=== PATIENT | male | born 1950 | race Two or more races ===

== ENCOUNTER 2018-10-17 02:23 | Inpatient (IN) | payer MEDICARE, OTHER ==
[2018-10-17] VITALS (7 sets, daily range): BP systolic 126–163; BP diastolic 60–74
[~2018-10-17] VITALS: Ht 162.6 cm; Wt 55.8 kg
--- NOTE | 2018-10-17 02:30 | NUR ---
ED Nurse Note: Pt JITENDRA from [facility]. AP states pt was desaturating around 70'-80's on RA. Once placed on 4L NC, pt has been saturating between 92-96%. Pt states no SOB experienced. VSS aside from bradycardia. Pt has hx of emphysema. Pt connected to monitor. Resting comfortably.
[2018-10-17] MEDS ORDERED: TRADJENTA5 MG PO (02:41)
[2018-10-17] MEDS ORDERED: RENVELA0.8 GM ORAL (02:41)
[2018-10-17] MEDS ORDERED: HUMALOG100 UNIT/3 SUBQ (02:41)
[2018-10-17] MEDS ORDERED: AMLODIPINE BESY10 MG ORAL (02:41)
[2018-10-17] MEDS ORDERED: NORCO 5-325 TA1 EACH ORAL (02:41)
[2018-10-17] MEDS ORDERED: [UNRECOGNIZED DRUG - OTHER] (02:41)
[2018-10-17] MEDS ORDERED: TRAMADOL HCL50 MG ORAL (02:41)
[2018-10-17] MEDS ORDERED: ASPIRIN EC81 MG ORAL (02:41)
[2018-10-17] MEDS ORDERED: [UNRECOGNIZED DRUG - OTHER] (02:41)
[2018-10-17] MEDS ORDERED: CYMBALTA20 MG ORAL (02:41)
[2018-10-17] MEDS ORDERED: DOCUSATE SODIU100 MG ORAL (02:41)
[2018-10-17] MEDS ORDERED: ATENOLOL50 MG ORAL (02:41)
[2018-10-17] MEDS ORDERED: NEPHROVITE1 TAB ORAL (02:41)
[2018-10-17] MEDS ORDERED: MIRCERA100 MCG/0. IJ (02:41)
[2018-10-17] MEDS ORDERED: PYRIDOXINE HCL50 MG ORAL (02:41)
[2018-10-17 03:03] LABS: HEMATOCRIT 36.3 % (42.0-52.0); HEMOGLOBIN 11.4 G/DL (14.2-18.0); MEAN CORPUSCULAR VOLUME 98 FL (80-99); PLATELET COUNT 135 K/UL (150-450); RED BLOOD COUNT 3.71 M/UL (4.70-6.10); RED CELL DISTRIBUTION WIDTH 19.6 % (11.6-14.8); WHITE BLOOD COUNT 5.8 K/UL (4.8-10.8)
[2018-10-17 03:08] LABS: ANION GAP 9 mmol/L (5-15); BLOOD UREA NITROGEN 48 mg/dL (7-18); CALCIUM 9.1 MG/DL (8.5-10.1); CARBON DIOXIDE 26 MMOL/L (21-32); CHLORIDE 103 MMOL/L (98-107); CREATININE 4.3 MG/DL (0.55-1.30); POTASSIUM 4.1 MMOL/L (3.5-5.1); SODIUM 138 MMOL/L (136-145)
[2018-10-17 03:21] LABS: ALANINE AMINOTRANSFERASE 16 U/L (12-78); ALBUMIN 2.7 G/DL (3.4-5.0); ALBUMIN/GLOBULIN RATIO 0.4 (1.0-2.7); ALKALINE PHOSPHATASE 231 U/L (46-116); ASPARTATE AMINO TRANSFERASE 19 U/L (15-37); BILIRUBIN,TOTAL 0.5 MG/DL (0.2-1.0); CKMB 1.6 NG/ML (0.0-3.6); CREATINE KINASE 25 U/L (26-308)
--- NOTE | 2018-10-17 03:27 | Emergency Room Report ---
History of Present Illness General Chief Complaint: Dyspnea/Respdistress Source: Patient, Medical Record, EMS Present Illness HPI Is a 67-year-old male with a history of renal failure on hemodialysis. He also has history of COPD. [facility]. Per nursing staff, oxygenation on room air was dropping to the 80s. Patient was asymptomatic. He has no complaint. Denies any pain. Denies any shortness of breath. He is not oxygen dependent. Allergies: Coded Allergies: PHENYTOIN (Verified Allergy, Unknown, 10/17/18) Uncoded Allergies: PENICILLIN (Allergy, Unknown, 10/17/18) Patient History Past Medical History: see triage record, old chart reviewed, HTN, renal disease , dialysis Past Surgical History: other Pertinent Family History: none Social History: Denies: smoking Immunizations: other Reviewed Nursing Documentation: PMH: Agreed; PSxH: Agreed Nursing Documentation-PMH Hx Hypertension: Yes - primary pulmonary hypertension Hx Diabetes: Yes Hx Dialysis: Yes - mon,wed, fri. esrd, anemia Hx Neurological Problems: Yes - aka amputation left leg, muscle weakness Review of Systems Eye: Denies: eye pain, blurred vision ENT: Denies: ear pain, nose congestion, throat swelling Respiratory: Denies: cough, shortness of breath Cardiovascular: Denies: chest pain, palpitations Gastrointestinal: Denies: abdominal pain, diarrhea, nausea, vomiting Musculoskeletal: Denies: back pain, joint pain Skin: Denies: rash Neurological: Denies: headache, numbness Endocrine: Denies: increased thirst, increased urine Hematologic/Lymphatic: Denies: easy bruising All Other Systems: negative except mentioned in HPI Physical Exam Vital Signs Date Time Temp Pulse Resp B/P (MAP) Pulse Ox O2 Delivery O2 Flow Rate FiO2 10/17/18 02:26 97.9 51 16 154/61 96 Room Air 10/17/18 02:30 4.0 vitals unremarkable Sp02 EP Interpretation: reviewed, normal General Appearance: well appearing, no apparent distress, alert Head: normocephalic, atraumatic Eyes: bilateral eye PERRL, bilateral eye EOMI ENT: hearing grossly normal, normal pharynx Neck: full range of motion, supple, no meningismus Respiratory: chest non-tender, other - Distant breath sounds Cardiovascular #1: regular rate, rhythm, no murmur Gastrointestinal: normal bowel sounds, non tender, no mass, no organomegaly, no bruit, non-distended Musculoskeletal: back normal, normal range of motion, other - Left BKA Neurologic: alert Psychiatric: mood/affect normal Skin: warm/dry Medical Decision Making Diagnostic Impression: Primary Impression: Fluid overload, unspecified Qualified Codes: E87.70 - Fluid overload, unspecified Additional Impression: ESRD (end stage renal disease) on dialysis ER Course Patient presents with hypoxia secondary to fluid overloaded. He is comfortable but when off of oxygen his oxygenation drops. [facility] note he's been noncompliant. Unknown whether or not he goes to dialysis regularly. We'll admit for dialysis. No evidence of pneumonia, ACS, PE to name a few. I contacted Dr. Michelle for admission for Dr. Andrade group. EKG Diagnostic Results Rate: normal Rhythm: NSR ST Segments: other - NSST changes Rhythm Strip Diag. Results Rhythm Strip Time: 03:26 EP Interpretation: yes Rate: 50 Rhythm: NSR, no PVC's, no ectopy Chest X-Ray Diagnostic Results Chest X-Ray Diagnostic Results : Chest X-Ray Ordered: Yes # of Views/Limited/Complete: 1 View Indication: Shortness of Breath EP Interpretation: Yes Interpretation: no effusion, no pneumothorax, other - CM with vasc congestion Impression: Other - chf Electronically Signed by: Malcolm Pratt MD Last Vital Signs Date Time Temp Pulse Resp B/P (MAP) Pulse Ox O2 Delivery O2 Flow Rate FiO2 10/17/18 02:30 97.9 51 16 154/61 96 Nasal Cannula 4.0 Status: improved Disposition: ELOPED Condition: Serious Referrals: Pam Andrade MD (PCP) Malcolm rPatt MD Oct 17, 2018 03:27
--- NOTE | 2018-10-17 04:50 | NUR ---
TRANSFER TO FLOOR: Patient transferred to Telemetry Unit, rm 202-1. Report given to SONG Hunter. All belongings taken to floor, belongings list signed and in chart. VSS. Deion/Ox4. Pt transferred to floor with technical system analyst and nurse at side. Attached to knife finisher.
--- NOTE | 2018-10-17 05:10 | NUR ---
NURSE NOTES: Received pt. from ED at 0450 via shari. Pt. transferred to bed without any incident. Received report from SONG Vargas. Pt. is A/O x 4. [place] pt. to unit, room, and hospital policies. physical security specialist is placed; pt. is in NSR. IV site intact, asymptomatic and patent. Bed is locked and in the lowest position. Call light within reach. Belongings list checked and signed. Vitals signs are stable. No SOB or acute distress noted at this time. Will contact Dr. Andrade for admission orders.
--- NOTE | 2018-10-17 06:45 | NUR ---
NURSE NOTES: Contacted Dr. Andrade for admission orders. call center operator doctor, Dr. Rawls was contacted. Awaiting call back.
--- NOTE | 2018-10-17 07:10 | NUR ---
NURSE NOTES: I received the patient resting in bed. Patient alert and oriented x4. Bed in the lowest position and call light within reach. IV patent and dressing dry and intact. I will continue to monitor the patient and implement care.
--- NOTE | 2018-10-17 07:15 | NUR ---
NURSE NOTES: Dr. Rawls called back to inform that Dr. Pham will input admission orders.
[2018-10-17] MEDS ORDERED: traMADol 50mg tab ORAL PRN (08:00)
--- NOTE | 2018-10-17 08:03 | History & Physical ---
History of Present Illness General Date patient seen: Oct 17, 2018 Time patient seen: 07:55 Reason for Hospitalization: Dyspnea/Respdistress Present Illness HPI 67 yo male with h/o dm, esrd, htn presents from SNF due to shortness of breath and desaturating on room air. Patient receives HD, last on Monday. Denies any chest pain, no n/v, denies any headaches, denies abd pain/nausea/vomiting. states he is compliant with medications. Requiring 4L ncl supplemental O2 to saturate above 90%, was low 80s high 70s on room air. social hx reviewed: denies smoking, alcohol use or drug use past fam hx reviewed: denies any sig past fam hx code status reviewed: full code Allergies: Coded Allergies: PHENYTOIN (Verified Allergy, Unknown, 10/17/18) Uncoded Allergies: PENICILLIN (Allergy, Unknown, 10/17/18) Medication History Scheduled Amlodipine Besylate* (Amlodipine Besylate*), 10 MG ORAL DAILY, (Reported) Aspirin Ec* (Aspirin Ec*), 81 MG ORAL DAILY, (Reported) Atenolol* (Tenormin*), 50 MG ORAL TWICE A DAY, (Reported) Docusate Sodium* (Docusate Sodium*), 200 MG ORAL DAILY, (Reported) Duloxetine (Cymbalta), 20 MG ORAL DAILY, (Reported) Pyridoxine Hcl* (Vitamin B-6*), 25 MG ORAL DAILY, (Reported) Sevelamer Carbonate* (Renvela*), 800 MG ORAL THREE TIMES A DAY, (Reported) Vitamin B Cmplx/Vit C/Folic AC (Nephro-Trent Tablet), 1 TAB ORAL DAILY, (Reported ) Scheduled PRN Hydrocodone Bit/Acetaminophen 5-325* ([place] 5-325*), 1 TAB ORAL Q4H PRN for For Pain, (Reported) Tramadol Hcl* (Ultram*), 50 MG ORAL Q6H PRN for For Pain, (Reported) Miscellaneous Medications Insulin Lispro (Humalog), 0 SUBQ, (Reported) Linagliptin (Tradjenta), 5 MG PO, (Reported) Methoxy Peg-Epoetin Beta (Mircera), 100 MCG IJ, (Reported) [lipovitan], (Reported) [voncomycin ivpb], (Reported) Patient History Healthcare decision maker Resuscitation status Full Code Advanced Directive on File Review of Systems Review of Symptoms General ROS: no weight loss or fever Psychological ROS: no depression or mood changes, no memory loss Ophthalmic ROS: no visual changes or eye irritation ENT ROS: no nasal congestion, hearing loss, dizziness Allergy and Immunology ROS: no allergic symptoms or urticaria Hematological and Lymphatic ROS: no swollen glands, unusual bleeding or bruising Endocrine ROS: no polyuria, polydipsia, weight changes, temperature intolerance Respiratory ROS: no cough, +shortness of breath, no wheezing Cardiovascular ROS: no chest pain or dyspnea on exertion Gastrointestinal ROS: denies abdominal pain, bright red blood in stool. Musculoskeletal ROS: no myalgias or arthralgias Neurological ROS: no TIA or stroke symptoms Dermatological ROS: no new or changing skin lesions, rashes or pruritis Physical Exam Physical Exam General appearance: alert, cooperative, no distress, appears stated age Head: Normocephalic, without obvious abnormality, atraumatic Eyes: conjunctivae/corneas clear. PERRL, EOM's intact. Fundi benign Throat: Lips, mucosa, and tongue normal. Teeth and gums normal Neck: supple, symmetrical, trachea midline, no adenopathy, thyroid: not enlarged, symmetric, no tenderness/mass/nodules, no carotid bruit and no JVD Lungs: clear to auscultation bilaterally Heart: regular rate and rhythm, S1, S2 normal, no murmur, click, rub or gallop Abdomen: soft, non-tender. Bowel sounds normal. No masses, no organomegaly Extremities: extremities normal, atraumatic, no cyanosis or edema Pulses: 2+ and symmetric Skin: Skin color, texture, turgor normal. No rashes or lesions Neurologic: Grossly normal Last 24 Hour Vital Signs Date Time Temp Pulse Resp B/P (MAP) Pulse Ox O2 Delivery O2 Flow Rate FiO2 10/17/18 05:07 Nasal Cannula 4.0 10/17/18 05:07 98.0 48 20 148/48 96 Nasal Cannula 4.0 10/17/18 05:00 97.7 49 18 126/70 (88) 91 10/17/18 02:30 97.9 51 16 154/61 96 Nasal Cannula 4.0 10/17/18 02:30 51 16 Room Air 10/17/18 02:26 97.9 51 16 154/61 96 Room Air Laboratory Tests Test 10/17/18 02:36 White Blood Count 5.8 K/UL (4.8-10.8) Red Blood Count 3.71 M/UL (4.70-6.10) L Hemoglobin 11.4 G/DL (14.2-18.0) L Hematocrit 36.3 % (42.0-52.0) L Mean Corpuscular Volume 98 FL (80-99) Mean Corpuscular Hemoglobin 30.7 PG (27.0-31.0) Mean Corpuscular Hemoglobin Concent 31.4 G/DL (32.0-36.0) L Red Cell Distribution Width 19.6 % (11.6-14.8) H Platelet Count 135 K/UL (150-450) L Mean Platelet Volume 9.2 FL (6.5-10.1) Neutrophils (%) (Auto) % (45.0-75.0) Lymphocytes (%) (Auto) % (20.0-45.0) Monocytes (%) (Auto) % (1.0-10.0) Eosinophils (%) (Auto) % (0.0-3.0) Basophils (%) (Auto) % (0.0-2.0) Sodium Level 138 MMOL/L (136-145) Potassium Level 4.1 MMOL/L (3.5-5.1) Chloride Level 103 MMOL/L (98-107) Carbon Dioxide Level 26 MMOL/L (21-32) Anion Gap 9 mmol/L (5-15) Blood Urea Nitrogen 48 mg/dL (7-18) H Creatinine 4.3 MG/DL (0.55-1.30) H Estimat Glomerular Filtration Rate 13.9 mL/min (>60) Glucose Level 151 MG/DL (74-106) H Calcium Level 9.1 MG/DL (8.5-10.1) Total Bilirubin 0.5 MG/DL (0.2-1.0) Aspartate Amino Transf (AST/SGOT) 19 U/L (15-37) Alanine Aminotransferase (ALT/SGPT) 16 U/L (12-78) Alkaline Phosphatase 231 U/L (46-116) H Total Creatine Kinase 25 U/L (26-308) L Creatine Kinase MB 1.6 NG/ML (0.0-3.6) Creatine Kinase MB Relative Index 6.4 Troponin I 0.031 ng/mL (0.000-0.056) Pro-B-Type Natriuretic Peptide > 65070 pg/mL (0-125) H Total Protein 9.4 G/DL (6.4-8.2) H Albumin 2.7 G/DL (3.4-5.0) L Globulin 6.7 g/dL Albumin/Globulin Ratio 0.4 (1.0-2.7) L Height (Feet): 5 Height (Inches): 4.00 Weight (Pounds): 124 Assessment/Plan Status: stable Assessment/Plan Acute Hypoxic respiratory Failure Fluid Overload ESRD on HD - desating to low 80s high 70s on room air, requiring 4L ncl supplemental o2 - fluid overloaded, patient has esrd on hd MWF, nephrology consulted, plan for HD soon - cont to monitor closely, adjust o2 needs accordingly - monitor labs - admit inpatient Essential HTN - resume home meds - monitor closely DMII - iss - accuchecks - monitor closely ppx: scd, HSQ diet: renal HD/diabetic diet DVT Prophylaxis: SCD, HSQ Code Status: Full Hospital Classification Declaration: Based on this initial evaluation, and depending on the patient's clinical course, I anticipate that this patient will require hospitalization for 2-3 days for fluid overload and close respiratory/ hemodynamic monitoring. I have reviewed all imaging, labs and medications Disposition: Once the patient is stable to leave the hospital, I anticipate the patient will likely be discharged to the following environment: home with vs SNF I spent over 66 minutes on this patient's case, and 45 minutes were dedicated to counseling and/or care coordination. Discussed with patient/family, nursing staff, SW/CM, and desktop support consultant regarding clinical status, treatment course, and disposition planning. Time of note may not reflect time of encounter. MIPS Hospital declaration INPATIENT level of care is warranted for this patient because patient is a 89 year old with esrd on hd who presents with suspicion of fluid overload. I have a high level of concern because patient is requiring supplemental o2. Patient is at high risk for resp compromise. Plan of care/treatment include supplemental o2, nephro consult, HD, close lab monitoring. Patient care is expected to be greater than 2 midnights. Disposition: Once the patient is stable to leave the hospital, I anticipate the patient will likely be discharged to the following environment: SNF Estimated discharge date: 10-20-18 MIPS (Merit-based Incentive Payment System) Applicable CPT: 60078 CHECK ALL THAT ARE MET: Measure #5 (CHF): All ages. Prescribe LOBITO/ARB upon discharge for patients with left ventricular systolic dysfunction. If not, the reason is clearly documented in the medical chart. Measure #8 (CHF): All ages. Prescribe a beta whit upon discharge for patients with left ventricular systolic dysfunction. If not, the reason is clearly documented in the medical chart. x Measure #47 Advance care plan or surrogate decision maker documented in the medical record. x Measure #130 The provider has documented, updated, or reviewed the patients current medication list and has documented it in the patients note. Measure #374 (All): Send report to referring provider. Measure #407(Sepsis due to MSSA bacteremia): Age 18+ Patient treated with a beta-lactam antibiotic (Nafcillin, Oxacillin or Cefazolin) as definitive therapy. MEDICAL COMPLEXITY High complexity medical decision making (need 2/3 categories) Problem - need 4 points x Acute/new problem with new plan for workup (4 points, 1 max) Acute/new problem without additional workup (3 points, 1 max) x Unstable chronic problem actively being managed (2 point each, 2 max) x Stable chronic problem actively being managed (1 point each, 2 max) Self-limited/transient process (constipation, muscle ache, etc) (1 point each , 2 max) Data - need 4 points x Reviewed labs/imaging studies (1 points, 2 max) x Independent review of imaging (EKG, xrays, etc) (2 points, 2 max) x Discussed case with consult/other MD/RN (2 points, 2 max) High Risk - qualify if have one of the following: x Severe exacerbation of acute problem, acute mental status change, IV narcotics, monitoring drug levels (vancomycin, INR, tacrolimus etc) Debby Pham MD Oct 17, 2018 08:03
--- NOTE | 2018-10-17 08:04 | General Progress Note ---
Advance Care Planning Advance Care Planning Advance Care Planning [facility] An independent Hospitalist group, where every patient is our [facility] Internal Medicine Hospitalist Advanced Care Planning Note Please contact us at Date of Discussion: A [id number] discussion with the patient regarding the patient's advanced care planning took place during this hospitalization on the above date. The discussion included the explanation and discussion of advance directives and associated forms/documents, as well as the patient's current code status. We also discussed at length the patient's medical conditions (both acute and chronic), general prognosis, treatment options, and goals of care. The following summarizes the discussion: Advance Care Planning/Goals of Care: - Will attempt to fill out an AD and/or POLST with the patient prior to discharge, if not already completed - Continue current evaluation and management of any acute and chronic medical issues - Will continue to support the patient/family - Will continue to discuss both short- and long-term goals of care DPOA-HC/Surrogate Decision Maker: None currently appointed Code Status: Full Code Advanced Care Planning Forms/Documents Completed: Deferred until later encounter/visit A total of 35 minutes was spent on this discussion, including counseling, answering questions, and completing, if any, pertinent advanced care planning forms/documents. Time of note may not reflect time of encounter. Debby Pham MD Oct 17, 2018 08:04
--- NOTE | 2018-10-17 08:10 | NUR ---
HAND-OFF: Report given to SONG Bustamante.
--- NOTE | 2018-10-17 08:19 | NUR ---
NURSE NOTES: [facility] dialysis contacted about patient's dialysis order for 10/17.
[2018-10-17] MEDS: Pyridoxine 50mg tab ORAL SCH (08:51)
[2018-10-17] MEDS: Nephrovite tab (Rena-Vite) ORAL SCH (08:52)
[2018-10-17] MEDS: Aspirin EC 81mg tab ORAL SCH (08:55)
[2018-10-17] MEDS: Docusate 100mg cap ORAL SCH (08:55)
[2018-10-17] MEDS: NovoLOG Insulin Flexpen SUBQ SCH ×3 (11:30→21:01)
--- NOTE | 2018-10-17 12:02 | Diagnostic Imaging Report ---
Indication: Shortness of breath Technique: One view of the chest Comparison: none Findings: Triangular opacity in the right perihilar region likely represents an area of atelectasis or scarring, although mass lesion or consolidation or not excludable. There is somewhat ill-defined interstitial and airspace disease at the right lung base, suspect mostly chronic. There is bilateral perihilar acute wall thickening. There is a 1.6 cm nodule at the left lung base, equivocally calcified. The pleural spaces are clear. The heart size is upper limits of normal. Vascular stents are seen in the right arm and in the expected region of the right innominate vein. Calcified granuloma is seen in the right infrahilar region Impression: Right perihilar atelectasis or scar versus mass or infiltrate. Recommend follow-up radiographs. Ill-defined right basilar opacities, likely chronic but could represent acute infiltrate Left basilar 1.6 cm nodule, likely but not definitively a calcified granuloma. Further CT follow-up should be considered or comparison with any outside images that may be available Other findings as noted Findings discussed by phone with Dr. Cross at the time of interpretation
--- NOTE | 2018-10-17 13:43 | NUR ---
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 97.9 HR 51 RR 16 B/P 154/61 BNP>[id number] CXR= RIGHT PERIHILAR ATELECTASIS OR MASS OR INFILTRATES IS: LASIX IV ADMITTED TO TELE @ 0400 TELE STATUS DCP RETURN TO [facility]
--- NOTE | 2018-10-17 13:50 | NUR ---
NURSE NOTES: Patient refused dialysis treatment. Dr. Priec made aware. Patient resting in bed. He does not display any signs of distress or SOB. Bed in the lowest position and call light within reach.
--- NOTE | 2018-10-17 14:00 | Consultation ---
Consult Note Consult Note asked to eval for dialysis management- Is a 67-year-old male with a history of renal failure on hemodialysis. He also has history of COPD. He was brought in by EMS from long term for decreased oxygenation. Per nursing staff, oxygenation on room air was dropping to the 80s. Patient was asymptomatic. He has no complaint. Denies any pain. Denies any shortness of breath. He is not oxygen dependent. Allergies: Coded Allergies: PHENYTOIN (Verified Allergy, Unknown, 10/17/18) Uncoded Allergies: PENICILLIN (Allergy, Unknown, 10/17/18) Hx Hypertension: Yes - primary pulmonary hypertension Hx Diabetes: Yes Hx Dialysis: Yes - mon,wed, fri. esrd, anemia Hx Neurological Problems: Yes - aka amputation left leg, muscle weakness interviewed examined Assessment/Plan ESRD on HD M W Fr has right arm fistula Volume overload bradycardia HD and UF garo adjust BP meds 2D Echo stop beta blockers Alessandro Price MD Oct 17, 2018 14:00
[2018-10-17] MEDS ORDERED: HydrALAZINE 25mg tab ORAL SCH (14:06)
[2018-10-17] MEDS: HydrALAZINE 25mg tab ORAL SCH ×2 (14:26→18:34)
--- NOTE | 2018-10-17 14:38 | Consultation ---
History of Present Illness General Date patient seen: Oct 17, 2018 Chief Complaint: Dyspnea/Respdistress Present Illness Allergies: Coded Allergies: PHENYTOIN (Verified Allergy, Unknown, 10/17/18) Uncoded Allergies: PENICILLIN (Allergy, Unknown, 10/17/18) Medication History Scheduled Amlodipine Besylate* (Amlodipine Besylate*), 10 MG ORAL DAILY, (Reported) Aspirin Ec* (Aspirin Ec*), 81 MG ORAL DAILY, (Reported) Atenolol* (Tenormin*), 50 MG ORAL TWICE A DAY, (Reported) Docusate Sodium* (Docusate Sodium*), 200 MG ORAL DAILY, (Reported) Duloxetine (Cymbalta), 20 MG ORAL DAILY, (Reported) Pyridoxine Hcl* (Vitamin B-6*), 25 MG ORAL DAILY, (Reported) Sevelamer Carbonate* (Renvela*), 800 MG ORAL THREE TIMES A DAY, (Reported) Vitamin B Cmplx/Vit C/Folic AC (Nephro-Trent Tablet), 1 TAB ORAL DAILY, (Reported ) Scheduled PRN Hydrocodone Bit/Acetaminophen 5-325* ([place] 5-325*), 1 TAB ORAL Q4H PRN for For Pain, (Reported) Tramadol Hcl* (Ultram*), 50 MG ORAL Q6H PRN for For Pain, (Reported) Miscellaneous Medications Insulin Lispro (Humalog), 0 SUBQ, (Reported) Linagliptin (Tradjenta), 5 MG PO, (Reported) Methoxy Peg-Epoetin Beta (Mircera), 100 MCG IJ, (Reported) [lipovitan], (Reported) [voncomycin ivpb], (Reported) Patient History Healthcare decision maker Resuscitation status Full Code Advanced Directive on File Physical Exam Last 24 Hour Vital Signs Date Time Temp Pulse Resp B/P (MAP) Pulse Ox O2 Delivery O2 Flow Rate FiO2 10/17/18 14:26 154/77 10/17/18 11:53 51 10/17/18 11:36 98.0 18 157/72 (100) 100 10/17/18 09:00 48 157/72 10/17/18 09:00 48 157/72 10/17/18 08:00 Nasal Cannula 4.0 10/17/18 08:00 97.5 18 149/68 (95) 99 10/17/18 07:54 48 10/17/18 05:07 Nasal Cannula 4.0 10/17/18 05:07 98.0 48 20 148/48 96 Nasal Cannula 4.0 10/17/18 05:00 97.7 49 18 126/70 (88) 91 10/17/18 02:30 97.9 51 16 154/61 96 Nasal Cannula 4.0 10/17/18 02:30 51 16 Room Air 10/17/18 02:26 97.9 51 16 154/61 96 Room Air Laboratory Tests Test 10/17/18 02:36 White Blood Count 5.8 K/UL (4.8-10.8) Red Blood Count 3.71 M/UL (4.70-6.10) L Hemoglobin 11.4 G/DL (14.2-18.0) L Hematocrit 36.3 % (42.0-52.0) L Mean Corpuscular Volume 98 FL (80-99) Mean Corpuscular Hemoglobin 30.7 PG (27.0-31.0) Mean Corpuscular Hemoglobin Concent 31.4 G/DL (32.0-36.0) L Red Cell Distribution Width 19.6 % (11.6-14.8) H Platelet Count 135 K/UL (150-450) L Mean Platelet Volume 9.2 FL (6.5-10.1) Neutrophils (%) (Auto) % (45.0-75.0) Lymphocytes (%) (Auto) % (20.0-45.0) Monocytes (%) (Auto) % (1.0-10.0) Eosinophils (%) (Auto) % (0.0-3.0) Basophils (%) (Auto) % (0.0-2.0) Sodium Level 138 MMOL/L (136-145) Potassium Level 4.1 MMOL/L (3.5-5.1) Chloride Level 103 MMOL/L (98-107) Carbon Dioxide Level 26 MMOL/L (21-32) Anion Gap 9 mmol/L (5-15) Blood Urea Nitrogen 48 mg/dL (7-18) H Creatinine 4.3 MG/DL (0.55-1.30) H Estimat Glomerular Filtration Rate 13.9 mL/min (>60) Glucose Level 151 MG/DL (74-106) H Calcium Level 9.1 MG/DL (8.5-10.1) Total Bilirubin 0.5 MG/DL (0.2-1.0) Aspartate Amino Transf (AST/SGOT) 19 U/L (15-37) Alanine Aminotransferase (ALT/SGPT) 16 U/L (12-78) Alkaline Phosphatase 231 U/L (46-116) H Total Creatine Kinase 25 U/L (26-308) L Creatine Kinase MB 1.6 NG/ML (0.0-3.6) Creatine Kinase MB Relative Index 6.4 Troponin I 0.031 ng/mL (0.000-0.056) C-Reactive Protein, Quantitative 4.8 mg/dL (0.00-0.90) H Pro-B-Type Natriuretic Peptide > 46370 pg/mL (0-125) H Total Protein 9.4 G/DL (6.4-8.2) H Albumin 2.7 G/DL (3.4-5.0) L Globulin 6.7 g/dL Albumin/Globulin Ratio 0.4 (1.0-2.7) L Height (Feet): 5 Height (Inches): 4.00 Weight (Pounds): 124 Medications Current Medications Medications (Trade) Dose Ordered Sig/Ronald Route PRN Reason Start Time Stop Time Status Last Admin Dose Admin Amlodipine Besylate (Norvasc) 10 mg DAILY ORAL 10/17/18 09:00 11/16/18 08:59 Aspirin (Ecotrin) 81 mg DAILY ORAL 10/17/18 09:00 11/16/18 08:59 Dextrose (Dextrose 50%) 25 ml Q30M PRN IV Hypoglycemia 10/17/18 08:00 11/16/18 07:59 Dextrose (Dextrose 50%) 50 ml Q30M PRN IV Hypoglycemia 10/17/18 08:00 11/16/18 07:59 Docusate Sodium (Colace) 200 mg DAILY ORAL 10/17/18 09:00 11/16/18 08:59 Duloxetine HCl (Cymbalta) 20 mg DAILY ORAL 10/17/18 09:00 11/16/18 08:59 10/17/18 08:51 Hydralazine HCl (Apresoline) 25 mg Q6HR ORAL 10/17/18 14:07 11/16/18 14:06 10/17/18 14:26 Insulin Aspart (NovoLOG) BEFORE MEALS AND HS SUBQ 10/17/18 11:30 11/16/18 11:29 Pyridoxine HCl (Vitamin B6) 25 mg DAILY ORAL 10/17/18 09:00 11/16/18 08:59 10/17/18 08:51 Sevelamer Carbonate (Renvela) 800 mg THREE TIMES A DAY ORAL 10/17/18 09:00 11/16/18 08:59 10/17/18 14:25 Tamsulosin HCl (Flomax) 0.4 mg BEDTIME ORAL 10/17/18 21:00 11/16/18 20:59 Tramadol HCl (Ultram) 50 mg Q6H PRN ORAL For Pain 10/17/18 08:00 10/24/18 07:59 Vitamin B Complex/ Vit C/Folic Acid (Nephrovite) 1 tab DAILY ORAL 10/17/18 09:00 11/16/18 08:59 10/17/18 08:52 Assessment/Plan Assessment/Plan Hematology Consultation REQ MD: Dr. Pham Date patient seen: Oct 17, 2018 Reason for Hospitalization: Dyspnea/Respdistress RFC: Hyperproteinemia, anemia, low plts HPI 67 yo male with h/o dm, esrd, htn presents from SNF due to shortness of breath and desaturating on room air. Patient receives HD, last on Monday. Denies any chest pain, no n/v, denies any headaches, denies abd pain/nausea/vomiting. states he is compliant with medications. Requiring 4L ncl supplemental O2 to saturate above 90%, was low 80s high 70s on room air. bnp was high on admission , this is his first one and heme was consulted, other lab work is pending Social hx reviewed: denies smoking, alcohol use or drug use Past fam hx reviewed: denies any sig past fam hx Code status reviewed: full code Allergies: PHENYTOIN (Verified Allergy, Unknown, 10/17/18) Uncoded Allergies: PENICILLIN (Allergy, Unknown, 10/17/18) Meds Amlodipine Besylate* (Amlodipine Besylate*), 10 MG ORAL DAILY, (Reported) Aspirin Ec* (Aspirin Ec*), 81 MG ORAL DAILY, (Reported) Atenolol* (Tenormin*), 50 MG ORAL TWICE A DAY, (Reported) Docusate Sodium* (Docusate Sodium*), 200 MG ORAL DAILY, (Reported) Duloxetine (Cymbalta), 20 MG ORAL DAILY, (Reported) Pyridoxine Hcl* (Vitamin B-6*), 25 MG ORAL DAILY, (Reported) Sevelamer Carbonate* (Renvela*), 800 MG ORAL THREE TIMES A DAY, (Reported) Vitamin B Cmplx/Vit C/Folic AC (Nephro-Trent Tablet), 1 TAB ORAL DAILY, (Reported ) Scheduled PRN Hydrocodone Bit/Acetaminophen 5-325* ([place] 5-325*), 1 TAB ORAL Q4H PRN for For Pain, (Reported) Tramadol Hcl* (Ultram*), 50 MG ORAL Q6H PRN for For Pain, (Reported) Miscellaneous Medications Insulin Lispro (Humalog), 0 SUBQ, (Reported) Linagliptin (Tradjenta), 5 MG PO, (Reported) Methoxy Peg-Epoetin Beta (Mircera), 100 MCG IJ, (Reported) [lipovitan], (Reported) [voncomycin ivpb], (Reported) Healthcare decision maker Resuscitation status Full Code Advanced Directive on File ROS: Constitutional: No fever, no chills, no night sweats, no fatigue Skin: No rashes, lumps, itchiness, dryness HEENT: No CARRERA, ear ache, visual changes, double vision, nosebleeds, sore throat, lumps, swollen glands Breasts: No lumps, pain, discharge Pulmonary: No cough, sputum, shortness of breath, coughing up blood, hemoptysis Cardiovascular: No chest pain, tightness, palpitations, syncope, claudication, orthopnea, PND GI: No nausea, vomiting, diarrhea, melena, hematochezia, change in appetite, abdominal pain : No dysuria, frequency, urgency, urinary incontinence, foamy urine Musculoskeletal: No joint swelling or muscle pain, trauma, back pain Neurologic: No dizziness, fainting, seizures, changes in smell or taste Psychiatric: No nervousness, stress, or depression, anxiety, hallucinations Endocrine: No weight change, heat or cold intolerance, tremor, insomnia Physical Exam: General Appearance: A+O x3, NAD HEENT: normocephalic, atraumatic Neck: non-tender, normal alignment Respiratory/Chest: chest wall non-tender, lungs clear Cardiovascular/Chest: normal peripheral pulses, normal rate Abdomen: normal bowel sounds, non tender Extremities: normal range of motion Last 24 Hour Vital Signs Date Time Temp Pulse Resp B/P (MAP) Pulse Ox O2 Delivery O2 Flow Rate FiO2 10/17/18 05:07 Nasal Cannula 4.0 10/17/18 05:07 98.0 48 20 148/48 96 Nasal Cannula 4.0 10/17/18 05:00 97.7 49 18 126/70 (88) 91 10/17/18 02:30 97.9 51 16 154/61 96 Nasal Cannula 4.0 10/17/18 02:30 51 16 Room Air 10/17/18 02:26 97.9 51 16 154/61 96 Room Air Laboratory Tests Test 10/17/18 02:36 White Blood Count 5.8 K/UL (4.8-10.8) Red Blood Count 3.71 M/UL (4.70-6.10) L Hemoglobin 11.4 G/DL (14.2-18.0) L Hematocrit 36.3 % (42.0-52.0) L Mean Corpuscular Volume 98 FL (80-99) Mean Corpuscular Hemoglobin 30.7 PG (27.0-31.0) Mean Corpuscular Hemoglobin Concent 31.4 G/DL (32.0-36.0) L Red Cell Distribution Width 19.6 % (11.6-14.8) H Platelet Count 135 K/UL (150-450) L Mean Platelet Volume 9.2 FL (6.5-10.1) Neutrophils (%) (Auto) % (45.0-75.0) Lymphocytes (%) (Auto) % (20.0-45.0) Monocytes (%) (Auto) % (1.0-10.0) Eosinophils (%) (Auto) % (0.0-3.0) Basophils (%) (Auto) % (0.0-2.0) Sodium Level 138 MMOL/L (136-145) Potassium Level 4.1 MMOL/L (3.5-5.1) Chloride Level 103 MMOL/L (98-107) Carbon Dioxide Level 26 MMOL/L (21-32) Anion Gap 9 mmol/L (5-15) Blood Urea Nitrogen 48 mg/dL (7-18) H Creatinine 4.3 MG/DL (0.55-1.30) H Estimat Glomerular Filtration Rate 13.9 mL/min (>60) Glucose Level 151 MG/DL (74-106) H Calcium Level 9.1 MG/DL (8.5-10.1) Total Bilirubin 0.5 MG/DL (0.2-1.0) Aspartate Amino Transf (AST/SGOT) 19 U/L (15-37) Alanine Aminotransferase (ALT/SGPT) 16 U/L (12-78) Alkaline Phosphatase 231 U/L (46-116) H Total Creatine Kinase 25 U/L (26-308) L Creatine Kinase MB 1.6 NG/ML (0.0-3.6) Creatine Kinase MB Relative Index 6.4 Troponin I 0.031 ng/mL (0.000-0.056) Pro-B-Type Natriuretic Peptide > 49802 pg/mL (0-125) H Total Protein 9.4 G/DL (6.4-8.2) H Albumin 2.7 G/DL (3.4-5.0) L Globulin 6.7 g/dL Albumin/Globulin Ratio 0.4 (1.0-2.7) L Height (Feet): 5 Height (Inches): 4.00 Weight (Pounds): 124 Assessment/Plan # Anemia of chronic disease (or of iron deficiency) due to underlying chronic medical issues, multifactorial --> Anemia w/u has been ordered --> No evidence of hemolysis is noted, peripheral smear has been reviewed. --> Hgb goal >7. Transfuse prn. --> Epogen or iron at this time is not particularly indicated # Thrombocytopenia - potential causes multifactorial, evaluate liver and viral etiologies to begin, also could be related to underlying medications patient has received. --> Hep panel and HIV ordered --> US abd to evaluate for cirrhosis and hsm ordered --> Peripheral smear ordered to evaluate for blasts /schistocytes --> abx and other meds have been reviewed --> ok for ppx if plt >50k w/ either heparin or lovenox --> Transfuse if Plt < 20k and fever, or if Plt < 10k without fever # Hyperproteinemia -- with elevated protein --> spep has been ordered # Anemia of kidney disease -- with esrd to see renal --> epo can consider as per renal # Acute Hypoxic respiratory Failure potentially due to Fluid Overload --> as per cards # ESRD on HD --> desating to low 80s high 70s on room air, requiring 4L ncl supplemental o2 --> fluid overloaded, patient has esrd on hd MWF, nephrology consulted, plan for HD soon --> cont to monitor closely, adjust o2 needs accordingly # Essential HTN --> resume home meds --> monitor closely # DMII --> iss --> accuchecks The timing of this note does not necessarily reflect the time of the patient was seen Greatly appreciate consultation! Vadim Márquez MD Oct 17, 2018 14:38
--- NOTE | 2018-10-17 14:41 | NUR ---
NURSE NOTES:WOUND CARE NOTES:Pt presents with full thickness ulcer R heel which pt stated he has had for approx 2 months (L)3.2cm x (W)2.5cm .20% slough noted to base of of wound ,otherwise romeo and moist.Bone palpable .(+) maceration along borders.Periwound fluctuant without erythema. Dark discoloration R 1st metatarsal with purplish colour at plantar aspect .Pt denied pain or tenderness when minimally palpated. L BKA stump with dry scab noted laterally at base of stump. Buttocks and sacrum without erythema or signs of skin breakdown.Sacral and coccygeal is bony and risks for skin breakdown. Pt demonstrated ability to self reposition when instructed and has been educated on preventing Skin breakdown.Instructed to reposition at least every1-2 hours and to avoid sliding against bed-linens. Tx.Plan:Cleanse R heel wound with Saline.Apply Therahoney to wound. Apply Cavilon Skin Barrier along borders and Periwound.Cover with Abd and wrap with Kerlix Daily and prn. Apply Benzoin Tincture Swab to R 1st metatarsal and wrap with Kerlix Daily and prn. Apply Moisture Barrier Paste to sacral area .Cover with Optifoam drsg .Change every 3 days and prn. Off-load R heel with pillow. Encourage and assist as needed with repositioning at least every 2hours or as tolerated.
--- NOTE | 2018-10-17 15:16 | Consultation ---
History of Present Illness General Date patient seen: Oct 17, 2018 Chief Complaint: Dyspnea/Respdistress Present Illness HPI 67M multiple medical comorbidities who is a long-term resident presented for SOB and respiratory insufficiency. Hx of chronic wounds being cared for at outside facility. Surgery called to evaluate and assist with care of wounds during hospital stay. patient seen, chart reviewed, patient examined. states he feels okay. has daily wound nurse at facility and weekly doctor visits Allergies: Coded Allergies: PHENYTOIN (Verified Allergy, Unknown, 10/17/18) Uncoded Allergies: PENICILLIN (Allergy, Unknown, 10/17/18) Medication History Scheduled Amlodipine Besylate* (Amlodipine Besylate*), 10 MG ORAL DAILY, (Reported) Aspirin Ec* (Aspirin Ec*), 81 MG ORAL DAILY, (Reported) Atenolol* (Tenormin*), 50 MG ORAL TWICE A DAY, (Reported) Docusate Sodium* (Docusate Sodium*), 200 MG ORAL DAILY, (Reported) Duloxetine (Cymbalta), 20 MG ORAL DAILY, (Reported) Pyridoxine Hcl* (Vitamin B-6*), 25 MG ORAL DAILY, (Reported) Sevelamer Carbonate* (Renvela*), 800 MG ORAL THREE TIMES A DAY, (Reported) Vitamin B Cmplx/Vit C/Folic AC (Nephro-Trent Tablet), 1 TAB ORAL DAILY, (Reported ) Scheduled PRN Hydrocodone Bit/Acetaminophen 5-325* ([place] 5-325*), 1 TAB ORAL Q4H PRN for For Pain, (Reported) Tramadol Hcl* (Ultram*), 50 MG ORAL Q6H PRN for For Pain, (Reported) Miscellaneous Medications Insulin Lispro (Humalog), 0 SUBQ, (Reported) Linagliptin (Tradjenta), 5 MG PO, (Reported) Methoxy Peg-Epoetin Beta (Mircera), 100 MCG IJ, (Reported) [lipovitan], (Reported) [voncomycin ivpb], (Reported) Patient History History Provided By: Patient, Medical Record, PMD Healthcare decision maker Resuscitation status Full Code Advanced Directive on File Past Medical/Surgical History Past Medical/Surgical History: (1) Hx of BKA (2) Decubitus ulcer of right heel, stage 4 (3) Fluid overload, unspecified (4) ESRD (end stage renal disease) on dialysis (5) CHF (congestive heart failure) Review of Systems Constitutional: Denies: no symptoms, see HPI, chills, sweats, fever, malaise, weakness, other Eye: Denies: no symptoms, see HPI, eye pain, blurred vision, tearing, double vision, nose pain, nose congestion, acuity changes, discharge, other ENT: Denies: no symptoms, see HPI, ear pain, ear discharge, nose pain, nose congestion, throat pain, throat swelling, mouth pain, hearing loss, nasal discharge, other Respiratory: Reports: cough, shortness of breath, wheezing; Denies: no symptoms , see HPI, orthopnea, stridor, MARKS, sputum, other Cardiovascular: Denies: no symptoms, see HPI, chest pain, edema, palpitations, syncope, PND, other Gastrointestinal: Denies: no symptoms, see HPI, abdominal pain, constipation, diarrhea, nausea, vomiting, melena, hematemesis, other Genitourinary: Denies: no symptoms, see HPI, discharge, dysuria, frequency, hematuria, pain, retention, incontinence, urgency, vag bleed/dc, other Musculoskeletal: Denies: no symptoms, see HPI, back pain, gout, joint pain, joint swelling, muscle pain, muscle stiffness, other Skin: Denies: no symptoms, see HPI, rash, change in color, change in hair/nails , dryness, lesions, other Psychiatric: Denies: no symptoms, see HPI, prior hx, anxiety, depressed feelings, emotional problems, SI, HI, hallucinations, other Neurological: Denies: no symptoms, see HPI, headache, numbness, paresthesia, seizure, tingling, tremors, focal weakness, syncope, dizziness, other Endocrine: Denies: no symptoms, see HPI, excessive sweating, flushing, intolerance to temperature, increased thirst, increased urine, unexplained weight loss, other Hematologic/Lymphatic: Denies: no symptoms, see HPI, anemia, blood clots, easy bleeding, easy bruising, swollen glands, diathesis, other All Other Systems: negative except mentioned in HPI Physical Exam General Appearance: no apparent distress, alert Lines, tubes and drains: peripheral HEENT: mucous membranes moist Neck: normal inspection Respiratory/Chest: no respiratory distress, no accessory muscle use, decreased breath sounds Cardiovascular/Chest: normal rate, regular rhythm Abdomen: soft, no organomegaly, no mass Extremities: other Skin Exam: warm/dry Neurologic: alert, responsive Last 24 Hour Vital Signs Date Time Temp Pulse Resp B/P (MAP) Pulse Ox O2 Delivery O2 Flow Rate FiO2 10/17/18 14:26 154/77 10/17/18 11:53 51 10/17/18 11:36 98.0 18 157/72 (100) 100 10/17/18 09:00 48 157/72 10/17/18 09:00 48 157/72 10/17/18 08:00 Nasal Cannula 4.0 10/17/18 08:00 97.5 18 149/68 (95) 99 10/17/18 07:54 48 10/17/18 05:07 Nasal Cannula 4.0 10/17/18 05:07 98.0 48 20 148/48 96 Nasal Cannula 4.0 10/17/18 05:00 97.7 49 18 126/70 (88) 91 10/17/18 02:30 97.9 51 16 154/61 96 Nasal Cannula 4.0 10/17/18 02:30 51 16 Room Air 10/17/18 02:26 97.9 51 16 154/61 96 Room Air Laboratory Tests Test 10/17/18 02:36 White Blood Count 5.8 K/UL (4.8-10.8) Red Blood Count 3.71 M/UL (4.70-6.10) L Hemoglobin 11.4 G/DL (14.2-18.0) L Hematocrit 36.3 % (42.0-52.0) L Mean Corpuscular Volume 98 FL (80-99) Mean Corpuscular Hemoglobin 30.7 PG (27.0-31.0) Mean Corpuscular Hemoglobin Concent 31.4 G/DL (32.0-36.0) L Red Cell Distribution Width 19.6 % (11.6-14.8) H Platelet Count 135 K/UL (150-450) L Mean Platelet Volume 9.2 FL (6.5-10.1) Neutrophils (%) (Auto) % (45.0-75.0) Lymphocytes (%) (Auto) % (20.0-45.0) Monocytes (%) (Auto) % (1.0-10.0) Eosinophils (%) (Auto) % (0.0-3.0) Basophils (%) (Auto) % (0.0-2.0) Sodium Level 138 MMOL/L (136-145) Potassium Level 4.1 MMOL/L (3.5-5.1) Chloride Level 103 MMOL/L (98-107) Carbon Dioxide Level 26 MMOL/L (21-32) Anion Gap 9 mmol/L (5-15) Blood Urea Nitrogen 48 mg/dL (7-18) H Creatinine 4.3 MG/DL (0.55-1.30) H Estimat Glomerular Filtration Rate 13.9 mL/min (>60) Glucose Level 151 MG/DL (74-106) H Calcium Level 9.1 MG/DL (8.5-10.1) Total Bilirubin 0.5 MG/DL (0.2-1.0) Aspartate Amino Transf (AST/SGOT) 19 U/L (15-37) Alanine Aminotransferase (ALT/SGPT) 16 U/L (12-78) Alkaline Phosphatase 231 U/L (46-116) H Total Creatine Kinase 25 U/L (26-308) L Creatine Kinase MB 1.6 NG/ML (0.0-3.6) Creatine Kinase MB Relative Index 6.4 Troponin I 0.031 ng/mL (0.000-0.056) C-Reactive Protein, Quantitative 4.8 mg/dL (0.00-0.90) H Pro-B-Type Natriuretic Peptide > 21302 pg/mL (0-125) H Total Protein 9.4 G/DL (6.4-8.2) H Total Protein (PEP) Pending Albumin 2.7 G/DL (3.4-5.0) L Albumin (PEP) Pending Globulin 6.7 g/dL Globulin (PEP) Pending Albumin/Globulin Ratio Pending [id number] Pending [id number] Pending Beta Globulins Pending Beta Gamma Globulin Pending PEP Abnormal Protein Bands Pending Protein Electrophoresis Interpret Pending Immunoglobulin G Pending Hepatitis A IgM Antibody Pending Hepatitis B Surface Antigen Pending Hepatitis B Core IgM Antibody Pending Hepatitis C Antibody Pending HIV (1&2) Antibody Rapid Negative (NEGATIVE) Height (Feet): 5 Height (Inches): 4.00 Weight (Pounds): 124 Medications Current Medications Medications (Trade) Dose Ordered Sig/Ronald Route PRN Reason Start Time Stop Time Status Last Admin Dose Admin Amlodipine Besylate (Norvasc) 10 mg DAILY ORAL 10/17/18 09:00 11/16/18 08:59 Aspirin (Ecotrin) 81 mg DAILY ORAL 10/17/18 09:00 11/16/18 08:59 Dextrose (Dextrose 50%) 25 ml Q30M PRN IV Hypoglycemia 10/17/18 08:00 11/16/18 07:59 Dextrose (Dextrose 50%) 50 ml Q30M PRN IV Hypoglycemia 10/17/18 08:00 11/16/18 07:59 Docusate Sodium (Colace) 200 mg DAILY ORAL 10/17/18 09:00 11/16/18 08:59 Duloxetine HCl (Cymbalta) 20 mg DAILY ORAL 10/17/18 09:00 11/16/18 08:59 10/17/18 08:51 Hydralazine HCl (Apresoline) 25 mg Q6HR ORAL 10/17/18 14:07 11/16/18 14:06 10/17/18 14:26 Insulin Aspart (NovoLOG) BEFORE MEALS AND HS SUBQ 10/17/18 11:30 11/16/18 11:29 Pyridoxine HCl (Vitamin B6) 25 mg DAILY ORAL 10/17/18 09:00 11/16/18 08:59 10/17/18 08:51 Sevelamer Carbonate (Renvela) 800 mg THREE TIMES A DAY ORAL 10/17/18 09:00 11/16/18 08:59 10/17/18 14:25 Tamsulosin HCl (Flomax) 0.4 mg BEDTIME ORAL 10/17/18 21:00 11/16/18 20:59 Tramadol HCl (Ultram) 50 mg Q6H PRN ORAL For Pain 10/17/18 08:00 10/24/18 07:59 Vitamin B Complex/ Vit C/Folic Acid (Nephrovite) 1 tab DAILY ORAL 10/17/18 09:00 11/16/18 08:59 10/17/18 08:52 Assessment/Plan Problem List: (1) Hx of BKA Assessment & Plan: left bka wound stable flap stable ICD Codes: Z89.519 - Acquired absence of unspecified leg below knee SNOMED: 136855397, [id number] (2) Decubitus ulcer of right heel, stage 4 Assessment & Plan: Pt presents with full thickness stage 4 ulcer R heel which pt stated he has had for approx 2 months old (L)3.2cm x (W)2.5cm .20% slough noted to base of of wound ,otherwise romeo and moist.Bone palpable .(+) maceration along borders.Periwound fluctuant without erythema. Dark discoloration R 1st metatarsal with purplish colour at plantar aspect .Pt denied pain or tenderness when minimally palpated. L BKA stump with dry scab noted laterally at base of stump. Buttocks and sacrum without erythema or signs of skin breakdown. Sacral and coccygeal is bony and risks for skin breakdown. Pt demonstrated ability to self reposition when instructed and has been educated on preventing Skin breakdown. Instructed to reposition at least every1-2 hours and to avoid sliding against bed-linens. Plan: Cleanse R heel wound with Saline.Apply Therahoney to wound. Apply Cavilon Skin Barrier along borders and Periwound.Cover with Abd and wrap with Kerlix Daily and prn. Apply Benzoin Tincture Swab to R 1st metatarsal and wrap with Kerlix Daily and prn. Apply Moisture Barrier Paste to sacral area .Cover with Optifoam drsg .Change every 3 days and prn. Off-load R heel with pillow. Encourage and assist as needed with repositioning at least every 2hours or as tolerated. ICD Codes: L89.614 - Pressure ulcer of right heel, stage 4 SNOMED: 911365278 (3) Fluid overload, unspecified ICD Codes: E87.70 - Fluid overload, unspecified SNOMED: 41617944 Qualifiers: Qualified Codes: E87.70 - Fluid overload, unspecified Damian Michaels Oct 17, 2018 15:16
--- NOTE | 2018-10-17 15:28 | NUR ---
CARDIOLOGY : PT REFUSED 2-D ECHO .
--- NOTE | 2018-10-17 17:48 | NUR ---
NURSE NOTES: Patient became very upset and agitated and stated that he wants to leave. I talked with the patient and explained to him it was not safe for him to leave. I explained to the patient that it is not safe for him to leave, but he does have the right to leave AMA. That he needs to be able to leave independently if he leaves AMA. I asked if he has any family to call and he said no. There is not a next of kin listed on the patient face sheet. The patient continues to be upset and yell that we are keeping him against his will. Dr. Pham made aware of the situation.
--- NOTE | 2018-10-17 18:22 | Cardiology Report ---
APPROVED REPORT EKG Measurement Heart [id number] Sinus bradycardia with 1st degree AV block Rightward axis Abnormal ECG
--- NOTE | 2018-10-17 18:40 | NUR ---
NURSE NOTES: Patient refused abdominal ultrasound. Dr. Márquez made aware. Patient resting in bed and does not display any signs of distress. NC set at 3L in place. Patient very upset about being in the hospital and wants to leave. I have talked with the patient multiple times as to why he is here. He keeps repeating that we are keeping him here against his will. I educated the patient about leaving AMA. Bed in the lowest position, bed alarm on and call light within reach.
--- NOTE | 2018-10-17 19:05 | NUR ---
HAND-OFF: Report given to SONG Sanchez.
--- NOTE | 2018-10-17 19:06 | NUR ---
NURSE NOTES: Received report from SONG Bustamante. Patient in bed resting with no signs of acute distress. Respiration even and non labored on 4L NC. No SOB. Vitals stable. Bed in lowest position. Call light within reach. All needs attended and met. Will continue plan of care.
[2018-10-17] MEDS: Tamsulosin 0.4mg cap ORAL SCH (21:00)
[2018-10-18] VITALS: BP 136/58
[2018-10-18] MEDS: HydrALAZINE 25mg tab ORAL SCH ×4 (00:10→18:00)
[2018-10-18 04:00] VITALS: BP 120/43
[2018-10-18] MEDS: NovoLOG Insulin Flexpen SUBQ SCH ×4 (06:06→21:22)
--- NOTE | 2018-10-18 07:20 | NUR ---
NURSE NOTES: Received report from SONG Rm. Patient in bed resting, no active s/s cardiac, respiratory distress noticed at this time. IV site asymptomatic, patent, intact. Patient on 4L oxygen via NC. SB with 1st AVB with HR 49. Denies pain at this time. Bed in lowest position, side rails up x2, call light within reach. Endorsed need of OB stool collection. Will continue to monitor.
--- NOTE | 2018-10-18 07:21 | NUR ---
HAND-OFF: Report given to SONG Prather.
--- NOTE | 2018-10-18 07:46 | General Progress Note ---
Assessment/Plan Status: stable Assessment/Plan Acute Hypoxic respiratory Failure Fluid Overload ESRD on HD - desating to low 80s high 70s on room air, requiring 4L ncl supplemental o2 - fluid overloaded, patient has esrd on hd MWF, nephrology consulted, plan for HD soon - cont to monitor closely, adjust o2 needs accordingly - monitor labs - refused HD, states he only needs it twice a week and says he will do it tomorrow since his previous fire support man told him so. - admit inpatient Essential HTN - resume home meds - monitor closely DMII - iss - accuchecks - monitor closely ppx: scd, HSQ diet: renal HD/diabetic diet DVT Prophylaxis: SCD, HSQ Code Status: Full Hospital Classification Declaration: Based on this initial evaluation, and depending on the patient's clinical course, I anticipate that this patient will require hospitalization for 2-3 days for fluid overload and close respiratory/ hemodynamic monitoring. I have reviewed all imaging, labs and medications Disposition: Once the patient is stable to leave the hospital, I anticipate the patient will likely be discharged to the following environment: home with vs SNF I spent over 55 minutes on this patient's case, and 40 minutes were dedicated to counseling and/or care coordination. Discussed with patient/family, nursing staff, SW/CM, and surgery consultant regarding clinical status, treatment course, and disposition planning. Time of note may not reflect time of encounter. Subjective Date patient seen: Oct 18, 2018 Time patient seen: 07:39 Allergies: Coded Allergies: PHENYTOIN (Verified Allergy, Unknown, 10/17/18) Uncoded Allergies: PENICILLIN (Allergy, Unknown, 10/17/18) Subjective f/u fluid overload, esrd denies any cp very agitated wants to go home does not understand why he is here is from SNF refused HD took oxygen off, patient was desaturating to 77%, patient refused to look at monitor as proof to explain to him why he is here patient knows the year, knows his name, knows that he is in a hospital but does not remember the name ROS: 14 point ROS reviewed and negative except for the above Objective Last 24 Hour Vital Signs Date Time Temp Pulse Resp B/P (MAP) Pulse Ox O2 Delivery O2 Flow Rate FiO2 10/18/18 06:00 110/49 10/18/18 04:00 47 10/18/18 04:00 98.2 49 18 120/43 (68) 98 10/18/18 00:10 136/58 10/18/18 00:00 97.9 50 18 136/58 (84) 97 10/18/18 00:00 50 10/17/18 21:00 Nasal Cannula 4.0 10/17/18 20:00 53 10/17/18 20:00 97.7 18 163/60 (94) 96 10/17/18 18:34 143/72 10/17/18 18:33 53 143/72 (95) 10/17/18 16:00 97.9 20 160/74 (102) 98 10/17/18 15:09 51 10/17/18 14:26 154/77 10/17/18 11:53 51 10/17/18 11:36 98.0 18 157/72 (100) 100 10/17/18 09:00 48 157/72 10/17/18 09:00 48 157/72 10/17/18 08:00 Nasal Cannula 4.0 10/17/18 08:00 97.5 18 149/68 (95) 99 10/17/18 07:54 48 Intake and Output 10/17/18 10/18/18 18:59 06:59 Intake Total 480 ml Balance 480 ml Intake Other 480 ml # Voids 2 Height (Feet): 5 Height (Inches): 4.00 Weight (Pounds): 124 Objective Physical Exam General appearance: alert, cooperative, no distress, appears stated age Head: Normocephalic, without obvious abnormality, atraumatic Eyes: conjunctivae/corneas clear. PERRL, EOM's intact. Fundi benign Throat: Lips, mucosa, and tongue normal. Teeth and gums normal Neck: supple, symmetrical, trachea midline, no adenopathy, thyroid: not enlarged, symmetric, no tenderness/mass/nodules, no carotid bruit and no JVD Lungs: clear to auscultation bilaterally Heart: regular rate and rhythm, S1, S2 normal, no murmur, click, rub or gallop Abdomen: soft, non-tender. Bowel sounds normal. No masses, no organomegaly Extremities: extremities normal, atraumatic, no cyanosis or edema Pulses: 2+ and symmetric Skin: Skin color, texture, turgor normal. No rashes or lesions Neurologic: Grossly normal Debby Pham MD Oct 18, 2018 07:46
[2018-10-18 08:00] VITALS: BP 131/44
--- NOTE | 2018-10-18 08:09 | NUR ---
NURSE NOTES: Dr. Pham made aware patient anxious. Per Dr. Pham ativan 2mg IV once. Order noted, entered, and carried out.
[2018-10-18] MEDS: Docusate 100mg cap ORAL SCH (08:46)
[2018-10-18] MEDS: Nephrovite tab (Rena-Vite) ORAL SCH (08:48)
[2018-10-18] MEDS: Aspirin EC 81mg tab ORAL SCH (08:48)
[2018-10-18] MEDS: Pyridoxine 50mg tab ORAL SCH (08:49)
[2018-10-18] MEDS ORDERED: LORazepam Inj 2mg/ml 1ml IV SCH (09:00)
--- NOTE | 2018-10-18 09:00 | NUR ---
NURSE NOTES: Dr. Price made aware patient refused HD today 10/18/18. Per Dr. Price, will order HD for tomorrow 10/19/18. Will continue to monitor.
--- NOTE | 2018-10-18 11:11 | NUR ---
RD ASSESSMENT & RECOMMENDATIONS SEE CARE ACTIVITY FOR COMPLETE ASSESSMENT DAILY ESTIMATED NEEDS: Needs based on ESRD on HD, stage 4 wound 56kg 30-35 kcals/kg 1046-0575 total kcals 1.25-1.8 g protein/kg 70-101 g total protein Fluid per MD, on HD NUTRITION DIAGNOSIS: Increased kcal and protein needs r/t wound healing and renal dysfunction as evidenced by pt w/ stage 4 R heel wound, w/ ESRD on HD. CURRENT DIET: RENAL/ CCHO MED PO DIET RECOMMENDATIONS: RENAL DIET (texture as tolerated) ADDITIONAL RECOMMENDATIONS: 1) Obtain a calibrated bed scale wt 2) Wound care: add PAT BID + nephrovite qdaily Add Vit C and Zn SO4 per nephrology 3) Monitor PO intake, variable appetite at this time 4) Add NEPRO 1 tetra david daily 5) Add HIGH PROTEIN snacks BID in b/w meals
--- NOTE | 2018-10-18 11:49 | Consultation ---
History of Present Illness General Chief Complaint: Dyspnea/Respdistress Present Illness HPI 67-year-old male with history of depression, anxiety, renal failure on hemodialysis and COPD. He was brought in by EMS from alf for SOB. the pt is known to me from [place]. the pt was on cymbalta for depression. the pt has hx of non-compliance and has been refusing HD. the pt was irrational and stated "it's all about money. you just want to HD to get money from insurance. i don't need HD." the pt was educated about his medical condition and HD. The pt in agreement to do HD. the pt has poor insight about his medical condition. Allergies: Coded Allergies: PHENYTOIN (Verified Allergy, Unknown, 10/17/18) Uncoded Allergies: PENICILLIN (Allergy, Unknown, 10/17/18) Medication History Scheduled Amlodipine Besylate* (Amlodipine Besylate*), 10 MG ORAL DAILY, (Reported) Aspirin Ec* (Aspirin Ec*), 81 MG ORAL DAILY, (Reported) Atenolol* (Tenormin*), 50 MG ORAL TWICE A DAY, (Reported) Docusate Sodium* (Docusate Sodium*), 200 MG ORAL DAILY, (Reported) Duloxetine (Cymbalta), 20 MG ORAL DAILY, (Reported) Pyridoxine Hcl* (Vitamin B-6*), 25 MG ORAL DAILY, (Reported) Sevelamer Carbonate* (Renvela*), 800 MG ORAL THREE TIMES A DAY, (Reported) Vitamin B Cmplx/Vit C/Folic AC (Nephro-Trent Tablet), 1 TAB ORAL DAILY, (Reported ) Scheduled PRN Hydrocodone Bit/Acetaminophen 5-325* ([place] 5-325*), 1 TAB ORAL Q4H PRN for For Pain, (Reported) Tramadol Hcl* (Ultram*), 50 MG ORAL Q6H PRN for For Pain, (Reported) Miscellaneous Medications Insulin Lispro (Humalog), 0 SUBQ, (Reported) Linagliptin (Tradjenta), 5 MG PO, (Reported) Methoxy Peg-Epoetin Beta (Mircera), 100 MCG IJ, (Reported) [lipovitan], (Reported) [voncomycin ivpb], (Reported) Patient History History Provided By: Patient, Medical Record, PMD Healthcare decision maker Resuscitation status Full Code Advanced Directive on File Past Medical/Surgical History Past Medical/Surgical History: (1) Fluid overload, unspecified (2) ESRD (end stage renal disease) on dialysis (3) CHF (congestive heart failure) (4) Decubitus ulcer of right heel, stage 4 Review of Systems Psychiatric: Reports: prior hx, anxiety, depressed feelings, emotional problems Physical Exam General Appearance: alert, moderate distress, overweight Last 24 Hour Vital Signs Date Time Temp Pulse Resp B/P (MAP) Pulse Ox O2 Delivery O2 Flow Rate FiO2 10/18/18 08:46 56 131/94 10/18/18 06:00 110/49 10/18/18 04:00 47 10/18/18 04:00 98.2 49 18 120/43 (68) 98 10/18/18 00:10 136/58 10/18/18 00:00 97.9 50 18 136/58 (84) 97 10/18/18 00:00 50 10/17/18 21:00 Nasal Cannula 4.0 10/17/18 20:00 53 10/17/18 20:00 97.7 18 163/60 (94) 96 10/17/18 18:34 143/72 10/17/18 18:33 53 143/72 (95) 10/17/18 16:00 97.9 20 160/74 (102) 98 10/17/18 15:09 51 10/17/18 14:26 154/77 10/17/18 11:53 51 Intake and Output 10/17/18 10/18/18 18:59 06:59 Intake Total 480 ml Balance 480 ml Other 480 ml # Voids 2 Height (Feet): 5 Height (Inches): 4.00 Weight (Pounds): 124 Medications Current Medications Medications (Trade) Dose Ordered Sig/Ronald Route PRN Reason Start Time Stop Time Status Last Admin Dose Admin Amlodipine Besylate (Norvasc) 10 mg DAILY ORAL 10/17/18 09:00 11/16/18 08:59 Aspirin (Ecotrin) 81 mg DAILY ORAL 10/17/18 09:00 11/16/18 08:59 10/18/18 08:48 Dextrose (Dextrose 50%) 25 ml Q30M PRN IV Hypoglycemia 10/17/18 08:00 11/16/18 07:59 Dextrose (Dextrose 50%) 50 ml Q30M PRN IV Hypoglycemia 10/17/18 08:00 11/16/18 07:59 Docusate Sodium (Colace) 200 mg DAILY ORAL 10/17/18 09:00 11/16/18 08:59 Duloxetine HCl (Cymbalta) 20 mg DAILY ORAL 10/17/18 09:00 11/16/18 08:59 10/18/18 08:48 Hydralazine HCl (Apresoline) 25 mg Q6HR ORAL 10/17/18 14:07 11/16/18 14:06 10/18/18 00:10 Insulin Aspart (NovoLOG) BEFORE MEALS AND HS SUBQ 10/17/18 11:30 11/16/18 11:29 10/17/18 21:01 Pyridoxine HCl (Vitamin B6) 25 mg DAILY ORAL 10/17/18 09:00 11/16/18 08:59 10/18/18 08:49 Sevelamer Carbonate (Renvela) 800 mg THREE TIMES A DAY ORAL 10/17/18 09:00 11/16/18 08:59 10/18/18 08:48 Tamsulosin HCl (Flomax) 0.4 mg BEDTIME ORAL 10/17/18 21:00 11/16/18 20:59 10/17/18 21:00 Tramadol HCl (Ultram) 50 mg Q6H PRN ORAL For Pain 10/17/18 08:00 10/24/18 07:59 Vitamin B Complex/ Vit C/Folic Acid (Nephrovite) 1 tab DAILY ORAL 10/17/18 09:00 11/16/18 08:59 10/18/18 08:48 Assessment/Plan Problem List: (1) MDD (2) Anxiety disorder ICD Codes: F41.9 - Anxiety disorder, unspecified SNOMED: [id number] Status: unchanged Assessment/Plan Cymbalta 30mg po qam the pt agrees to HD the pt has capacity to refuse HD The pt has capacity to leave Francisco Santiago MD Oct 18, 2018 11:49
[2018-10-18 12:00] VITALS: BP 137/70
[2018-10-18] MEDS ORDERED: LORazepam 1mg tab ORAL PRN (12:00)
--- NOTE | 2018-10-18 12:30 | NUR ---
NURSE NOTES: Dr. Pham made aware patient positive VRE rectum. No order given yet. Will continue to monitor.
--- NOTE | 2018-10-18 14:26 | General Progress Note ---
Assessment/Plan Assessment/Plan Assessment/Plan # Anemia of chronic disease (or of iron deficiency) due to underlying chronic medical issues, multifactorial --> Anemia w/u has been ordered --> No evidence of hemolysis is noted, peripheral smear has been reviewed. --> Hgb goal >7. Transfuse prn. --> Epogen or iron at this time is not particularly indicated # Thrombocytopenia - potential causes multifactorial, evaluate liver and viral etiologies to begin, also could be related to underlying medications patient has received. --> Hep panel and HIV ordered --> US abd to evaluate for cirrhosis and hsm ordered --> Peripheral smear ordered to evaluate for blasts /schistocytes --> abx and other meds have been reviewed --> ok for ppx if plt >50k w/ either heparin or lovenox --> Transfuse if Plt < 20k and fever, or if Plt < 10k without fever # Hyperproteinemia -- with elevated protein --> spep has been ordered # Anemia of kidney disease -- with esrd to see renal --> epo can consider as per renal # Acute Hypoxic respiratory Failure potentially due to Fluid Overload --> as per cards # ESRD on HD --> desating to low 80s high 70s on room air, requiring 4L ncl supplemental o2 --> fluid overloaded, patient has esrd on hd MWF, nephrology consulted, plan for HD soon --> cont to monitor closely, adjust o2 needs accordingly # Essential HTN --> resume home meds --> monitor closely # DMII --> iss --> accuchecks The timing of this note does not necessarily reflect the time of the patient was seen Greatly appreciate consultation! Subjective Constitutional: Denies: no symptoms, chills, diaphoresis, fever, malaise, weakness, other HEENT: Denies: no symptoms, eye pain, blurred vision, tearing, double vision, ear pain, ear discharge, nose pain, nose congestion, throat pain, throat swelling, mouth pain, mouth swelling, other Cardiovascular: Denies: no symptoms, chest pain, edema, irregular heart rate, lightheadedness, palpitations, syncope, other Respiratory: Denies: no symptoms, cough, orthopnea, shortness of breath, SOB with excertion, SOB at rest, sputum, stridor, wheezing, other Gastrointestinal/Abdominal: Denies: no symptoms, abdomen distended, abdominal pain, black stools, tarry stools, blood in stool, constipated, diarrhea, difficulty swallowing, nausea, poor appetite, poor fluid intake, rectal bleeding , vomiting, other Genitourinary: Denies: no symptoms, burning, discharge, frequency, flank pain, hematuria, incontinence, pain, urgency, other Neurologic/Psychiatric: Denies: no symptoms, anxiety, depressed, emotional problems, headache, numbness, paresthesia, pre-existing deficit, seizure, tingling, tremors, weakness, other Endocrine: Denies: no symptoms, excessive sweating, flushing, intolerance to cold, intolerance to heat, increased hunger, increased thirst, increased urine, unexplained weight gain, unexplained weight loss, other Hematologic/Lymphatic: Denies: no symptoms, anemia, easy bleeding, easy bruising, other Allergies: Coded Allergies: PHENYTOIN (Verified Allergy, Unknown, 10/17/18) Uncoded Allergies: PENICILLIN (Allergy, Unknown, 10/17/18) Subjective 10/18: awake and comfortable, seen by bedside, HD tomorrow, +VRE rectum, plt 135. Objective Last 24 Hour Vital Signs Date Time Temp Pulse Resp B/P (MAP) Pulse Ox O2 Delivery O2 Flow Rate FiO2 10/18/18 13:56 137/70 10/18/18 08:46 56 131/94 10/18/18 06:00 110/49 10/18/18 04:00 47 10/18/18 04:00 98.2 49 18 120/43 (68) 98 10/18/18 00:10 136/58 10/18/18 00:00 97.9 50 18 136/58 (84) 97 10/18/18 00:00 50 10/17/18 21:00 Nasal Cannula 4.0 10/17/18 20:00 53 10/17/18 20:00 97.7 18 163/60 (94) 96 10/17/18 18:34 143/72 10/17/18 18:33 53 143/72 (95) 10/17/18 16:00 97.9 20 160/74 (102) 98 10/17/18 15:09 51 10/17/18 14:26 154/77 Intake and Output 10/17/18 10/18/18 19:00 07:00 Intake Total 480 ml Balance 480 ml Other 480 ml # Voids 2 Height (Feet): 5 Height (Inches): 4.00 Weight (Pounds): 124 Objective Physical Exam: General Appearance: A+O x3, NAD HEENT: normocephalic, atraumatic Neck: non-tender, normal alignment Respiratory/Chest: chest wall non-tender, lungs clear Cardiovascular/Chest: normal peripheral pulses, normal rate Abdomen: normal bowel sounds, non tender Extremities: normal range of motion Vadim Márquez MD Oct 18, 2018 14:26
--- NOTE | 2018-10-18 14:52 | Surgery Progress Note ---
Surgery Progress Note Subjective Additional Comments no acute events. labs noted. comfortable. Objective Last 24 Hour Vital Signs Date Time Temp Pulse Resp B/P (MAP) Pulse Ox O2 Delivery O2 Flow Rate FiO2 10/18/18 13:56 137/70 10/18/18 12:00 98.0 50 16 137/70 (92) 98 10/18/18 12:00 50 10/18/18 09:00 Nasal Cannula 4.0 10/18/18 08:46 56 131/94 10/18/18 08:00 97.2 50 16 131/44 (73) 98 10/18/18 08:00 49 10/18/18 06:00 110/49 10/18/18 04:00 47 10/18/18 04:00 98.2 49 18 120/43 (68) 98 10/18/18 00:10 136/58 10/18/18 00:00 97.9 50 18 136/58 (84) 97 10/18/18 00:00 50 10/17/18 21:00 Nasal Cannula 4.0 10/17/18 20:00 53 10/17/18 20:00 97.7 18 163/60 (94) 96 10/17/18 18:34 143/72 10/17/18 18:33 53 143/72 (95) 10/17/18 16:00 97.9 20 160/74 (102) 98 10/17/18 15:09 51 I&O Intake and Output 10/17/18 10/18/18 19:00 07:00 Intake Total 480 ml Balance 480 ml Other 480 ml # Voids 2 Dressing: saturated Wound: other Drains: other Cardiovascular: RSR Respiratory: clear Abdomen: soft, present bowel sounds, non-distended Extremities: other Plan Problems: (1) Hx of BKA Assessment & Plan: left bka wound stable flap stable (2) Decubitus ulcer of right heel, stage 4 Assessment & Plan: Pt presents with full thickness stage 4 ulcer R heel which pt stated he has had for approx 2 months old (L)3.2cm x (W)2.5cm .20% slough noted to base of of wound ,otherwise romeo and moist.Bone palpable .(+) maceration along borders.Periwound fluctuant without erythema. Dark discoloration R 1st metatarsal with purplish colour at plantar aspect .Pt denied pain or tenderness when minimally palpated. L BKA stump with dry scab noted laterally at base of stump. Buttocks and sacrum without erythema or signs of skin breakdown. Sacral and coccygeal is bony and risks for skin breakdown. Pt demonstrated ability to self reposition when instructed and has been educated on preventing Skin breakdown. Instructed to reposition at least every1-2 hours and to avoid sliding against bed-linens. Plan: Cleanse R heel wound with Saline.Apply Therahoney to wound. Apply Cavilon Skin Barrier along borders and Periwound.Cover with Abd and wrap with Kerlix Daily and prn. Apply Benzoin Tincture Swab to R 1st metatarsal and wrap with Kerlix Daily and prn. Apply Moisture Barrier Paste to sacral area .Cover with Optifoam drsg .Change every 3 days and prn. Off-load R heel with pillow. Encourage and assist as needed with repositioning at least every 2hours or as tolerated. Nutritional optimization to help with wound healing. Nutrition consult for recs thank you (3) Fluid overload, unspecified Damian Michaels Oct 18, 2018 14:52
[2018-10-18 16:00] VITALS: BP 105/57
--- NOTE | 2018-10-18 16:35 | Nephrology Progress Note ---
Assessment/Plan Problem List: (1) ESRD (end stage renal disease) on dialysis (2) Fluid overload, unspecified (3) Bradycardia Assessment ESRD on HD M W Fr has right arm fistula Volume overload bradycardia Plan HD and UF refused 10/17 re order HD 10/19 adjust BP meds 2D Echo stop beta blockers per consultants Subjective ROS Limited/Unobtainable: No Constitutional: Reports: malaise Objective Objective Last 24 Hour Vital Signs Date Time Temp Pulse Resp B/P (MAP) Pulse Ox O2 Delivery O2 Flow Rate FiO2 10/18/18 13:56 137/70 10/18/18 12:00 98.0 50 16 137/70 (92) 98 10/18/18 12:00 50 10/18/18 09:00 Nasal Cannula 4.0 10/18/18 08:46 56 131/94 10/18/18 08:00 97.2 50 16 131/44 (73) 98 10/18/18 08:00 49 10/18/18 06:00 110/49 10/18/18 04:00 47 10/18/18 04:00 98.2 49 18 120/43 (68) 98 10/18/18 00:10 136/58 10/18/18 00:00 97.9 50 18 136/58 (84) 97 10/18/18 00:00 50 10/17/18 21:00 Nasal Cannula 4.0 10/17/18 20:00 53 10/17/18 20:00 97.7 18 163/60 (94) 96 10/17/18 18:34 143/72 10/17/18 18:33 53 143/72 (95) Intake and Output 10/17/18 10/18/18 19:00 07:00 Intake Total 480 ml Balance 480 ml Other 480 ml # Voids 2 Height (Feet): 5 Height (Inches): 4.00 Weight (Pounds): 124 General Appearance: no apparent distress, other - uncoaporative Cardiovascular: normal rate Respiratory/Chest: decreased breath sounds Abdomen: distended, other - ascitis Alessandro Price MD Oct 18, 2018 16:35
--- NOTE | 2018-10-18 19:44 | NUR ---
NURSE NOTES: Called and spoke with May from [facility] and confirmed for routine hemodialysis for 10/19. Consent from patient done.
--- NOTE | 2018-10-18 19:51 | NUR ---
HAND-OFF: Report given to SONG Rm.
[2018-10-18 20:00] VITALS: BP 126/50
[2018-10-18] MEDS: Tamsulosin 0.4mg cap ORAL SCH (21:00)
[2018-10-19] VITALS: BP 137/46
[2018-10-19 04:00] VITALS: BP 133/51
[2018-10-19] MEDS: HydrALAZINE 25mg tab ORAL SCH ×4 (06:00→18:00)
[2018-10-19] MEDS: NovoLOG Insulin Flexpen SUBQ SCH ×4 (06:20→20:43)
--- NOTE | 2018-10-19 07:15 | NUR ---
HAND-OFF: Report given to SONG Prather.
--- NOTE | 2018-10-19 07:36 | NUR ---
NURSE NOTES: Received report from SONG Rm. Patient in bed resting, no active s/s cardiac, respiratory distress noticed at this time. Denies pain at this time. SB w/ 1st AVB with HR 49, AOx3. Endorsed need of OB stool collection, HD today, US abd. IV site asymptomatic, patent, intact. Bed in lowest position, patient on 4L oxygen via NC, side rails up x2, call light within reach. Will continue to monitor.
--- NOTE | 2018-10-19 07:52 | General Progress Note ---
Assessment/Plan Status: stable Assessment/Plan Acute Hypoxic respiratory Failure Fluid Overload ESRD on HD - desating to low 80s high 70s on room air, requiring 4L ncl supplemental o2 - fluid overloaded, patient has esrd on hd MWF, nephrology consulted, plan for HD soon - cont to monitor closely, adjust o2 needs accordingly - monitor labs - refused HD, states he only needs it twice a week and says he will do it tomorrow since his previous contact worker lithography told him so. patient currently agreeable to HD however. - admit inpatient Essential HTN - resume home meds - monitor closely DMII - iss - accuchecks - monitor closely ppx: scd, HSQ diet: renal HD/diabetic diet DVT Prophylaxis: SCD, HSQ Code Status: Full Hospital Classification Declaration: Based on this initial evaluation, and depending on the patient's clinical course, I anticipate that this patient will require hospitalization for 2-3 days for fluid overload and close respiratory/ hemodynamic monitoring. I have reviewed all imaging, labs and medications Disposition: Once the patient is stable to leave the hospital, I anticipate the patient will likely be discharged to the following environment: home with HH vs SNF I spent over 55 minutes on this patient's case, and 40 minutes were dedicated to counseling and/or care coordination. Discussed with patient/family, nursing staff, SW/CM, and funeral pre need consultant regarding clinical status, treatment course, and disposition planning. Time of note may not reflect time of encounter. Subjective Date patient seen: Oct 19, 2018 Time patient seen: 07:51 Allergies: Coded Allergies: PHENYTOIN (Verified Allergy, Unknown, 10/17/18) Uncoded Allergies: PENICILLIN (Allergy, Unknown, 10/17/18) Subjective f/u fluid overload, esrd denies any cp still on supplemental o2 agreeing to do HD now ROS: 14 point ROS reviewed and negative except for the above Objective Last 24 Hour Vital Signs Date Time Temp Pulse Resp B/P (MAP) Pulse Ox O2 Delivery O2 Flow Rate FiO2 10/19/18 06:00 137/46 10/19/18 04:00 96.8 60 18 133/51 (78) 94 10/19/18 04:00 47 10/19/18 00:00 98.0 52 18 137/46 (76) 92 10/19/18 00:00 50 10/19/18 00:00 137/46 10/18/18 21:00 Nasal Cannula 4.0 10/18/18 20:00 97.1 59 18 126/50 (75) 92 10/18/18 20:00 52 10/18/18 18:00 105/54 10/18/18 16:00 97.1 52 16 105/57 (73) 98 10/18/18 16:00 51 10/18/18 13:56 137/70 10/18/18 12:00 98.0 50 16 137/70 (92) 98 10/18/18 12:00 50 10/18/18 09:00 Nasal Cannula 4.0 10/18/18 08:46 56 131/94 10/18/18 08:00 97.2 50 16 131/44 (73) 98 10/18/18 08:00 49 Intake and Output 10/18/18 10/19/18 18:59 06:59 Intake Total 360 ml Balance 360 ml Intake Oral 360 ml # Voids 2 # Bowel Movements 1 Height (Feet): 5 Height (Inches): 4.00 Weight (Pounds): 124 Objective Physical Exam General appearance: alert, cooperative, no distress, appears stated age Head: Normocephalic, without obvious abnormality, atraumatic Eyes: conjunctivae/corneas clear. PERRL, EOM's intact. Fundi benign Throat: Lips, mucosa, and tongue normal. Teeth and gums normal Neck: supple, symmetrical, trachea midline, no adenopathy, thyroid: not enlarged, symmetric, no tenderness/mass/nodules, no carotid bruit and no JVD Lungs: clear to auscultation bilaterally Heart: regular rate and rhythm, S1, S2 normal, no murmur, click, rub or gallop Abdomen: soft, non-tender. Bowel sounds normal. No masses, no organomegaly Extremities: extremities normal, atraumatic, no cyanosis or edema Pulses: 2+ and symmetric Skin: Skin color, texture, turgor normal. No rashes or lesions Neurologic: Grossly normal Debby Pham MD Oct 19, 2018 07:52
[2018-10-19 08:00] VITALS: BP 136/52
[2018-10-19] MEDS: Docusate 100mg cap ORAL SCH (09:00)
[2018-10-19] MEDS: DULoxetine 30mg cap ORAL SCH (09:00)
[2018-10-19] MEDS: Nephrovite tab (Rena-Vite) ORAL SCH (09:51)
[2018-10-19] MEDS: Pyridoxine 50mg tab ORAL SCH (09:51)
[2018-10-19] MEDS: Aspirin EC 81mg tab ORAL SCH (09:51)
--- NOTE | 2018-10-19 10:00 | NUR ---
NURSE NOTES: Dr. Price at nurse station. made aware that patient's hemodialysis order service is dated "10/17/18". Per Dr. Price acknowledged and stated okay to change hemodialysis service date to today, 10/19/18. Order entered, noted, and carried out. Will continue to monitor patient.
--- NOTE | 2018-10-19 10:31 | Nephrology Progress Note ---
Assessment/Plan Problem List: (1) ESRD (end stage renal disease) on dialysis (2) Fluid overload, unspecified (3) Bradycardia Assessment ESRD on HD M W Fr has right arm fistula Volume overload bradycardia Plan HD and UF refused 10/17 re order HD 10/19 adjust BP meds 2D Echo and labs not done as patient refuse stop beta blockers on hydralazin and procardia per consultants Subjective ROS Limited/Unobtainable: No Constitutional: Reports: malaise, weakness Objective Objective Last 24 Hour Vital Signs Date Time Temp Pulse Resp B/P (MAP) Pulse Ox O2 Delivery O2 Flow Rate FiO2 10/19/18 09:00 Nasal Cannula 4.0 10/19/18 09:00 48 136/52 10/19/18 08:00 97.2 48 18 136/52 (80) 98 10/19/18 06:00 137/46 10/19/18 04:00 96.8 60 18 133/51 (78) 94 10/19/18 04:00 47 10/19/18 00:00 98.0 52 18 137/46 (76) 92 10/19/18 00:00 50 10/19/18 00:00 137/46 10/18/18 21:00 Nasal Cannula 4.0 10/18/18 20:00 97.1 59 18 126/50 (75) 92 10/18/18 20:00 52 10/18/18 18:00 105/54 10/18/18 16:00 97.1 52 16 105/57 (73) 98 10/18/18 16:00 51 10/18/18 13:56 137/70 10/18/18 12:00 98.0 50 16 137/70 (92) 98 10/18/18 12:00 50 Intake and Output 10/18/18 10/19/18 18:59 06:59 Intake Total 360 ml Balance 360 ml Intake Oral 360 ml # Voids 2 # Bowel Movements 1 Height (Feet): 5 Height (Inches): 4.00 Weight (Pounds): 124 General Appearance: no apparent distress Cardiovascular: bradycardia Respiratory/Chest: decreased breath sounds Abdomen: distended, other - ascitis Alessandro Price MD Oct 19, 2018 10:31
--- NOTE | 2018-10-19 11:03 | General Progress Note ---
Assessment/Plan Problem List: (1) MDD (2) Anxiety disorder ICD Codes: F41.9 - Anxiety disorder, unspecified SNOMED: 342121636 Assessment/Plan Cymbalta 30mg po qam the pt agrees to HD the pt has capacity to refuse HD The pt has capacity to leave AMA Subjective Neurologic/Psychiatric: Reports: anxiety, depressed, emotional problems Allergies: Coded Allergies: PHENYTOIN (Verified Allergy, Unknown, 10/17/18) Uncoded Allergies: PENICILLIN (Allergy, Unknown, 10/17/18) Subjective the pt agrees to do HD. No insight distrustful of doctors Objective Last 24 Hour Vital Signs Date Time Temp Pulse Resp B/P (MAP) Pulse Ox O2 Delivery O2 Flow Rate FiO2 10/19/18 09:00 Nasal Cannula 4.0 10/19/18 09:00 48 136/52 10/19/18 08:00 97.2 48 18 136/52 (80) 98 10/19/18 08:00 47 10/19/18 06:00 137/46 10/19/18 04:00 96.8 60 18 133/51 (78) 94 10/19/18 04:00 47 10/19/18 00:00 98.0 52 18 137/46 (76) 92 10/19/18 00:00 50 10/19/18 00:00 137/46 10/18/18 21:00 Nasal Cannula 4.0 10/18/18 20:00 97.1 59 18 126/50 (75) 92 10/18/18 20:00 52 10/18/18 18:00 105/54 10/18/18 16:00 97.1 52 16 105/57 (73) 98 10/18/18 16:00 51 10/18/18 13:56 137/70 10/18/18 12:00 98.0 50 16 137/70 (92) 98 10/18/18 12:00 50 Intake and Output 10/18/18 10/19/18 18:59 06:59 Intake Total 360 ml Balance 360 ml Intake Oral 360 ml # Voids 2 # Bowel Movements 1 Height (Feet): 5 Height (Inches): 4.00 Weight (Pounds): 124 General Appearance: no apparent distress, alert Neurologic: oriented x 3, responsive, depressed affect Francisco Patel MD Oct 19, 2018 11:03
--- NOTE | 2018-10-19 11:16 | Surgery Progress Note ---
Surgery Progress Note Subjective Additional Comments no acute events. stable. labs noted. comfortable. Objective Last 24 Hour Vital Signs Date Time Temp Pulse Resp B/P (MAP) Pulse Ox O2 Delivery O2 Flow Rate FiO2 10/19/18 09:00 Nasal Cannula 4.0 10/19/18 09:00 48 136/52 10/19/18 08:00 97.2 48 18 136/52 (80) 98 10/19/18 08:00 47 10/19/18 06:00 137/46 10/19/18 04:00 96.8 60 18 133/51 (78) 94 10/19/18 04:00 47 10/19/18 00:00 98.0 52 18 137/46 (76) 92 10/19/18 00:00 50 10/19/18 00:00 137/46 10/18/18 21:00 Nasal Cannula 4.0 10/18/18 20:00 97.1 59 18 126/50 (75) 92 10/18/18 20:00 52 10/18/18 18:00 105/54 10/18/18 16:00 97.1 52 16 105/57 (73) 98 10/18/18 16:00 51 10/18/18 13:56 137/70 10/18/18 12:00 98.0 50 16 137/70 (92) 98 10/18/18 12:00 50 I&O Intake and Output 10/18/18 10/19/18 18:59 06:59 Intake Total 360 ml Balance 360 ml Intake Oral 360 ml # Voids 2 # Bowel Movements 1 Dressing: saturated Wound: clean Drains: other Cardiovascular: RSR Respiratory: clear, decreased breath sounds Abdomen: soft, non-distended Extremities: no cyanosis, other Plan Problems: (1) Hx of BKA Assessment & Plan: left bka wound stable flap stable (2) Decubitus ulcer of right heel, stage 4 Assessment & Plan: Pt presents with full thickness stage 4 ulcer R heel which pt stated he has had for approx 2 months old (L)3.2cm x (W)2.5cm .20% slough noted to base of of wound ,otherwise romeo and moist.Bone palpable .(+) maceration along borders.Periwound fluctuant without erythema. Dark discoloration R 1st metatarsal with purplish colour at plantar aspect .Pt denied pain or tenderness when minimally palpated. L BKA stump with dry scab noted laterally at base of stump. Buttocks and sacrum without erythema or signs of skin breakdown. Sacral and coccygeal is bony and risks for skin breakdown. Pt demonstrated ability to self reposition when instructed and has been educated on preventing Skin breakdown. Instructed to reposition at least every1-2 hours and to avoid sliding against bed-linens. Plan: Cleanse R heel wound with Saline.Apply Therahoney to wound. Apply Cavilon Skin Barrier along borders and Periwound.Cover with Abd and wrap with Kerlix Daily and prn. Apply Benzoin Tincture Swab to R 1st metatarsal and wrap with Kerlix Daily and prn. Apply Moisture Barrier Paste to sacral area .Cover with Optifoam drsg .Change every 3 days and prn. Off-load R heel with pillow. Encourage and assist as needed with repositioning at least every 2hours or as tolerated. Nutritional optimization to help with wound healing. Nutrition consult for recs thank you (3) Fluid overload, unspecified Damian Michaels Oct 19, 2018 11:16
--- NOTE | 2018-10-19 11:38 | Diagnostic Imaging Report ---
Indication: Abnormal liver function tests and abnormal renal function tests Technique: Bowen-scale and duplex images of the upper abdomen were obtained. Doppler interrogation of the pancreatic and hepatic vessels Comparison: none Findings: Gallbladder demonstrates wall thickening. However, no gallstones are evident. Gallbladder wall measures up to 6 mm thick. Sonographic Coffman's sign is negative. Common bile duct measures 4 mm in diameter. No intrahepatic biliary ductal dilatation. There are demonstrates equivocally slightly coarsened parenchymal echogenicity. There is definitely surface micronodularity. No focal abnormality Portal vein and hepatic veins are patent. Pancreas is unremarkable. Spleen is unremarkable. Left kidney measures 8 point cm in length. Right kidney measures 8.6 cm length. Both kidneys demonstrate increased echogenicity There is no hydronephrosis. Cysts are seen in the right kidney. Non-aneurysmal abdominal aorta . Moderate to large amount of ascites fluid is present. Also noted are bilateral pleural effusions Impression: Coarsened hepatic echogenicity and hepatic surface micronodularity, consistent with cirrhosis Ascites, likely related to the above Negative for gallstones. Gallbladder wall thickening is most likely due to to the hemodynamic derangements related to the hepatic disease. However, acute acalculous cholecystitis is also possible; consider nuclear medicine hepatobiliary scan if there is high clinical suspicion Negative for dilated bile ducts Bilateral pleural effusions Bilateral atrophic echogenic kidneys, consistent with known history dialysis dependent renal disease Incidental finding right renal cysts
[2018-10-19 12:00] VITALS: BP 115/73
[2018-10-19 13:27] LABS: BASOPHILS % (AUTO) 1.7 % (0.0-2.0); EOSINOPHILS % (AUTO) 3.3 % (0.0-3.0); HEMATOCRIT 33.1 % (42.0-52.0); HEMOGLOBIN 10.4 G/DL (14.2-18.0); LYMPHOCYTES % (AUTO) 17.4 % (20.0-45.0); MEAN CORPUSCULAR VOLUME 97 FL (80-99); MONOCYTES % (AUTO) 16.8 % (1.0-10.0); NEUTROPHILS % (AUTO) 60.8 % (45.0-75.0); PLATELET COUNT 150 K/UL (150-450); RED CELL DISTRIBUTION WIDTH 19.2 % (11.6-14.8); WHITE BLOOD COUNT 4.7 K/UL (4.8-10.8)
--- NOTE | 2018-10-19 13:49 | General Progress Note ---
Assessment/Plan Assessment/Plan Assessment/Plan # Anemia of chronic disease (or of iron deficiency) due to underlying chronic medical issues, multifactorial --> Anemia w/u has been ordered --> No evidence of hemolysis is noted, peripheral smear has been reviewed. --> Hgb goal >7. Transfuse prn. --> Epogen or iron at this time is not particularly indicated # Thrombocytopenia - potential causes multifactorial, evaluate liver and viral etiologies to begin, also could be related to underlying medications patient has received. --> Hep panel and HIV ordered --> US abd to evaluate for cirrhosis and hsm ordered --> Peripheral smear ordered to evaluate for blasts /schistocytes --> abx and other meds have been reviewed --> ok for ppx if plt >50k w/ either heparin or lovenox --> plt trend: 135--> 150 --> Transfuse if Plt < 20k and fever, or if Plt < 10k without fever # Hyperproteinemia -- with elevated protein --> spep has been ordered # Anemia of kidney disease -- with esrd to see renal --> epo can consider as per renal # Acute Hypoxic respiratory Failure potentially due to Fluid Overload --> as per cards # ESRD on HD --> desating to low 80s high 70s on room air, requiring 4L ncl supplemental o2 --> fluid overloaded, patient has esrd on hd MWF, nephrology consulted, plan for HD soon --> cont to monitor closely, adjust o2 needs accordingly # Essential HTN --> resume home meds --> monitor closely # DMII --> iss --> accuchecks The timing of this note does not necessarily reflect the time of the patient was seen Greatly appreciate consultation! Subjective Constitutional: Denies: no symptoms, chills, diaphoresis, fever, malaise, weakness, other HEENT: Denies: no symptoms, eye pain, blurred vision, tearing, double vision, ear pain, ear discharge, nose pain, nose congestion, throat pain, throat swelling, mouth pain, mouth swelling, other Cardiovascular: Denies: no symptoms, chest pain, edema, irregular heart rate, lightheadedness, palpitations, syncope, other Respiratory: Denies: no symptoms, cough, orthopnea, shortness of breath, SOB with excertion, SOB at rest, sputum, stridor, wheezing, other Gastrointestinal/Abdominal: Denies: no symptoms, abdomen distended, abdominal pain, black stools, tarry stools, blood in stool, constipated, diarrhea, difficulty swallowing, nausea, poor appetite, poor fluid intake, rectal bleeding , vomiting, other Genitourinary: Denies: no symptoms, burning, discharge, frequency, flank pain, hematuria, incontinence, pain, urgency, other Neurologic/Psychiatric: Denies: no symptoms, anxiety, depressed, emotional problems, headache, numbness, paresthesia, pre-existing deficit, seizure, tingling, tremors, weakness, other Endocrine: Denies: no symptoms, excessive sweating, flushing, intolerance to cold, intolerance to heat, increased hunger, increased thirst, increased urine, unexplained weight gain, unexplained weight loss, other Hematologic/Lymphatic: Denies: no symptoms, anemia, easy bleeding, easy bruising, other Allergies: Coded Allergies: PHENYTOIN (Verified Allergy, Unknown, 10/17/18) Uncoded Allergies: PENICILLIN (Allergy, Unknown, 10/17/18) Subjective 10/18: awake and comfortable, seen by bedside, HD tomorrow, +VRE rectum, plt 135. 10/19: Pt is seen by bedside, awake, comfortable, HD today, plt 150 Objective Last 24 Hour Vital Signs Date Time Temp Pulse Resp B/P (MAP) Pulse Ox O2 Delivery O2 Flow Rate FiO2 10/19/18 09:00 Nasal Cannula 4.0 10/19/18 09:00 48 136/52 10/19/18 08:00 97.2 48 18 136/52 (80) 98 10/19/18 08:00 47 10/19/18 06:00 137/46 10/19/18 04:00 96.8 60 18 133/51 (78) 94 10/19/18 04:00 47 10/19/18 00:00 98.0 52 18 137/46 (76) 92 10/19/18 00:00 50 10/19/18 00:00 137/46 10/18/18 21:00 Nasal Cannula 4.0 10/18/18 20:00 97.1 59 18 126/50 (75) 92 10/18/18 20:00 52 10/18/18 18:00 105/54 10/18/18 16:00 97.1 52 16 105/57 (73) 98 1/24/19 16:00 51 10/18/18 13:56 137/70 Intake and Output 10/18/18 10/19/18 19:00 07:00 Intake Total 360 ml Balance 360 ml Intake Oral 360 ml # Voids 2 # Bowel Movements 1 Laboratory Tests 10/19/18 13:15: White Blood Count 4.7L, Red Blood Count 3.40L, Hemoglobin 10.4L, Hematocrit 33.1L, Mean Corpuscular Volume 97, Mean Corpuscular Hemoglobin 30.5, Mean Corpuscular Hemoglobin Concent 31.4L, Red Cell Distribution Width 19.2H, Platelet Count 150, Mean Platelet Volume 8.9, Neutrophils (%) (Auto) 60.8, Lymphocytes (%) (Auto) 17.4L, Monocytes (%) (Auto) 16.8H, Eosinophils (%) (Auto ) 3.3H, Basophils (%) (Auto) 1.7, Sodium Level [Pending], Potassium Level [ Pending], Chloride Level [Pending], Carbon Dioxide Level [Pending], Blood Urea Nitrogen [Pending], Creatinine [Pending], Estimat Glomerular Filtration Rate [ Pending], Glucose Level [Pending], Hemoglobin A1c [Pending], Uric Acid [Pending] , Calcium Level [Pending], Phosphorus Level [Pending], Magnesium Level [Pending] , Iron Level [Pending], Unsaturated Iron Binding [Pending], Ferritin [Pending], Total Bilirubin [Pending], Gamma Glutamyl Transpeptidase [Pending], Aspartate Amino Transf (AST/SGOT) [Pending], Alanine Aminotransferase (ALT/SGPT) [Pending] , Alkaline Phosphatase [Pending], Ammonia [Pending], Pro-B-Type Natriuretic Peptide [Pending], Total Protein [Pending], Albumin [Pending], Globulin [Pending ], Triglycerides Level [Pending], Cholesterol Level [Pending], LDL Cholesterol [ Pending], HDL Cholesterol [Pending], Cholesterol/HDL Ratio [Pending], Vitamin B12 Level [Pending], Folate [Pending] Height (Feet): 5 Height (Inches): 4.00 Weight (Pounds): 124 Objective Physical Exam: General Appearance: A+O x3, NAD HEENT: normocephalic, atraumatic Neck: non-tender, normal alignment Respiratory/Chest: chest wall non-tender, lungs clear Cardiovascular/Chest: normal peripheral pulses, normal rate Abdomen: normal bowel sounds, non tender Extremities: normal range of motion Vadim Márquez MD Oct 19, 2018 13:49
[2018-10-19 14:01] LABS: AMMONIA 33 umol/L (11-32)
[2018-10-19 14:31] LABS: ALANINE AMINOTRANSFERASE 13 U/L (12-78); ALBUMIN 2.3 G/DL (3.4-5.0); ALBUMIN/GLOBULIN RATIO 0.4 (1.0-2.7); ALKALINE PHOSPHATASE 115 U/L (46-116); ANION GAP 11 mmol/L (5-15); ASPARTATE AMINO TRANSFERASE 14 U/L (15-37); BILIRUBIN,TOTAL 0.6 MG/DL (0.2-1.0); BLOOD UREA NITROGEN 70 mg/dL (7-18); CALCIUM 8.1 MG/DL (8.5-10.1); CARBON DIOXIDE 23 MMOL/L (21-32); CHLORIDE 104 MMOL/L (98-107); CHOLESTEROL 75 MG/DL (< 200); CREATININE 5.8 MG/DL (0.55-1.30); FERRITIN 745 NG/ML (8-388); GAMMA GLUTAMYL TRANSPEPTIDASE 160 U/L (5-85); HDL CHOLESTEROL 31 MG/DL (40-60); PHOSPHORUS 6.5 MG/DL (2.5-4.9); POTASSIUM 5.3 MMOL/L (3.5-5.1); SODIUM 138 MMOL/L (136-145); TRIGLYCERIDES 20 MG/DL (30-150)
[2018-10-19 15:04] LABS: FERRITIN 747 NG/ML (8-388); GAMMA GLUTAMYL TRANSPEPTIDASE 160 U/L (5-85)
[2018-10-19 15:29] LABS: % IRON SATURATION 25 % (15-50); IRON 43 ug/dL (50-175); TOTAL IRON BINDING CAPACITY 173 ug/dL (250-450)
--- NOTE | 2018-10-19 16:40 | NUR ---
NURSE NOTES: Patient refused medication and vital sign. Patient stated doctors promised him to discharge him after HD. HD done today 10/19/18 2L out 128/70, HR 54. Dr. Pham made aware patient wanted to be discharge. Per Dr. Pham patient will be discharged tomorrow to SNF. Case management consult is on the case. Will continue to monitor.
--- NOTE | 2018-10-19 19:48 | NUR ---
HAND-OFF: Report given to SONG Epperson.
--- NOTE | 2018-10-19 20:00 | NUR ---
NURSE NOTES: Pt awake/alert, laying in bed, breathing easily on room air, denies SOB and denies pain at this time. Vital signs stable abd pt refusing monitoring. Pt insisting on left forearm IV access removal, done. DEEPTI av shunt bruit and thrill present. Pt continually yells that he wants to go home, informed of d/c tomorrow. Bed left in low position, side rails up x 2 and call light left near pt's hand.
--- NOTE | 2018-10-19 20:39 | NUR ---
NURSE NOTES: Pt is refusing VS, Accu-chek and Insulin.
[2018-10-19] MEDS: Tamsulosin 0.4mg cap ORAL SCH (20:44)
[2018-10-20] MEDS: HydrALAZINE 25mg tab ORAL SCH ×2 (05:58)
[2018-10-20] MEDS: NovoLOG Insulin Flexpen SUBQ SCH ×2 (05:59→11:30)
--- NOTE | 2018-10-20 05:59 | NUR ---
NURSE NOTES: Pt continues to refuse vital signs, accu-chek and medications. Without accu-chek unable to admin. novolog.
--- NOTE | 2018-10-20 07:45 | NUR ---
NURSE NOTES: Received report from SONG Epperson. Patient in bed resting and finished eating breakfast. No respiratory/cardiac distress noticed at this time. Denies pain at this time. SB w/ 1st AVB with HR 48, AOx3. Patient refused insertion of IV saline lock, blood draws, and accuchecks. Patient adamantly [facility] Bed in lowest position, patient on 4L oxygen via NC, side rails up x2, call light within reach. Will continue to monitor and follow up with discharge planning. Addendum: 10/20/18 at 0844 by Jayce Martinez RN Amend heart monitor. Previous rhythm was SB with 1st AVB at 48. Throughout the nighte the patient refused the heart monitor and this morning still refused heart monitor.
[2018-10-20 08:00] VITALS: BP 141/92
[2018-10-20] MEDS: DULoxetine 30mg cap ORAL SCH (09:00)
[2018-10-20] MEDS: Docusate 100mg cap ORAL SCH (09:00)
--- NOTE | 2018-10-20 09:45 | Discharge Summary ---
Discharge Summary Hospital Course Date of Admission Oct 17, 2018 at 03:33 Date of Discharge 10/20/18 Admitting Diagnosis congestive heart failure HPI Emile Weber is a 67 year old male who was admitted on Oct 17, 2018 at 03: 33 for fluid overload state due to missed HD. patient requiring O2. Patient has been refusing HD on admit however after discussion patient agreed to HD. patient feeling better today. breathing improved. refused tte that was originally planned, however fluid overload state from esrd. stable for dc resume home meds dc back to snf, CV [place] Physical Exam General appearance: alert, cooperative, no distress, appears stated age Head: Normocephalic, without obvious abnormality, atraumatic Eyes: conjunctivae/corneas clear. PERRL, EOM's intact. Fundi benign Throat: Lips, mucosa, and tongue normal. Teeth and gums normal Neck: supple, symmetrical, trachea midline, no adenopathy, thyroid: not enlarged, symmetric, no tenderness/mass/nodules, no carotid bruit and no JVD Lungs: clear to auscultation bilaterally Heart: regular rate and rhythm, S1, S2 normal, no murmur, click, rub or gallop Abdomen: soft, non-tender. Bowel sounds normal. No masses, no organomegaly Extremities: extremities normal, atraumatic, no cyanosis or edema Pulses: 2+ and symmetric Skin: Skin color, texture, turgor normal. 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 patient currently agreeable to HD however. - admit inpatient Essential HTN - resume home meds - monitor closely DMII - iss - accuchecks - monitor closely ppx: scd, HSQ diet: renal HD/diabetic diet DVT Prophylaxis: SCD, HSQ Code Status: Full Hospital Classification Declaration: Based on this initial evaluation, and depending on the patient's clinical course, I anticipate that this patient will require hospitalization for 2-3 days for fluid overload and close respiratory/ hemodynamic monitoring. I have reviewed all imaging, labs and medications Disposition: Once the patient is stable to leave the hospital, I anticipate the patient will likely be discharged to the following environment: home with vs SNF I spent over 55 minutes on this patient's case, and 40 minutes were dedicated to counseling and/or care coordination. Discussed with patient/family, nursing staff, SW/CM, and instructional design consultant regarding clinical status, treatment course, and disposition planning. Time of note may not reflect time of encounter. Discharge Medications Continued Medications: Amlodipine Besylate* (Amlodipine Besylate*) 10 Mg Tablet 10 MG ORAL DAILY, TAB (This prescription has been renewed) Aspirin Ec* (Aspirin Ec*) 81 Mg Tablet.dr 81 MG ORAL DAILY, TAB (This prescription has been renewed) Atenolol* (Tenormin*) 50 Mg Tablet 50 MG ORAL TWICE A DAY, TAB (This prescription has been renewed) Docusate Sodium* (Docusate Sodium*) 100 Mg Capsule 200 MG ORAL DAILY, CAP (This prescription has been renewed) Duloxetine (Cymbalta) 20 Mg Capsule.dr 20 MG ORAL DAILY, CAP (This prescription has been renewed) Insulin Lispro (Humalog) 100 Unit/1 Ml Insuln.pen 0 SUBQ, #1 EA 0 Refills (This prescription has been renewed) Linagliptin (Tradjenta) 5 Mg Tablet 5 MG PO, TAB (This prescription has been renewed) Pyridoxine Hcl* (Vitamin B-6*) 50 Mg Tablet 25 MG ORAL DAILY, TAB 0 Refills (This prescription has been renewed) Sevelamer Carbonate* (Renvela*) 0.8 Gm Powd.pack 800 MG ORAL THREE TIMES A DAY, PACK (This prescription has been renewed) Vitamin B Cmplx/Vit C/Folic AC (Nephro-Trent Tablet) 0.8 Mg Tablet 1 TAB ORAL DAILY, #30 TAB 0 Refills (This prescription has been renewed) Discharge Condition Upon Discharge: stable Discharge Disposition Patient was discharged to SNF Discharge Diagnoses: (1) Decubitus ulcer of right heel, stage 4 (2) Fluid overload, unspecified (3) ESRD (end stage renal disease) on dialysis (4) Anxiety disorder Debby Pham MD Oct 20, 2018 09:45
--- NOTE | 2018-10-20 09:46 | NUR ---
NURSE NOTES: Spoke with Dr. Pham. patient to be discharge to SNF - [facility]. Made doctor aware of patient refusal of monitor, IV site, and certain medications. is aware.
[2018-10-20] MEDS: Nephrovite tab (Rena-Vite) ORAL SCH (09:50)
[2018-10-20] MEDS: Pyridoxine 50mg tab ORAL SCH (09:50)
[2018-10-20] MEDS: Aspirin EC 81mg tab ORAL SCH (09:50)
--- NOTE | 2018-10-20 10:39 | NUR ---
CASE MANAGEMENT: DCPNOTE UPON DISCHARGE PATIENT WILL TRANSFER BACK TO [facility] [phone] [address] PATIENT IN AGREEMENT WITH TRANSFERRING BACK TO THIS FACILITY. NO FAMILY NOTED ON FACESHEET TRANSPORTATION VIA [facility] [id number] ETA 13:00
--- NOTE | 2018-10-20 10:57 | Nephrology Progress Note ---
Assessment/Plan Problem List: (1) ESRD (end stage renal disease) on dialysis (2) Fluid overload, unspecified (3) Bradycardia (4) Anemia (5) Pleural effusion Assessment ESRD on HD M W Fr has right arm fistula Volume overload bradycardia Plan HD and UF refused 10/17 HD 10/19 DONE adjust BP meds 2D Echo and labs not done as patient refuse stop beta blockers on hydralazin and procardia per consultants Subjective ROS Limited/Unobtainable: No Constitutional: Reports: malaise Objective Objective Last 24 Hour Vital Signs Date Time Temp Pulse Resp B/P (MAP) Pulse Ox O2 Delivery O2 Flow Rate FiO2 10/20/18 09:50 54 141/92 10/20/18 08:00 97.0 54 21 141/92 (108) 93 10/20/18 00:00 115/73 10/19/18 21:00 Nasal Cannula 3.0 10/19/18 16:00 55 10/19/18 16:00 58 18 10/19/18 12:00 47 10/19/18 12:00 97.0 53 18 115/73 (87) 98 Intake and Output 10/19/18 10/20/18 18:59 06:59 Intake Total 120 ml 300 ml Balance 120 ml 300 ml Intake Oral 120 ml 300 ml # Voids 1 2 # Bowel Movements 1 1 Laboratory Tests 10/19/18 13:15: White Blood Count 4.7L, Red Blood Count 3.40L, Hemoglobin 10.4L, Hematocrit 33.1L, Mean Corpuscular Volume 97, Mean Corpuscular Hemoglobin 30.5, Mean Corpuscular Hemoglobin Concent 31.4L, Red Cell Distribution Width 19.2H, Platelet Count 150, Mean Platelet Volume 8.9, Neutrophils (%) (Auto) 60.8, Lymphocytes (%) (Auto) 17.4L, Monocytes (%) (Auto) 16.8H, Eosinophils (%) (Auto ) 3.3H, Basophils (%) (Auto) 1.7, Sodium Level 138, Potassium Level 5.3H, Chloride Level 104, Carbon Dioxide Level 23, Anion Gap 11, Blood Urea Nitrogen 70H, Creatinine 5.8H, Estimat Glomerular Filtration Rate 9.9, Glucose Level 90, Hemoglobin A1c 5.5, Uric Acid 4.5, Calcium Level 8.1L, Phosphorus Level 6.5H, Magnesium Level 2.8H, Iron Level 43L, Total Iron Binding Capacity 173L, Percent Iron Saturation 25, Unsaturated Iron Binding 130, Ferritin 745H, Total Bilirubin 0.6, Gamma Glutamyl Transpeptidase 160H, Aspartate Amino Transf (AST/ SGOT) 14L, Alanine Aminotransferase (ALT/SGPT) 13, Alkaline Phosphatase 115, Ammonia 33H, Pro-B-Type Natriuretic Peptide > 45772L, Total Protein 8.1, Albumin 2.3L, Globulin 5.8, Albumin/Globulin Ratio 0.4L, Triglycerides Level 20L , Cholesterol Level 75, LDL Cholesterol 42, HDL Cholesterol 31L, Cholesterol/ HDL Ratio 2.4L, Vitamin B12 Level 934, Folate 39.2 10/19/18 14:10: Stool Occult Blood [Pending] Height (Feet): 5 Height (Inches): 4.00 Weight (Pounds): 123 General Appearance: no apparent distress Cardiovascular: bradycardia Respiratory/Chest: decreased breath sounds Abdomen: distended Alessandro Price MD Oct 20, 2018 10:57
[2018-10-20 12:00] VITALS: BP 158/69
[2018-10-20 13:16] VITALS: BP 158/92
[2018-10-20] MEDS ORDERED: HydrALAZINE 50mg tab ORAL SCH (14:00)
--- NOTE | 2018-10-20 19:58 | General Progress Note ---
Assessment/Plan Assessment/Plan Assessment/Plan # Anemia of chronic disease (or of iron deficiency) due to underlying chronic medical issues, multifactorial --> Anemia w/u has been ordered --> No evidence of hemolysis is noted, peripheral smear has been reviewed. --> Hgb goal >7. Transfuse prn. --> Epogen or iron at this time is not particularly indicated # Thrombocytopenia - potential causes multifactorial, evaluate liver and viral etiologies to begin, also could be related to underlying medications patient has received. --> Hep panel and HIV ordered --> US abd to evaluate for cirrhosis and hsm ordered --> Peripheral smear ordered to evaluate for blasts /schistocytes --> abx and other meds have been reviewed --> ok for ppx if plt >50k w/ either heparin or lovenox --> plt trend: 135--> 150 --> Transfuse if Plt < 20k and fever, or if Plt < 10k without fever # Hyperproteinemia -- with elevated protein --> spep has been ordered # Anemia of kidney disease -- with esrd to see renal --> epo can consider as per renal # Acute Hypoxic respiratory Failure potentially due to Fluid Overload --> as per cards # ESRD on HD --> desating to low 80s high 70s on room air, requiring 4L ncl supplemental o2 --> fluid overloaded, patient has esrd on hd MWF, nephrology consulted, plan for HD soon --> cont to monitor closely, adjust o2 needs accordingly # Essential HTN --> resume home meds --> monitor closely # DMII --> iss --> accuchecks The timing of this note does not necessarily reflect the time of the patient was seen Greatly appreciate consultation! Subjective Constitutional: Denies: no symptoms, chills, diaphoresis, fever, malaise, weakness, other HEENT: Denies: no symptoms, eye pain, blurred vision, tearing, double vision, ear pain, ear discharge, nose pain, nose congestion, throat pain, throat swelling, mouth pain, mouth swelling, other Cardiovascular: Denies: no symptoms, chest pain, edema, irregular heart rate, lightheadedness, palpitations, syncope, other Respiratory: Denies: no symptoms, cough, orthopnea, shortness of breath, SOB with excertion, SOB at rest, sputum, stridor, wheezing, other Gastrointestinal/Abdominal: Denies: no symptoms, abdomen distended, abdominal pain, black stools, tarry stools, blood in stool, constipated, diarrhea, difficulty swallowing, nausea, poor appetite, poor fluid intake, rectal bleeding , vomiting, other Genitourinary: Denies: no symptoms, burning, discharge, frequency, flank pain, hematuria, incontinence, pain, urgency, other Neurologic/Psychiatric: Denies: no symptoms, anxiety, depressed, emotional problems, headache, numbness, paresthesia, pre-existing deficit, seizure, tingling, tremors, weakness, other Endocrine: Denies: no symptoms, excessive sweating, flushing, intolerance to cold, intolerance to heat, increased hunger, increased thirst, increased urine, unexplained weight gain, unexplained weight loss, other Allergies: Coded Allergies: PHENYTOIN (Verified Allergy, Unknown, 10/17/18) Uncoded Allergies: PENICILLIN (Allergy, Unknown, 10/17/18) Subjective 10/18: awake and comfortable, seen by bedside, HD tomorrow, +VRE rectum, plt 135. 10/19: Pt is seen by bedside, awake, comfortable, HD today, plt 150 10/20: awake and comfortable, no events, plt 150 Objective Last 24 Hour Vital Signs Date Time Temp Pulse Resp B/P (MAP) Pulse Ox O2 Delivery O2 Flow Rate FiO2 10/20/18 13:16 158/92 10/20/18 12:00 97.6 56 21 158/69 (98) 96 10/20/18 09:50 54 141/92 10/20/18 09:00 Nasal Cannula 3.0 10/20/18 08:00 97.0 54 21 141/92 (108) 93 10/20/18 00:00 115/73 10/19/18 21:00 Nasal Cannula 3.0 Intake and Output 10/19/18 10/20/18 19:00 07:00 Intake Total 120 ml 300 ml Balance 120 ml 300 ml Intake Oral 120 ml 300 ml # Voids 1 2 # Bowel Movements 1 1 Height (Feet): 5 Height (Inches): 4.00 Weight (Pounds): 123 Objective Physical Exam: General Appearance: A+O x3, NAD HEENT: normocephalic, atraumatic Neck: non-tender, normal alignment Respiratory/Chest: chest wall non-tender, lungs clear Cardiovascular/Chest: normal peripheral pulses, normal rate Abdomen: normal bowel sounds, non tender Extremities: normal range of motion Vadim Márquez MD Oct 20, 2018 19:58
--- NOTE | 2018-10-20 20:16 | NUR ---
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 @12:30pm: Gave report to SONG Toth at [facility]. Transport arrived at 1pm. When blood pressure was rechecked it 175 SBP. Scheduled blood pressure medication Hydralazine by mouth was given. After 45 minutes, the transporters states a Will Call and to call when blood pressure is lowered. @2:30pm Blood pressure was 145/85. Called dispatcher. Estimated arrival at 3:30pm @3:30: Transporters arrived and [facility] Patient had blue blanket and upper denture. All belongings of patient were sent to the SNF facility. Patient ID band was removed. Patient had no heart monitor on and no IV heplock. Patient left on stretcher to ambulance transport to [facility]. Patient left at 3:55pm.
--- NOTE | 2018-10-20 21:12 | General Progress Note ---
Assessment/Plan Problem List: (1) MDD (2) Anxiety disorder ICD Codes: F41.9 - Anxiety disorder, unspecified SNOMED: [id number] Assessment/Plan Cymbalta 30mg po qam the pt agrees to HD the pt has capacity to refuse HD The pt has capacity to leave AMA Subjective Neurologic/Psychiatric: Reports: anxiety, depressed Allergies: Coded Allergies: PHENYTOIN (Verified Allergy, Unknown, 10/17/18) Uncoded Allergies: PENICILLIN (Allergy, Unknown, 10/17/18) Subjective the pt agrees to do HD. Objective Last 24 Hour Vital Signs Date Time Temp Pulse Resp B/P (MAP) Pulse Ox O2 Delivery O2 Flow Rate FiO2 10/20/18 13:16 158/92 10/20/18 12:00 97.6 56 21 158/69 (98) 96 10/20/18 09:50 54 141/92 10/20/18 09:00 Nasal Cannula 3.0 10/20/18 08:00 97.0 54 21 141/92 (108) 93 10/20/18 00:00 115/73 Intake and Output 10/19/18 10/20/18 19:00 07:00 Intake Total 120 ml 300 ml Balance 120 ml 300 ml Intake Oral 120 ml 300 ml # Voids 1 2 # Bowel Movements 1 1 Height (Feet): 5 Height (Inches): 4.00 Weight (Pounds): 123 General Appearance: alert Neurologic: oriented x 3, responsive, depressed affect Francisco Patel MD Oct 20, 2018 21:12
--- NOTE | 2018-12-05 09:35 | History and Physical ---
History of Present Illness General Date patient seen: Dec 05, 2018 Reason for Hospitalization: Dyspnea/Respdistress Present Illness Allergies: Coded Allergies: PENICILLINS (Unverified Allergy, Mild, 12/05/18) PHENYTOIN (Verified Allergy, Unknown, 10/17/18) Uncoded Allergies: PENICILLIN (Allergy, Mild, 11/17/18) Medication History Scheduled Amlodipine Besylate* (Amlodipine Besylate*), 10 MG ORAL DAILY, (Reported) Aspirin Ec* (Aspirin Ec*), 81 MG ORAL DAILY, (Reported) Atenolol* (Tenormin*), 50 MG ORAL TWICE A DAY, (Reported) Docusate Sodium* (Docusate Sodium*), 200 MG ORAL DAILY, (Reported) Duloxetine (Cymbalta), 20 MG ORAL DAILY, (Reported) Levofloxacin* (Levaquin*), 250 MG ORAL DAILY Metronidazole* (Flagyl*), 500 MG ORAL EVERY 8 HOURS Pyridoxine Hcl* (Vitamin B-6*), 25 MG ORAL DAILY, (Reported) Sevelamer Carbonate* (Renvela*), 800 MG ORAL THREE TIMES A DAY, (Reported) Vitamin B Cmplx/Vit C/Folic AC (Nephro-Trent Tablet), 1 TAB ORAL DAILY, (Reported ) Scheduled PRN Hydrocodone Bit/Acetaminophen 5-325* ([facility]-325*), 1 TAB ORAL Q4H PRN for For Pain, (Reported) Tramadol Hcl* (Ultram*), 50 MG ORAL Q6H PRN for For Pain, (Reported) Miscellaneous Medications Insulin Lispro (Humalog), 0 SUBQ, (Reported) Linagliptin (Tradjenta), 5 MG PO, (Reported) Methoxy Peg-Epoetin Beta (Mircera), 100 MCG IJ, (Reported) [lipovitan], (Reported) Patient History Healthcare decision maker Resuscitation status Full Code Advanced Directive on File Physical Exam Height (Feet): 5 Height (Inches): 4.00 Weight (Pounds): 123 Frieda Miller MD Dec 05, 2018 09:35
== END 2018-10-20 15:59 | DRG 640 ==
LOC: EDBD 02:23 → EMR 02:59 → 2E 03:33 → EDBEDREQ 04:04
PROC: 5A1D70Z Performance of Urinary Filtration, Intermittent, Less than 6 Hours Per Day (ICD-10-PCS; principal; 2018-10-17)
DX: E87.70 Fluid overload, unspecified (principal); J96.01 Acute respiratory failure with hypoxia; L89.614 Pressure ulcer of right heel, stage 4; N18.6 End stage renal disease; I12.0 Hypertensive chronic kidney disease with stage 5 chronic kidney disease or end stage renal disease; Z89.512 Acquired absence of left leg below knee; Z99.2 Dependence on renal dialysis; Z88.0 Allergy status to penicillin; Z88.8 Allergy status to other drugs, medicaments and biological substances; E11.9 Type 2 diabetes mellitus without complications; Z79.4 Long term (current) use of insulin; Z91.15 Patient's noncompliance with renal dialysis; F41.9 Anxiety disorder, unspecified; I27.20 Pulmonary hypertension, unspecified; R00.1 Bradycardia, unspecified; D63.8 Anemia in other chronic diseases classified elsewhere; D69.6 Thrombocytopenia, unspecified; E88.09 Other disorders of plasma-protein metabolism, not elsewhere classified; F32.9 Major depressive disorder, single episode, unspecified
CPT/HCPCS: 36415; 71045; 76700; 80053; 80061; 82140; 82270; 82550; 82553; 82607; 82728; 82746; 82784; 82962; 82977; 83036; 83540; 83550; 83735; 83880; 84100; 84165; 84484; 84550; 85007; 85025; 85060; 86140; 86703; 86705; 86709; 86803; 87081; 87340; 93005; 96374; 99285; J1815

== ENCOUNTER 2018-11-15 21:21 | Inpatient (IN) | payer MEDICARE, OTHER ==
[~2018-11-15] VITALS: Ht 170.2 cm; Wt 56.9 kg
[~2018-11-15 21:21] MED LIST: AMLODIPINE BESY10 MG ORAL; ASPIRIN EC81 MG ORAL; ATENOLOL50 MG ORAL; CYMBALTA20 MG ORAL; DOCUSATE SODIU100 MG ORAL; HUMALOG100 UNIT/3 SUBQ; MIRCERA100 MCG/0. IJ; NEPHROVITE1 TAB ORAL; NORCO 5-325 TA1 EACH ORAL; PYRIDOXINE HCL50 MG ORAL; RENVELA0.8 GM ORAL; TRADJENTA5 MG PO; TRAMADOL HCL50 MG ORAL; [UNRECOGNIZED DRUG - OTHER]; [UNRECOGNIZED DRUG - OTHER]
[2018-11-15 22:00] VITALS: BP 140/65
[2018-11-15] MEDS ORDERED: Albuterol ud Inhalation HHN ONE (22:00)
[2018-11-15] MEDS ORDERED: Solu-MEDROL 125mg Inj IVP ONE (22:00)
[2018-11-15] MEDS ORDERED: Ipratropium 0.02% Inh Soln 2.5ml UD HHN ONE (22:00)
--- NOTE | 2018-11-15 22:00 | NUR ---
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 SPO2 60% at SNF. Currently 100% on nonrebreather. AO4. NAD. Denies SOB. Fistula on right arm noted. HD on MWF. Attached to monitor. VSS.
[2018-11-15 22:02] LABS: HEMATOCRIT 35.8 % (42.0-52.0); HEMOGLOBIN 11.3 G/DL (14.2-18.0); MEAN CORPUSCULAR VOLUME 107 FL (80-99); PLATELET COUNT 212 K/UL (150-450); RED BLOOD COUNT 3.35 M/UL (4.70-6.10); RED CELL DISTRIBUTION WIDTH 15.6 % (11.6-14.8)
[2018-11-15 22:04] LABS: WHITE BLOOD COUNT 25.1 K/UL (4.8-10.8)
[2018-11-15 22:24] LABS: ANION GAP 7 mmol/L (5-15); BLOOD UREA NITROGEN 37 mg/dL (7-18); CALCIUM 8.9 MG/DL (8.5-10.1); CARBON DIOXIDE 27 MMOL/L (21-32); CHLORIDE 98 MMOL/L (98-107); CREATININE 3.7 MG/DL (0.55-1.30); POTASSIUM 5.1 MMOL/L (3.5-5.1); SODIUM 132 MMOL/L (136-145)
[2018-11-15 22:40] LABS: ALANINE AMINOTRANSFERASE 15 U/L (12-78); ALBUMIN 2.5 G/DL (3.4-5.0); ALBUMIN/GLOBULIN RATIO 0.4 (1.0-2.7); ALKALINE PHOSPHATASE 257 U/L (46-116); ASPARTATE AMINO TRANSFERASE 24 U/L (15-37); BILIRUBIN,TOTAL 1.2 MG/DL (0.2-1.0); CKMB 0.9 NG/ML (0.0-3.6); CREATINE KINASE 30 U/L (26-308)
[2018-11-15 22:41] LABS: BILIRUBIN,DIRECT 0.9 MG/DL (0.0-0.3)
[2018-11-15 23:00] VITALS: BP 126/72
[2018-11-16] VITALS (7 sets, daily range): BP systolic 110–118; BP diastolic 41–73
--- NOTE | 2018-11-16 | NUR ---
ED Nurse Note: Offered to transfer pt from [facility] to bed. Patient refused.
--- NOTE | 2018-11-16 01:30 | NUR ---
ED Nurse Note: Patient refused to be transferred to hospital bed. Patient states "I want to go home. I can breathe fine. I don't want to be here." Pt refusing all care.
--- NOTE | 2018-11-16 01:50 | Emergency Room Report ---
History of Present Illness General Chief Complaint: Dyspnea/Respdistress Source: Patient, Medical Record, EMS Present Illness HPI 68-year-old male presents ED for evaluation. Brought in by EMS for shortness of breath. Started tonight. O2 sats low at the assisted facility. Started on nonrebreather. Upon arrival patient is feeling a little better. Denies chest pain. Denies fevers or chills. Denies cough. History of end- stage renal disease on dialysis. Denies leg swelling. No other aggravating relieving factors. Denies any other associated symptoms Allergies: Coded Allergies: PHENYTOIN (Verified Allergy, Unknown, 10/17/18) Uncoded Allergies: PENICILLIN (Allergy, Unknown, 10/17/18) Patient History Past Medical History: CHF, COPD, renal disease, dialysis Past Surgical History: other - amputation Pertinent Family History: none Social History: Denies: smoking, alcohol use, drug use Immunizations: UTD Reviewed Nursing Documentation: PMH: Agreed; PSxH: Agreed Nursing Documentation-PMH Hx Hypertension: Yes Hx COPD: Yes Hx Diabetes: Yes Hx Cancer: No Hx Gastrointestinal Problems: No Hx Dialysis: Yes - Renal failure Hx Neurological Problems: Yes - aka amputation left leg, muscle weakness Hx Cerebrovascular Accident: Yes - CHF Review of Systems All Other Systems: negative except mentioned in HPI Physical Exam Vital Signs Date Time Temp Pulse Resp B/P (MAP) Pulse Ox O2 Delivery O2 Flow Rate FiO2 11/15/18 21:16 99.1 65 22 140/65 100 Non-Rebreather Sp02 EP Interpretation: reviewed, normal General Appearance: no apparent distress, alert, GCS 15, non-toxic Head: normocephalic Eyes: bilateral eye normal inspection, bilateral eye PERRL ENT: hearing grossly normal, normal pharynx, no angioedema, normal voice Neck: full range of motion, supple/symm/no masses Respiratory: chest non-tender, lungs clear, speaking full sentences, wheezing Cardiovascular #1: regular rate, rhythm, no edema Gastrointestinal: normal bowel sounds, non tender, soft, non-distended, no guarding, no rebound Rectal: deferred Genitourinary: no CVA tenderness Musculoskeletal: back normal Neurologic: alert, oriented x3, responsive, motor strength/tone normal, sensory intact, speech normal Psychiatric: normal inspection Skin: normal inspection Lymphatic: normal inspection Medical Decision Making Diagnostic Impression: Primary Impression: CHF (congestive heart failure) Qualified Codes: I50.9 - Heart failure, unspecified Additional Impressions: COPD (chronic obstructive pulmonary disease) Qualified Codes: J44.9 - Chronic obstructive pulmonary disease, unspecified Dyspnea Qualified Codes: R06.00 - Dyspnea, unspecified ESRD (end stage renal disease) on dialysis ER Course Hospital Course 68-year-old male presents ED complaining of shortness of breath, low O2 sat at SNF Differential diagnoses include: WI/unstable angina, contusion, muscle strain, PTX, rib fracture Clinical course Patient placed on stretcher. on gambling monitor. After initial history and physical I ordered labs, EKG, chest x-ray, breathing treatments labs reviewed- marked leukocytosis, hemoglobin/hematocrit stable, BUN/ creatinine elevated, troponins negative, BNP elevated EKG - NSR, no acute ischemic changes interpreted by me Chest x-ray- cardiomegaly, ?R sided infiltrate Antibiotics given. Case discussed with Dr. Cat and he agreed to accept the patient to his service for further care and support I. I feel this is a highly complex case requiring extensive working including EKG/Rhythm strip, Xray/CT/US, Blood/urine lab work, repeat exams while in ED, and administration of strong opiates/narcotics for pain control, admission to hospital or close patient follow up. Diagnosis - CHF exacerbation, COPD, dyspnea, ESRD on dialysis admitted to telemetry in serious condition Labs Test 11/15/18 21:30 White Blood Count 25.1 K/UL (4.8-10.8) Red Blood Count 3.35 M/UL (4.70-6.10) Hemoglobin 11.3 G/DL (14.2-18.0) Hematocrit 35.8 % (42.0-52.0) Mean Corpuscular Volume 107 FL (80-99) Mean Corpuscular Hemoglobin 33.6 PG (27.0-31.0) Mean Corpuscular Hemoglobin Concent 31.5 G/DL (32.0-36.0) Red Cell Distribution Width 15.6 % (11.6-14.8) Platelet Count 212 K/UL (150-450) Mean Platelet Volume 8.6 FL (6.5-10.1) Neutrophils (%) (Auto) % (45.0-75.0) Lymphocytes (%) (Auto) % (20.0-45.0) Monocytes (%) (Auto) % (1.0-10.0) Eosinophils (%) (Auto) % (0.0-3.0) Basophils (%) (Auto) % (0.0-2.0) Differential Total Cells Counted 100 Neutrophils % (Manual) 94 % (45-75) Lymphocytes % (Manual) 1 % (20-45) Monocytes % (Manual) 4 % (1-10) Eosinophils % (Manual) 0 % (0-3) Basophils % (Manual) 0 % (0-2) Band Neutrophils 1 % (0-8) Platelet Estimate Adequate Platelet Morphology Normal Polychromasia 1+ Hypochromasia 1+ Anisocytosis 1+ Macrocytosis 2+ Sodium Level 132 MMOL/L (136-145) Potassium Level 5.1 MMOL/L (3.5-5.1) Chloride Level 98 MMOL/L (98-107) Carbon Dioxide Level 27 MMOL/L (21-32) Anion Gap 7 mmol/L (5-15) Blood Urea Nitrogen 37 mg/dL (7-18) Creatinine 3.7 MG/DL (0.55-1.30) Estimat Glomerular Filtration Rate 16.5 mL/min (>60) Glucose Level 128 MG/DL (74-106) Lactic Acid Level 1.10 mmol/L (0.4-2.0) Calcium Level 8.9 MG/DL (8.5-10.1) Total Bilirubin 1.2 MG/DL (0.2-1.0) Direct Bilirubin 0.9 MG/DL (0.0-0.3) Aspartate Amino Transf (AST/SGOT) 24 U/L (15-37) Alanine Aminotransferase (ALT/SGPT) 15 U/L (12-78) Alkaline Phosphatase 257 U/L (46-116) Total Creatine Kinase 30 U/L (26-308) Creatine Kinase MB 0.9 NG/ML (0.0-3.6) Creatine Kinase MB Relative Index 3.0 Troponin I 0.044 ng/mL (0.000-0.056) Pro-B-Type Natriuretic Peptide > 95317 pg/mL (0-125) Total Protein 9.2 G/DL (6.4-8.2) Albumin 2.5 G/DL (3.4-5.0) Globulin 6.7 g/dL Albumin/Globulin Ratio 0.4 (1.0-2.7) EKG Diagnostic Results Rate: normal Rhythm: NSR ST Segments: no acute changes ASA given to the pt in ED: No Rhythm Strip Diag. Results EP Interpretation: yes Rhythm: NSR, no PVC's, no ectopy Chest X-Ray Diagnostic Results Chest X-Ray Diagnostic Results : Chest X-Ray Ordered: Yes # of Views/Limited/Complete: 1 View Indication: Shortness of Breath EP Interpretation: Yes Interpretation: no pneumothorax, other - R sided infiltrate. cardiomegaly Impression: Other - chf/pneumonia Electronically Signed by: Electronically signed by Juan Luis Pratt MD Last Vital Signs Date Time Temp Pulse Resp B/P (MAP) Pulse Ox O2 Delivery O2 Flow Rate FiO2 11/15/18 22:38 63 20 99 Room Air 11/15/18 22:00 98.9 140/65 Status: improved Disposition: ADMITTED INPATIENT Condition: Serious Referrals: Pam Andrade MD (PCP) Juan Luis Pratt MD Nov 16, 2018 01:50
--- NOTE | 2018-11-16 02:30 | NUR ---
ED Nurse Note: Received admitting order from MD Alfonso. Noted and carried out.
--- NOTE | 2018-11-16 04:18 | NUR ---
ED Nurse Note: AM blood collected; sent down to lab.
--- NOTE | 2018-11-16 04:20 | NUR ---
ED Nurse Note: Attempted to collect urine. Patient unable to urinate; refuse to be straight cath. ERMD made aware.
--- NOTE | 2018-11-16 05:00 | NUR ---
ED Nurse Note: leora am labs; walked down to lab and delivered to CLS
[2018-11-16 05:27] LABS: HEMATOCRIT 36.2 % (42.0-52.0); HEMOGLOBIN 11.4 G/DL (14.2-18.0); MEAN CORPUSCULAR VOLUME 105 FL (80-99); PLATELET COUNT 247 K/UL (150-450); RED BLOOD COUNT 3.46 M/UL (4.70-6.10); WHITE BLOOD COUNT 21.1 K/UL (4.8-10.8)
--- NOTE | 2018-11-16 06:00 | NUR ---
ED Nurse Note: Notified RT for pt breathing treatment.
[2018-11-16 06:06] LABS: ANION GAP 11 mmol/L (5-15); BLOOD UREA NITROGEN 36 mg/dL (7-18); CALCIUM 6.8 MG/DL (8.5-10.1); CARBON DIOXIDE 21 MMOL/L (21-32); CHLORIDE 107 MMOL/L (98-107); CREATININE 2.9 MG/DL (0.55-1.30); POTASSIUM 3.8 MMOL/L (3.5-5.1); SODIUM 139 MMOL/L (136-145)
[2018-11-16] MEDS ORDERED: NovoLOG Insulin Flexpen SUBQ SCH (06:30)
--- NOTE | 2018-11-16 06:30 | NUR ---
ED Nurse Note: Patient refused insulin. Blood glucose 194; ERMD aware. Patient states "I want to go home. There is nothing for me here."
--- NOTE | 2018-11-16 07:00 | NUR ---
ED Nurse Note: received pt. on bed. Pt. does not want to stay in the hospital. Pt. finished his breakfast tray.
--- NOTE | 2018-11-16 07:34 | History and Physical ---
History of Present Illness General Date patient seen: Nov 16, 2018 Time patient seen: 07:30 Reason for Hospitalization: Dyspnea/Respdistress Present Illness HPI 68 year old male brought from SNF with complains of dyspnea. hx copd, chf, ckd on dialysis. found to have possible infiltrate and high WBC. admitted to hospital. Patient states this morning that he is doing ok and wants to be discharged back to SNF. states has no family. denies any complaints. talked about why r u here/ does not give any answer. refuses medications. patient recently discharged after CHF and was seen by psych also. does not know his meds. reviewed SNF NOV. later agrees for insulin. adv that needs dialysis and SNF does not accept back without treatment. no more history elicitable from patient. Allergies: Coded Allergies: PHENYTOIN (Verified Allergy, Unknown, 10/17/18) Uncoded Allergies: PENICILLIN (Allergy, Unknown, 10/17/18) Medication History Scheduled Amlodipine Besylate* (Amlodipine Besylate*), 10 MG ORAL DAILY, (Reported) Aspirin Ec* (Aspirin Ec*), 81 MG ORAL DAILY, (Reported) Atenolol* (Tenormin*), 50 MG ORAL TWICE A DAY, (Reported) Docusate Sodium* (Docusate Sodium*), 200 MG ORAL DAILY, (Reported) Duloxetine (Cymbalta), 20 MG ORAL DAILY, (Reported) Pyridoxine Hcl* (Vitamin B-6*), 25 MG ORAL DAILY, (Reported) Sevelamer Carbonate* (Renvela*), 800 MG ORAL THREE TIMES A DAY, (Reported) Vitamin B Cmplx/Vit C/Folic AC (Nephro-Trent Tablet), 1 TAB ORAL DAILY, (Reported ) Scheduled PRN Hydrocodone Bit/Acetaminophen 5-325* ([place] 5-325*), 1 TAB ORAL Q4H PRN for For Pain, (Reported) Tramadol Hcl* (Ultram*), 50 MG ORAL Q6H PRN for For Pain, (Reported) Miscellaneous Medications Insulin Lispro (Humalog), 0 SUBQ, (Reported) Linagliptin (Tradjenta), 5 MG PO, (Reported) Methoxy Peg-Epoetin Beta (Mircera), 100 MCG IJ, (Reported) [lipovitan], (Reported) [voncomycin ivpb], (Reported) Patient History Limited by: medical condition, other History Provided By: Patient, Medical Record Healthcare decision maker Resuscitation status Advanced Directive on File No Past Medical/Surgical History Past Medical/Surgical History: (1) ESRD (end stage renal disease) on dialysis (2) CHF (congestive heart failure) (3) COPD (chronic obstructive pulmonary disease) (4) MDD (5) Decubitus ulcer of right heel, stage 4 (6) Anxiety disorder (7) Anemia (8) Pleural effusion (9) Hx of BKA Review of Systems Constitutional: Denies: see HPI Respiratory: Denies: shortness of breath Psychiatric: Reports: emotional problems ROS Narrative patient refuses to talk more and wants to be discharged. could not tell conswquences. discussed with Psyciatry and requested consult. no more history could be obtained. 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 has Right arm AV access. Left BKA Right foot with dressing over heal Last 24 Hour Vital Signs Date Time Temp Pulse Resp B/P (MAP) Pulse Ox O2 Delivery O2 Flow Rate FiO2 11/16/18 05:59 98.6 60 20 113/73 100 Nasal Cannula 2.0 11/16/18 04:29 Nasal Cannula 2.0 11/16/18 04:22 Nasal Cannula 2.0 11/16/18 04:00 98.6 96 20 117/61 100 Nasal Cannula 2.0 11/16/18 00:00 98.6 96 20 118/68 100 Nasal Cannula 2.0 11/15/18 23:00 98.9 84 20 126/72 100 Nasal Cannula 2.0 11/15/18 22:38 63 20 99 Room Air 11/15/18 22:08 61 22 Non-Rebreather 11/15/18 22:08 61 22 99 Non-Rebreather 11/15/18 22:00 98.9 65 22 140/65 100 Non-Rebreather 11/15/18 22:00 65 22 Non-Rebreather 11/15/18 21:51 99.1 65 22 140/65 100 Non-Rebreather 11/15/18 21:50 99.1 65 22 140/65 100 Non-Rebreather 11/15/18 21:16 99.1 65 22 140/65 100 Non-Rebreather Intake and Output 11/15/18 11/16/18 18:59 06:59 Intake Total 100 ml Balance 100 ml Intake Oral 0 ml IV Total 100 ml # Bowel Movements 3 Laboratory Tests Test 11/15/18 21:30 11/16/18 05:15 11/16/18 05:40 White Blood Count 25.1 K/UL (4.8-10.8) *H 21.1 K/UL (4.8-10.8) H Red Blood Count 3.35 M/UL (4.70-6.10) L 3.46 M/UL (4.70-6.10) L Hemoglobin 11.3 G/DL (14.2-18.0) L 11.4 G/DL (14.2-18.0) L Hematocrit 35.8 % (42.0-52.0) L 36.2 % (42.0-52.0) L Mean Corpuscular Volume 107 FL (80-99) H 105 FL (80-99) H Mean Corpuscular Hemoglobin 33.6 PG (27.0-31.0) H 33.0 PG (27.0-31.0) H Mean Corpuscular Hemoglobin Concent 31.5 G/DL (32.0-36.0) L 31.5 G/DL (32.0-36.0) L Red Cell Distribution Width 15.6 % (11.6-14.8) H 16.0 % (11.6-14.8) H Platelet Count 212 K/UL (150-450) 247 K/UL (150-450) Mean Platelet Volume 8.6 FL (6.5-10.1) 9.2 FL (6.5-10.1) Neutrophils (%) (Auto) % (45.0-75.0) % (45.0-75.0) Lymphocytes (%) (Auto) % (20.0-45.0) % (20.0-45.0) Monocytes (%) (Auto) % (1.0-10.0) % (1.0-10.0) Eosinophils (%) (Auto) % (0.0-3.0) % (0.0-3.0) Basophils (%) (Auto) % (0.0-2.0) % (0.0-2.0) Differential Total Cells Counted 100 Neutrophils % (Manual) 94 % (45-75) H Pending Lymphocytes % (Manual) 1 % (20-45) L Pending Monocytes % (Manual) 4 % (1-10) Eosinophils % (Manual) 0 % (0-3) Basophils % (Manual) 0 % (0-2) Band Neutrophils 1 % (0-8) Platelet Estimate Adequate Pending Platelet Morphology Normal Pending Polychromasia 1+ Hypochromasia 1+ Anisocytosis 1+ Macrocytosis 2+ Sodium Level 132 MMOL/L (136-145) L 139 MMOL/L (136-145) Potassium Level 5.1 MMOL/L (3.5-5.1) 3.8 MMOL/L (3.5-5.1) Chloride Level 98 MMOL/L (98-107) 107 MMOL/L (98-107) Carbon Dioxide Level 27 MMOL/L (21-32) 21 MMOL/L (21-32) Anion Gap 7 mmol/L (5-15) 11 mmol/L (5-15) Blood Urea Nitrogen 37 mg/dL (7-18) H 36 mg/dL (7-18) H Creatinine 3.7 MG/DL (0.55-1.30) H 2.9 MG/DL (0.55-1.30) H Estimat Glomerular Filtration Rate 16.5 mL/min (>60) 21.9 mL/min (>60) Glucose Level 128 MG/DL (74-106) H 179 MG/DL (74-106) H Lactic Acid Level 1.10 mmol/L (0.4-2.0) Calcium Level 8.9 MG/DL (8.5-10.1) 6.8 MG/DL (8.5-10.1) #L Total Bilirubin 1.2 MG/DL (0.2-1.0) H Direct Bilirubin 0.9 MG/DL (0.0-0.3) H Aspartate Amino Transf (AST/SGOT) 24 U/L (15-37) Alanine Aminotransferase (ALT/SGPT) 15 U/L (12-78) Alkaline Phosphatase 257 U/L (46-116) H Total Creatine Kinase 30 U/L (26-308) Creatine Kinase MB 0.9 NG/ML (0.0-3.6) Creatine Kinase MB Relative Index 3.0 Troponin I 0.044 ng/mL (0.000-0.056) Pro-B-Type Natriuretic Peptide > 97636 pg/mL (0-125) H Total Protein 9.2 G/DL (6.4-8.2) H Albumin 2.5 G/DL (3.4-5.0) L Globulin 6.7 g/dL Albumin/Globulin Ratio 0.4 (1.0-2.7) L Microbiology Date/Time Source Procedure Growth Status 11/15/18 22:50 Nasal Nares Influenza Types A,B Antigen (SUHAIL) - Final Complete Height (Feet): 5 Height (Inches): 7.00 Weight (Pounds): 160 Medications Current Medications Medications (Trade) Dose Ordered Sig/Ronald Route PRN Reason Start Time Stop Time Status Last Admin Dose Admin Albuterol Sulfate (Proventil) 2.5 mg Q6HR N 11/16/18 06:00 11/21/18 05:59 Dextrose (Dextrose 50%) 25 ml Q30M PRN IV Hypoglycemia 11/16/18 02:15 12/16/18 02:14 Insulin Aspart (NovoLOG) BEFORE MEALS AND HS SUBQ 11/16/18 06:30 12/16/18 06:29 Ipratropium [place] (Atrovent) 0.5 mcg Q6HR N 11/16/18 06:00 11/21/18 05:59 Levofloxacin 150 ml @ 100 mls/hr EVERY OTHER DAY IVPB 11/17/18 23:00 11/24/18 22:59 Assessment/Plan Assessment/Plan 1. Dyspnea likely due to Pneumonia with high WBC 2. chf 3. CKD on dialysis 4. Delirium Plan: admit to hospital. Continue treatment for Pneumonia with Levaquin. add vancomycin with hx mrsa/ line fistula presence. Nephrology consult for dialysis. Psych consult for delirium/refusing for rx and has no idea of consequence if leaves AMA. Consider ID consult continue home meds available. SSI Heparin for DVT Code Full Mahad Hamilton MD Nov 16, 2018 07:34
[2018-11-16] MEDS ORDERED: Albuterol ud Inhalation ONE (08:06)
[2018-11-16] MEDS ORDERED: Ipratropium 0.02% Inh Soln 2.5ml UD ONE (08:07)
--- NOTE | 2018-11-16 08:10 | NUR ---
ED Nurse Note: Dr. Garcia came to see the pt. and notified about the accucheck of 245. Pt. refused to received insulin
--- NOTE | 2018-11-16 08:13 | NUR ---
ED Nurse Note: RT at the bedside
[2018-11-16] MEDS: Ipratropium 0.02% Inh Soln 2.5ml UD HHN SCH ×3 (08:26→17:30)
[2018-11-16] MEDS: Albuterol ud Inhalation HHN SCH ×3 (08:26→17:30)
[2018-11-16] MEDS ORDERED: Vancomycin 1.5gm/D5W 275ml IVPB ONE (09:00)
--- NOTE | 2018-11-16 09:11 | NUR ---
NURSE NOTES: Received report from SONG Basilio from ED.
--- NOTE | 2018-11-16 09:43 | NUR ---
NURSE NOTES: Patient is on the tele floor. But Patient refuses to transfer to tele hospital bed. And patient wants to leave with AMA.
--- NOTE | 2018-11-16 10:01 | NUR ---
ED Nurse Note: Pt. was notified that he will be transferred into a different room. Pt. was excited and thankful but when pt. arrived into the room. Pt. did not want to be transferred to a hospital bed. House sup came to see the pt. and gave explanation to the pt.
--- NOTE | 2018-11-16 10:02 | NUR ---
NURSE NOTES: Patient is transferred to Hospital bed from ED [facility]. Patient refuses coiler and assessment. Will continue plan of care.
--- NOTE | 2018-11-16 10:19 | Consultation ---
Consult Note Consult Note asked to eval for dialysis management 68-year-old male presents ED for evaluation. Brought in by EMS for shortness of breath. Started tonight. O2 sats low at the assisted facility. Started on nonrebreather. Upon arrival patient is feeling a little better. Denies chest pain. Denies fevers or chills. Denies cough. History of end- stage renal disease on dialysis. Denies leg swelling. No other aggravating relieving factors. Denies any other associated symptoms Allergies: Coded Allergies: PHENYTOIN (Verified Allergy, Unknown, 10/17/18) Uncoded Allergies: PENICILLIN (Allergy, Unknown, 10/17/18) Past Medical History: CHF, COPD, renal disease, dialysis Hx Hypertension: Yes Hx COPD: Yes Hx Diabetes: Yes Hx Dialysis: Yes - Renal failure Hx Neurological Problems: Yes - aka amputation left leg, muscle weakness Hx Cerebrovascular Accident: Yes - CHF examined- data reviewed discussed with synthetic staple extruder/Plan (1) ESRD (end stage renal disease) right arm fistula (2) Fluid overload, unspecified (3) Bradycardia (4) Anemia (5) Pleural effusion refuses care and meds ! HD and UF refused 11/16 HD 11/17 scheduled adjust BP meds 2D Echo stop beta blockers on hydralazin and procardia per consultants Alessandro Price MD Nov 16, 2018 10:19
--- NOTE | 2018-11-16 10:24 | Consultation ---
History of Present Illness General Chief Complaint: Dyspnea/Respdistress Present Illness HPI 68 yo male with hx of mmp, depression and possibly schizophrenia. the pt has depressed mood, anxiety and is illogical the pt is uncooperative. he is unable to understand, process, appreciate or communicate in a rational manner. the pt was incoherent and stated that he wanted to leave. the pt was agitated and yelling in ED Allergies: Coded Allergies: PHENYTOIN (Verified Allergy, Unknown, 10/17/18) Uncoded Allergies: PENICILLIN (Allergy, Unknown, 10/17/18) Medication History Scheduled Amlodipine Besylate* (Amlodipine Besylate*), 10 MG ORAL DAILY, (Reported) Aspirin Ec* (Aspirin Ec*), 81 MG ORAL DAILY, (Reported) Atenolol* (Tenormin*), 50 MG ORAL TWICE A DAY, (Reported) Docusate Sodium* (Docusate Sodium*), 200 MG ORAL DAILY, (Reported) Duloxetine (Cymbalta), 20 MG ORAL DAILY, (Reported) Pyridoxine Hcl* (Vitamin B-6*), 25 MG ORAL DAILY, (Reported) Sevelamer Carbonate* (Renvela*), 800 MG ORAL THREE TIMES A DAY, (Reported) Vitamin B Cmplx/Vit C/Folic AC (Nephro-Trent Tablet), 1 TAB ORAL DAILY, (Reported ) Scheduled PRN Hydrocodone Bit/Acetaminophen 5-325* ([place] 5-325*), 1 TAB ORAL Q4H PRN for For Pain, (Reported) Tramadol Hcl* (Ultram*), 50 MG ORAL Q6H PRN for For Pain, (Reported) Miscellaneous Medications Insulin Lispro (Humalog), 0 SUBQ, (Reported) Linagliptin (Tradjenta), 5 MG PO, (Reported) Methoxy Peg-Epoetin Beta (Mircera), 100 MCG IJ, (Reported) [lipovitan], (Reported) [voncomycin ivpb], (Reported) Patient History Limited by: medical condition History Provided By: Medical Record, PMD Healthcare decision maker Resuscitation status Advanced Directive on File No Past Medical/Surgical History Past Medical/Surgical History: (1) Bradycardia (2) Dyspnea (3) ESRD (end stage renal disease) on dialysis (4) CHF (congestive heart failure) (5) COPD (chronic obstructive pulmonary disease) (6) Anemia (7) Anxiety disorder (8) Pleural effusion (9) Decubitus ulcer of right heel, stage 4 (10) MDD Review of Systems Psychiatric: Reports: prior hx, anxiety, depressed feelings, emotional problems Physical Exam General Appearance: alert, confused, severe distress, agitated Neurologic: disoriented, depressed affect Last 24 Hour Vital Signs Date Time Temp Pulse Resp B/P (MAP) Pulse Ox O2 Delivery O2 Flow Rate FiO2 11/16/18 10:01 98.6 58 20 118/43 100 Nasal Cannula 2.0 11/16/18 08:25 58 20 100 Nasal Cannula 2.0 11/16/18 08:17 58 17 Nasal Cannula 2.0 11/16/18 08:17 58 17 94 Nasal Cannula 2.0 11/16/18 08:12 98.6 58 20 118/43 100 Nasal Cannula 2.0 11/16/18 05:59 98.6 60 20 113/73 100 Nasal Cannula 2.0 11/16/18 04:29 Nasal Cannula 2.0 11/16/18 04:22 Nasal Cannula 2.0 11/16/18 04:00 98.6 96 20 117/61 100 Nasal Cannula 2.0 11/16/18 00:00 98.6 96 20 118/68 100 Nasal Cannula 2.0 11/15/18 23:00 98.9 84 20 126/72 100 Nasal Cannula 2.0 11/15/18 22:38 63 20 99 Room Air 11/15/18 22:08 61 22 Non-Rebreather 11/15/18 22:08 61 22 99 Non-Rebreather 11/15/18 22:00 98.9 65 22 140/65 100 Non-Rebreather 11/15/18 22:00 65 22 Non-Rebreather 11/15/18 21:51 99.1 65 22 140/65 100 Non-Rebreather 11/15/18 21:50 99.1 65 22 140/65 100 Non-Rebreather 11/15/18 21:16 99.1 65 22 140/65 100 Non-Rebreather Intake and Output 11/15/18 11/16/18 19:00 07:00 Intake Total 100 ml Balance 100 ml Intake Oral 0 ml IV Total 100 ml # Bowel Movements 3 Laboratory Tests Test 11/15/18 21:30 11/16/18 05:15 11/16/18 05:40 White Blood Count 25.1 K/UL (4.8-10.8) *H 21.1 K/UL (4.8-10.8) H Red Blood Count 3.35 M/UL (4.70-6.10) L 3.46 M/UL (4.70-6.10) L Hemoglobin 11.3 G/DL (14.2-18.0) L 11.4 G/DL (14.2-18.0) L Hematocrit 35.8 % (42.0-52.0) L 36.2 % (42.0-52.0) L Mean Corpuscular Volume 107 FL (80-99) H 105 FL (80-99) H Mean Corpuscular Hemoglobin 33.6 PG (27.0-31.0) H 33.0 PG (27.0-31.0) H Mean Corpuscular Hemoglobin Concent 31.5 G/DL (32.0-36.0) L 31.5 G/DL (32.0-36.0) L Red Cell Distribution Width 15.6 % (11.6-14.8) H 16.0 % (11.6-14.8) H Platelet Count 212 K/UL (150-450) 247 K/UL (150-450) Mean Platelet Volume 8.6 FL (6.5-10.1) 9.2 FL (6.5-10.1) Neutrophils (%) (Auto) % (45.0-75.0) % (45.0-75.0) Lymphocytes (%) (Auto) % (20.0-45.0) % (20.0-45.0) Monocytes (%) (Auto) % (1.0-10.0) % (1.0-10.0) Eosinophils (%) (Auto) % (0.0-3.0) % (0.0-3.0) Basophils (%) (Auto) % (0.0-2.0) % (0.0-2.0) Differential Total Cells Counted 100 100 Neutrophils % (Manual) 94 % (45-75) H 94 % (45-75) H Lymphocytes % (Manual) 1 % (20-45) L 1 % (20-45) L Monocytes % (Manual) 4 % (1-10) 1 % (1-10) Eosinophils % (Manual) 0 % (0-3) 1 % (0-3) Basophils % (Manual) 0 % (0-2) 0 % (0-2) Band Neutrophils 1 % (0-8) 3 % (0-8) Platelet Estimate Adequate Adequate Platelet Morphology Normal Normal Polychromasia 1+ Hypochromasia 1+ 1+ Anisocytosis 1+ 1+ Macrocytosis 2+ 1+ Sodium Level 132 MMOL/L (136-145) L 139 MMOL/L (136-145) Potassium Level 5.1 MMOL/L (3.5-5.1) 3.8 MMOL/L (3.5-5.1) Chloride Level 98 MMOL/L (98-107) 107 MMOL/L (98-107) Carbon Dioxide Level 27 MMOL/L (21-32) 21 MMOL/L (21-32) Anion Gap 7 mmol/L (5-15) 11 mmol/L (5-15) Blood Urea Nitrogen 37 mg/dL (7-18) H 36 mg/dL (7-18) H Creatinine 3.7 MG/DL (0.55-1.30) H 2.9 MG/DL (0.55-1.30) H Estimat Glomerular Filtration Rate 16.5 mL/min (>60) 21.9 mL/min (>60) Glucose Level 128 MG/DL (74-106) H 179 MG/DL (74-106) H Lactic Acid Level 1.10 mmol/L (0.4-2.0) Calcium Level 8.9 MG/DL (8.5-10.1) 6.8 MG/DL (8.5-10.1) #L Total Bilirubin 1.2 MG/DL (0.2-1.0) H Direct Bilirubin 0.9 MG/DL (0.0-0.3) H Aspartate Amino Transf (AST/SGOT) 24 U/L (15-37) Alanine Aminotransferase (ALT/SGPT) 15 U/L (12-78) Alkaline Phosphatase 257 U/L (46-116) H Total Creatine Kinase 30 U/L (26-308) Creatine Kinase MB 0.9 NG/ML (0.0-3.6) Creatine Kinase MB Relative Index 3.0 Troponin I 0.044 ng/mL (0.000-0.056) Pro-B-Type Natriuretic Peptide > 12418 pg/mL (0-125) H Total Protein 9.2 G/DL (6.4-8.2) H Albumin 2.5 G/DL (3.4-5.0) L Globulin 6.7 g/dL Albumin/Globulin Ratio 0.4 (1.0-2.7) L Hemoglobin A1c 5.2 % (4.3-6.0) Microbiology Date/Time Source Procedure Growth Status 11/15/18 22:50 Nasal Nares Influenza Types A,B Antigen (SUHAIL) - Final Complete Height (Feet): 5 Height (Inches): 7.00 Weight (Pounds): 160 Medications Current Medications Medications (Trade) Dose Ordered Sig/Ronald Route PRN Reason Start Time Stop Time Status Last Admin Dose Admin Albuterol Sulfate (Proventil) 2.5 mg Q6HR N 11/16/18 06:00 11/21/18 05:59 11/16/18 08:26 Dextrose (Dextrose 50%) 25 ml Q30M PRN IV Hypoglycemia 11/16/18 08:15 12/16/18 08:14 Dextrose (Dextrose 50%) 50 ml Q30M PRN IV Hypoglycemia 11/16/18 08:15 12/16/18 08:14 Insulin Aspart (NovoLOG) BEFORE MEALS AND HS SUBQ 11/16/18 11:30 12/16/18 11:29 Ipratropium [place] (Atrovent) 0.5 mcg Q6HR HHN 11/16/18 06:00 11/21/18 05:59 11/16/18 08:26 Levofloxacin 150 ml @ 100 mls/hr EVERY OTHER DAY IVPB 11/17/18 23:00 11/24/18 22:59 Vancomycin HCl (Vanco rx to dose) 1 ea DAILY PRN MISC Per rx protocol 11/16/18 08:15 12/16/18 08:14 Vancomycin HCl/ Dextrose 275 ml @ 137.5 mls/ hr ONCE ONCE IVPB 11/16/18 09:00 11/16/18 10:59 11/16/18 09:15 Assessment/Plan Problem List: (1) Acute metabolic encephalopathy ICD Codes: G93.41 - Metabolic encephalopathy SNOMED: 72539958, 243266600 (2) MDD (3) Anxiety disorder ICD Codes: F41.9 - Anxiety disorder, unspecified SNOMED: 004655688 Status: unchanged Assessment/Plan the pt lacks capacity sedate the pt and HD if urgent spoke to pmd and rn cont Cymbalta 20mg po qam the pt may not leave [facility] the pt received a cocktail Francisco Patel MD Nov 16, 2018 10:24
[2018-11-16] MEDS ORDERED: DiphenhydrAMINE 50mg/ml Inj IM PRN (10:30)
[2018-11-16] MEDS ORDERED: LORazepam Inj 2mg/ml 1ml IM PRN (10:30)
[2018-11-16] MEDS: Haloperidol 5mg/ml Inj IM PRN (10:58)
[2018-11-16] MEDS ORDERED: traMADol 50mg tab ORAL PRN (11:00)
[2018-11-16] MEDS ORDERED: Heparin 5000 units/ml inj SUBQ SCH (11:00)
[2018-11-16] MEDS: NovoLOG Insulin Flexpen SUBQ SCH ×3 (11:30→20:37)
--- NOTE | 2018-11-16 11:45 | Diagnostic Imaging Report ---
Indication: Dyspnea Comparison: 10/17/2018 A single view chest radiograph was obtained. Findings: Interstitial opacities and prominent pulmonary vascularity noted. Scarring or atelectasis again noted in the right perihilar region. Some nodular infiltrates again noted at the lung bases. CT had been recommended on the prior occasion for further evaluation. The heart is mildly enlarged. There is a SVC stent present. Bones are osteopenic. IMPRESSION: Suspicion of CHF/interstitial edema. Nodular infiltrates noted at both lung bases. Left basilar pulmonary nodule also suspected. CT again is recommended for further evaluation.
--- NOTE | 2018-11-16 12:00 | NUR ---
NURSE NOTES: Seen by Dr. Price and said patient does not need HD today.
--- NOTE | 2018-11-16 14:01 | NUR ---
CASE MANAGEMENT:REVIEW 68YR OLD MALE BIBA FROM [facility]; SOB. SAT 60% FIO2 SI: CHF. COPD. ESRD ON HD 99.2 65 22 140/65 100% ON NON REBREATHER WBC+25.1 BUN+37 CR+3.7 IS: DUONEB HHN IV LEVAQUIN IV SOLUMEDROL CHEST XRAY BLOOD CX : TO TELEMETRY INTERQUAL CRITERIA MET
--- NOTE | 2018-11-16 17:29 | NUR ---
NURSE NOTES: Called [facility] and scheduled for dialysis with Aubrie.
[2018-11-16] MEDS: HydrALAZINE 10mg Tab ORAL SCH (18:00)
--- NOTE | 2018-11-16 19:07 | NUR ---
NURSE NOTES: Informed Dr. Hamilton that patient has refused blood draw and patient needs wound consult for right heel st3 wound. New orders carried out. And also informed Dr. Michaels for wound consult.
[2018-11-16] MEDS: Heparin 5000 units/ml inj SUBQ SCH (21:16)
--- NOTE | 2018-11-16 23:22 | NUR ---
HAND-OFF: Report given to SONG Larry. Patient is in stable condition. Endorsed plan of care.
--- NOTE | 2018-11-16 23:33 | NUR ---
NURSE NOTES: ASSUMED CARE OF PATIENT AT THIS TIME. PATIENT ASLEEP, FALL PRECAUTIONS IN PLACE: CALL LIGHT AND BED SIDE TABLE WITHIN REACH, BED IN LOW POSITION. WILL CONTINUE WITH PLAN OF CARE.
[2018-11-17] VITALS: BP 114/61
--- NOTE | 2018-11-17 00:35 | NUR ---
NURSE NOTES: PATIENT TURNED AND REPOSITIONED, LINEN CHANGED, RLE ELEVATED ON PILLOW WITH HEEL FLOATING AND HEEL PROTECTOR APPLIED. ALL NEEDS ATTENDED.
[2018-11-17] MEDS: Albuterol ud Inhalation HHN SCH ×4 (01:11→18:00)
[2018-11-17] MEDS: Ipratropium 0.02% Inh Soln 2.5ml UD HHN SCH ×4 (01:11→18:00)
[2018-11-17 04:00] VITALS: BP 121/67
[2018-11-17] MEDS: NovoLOG Insulin Flexpen SUBQ SCH ×4 (06:06→20:15)
[2018-11-17 07:18] LABS: HEMATOCRIT 39.6 % (42.0-52.0); HEMOGLOBIN 12.6 G/DL (14.2-18.0); MEAN CORPUSCULAR VOLUME 105 FL (80-99); PLATELET COUNT 254 K/UL (150-450); RED BLOOD COUNT 3.79 M/UL (4.70-6.10); RED CELL DISTRIBUTION WIDTH 15.9 % (11.6-14.8)
--- NOTE | 2018-11-17 07:20 | NUR ---
NURSE NOTES: I received the patient awake and resting in bed. Patient alert and oriented x2. Patient does not display any signs of distress or SOB. Bed in the lowest position and call light within reach.
--- NOTE | 2018-11-17 07:26 | NUR ---
HAND-OFF: Report given to Rafal ALEJANDRA RN. PATIENT ASLEEP, NO SIGNS OF DISTRESS NOTED.
[2018-11-17 07:29] LABS: WHITE BLOOD COUNT 22.9 K/UL (4.8-10.8)
[2018-11-17 07:42] LABS: % IRON SATURATION 69 % (15-50); IRON 59 ug/dL (50-175); TOTAL IRON BINDING CAPACITY 86 ug/dL (250-450)
[2018-11-17 07:44] LABS: PHOSPHORUS 5.2 MG/DL (2.5-4.9)
[2018-11-17 08:00] VITALS: BP 128/62
[2018-11-17 08:39] LABS: ALANINE AMINOTRANSFERASE 11 U/L (12-78); ALBUMIN 2.1 G/DL (3.4-5.0); ALBUMIN/GLOBULIN RATIO 0.4 (1.0-2.7); ALKALINE PHOSPHATASE 145 U/L (46-116); ANION GAP 9 mmol/L (5-15); ASPARTATE AMINO TRANSFERASE 11 U/L (15-37); BLOOD UREA NITROGEN 64 mg/dL (7-18); CALCIUM 9.3 MG/DL (8.5-10.1); CARBON DIOXIDE 24 MMOL/L (21-32); CHLORIDE 98 MMOL/L (98-107); CREATININE 4.8 MG/DL (0.55-1.30); FERRITIN 1801 NG/ML (8-388); POTASSIUM 5.7 MMOL/L (3.5-5.1); SODIUM 131 MMOL/L (136-145)
[2018-11-17] MEDS: Nephrovite tab (Rena-Vite) ORAL SCH (09:00)
[2018-11-17] MEDS: Aspirin EC 81mg tab ORAL SCH (09:00)
[2018-11-17] MEDS: Pyridoxine 50mg tab ORAL SCH (09:00)
[2018-11-17] MEDS: Heparin 5000 units/ml inj SUBQ SCH ×2 (09:00→20:15)
[2018-11-17] MEDS: Docusate 100mg cap ORAL SCH (09:00)
[2018-11-17] MEDS ORDERED: Vancomycin 1gm in D5W 275ml IVPB ONE (10:00)
--- NOTE | 2018-11-17 10:24 | NUR ---
NURSE NOTES: Patient refused morning medications. I educated the patient about his medications and the purpose, but he continued to refused. The patient said he wanted to go home and refused medications. Patient is resting in bed, bed in the lowest position and call light within reach.
--- NOTE | 2018-11-17 11:14 | NUR ---
CARDIOLOGY : PT REFUSED THE 2-D ECHOCARDIOGRAM HE SAID HE DOESNT WANT TO DO THIS TEST . RN IS AWARE.
--- NOTE | 2018-11-17 11:16 | NUR ---
NURSE NOTES: Patient refused the 2D echo when the veterinary laboratory technician attempted to perform the test.
[2018-11-17 12:00] VITALS: BP 120/61
[2018-11-17] MEDS: HydrALAZINE 10mg Tab ORAL SCH ×4 (12:00→17:14)
--- NOTE | 2018-11-17 13:54 | Consultation ---
History of Present Illness General Date patient seen: Nov 17, 2018 Chief Complaint: Dyspnea/Respdistress Present Illness HPI 68 year old male known to me from prior admission presented with SOB and respiratory insufficiency. On admission noted to still have multiple wounds requiring care. surgery called to evaluate and assist with care/management. Patient doing okay and overall unchanged. wounds have been being cared for at nursing facility. Allergies: Coded Allergies: PHENYTOIN (Verified Allergy, Unknown, 10/17/18) Uncoded Allergies: PENICILLIN (Allergy, Unknown, 10/17/18) Medication History Scheduled Amlodipine Besylate* (Amlodipine Besylate*), 10 MG ORAL DAILY, (Reported) Aspirin Ec* (Aspirin Ec*), 81 MG ORAL DAILY, (Reported) Atenolol* (Tenormin*), 50 MG ORAL TWICE A DAY, (Reported) Docusate Sodium* (Docusate Sodium*), 200 MG ORAL DAILY, (Reported) Duloxetine (Cymbalta), 20 MG ORAL DAILY, (Reported) Pyridoxine Hcl* (Vitamin B-6*), 25 MG ORAL DAILY, (Reported) Sevelamer Carbonate* (Renvela*), 800 MG ORAL THREE TIMES A DAY, (Reported) Vitamin B Cmplx/Vit C/Folic AC (Nephro-Trent Tablet), 1 TAB ORAL DAILY, (Reported ) Scheduled PRN Hydrocodone Bit/Acetaminophen 5-325* (Christine 5-325*), 1 TAB ORAL Q4H PRN for For Pain, (Reported) Tramadol Hcl* (Ultram*), 50 MG ORAL Q6H PRN for For Pain, (Reported) Miscellaneous Medications Insulin Lispro (Humalog), 0 SUBQ, (Reported) Linagliptin (Tradjenta), 5 MG PO, (Reported) Methoxy Peg-Epoetin Beta (Mircera), 100 MCG IJ, (Reported) [lipovitan], (Reported) [voncomycin ivpb], (Reported) Patient History Limited by: medical condition History Provided By: Patient, Medical Record, PMD Healthcare decision maker Resuscitation status Advanced Directive on File No Past Medical/Surgical History Past Medical/Surgical History: (1) Dyspnea (2) ESRD (end stage renal disease) on dialysis (3) CHF (congestive heart failure) (4) COPD (chronic obstructive pulmonary disease) (5) Anemia (6) Anxiety disorder (7) Pleural effusion (8) Decubitus ulcer of right heel, stage 4 (9) MDD (10) Bradycardia (11) Acute metabolic encephalopathy Review of Systems All Other Systems: negative except mentioned in HPI Physical Exam General Appearance: no apparent distress Lines, tubes and drains: other HEENT: mucous membranes moist Neck: normal inspection Respiratory/Chest: no respiratory distress, no accessory muscle use Cardiovascular/Chest: regular rhythm Abdomen: soft, no organomegaly, no mass Extremities: other Skin Exam: other Neurologic: alert Last 24 Hour Vital Signs Date Time Temp Pulse Resp B/P (MAP) Pulse Ox O2 Delivery O2 Flow Rate FiO2 11/17/18 13:50 71 20 98 Nasal Cannula 2.0 28 11/17/18 13:46 71 20 94 Nasal Cannula 2.0 28 11/17/18 12:00 97.3 61 0 120/61 (80) 96 11/17/18 09:00 69 128/62 11/17/18 09:00 Nasal Cannula 2.0 11/17/18 08:19 69 20 96 Nasal Cannula 2.0 28 11/17/18 08:19 69 20 100 Nasal Cannula 2.0 28 11/17/18 08:17 69 18 Nasal Cannula 2.0 11/17/18 08:00 97.1 56 20 128/62 (84) 100 11/17/18 04:00 52 11/17/18 04:00 97.0 53 20 121/67 (85) 95 11/17/18 01:24 56 20 100 Nasal Cannula 2.0 28 11/17/18 01:15 52 20 94 Nasal Cannula 2.0 28 11/17/18 00:00 97.2 53 20 114/61 (78) 96 11/17/18 00:00 114/61 11/17/18 00:00 51 11/16/18 21:00 Nasal Cannula 2.0 11/16/18 20:43 56 18 Nasal Cannula 2.0 11/16/18 20:00 53 11/16/18 20:00 97.3 54 16 118/62 (80) 100 11/16/18 18:00 113/63 11/16/18 17:30 Nasal Cannula 2.0 28 11/16/18 17:30 Nasal Cannula 2.0 28 11/16/18 17:13 53 11/16/18 16:00 96.9 54 20 113/63 (80) 100 Intake and Output 11/16/18 11/17/18 19:00 07:00 Output Total 0 ml Balance 0 ml Output Urine Total 0 ml Laboratory Tests Test 11/17/18 06:25 White Blood Count 22.9 K/UL (4.8-10.8) *H Red Blood Count 3.79 M/UL (4.70-6.10) L Hemoglobin 12.6 G/DL (14.2-18.0) L Hematocrit 39.6 % (42.0-52.0) L Mean Corpuscular Volume 105 FL (80-99) H Mean Corpuscular Hemoglobin 33.2 PG (27.0-31.0) H Mean Corpuscular Hemoglobin Concent 31.8 G/DL (32.0-36.0) L Red Cell Distribution Width 15.9 % (11.6-14.8) H Platelet Count 254 K/UL (150-450) Mean Platelet Volume 9.8 FL (6.5-10.1) Neutrophils (%) (Auto) % (45.0-75.0) Lymphocytes (%) (Auto) % (20.0-45.0) Monocytes (%) (Auto) % (1.0-10.0) Eosinophils (%) (Auto) % (0.0-3.0) Basophils (%) (Auto) % (0.0-2.0) Differential Total Cells Counted 100 Neutrophils % (Manual) 98 % (45-75) H Lymphocytes % (Manual) 1 % (20-45) L Monocytes % (Manual) 1 % (1-10) Eosinophils % (Manual) 0 % (0-3) Basophils % (Manual) 0 % (0-2) Band Neutrophils 0 % (0-8) Platelet Estimate Adequate Platelet Morphology Normal Anisocytosis 1+ Macrocytosis 2+ Sodium Level 131 MMOL/L (136-145) L Potassium Level 5.7 MMOL/L (3.5-5.1) H Chloride Level 98 MMOL/L (98-107) Carbon Dioxide Level 24 MMOL/L (21-32) Anion Gap 9 mmol/L (5-15) Blood Urea Nitrogen 64 mg/dL (7-18) H Creatinine 4.8 MG/DL (0.55-1.30) #H Estimat Glomerular Filtration Rate 12.2 mL/min (>60) Glucose Level 196 MG/DL (74-106) H Uric Acid 4.2 MG/DL (2.6-7.2) Calcium Level 9.3 MG/DL (8.5-10.1) # Phosphorus Level 5.2 MG/DL (2.5-4.9) H Magnesium Level 2.6 MG/DL (1.8-2.4) H Iron Level 59 ug/dL (50-175) Total Iron Binding Capacity 86 ug/dL (250-450) L Percent Iron Saturation 69 % (15-50) H Unsaturated Iron Binding 27 ug/dL (112-346) L Ferritin 1801 NG/ML (8-388) H Total Bilirubin 1.0 MG/DL (0.2-1.0) Aspartate Amino Transf (AST/SGOT) 11 U/L (15-37) L Alanine Aminotransferase (ALT/SGPT) 11 U/L (12-78) L Alkaline Phosphatase 145 U/L (46-116) H Pro-B-Type Natriuretic Peptide > 62400 pg/mL (0-125) H Total Protein 7.8 G/DL (6.4-8.2) Albumin 2.1 G/DL (3.4-5.0) L Globulin 5.7 g/dL Albumin/Globulin Ratio 0.4 (1.0-2.7) L Vitamin B12 Level 1135 PG/ML (193-986) H Folate 14.2 NG/ML (8.6-58.9) Random Vancomycin Level 19.6 ug/mL Height (Feet): 5 Height (Inches): 7.00 Weight (Pounds): 160 Medications Current Medications Medications (Trade) Dose Ordered Sig/Ronald Route PRN Reason Start Time Stop Time Status Last Admin Dose Admin Acetaminophen/ Hydrocodone Bitart (Christine 5/325) 1 tab Q4H PRN ORAL Severe Pain (Pain Scale 7-10) 11/16/18 11:00 11/23/18 10:59 Albuterol Sulfate (Proventil) 2.5 mg Q6HR HHN 11/16/18 06:00 11/21/18 05:59 11/17/18 13:49 Amlodipine Besylate (Norvasc) 10 mg DAILY ORAL 11/17/18 09:00 12/17/18 08:59 Aspirin (Ecotrin) 81 mg DAILY ORAL 11/17/18 09:00 12/17/18 08:59 Dextrose (Dextrose 50%) 25 ml Q30M PRN IV Hypoglycemia 11/16/18 08:15 12/16/18 08:14 Dextrose (Dextrose 50%) 50 ml Q30M PRN IV Hypoglycemia 11/16/18 08:15 12/16/18 08:14 Diphenhydramine HCl (Benadryl) 50 mg Q6H PRN IM itching 11/16/18 10:30 12/16/18 10:29 11/16/18 10:58 Docusate Sodium (Colace) 200 mg DAILY ORAL 11/17/18 09:00 12/17/18 08:59 Duloxetine HCl (Cymbalta) 20 mg DAILY ORAL 11/17/18 09:00 12/17/18 08:59 Haloperidol Lactate (Haldol) 5 mg Q6H PRN IM Agitation 11/16/18 10:30 12/16/18 10:29 11/16/18 10:58 Heparin Sodium (Porcine) (Heparin 5000 units/ml) 5,000 units EVERY 12 HOURS SUBQ 11/16/18 21:00 12/16/18 20:59 11/16/18 21:16 Hydralazine HCl (Apresoline) 10 mg Q6HR ORAL 11/16/18 18:00 12/16/18 17:59 Insulin Aspart (NovoLOG) BEFORE MEALS AND HS SUBQ 11/16/18 11:30 12/16/18 11:29 11/17/18 06:06 Ipratropium [place] (Atrovent) 0.5 mcg Q6HR HHN 11/16/18 06:00 11/21/18 05:59 11/17/18 13:48 Levofloxacin 100 ml @ 100 mls/hr Q48H IVPB 11/17/18 23:00 11/24/18 22:59 Lorazepam (Ativan 2mg/ml 1ml) 2 mg Q4H PRN IM For Anxiety 11/16/18 10:30 11/23/18 10:29 11/16/18 10:58 Pyridoxine HCl (Vitamin B6) 25 mg DAILY ORAL 11/17/18 09:00 12/17/18 08:59 Sevelamer Carbonate (Renvela) 800 mg THREE TIMES A DAY ORAL 11/16/18 13:00 12/16/18 12:59 Tramadol HCl (Ultram) 50 mg Q6H PRN ORAL Moderate Pain (Pain Scale 4-6) 11/16/18 11:00 11/23/18 10:59 Vancomycin HCl (Vanco rx to dose) 1 ea DAILY PRN MISC Per rx protocol 11/16/18 08:15 12/16/18 08:14 Vitamin B Complex/ Vit C/Folic Acid (Nephrovite) 1 tab DAILY ORAL 11/17/18 09:00 12/17/18 08:59 Assessment/Plan Problem List: (1) Decubitus ulcer of right heel, stage 4 Assessment & Plan: Pt presents with full thickness stage 4 ulcer R heel which he has had for months (L)3cm x (W)2.5cm and 1cm deep. moderate slough noted to base of of wound ,otherwise romeo and moist.Bone palpable .(+) maceration along borders.Periwound fluctuant without erythema. 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 Plan: Cleanse R heel wound with Saline.Apply Therahoney to wound. Apply Cavilon Skin Barrier along borders and Periwound.Cover with Abd and wrap with Kerlix Daily and prn. Apply Benzoin Tincture Swab to R 1st metatarsal and wrap with Kerlix Daily and prn. Apply Moisture Barrier Paste to sacral area .Cover with Optifoam drsg .Change every 3 days and prn. Off-load R heel with pillow. Encourage and assist as needed with repositioning at least every 2hours or as tolerated. ICD Codes: L89.614 - Pressure ulcer of right heel, stage 4 SNOMED: 849250042 (2) Hx of BKA ICD Codes: Z89.519 - Acquired absence of unspecified leg below knee SNOMED: 383452423, 207885484 (3) Dyspnea ICD Codes: R06.00 - Dyspnea, unspecified SNOMED: 710521860 Qualifiers: Qualified Codes: R06.00 - Dyspnea, unspecified Damian Michaels Nov 17, 2018 13:54
--- NOTE | 2018-11-17 14:15 | General Progress Note ---
Assessment/Plan Assessment/Plan #Acute hypoxic respiratory failure #Fluid overload #Non-compliance with HD and medications #lacks decision making capacity per psychiatry -plan for HD today per Nephrology recs -if he refuses will need to be sedated given lack of capacity -continue psychotrropics per Dr. Patel -continue to monitor BMP, renal function #Leukocytosis #Possible sepsis -continue vancomyin and Levaquin -await cultures Subjective Date patient seen: Nov 17, 2018 Time patient seen: 13:00 ROS Limited/Unobtainable: Yes Allergies: Coded Allergies: PHENYTOIN (Verified Allergy, Unknown, 10/17/18) Uncoded Allergies: PENICILLIN (Allergy, Unknown, 10/17/18) Subjective Medicine follow up for acute hypoxic respiratory failure, fluid overload, noncompliance with HD. Patient is easily agitated, wants to leave, will not answer my questions nor allow me to exam him Objective Last 24 Hour Vital Signs Date Time Temp Pulse Resp B/P (MAP) Pulse Ox O2 Delivery O2 Flow Rate FiO2 11/17/18 13:50 71 20 98 Nasal Cannula 2.0 28 11/17/18 13:46 71 20 94 Nasal Cannula 2.0 28 11/17/18 12:00 97.3 61 0 120/61 (80) 96 11/17/18 09:00 69 128/62 11/17/18 09:00 Nasal Cannula 2.0 11/17/18 08:19 69 20 96 Nasal Cannula 2.0 28 11/17/18 08:19 69 20 100 Nasal Cannula 2.0 28 11/17/18 08:17 69 18 Nasal Cannula 2.0 11/17/18 08:00 97.1 56 20 128/62 (84) 100 11/17/18 04:00 52 11/17/18 04:00 97.0 53 20 121/67 (85) 95 11/17/18 01:24 56 20 100 Nasal Cannula 2.0 28 11/17/18 01:15 52 20 94 Nasal Cannula 2.0 28 11/17/18 00:00 97.2 53 20 114/61 (78) 96 11/17/18 00:00 114/61 11/17/18 00:00 51 11/16/18 21:00 Nasal Cannula 2.0 11/16/18 20:43 56 18 Nasal Cannula 2.0 11/16/18 20:00 53 2/22/19 20:00 97.3 54 16 118/62 (80) 100 11/16/18 18:00 113/63 11/16/18 17:30 Nasal Cannula 2.0 28 11/16/18 17:30 Nasal Cannula 2.0 28 11/16/18 17:13 53 11/16/18 16:00 96.9 54 20 113/63 (80) 100 Intake and Output 11/16/18 11/17/18 19:00 07:00 Output Total 0 ml Balance 0 ml Output Urine Total 0 ml Laboratory Tests 11/17/18 06:25: White Blood Count 22.9*H, Red Blood Count 3.79L, Hemoglobin 12.6L, Hematocrit 39.6L, Mean Corpuscular Volume 105H, Mean Corpuscular Hemoglobin 33.2H, Mean Corpuscular Hemoglobin Concent 31.8L, Red Cell Distribution Width 15.9H, Platelet Count 254, Mean Platelet Volume 9.8, Neutrophils (%) (Auto) , Lymphocytes (%) (Auto) , Monocytes (%) (Auto) , Eosinophils (%) (Auto) , Basophils (%) (Auto) , Differential Total Cells Counted 100, Neutrophils % ( Manual) 98H, Lymphocytes % (Manual) 1L, Monocytes % (Manual) 1, Eosinophils % ( Manual) 0, Basophils % (Manual) 0, Band Neutrophils 0, Platelet Estimate Adequate, Platelet Morphology Normal, Anisocytosis 1+, Macrocytosis 2+, Sodium Level 131L, Potassium Level 5.7H, Chloride Level 98, Carbon Dioxide Level 24, Anion Gap 9, Blood Urea Nitrogen 64H, Creatinine 4.8#H, Estimat Glomerular Filtration Rate 12.2, Glucose Level 196H, Uric Acid 4.2, Calcium Level 9.3#, Phosphorus Level 5.2H, Magnesium Level 2.6H, Iron Level 59, Total Iron Binding Capacity 86L, Percent Iron Saturation 69H, Unsaturated Iron Binding 27L, Ferritin 1801H, Total Bilirubin 1.0, Aspartate Amino Transf (AST/SGOT) 11L, Alanine Aminotransferase (ALT/SGPT) 11L, Alkaline Phosphatase 145H, Pro-B-Type Natriuretic Peptide > 21945I, Total Protein 7.8, Albumin 2.1L, Globulin 5.7, Albumin/Globulin Ratio 0.4L, Vitamin B12 Level 1135H, Folate 14.2, Random Vancomycin Level 19.6 Height (Feet): 5 Height (Inches): 7.00 Weight (Pounds): 160 Shivam Plascencia MD Nov 17, 2018 14:15
--- NOTE | 2018-11-17 15:03 | Nephrology Progress Note ---
Assessment/Plan Problem List: (1) ESRD (end stage renal disease) on dialysis (2) Bradycardia (3) Anemia (4) Leukocytosis Assessment (1) ESRD (end stage renal disease) right arm fistula (2) Fluid overload, unspecified (3) Bradycardia (4) Anemia (5) Pleural effusion Plan just done with HD at times refuses care and meds ! adjust BP meds 2D Echo pending stop beta blockers on hydralazin and procardia per consultants Subjective ROS Limited/Unobtainable: No Constitutional: Reports: malaise, weakness Objective Objective Last 24 Hour Vital Signs Date Time Temp Pulse Resp B/P (MAP) Pulse Ox O2 Delivery O2 Flow Rate FiO2 11/17/18 13:50 71 20 98 Nasal Cannula 2.0 28 11/17/18 13:46 71 20 94 Nasal Cannula 2.0 28 11/17/18 12:00 97.3 61 0 120/61 (80) 96 11/17/18 11:47 60 11/17/18 09:00 69 128/62 11/17/18 09:00 Nasal Cannula 2.0 11/17/18 08:19 69 20 96 Nasal Cannula 2.0 28 11/17/18 08:19 69 20 100 Nasal Cannula 2.0 28 11/17/18 08:17 69 18 Nasal Cannula 2.0 11/17/18 08:00 97.1 56 20 128/62 (84) 100 11/17/18 07:42 53 11/17/18 04:00 52 11/17/18 04:00 97.0 53 20 121/67 (85) 95 11/17/18 01:24 56 20 100 Nasal Cannula 2.0 28 11/17/18 01:15 52 20 94 Nasal Cannula 2.0 28 11/17/18 00:00 97.2 53 20 114/61 (78) 96 11/17/18 00:00 114/61 11/17/18 00:00 51 11/16/18 21:00 Nasal Cannula 2.0 11/16/18 20:43 56 18 Nasal Cannula 2.0 11/16/18 20:00 53 11/16/18 20:00 97.3 54 16 118/62 (80) 100 11/16/18 18:00 113/63 11/16/18 17:30 Nasal Cannula 2.0 28 11/16/18 17:30 Nasal Cannula 2.0 28 11/16/18 17:13 53 11/16/18 16:00 96.9 54 20 113/63 (80) 100 Intake and Output 11/16/18 11/17/18 19:00 07:00 Output Total 0 ml Balance 0 ml Output Urine Total 0 ml Laboratory Tests 11/17/18 06:25: White Blood Count 22.9*H, Red Blood Count 3.79L, Hemoglobin 12.6L, Hematocrit 39.6L, Mean Corpuscular Volume 105H, Mean Corpuscular Hemoglobin 33.2H, Mean Corpuscular Hemoglobin Concent 31.8L, Red Cell Distribution Width 15.9H, Platelet Count 254, Mean Platelet Volume 9.8, Neutrophils (%) (Auto) , Lymphocytes (%) (Auto) , Monocytes (%) (Auto) , Eosinophils (%) (Auto) , Basophils (%) (Auto) , Differential Total Cells Counted 100, Neutrophils % ( Manual) 98H, Lymphocytes % (Manual) 1L, Monocytes % (Manual) 1, Eosinophils % ( Manual) 0, Basophils % (Manual) 0, Band Neutrophils 0, Platelet Estimate Adequate, Platelet Morphology Normal, Anisocytosis 1+, Macrocytosis 2+, Sodium Level 131L, Potassium Level 5.7H, Chloride Level 98, Carbon Dioxide Level 24, Anion Gap 9, Blood Urea Nitrogen 64H, Creatinine 4.8#H, Estimat Glomerular Filtration Rate 12.2, Glucose Level 196H, Uric Acid 4.2, Calcium Level 9.3#, Phosphorus Level 5.2H, Magnesium Level 2.6H, Iron Level 59, Total Iron Binding Capacity 86L, Percent Iron Saturation 69H, Unsaturated Iron Binding 27L, Ferritin 1801H, Total Bilirubin 1.0, Aspartate Amino Transf (AST/SGOT) 11L, Alanine Aminotransferase (ALT/SGPT) 11L, Alkaline Phosphatase 145H, Pro-B-Type Natriuretic Peptide > 74030E, Total Protein 7.8, Albumin 2.1L, Globulin 5.7, Albumin/Globulin Ratio 0.4L, Vitamin B12 Level 1135H, Folate 14.2, Random Vancomycin Level 19.6 Height (Feet): 5 Height (Inches): 7.00 Weight (Pounds): 160 General Appearance: no apparent distress Cardiovascular: normal rate Respiratory/Chest: decreased breath sounds Abdomen: soft Fouladian,Alessandro MD Nov 17, 2018 15:03
--- NOTE | 2018-11-17 16:10 | NUR ---
NURSE NOTES: Patient continues to refuse treatment and medications. I listened to the patient about his concerns and wanting to leave. I talked with the patient about why he is here, but he continues to refuse treatment and state that he is okay to go home. Patient is resting in bed, bed in the lowest position and call light within reach.
[2018-11-17 17:08] VITALS: BP 131/75
--- NOTE | 2018-11-17 19:22 | NUR ---
NURSE NOTES: Received patient from SONG Bustamante. Patient is awake, on bed, upset verbalizing "I want to go home. I can sign all the papers so I can leave." Explained to patient reasons why he is in the hospital but patient refused to listen. Unable to assess at this time d/t refusal of care. Will try again later. Call light within reach. Bed brakes engaged.
--- NOTE | 2018-11-17 19:27 | NUR ---
HAND-OFF: Report given to Orlando Polk RN.
--- NOTE | 2018-11-17 19:52 | NUR ---
NURSE NOTES: Patient refuses to have his vital signs taken. Explained risk and benefits. Refused x3. Will try again later.
[2018-11-17 20:00] VITALS: BP 127/82
--- NOTE | 2018-11-17 20:33 | NUR ---
NURSE NOTES: Patient repositioned. Cooperated to be turned as well as medications given. Denies pain at this time.
[2018-11-18] VITALS: BP 133/65
--- NOTE | 2018-11-18 00:35 | NUR ---
NURSE NOTES: RT notified RN that patient is refusing breathing treatment. Spoke to patient, verbalizing "I dont need it." Explained risk and benefits. Refused x3.
--- NOTE | 2018-11-18 02:17 | NUR ---
NURSE NOTES: BMx1. Cleaned and kept dry. Assessed patient's skin at this time d/t refusal previously. Patient is cooperative and is calm.
[2018-11-18 04:00] VITALS: BP 131/61
[2018-11-18] MEDS: HydrALAZINE 10mg Tab ORAL SCH ×5 (06:00→23:41)
[2018-11-18] MEDS: NovoLOG Insulin Flexpen SUBQ SCH ×4 (06:09→20:19)
--- NOTE | 2018-11-18 06:09 | NUR ---
NURSE NOTES: Patient refused medication at this time as well as insulin shot. BS 154. Patient verbalizing "I am okay. I do not want to take it." Explained risk and benefits. Patient still refused x3.
--- NOTE | 2018-11-18 07:38 | NUR ---
HAND-OFF: Report given to SONG Eduardo. Endorsed plan of care.
--- NOTE | 2018-11-18 07:45 | NUR ---
NURSE NOTES: Received patient from SONG Lugo. Patient is awake, on bed, upset verbalizing "I want to go home." Explained to patient reasons why he is in the hospital but patient refused to listen. Dr. Strong. entered the room and spoke to the patient on possible discharge. Call light within reach. Bed brakes engaged. Will follow up with plan of care.
[2018-11-18] MEDS: Albuterol ud Inhalation HHN SCH ×4 (07:52→20:17)
[2018-11-18] MEDS: Ipratropium 0.02% Inh Soln 2.5ml UD HHN SCH ×4 (07:52→20:17)
--- NOTE | 2018-11-18 07:56 | NUR ---
NURSE NOTES: RT notified RN that patient is refusing breathing treatment. Spoke to patient, verbalizing "I dont need it." Explained risk and benefits. Patient refused.
[2018-11-18 08:00] VITALS: BP 159/69
[2018-11-18] MEDS: Docusate 100mg cap ORAL SCH (08:19)
[2018-11-18] MEDS: Aspirin EC 81mg tab ORAL SCH (08:20)
[2018-11-18] MEDS: Nephrovite tab (Rena-Vite) ORAL SCH (08:20)
[2018-11-18] MEDS: Pyridoxine 50mg tab ORAL SCH (08:20)
[2018-11-18] MEDS: Heparin 5000 units/ml inj SUBQ SCH ×2 (08:20→20:21)
--- NOTE | 2018-11-18 08:21 | NUR ---
NURSE NOTES: Patient refused most medications. Patient also refused morning labs. He states, " I don't need this." Addendum: 11/18/18 at 1038 by Jayce Martinez RN NURSE NOTES: [id number]: Spoke to Dr. Plascencia. States to try again to get labs and give medication. Labs were drawn. Patient manage to take only the Norvasc medication.
[2018-11-18 09:45] LABS: HEMOGLOBIN 11.6 G/DL (14.2-18.0); MEAN CORPUSCULAR VOLUME 105 FL (80-99); PLATELET COUNT 242 K/UL (150-450); RED BLOOD COUNT 3.53 M/UL (4.70-6.10); RED CELL DISTRIBUTION WIDTH 15.5 % (11.6-14.8); WHITE BLOOD COUNT 20.4 K/UL (4.8-10.8)
[2018-11-18 09:55] LABS: ANION GAP 6 mmol/L (5-15); BLOOD UREA NITROGEN 71 mg/dL (7-18); CALCIUM 9.6 MG/DL (8.5-10.1); CARBON DIOXIDE 27 MMOL/L (21-32); CHLORIDE 97 MMOL/L (98-107); CREATININE 4.7 MG/DL (0.55-1.30); POTASSIUM 5.4 MMOL/L (3.5-5.1); SODIUM 130 MMOL/L (136-145)
--- NOTE | 2018-11-18 10:20 | NUR ---
NURSE NOTES: Notified Dr. Plascencia about labs which include WBC 20.4, Na 130, potassium 5.4, BUN 71, and creatinine of 4.7. No new orders at this time.
--- NOTE | 2018-11-18 11:15 | General Progress Note ---
Assessment/Plan Assessment/Plan #Acute hypoxic respiratory failure #Fluid overload -s/p HD yesterday with 2 liters removed -continue with HD as per Nephrology recs -continue current psychotropics -psychiatry followup tomorrow -continue to monitor BMP, renal function #Leukocytosis #Possible sepsis -continue vancomycin and Levaquin for now -consult ID -await cultures #Non-compliance with HD and medications #Depression #Mood disorder #lacks decision making capacity per psychiatry -continue current psychotropics -psychiatry followup tomorr Subjective Date patient seen: Nov 18, 2018 Time patient seen: 09:48 ROS Limited/Unobtainable: Yes Constitutional: Denies: fever Cardiovascular: Denies: chest pain Respiratory: Denies: cough Gastrointestinal/Abdominal: Denies: abdomen distended, abdominal pain Allergies: Coded Allergies: PHENYTOIN (Verified Allergy, Unknown, 10/17/18) Uncoded Allergies: PENICILLIN (Allergy, Mild, 11/17/18) Subjective Medicine follow up for acute hypoxic respiratory failure, fluid overload, noncompliance with HD. Somewhat more compliant Underwent HD yesterday, allowed blood draws today Refusing medications this morning. Objective Last 24 Hour Vital Signs Date Time Temp Pulse Resp B/P (MAP) Pulse Ox O2 Delivery O2 Flow Rate FiO2 11/18/18 10:31 88 159/69 11/18/18 09:00 Nasal Cannula 2.0 11/18/18 08:00 98.0 88 18 159/69 (99) 95 11/18/18 07:50 Nasal Cannula 2.0 28 11/18/18 07:50 74 20 Nasal Cannula 2.0 11/18/18 07:50 74 20 95 Nasal Cannula 2.0 28 11/18/18 07:31 61 11/18/18 06:00 134/72 11/18/18 04:00 98.0 63 19 131/61 (84) 95 11/18/18 03:36 Nasal Cannula 2.0 11/18/18 03:32 63 11/18/18 00:05 Nasal Cannula 11/18/18 00:05 Nasal Cannula 11/18/18 00:00 99.2 67 19 133/65 (87) 98 11/17/18 23:41 65 11/17/18 21:00 Nasal Cannula 2.0 11/17/18 20:00 67 16 127/82 (97) 94 11/17/18 19:44 67 11/17/18 19:10 Nasal Cannula 11/17/18 19:10 Nasal Cannula 11/17/18 19:10 Nasal Cannula 2.0 11/17/18 17:14 131/75 11/17/18 17:08 69 131/75 (93) 92 11/17/18 15:56 70 11/17/18 13:50 71 20 98 Nasal Cannula 2.0 28 11/17/18 13:46 71 20 94 Nasal Cannula 2.0 28 11/17/18 12:00 131/75 11/17/18 12:00 97.3 61 0 120/61 (80) 96 11/17/18 11:47 60 Intake and Output 11/17/18 11/18/18 18:59 06:59 Intake Total 480 ml 2120 ml Balance 480 ml 2120 ml Intake Oral 480 ml 120 ml Hemodialysis 2000 ml # Bowel Movements 5 Laboratory Tests 11/18/18 09:15: White Blood Count 20.4H, Red Blood Count 3.53L, Hemoglobin 11.6L, Hematocrit 37.0L, Mean Corpuscular Volume 105H, Mean Corpuscular Hemoglobin 32.9H, Mean Corpuscular Hemoglobin Concent 31.4L, Red Cell Distribution Width 15.5H, Platelet Count 242, Mean Platelet Volume 8.7, Neutrophils (%) (Auto) , Lymphocytes (%) (Auto) , Monocytes (%) (Auto) , Eosinophils (%) (Auto) , Basophils (%) (Auto) , Neutrophils % (Manual) [Pending], Lymphocytes % (Manual) [Pending], Platelet Estimate [Pending], Platelet Morphology [Pending], Sodium Level 130L, Potassium Level 5.4H, Chloride Level 97L, Carbon Dioxide Level 27, Anion Gap 6, Blood Urea Nitrogen 71H, Creatinine 4.7H, Estimat Glomerular Filtration Rate 12.5, Glucose Level 145H, Calcium Level 9.6 Height (Feet): 5 Height (Inches): 7.00 Weight (Pounds): 159 General Appearance: no apparent distress, alert Neck: normal alignment, supple Cardiovascular: normal rate, regular rhythm Respiratory/Chest: lungs clear, normal breath sounds, no respiratory distress Abdomen: non tender, soft Shivam Plascencia MD Nov 18, 2018 11:15
[2018-11-18] MEDS: Haloperidol 5mg/ml Inj IM PRN (11:46)
--- NOTE | 2018-11-18 11:54 | NUR ---
NURSE NOTES: Patient threw juices at patient per SONG Prather. Gave Haldol IM injection (see emr). Addendum: 11/18/18 at 1236 by Jayce Martinez RN *SONG Prather saw Mr. Weber, patient, throw juices at patient in .
[2018-11-18 12:00] VITALS: BP 144/58
--- NOTE | 2018-11-18 12:00 | Infectious Diseases Prog Note ---
Assessment/Plan Assessment/Plan Full consult dictated: A) 1) possible sepsis, leukocytosis 2) ? pna, chf 3) esrd, hd 4) pmh noted 5) allergies - pcn, phenytoin P) 1) on levofloxacin and vancomycin, add amikacin 2) check sc, labs, cultures, chest x-ray 3) consider CT imaging if leukocytosis persists 4) thank you Subjective Allergies: Coded Allergies: PHENYTOIN (Verified Allergy, Unknown, 10/17/18) Uncoded Allergies: PENICILLIN (Allergy, Mild, 11/17/18) Objective Vital Signs Last 24 Hour Vital Signs Date Time Temp Pulse Resp B/P (MAP) Pulse Ox O2 Delivery O2 Flow Rate FiO2 11/18/18 10:31 88 159/69 11/18/18 09:00 Nasal Cannula 2.0 11/18/18 08:00 98.0 88 18 159/69 (99) 95 11/18/18 07:50 Nasal Cannula 2.0 28 11/18/18 07:50 74 20 Nasal Cannula 2.0 11/18/18 07:50 74 20 95 Nasal Cannula 2.0 28 11/18/18 07:31 61 11/18/18 06:00 134/72 11/18/18 04:00 98.0 63 19 131/61 (84) 95 11/18/18 03:36 Nasal Cannula 2.0 11/18/18 03:32 63 11/18/18 00:05 Nasal Cannula 11/18/18 00:05 Nasal Cannula 11/18/18 00:00 99.2 67 19 133/65 (87) 98 11/17/18 23:41 65 11/17/18 21:00 Nasal Cannula 2.0 11/17/18 20:00 67 16 127/82 (97) 94 11/17/18 19:44 67 11/17/18 19:10 Nasal Cannula 11/17/18 19:10 Nasal Cannula 11/17/18 19:10 Nasal Cannula 2.0 11/17/18 17:14 131/75 11/17/18 17:08 69 131/75 (93) 92 11/17/18 15:56 70 11/17/18 13:50 71 20 98 Nasal Cannula 2.0 28 11/17/18 13:46 71 20 94 Nasal Cannula 2.0 28 11/17/18 12:00 131/75 11/17/18 12:00 97.3 61 0 120/61 (80) 96 Height (Feet): 5 Height (Inches): 7.00 Weight (Pounds): 159 Microbiology Date/Time Source Procedure Growth Status 11/15/18 21:45 Blood Blood Culture - Preliminary NO GROWTH AFTER 48 HOURS Resulted 11/15/18 21:30 Blood Blood Culture - Preliminary NO GROWTH AFTER 48 HOURS Resulted 11/16/18 04:00 Nasal Nares MRSA Culture - Final NO METHICILLIN RESISTANT STAPH AUREUS... Complete 11/15/18 22:50 Nasal Nares MRSA Culture - Final NO METHICILLIN RESISTANT STAPH AUREUS... Complete 11/15/18 22:50 Nasal Nares Influenza Types A,B Antigen (SUHAIL) - Final Complete 11/15/18 22:50 Rectum - Final NO CARBAPENEM-RESISTANT ENTEROBACTERI... Complete 11/15/18 22:50 Rectum VRE Culture - Final Enterococcus Faecalis - Vre Complete Laboratory Tests Test 11/18/18 09:15 White Blood Count 20.4 K/UL (4.8-10.8) H Red Blood Count 3.53 M/UL (4.70-6.10) L Hemoglobin 11.6 G/DL (14.2-18.0) L Hematocrit 37.0 % (42.0-52.0) L Mean Corpuscular Volume 105 FL (80-99) H Mean Corpuscular Hemoglobin 32.9 PG (27.0-31.0) H Mean Corpuscular Hemoglobin Concent 31.4 G/DL (32.0-36.0) L Red Cell Distribution Width 15.5 % (11.6-14.8) H Platelet Count 242 K/UL (150-450) Mean Platelet Volume 8.7 FL (6.5-10.1) Neutrophils (%) (Auto) % (45.0-75.0) Lymphocytes (%) (Auto) % (20.0-45.0) Monocytes (%) (Auto) % (1.0-10.0) Eosinophils (%) (Auto) % (0.0-3.0) Basophils (%) (Auto) % (0.0-2.0) Differential Total Cells Counted 100 Neutrophils % (Manual) 93 % (45-75) H Lymphocytes % (Manual) 1 % (20-45) L Monocytes % (Manual) 6 % (1-10) Eosinophils % (Manual) 0 % (0-3) Basophils % (Manual) 0 % (0-2) Band Neutrophils 0 % (0-8) Platelet Estimate Adequate Platelet Morphology Normal Hypochromasia 1+ Anisocytosis 1+ Macrocytosis 1+ Sodium Level 130 MMOL/L (136-145) L Potassium Level 5.4 MMOL/L (3.5-5.1) H Chloride Level 97 MMOL/L (98-107) L Carbon Dioxide Level 27 MMOL/L (21-32) Anion Gap 6 mmol/L (5-15) Blood Urea Nitrogen 71 mg/dL (7-18) H Creatinine 4.7 MG/DL (0.55-1.30) H Estimat Glomerular Filtration Rate 12.5 mL/min (>60) Glucose Level 145 MG/DL (74-106) H Calcium Level 9.6 MG/DL (8.5-10.1) Current Medications Medications (Trade) Dose Ordered Sig/Ronald Route PRN Reason Start Time Stop Time Status Last Admin Dose Admin Acetaminophen/ Hydrocodone Bitart ([place] 5/325) 1 tab Q4H PRN ORAL Severe Pain (Pain Scale 7-10) 11/16/18 11:00 11/23/18 10:59 Albuterol Sulfate (Proventil) 2.5 mg Q6HR HHN 11/16/18 06:00 11/21/18 05:59 11/17/18 13:49 Amlodipine Besylate (Norvasc) 10 mg DAILY ORAL 11/17/18 09:00 12/17/18 08:59 11/18/18 10:31 Aspirin (Ecotrin) 81 mg DAILY ORAL 11/17/18 09:00 12/17/18 08:59 Dextrose (Dextrose 50%) 25 ml Q30M PRN IV Hypoglycemia 11/16/18 08:15 12/16/18 08:14 Dextrose (Dextrose 50%) 50 ml Q30M PRN IV Hypoglycemia 11/16/18 08:15 12/16/18 08:14 Diphenhydramine HCl (Benadryl) 50 mg Q6H PRN IM itching 11/16/18 10:30 12/16/18 10:29 11/16/18 10:58 Docusate Sodium (Colace) 200 mg DAILY ORAL 11/17/18 09:00 12/17/18 08:59 Duloxetine HCl (Cymbalta) 20 mg DAILY ORAL 11/17/18 09:00 12/17/18 08:59 Haloperidol Lactate (Haldol) 5 mg Q6H PRN IM Agitation 11/16/18 10:30 12/16/18 10:29 11/18/18 11:46 Heparin Sodium (Porcine) (Heparin 5000 units/ml) 5,000 units EVERY 12 HOURS SUBQ 11/16/18 21:00 12/16/18 20:59 11/17/18 20:15 Hydralazine HCl (Apresoline) 10 mg Q6HR ORAL 11/16/18 18:00 12/16/18 17:59 11/17/18 17:14 Insulin Aspart (NovoLOG) BEFORE MEALS AND HS SUBQ 11/16/18 11:30 12/16/18 11:29 11/17/18 20:15 Ipratropium [place] (Atrovent) 0.5 mcg Q6HR HHN 11/16/18 06:00 11/21/18 05:59 11/17/18 13:48 Levofloxacin 100 ml @ 100 mls/hr Q48H IVPB 11/17/18 23:00 11/24/18 22:59 11/18/18 00:04 Lorazepam (Ativan 2mg/ml 1ml) 2 mg Q4H PRN IM For Anxiety 11/16/18 10:30 11/23/18 10:29 11/16/18 10:58 Pyridoxine HCl (Vitamin B6) 25 mg DAILY ORAL 11/17/18 09:00 12/17/18 08:59 Sevelamer Carbonate (Renvela) 1,600 mg THREE TIMES A DAY ORAL 11/17/18 18:00 12/16/18 12:59 11/17/18 18:00 Tramadol HCl (Ultram) 50 mg Q6H PRN ORAL Moderate Pain (Pain Scale 4-6) 11/16/18 11:00 11/23/18 10:59 Vancomycin HCl (Vanco rx to dose) 1 ea DAILY PRN MISC Per rx protocol 11/16/18 08:15 12/16/18 08:14 Vitamin B Complex/ Vit C/Folic Acid (Nephrovite) 1 tab DAILY ORAL 11/17/18 09:00 12/17/18 08:59 Anshu Munguia MD Nov 18, 2018 12:00
[2018-11-18] MEDS ORDERED: Amikacin Rx to dose MISC PRN (12:15)
--- NOTE | 2018-11-18 12:46 | NUR ---
CASE MANAGEMENT: REVIEW SI: CHF . ESRD, HD T 98.0 HR 61 RR 18 BP 159/69 SAT 95% NC/2L WBC 20.4 H/H 11.6/37.0 NA 130 K 5.4 BUN 71 CR 4.7 IS: AMIKACIN IV POST HD AMIKACIN IV X1 LEVOFLOXACIN IV Q48HR HYDRALAZINE PO Q6HR HEPARIN SQ Q12HR HD PRN TELEMETRY UNIT STATUS DCP: PATIENT IS FROM [facility]
--- NOTE | 2018-11-18 13:47 | Surgery Progress Note ---
Surgery Progress Note Subjective Additional Comments persistent leukocytosis Objective Last 24 Hour Vital Signs Date Time Temp Pulse Resp B/P (MAP) Pulse Ox O2 Delivery O2 Flow Rate FiO2 11/18/18 12:00 98.1 82 20 144/58 (86) 95 11/18/18 11:57 20 Nasal Cannula 2.0 28 11/18/18 11:57 Nasal Cannula 2.0 28 11/18/18 10:31 88 159/69 11/18/18 09:00 Nasal Cannula 2.0 11/18/18 08:00 98.0 88 18 159/69 (99) 95 11/18/18 07:50 Nasal Cannula 2.0 28 11/18/18 07:50 74 20 Nasal Cannula 2.0 11/18/18 07:50 74 20 95 Nasal Cannula 2.0 28 11/18/18 07:31 61 11/18/18 06:00 134/72 11/18/18 04:00 98.0 63 19 131/61 (84) 95 11/18/18 03:36 Nasal Cannula 2.0 11/18/18 03:32 63 11/18/18 00:05 Nasal Cannula 11/18/18 00:05 Nasal Cannula 11/18/18 00:00 99.2 67 19 133/65 (87) 98 11/17/18 23:41 65 11/17/18 21:00 Nasal Cannula 2.0 11/17/18 20:00 67 16 127/82 (97) 94 11/17/18 19:44 67 11/17/18 19:10 Nasal Cannula 11/17/18 19:10 Nasal Cannula 11/17/18 19:10 Nasal Cannula 2.0 11/17/18 17:14 131/75 11/17/18 17:08 69 131/75 (93) 92 11/17/18 15:56 70 11/17/18 13:50 71 20 98 Nasal Cannula 2.0 28 11/17/18 13:46 71 20 94 Nasal Cannula 2.0 28 I&O Intake and Output 11/17/18 11/18/18 18:59 06:59 Intake Total 480 ml 2120 ml Balance 480 ml 2120 ml Intake Oral 480 ml 120 ml Hemodialysis 2000 ml # Bowel Movements 5 Dressing: saturated Wound: other Drains: other Cardiovascular: RSR Respiratory: clear, decreased breath sounds Abdomen: soft, present bowel sounds, other Extremities: other Laboratory Tests Test 11/18/18 09:15 White Blood Count 20.4 K/UL (4.8-10.8) H Red Blood Count 3.53 M/UL (4.70-6.10) L Hemoglobin 11.6 G/DL (14.2-18.0) L Hematocrit 37.0 % (42.0-52.0) L Mean Corpuscular Volume 105 FL (80-99) H Mean Corpuscular Hemoglobin 32.9 PG (27.0-31.0) H Mean Corpuscular Hemoglobin Concent 31.4 G/DL (32.0-36.0) L Red Cell Distribution Width 15.5 % (11.6-14.8) H Platelet Count 242 K/UL (150-450) Mean Platelet Volume 8.7 FL (6.5-10.1) Neutrophils (%) (Auto) % (45.0-75.0) Lymphocytes (%) (Auto) % (20.0-45.0) Monocytes (%) (Auto) % (1.0-10.0) Eosinophils (%) (Auto) % (0.0-3.0) Basophils (%) (Auto) % (0.0-2.0) Differential Total Cells Counted 100 Neutrophils % (Manual) 93 % (45-75) H Lymphocytes % (Manual) 1 % (20-45) L Monocytes % (Manual) 6 % (1-10) Eosinophils % (Manual) 0 % (0-3) Basophils % (Manual) 0 % (0-2) Band Neutrophils 0 % (0-8) Platelet Estimate Adequate Platelet Morphology Normal Hypochromasia 1+ Anisocytosis 1+ Macrocytosis 1+ Sodium Level 130 MMOL/L (136-145) L Potassium Level 5.4 MMOL/L (3.5-5.1) H Chloride Level 97 MMOL/L (98-107) L Carbon Dioxide Level 27 MMOL/L (21-32) Anion Gap 6 mmol/L (5-15) Blood Urea Nitrogen 71 mg/dL (7-18) H Creatinine 4.7 MG/DL (0.55-1.30) H Estimat Glomerular Filtration Rate 12.5 mL/min (>60) Glucose Level 145 MG/DL (74-106) H Calcium Level 9.6 MG/DL (8.5-10.1) Plan Problems: (1) Decubitus ulcer of right heel, stage 4 Assessment & Plan: Pt presents with full thickness stage 4 ulcer R heel which he has had for months (L)3cm x (W)2.5cm and 1cm deep. moderate slough noted to base of of wound ,otherwise romeo and moist.Bone palpable .(+) maceration along borders.Periwound fluctuant without erythema. 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 Plan: Cleanse R heel wound with Saline.Apply Therahoney to wound. Apply Cavilon Skin Barrier along borders and Periwound.Cover with Abd and wrap with Kerlix Daily and prn. Apply Benzoin Tincture Swab to R 1st metatarsal and wrap with Kerlix Daily and prn. Apply Moisture Barrier Paste to sacral area .Cover with Optifoam drsg .Change every 3 days and prn. Off-load R heel with pillow. Encourage and assist as needed with repositioning at least every 2hours or as tolerated. (2) Hx of BKA (3) Dyspnea (4) Sepsis Assessment & Plan: persistent leukocytosis sepsis labs noted -CT C/A/P ordered Damian Michaels Nov 18, 2018 13:47
[2018-11-18] MEDS ORDERED: NS IV ONE (14:00)
[2018-11-18] MEDS ORDERED: AMIKACIN IV ONE (14:00)
[2018-11-18] MEDS ORDERED: Albuterol ud Inhalation ONE ×2 (15:21→19:50)
[2018-11-18] MEDS ORDERED: Ipratropium 0.02% Inh Soln 2.5ml UD ONE ×2 (15:21→19:50)
[2018-11-18 16:00] VITALS: BP 117/65
[2018-11-18] MEDS ORDERED: Sodium Polystyrene Sulfonate 15gm Powder ORAL ONE (16:00)
[2018-11-18] MEDS: Norco 5mg/325mg tab ORAL PRN (17:37)
--- NOTE | 2018-11-18 18:00 | NUR ---
NURSE NOTES: Right heel dressing was changed.
--- NOTE | 2018-11-18 18:11 | Nephrology Progress Note ---
Assessment/Plan Problem List: (1) ESRD (end stage renal disease) on dialysis (2) Bradycardia (3) Anemia (4) Leukocytosis Assessment (1) ESRD (end stage renal disease) right arm fistula (2) Fluid overload, unspecified (3) Bradycardia (4) Anemia (5) Pleural effusion Plan just done with HD at times refuses care and meds ! adjust BP meds 2D Echo pending stop beta blockers on hydralazin and procardia per consultants Subjective ROS Limited/Unobtainable: No Constitutional: Reports: malaise Objective Objective Last 24 Hour Vital Signs Date Time Temp Pulse Resp B/P (MAP) Pulse Ox O2 Delivery O2 Flow Rate FiO2 11/18/18 15:36 79 22 98 Nasal Cannula 2.0 11/18/18 15:25 75 24 97 Nasal Cannula 2.0 28 11/18/18 12:00 98.1 82 20 144/58 (86) 95 11/18/18 11:57 20 Nasal Cannula 2.0 28 11/18/18 11:57 Nasal Cannula 2.0 28 11/18/18 10:31 88 159/69 11/18/18 09:00 Nasal Cannula 2.0 11/18/18 08:00 98.0 88 18 159/69 (99) 95 11/18/18 07:50 Nasal Cannula 2.0 28 11/18/18 07:50 74 20 Nasal Cannula 2.0 11/18/18 07:50 74 20 95 Nasal Cannula 2.0 28 11/18/18 07:31 61 11/18/18 06:00 134/72 11/18/18 04:00 98.0 63 19 131/61 (84) 95 11/18/18 03:36 Nasal Cannula 2.0 11/18/18 03:32 63 11/18/18 00:05 Nasal Cannula 11/18/18 00:05 Nasal Cannula 11/18/18 00:00 99.2 67 19 133/65 (87) 98 11/17/18 23:41 65 11/17/18 21:00 Nasal Cannula 2.0 11/17/18 20:00 67 16 127/82 (97) 94 11/17/18 19:44 67 11/17/18 19:10 Nasal Cannula 11/17/18 19:10 Nasal Cannula 11/17/18 19:10 Nasal Cannula 2.0 Intake and Output 11/17/18 11/18/18 19:00 07:00 Intake Total 480 ml 2120 ml Balance 480 ml 2120 ml Intake Oral 480 ml 120 ml Hemodialysis 2000 ml # Bowel Movements 5 Laboratory Tests 11/18/18 09:15: White Blood Count 20.4H, Red Blood Count 3.53L, Hemoglobin 11.6L, Hematocrit 37.0L, Mean Corpuscular Volume 105H, Mean Corpuscular Hemoglobin 32.9H, Mean Corpuscular Hemoglobin Concent 31.4L, Red Cell Distribution Width 15.5H, Platelet Count 242, Mean Platelet Volume 8.7, Neutrophils (%) (Auto) , Lymphocytes (%) (Auto) , Monocytes (%) (Auto) , Eosinophils (%) (Auto) , Basophils (%) (Auto) , Differential Total Cells Counted 100, Neutrophils % ( Manual) 93H, Lymphocytes % (Manual) 1L, Monocytes % (Manual) 6, Eosinophils % ( Manual) 0, Basophils % (Manual) 0, Band Neutrophils 0, Platelet Estimate Adequate, Platelet Morphology Normal, Hypochromasia 1+, Anisocytosis 1+, Macrocytosis 1+, Sodium Level 130L, Potassium Level 5.4H, Chloride Level 97L, Carbon Dioxide Level 27, Anion Gap 6, Blood Urea Nitrogen 71H, Creatinine 4.7H, Estimat Glomerular Filtration Rate 12.5, Glucose Level 145H, Calcium Level 9.6 Height (Feet): 5 Height (Inches): 7.00 Weight (Pounds): 159 General Appearance: no apparent distress, other - more interactive Cardiovascular: normal rate Respiratory/Chest: decreased breath sounds Abdomen: soft Objective no change Alessandro Price MD Nov 18, 2018 18:11
--- NOTE | 2018-11-18 19:35 | NUR ---
HAND-OFF: Report given to SONG Leach.
--- NOTE | 2018-11-18 19:50 | NUR ---
NURSE NOTES: patient received. patient awake alert and oriented x3. Patient in no acute distress at this time. patient complains of no pain at this time. patient IV intact patent and asymptomatic. patient bed in lowest position and locked. call light within reach. will continue to monitor.
[2018-11-18 20:00] VITALS: BP 115/72
[2018-11-19] MEDS: Ipratropium 0.02% Inh Soln 2.5ml UD HHN SCH ×4 (03:27→19:53)
[2018-11-19] MEDS: Albuterol ud Inhalation HHN SCH ×4 (03:27→19:54)
[2018-11-19 04:00] VITALS: BP 130/68
[2018-11-19] MEDS ORDERED: AMIKACIN IV SCH ×2 (06:00→20:00)
[2018-11-19] MEDS ORDERED: NS IV SCH ×2 (06:00→20:00)
[2018-11-19] MEDS: HydrALAZINE 10mg Tab ORAL SCH ×3 (06:13→17:33)
[2018-11-19] MEDS: NovoLOG Insulin Flexpen SUBQ SCH ×4 (06:27→20:20)
[2018-11-19 06:51] LABS: HEMATOCRIT 34.8 % (42.0-52.0); HEMOGLOBIN 11.1 G/DL (14.2-18.0); MEAN CORPUSCULAR VOLUME 104 FL (80-99); PLATELET COUNT 198 K/UL (150-450); RED BLOOD COUNT 3.35 M/UL (4.70-6.10); RED CELL DISTRIBUTION WIDTH 14.7 % (11.6-14.8); WHITE BLOOD COUNT 20.6 K/UL (4.8-10.8)
--- NOTE | 2018-11-19 07:22 | NUR ---
HAND-OFF: Report given to jamil osborn.
[2018-11-19 07:25] LABS: PHOSPHORUS 4.9 MG/DL (2.5-4.9)
[2018-11-19 07:30] LABS: ALANINE AMINOTRANSFERASE 15 U/L (12-78); ALBUMIN 2.4 G/DL (3.4-5.0); ALBUMIN/GLOBULIN RATIO 0.4 (1.0-2.7); ALKALINE PHOSPHATASE 189 U/L (46-116); ANION GAP 10 mmol/L (5-15); ASPARTATE AMINO TRANSFERASE 25 U/L (15-37); BILIRUBIN,TOTAL 1.2 MG/DL (0.2-1.0); BLOOD UREA NITROGEN 86 mg/dL (7-18); CALCIUM 9.5 MG/DL (8.5-10.1); CARBON DIOXIDE 27 MMOL/L (21-32); CHLORIDE 95 MMOL/L (98-107); CREATININE 5.3 MG/DL (0.55-1.30); POTASSIUM 5.3 MMOL/L (3.5-5.1); SODIUM 131 MMOL/L (136-145)
[2018-11-19 07:31] LABS: BILIRUBIN,DIRECT 0.7 MG/DL (0.0-0.3)
[2018-11-19 08:00] VITALS: BP 144/61
--- NOTE | 2018-11-19 08:15 | NUR ---
NURSE NOTES: received pt in the bed, awake, alert, vital signs stable, no co pain, no SOB, skin warm and dry to touch, HD today, AV shunt on RT upper arm,bed in low position, call light within reach.
[2018-11-19] MEDS ORDERED: Vancomycin 1gm/D5W 275ml IVPB SCH ×4 (09:00→16:00)
[2018-11-19] MEDS: Nephrovite tab (Rena-Vite) ORAL SCH (09:37)
[2018-11-19] MEDS: Aspirin EC 81mg tab ORAL SCH (09:37)
[2018-11-19] MEDS: Docusate 100mg cap ORAL SCH (09:38)
[2018-11-19] MEDS: Pyridoxine 50mg tab ORAL SCH (09:39)
[2018-11-19] MEDS: Heparin 5000 units/ml inj SUBQ SCH ×2 (09:40→20:12)
--- NOTE | 2018-11-19 10:25 | NUR ---
RADIOLOGY DEPT CHEST X-RAY DONE.-P.DYE
--- NOTE | 2018-11-19 10:34 | General Progress Note ---
Assessment/Plan Problem List: (1) Acute metabolic encephalopathy ICD Codes: G93.41 - Metabolic encephalopathy SNOMED: 32159711, 569676758 (2) MDD (3) Anxiety disorder ICD Codes: F41.9 - Anxiety disorder, unspecified SNOMED: 342078383 Status: stable Assessment/Plan Cymbalta 30mg po qam the pt may not leave ama the pt received a cocktail Subjective Date patient seen: Nov 19, 2018 Neurologic/Psychiatric: Reports: anxiety, depressed, emotional problems Allergies: Coded Allergies: PHENYTOIN (Verified Allergy, Unknown, 10/17/18) Uncoded Allergies: PENICILLIN (Allergy, Mild, 11/17/18) Subjective The pt cont to be noncompliant with care. The pt is less agitated. The pt cont to be irritable Objective Last 24 Hour Vital Signs Date Time Temp Pulse Resp B/P (MAP) Pulse Ox O2 Delivery O2 Flow Rate FiO2 11/19/18 08:29 60 20 98 Nasal Cannula 3.0 32 11/19/18 08:09 60 20 93 Nasal Cannula 3.0 32 11/19/18 08:09 Nasal Cannula 3.0 32 11/19/18 08:08 93 Nasal Cannula 3.0 32 11/19/18 08:00 97.3 62 20 144/61 (88) 97 11/19/18 06:13 130/68 11/19/18 04:00 62 11/19/18 04:00 99.0 66 20 130/68 (88) 95 11/19/18 03:27 Nasal Cannula 11/19/18 03:27 Nasal Cannula 3.0 32 11/19/18 00:00 62 11/19/18 00:00 11/18/18 23:41 115/72 11/18/18 21:00 Nasal Cannula 2.0 Nasal Cannula 2.0 11/18/18 20:29 79 22 98 Nasal Cannula 3.0 32 11/18/18 20:17 Nasal Cannula 3.0 32 11/18/18 20:17 92 Nasal Cannula 3.0 32 11/18/18 20:17 60 22 Nasal Cannula 3.0 32 11/18/18 20:17 60 22 92 Nasal Cannula 3.0 32 11/18/18 20:00 97.2 60 20 115/72 (86) 94 11/18/18 20:00 60 11/18/18 18:07 98.1 2/24/19 16:09 59 11/18/18 16:00 97.7 58 18 117/65 (82) 96 11/18/18 15:36 79 22 98 Nasal Cannula 2.0 11/18/18 15:25 75 24 97 Nasal Cannula 2.0 28 11/18/18 12:00 98.1 82 20 144/58 (86) 95 11/18/18 11:57 20 Nasal Cannula 2.0 28 11/18/18 11:57 Nasal Cannula 2.0 28 11/18/18 11:42 62 Intake and Output 11/18/18 11/19/18 19:00 07:00 Intake Total 360 ml 100 ml Balance 360 ml 100 ml Intake Oral 360 ml 100 ml # Voids 1 # Bowel Movements 5 2 Laboratory Tests 11/19/18 05:05: White Blood Count 20.6H, Red Blood Count 3.35L, Hemoglobin 11.1L, Hematocrit 34.8L, Mean Corpuscular Volume 104H, Mean Corpuscular Hemoglobin 33.2H, Mean Corpuscular Hemoglobin Concent 32.0, Red Cell Distribution Width 14.7, Platelet Count 198, Mean Platelet Volume 7.9, Neutrophils (%) (Auto) , Lymphocytes (%) ( Auto) , Monocytes (%) (Auto) , Eosinophils (%) (Auto) , Basophils (%) (Auto) , Differential Total Cells Counted 100, Neutrophils % (Manual) 86H, Lymphocytes % (Manual) 8L, Monocytes % (Manual) 5, Eosinophils % (Manual) 1, Basophils % ( Manual) 0, Band Neutrophils 0, Platelet Estimate Adequate, Platelet Morphology Normal, Hypochromasia 1+, Anisocytosis 1+, Macrocytosis 1+, Sodium Level 131L, Potassium Level 5.3H, Chloride Level 95L, Carbon Dioxide Level 27, Anion Gap 10 , Blood Urea Nitrogen 86H, Creatinine 5.3H, Estimat Glomerular Filtration Rate 10.9, Glucose Level 83, Calcium Level 9.5, Phosphorus Level 4.9, Magnesium Level 2.6H, Total Bilirubin 1.2H, Direct Bilirubin 0.7H, Aspartate Amino Transf (AST/SGOT) 25, Alanine Aminotransferase (ALT/SGPT) 15, Alkaline Phosphatase 189H , C-Reactive Protein, Quantitative 13.6H, Pro-B-Type Natriuretic Peptide > 66897U, Total Protein 8.4H, Albumin 2.4L, Globulin 6.0, Albumin/Globulin Ratio 0.4L, Random Vancomycin Level 16.8 Height (Feet): 5 Height (Inches): 7.00 Weight (Pounds): 158 General Appearance: WD/WN, no apparent distress, alert Francisco Patel MD Nov 19, 2018 10:34
[2018-11-19] MEDS: Norco 5mg/325mg tab ORAL PRN (10:48)
--- NOTE | 2018-11-19 11:00 | NUR ---
NURSE NOTES: CT abdomen and pelvic done.
--- NOTE | 2018-11-19 11:08 | Diagnostic Imaging Report ---
Indication: 68-year-old shortness of breath history of COPD leukocytosis renal failure Technique: Continuous helical transaxial imaging of the chest, abdomen and pelvis was obtained from the thoracic inlet to the pubic symphysis. No IV contrast was administered. Coronal 2-D reformats were also obtained. Study obtained in a Siemens sensation [address] Total Dose length Product (DLP): 947.[address] Dose Index Volume (CTDIvol): 13.88 mGy Comparison: None Findings: CT CHEST: There is a stent in the SVC. Aorta is moderately calcified. There are extensive calcifications throughout the lungs bilaterally. Findings may be due to old granulomatous disease although the calcification certainly are not specific. There is a small right pleural effusion present. There is dense posterior basilar consolidation on the right which may be due to atelectasis or pneumonia. There is a perihilar infiltrates present. The heart is enlarged. There is prominence of the pulmonary veins likely indicative of pulmonary venous hypertension and mild CHF. Correlate clinically. CT abdomen pelvis: Moderate ascites demonstrated. Kidneys are atrophic. Gallbladder is contracted. Anasarca noted. Umbilical hernia containing ascites noted. Bladder is distended. Extensive vascular calcifications of the aorta as well as a small arteries demonstrated throughout. IMPRESSION: Right basilar consolidation and perihilar infiltrates. Pneumonia certainly a consideration. Correlate clinically. Extensive calcifications throughout the lungs. Consider old granulomatous disease. Moderate to severe ascites. Atrophied kidneys consistent with end-stage renal disease. Extensive vascular disease. SVC stent. Anasarca Umbilical hernia Limited evaluation due to the nonadministration of intravenous contrast The CT scanner at [facility] is accredited by the [employer] and the scans are performed using dose optimization techniques as appropriate to a performed exam including Automatic Exposure control.
--- NOTE | 2018-11-19 11:12 | NUR ---
CASE MANAGEMENT:REVIEW 11/19/18 SI: POSSIBLE SEPSIS CHF. ESRD ON HD WBC+20.6 IS: IV VANCOMYCIN X1 IV AMIKACIN POST HD : TELEMETRY STATUS DCP: FROM [facility]
[2018-11-19 12:00] VITALS: BP 114/79
--- NOTE | 2018-11-19 12:24 | Nephrology Progress Note ---
Assessment/Plan Problem List: (1) ESRD (end stage renal disease) on dialysis (2) Bradycardia (3) Anemia (4) Leukocytosis Assessment (1) ESRD (end stage renal disease) right arm fistula (2) Fluid overload, unspecified (3) Bradycardia (4) Anemia (5) Pleural effusion Plan due HD today- Kayexelate for high K as needed at times refuses care and meds ! adjust BP meds 2D Echo pending stop beta blockers on hydralazin and procardia per consultants Subjective ROS Limited/Unobtainable: No Constitutional: Reports: malaise Objective Objective Last 24 Hour Vital Signs Date Time Temp Pulse Resp B/P (MAP) Pulse Ox O2 Delivery O2 Flow Rate FiO2 11/19/18 12:00 98.2 63 20 114/79 (91) 96 11/19/18 11:34 97.3 11/19/18 09:00 Nasal Cannula 2.0 Nasal Cannula 2.0 11/19/18 09:00 60 144/61 11/19/18 08:29 60 20 98 Nasal Cannula 3.0 32 11/19/18 08:09 60 20 93 Nasal Cannula 3.0 32 11/19/18 08:09 Nasal Cannula 3.0 32 11/19/18 08:08 93 Nasal Cannula 3.0 32 11/19/18 08:00 97.3 62 20 144/61 (88) 97 11/19/18 06:13 130/68 11/19/18 04:00 62 11/19/18 04:00 99.0 66 20 130/68 (88) 95 11/19/18 03:27 Nasal Cannula 11/19/18 03:27 Nasal Cannula 3.0 32 11/19/18 00:00 62 11/19/18 00:00 11/18/18 23:41 115/72 11/18/18 21:00 Nasal Cannula 2.0 Nasal Cannula 2.0 11/18/18 20:29 79 22 98 Nasal Cannula 3.0 32 11/18/18 20:17 Nasal Cannula 3.0 32 11/18/18 20:17 92 Nasal Cannula 3.0 32 11/18/18 20:17 60 22 Nasal Cannula 3.0 32 11/18/18 20:17 60 22 92 Nasal Cannula 3.0 32 11/18/18 20:00 97.2 60 20 115/72 (86) 94 11/18/18 20:00 60 11/18/18 16:09 59 11/18/18 16:00 97.7 58 18 117/65 (82) 96 11/18/18 15:36 79 22 98 Nasal Cannula 2.0 11/18/18 15:25 75 24 97 Nasal Cannula 2.0 28 Intake and Output 11/18/18 11/19/18 19:00 07:00 Intake Total 360 ml 100 ml Balance 360 ml 100 ml Intake Oral 360 ml 100 ml # Voids 1 # Bowel Movements 5 2 Laboratory Tests 11/19/18 05:05: White Blood Count 20.6H, Red Blood Count 3.35L, Hemoglobin 11.1L, Hematocrit 34.8L, Mean Corpuscular Volume 104H, Mean Corpuscular Hemoglobin 33.2H, Mean Corpuscular Hemoglobin Concent 32.0, Red Cell Distribution Width 14.7, Platelet Count 198, Mean Platelet Volume 7.9, Neutrophils (%) (Auto) , Lymphocytes (%) ( Auto) , Monocytes (%) (Auto) , Eosinophils (%) (Auto) , Basophils (%) (Auto) , Differential Total Cells Counted 100, Neutrophils % (Manual) 86H, Lymphocytes % (Manual) 8L, Monocytes % (Manual) 5, Eosinophils % (Manual) 1, Basophils % ( Manual) 0, Band Neutrophils 0, Platelet Estimate Adequate, Platelet Morphology Normal, Hypochromasia 1+, Anisocytosis 1+, Macrocytosis 1+, Sodium Level 131L, Potassium Level 5.3H, Chloride Level 95L, Carbon Dioxide Level 27, Anion Gap 10 , Blood Urea Nitrogen 86H, Creatinine 5.3H, Estimat Glomerular Filtration Rate 10.9, Glucose Level 83, Calcium Level 9.5, Phosphorus Level 4.9, Magnesium Level 2.6H, Total Bilirubin 1.2H, Direct Bilirubin 0.7H, Aspartate Amino Transf (AST/SGOT) 25, Alanine Aminotransferase (ALT/SGPT) 15, Alkaline Phosphatase 189H , C-Reactive Protein, Quantitative 13.6H, Pro-B-Type Natriuretic Peptide > 59063H, Total Protein 8.4H, Albumin 2.4L, Globulin 6.0, Albumin/Globulin Ratio 0.4L, Random Vancomycin Level 16.8 Height (Feet): 5 Height (Inches): 7.00 Weight (Pounds): 158 General Appearance: no apparent distress Objective no change Alessandro Price MD Nov 19, 2018 12:24
--- NOTE | 2018-11-19 12:45 | NUR ---
NURSE NOTES: pt on HD now, continue monitoring.
[2018-11-19] MEDS ORDERED: Sodium Polystyrene Sulfonate 15gm Powder ORAL SCH (12:59)
--- NOTE | 2018-11-19 13:02 | Diagnostic Imaging Report ---
Indication: Dyspnea Comparison: 11/15/2018 A single view chest radiograph was obtained. Findings: Patchy, prominent vascularity and interstitial markings noted throughout the lungs. Heart is enlarged. There is an SVC stent present. Bones are osteopenic. IMPRESSION: Suspected interstitial edema slightly worse
--- NOTE | 2018-11-19 14:33 | Surgery Progress Note ---
Surgery Progress Note Subjective Additional Comments no acute events. leukocytosis. CT reviewed. Objective Last 24 Hour Vital Signs Date Time Temp Pulse Resp B/P (MAP) Pulse Ox O2 Delivery O2 Flow Rate FiO2 11/19/18 14:13 Nasal Cannula 2.0 28 11/19/18 14:12 Nasal Cannula 11/19/18 12:00 114/79 11/19/18 12:00 67 11/19/18 12:00 98.2 63 20 114/79 (91) 96 11/19/18 11:34 97.3 11/19/18 09:00 Nasal Cannula 2.0 Nasal Cannula 2.0 11/19/18 09:00 60 144/61 11/19/18 08:29 60 20 98 Nasal Cannula 3.0 32 11/19/18 08:09 60 20 93 Nasal Cannula 3.0 32 11/19/18 08:09 Nasal Cannula 3.0 32 11/19/18 08:08 93 Nasal Cannula 3.0 32 11/19/18 08:00 97.3 62 20 144/61 (88) 97 11/19/18 08:00 71 11/19/18 06:13 130/68 11/19/18 04:00 62 11/19/18 04:00 99.0 66 20 130/68 (88) 95 11/19/18 03:27 Nasal Cannula 11/19/18 03:27 Nasal Cannula 3.0 32 11/19/18 00:00 62 11/19/18 00:00 11/18/18 23:41 115/72 11/18/18 21:00 Nasal Cannula 2.0 Nasal Cannula 2.0 11/18/18 20:29 79 22 98 Nasal Cannula 3.0 32 11/18/18 20:17 Nasal Cannula 3.0 32 11/18/18 20:17 92 Nasal Cannula 3.0 32 11/18/18 20:17 60 22 Nasal Cannula 3.0 32 11/18/18 20:17 60 22 92 Nasal Cannula 3.0 32 11/18/18 20:00 97.2 60 20 115/72 (86) 94 11/18/18 20:00 60 11/18/18 16:09 59 11/18/18 16:00 97.7 58 18 117/65 (82) 96 11/18/18 15:36 79 22 98 Nasal Cannula 2.0 11/18/18 15:25 75 24 97 Nasal Cannula 2.0 28 I&O Intake and Output 11/18/18 11/19/18 18:59 06:59 Intake Total 360 ml 100 ml Balance 360 ml 100 ml Intake Oral 360 ml 100 ml # Voids 1 # Bowel Movements 5 2 Dressing: other Wound: other Drains: other Cardiovascular: RSR Respiratory: decreased breath sounds Abdomen: soft, present bowel sounds Extremities: no cyanosis Laboratory Tests Test 11/19/18 05:05 White Blood Count 20.6 K/UL (4.8-10.8) H Red Blood Count 3.35 M/UL (4.70-6.10) L Hemoglobin 11.1 G/DL (14.2-18.0) L Hematocrit 34.8 % (42.0-52.0) L Mean Corpuscular Volume 104 FL (80-99) H Mean Corpuscular Hemoglobin 33.2 PG (27.0-31.0) H Mean Corpuscular Hemoglobin Concent 32.0 G/DL (32.0-36.0) Red Cell Distribution Width 14.7 % (11.6-14.8) Platelet Count 198 K/UL (150-450) Mean Platelet Volume 7.9 FL (6.5-10.1) Neutrophils (%) (Auto) % (45.0-75.0) Lymphocytes (%) (Auto) % (20.0-45.0) Monocytes (%) (Auto) % (1.0-10.0) Eosinophils (%) (Auto) % (0.0-3.0) Basophils (%) (Auto) % (0.0-2.0) Differential Total Cells Counted 100 Neutrophils % (Manual) 86 % (45-75) H Lymphocytes % (Manual) 8 % (20-45) L Monocytes % (Manual) 5 % (1-10) Eosinophils % (Manual) 1 % (0-3) Basophils % (Manual) 0 % (0-2) Band Neutrophils 0 % (0-8) Platelet Estimate Adequate Platelet Morphology Normal Hypochromasia 1+ Anisocytosis 1+ Macrocytosis 1+ Sodium Level 131 MMOL/L (136-145) L Potassium Level 5.3 MMOL/L (3.5-5.1) H Chloride Level 95 MMOL/L (98-107) L Carbon Dioxide Level 27 MMOL/L (21-32) Anion Gap 10 mmol/L (5-15) Blood Urea Nitrogen 86 mg/dL (7-18) H Creatinine 5.3 MG/DL (0.55-1.30) H Estimat Glomerular Filtration Rate 10.9 mL/min (>60) Glucose Level 83 MG/DL (74-106) Calcium Level 9.5 MG/DL (8.5-10.1) Phosphorus Level 4.9 MG/DL (2.5-4.9) Magnesium Level 2.6 MG/DL (1.8-2.4) H Total Bilirubin 1.2 MG/DL (0.2-1.0) H Direct Bilirubin 0.7 MG/DL (0.0-0.3) H Aspartate Amino Transf (AST/SGOT) 25 U/L (15-37) Alanine Aminotransferase (ALT/SGPT) 15 U/L (12-78) Alkaline Phosphatase 189 U/L (46-116) H C-Reactive Protein, Quantitative 13.6 mg/dL (0.00-0.90) H Pro-B-Type Natriuretic Peptide > 45922 pg/mL (0-125) H Total Protein 8.4 G/DL (6.4-8.2) H Albumin 2.4 G/DL (3.4-5.0) L Globulin 6.0 g/dL Albumin/Globulin Ratio 0.4 (1.0-2.7) L Random Vancomycin Level 16.8 ug/mL Plan Problems: (1) Decubitus ulcer of right heel, stage 4 Assessment & Plan: Pt presents with full thickness stage 4 ulcer R heel which he has had for months (L)3cm x (W)2.5cm and 1cm deep. moderate slough noted to base of of wound ,otherwise romeo and moist.Bone palpable .(+) maceration along borders.Periwound fluctuant without erythema. 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 Plan: Cleanse R heel wound with Saline.Apply Therahoney to wound. Apply Cavilon Skin Barrier along borders and Periwound.Cover with Abd and wrap with Kerlix Daily and prn. Apply Benzoin Tincture Swab to R 1st metatarsal and wrap with Kerlix Daily and prn. Apply Moisture Barrier Paste to sacral area .Cover with Optifoam drsg .Change every 3 days and prn. Off-load R heel with pillow. Encourage and assist as needed with repositioning at least every 2hours or as tolerated. (2) Hx of BKA (3) Dyspnea (4) Sepsis Assessment & Plan: persistent leukocytosis sepsis labs noted Right basilar consolidation and perihilar infiltrates. Pneumonia certainly a consideration. Correlate clinically. Extensive calcifications throughout the lungs. Consider old granulomatous disease. Moderate to severe ascites. Atrophied kidneys consistent with end-stage renal disease. Extensive vascular disease. SVC stent. Anasarca Umbilical hernia Cont Abx; likely pna Damian Michaels Nov 19, 2018 14:33
--- NOTE | 2018-11-19 14:57 | General Progress Note ---
Assessment/Plan Assessment/Plan #Acute hypoxic respiratory failure #Fluid overload -stable resp status -plan for another HD today -continue current psychotropics -psychiatry followup tomorrow -continue to monitor BMP, renal function #Leukocytosis #Sepsis #HCAP, gram negative pneumonia -continue broad spectrum antibiotics -ID eval appreciated #Non-compliance with HD and medications #Depression #Mood disorder #lacks decision making capacity per psychiatry -continue current psychotropics -psychiatry followup I spent 45 minutes on this patient's case, and 25 minutes was dedicated to counseling and/or care coordination. Subjective Date patient seen: Nov 19, 2018 Time patient seen: 13:00 ROS Limited/Unobtainable: Yes Cardiovascular: Denies: chest pain Respiratory: Denies: cough Gastrointestinal/Abdominal: Denies: abdomen distended, abdominal pain Allergies: Coded Allergies: PHENYTOIN (Verified Allergy, Unknown, 10/17/18) Uncoded Allergies: PENICILLIN (Allergy, Mild, 11/17/18) Subjective Medicine follow up for acute hypoxic respiratory failure, fluid overload, noncompliance with HD, HCAP Somewhat more compliant CT chest showing right basilar consolidation and perihilar infiltrates Objective Last 24 Hour Vital Signs Date Time Temp Pulse Resp B/P (MAP) Pulse Ox O2 Delivery O2 Flow Rate FiO2 11/19/18 14:13 Nasal Cannula 2.0 28 11/19/18 14:12 Nasal Cannula 11/19/18 12:00 114/79 11/19/18 12:00 67 11/19/18 12:00 98.2 63 20 114/79 (91) 96 11/19/18 11:34 97.3 11/19/18 09:00 Nasal Cannula 2.0 Nasal Cannula 2.0 11/19/18 09:00 60 144/61 11/19/18 08:29 60 20 98 Nasal Cannula 3.0 32 11/19/18 08:09 60 20 93 Nasal Cannula 3.0 32 11/19/18 08:09 Nasal Cannula 3.0 32 11/19/18 08:08 93 Nasal Cannula 3.0 32 11/19/18 08:00 97.3 62 20 144/61 (88) 97 11/19/18 08:00 71 11/19/18 06:13 130/68 11/19/18 04:00 62 11/19/18 04:00 99.0 66 20 130/68 (88) 95 11/19/18 03:27 Nasal Cannula 11/19/18 03:27 Nasal Cannula 3.0 32 11/19/18 00:00 62 11/19/18 00:00 11/18/18 23:41 115/72 11/18/18 21:00 Nasal Cannula 2.0 Nasal Cannula 2.0 11/18/18 20:29 79 22 98 Nasal Cannula 3.0 32 11/18/18 20:17 Nasal Cannula 3.0 32 11/18/18 20:17 92 Nasal Cannula 3.0 32 11/18/18 20:17 60 22 Nasal Cannula 3.0 32 11/18/18 20:17 60 22 92 Nasal Cannula 3.0 32 11/18/18 20:00 97.2 60 20 115/72 (86) 94 11/18/18 20:00 60 11/18/18 16:09 59 11/18/18 16:00 97.7 58 18 117/65 (82) 96 11/18/18 15:36 79 22 98 Nasal Cannula 2.0 11/18/18 15:25 75 24 97 Nasal Cannula 2.0 28 Intake and Output 11/18/18 11/19/18 18:59 06:59 Intake Total 360 ml 100 ml Balance 360 ml 100 ml Intake Oral 360 ml 100 ml # Voids 1 # Bowel Movements 5 2 Laboratory Tests 11/19/18 05:05: White Blood Count 20.6H, Red Blood Count 3.35L, Hemoglobin 11.1L, Hematocrit 34.8L, Mean Corpuscular Volume 104H, Mean Corpuscular Hemoglobin 33.2H, Mean Corpuscular Hemoglobin Concent 32.0, Red Cell Distribution Width 14.7, Platelet Count 198, Mean Platelet Volume 7.9, Neutrophils (%) (Auto) , Lymphocytes (%) ( Auto) , Monocytes (%) (Auto) , Eosinophils (%) (Auto) , Basophils (%) (Auto) , Differential Total Cells Counted 100, Neutrophils % (Manual) 86H, Lymphocytes % (Manual) 8L, Monocytes % (Manual) 5, Eosinophils % (Manual) 1, Basophils % ( Manual) 0, Band Neutrophils 0, Platelet Estimate Adequate, Platelet Morphology Normal, Hypochromasia 1+, Anisocytosis 1+, Macrocytosis 1+, Sodium Level 131L, Potassium Level 5.3H, Chloride Level 95L, Carbon Dioxide Level 27, Anion Gap 10 , Blood Urea Nitrogen 86H, Creatinine 5.3H, Estimat Glomerular Filtration Rate 10.9, Glucose Level 83, Calcium Level 9.5, Phosphorus Level 4.9, Magnesium Level 2.6H, Total Bilirubin 1.2H, Direct Bilirubin 0.7H, Aspartate Amino Transf (AST/SGOT) 25, Alanine Aminotransferase (ALT/SGPT) 15, Alkaline Phosphatase 189H , C-Reactive Protein, Quantitative 13.6H, Pro-B-Type Natriuretic Peptide > 01583X, Total Protein 8.4H, Albumin 2.4L, Globulin 6.0, Albumin/Globulin Ratio 0.4L, Random Vancomycin Level 16.8 Height (Feet): 5 Height (Inches): 7.00 Weight (Pounds): 158 General Appearance: alert Neck: normal alignment Cardiovascular: normal rate, regular rhythm Respiratory/Chest: lungs clear, normal breath sounds Shivam Plascencia MD Nov 19, 2018 14:57
--- NOTE | 2018-11-19 15:31 | NUR ---
NURSE NOTES: initial wound assessment done today 11/19/18, accidently on Saturdays assessment.
[2018-11-19 16:00] VITALS: BP 138/79
--- NOTE | 2018-11-19 18:21 | Infectious Diseases Prog Note ---
Assessment/Plan Assessment/Plan Full consult dictated: A) 1) possible sepsis, leukocytosis 2) CT - c/w right pna, report noted 3) right heel wound noted, ? infected, ? osteomyelitis 4) esrd, hd, pmh noted 5) allergies - pcn, phenytoin P) 1) levofloxacin and vancomycin, add amikacin 2) check sc, labs, cultures, chest x-ray 3) x-ray right foot/heel to rule osteomyelitis, check sed rate 4) continue per primary and consultants 5) will f/u Subjective Constitutional: Denies: fever HEENT: Denies: congestion Respiratory: Denies: shortness of breath Cardiovascular: Denies: chest pain Gastrointestinal/Abdominal: Denies: nausea, vomiting, diarrhea Allergies: Coded Allergies: PHENYTOIN (Verified Allergy, Unknown, 10/17/18) Uncoded Allergies: PENICILLIN (Allergy, Mild, 11/17/18) Objective Vital Signs Last 24 Hour Vital Signs Date Time Temp Pulse Resp B/P (MAP) Pulse Ox O2 Delivery O2 Flow Rate FiO2 11/19/18 17:33 138/79 11/19/18 16:00 67 11/19/18 16:00 97.7 67 20 138/79 (98) 96 11/19/18 14:13 Nasal Cannula 2.0 28 11/19/18 14:12 Nasal Cannula 11/19/18 12:00 114/79 11/19/18 12:00 67 11/19/18 12:00 98.2 63 20 114/79 (91) 96 11/19/18 11:34 97.3 11/19/18 09:00 Nasal Cannula 2.0 Nasal Cannula 2.0 11/19/18 09:00 60 144/61 11/19/18 08:29 60 20 98 Nasal Cannula 3.0 32 11/19/18 08:09 60 20 93 Nasal Cannula 3.0 32 11/19/18 08:09 Nasal Cannula 3.0 32 11/19/18 08:08 93 Nasal Cannula 3.0 32 11/19/18 08:00 97.3 62 20 144/61 (88) 97 11/19/18 08:00 71 11/19/18 06:13 130/68 11/19/18 04:00 62 11/19/18 04:00 99.0 66 20 130/68 (88) 95 11/19/18 03:27 Nasal Cannula 11/19/18 03:27 Nasal Cannula 3.0 32 11/19/18 00:00 62 11/19/18 00:00 11/18/18 23:41 115/72 11/18/18 21:00 Nasal Cannula 2.0 Nasal Cannula 2.0 11/18/18 20:29 79 22 98 Nasal Cannula 3.0 32 11/18/18 20:17 Nasal Cannula 3.0 32 11/18/18 20:17 92 Nasal Cannula 3.0 32 11/18/18 20:17 60 22 Nasal Cannula 3.0 32 11/18/18 20:17 60 22 92 Nasal Cannula 3.0 32 11/18/18 20:00 97.2 60 20 115/72 (86) 94 11/18/18 20:00 60 Height (Feet): 5 Height (Inches): 7.00 Weight (Pounds): 158 General Appearance: no acute distress HEENT: normocephalic, atraumatic, anicteric Respiratory/Chest: crackles/rales, rhonchi - bilaterally Cardiovascular: normal rate, regular rhythm Abdomen: normal bowel sounds, soft, non tender, no organomegaly Laboratory Tests Test 11/19/18 05:05 White Blood Count 20.6 K/UL (4.8-10.8) H Red Blood Count 3.35 M/UL (4.70-6.10) L Hemoglobin 11.1 G/DL (14.2-18.0) L Hematocrit 34.8 % (42.0-52.0) L Mean Corpuscular Volume 104 FL (80-99) H Mean Corpuscular Hemoglobin 33.2 PG (27.0-31.0) H Mean Corpuscular Hemoglobin Concent 32.0 G/DL (32.0-36.0) Red Cell Distribution Width 14.7 % (11.6-14.8) Platelet Count 198 K/UL (150-450) Mean Platelet Volume 7.9 FL (6.5-10.1) Neutrophils (%) (Auto) % (45.0-75.0) Lymphocytes (%) (Auto) % (20.0-45.0) Monocytes (%) (Auto) % (1.0-10.0) Eosinophils (%) (Auto) % (0.0-3.0) Basophils (%) (Auto) % (0.0-2.0) Differential Total Cells Counted 100 Neutrophils % (Manual) 86 % (45-75) H Lymphocytes % (Manual) 8 % (20-45) L Monocytes % (Manual) 5 % (1-10) Eosinophils % (Manual) 1 % (0-3) Basophils % (Manual) 0 % (0-2) Band Neutrophils 0 % (0-8) Platelet Estimate Adequate Platelet Morphology Normal Hypochromasia 1+ Anisocytosis 1+ Macrocytosis 1+ Sodium Level 131 MMOL/L (136-145) L Potassium Level 5.3 MMOL/L (3.5-5.1) H Chloride Level 95 MMOL/L (98-107) L Carbon Dioxide Level 27 MMOL/L (21-32) Anion Gap 10 mmol/L (5-15) Blood Urea Nitrogen 86 mg/dL (7-18) H Creatinine 5.3 MG/DL (0.55-1.30) H Estimat Glomerular Filtration Rate 10.9 mL/min (>60) Glucose Level 83 MG/DL (74-106) Calcium Level 9.5 MG/DL (8.5-10.1) Phosphorus Level 4.9 MG/DL (2.5-4.9) Magnesium Level 2.6 MG/DL (1.8-2.4) H Total Bilirubin 1.2 MG/DL (0.2-1.0) H Direct Bilirubin 0.7 MG/DL (0.0-0.3) H Aspartate Amino Transf (AST/SGOT) 25 U/L (15-37) Alanine Aminotransferase (ALT/SGPT) 15 U/L (12-78) Alkaline Phosphatase 189 U/L (46-116) H C-Reactive Protein, Quantitative 13.6 mg/dL (0.00-0.90) H Pro-B-Type Natriuretic Peptide > 20069 pg/mL (0-125) H Total Protein 8.4 G/DL (6.4-8.2) H Albumin 2.4 G/DL (3.4-5.0) L Globulin 6.0 g/dL Albumin/Globulin Ratio 0.4 (1.0-2.7) L Random Vancomycin Level 16.8 ug/mL Current Medications Medications (Trade) Dose Ordered Sig/Ronald Route PRN Reason Start Time Stop Time Status Last Admin Dose Admin Acetaminophen/ Hydrocodone Bitart ([place] 5/325) 1 tab Q4H PRN ORAL Severe Pain (Pain Scale 7-10) 11/16/18 11:00 11/23/18 10:59 11/19/18 10:48 Albuterol Sulfate (Proventil) 2.5 mg Q6HR HHN 11/16/18 06:00 11/21/18 05:59 11/19/18 08:10 Amikacin Protocol (Amikacin pharmacy to dose) 1 ea DAILY PRN MISC Per rx protocol 11/18/18 12:15 12/18/18 12:14 Amikacin Sulfate 200 mg/Sodium Chloride 55.8 ml @ 110 mls/hr POSTHD@2000 IV 11/19/18 20:00 11/26/18 19:59 Amlodipine Besylate (Norvasc) 10 mg DAILY ORAL 11/17/18 09:00 12/17/18 08:59 11/18/18 10:31 Aspirin (Ecotrin) 81 mg DAILY ORAL 11/17/18 09:00 12/17/18 08:59 11/19/18 09:37 Dextrose (Dextrose 50%) 25 ml Q30M PRN IV Hypoglycemia 11/16/18 08:15 12/16/18 08:14 Dextrose (Dextrose 50%) 50 ml Q30M PRN IV Hypoglycemia 11/16/18 08:15 12/16/18 08:14 Diphenhydramine HCl (Benadryl) 50 mg Q6H PRN IM itching 11/16/18 10:30 12/16/18 10:29 11/16/18 10:58 Docusate Sodium (Colace) 200 mg DAILY ORAL 11/17/18 09:00 12/17/18 08:59 11/19/18 09:38 Duloxetine HCl (Cymbalta) 40 mg DAILY ORAL 11/20/18 09:00 12/20/18 08:59 Haloperidol Lactate (Haldol) 5 mg Q6H PRN IM Agitation 11/16/18 10:30 12/16/18 10:29 11/18/18 11:46 Heparin Sodium (Porcine) (Heparin 5000 units/ml) 5,000 units EVERY 12 HOURS SUBQ 11/16/18 21:00 12/16/18 20:59 11/19/18 09:40 Hydralazine HCl (Apresoline) 10 mg Q6HR ORAL 11/16/18 18:00 12/16/18 17:59 11/19/18 17:33 Insulin Aspart (NovoLOG) BEFORE MEALS AND HS SUBQ 11/16/18 11:30 12/16/18 11:29 11/18/18 20:19 Ipratropium [place] (Atrovent) 0.5 mcg Q6HR HHN 11/16/18 06:00 11/21/18 05:59 11/19/18 08:10 Levofloxacin 100 ml @ 100 mls/hr Q48H IVPB 11/17/18 23:00 11/24/18 22:59 11/18/18 00:04 Lorazepam (Ativan 2mg/ml 1ml) 2 mg Q4H PRN IM For Anxiety 11/16/18 10:30 11/23/18 10:29 11/16/18 10:58 Pyridoxine HCl (Vitamin B6) 25 mg DAILY ORAL 11/17/18 09:00 12/17/18 08:59 11/19/18 09:39 Sevelamer Carbonate (Renvela) 1,600 mg THREE TIMES A DAY ORAL 11/17/18 18:00 12/16/18 12:59 11/19/18 17:33 Tramadol HCl (Ultram) 50 mg Q6H PRN ORAL Moderate Pain (Pain Scale 4-6) 11/16/18 11:00 11/23/18 10:59 Vancomycin HCl (Vanco rx to dose) 1 ea DAILY PRN MISC Per rx protocol 11/16/18 08:15 12/16/18 08:14 Vancomycin HCl 1 gm/Dextrose 275 ml @ 183.708 mls/hr ONCE IVPB 11/19/18 16:00 11/19/18 20:00 11/19/18 16:01 Vitamin B Complex/ Vit C/Folic Acid (Nephrovite) 1 tab DAILY ORAL 11/17/18 09:00 12/17/18 08:59 11/19/18 09:37 Anshu Munguia MD Nov 19, 2018 18:21
--- NOTE | 2018-11-19 18:37 | NUR ---
NURSE NOTES: HD done, pt tolerate well, 2000cc out.
--- NOTE | 2018-11-19 19:21 | NUR ---
HAND-OFF: Report given to ALONDRA ZULETA.
--- NOTE | 2018-11-19 19:22 | NUR ---
NURSE NOTES: Got report from Anaid ZULETA. Pt in stable condition. Denies any pain. no s/s of distress or discomfort noted. Pt resting in bed comfortably. Bed in low and locked position, call light within reach, bedside table within reach. Continue to monitor.
[2018-11-19 20:00] VITALS: BP 135/71
--- NOTE | 2018-11-19 21:00 | Consultation ---
DATE OF CONSULTATION: 11/19/2018 INFECTIOUS DISEASE CONSULTATION CONSULTING PHYSICIAN: Anshu Munguia M.D. ATTENDING PHYSICIAN: Pam Andrade M.D. REFERRING PHYSICIAN: Shivam Limon M.D. REASON FOR CONSULTATION: Possible sepsis, elevated white count, pneumonia, possible right heel infected wound. CHIEF COMPLAINT: The patient's chief complaint coming in the hospital was shortness of breath, CHF. HISTORY OF PRESENT ILLNESS: This is a 68-year-old male who comes in to [facility] with shortness of breath and was noted to have on chest x-ray CHF initially, interstitial edema, also had what looks like nodular infiltrates. The patient was also noted to have elevated white count and possible sepsis. The patient was placed on amikacin, Levaquin, and vancomycin. Cultures are pending at this time. Blood cultures are negative to date. The patient is also colonized with VRE. CT scan of the abdomen, pelvis, and the chest showed the following. It showed right basilar consolidation and perihilar infiltrates consistent with pneumonia. Infectious Diseases consultation was requested for antibiotic management. The patient will be continued on vancomycin, Levaquin, and amikacin for now pending workup. The patient also has a right heel/foot wound that is being debrided and seen by Surgery. REVIEW OF SYSTEMS: CONSTITUTIONAL: The patient has generalized fatigue, but no new focal weakness. HEAD AND NECK: No head pain, neck pain, or neck stiffness. No dysphagia. CARDIAC: No chest pain or palpitations. GASTROINTESTINAL: No nausea, vomiting, abdominal pain, or diarrhea. GENITOURINARY: He is hemodialysis patient. He has no Molina. No CVA tenderness. PULMONARY: Mild cough and congestion. He did come in with shortness of breath, cough, and congestion. No significant secretions currently. No hemoptysis or secretions. SKIN: No rash or itching. EXTREMITIES: No extremity pain. NEUROLOGIC: No seizures. Generalized fatigue and weakness. There are no focal changes. PAST MEDICAL HISTORY: Includes the following. The patient has past medical history of end-stage renal disease, on hemodialysis. The patient has past medical history of CHF, also COPD, MDD, history of decubitus ulcer of the right heel, history of anxiety disorder, history of anemia, history of pleural effusions, history of BKA on the left. History of chronic disease, delirium, he does have history of hypertension and diabetes. Peripheral vascular disease. ALLERGIES: Include penicillin and phenytoin. FAMILY HISTORY: Noncontributory. Negative for exposure to tuberculosis or cancer. SOCIAL HISTORY: He is negative for smoking, alcohol, or drug abuse. MEDICATIONS: Upon reviewing the MAR, he is on the following medications. He is on amikacin, vancomycin. He is on duloxetine. He is on Levaquin. He is on sevelamer, aspirin, docusate, pyridoxine, vitamin B, amlodipine, heparin, hydralazine, insulin, hydrocodone, tramadol, haloperidol, lorazepam, diphenhydramine, albuterol, breathing treatments . Outside medications were reviewed and reconciliated. PHYSICAL EXAMINATION: VITAL SIGNS: Temperature 97.7, pulse rate 67, respiratory rate 20, blood pressure 138/79, saturation 96%. GENERAL: Alert, responsive, in no acute distress, seems to be agitated. HEAD AND NECK: Oral exam, no thrush. Eye exam, no icterus. Neck is supple. No JVD. Normocephalic. HEART: Regular. No obvious gallop or murmur. No friction rub. ABDOMEN: Soft. Positive bowel sounds. Nontender. No organomegaly. LUNGS: Few bilateral rhonchi and possible rales on the right. SKIN: No rash or dermatitis. MUSCULOSKELETAL: He has left leg amputation. Right knee without effusion. Right leg without cellulitis. PERIPHERAL VASCULAR: He has right foot ulcer noted. No gangrene, but he does have right foot wound and ulcer. There is some slough noted. NEUROLOGIC: Intact. Alert and oriented x3. He is alert and responsive. LINES: Line sites without phlebitis. GENITOURINARY: No CVA tenderness. No Molina. LABORATORY AND DIAGNOSTIC DATA: Laboratory data as follows. White count 20.6, hemoglobin 11.1. Creatinine 5.3. White count has been as high as 25.1. Lactic acid was normal. VRE screen is positive, MRSA screen is negative. Influenza screen is negative. Blood cultures are negative. Wound culture of the right heel has been ordered. Sputum culture has been ordered and pending. Imaging studies, the patient's CT scan of the chest, abdomen, and pelvis showed contracted gallbladder, showed a right basilar consolidation, perihilar infiltrates, ascites [id number], no abscess. ASSESSMENT AND PLAN: 1. The patient has possible sepsis. The patient has significant leukocytosis of over 20,000. It is unclear if the patient has underlying sepsis. He has no fevers. He does look like he does have community-acquired pneumonia, but certainly is at risk for healthcare-acquired pneumonia with history of dialysis. I believe he comes from a group home facility also. Most likely, if the patient is septic, it is likely a pulmonary source including pneumonia. He does have a right heel/foot ulcer, however, I do not think this is the reason why his white count is elevated. We will rule out osteo and infected wound. We will get a wound culture of the right heel and get x-ray of the right foot to rule out osteo of the right heel and foot. At this time, we will continue amikacin, vancomycin, and Levaquin to cover pneumonia and sepsis including community-acquired pneumonia with Levaquin and sepsis with vancomycin and amikacin. This will also cover MRSA, gram-negative pneumonia if the patient has that. Continue antibiotics of vancomycin, amikacin, and Flagyl. Check final blood cultures and wound culture of right heel. Follow up chest x-ray and laboratories. CT scan did not show any obvious abscess. 2. Right heel wound. Continue treatment per Surgery. We will get x-ray to rule out osteo. Check sedimentation rate. 3. The patient has ascites. Defer further management per primary. There is no abdominal pain associated to suggest spontaneous bacterial peritonitis. Consider GI evaluation for possible paracentesis. 4. End-stage renal disease, on hemodialysis. Treatment per Renal Medicine. 5. CHF. 6. COPD. 7. MDD. 8. Wound care protocol and surgery. 9. Anxiety. 10. Anemia. 11. Pleural effusion. 12. History of left BKA, per Vascular Disease. 13. Diabetes and hypertension. Per primary. 14. History of bradycardia. 15. Allergy to penicillin and phenytoin. 16. Family history noncontributory. 17. Social history negative. 18. MAR was noted. 19. Case discussed with RN. 20. Continue treatment per primary consultants. Anshu Munguia M.D. DR: Alisson JOB#: [id number] CC:
[2018-11-20] VITALS: BP 132/80
[2018-11-20] MEDS: Albuterol ud Inhalation HHN SCH ×4 (01:57→19:52)
[2018-11-20] MEDS: Ipratropium 0.02% Inh Soln 2.5ml UD HHN SCH ×4 (01:57→19:00)
[2018-11-20 04:19] VITALS: BP 139/78
[2018-11-20] MEDS: HydrALAZINE 10mg Tab ORAL SCH ×4 (06:10→18:00)
[2018-11-20] MEDS: NovoLOG Insulin Flexpen SUBQ SCH ×4 (06:18→21:00)
--- NOTE | 2018-11-20 07:20 | NUR ---
HAND-OFF: Report given to Palomo ZULETA. Endorsed plan of care.
[2018-11-20 08:07] VITALS: BP 116/62
--- NOTE | 2018-11-20 08:29 | NUR ---
NURSE NOTES: Pt in bed in low position, bed alarm on, HOB in semifowlers, breakfast at bedside, pt calm and cooperative but needy, Pt Ox2, 2 rails up, pt denies pain, pt on 2L NC continuous, IV site LT F 22 asymptomatic and locked, HD yesterday with 2L out, no s/s of distress or sob noted.
--- NOTE | 2018-11-20 09:14 | NUR ---
DISCHARGE PLANNING [facility]ILL[facility]AL PATIENT IS NOT MEDICALLY READY FOR DISCHARGE
[2018-11-20] MEDS: Aspirin EC 81mg tab ORAL SCH (09:16)
[2018-11-20] MEDS: Nephrovite tab (Rena-Vite) ORAL SCH (09:16)
[2018-11-20] MEDS: Docusate 100mg cap ORAL SCH (09:17)
[2018-11-20] MEDS: Pyridoxine 50mg tab ORAL SCH (09:17)
[2018-11-20] MEDS: Heparin 5000 units/ml inj SUBQ SCH ×2 (09:18→21:04)
--- NOTE | 2018-11-20 10:00 | NUR ---
RADIOLOGY DEPT RIGHT FOOT X-RAY DONE.-P.DYE
[2018-11-20 11:15] LABS: HEMATOCRIT 32.4 % (42.0-52.0); HEMOGLOBIN 10.1 G/DL (14.2-18.0); MEAN CORPUSCULAR VOLUME 105 FL (80-99); PLATELET COUNT 187 K/UL (150-450); RED BLOOD COUNT 3.09 M/UL (4.70-6.10); RED CELL DISTRIBUTION WIDTH 15.2 % (11.6-14.8)
[2018-11-20 11:19] LABS: WHITE BLOOD COUNT 31.3 K/UL (4.8-10.8)
[2018-11-20 11:42] LABS: ALANINE AMINOTRANSFERASE 11 U/L (12-78); ALBUMIN 2.1 G/DL (3.4-5.0); ALBUMIN/GLOBULIN RATIO 0.4 (1.0-2.7); ALKALINE PHOSPHATASE 152 U/L (46-116); ANION GAP 8 mmol/L (5-15); ASPARTATE AMINO TRANSFERASE 13 U/L (15-37); BILIRUBIN,TOTAL 1.2 MG/DL (0.2-1.0); BLOOD UREA NITROGEN 68 mg/dL (7-18); CALCIUM 8.8 MG/DL (8.5-10.1); CARBON DIOXIDE 29 MMOL/L (21-32); CHLORIDE 95 MMOL/L (98-107); CREATININE 4.8 MG/DL (0.55-1.30); SODIUM 132 MMOL/L (136-145)
[2018-11-20 11:44] LABS: BILIRUBIN,DIRECT 0.8 MG/DL (0.0-0.3)
--- NOTE | 2018-11-20 11:47 | NUR ---
RD ASSESSMENT & RECOMMENDATIONS SEE CARE ACTIVITY FOR COMPLETE ASSESSMENT DAILY ESTIMATED NEEDS: Needs based on ESRD on HD, stage 4 wound 55.5kg 30-35 kcals/kg 2088-7480 total kcals 1.5-2.0 g protein/kg 83-111 g total protein Fluid per MD, on HD NUTRITION DIAGNOSIS: * Increased kcal and protein needs r/t wound healing and renal dysfunction as evidenced by pt w/ stage 4 R heel wound, w/ ESRD on HD. CURRENT DIET:RENAL PO DIET RECOMMENDATIONS: RENAL DIET (texture as tolerated) ADDITIONAL RECOMMENDATIONS: 1) Wound healing: Nephrovite x 1, Sy 1pkt BID : ZnSO4 220mg QD x 10 days 2) Monitor PO intake, variable appetite at this time 3) Add Nepro 1 tetra david BID in b/w meals 4) Monitor lytes- K elev 5) Monitor BGs, need for carb controlled diet
--- NOTE | 2018-11-20 11:57 | General Progress Note ---
Assessment/Plan Problem List: (1) Acute metabolic encephalopathy ICD Codes: G93.41 - Metabolic encephalopathy SNOMED: 99838410, 390673960 (2) MDD (3) Anxiety disorder ICD Codes: F41.9 - Anxiety disorder, unspecified SNOMED: 210632027 Status: unchanged Assessment/Plan Cymbalta 30mg po qam the pt may not leave ama the pt agreed to blood draw today Subjective Neurologic/Psychiatric: Reports: anxiety, depressed, emotional problems Allergies: Coded Allergies: PHENYTOIN (Verified Allergy, Unknown, 10/17/18) Uncoded Allergies: PENICILLIN (Allergy, Mild, 11/17/18) Subjective The pt cont to be noncompliant with care. The pt refused blood draw agreed to hd yesterday Objective Last 24 Hour Vital Signs Date Time Temp Pulse Resp B/P (MAP) Pulse Ox O2 Delivery O2 Flow Rate FiO2 11/20/18 11:35 98.6 11/20/18 09:17 74 116/62 11/20/18 08:15 Nasal Cannula 2.0 Nasal Cannula 2.0 11/20/18 08:14 74 18 97 Nasal Cannula 2.0 28 11/20/18 08:07 98.6 62 19 116/62 (80) 96 11/20/18 08:05 70 18 92 Nasal Cannula 3.0 32 11/20/18 08:05 Nasal Cannula 3.0 32 11/20/18 08:05 92 Nasal Cannula 3.0 32 11/20/18 07:24 66 11/20/18 06:10 139/78 11/20/18 04:19 70 11/20/18 04:19 97.1 72 18 139/78 (98) 97 11/20/18 02:08 79 18 97 Nasal Cannula 2.0 28 11/20/18 01:58 75 18 93 Nasal Cannula 3.0 32 11/20/18 00:27 66 11/20/18 00:00 97.0 64 18 132/80 (97) 97 11/20/18 00:00 135/71 11/19/18 21:00 Nasal Cannula 2.0 Nasal Cannula 2.0 11/19/18 20:07 66 18 96 Nasal Cannula 2.0 28 11/19/18 20:00 65 11/19/18 20:00 97.7 66 18 135/71 (92) 95 11/19/18 19:54 67 18 92 Nasal Cannula 3.0 32 11/19/18 19:54 92 Nasal Cannula 3.0 32 11/19/18 19:54 Nasal Cannula 3.0 32 11/19/18 17:33 138/79 11/19/18 16:00 67 11/19/18 16:00 97.7 67 20 138/79 (98) 96 11/19/18 14:13 Nasal Cannula 2.0 28 11/19/18 14:12 Nasal Cannula 11/19/18 12:00 114/79 11/19/18 12:00 67 11/19/18 12:00 98.2 63 20 114/79 (91) 96 Intake and Output 11/19/18 11/20/18 19:00 07:00 Intake Total 395.000 ml Output Total 2000 ml Balance -1605.000 ml Intake Oral 120 ml IV Total 275.000 ml Hemodialysis UF 2000 ml # Voids 2 # Bowel Movements 4 3 Laboratory Tests 11/20/18 10:40: White Blood Count 31.3#*H, Red Blood Count 3.09L, Hemoglobin 10.1L, Hematocrit 32.4L, Mean Corpuscular Volume 105H, Mean Corpuscular Hemoglobin 32.6H, Mean Corpuscular Hemoglobin Concent 31.1L, Red Cell Distribution Width 15.2H, Platelet Count 187, Mean Platelet Volume 8.4, Neutrophils (%) (Auto) , Lymphocytes (%) (Auto) , Monocytes (%) (Auto) , Eosinophils (%) (Auto) , Basophils (%) (Auto) , Differential Total Cells Counted 100, Neutrophils % ( Manual) 89H, Lymphocytes % (Manual) 3L, Monocytes % (Manual) 4, Eosinophils % ( Manual) 0, Basophils % (Manual) 0, Band Neutrophils 4, Platelet Estimate Adequate, Platelet Morphology Normal, Anisocytosis 1+, Macrocytosis 2+, Erythrocyte Sedimentation Rate [Pending], Sodium Level 132L, Potassium Level 4.0 , Chloride Level 95L, Carbon Dioxide Level 29, Anion Gap 8, Blood Urea Nitrogen 68H, Creatinine 4.8H, Estimat Glomerular Filtration Rate 12.2, Glucose Level 139H, Calcium Level 8.8, Total Bilirubin 1.2H, Direct Bilirubin 0.8H, Aspartate Amino Transf (AST/SGOT) 13L, Alanine Aminotransferase (ALT/SGPT) 11L, Alkaline Phosphatase 152H, Total Protein 7.5, Albumin 2.1L, Globulin 5.4, Albumin/ Globulin Ratio 0.4L Height (Feet): 5 Height (Inches): 7.00 Weight (Pounds): 122 General Appearance: alert, moderate distress Neurologic: oriented x 3, responsive, depressed affect Francisco Patel MD Nov 20, 2018 11:57
[2018-11-20 12:00] VITALS: BP 112/60
--- NOTE | 2018-11-20 12:20 | Diagnostic Imaging Report ---
Indication: Foot pain Technique: 3 views right foot Comparison: none Findings: No acute fractures. No dislocations. The joint spaces are preserved. No definite osseous erosions or other findings to suggest acute osteomyelitis demonstrated. There are extensive vascular calcifications. Questionable soft tissue defect over the heel could be related to stated clinical history of ulcer. Impression: No acute bony trauma No definite plain radiographic findings to suggest acute osteitis. Note, however, limited sensitivity of plain radiographs for such. Consider MRI or bone scan if there is high clinical suspicion
--- NOTE | 2018-11-20 12:29 | General Progress Note ---
Assessment/Plan Assessment/Plan #Acute hypoxic respiratory failure #Fluid overload -stable resp status -continue HD as per Nephrology -continue to monitor BMP, renal function #Leukocytosis #Sepsis #HCAP, gram negative pneumonia -persistent leukocytosis -consult Hematology -continue broad spectrum antibiotics -ID eval appreciated #Non-compliance with HD and medications #Depression #Mood disorder #lacks decision making capacity per psychiatry -continue current psychotropics -psychiatry followup I spent 45 minutes on this patient's case, and 25 minutes was dedicated to counseling and/or care coordination. Subjective Date patient seen: Nov 20, 2018 Time patient seen: 12:28 ROS Limited/Unobtainable: No Cardiovascular: Reports: chest pain, edema Respiratory: Reports: cough, orthopnea Gastrointestinal/Abdominal: Reports: abdomen distended Allergies: Coded Allergies: PHENYTOIN (Verified Allergy, Unknown, 10/17/18) Uncoded Allergies: PENICILLIN (Allergy, Mild, 11/17/18) Subjective Medicine follow up for acute hypoxic respiratory failure, fluid overload, noncompliance with HD, HCAP Underwent HD yesterday, 2 liters removed Objective Last 24 Hour Vital Signs Date Time Temp Pulse Resp B/P (MAP) Pulse Ox O2 Delivery O2 Flow Rate FiO2 11/20/18 12:00 98.4 69 20 112/60 (77) 94 11/20/18 11:35 98.6 11/20/18 09:17 74 116/62 11/20/18 08:15 Nasal Cannula 2.0 Nasal Cannula 2.0 11/20/18 08:14 74 18 97 Nasal Cannula 2.0 28 11/20/18 08:07 98.6 62 19 116/62 (80) 96 11/20/18 08:05 70 18 92 Nasal Cannula 3.0 32 11/20/18 08:05 Nasal Cannula 3.0 32 11/20/18 08:05 92 Nasal Cannula 3.0 32 11/20/18 07:24 66 11/20/18 06:10 139/78 11/20/18 04:19 70 11/20/18 04:19 97.1 72 18 139/78 (98) 97 11/20/18 02:08 79 18 97 Nasal Cannula 2.0 28 11/20/18 01:58 75 18 93 Nasal Cannula 3.0 32 11/20/18 00:27 66 11/20/18 00:00 97.0 64 18 132/80 (97) 97 11/20/18 00:00 135/71 11/19/18 21:00 Nasal Cannula 2.0 Nasal Cannula 2.0 11/19/18 20:07 66 18 96 Nasal Cannula 2.0 28 11/19/18 20:00 65 11/19/18 20:00 97.7 66 18 135/71 (92) 95 11/19/18 19:54 67 18 92 Nasal Cannula 3.0 32 11/19/18 19:54 92 Nasal Cannula 3.0 32 11/19/18 19:54 Nasal Cannula 3.0 32 11/19/18 17:33 138/79 11/19/18 16:00 67 11/19/18 16:00 97.7 67 20 138/79 (98) 96 11/19/18 14:13 Nasal Cannula 2.0 28 11/19/18 14:12 Nasal Cannula Intake and Output 11/19/18 11/20/18 19:00 07:00 Intake Total 395.000 ml Output Total 2000 ml Balance -1605.000 ml Intake Oral 120 ml IV Total 275.000 ml Hemodialysis UF 2000 ml # Voids 2 # Bowel Movements 4 3 Laboratory Tests 11/20/18 10:40: White Blood Count 31.3#*H, Red Blood Count 3.09L, Hemoglobin 10.1L, Hematocrit 32.4L, Mean Corpuscular Volume 105H, Mean Corpuscular Hemoglobin 32.6H, Mean Corpuscular Hemoglobin Concent 31.1L, Red Cell Distribution Width 15.2H, Platelet Count 187, Mean Platelet Volume 8.4, Neutrophils (%) (Auto) , Lymphocytes (%) (Auto) , Monocytes (%) (Auto) , Eosinophils (%) (Auto) , Basophils (%) (Auto) , Differential Total Cells Counted 100, Neutrophils % ( Manual) 89H, Lymphocytes % (Manual) 3L, Monocytes % (Manual) 4, Eosinophils % ( Manual) 0, Basophils % (Manual) 0, Band Neutrophils 4, Platelet Estimate Adequate, Platelet Morphology Normal, Anisocytosis 1+, Macrocytosis 2+, Erythrocyte Sedimentation Rate 65H, Sodium Level 132L, Potassium Level 4.0, Chloride Level 95L, Carbon Dioxide Level 29, Anion Gap 8, Blood Urea Nitrogen 68H, Creatinine 4.8H, Estimat Glomerular Filtration Rate 12.2, Glucose Level 139H, Calcium Level 8.8, Total Bilirubin 1.2H, Direct Bilirubin 0.8H, Aspartate Amino Transf (AST/SGOT) 13L, Alanine Aminotransferase (ALT/SGPT) 11L, Alkaline Phosphatase 152H, Total Protein 7.5, Albumin 2.1L, Globulin 5.4, Albumin/ Globulin Ratio 0.4L Height (Feet): 5 Height (Inches): 7.00 Weight (Pounds): 122 General Appearance: alert Cardiovascular: normal rate, regular rhythm Respiratory/Chest: lungs clear, normal breath sounds Shivam Plascencia MD Nov 20, 2018 12:29
--- NOTE | 2018-11-20 13:30 | Surgery Progress Note ---
Surgery Progress Note Subjective Additional Comments worsening leukocytosis. etiology unknown. CT reviewed. Plain films reviewed. full exam still without etiology that would be identified. Objective Last 24 Hour Vital Signs Date Time Temp Pulse Resp B/P (MAP) Pulse Ox O2 Delivery O2 Flow Rate FiO2 11/20/18 12:00 98.4 69 20 112/60 (77) 94 11/20/18 12:00 112/60 11/20/18 11:35 98.6 11/20/18 09:17 74 116/62 11/20/18 08:15 Nasal Cannula 2.0 Nasal Cannula 2.0 11/20/18 08:14 74 18 97 Nasal Cannula 2.0 28 11/20/18 08:07 98.6 62 19 116/62 (80) 96 11/20/18 08:05 70 18 92 Nasal Cannula 3.0 32 11/20/18 08:05 Nasal Cannula 3.0 32 11/20/18 08:05 92 Nasal Cannula 3.0 32 11/20/18 07:24 66 11/20/18 06:10 139/78 11/20/18 04:19 70 11/20/18 04:19 97.1 72 18 139/78 (98) 97 11/20/18 02:08 79 18 97 Nasal Cannula 2.0 28 11/20/18 01:58 75 18 93 Nasal Cannula 3.0 32 11/20/18 00:27 66 11/20/18 00:00 97.0 64 18 132/80 (97) 97 11/20/18 00:00 135/71 11/19/18 21:00 Nasal Cannula 2.0 Nasal Cannula 2.0 11/19/18 20:07 66 18 96 Nasal Cannula 2.0 28 11/19/18 20:00 65 11/19/18 20:00 97.7 66 18 135/71 (92) 95 11/19/18 19:54 67 18 92 Nasal Cannula 3.0 32 11/19/18 19:54 92 Nasal Cannula 3.0 32 11/19/18 19:54 Nasal Cannula 3.0 32 11/19/18 17:33 138/79 11/19/18 16:00 67 11/19/18 16:00 97.7 67 20 138/79 (98) 96 11/19/18 14:13 Nasal Cannula 2.0 28 11/19/18 14:12 Nasal Cannula I&O Intake and Output 11/19/18 11/20/18 19:00 07:00 Intake Total 395.000 ml Output Total 2000 ml Balance -1605.000 ml Intake Oral 120 ml IV Total 275.000 ml Hemodialysis UF 2000 ml # Voids 2 # Bowel Movements 4 3 Dressing: saturated Wound: clean Drains: none Cardiovascular: RSR Respiratory: clear Abdomen: soft, distended, non-tender Extremities: pulses, other Laboratory Tests Test 11/20/18 10:40 White Blood Count 31.3 K/UL (4.8-10.8) #*H Red Blood Count 3.09 M/UL (4.70-6.10) L Hemoglobin 10.1 G/DL (14.2-18.0) L Hematocrit 32.4 % (42.0-52.0) L Mean Corpuscular Volume 105 FL (80-99) H Mean Corpuscular Hemoglobin 32.6 PG (27.0-31.0) H Mean Corpuscular Hemoglobin Concent 31.1 G/DL (32.0-36.0) L Red Cell Distribution Width 15.2 % (11.6-14.8) H Platelet Count 187 K/UL (150-450) Mean Platelet Volume 8.4 FL (6.5-10.1) Neutrophils (%) (Auto) % (45.0-75.0) Lymphocytes (%) (Auto) % (20.0-45.0) Monocytes (%) (Auto) % (1.0-10.0) Eosinophils (%) (Auto) % (0.0-3.0) Basophils (%) (Auto) % (0.0-2.0) Differential Total Cells Counted 100 Neutrophils % (Manual) 89 % (45-75) H Lymphocytes % (Manual) 3 % (20-45) L Monocytes % (Manual) 4 % (1-10) Eosinophils % (Manual) 0 % (0-3) Basophils % (Manual) 0 % (0-2) Band Neutrophils 4 % (0-8) Platelet Estimate Adequate Platelet Morphology Normal Anisocytosis 1+ Macrocytosis 2+ Erythrocyte Sedimentation Rate 65 MM/HR (0-20) H Sodium Level 132 MMOL/L (136-145) L Potassium Level 4.0 MMOL/L (3.5-5.1) Chloride Level 95 MMOL/L (98-107) L Carbon Dioxide Level 29 MMOL/L (21-32) Anion Gap 8 mmol/L (5-15) Blood Urea Nitrogen 68 mg/dL (7-18) H Creatinine 4.8 MG/DL (0.55-1.30) H Estimat Glomerular Filtration Rate 12.2 mL/min (>60) Glucose Level 139 MG/DL (74-106) H Calcium Level 8.8 MG/DL (8.5-10.1) Total Bilirubin 1.2 MG/DL (0.2-1.0) H Direct Bilirubin 0.8 MG/DL (0.0-0.3) H Aspartate Amino Transf (AST/SGOT) 13 U/L (15-37) L Alanine Aminotransferase (ALT/SGPT) 11 U/L (12-78) L Alkaline Phosphatase 152 U/L (46-116) H Total Protein 7.5 G/DL (6.4-8.2) Albumin 2.1 G/DL (3.4-5.0) L Globulin 5.4 g/dL Albumin/Globulin Ratio 0.4 (1.0-2.7) L Plan Problems: (1) Decubitus ulcer of right heel, stage 4 Assessment & Plan: Pt presents with full thickness stage 4 ulcer R heel which he has had for months (L)3cm x (W)2.5cm and 1cm deep. moderate slough noted to base of of wound ,otherwise romeo and moist.Bone palpable .(+) maceration along borders.Periwound fluctuant without erythema. 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 Plan: Cleanse R heel wound with Saline.Apply Therahoney to wound. Apply Cavilon Skin Barrier along borders and Periwound.Cover with Abd and wrap with Kerlix Daily and prn. Apply Benzoin Tincture Swab to R 1st metatarsal and wrap with Kerlix Daily and prn. Apply Moisture Barrier Paste to sacral area .Cover with Optifoam drsg .Change every 3 days and prn. Off-load R heel with pillow. Encourage and assist as needed with repositioning at least every 2hours or as tolerated. (2) Hx of BKA (3) Dyspnea (4) Sepsis Assessment & Plan: persistent leukocytosis sepsis labs noted Right basilar consolidation and perihilar infiltrates. Pneumonia certainly a consideration. Correlate clinically. Extensive calcifications throughout the lungs. Consider old granulomatous disease. Moderate to severe ascites. Atrophied kidneys consistent with end-stage renal disease. Extensive vascular disease. SVC stent. Anasarca Umbilical hernia Cont Abx; likely pna Heme Consult Damian Michaels Nov 20, 2018 13:30
--- NOTE | 2018-11-20 15:04 | Nephrology Progress Note ---
Assessment/Plan Problem List: (1) ESRD (end stage renal disease) on dialysis (2) Bradycardia (3) Anemia (4) Leukocytosis Assessment (1) ESRD (end stage renal disease) right arm fistula (2) Fluid overload, unspecified (3) Bradycardia (4) Anemia (5) Pleural effusion Plan due HD in am [facility] for high K as needed at times refuses care and meds ! adjust BP meds 2D Echo pending stop beta blockers on hydralazin and procardia per consultants Subjective ROS Limited/Unobtainable: No Constitutional: Reports: malaise Objective Objective Last 24 Hour Vital Signs Date Time Temp Pulse Resp B/P (MAP) Pulse Ox O2 Delivery O2 Flow Rate FiO2 11/20/18 13:32 71 18 97 Nasal Cannula 2.0 28 11/20/18 13:19 74 18 93 Nasal Cannula 3.0 32 11/20/18 12:00 98.4 69 20 112/60 (77) 94 11/20/18 12:00 112/60 11/20/18 11:57 80 11/20/18 11:35 98.6 11/20/18 09:17 74 116/62 11/20/18 08:15 Nasal Cannula 2.0 Nasal Cannula 2.0 11/20/18 08:14 74 18 97 Nasal Cannula 2.0 28 11/20/18 08:07 98.6 62 19 116/62 (80) 96 11/20/18 08:05 70 18 92 Nasal Cannula 3.0 32 11/20/18 08:05 Nasal Cannula 3.0 32 11/20/18 08:05 92 Nasal Cannula 3.0 32 11/20/18 07:24 66 11/20/18 06:10 139/78 11/20/18 04:19 70 11/20/18 04:19 97.1 72 18 139/78 (98) 97 11/20/18 02:08 79 18 97 Nasal Cannula 2.0 28 11/20/18 01:58 75 18 93 Nasal Cannula 3.0 32 11/20/18 00:27 66 11/20/18 00:00 97.0 64 18 132/80 (97) 97 11/20/18 00:00 135/71 11/19/18 21:00 Nasal Cannula 2.0 Nasal Cannula 2.0 2/25/19 20:07 66 18 96 Nasal Cannula 2.0 28 11/19/18 20:00 65 11/19/18 20:00 97.7 66 18 135/71 (92) 95 11/19/18 19:54 67 18 92 Nasal Cannula 3.0 32 11/19/18 19:54 92 Nasal Cannula 3.0 32 11/19/18 19:54 Nasal Cannula 3.0 32 11/19/18 17:33 138/79 11/19/18 16:00 67 11/19/18 16:00 97.7 67 20 138/79 (98) 96 Intake and Output 11/19/18 11/20/18 19:00 07:00 Intake Total 395.000 ml Output Total 2000 ml Balance -1605.000 ml Intake Oral 120 ml IV Total 275.000 ml Hemodialysis UF 2000 ml # Voids 2 # Bowel Movements 4 3 Laboratory Tests 11/20/18 10:40: White Blood Count 31.3#*H, Red Blood Count 3.09L, Hemoglobin 10.1L, Hematocrit 32.4L, Mean Corpuscular Volume 105H, Mean Corpuscular Hemoglobin 32.6H, Mean Corpuscular Hemoglobin Concent 31.1L, Red Cell Distribution Width 15.2H, Platelet Count 187, Mean Platelet Volume 8.4, Neutrophils (%) (Auto) , Lymphocytes (%) (Auto) , Monocytes (%) (Auto) , Eosinophils (%) (Auto) , Basophils (%) (Auto) , Differential Total Cells Counted 100, Neutrophils % ( Manual) 89H, Lymphocytes % (Manual) 3L, Monocytes % (Manual) 4, Eosinophils % ( Manual) 0, Basophils % (Manual) 0, Band Neutrophils 4, Platelet Estimate Adequate, Platelet Morphology Normal, Anisocytosis 1+, Macrocytosis 2+, Erythrocyte Sedimentation Rate 65H, Sodium Level 132L, Potassium Level 4.0, Chloride Level 95L, Carbon Dioxide Level 29, Anion Gap 8, Blood Urea Nitrogen 68H, Creatinine 4.8H, Estimat Glomerular Filtration Rate 12.2, Glucose Level 139H, Calcium Level 8.8, Total Bilirubin 1.2H, Direct Bilirubin 0.8H, Aspartate Amino Transf (AST/SGOT) 13L, Alanine Aminotransferase (ALT/SGPT) 11L, Alkaline Phosphatase 152H, Total Protein 7.5, Albumin 2.1L, Globulin 5.4, Albumin/ Globulin Ratio 0.4L Height (Feet): 5 Height (Inches): 7.00 Weight (Pounds): 122 General Appearance: no apparent distress Cardiovascular: normal rate Respiratory/Chest: decreased breath sounds Objective no change Alessandro Price MD Nov 20, 2018 15:04
[2018-11-20 15:55] VITALS: BP 129/73
--- NOTE | 2018-11-20 18:44 | NUR ---
NURSE NOTES: Pt transfered to [address] [place] [address], report given to Savanna Rn, no belongings Pt calm and cooperative.
[2018-11-20] MEDS ORDERED: Haloperidol 5mg/ml Inj IM PRN (18:49)
[2018-11-20] MEDS ORDERED: DiphenhydrAMINE 50mg/ml Inj IM PRN (18:49)
[2018-11-20] MEDS ORDERED: LORazepam Inj 2mg/ml 1ml IM PRN (18:50)
[2018-11-20] MEDS ORDERED: traMADol 50mg tab ORAL PRN (18:51)
--- NOTE | 2018-11-20 19:25 | NUR ---
HAND-OFF: Report given to SONG Marin.
[2018-11-20 20:00] VITALS: BP 131/77
[2018-11-20] MEDS: AMIKACIN IV SCH (20:00)
[2018-11-20] MEDS: NS IV SCH (20:00)
--- NOTE | 2018-11-20 20:05 | NUR ---
NURSE NOTES: Patient in bed asleep easily arousable to name, no s/s acute distress noted. Turned and repositioned, kept clean and dry. Bed in lowest position for safety. Call light within reach.
--- NOTE | 2018-11-20 21:50 | NUR ---
NURSE NOTES: Received call from Vaidm from [facility], confirmed dialysis for tomorrow.
[2018-11-21] VITALS: BP 120/61
[2018-11-21] MEDS: Ipratropium 0.02% Inh Soln 2.5ml UD HHN SCH ×4 (00:02→19:28)
[2018-11-21] MEDS: Albuterol ud Inhalation HHN SCH ×4 (00:02→19:28)
[2018-11-21] MEDS: HydrALAZINE 10mg Tab ORAL SCH ×4 (00:05→18:08)
[2018-11-21 04:00] VITALS: BP 110/56
[2018-11-21] MEDS: NovoLOG Insulin Flexpen SUBQ SCH ×4 (06:29→21:00)
--- NOTE | 2018-11-21 07:30 | NUR ---
HAND-OFF: Written report given to Kash ZULETA.
[2018-11-21 08:00] VITALS: BP 103/51
--- NOTE | 2018-11-21 08:39 | General Progress Note ---
Assessment/Plan Assessment/Plan #Acute hypoxic respiratory failure #Fluid overload -stable resp status -continue HD as per Nephrology -continue to monitor BMP, renal function #Leukocytosis #Sepsis #HCAP, gram negative pneumonia -persistent leukocytosis despite IV antibiotics -Hematology eval pending -continue broad spectrum antibiotics -continue to monitor WBC -ID and Surgery following #Non-compliance with HD and medications #Depression #Mood disorder #lacks decision making capacity per psychiatry -continue current psychotropics -psychiatry followup I spent 45 minutes on this patient's case, and 25 minutes was dedicated to counseling and/or care coordination. Subjective Date patient seen: Nov 21, 2018 Time patient seen: 08:35 ROS Limited/Unobtainable: No Cardiovascular: Denies: chest pain Respiratory: Denies: cough Gastrointestinal/Abdominal: Denies: abdomen distended Allergies: Coded Allergies: PHENYTOIN (Verified Allergy, Unknown, 10/17/18) Uncoded Allergies: PENICILLIN (Allergy, Mild, 11/17/18) Subjective Medicine follow up for acute hypoxic respiratory failure, fluid overload, noncompliance with HD, HCAP Patient undergoing HD today, no new complaints, wants to go home Objective Last 24 Hour Vital Signs Date Time Temp Pulse Resp B/P (MAP) Pulse Ox O2 Delivery O2 Flow Rate FiO2 11/21/18 07:18 77 20 100 Venturi Mask 10.0 45 11/21/18 07:06 80 20 99 Venturi Mask 10.0 45 11/21/18 07:05 Venturi Mask 10.0 45 11/21/18 07:05 99 Venturi Mask 10.0 45 11/21/18 06:00 108/55 11/21/18 04:00 97.8 68 18 110/56 (74) 94 11/21/18 00:12 69 20 94 Venturi Mask 12.0 50 11/21/18 00:05 120/61 11/21/18 00:02 76 18 90 Nasal Cannula 3.0 32 11/21/18 00:00 98.0 86 18 120/61 (80) 95 11/20/18 21:00 Nasal Cannula 2.0 Nasal Cannula 2.0 11/20/18 20:07 75 20 97 Nasal Cannula 3.0 32 11/20/18 20:00 98.1 74 20 131/77 (95) 95 11/20/18 19:57 72 18 94 Nasal Cannula 3.0 32 11/20/18 19:55 93 Nasal Cannula 3.0 32 11/20/18 19:55 Nasal Cannula 3.0 32 11/20/18 18:00 129/73 11/20/18 15:55 97.3 84 20 129/73 (91) 92 11/20/18 13:32 71 18 97 Nasal Cannula 2.0 28 11/20/18 13:19 74 18 93 Nasal Cannula 3.0 32 11/20/18 12:00 98.4 69 20 112/60 (77) 94 11/20/18 12:00 112/60 11/20/18 11:57 80 11/20/18 11:35 98.6 11/20/18 09:17 74 116/62 Intake and Output 11/20/18 11/21/18 19:00 07:00 Intake Total 490 ml 320 ml Balance 490 ml 320 ml Intake Oral 490 ml 120 ml IV Total 200 ml # Bowel Movements 4 Laboratory Tests 11/20/18 10:40: White Blood Count 31.3#*H, Red Blood Count 3.09L, Hemoglobin 10.1L, Hematocrit 32.4L, Mean Corpuscular Volume 105H, Mean Corpuscular Hemoglobin 32.6H, Mean Corpuscular Hemoglobin Concent 31.1L, Red Cell Distribution Width 15.2H, Platelet Count 187, Mean Platelet Volume 8.4, Neutrophils (%) (Auto) , Lymphocytes (%) (Auto) , Monocytes (%) (Auto) , Eosinophils (%) (Auto) , Basophils (%) (Auto) , Differential Total Cells Counted 100, Neutrophils % ( Manual) 89H, Lymphocytes % (Manual) 3L, Monocytes % (Manual) 4, Eosinophils % ( Manual) 0, Basophils % (Manual) 0, Band Neutrophils 4, Platelet Estimate Adequate, Platelet Morphology Normal, Anisocytosis 1+, Macrocytosis 2+, Erythrocyte Sedimentation Rate 65H, Sodium Level 132L, Potassium Level 4.0, Chloride Level 95L, Carbon Dioxide Level 29, Anion Gap 8, Blood Urea Nitrogen 68H, Creatinine 4.8H, Estimat Glomerular Filtration Rate 12.2, Glucose Level 139H, Calcium Level 8.8, Total Bilirubin 1.2H, Direct Bilirubin 0.8H, Aspartate Amino Transf (AST/SGOT) 13L, Alanine Aminotransferase (ALT/SGPT) 11L, Alkaline Phosphatase 152H, C-Reactive Protein, Quantitative 27.3H, Total Protein 7.5, Albumin 2.1L, Globulin 5.4, Albumin/Globulin Ratio 0.4L Height (Feet): 5 Height (Inches): 7.00 Weight (Pounds): 123 General Appearance: no apparent distress, alert Neck: normal alignment, supple Cardiovascular: normal rate, regular rhythm Respiratory/Chest: lungs clear, normal breath sounds Shivam Plascencia MD Nov 21, 2018 08:39
[2018-11-21] MEDS: Heparin 5000 units/ml inj SUBQ SCH ×2 (09:00→20:39)
[2018-11-21] MEDS: Docusate 100mg cap ORAL SCH (09:00)
[2018-11-21] MEDS: Aspirin EC 81mg tab ORAL SCH (09:00)
[2018-11-21] MEDS ORDERED: Amikacin Rx to dose MISC PRN (09:00)
[2018-11-21] MEDS: Pyridoxine 50mg tab ORAL SCH (09:00)
[2018-11-21] MEDS: Nephrovite tab (Rena-Vite) ORAL SCH (09:00)
[2018-11-21 12:00] VITALS: BP 141/97
--- NOTE | 2018-11-21 12:18 | General Progress Note ---
Assessment/Plan Problem List: (1) Acute metabolic encephalopathy ICD Codes: G93.41 - Metabolic encephalopathy SNOMED: 04625175, [id number] (2) MDD (3) Anxiety disorder ICD Codes: F41.9 - Anxiety disorder, unspecified SNOMED: 757101418 Status: not improved Assessment/Plan Cymbalta 40mg po qam the pt may not leave ama the pt agreed to blood draw today Subjective Neurologic/Psychiatric: Reports: anxiety, depressed, emotional problems Allergies: Coded Allergies: PHENYTOIN (Verified Allergy, Unknown, 10/17/18) Uncoded Allergies: PENICILLIN (Allergy, Mild, 11/17/18) Subjective The pt cont to be noncompliant with care at times however more cooperative Objective Last 24 Hour Vital Signs Date Time Temp Pulse Resp B/P (MAP) Pulse Ox O2 Delivery O2 Flow Rate FiO2 11/21/18 09:00 65 103/51 11/21/18 09:00 Nasal Cannula 2.0 Nasal Cannula 2.0 11/21/18 08:00 98.3 65 18 103/51 (68) 97 11/21/18 07:18 77 20 100 Venturi Mask 10.0 45 11/21/18 07:06 80 20 99 Venturi Mask 10.0 45 11/21/18 07:05 Venturi Mask 10.0 45 11/21/18 07:05 99 Venturi Mask 10.0 45 11/21/18 06:00 108/55 11/21/18 04:00 97.8 68 18 110/56 (74) 94 11/21/18 00:12 69 20 94 Venturi Mask 12.0 50 11/21/18 00:05 120/61 11/21/18 00:02 76 18 90 Nasal Cannula 3.0 32 11/21/18 00:00 98.0 86 18 120/61 (80) 95 11/20/18 21:00 Nasal Cannula 2.0 Nasal Cannula 2.0 11/20/18 20:07 75 20 97 Nasal Cannula 3.0 32 11/20/18 20:00 98.1 74 20 131/77 (95) 95 11/20/18 19:57 72 18 94 Nasal Cannula 3.0 32 11/20/18 19:55 93 Nasal Cannula 3.0 32 11/20/18 19:55 Nasal Cannula 3.0 32 2/26/19 18:00 129/73 11/20/18 15:55 97.3 84 20 129/73 (91) 92 11/20/18 13:32 71 18 97 Nasal Cannula 2.0 28 11/20/18 13:19 74 18 93 Nasal Cannula 3.0 32 Intake and Output 11/20/18 11/21/18 19:00 07:00 Intake Total 490 ml 320 ml Balance 490 ml 320 ml Intake Oral 490 ml 120 ml IV Total 200 ml # Bowel Movements 4 Height (Feet): 5 Height (Inches): 7.00 Weight (Pounds): 123 General Appearance: WD/WN, no apparent distress, alert Neurologic: oriented x 3, responsive, depressed affect Francisco Patel MD Nov 21, 2018 12:18
--- NOTE | 2018-11-21 12:23 | Diagnostic Imaging Report ---
Indication: Dyspnea Comparison: 11/19/2018 A single view chest radiograph was obtained. Findings: Patchy interstitial opacities demonstrated throughout both lung gooden. A density in the right perihilar region may be scarring. Infiltrates superimposed difficult to exclude. IMPRESSION: No significant change compared to the prior study
--- NOTE | 2018-11-21 13:12 | NUR ---
RADIOLOGY DEPT CHEST X-RAY POST DIALYSIS HAS BEEN PERFORMED.-P.DYE
--- NOTE | 2018-11-21 14:14 | Surgery Progress Note ---
Surgery Progress Note Subjective Additional Comments pending labs for today. Objective Last 24 Hour Vital Signs Date Time Temp Pulse Resp B/P (MAP) Pulse Ox O2 Delivery O2 Flow Rate FiO2 11/21/18 13:55 78 20 100 Venturi Mask 10.0 45 11/21/18 13:42 78 18 99 Venturi Mask 10.0 45 11/21/18 12:41 141/97 11/21/18 12:00 97.7 67 20 141/97 (112) 98 11/21/18 09:00 65 103/51 11/21/18 09:00 Nasal Cannula 2.0 Nasal Cannula 2.0 11/21/18 08:00 98.3 65 18 103/51 (68) 97 11/21/18 07:18 77 20 100 Venturi Mask 10.0 45 11/21/18 07:06 80 20 99 Venturi Mask 10.0 45 11/21/18 07:05 Venturi Mask 10.0 45 11/21/18 07:05 99 Venturi Mask 10.0 45 11/21/18 06:00 108/55 11/21/18 04:00 97.8 68 18 110/56 (74) 94 11/21/18 00:12 69 20 94 Venturi Mask 12.0 50 11/21/18 00:05 120/61 11/21/18 00:02 76 18 90 Nasal Cannula 3.0 32 11/21/18 00:00 98.0 86 18 120/61 (80) 95 11/20/18 21:00 Nasal Cannula 2.0 Nasal Cannula 2.0 11/20/18 20:07 75 20 97 Nasal Cannula 3.0 32 11/20/18 20:00 98.1 74 20 131/77 (95) 95 11/20/18 19:57 72 18 94 Nasal Cannula 3.0 32 11/20/18 19:55 93 Nasal Cannula 3.0 32 11/20/18 19:55 Nasal Cannula 3.0 32 11/20/18 18:00 129/73 11/20/18 15:55 97.3 84 20 129/73 (91) 92 I&O Intake and Output 11/20/18 11/21/18 19:00 07:00 Intake Total 490 ml 320 ml Balance 490 ml 320 ml Intake Oral 490 ml 120 ml IV Total 200 ml # Bowel Movements 4 Dressing: other Wound: other Drains: other Cardiovascular: RSR Respiratory: clear Abdomen: soft, present bowel sounds, non-distended Extremities: other Plan Problems: (1) Decubitus ulcer of right heel, stage 4 Assessment & Plan: Pt presents with full thickness stage 4 ulcer R heel which he has had for months (L)3cm x (W)2.5cm and 1cm deep. moderate slough noted to base of of wound ,otherwise romeo and moist.Bone palpable .(+) maceration along borders.Periwound fluctuant without erythema. 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 Plan: Cleanse R heel wound with Saline.Apply Therahoney to wound. Apply Cavilon Skin Barrier along borders and Periwound.Cover with Abd and wrap with Kerlix Daily and prn. Apply Benzoin Tincture Swab to R 1st metatarsal and wrap with Kerlix Daily and prn. Apply Moisture Barrier Paste to sacral area .Cover with Optifoam drsg .Change every 3 days and prn. Off-load R heel with pillow. Encourage and assist as needed with repositioning at least every 2hours or as tolerated. (2) Hx of BKA (3) Dyspnea (4) Sepsis Assessment & Plan: persistent leukocytosis sepsis labs noted Right basilar consolidation and perihilar infiltrates. Pneumonia certainly a consideration. Correlate clinically. Extensive calcifications throughout the lungs. Consider old granulomatous disease. Moderate to severe ascites. Atrophied kidneys consistent with end-stage renal disease. Extensive vascular disease. SVC stent. Anasarca Umbilical hernia Cont Abx; likely pna Heme Consult Damian Michaels Nov 21, 2018 14:14
[2018-11-21 16:00] VITALS: BP 126/57
--- NOTE | 2018-11-21 16:34 | Infectious Diseases Prog Note ---
Assessment/Plan Assessment/Plan ASSESSMENT AND PLAN: 1. possible sepsis, pneumonia, leukocytosis, CT scan noted and c/w pna - vancomycin, flagyl, levofloxacin and amikacin - monitor labs and chest x-ray - cannot obtain sputum culture - hem/onc evaluation for leukocytosis - d/w Dr. Tidwell - may need wbc scan if no improvement 2. Right heel wound - x-ray without osteo, d/w surgery and wound stable, unlikely sepsis source 3. The patient has ascites. Defer further management per primary. There is no abdominal pain associated to suggest spontaneous bacterial peritonitis. Consider GI evaluation for possible paracentesis. 4. End-stage renal disease, on hemodialysis. Treatment per Renal Medicine. 5. CHF. 6. COPD. 7. MDD. 8. Wound care protocol and surgery. 9. Anxiety. 10. Anemia. 11. Pleural effusion. 12. History of left BKA, per Vascular Disease. 13. Diabetes and hypertension. Per primary. 14. History of bradycardia. 15. Allergy to penicillin and phenytoin. 16. Family history noncontributory. 17. Social history negative. 18. MAR was noted. 19. Case discussed with RN. 20. Continue treatment per primary consultants. 21. vre colonization Subjective Constitutional: Reports: fatigue, other - no new focal weakn, no fevers or chills, + VM; Denies: fever HEENT: Reports: congestion Respiratory: Reports: shortness of breath Cardiovascular: Denies: chest pain Gastrointestinal/Abdominal: Denies: nausea, vomiting Genitourinary: Reports: other - no negro Neurologic: Reports: other - alert Psychiatric: Reports: other - na Skin: Denies: rash Hematologic: Denies: bleeding Allergies: Coded Allergies: PHENYTOIN (Verified Allergy, Unknown, 10/17/18) Uncoded Allergies: PENICILLIN (Allergy, Mild, 11/17/18) Objective Vital Signs Last 24 Hour Vital Signs Date Time Temp Pulse Resp B/P (MAP) Pulse Ox O2 Delivery O2 Flow Rate FiO2 11/21/18 13:55 78 20 100 Venturi Mask 10.0 45 11/21/18 13:42 78 18 99 Venturi Mask 10.0 45 11/21/18 12:41 141/97 11/21/18 12:00 97.7 67 20 141/97 (112) 98 11/21/18 09:00 65 103/51 11/21/18 09:00 Nasal Cannula 2.0 Nasal Cannula 2.0 11/21/18 08:00 98.3 65 18 103/51 (68) 97 11/21/18 07:18 77 20 100 Venturi Mask 10.0 45 11/21/18 07:06 80 20 99 Venturi Mask 10.0 45 11/21/18 07:05 Venturi Mask 10.0 45 11/21/18 07:05 99 Venturi Mask 10.0 45 11/21/18 06:00 108/55 11/21/18 04:00 97.8 68 18 110/56 (74) 94 11/21/18 00:12 69 20 94 Venturi Mask 12.0 50 11/21/18 00:05 120/61 11/21/18 00:02 76 18 90 Nasal Cannula 3.0 32 11/21/18 00:00 98.0 86 18 120/61 (80) 95 11/20/18 21:00 Nasal Cannula 2.0 Nasal Cannula 2.0 11/20/18 20:07 75 20 97 Nasal Cannula 3.0 32 11/20/18 20:00 98.1 74 20 131/77 (95) 95 11/20/18 19:57 72 18 94 Nasal Cannula 3.0 32 11/20/18 19:55 93 Nasal Cannula 3.0 32 11/20/18 19:55 Nasal Cannula 3.0 32 11/20/18 18:00 129/73 Height (Feet): 5 Height (Inches): 7.00 Weight (Pounds): 123 General Appearance: other - alert, + breathing mask and some sob HEENT: normocephalic, atraumatic, anicteric, EOMI, pharynx normal, supple, no JVD Respiratory/Chest: crackles/rales, rhonchi - bilaterally Cardiovascular: normal rate, regular rhythm, no gallop/murmur, no JVD Abdomen: normal bowel sounds, soft, non tender, no organomegaly, non distended Genitourinary: other - no negro, no cva pain Extremities: other - + left leg amputation, right foot and heel covered Skin: no rash 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 Pneumonia certainly a consideration. Correlate clinically. Extensive calcifications throughout the lungs. Consider old granulomatous disease. Moderate to severe ascites. Atrophied kidneys consistent with end-stage renal disease. Extensive vascular disease. SVC stent. Anasarca Umbilical hernia Limited evaluation due to the nonadministration of intravenous contrast Chest x-ray - 11/21/18 - Comparison: 11/19/2018 A single view chest radiograph was obtained. Findings: Patchy interstitial opacities demonstrated throughout both lung gooden. A density in the right perihilar region may be scarring. Infiltrates superimposed difficult to exclude. IMPRESSION: No significant change compared to the prior study Chest x-ray - 11/21/18 - Microbiology Date/Time Source Procedure Growth Status 11/15/18 21:45 Blood Blood Culture - Final NO GROWTH AFTER 5 DAYS Complete 11/16/18 04:00 Nasal Nares MRSA Culture - Final NO METHICILLIN RESISTANT STAPH AUREUS... Complete 11/15/18 22:50 Rectum - Final NO CARBAPENEM-RESISTANT ENTEROBACTERI... Complete no sc obtained vre screen - + Labs Test 11/19/18 05:05 11/20/18 10:40 White Blood Count 20.6 K/UL (4.8-10.8) 31.3 K/UL (4.8-10.8) Red Blood Count 3.35 M/UL (4.70-6.10) 3.09 M/UL (4.70-6.10) Hemoglobin 11.1 G/DL (14.2-18.0) 10.1 G/DL (14.2-18.0) Hematocrit 34.8 % (42.0-52.0) 32.4 % (42.0-52.0) Mean Corpuscular Volume 104 FL (80-99) 105 FL (80-99) Mean Corpuscular Hemoglobin 33.2 PG (27.0-31.0) 32.6 PG (27.0-31.0) Mean Corpuscular Hemoglobin Concent 32.0 G/DL (32.0-36.0) 31.1 G/DL (32.0-36.0) Red Cell Distribution Width 14.7 % (11.6-14.8) 15.2 % (11.6-14.8) Platelet Count 198 K/UL (150-450) 187 K/UL (150-450) Mean Platelet Volume 7.9 FL (6.5-10.1) 8.4 FL (6.5-10.1) Neutrophils (%) (Auto) % (45.0-75.0) % (45.0-75.0) Lymphocytes (%) (Auto) % (20.0-45.0) % (20.0-45.0) Monocytes (%) (Auto) % (1.0-10.0) % (1.0-10.0) Eosinophils (%) (Auto) % (0.0-3.0) % (0.0-3.0) Basophils (%) (Auto) % (0.0-2.0) % (0.0-2.0) Differential Total Cells Counted 100 100 Neutrophils % (Manual) 86 % (45-75) 89 % (45-75) Lymphocytes % (Manual) 8 % (20-45) 3 % (20-45) Monocytes % (Manual) 5 % (1-10) 4 % (1-10) Eosinophils % (Manual) 1 % (0-3) 0 % (0-3) Basophils % (Manual) 0 % (0-2) 0 % (0-2) Band Neutrophils 0 % (0-8) 4 % (0-8) Platelet Estimate Adequate Adequate Platelet Morphology Normal Normal Hypochromasia 1+ Anisocytosis 1+ 1+ Macrocytosis 1+ 2+ Sodium Level 131 MMOL/L (136-145) 132 MMOL/L (136-145) Potassium Level 5.3 MMOL/L (3.5-5.1) 4.0 MMOL/L (3.5-5.1) Chloride Level 95 MMOL/L (98-107) 95 MMOL/L (98-107) Carbon Dioxide Level 27 MMOL/L (21-32) 29 MMOL/L (21-32) Anion Gap 10 mmol/L (5-15) 8 mmol/L (5-15) Blood Urea Nitrogen 86 mg/dL (7-18) 68 mg/dL (7-18) Creatinine 5.3 MG/DL (0.55-1.30) 4.8 MG/DL (0.55-1.30) Estimat Glomerular Filtration Rate 10.9 mL/min (>60) 12.2 mL/min (>60) Glucose Level 83 MG/DL (74-106) 139 MG/DL (74-106) Calcium Level 9.5 MG/DL (8.5-10.1) 8.8 MG/DL (8.5-10.1) Phosphorus Level 4.9 MG/DL (2.5-4.9) Magnesium Level 2.6 MG/DL (1.8-2.4) Total Bilirubin 1.2 MG/DL (0.2-1.0) 1.2 MG/DL (0.2-1.0) Direct Bilirubin 0.7 MG/DL (0.0-0.3) 0.8 MG/DL (0.0-0.3) Aspartate Amino Transf (AST/SGOT) 25 U/L (15-37) 13 U/L (15-37) Alanine Aminotransferase (ALT/SGPT) 15 U/L (12-78) 11 U/L (12-78) Alkaline Phosphatase 189 U/L (46-116) 152 U/L (46-116) C-Reactive Protein, Quantitative 13.6 mg/dL (0.00-0.90) 27.3 mg/dL (0.00-0.90) Pro-B-Type Natriuretic Peptide > 62379 pg/mL (0-125) Total Protein 8.4 G/DL (6.4-8.2) 7.5 G/DL (6.4-8.2) Albumin 2.4 G/DL (3.4-5.0) 2.1 G/DL (3.4-5.0) Globulin 6.0 g/dL 5.4 g/dL Albumin/Globulin Ratio 0.4 (1.0-2.7) 0.4 (1.0-2.7) Random Vancomycin Level 16.8 ug/mL Erythrocyte Sedimentation Rate 65 MM/HR (0-20) Current Medications Medications (Trade) Dose Ordered Sig/Ronald Route PRN Reason Start Time Stop Time Status Last Admin Dose Admin Acetaminophen/ Hydrocodone Bitart ([place] 5/325) 1 tab Q4H PRN ORAL Severe Pain (Pain Scale 7-10) 11/20/18 18:50 11/23/18 18:49 Albuterol Sulfate (Proventil) 2.5 mg Q6HRT N 11/20/18 19:00 11/25/18 18:59 11/21/18 13:48 Amikacin Protocol (Amikacin pharmacy to dose) 1 ea DAILY PRN MISC Per rx protocol 11/21/18 09:00 12/18/18 12:14 Amikacin Sulfate 200 mg/Sodium Chloride 55.8 ml @ 110 mls/hr POSTHD@2000 IV 11/20/18 20:00 11/26/18 19:59 Amlodipine Besylate (Norvasc) 10 mg DAILY ORAL 11/21/18 09:00 12/17/18 08:59 Aspirin (Ecotrin) 81 mg DAILY ORAL 11/21/18 09:00 12/17/18 08:59 Dextrose (Dextrose 50%) 25 ml Q30M PRN IV Hypoglycemia 11/20/18 18:45 12/16/18 08:14 Dextrose (Dextrose 50%) 50 ml Q30M PRN IV Hypoglycemia 11/20/18 18:45 12/16/18 08:14 Diphenhydramine HCl (Benadryl) 50 mg Q6H PRN IM itching 11/20/18 18:49 12/16/18 18:48 Docusate Sodium (Colace) 200 mg DAILY ORAL 11/21/18 09:00 12/17/18 08:59 Duloxetine HCl (Cymbalta) 40 mg DAILY ORAL 11/21/18 09:00 12/20/18 08:59 Haloperidol Lactate (Haldol) 5 mg Q6H PRN IM Agitation 11/20/18 18:49 12/16/18 18:48 Heparin Sodium (Porcine) (Heparin 5000 units/ml) 5,000 units EVERY 12 HOURS SUBQ 11/20/18 21:00 12/16/18 20:59 11/20/18 21:04 Hydralazine HCl (Apresoline) 10 mg Q6HR ORAL 11/21/18 00:00 12/16/18 17:59 11/21/18 12:41 Insulin Aspart (NovoLOG) BEFORE MEALS AND HS SUBQ 11/20/18 21:00 12/16/18 11:29 Ipratropium [place] (Atrovent) 0.5 mcg Q6HRT HHN 11/20/18 19:00 11/25/18 18:59 11/21/18 13:48 Levofloxacin 100 ml @ 100 mls/hr Q48H IVPB 11/21/18 23:00 11/24/18 22:59 Lorazepam (Ativan 2mg/ml 1ml) 2 mg Q4H PRN IM For Anxiety 11/20/18 18:50 11/23/18 18:49 Metronidazole 100 ml @ 100 mls/hr Q8HR IVPB 11/20/18 22:00 11/27/18 13:59 11/21/18 14:15 Pyridoxine HCl (Vitamin B6) 25 mg DAILY ORAL 11/21/18 09:00 12/17/18 08:59 Sevelamer Carbonate (Renvela) 1,600 mg THREE TIMES A DAY ORAL 11/21/18 09:00 12/16/18 12:59 11/21/18 12:41 Tramadol HCl (Ultram) 50 mg Q6H PRN ORAL Moderate Pain (Pain Scale 4-6) 11/20/18 18:51 11/23/18 18:50 Vancomycin HCl (Vanco rx to dose) 1 ea DAILY PRN MISC Per rx protocol 11/21/18 09:00 12/16/18 08:14 Vitamin B Complex/ Vit C/Folic Acid (Nephrovite) 1 tab DAILY ORAL 11/21/18 09:00 12/17/18 08:59 Anshu Munguia MD Nov 21, 2018 16:34
--- NOTE | 2018-11-21 16:49 | Consultation ---
History of Present Illness General Date patient seen: Nov 21, 2018 Chief Complaint: Dyspnea/Respdistress Present Illness Allergies: Coded Allergies: PHENYTOIN (Verified Allergy, Unknown, 10/17/18) Uncoded Allergies: PENICILLIN (Allergy, Mild, 11/17/18) Medication History Scheduled Amlodipine Besylate* (Amlodipine Besylate*), 10 MG ORAL DAILY, (Reported) Aspirin Ec* (Aspirin Ec*), 81 MG ORAL DAILY, (Reported) Atenolol* (Tenormin*), 50 MG ORAL TWICE A DAY, (Reported) Docusate Sodium* (Docusate Sodium*), 200 MG ORAL DAILY, (Reported) Duloxetine (Cymbalta), 20 MG ORAL DAILY, (Reported) Pyridoxine Hcl* (Vitamin B-6*), 25 MG ORAL DAILY, (Reported) Sevelamer Carbonate* (Renvela*), 800 MG ORAL THREE TIMES A DAY, (Reported) Vitamin B Cmplx/Vit C/Folic AC (Nephro-Trent Tablet), 1 TAB ORAL DAILY, (Reported ) Scheduled PRN Hydrocodone Bit/Acetaminophen 5-325* ([place] 5-325*), 1 TAB ORAL Q4H PRN for For Pain, (Reported) Tramadol Hcl* (Ultram*), 50 MG ORAL Q6H PRN for For Pain, (Reported) Miscellaneous Medications Insulin Lispro (Humalog), 0 SUBQ, (Reported) Linagliptin (Tradjenta), 5 MG PO, (Reported) Methoxy Peg-Epoetin Beta (Mircera), 100 MCG IJ, (Reported) [lipovitan], (Reported) [voncomycin ivpb], (Reported) Patient History Healthcare decision maker Resuscitation status Advanced Directive on File No Physical Exam Last 24 Hour Vital Signs Date Time Temp Pulse Resp B/P (MAP) Pulse Ox O2 Delivery O2 Flow Rate FiO2 11/21/18 13:55 78 20 100 Venturi Mask 10.0 45 11/21/18 13:42 78 18 99 Venturi Mask 10.0 45 11/21/18 12:41 141/97 11/21/18 12:00 97.7 67 20 141/97 (112) 98 11/21/18 09:00 65 103/51 11/21/18 09:00 Nasal Cannula 2.0 Nasal Cannula 2.0 11/21/18 08:00 98.3 65 18 103/51 (68) 97 11/21/18 07:18 77 20 100 Venturi Mask 10.0 45 11/21/18 07:06 80 20 99 Venturi Mask 10.0 45 11/21/18 07:05 Venturi Mask 10.0 45 11/21/18 07:05 99 Venturi Mask 10.0 45 11/21/18 06:00 108/55 11/21/18 04:00 97.8 68 18 110/56 (74) 94 11/21/18 00:12 69 20 94 Venturi Mask 12.0 50 11/21/18 00:05 120/61 11/21/18 00:02 76 18 90 Nasal Cannula 3.0 32 11/21/18 00:00 98.0 86 18 120/61 (80) 95 11/20/18 21:00 Nasal Cannula 2.0 Nasal Cannula 2.0 11/20/18 20:07 75 20 97 Nasal Cannula 3.0 32 11/20/18 20:00 98.1 74 20 131/77 (95) 95 11/20/18 19:57 72 18 94 Nasal Cannula 3.0 32 11/20/18 19:55 93 Nasal Cannula 3.0 32 11/20/18 19:55 Nasal Cannula 3.0 32 11/20/18 18:00 129/73 Intake and Output 11/20/18 11/21/18 19:00 07:00 Intake Total 490 ml 320 ml Balance 490 ml 320 ml Intake Oral 490 ml 120 ml IV Total 200 ml # Bowel Movements 4 Microbiology Date/Time Source Procedure Growth Status 11/20/18 20:30 Foot Right Gram Stain - Final Resulted 11/20/18 20:30 Foot Right Wound Culture Pending Resulted Height (Feet): 5 Height (Inches): 7.00 Weight (Pounds): 123 Medications Current Medications Medications (Trade) Dose Ordered Sig/Ronald Route PRN Reason Start Time Stop Time Status Last Admin Dose Admin Acetaminophen/ Hydrocodone Bitart ([place] 5/325) 1 tab Q4H PRN ORAL Severe Pain (Pain Scale 7-10) 11/20/18 18:50 11/23/18 18:49 Albuterol Sulfate (Proventil) 2.5 mg Q6HRT HHN 11/20/18 19:00 11/25/18 18:59 11/21/18 13:48 Amikacin Protocol (Amikacin pharmacy to dose) 1 ea DAILY PRN MISC Per rx protocol 11/21/18 09:00 12/18/18 12:14 Amikacin Sulfate 200 mg/Sodium Chloride 55.8 ml @ 110 mls/hr POSTHD@2000 IV 11/20/18 20:00 11/26/18 19:59 Amlodipine Besylate (Norvasc) 10 mg DAILY ORAL 11/21/18 09:00 12/17/18 08:59 Aspirin (Ecotrin) 81 mg DAILY ORAL 11/21/18 09:00 12/17/18 08:59 Dextrose (Dextrose 50%) 25 ml Q30M PRN IV Hypoglycemia 11/20/18 18:45 12/16/18 08:14 Dextrose (Dextrose 50%) 50 ml Q30M PRN IV Hypoglycemia 11/20/18 18:45 12/16/18 08:14 Diphenhydramine HCl (Benadryl) 50 mg Q6H PRN IM itching 11/20/18 18:49 12/16/18 18:48 Docusate Sodium (Colace) 200 mg DAILY ORAL 11/21/18 09:00 12/17/18 08:59 Duloxetine HCl (Cymbalta) 40 mg DAILY ORAL 11/21/18 09:00 12/20/18 08:59 Haloperidol Lactate (Haldol) 5 mg Q6H PRN IM Agitation 11/20/18 18:49 12/16/18 18:48 Heparin Sodium (Porcine) (Heparin 5000 units/ml) 5,000 units EVERY 12 HOURS SUBQ 11/20/18 21:00 12/16/18 20:59 11/20/18 21:04 Hydralazine HCl (Apresoline) 10 mg Q6HR ORAL 11/21/18 00:00 12/16/18 17:59 11/21/18 12:41 Insulin Aspart (NovoLOG) BEFORE MEALS AND HS SUBQ 11/20/18 21:00 12/16/18 11:29 Ipratropium [place] (Atrovent) 0.5 mcg Q6HRT HHN 11/20/18 19:00 11/25/18 18:59 11/21/18 13:48 Levofloxacin 100 ml @ 100 mls/hr Q48H IVPB 11/21/18 23:00 11/24/18 22:59 Lorazepam (Ativan 2mg/ml 1ml) 2 mg Q4H PRN IM For Anxiety 11/20/18 18:50 11/23/18 18:49 Metronidazole 100 ml @ 100 mls/hr Q8HR IVPB 11/20/18 22:00 11/27/18 13:59 11/21/18 14:15 Pyridoxine HCl (Vitamin B6) 25 mg DAILY ORAL 11/21/18 09:00 12/17/18 08:59 Sevelamer Carbonate (Renvela) 1,600 mg THREE TIMES A DAY ORAL 11/21/18 09:00 12/16/18 12:59 11/21/18 12:41 Tramadol HCl (Ultram) 50 mg Q6H PRN ORAL Moderate Pain (Pain Scale 4-6) 11/20/18 18:51 11/23/18 18:50 Vancomycin HCl (Vanco rx to dose) 1 ea DAILY PRN MISC Per rx protocol 11/21/18 09:00 12/16/18 08:14 Vitamin B Complex/ Vit C/Folic Acid (Nephrovite) 1 tab DAILY ORAL 11/21/18 09:00 12/17/18 08:59 Assessment/Plan Assessment/Plan Hematology Consultation REQ MD: Oniel Piersonmadelyn Date patient seen: Nov 21, 2018 Reason for Hospitalization: Dyspnea/Respdistress RFC: Hyperproteinemia, anemia, low plts, leukocytosis HPI 67 yo male with h/o dm, esrd, htn presents from SNF due to shortness of breath and desaturating on room air. Patient receives HD, last on Monday. Denies any chest pain, no n/v, denies any headaches, denies abd pain/nausea/vomiting. states he is compliant with medications. Requiring 4L ncl supplemental O2 to saturate above 90%, was low 80s high 70s on room air. bnp was high on admission , this is his first one and heme was consulted, other lab work is pending, has been seen by several other services/consultants and their notes reviewed. Social hx reviewed: denies smoking, alcohol use or drug use Past fam hx reviewed: denies any sig past fam hx Code status reviewed: full code Allergies: PHENYTOIN (Verified Allergy, Unknown, 10/17/18) Uncoded Allergies: PENICILLIN (Allergy, Unknown, 10/17/18) Meds Amlodipine Besylate* (Amlodipine Besylate*), 10 MG ORAL DAILY, (Reported) Aspirin Ec* (Aspirin Ec*), 81 MG ORAL DAILY, (Reported) Atenolol* (Tenormin*), 50 MG ORAL TWICE A DAY, (Reported) Docusate Sodium* (Docusate Sodium*), 200 MG ORAL DAILY, (Reported) Duloxetine (Cymbalta), 20 MG ORAL DAILY, (Reported) Pyridoxine Hcl* (Vitamin B-6*), 25 MG ORAL DAILY, (Reported) Sevelamer Carbonate* (Renvela*), 800 MG ORAL THREE TIMES A DAY, (Reported) Vitamin B Cmplx/Vit C/Folic AC (Nephro-Trent Tablet), 1 TAB ORAL DAILY, (Reported ) Scheduled PRN Hydrocodone Bit/Acetaminophen 5-325* ([place] 5-325*), 1 TAB ORAL Q4H PRN for For Pain, (Reported) Tramadol Hcl* (Ultram*), 50 MG ORAL Q6H PRN for For Pain, (Reported) Miscellaneous Medications Insulin Lispro (Humalog), 0 SUBQ, (Reported) Linagliptin (Tradjenta), 5 MG PO, (Reported) Methoxy Peg-Epoetin Beta (Mircera), 100 MCG IJ, (Reported) [lipovitan], (Reported) [voncomycin ivpb], (Reported) Healthcare decision maker Resuscitation status Full Code Advanced Directive on File ROS: Constitutional: No fever, no chills, no night sweats, no fatigue Skin: No rashes, lumps, itchiness, dryness HEENT: No CARRERA, ear ache, visual changes, double vision, nosebleeds, sore throat, lumps, swollen glands Breasts: No lumps, pain, discharge Pulmonary: No cough, sputum, shortness of breath, coughing up blood, hemoptysis Cardiovascular: No chest pain, tightness, palpitations, syncope, claudication, orthopnea, PND GI: No nausea, vomiting, diarrhea, melena, hematochezia, change in appetite, abdominal pain : No dysuria, frequency, urgency, urinary incontinence, foamy urine Musculoskeletal: No joint swelling or muscle pain, trauma, back pain Neurologic: No dizziness, fainting, seizures, changes in smell or taste Psychiatric: No nervousness, stress, or depression, anxiety, hallucinations Endocrine: No weight change, heat or cold intolerance, tremor Physical Exam: General Appearance: A+O x3, NAD HEENT: normocephalic, atraumatic Neck: non-tender, normal alignment Respiratory/Chest: chest wall non-tender, lungs clear Cardiovascular/Chest: normal peripheral pulses, normal rate Abdomen: normal bowel sounds, non tender Extremities: normal range of motion ++ left bka Last 24 Hour Vital Signs Date Time Temp Pulse Resp B/P (MAP) Pulse Ox O2 Delivery O2 Flow Rate FiO2 11/21/18 13:55 78 20 100 Venturi Mask 10.0 45 11/21/18 13:42 78 18 99 Venturi Mask 10.0 45 11/21/18 12:41 141/97 11/21/18 12:00 97.7 67 20 141/97 (112) 98 11/21/18 09:00 65 103/51 11/21/18 09:00 Nasal Cannula 2.0 Nasal Cannula 2.0 11/21/18 08:00 98.3 65 18 103/51 (68) 97 11/21/18 07:18 77 20 100 Venturi Mask 10.0 45 11/21/18 07:06 80 20 99 Venturi Mask 10.0 45 11/21/18 07:05 Venturi Mask 10.0 45 11/21/18 07:05 99 Venturi Mask 10.0 45 11/21/18 06:00 108/55 11/21/18 04:00 97.8 68 18 110/56 (74) 94 11/21/18 00:12 69 20 94 Venturi Mask 12.0 50 11/21/18 00:05 120/61 11/21/18 00:02 76 18 90 Nasal Cannula 3.0 32 11/21/18 00:00 98.0 86 18 120/61 (80) 95 11/20/18 21:00 Nasal Cannula 2.0 Nasal Cannula 2.0 11/20/18 20:07 75 20 97 Nasal Cannula 3.0 32 11/20/18 20:00 98.1 74 20 131/77 (95) 95 11/20/18 19:57 72 18 94 Nasal Cannula 3.0 32 11/20/18 19:55 93 Nasal Cannula 3.0 32 11/20/18 19:55 Nasal Cannula 3.0 32 11/20/18 18:00 129/73 Labs reviewed Assessment/Plan # Leukocytosis reviewed prior trend is relatively new onset --> flow cytometry has been ordered, takes 3-4 business days for results to come back --> IgG in the past has been elevated pointing to likely inflammatory cause --> esr and crp elevated --> skeletal survey ordered to r/o multiple myeloma --> IgA and IgM ordered along with serum and urin immunofix # Anemia of chronic disease due to underlying chronic medical issues, multifactorial --> Anemia w/u has been ordered --> No evidence of hemolysis is noted, peripheral smear has been reviewed. --> Hgb goal >7. Transfuse prn. --> epogen if gets HD, ferritin is 1801 at this time --> renal recs appreciated # Thrombocytopenia - potential causes multifactorial, evaluate liver and viral etiologies to begin, also could be related to underlying medications patient has received. hep and hiv neg, us does show some liver disease --> Peripheral smear ordered to evaluate for blasts /schistocytes --> abx and other meds have been reviewed --> ok for ppx if plt >50k w/ either heparin or lovenox --> Transfuse if Plt < 20k and fever, or if Plt < 10k without fever # Hyperproteinemia -- with elevated protein --> skeletal survey ordered to r/o multiple myeloma --> IgA and IgM ordered along with serum and urin immunofix # Anemia of kidney disease -- with esrd to see renal --> epo can consider as per renal # Acute Hypoxic respiratory Failure potentially due to Fluid Overload --> as per cards # ESRD on HD --> desating to low 80s high 70s on room air, requiring 4L ncl supplemental o2 --> fluid overloaded, patient has esrd on hd MWF, nephrology consulted, plan for HD soon --> hx noncompliance # Essential HTN --> resume home meds --> monitor closely # DMII --> iss --> accuchecks The timing of this note does not necessarily reflect the time of the patient was seen Greatly appreciate consultation! Vadim Márquez MD Nov 21, 2018 16:49
[2018-11-21] MEDS: AMIKACIN IV SCH (17:14)
[2018-11-21] MEDS: NS IV SCH (17:14)
--- NOTE | 2018-11-21 17:24 | Nephrology Progress Note ---
Assessment/Plan Problem List: (1) ESRD (end stage renal disease) on dialysis (2) Bradycardia (3) Anemia (4) Leukocytosis Assessment: persists Assessment (1) ESRD (end stage renal disease) right arm fistula (2) Fluid overload, unspecified (3) Bradycardia (4) Anemia (5) Pleural effusion (6) Persistant Leukocytosis Plan dialysed earlier today Kayexelate for high K as needed at times refuses care and meds ! adjust BP meds 2D Echo pending stop beta blockers on hydralazin and procardia per consultants Subjective ROS Limited/Unobtainable: No Constitutional: Reports: malaise Objective Objective Last 24 Hour Vital Signs Date Time Temp Pulse Resp B/P (MAP) Pulse Ox O2 Delivery O2 Flow Rate FiO2 11/21/18 16:00 98.1 68 23 126/57 (80) 94 11/21/18 13:55 78 20 100 Venturi Mask 10.0 45 11/21/18 13:42 78 18 99 Venturi Mask 10.0 45 11/21/18 12:41 141/97 11/21/18 12:00 97.7 67 20 141/97 (112) 98 11/21/18 09:00 65 103/51 11/21/18 09:00 Nasal Cannula 2.0 Nasal Cannula 2.0 11/21/18 08:00 98.3 65 18 103/51 (68) 97 11/21/18 07:18 77 20 100 Venturi Mask 10.0 45 11/21/18 07:06 80 20 99 Venturi Mask 10.0 45 11/21/18 07:05 Venturi Mask 10.0 45 11/21/18 07:05 99 Venturi Mask 10.0 45 11/21/18 06:00 108/55 11/21/18 04:00 97.8 68 18 110/56 (74) 94 11/21/18 00:12 69 20 94 Venturi Mask 12.0 50 11/21/18 00:05 120/61 11/21/18 00:02 76 18 90 Nasal Cannula 3.0 32 11/21/18 00:00 98.0 86 18 120/61 (80) 95 11/20/18 21:00 Nasal Cannula 2.0 Nasal Cannula 2.0 11/20/18 20:07 75 20 97 Nasal Cannula 3.0 32 11/20/18 20:00 98.1 74 20 131/77 (95) 95 11/20/18 19:57 72 18 94 Nasal Cannula 3.0 32 11/20/18 19:55 93 Nasal Cannula 3.0 32 11/20/18 19:55 Nasal Cannula 3.0 32 11/20/18 18:00 129/73 Intake and Output 11/20/18 11/21/18 19:00 07:00 Intake Total 490 ml 320 ml Balance 490 ml 320 ml Intake Oral 490 ml 120 ml IV Total 200 ml # Bowel Movements 4 Laboratory Tests 11/21/18 17:00: Random Vancomycin Level [Pending] Height (Feet): 5 Height (Inches): 7.00 Weight (Pounds): 123 General Appearance: no apparent distress Objective no change Alessandro Price MD Nov 21, 2018 17:24
[2018-11-21] MEDS ORDERED: NS 275ml ONE (18:16)
[2018-11-21] MEDS ORDERED: Tubing IV Secondary IV ONE ×2 (18:16→20:49)
--- NOTE | 2018-11-21 18:56 | NUR ---
CASE MANAGEMENT:REVIEW 11/21/18 SI: SEPSIS T 98.1 HR 68 RR 23 B/P 126/57 SATS 94% ON 10L/VENTURI MASK NO LABS TODAY IS: NORVASC PO QD ASA PO QD CYMBALTA PO QD INSULIN ASPART SUBQ AC/HS VANCO IV X1 AMIKACIN IV POST HD LEVOFLOXACIN IV Q48H HYDRALAZINE PO Q6H : MED/SURG STATUS DCP: FROM [facility] OSEI
--- NOTE | 2018-11-21 19:31 | NUR ---
HAND-OFF: Report given to SONG Claros.
--- NOTE | 2018-11-21 19:55 | NUR ---
NURSE NOTES: Patient in bed awake and alert, no distress noted. Turned and repositioned, kept clean and dry. Call light within reach.
[2018-11-21 20:00] VITALS: BP 112/65
[2018-11-21] MEDS ORDERED: Vancomycin 750mg/NS 275ml IVPB ONE ×2 (21:00)
[2018-11-21] MEDS: Norco 5mg/325mg tab ORAL PRN (22:30)
[2018-11-22] VITALS: BP 108/61
[2018-11-22] MEDS: Albuterol ud Inhalation HHN SCH ×4 (01:16→19:30)
[2018-11-22] MEDS: Ipratropium 0.02% Inh Soln 2.5ml UD HHN SCH ×4 (01:16→19:30)
[2018-11-22 04:00] VITALS: BP 109/59
[2018-11-22] MEDS: HydrALAZINE 10mg Tab ORAL SCH ×4 (06:00→18:24)
[2018-11-22] MEDS: NovoLOG Insulin Flexpen SUBQ SCH ×4 (06:14→21:00)
--- NOTE | 2018-11-22 07:22 | NUR ---
HAND-OFF: Report given to Kash ZULETA.
--- NOTE | 2018-11-22 07:35 | NUR ---
NURSE NOTES: Received patient on bed, asleep. IV site intact and patent. Dressing dry and secure. Bed in low and locked position, call light in reach. No signs of respiratory distress or pain. Room board updated, will continue to monitor.
[2018-11-22 08:00] VITALS: BP 97/62
[2018-11-22 08:30] LABS: HEMOGLOBIN 10.3 G/DL (14.2-18.0); MEAN CORPUSCULAR VOLUME 105 FL (80-99); PLATELET COUNT 183 K/UL (150-450); RED BLOOD COUNT 3.15 M/UL (4.70-6.10); RED CELL DISTRIBUTION WIDTH 15.6 % (11.6-14.8)
[2018-11-22] MEDS: Pyridoxine 50mg tab ORAL SCH (08:43)
[2018-11-22] MEDS: Docusate 100mg cap ORAL SCH (08:43)
[2018-11-22] MEDS: Nephrovite tab (Rena-Vite) ORAL SCH (08:44)
[2018-11-22] MEDS: Aspirin EC 81mg tab ORAL SCH (08:44)
[2018-11-22] MEDS: Heparin 5000 units/ml inj SUBQ SCH ×2 (08:45→21:00)
--- NOTE | 2018-11-22 08:45 | NUR ---
NURSE NOTES: Patient refused AM labs and vitals. I was able to obtain lab and vitals. patient refusing venturi mask. Risks versus benefits explained, and patient placed mask on . Patient states he wants to and not be in the hospital. Will notify MD Patel.
[2018-11-22 08:55] LABS: PHOSPHORUS 4.6 MG/DL (2.5-4.9)
[2018-11-22 09:03] LABS: ALANINE AMINOTRANSFERASE 9 U/L (12-78); ALBUMIN 2.1 G/DL (3.4-5.0); ALBUMIN/GLOBULIN RATIO 0.4 (1.0-2.7); ALKALINE PHOSPHATASE 230 U/L (46-116); ANION GAP 10 mmol/L (5-15); ASPARTATE AMINO TRANSFERASE 12 U/L (15-37); BILIRUBIN,TOTAL 1.4 MG/DL (0.2-1.0); BLOOD UREA NITROGEN 68 mg/dL (7-18); CALCIUM 9.2 MG/DL (8.5-10.1); CARBON DIOXIDE 26 MMOL/L (21-32); CHLORIDE 97 MMOL/L (98-107); CREATININE 4.5 MG/DL (0.55-1.30); SODIUM 133 MMOL/L (136-145)
[2018-11-22 09:10] LABS: WHITE BLOOD COUNT 32.4 K/UL (4.8-10.8)
[2018-11-22 09:22] LABS: BILIRUBIN,DIRECT 0.9 MG/DL (0.0-0.3)
--- NOTE | 2018-11-22 10:54 | General Progress Note ---
Assessment/Plan Problem List: (1) Acute metabolic encephalopathy ICD Codes: G93.41 - Metabolic encephalopathy SNOMED: 46770262, [id number] (2) MDD (3) Anxiety disorder ICD Codes: F41.9 - Anxiety disorder, unspecified SNOMED: 037024220 Status: doing well, stable, progressing Assessment/Plan Cymbalta 40mg po qam the pt may not leave ama the pt agreed to blood draw today Seroquel 25mg po qhs Subjective Neurologic/Psychiatric: Reports: anxiety Allergies: Coded Allergies: PHENYTOIN (Verified Allergy, Unknown, 10/17/18) Uncoded Allergies: PENICILLIN (Allergy, Mild, 11/17/18) Subjective the pt was uncooperative today the pt refused all the labs and vitals today he stated "let me " he agreed to labs, vitals and meds later the pt wants to leave and "go home" Objective Last 24 Hour Vital Signs Date Time Temp Pulse Resp B/P (MAP) Pulse Ox O2 Delivery O2 Flow Rate FiO2 11/22/18 08:10 81 18 98 Nasal Cannula 2.0 28 11/22/18 07:58 Venturi Mask 10.0 45 11/22/18 07:58 95 Venturi Mask 10.0 45 11/22/18 07:58 82 18 95 Venturi Mask 10.0 45 11/22/18 06:00 106/60 11/22/18 04:00 97.5 69 20 109/59 (76) 98 11/22/18 01:28 75 18 99 Venturi Mask 10.0 45 11/22/18 01:17 72 18 95 Venturi Mask 10.0 45 11/22/18 00:00 98.2 70 20 108/61 (77) 95 11/22/18 00:00 108/61 11/21/18 21:00 Venturi Mask 14.0 11/21/18 20:00 98.2 72 21 112/65 (81) 94 11/21/18 19:39 76 18 98 Venturi Mask 10.0 45 11/21/18 19:28 Venturi Mask 10.0 45 11/21/18 19:28 94 Venturi Mask 10.0 45 11/21/18 19:28 74 18 94 Venturi Mask 10.0 45 11/21/18 18:08 126/57 11/21/18 16:00 98.1 68 23 126/57 (80) 94 11/21/18 13:55 78 20 100 Venturi Mask 10.0 45 11/21/18 13:42 78 18 99 Venturi Mask 10.0 45 11/21/18 12:41 141/97 11/21/18 12:00 97.7 67 20 141/97 (112) 98 Intake and Output 11/21/18 11/22/18 19:00 07:00 Intake Total 155.8 ml 675.000 ml Output Total 2000 ml Balance -1844.2 ml 675.000 ml Intake Oral 100 ml IV Total 155.8 ml 575.000 ml Hemodialysis UF 2000 ml Laboratory Tests 11/21/18 17:00: Random Vancomycin Level 19.2 11/22/18 08:15: White Blood Count 32.4*H, Red Blood Count 3.15L, Hemoglobin 10.3L, Hematocrit 33.0L, Mean Corpuscular Volume 105H, Mean Corpuscular Hemoglobin 32.7H, Mean Corpuscular Hemoglobin Concent 31.2L, Red Cell Distribution Width 15.6H, Platelet Count 183, Mean Platelet Volume 8.4, Neutrophils (%) (Auto) , Lymphocytes (%) (Auto) , Monocytes (%) (Auto) , Eosinophils (%) (Auto) , Basophils (%) (Auto) , Neutrophils % (Manual) [Pending], Lymphocytes % (Manual) [Pending], Platelet Estimate [Pending], Platelet Morphology [Pending], Sodium Level 133L, Potassium Level 4.0, Chloride Level 97L, Carbon Dioxide Level 26, Anion Gap 10, Blood Urea Nitrogen 68H, Creatinine 4.5H, Estimat Glomerular Filtration Rate 13.2, Glucose Level 126H, Calcium Level 9.2, Phosphorus Level 4.6, Magnesium Level 2.4, Total Bilirubin 1.4H, Direct Bilirubin 0.9H, Aspartate Amino Transf (AST/SGOT) 12L, Alanine Aminotransferase (ALT/SGPT) 9L, Alkaline Phosphatase 230H, Total Protein 7.8, Albumin 2.1L, Globulin 5.7, Albumin/Globulin Ratio 0.4L, Carcinoembryonic Antigen [Pending], CA 15-3 Antigen [Pending], CA 19-9 Antigen [Pending], Immunoglobulin G [Pending], Immunoglobulin A [Pending], Immunoglobulin M [Pending], Immunofixation Screen [ Pending] Height (Feet): 5 Height (Inches): 7.00 Weight (Pounds): 122 General Appearance: WD/WN, no apparent distress, alert Neurologic: oriented x 3, responsive, depressed affect Francisco Patel MD Nov 22, 2018 10:54
--- NOTE | 2018-11-22 10:54 | NUR ---
NURSE NOTES: Left meswsage for MD Vinson for WBC count 32.4. Charge nurse aware. Awaiting call back.
--- NOTE | 2018-11-22 10:57 | NUR ---
NURSE NOTES: MD Vinson returned call. No new orders, aware.
--- NOTE | 2018-11-22 11:15 | NUR ---
NURSE NOTES: Advised MD cornelius and charge nurse of patient statements.
[2018-11-22 13:24] VITALS: BP 108/63
--- NOTE | 2018-11-22 14:55 | Nephrology Progress Note ---
Assessment/Plan Problem List: (1) ESRD (end stage renal disease) on dialysis (2) Bradycardia (3) Anemia (4) Leukocytosis Assessment: persists Assessment (1) ESRD (end stage renal disease) right arm fistula (2) Fluid overload, unspecified (3) Bradycardia (4) Anemia (5) Pleural effusion (6) Persistant Leukocytosis Plan dialysed 11/21 next 11/24 Kayexelate for high K as needed at times refuses care and meds ! adjust BP meds 2D Echo pending stop beta blockers on hydralazin and procardia per consultants Subjective ROS Limited/Unobtainable: No Constitutional: Reports: malaise Objective Objective Last 24 Hour Vital Signs Date Time Temp Pulse Resp B/P (MAP) Pulse Ox O2 Delivery O2 Flow Rate FiO2 11/22/18 14:10 87 18 99 Nasal Cannula 2.0 28 11/22/18 13:55 84 18 96 Venturi Mask 10.0 45 11/22/18 13:32 108/63 11/22/18 13:24 98.2 67 18 108/63 (78) 96 11/22/18 09:00 Venturi Mask 14.0 Venturi Mask 12.0 11/22/18 08:10 81 18 98 Nasal Cannula 2.0 28 11/22/18 08:00 97.7 71 18 97/62 (74) 92 11/22/18 07:58 Venturi Mask 10.0 45 11/22/18 07:58 95 Venturi Mask 10.0 45 11/22/18 07:58 82 18 95 Venturi Mask 10.0 45 11/22/18 06:00 106/60 11/22/18 04:00 97.5 69 20 109/59 (76) 98 11/22/18 01:28 75 18 99 Venturi Mask 10.0 45 11/22/18 01:17 72 18 95 Venturi Mask 10.0 45 11/22/18 00:00 98.2 70 20 108/61 (77) 95 11/22/18 00:00 108/61 11/21/18 21:00 Venturi Mask 14.0 11/21/18 20:00 98.2 72 21 112/65 (81) 94 11/21/18 19:39 76 18 98 Venturi Mask 10.0 45 11/21/18 19:28 Venturi Mask 10.0 45 11/21/18 19:28 94 Venturi Mask 10.0 45 11/21/18 19:28 74 18 94 Venturi Mask 10.0 45 11/21/18 18:08 126/57 11/21/18 16:00 98.1 68 23 126/57 (80) 94 Intake and Output 11/21/18 11/22/18 19:00 07:00 Intake Total 155.8 ml 675.000 ml Output Total 2000 ml Balance -1844.2 ml 675.000 ml Intake Oral 100 ml IV Total 155.8 ml 575.000 ml Hemodialysis UF 2000 ml Laboratory Tests 11/21/18 17:00: Random Vancomycin Level 19.2 11/22/18 08:15: White Blood Count 32.4*H, Red Blood Count 3.15L, Hemoglobin 10.3L, Hematocrit 33.0L, Mean Corpuscular Volume 105H, Mean Corpuscular Hemoglobin 32.7H, Mean Corpuscular Hemoglobin Concent 31.2L, Red Cell Distribution Width 15.6H, Platelet Count 183, Mean Platelet Volume 8.4, Neutrophils (%) (Auto) , Lymphocytes (%) (Auto) , Monocytes (%) (Auto) , Eosinophils (%) (Auto) , Basophils (%) (Auto) , Differential Total Cells Counted 100, Neutrophils % ( Manual) 93H, Lymphocytes % (Manual) 1L, Monocytes % (Manual) 6, Eosinophils % ( Manual) 0, Basophils % (Manual) 0, Band Neutrophils 0, Platelet Estimate Adequate, Platelet Morphology Normal, Hypochromasia 1+, Anisocytosis 1+, Macrocytosis 1+, Sodium Level 133L, Potassium Level 4.0, Chloride Level 97L, Carbon Dioxide Level 26, Anion Gap 10, Blood Urea Nitrogen 68H, Creatinine 4.5H , Estimat Glomerular Filtration Rate 13.2, Glucose Level 126H, Calcium Level 9.2 , Phosphorus Level 4.6, Magnesium Level 2.4, Total Bilirubin 1.4H, Direct Bilirubin 0.9H, Aspartate Amino Transf (AST/SGOT) 12L, Alanine Aminotransferase (ALT/SGPT) 9L, Alkaline Phosphatase 230H, Total Protein 7.8, Albumin 2.1L, Globulin 5.7, Albumin/Globulin Ratio 0.4L, Carcinoembryonic Antigen [Pending], CA 15-3 Antigen [Pending], CA 19-9 Antigen [Pending], Immunoglobulin G [Pending] , Immunoglobulin A [Pending], Immunoglobulin M [Pending], Immunofixation Screen [Pending] Height (Feet): 5 Height (Inches): 7.00 Weight (Pounds): 122 General Appearance: no apparent distress, lethargic Cardiovascular: normal rate Respiratory/Chest: decreased breath sounds Abdomen: soft Objective no change Alessandro Price MD Nov 22, 2018 14:55
--- NOTE | 2018-11-22 15:14 | General Progress Note ---
Assessment/Plan Assessment/Plan #Acute hypoxic respiratory failure #Fluid overload -stable resp status -continue HD as per Nephrology -continue to monitor BMP, renal function #Leukocytosis #Sepsis #HCAP, gram negative pneumonia -persistent leukocytosis despite IV antibiotics -Hematology eval appreciated -continue broad spectrum antibiotics -continue to monitor WBC -ID and Surgery following #Non-compliance with HD and medications #Depression #Mood disorder #lacks decision making capacity per psychiatry -continue current psychotropics -psychiatry following I spent 45 minutes on this patient's case, and 25 minutes was dedicated to counseling and/or care coordination. Subjective Date patient seen: Nov 22, 2018 Time patient seen: 09:00 ROS Limited/Unobtainable: No Cardiovascular: Reports: chest pain Respiratory: Reports: cough Gastrointestinal/Abdominal: Reports: abdomen distended, abdominal pain Allergies: Coded Allergies: PHENYTOIN (Verified Allergy, Unknown, 10/17/18) Uncoded Allergies: PENICILLIN (Allergy, Mild, 11/17/18) Subjective Medicine follow up for acute hypoxic respiratory failure, fluid overload, noncompliance with HD, HCAP Worsening leukocytosis despite antibiotics Objective Last 24 Hour Vital Signs Date Time Temp Pulse Resp B/P (MAP) Pulse Ox O2 Delivery O2 Flow Rate FiO2 11/22/18 14:10 87 18 99 Nasal Cannula 2.0 28 11/22/18 13:55 84 18 96 Venturi Mask 10.0 45 11/22/18 13:32 108/63 11/22/18 13:24 98.2 67 18 108/63 (78) 96 11/22/18 09:00 Venturi Mask 14.0 Venturi Mask 12.0 11/22/18 08:10 81 18 98 Nasal Cannula 2.0 28 11/22/18 08:00 97.7 71 18 97/62 (74) 92 11/22/18 07:58 Venturi Mask 10.0 45 11/22/18 07:58 95 Venturi Mask 10.0 45 11/22/18 07:58 82 18 95 Venturi Mask 10.0 45 11/22/18 06:00 106/60 11/22/18 04:00 97.5 69 20 109/59 (76) 98 11/22/18 01:28 75 18 99 Venturi Mask 10.0 45 11/22/18 01:17 72 18 95 Venturi Mask 10.0 45 11/22/18 00:00 98.2 70 20 108/61 (77) 95 11/22/18 00:00 108/61 11/21/18 21:00 Venturi Mask 14.0 11/21/18 20:00 98.2 72 21 112/65 (81) 94 11/21/18 19:39 76 18 98 Venturi Mask 10.0 45 11/21/18 19:28 Venturi Mask 10.0 45 11/21/18 19:28 94 Venturi Mask 10.0 45 11/21/18 19:28 74 18 94 Venturi Mask 10.0 45 11/21/18 18:08 126/57 11/21/18 16:00 98.1 68 23 126/57 (80) 94 Intake and Output 11/21/18 11/22/18 19:00 07:00 Intake Total 155.8 ml 675.000 ml Output Total 2000 ml Balance -1844.2 ml 675.000 ml Intake Oral 100 ml IV Total 155.8 ml 575.000 ml Hemodialysis UF 2000 ml Laboratory Tests 11/21/18 17:00: Random Vancomycin Level 19.2 11/22/18 08:15: White Blood Count 32.4*H, Red Blood Count 3.15L, Hemoglobin 10.3L, Hematocrit 33.0L, Mean Corpuscular Volume 105H, Mean Corpuscular Hemoglobin 32.7H, Mean Corpuscular Hemoglobin Concent 31.2L, Red Cell Distribution Width 15.6H, Platelet Count 183, Mean Platelet Volume 8.4, Neutrophils (%) (Auto) , Lymphocytes (%) (Auto) , Monocytes (%) (Auto) , Eosinophils (%) (Auto) , Basophils (%) (Auto) , Differential Total Cells Counted 100, Neutrophils % ( Manual) 93H, Lymphocytes % (Manual) 1L, Monocytes % (Manual) 6, Eosinophils % ( Manual) 0, Basophils % (Manual) 0, Band Neutrophils 0, Platelet Estimate Adequate, Platelet Morphology Normal, Hypochromasia 1+, Anisocytosis 1+, Macrocytosis 1+, Sodium Level 133L, Potassium Level 4.0, Chloride Level 97L, Carbon Dioxide Level 26, Anion Gap 10, Blood Urea Nitrogen 68H, Creatinine 4.5H , Estimat Glomerular Filtration Rate 13.2, Glucose Level 126H, Calcium Level 9.2 , Phosphorus Level 4.6, Magnesium Level 2.4, Total Bilirubin 1.4H, Direct Bilirubin 0.9H, Aspartate Amino Transf (AST/SGOT) 12L, Alanine Aminotransferase (ALT/SGPT) 9L, Alkaline Phosphatase 230H, Total Protein 7.8, Albumin 2.1L, Globulin 5.7, Albumin/Globulin Ratio 0.4L, Carcinoembryonic Antigen [Pending], CA 15-3 Antigen [Pending], CA 19-9 Antigen [Pending], Immunoglobulin G [Pending] , Immunoglobulin A [Pending], Immunoglobulin M [Pending], Immunofixation Screen [Pending] Height (Feet): 5 Height (Inches): 7.00 Weight (Pounds): 122 General Appearance: no apparent distress, alert Neck: non-tender, normal alignment Cardiovascular: normal rate, regular rhythm Respiratory/Chest: lungs clear, normal breath sounds Abdomen: non tender, soft Shivam Plascencia MD Nov 22, 2018 15:14
--- NOTE | 2018-11-22 15:19 | NUR ---
NURSE NOTES: Contacted [facility] and advised of MD Acharya order for HD on 11/24/18.
--- NOTE | 2018-11-22 16:33 | Surgery Progress Note ---
Surgery Progress Note Subjective Symptoms: voiding well, passing flatus, BM Objective Last 24 Hour Vital Signs Date Time Temp Pulse Resp B/P (MAP) Pulse Ox O2 Delivery O2 Flow Rate FiO2 11/22/18 14:10 87 18 99 Nasal Cannula 2.0 28 11/22/18 13:55 84 18 96 Venturi Mask 10.0 45 11/22/18 13:32 108/63 11/22/18 13:24 98.2 67 18 108/63 (78) 96 11/22/18 09:00 Venturi Mask 14.0 Venturi Mask 12.0 11/22/18 08:10 81 18 98 Nasal Cannula 2.0 28 11/22/18 08:00 97.7 71 18 97/62 (74) 92 11/22/18 07:58 Venturi Mask 10.0 45 11/22/18 07:58 95 Venturi Mask 10.0 45 11/22/18 07:58 82 18 95 Venturi Mask 10.0 45 11/22/18 06:00 106/60 11/22/18 04:00 97.5 69 20 109/59 (76) 98 11/22/18 01:28 75 18 99 Venturi Mask 10.0 45 11/22/18 01:17 72 18 95 Venturi Mask 10.0 45 11/22/18 00:00 98.2 70 20 108/61 (77) 95 11/22/18 00:00 108/61 11/21/18 21:00 Venturi Mask 14.0 11/21/18 20:00 98.2 72 21 112/65 (81) 94 11/21/18 19:39 76 18 98 Venturi Mask 10.0 45 11/21/18 19:28 Venturi Mask 10.0 45 11/21/18 19:28 94 Venturi Mask 10.0 45 11/21/18 19:28 74 18 94 Venturi Mask 10.0 45 11/21/18 18:08 126/57 I&O Intake and Output 11/21/18 11/22/18 19:00 07:00 Intake Total 155.8 ml 675.000 ml Output Total 2000 ml Balance -1844.2 ml 675.000 ml Intake Oral 100 ml IV Total 155.8 ml 575.000 ml Hemodialysis UF 2000 ml Dressing: other Wound: other Drains: other Cardiovascular: RSR Respiratory: clear Abdomen: soft, present bowel sounds Extremities: other Laboratory Tests Test 11/21/18 17:00 11/22/18 08:15 Random Vancomycin Level 19.2 ug/mL White Blood Count 32.4 K/UL (4.8-10.8) *H Red Blood Count 3.15 M/UL (4.70-6.10) L Hemoglobin 10.3 G/DL (14.2-18.0) L Hematocrit 33.0 % (42.0-52.0) L Mean Corpuscular Volume 105 FL (80-99) H Mean Corpuscular Hemoglobin 32.7 PG (27.0-31.0) H Mean Corpuscular Hemoglobin Concent 31.2 G/DL (32.0-36.0) L Red Cell Distribution Width 15.6 % (11.6-14.8) H Platelet Count 183 K/UL (150-450) Mean Platelet Volume 8.4 FL (6.5-10.1) Neutrophils (%) (Auto) % (45.0-75.0) Lymphocytes (%) (Auto) % (20.0-45.0) Monocytes (%) (Auto) % (1.0-10.0) Eosinophils (%) (Auto) % (0.0-3.0) Basophils (%) (Auto) % (0.0-2.0) Differential Total Cells Counted 100 Neutrophils % (Manual) 93 % (45-75) H Lymphocytes % (Manual) 1 % (20-45) L Monocytes % (Manual) 6 % (1-10) Eosinophils % (Manual) 0 % (0-3) Basophils % (Manual) 0 % (0-2) Band Neutrophils 0 % (0-8) Platelet Estimate Adequate Platelet Morphology Normal Hypochromasia 1+ Anisocytosis 1+ Macrocytosis 1+ Sodium Level 133 MMOL/L (136-145) L Potassium Level 4.0 MMOL/L (3.5-5.1) Chloride Level 97 MMOL/L (98-107) L Carbon Dioxide Level 26 MMOL/L (21-32) Anion Gap 10 mmol/L (5-15) Blood Urea Nitrogen 68 mg/dL (7-18) H Creatinine 4.5 MG/DL (0.55-1.30) H Estimat Glomerular Filtration Rate 13.2 mL/min (>60) Glucose Level 126 MG/DL (74-106) H Calcium Level 9.2 MG/DL (8.5-10.1) Phosphorus Level 4.6 MG/DL (2.5-4.9) Magnesium Level 2.4 MG/DL (1.8-2.4) Total Bilirubin 1.4 MG/DL (0.2-1.0) H Direct Bilirubin 0.9 MG/DL (0.0-0.3) H Aspartate Amino Transf (AST/SGOT) 12 U/L (15-37) L Alanine Aminotransferase (ALT/SGPT) 9 U/L (12-78) L Alkaline Phosphatase 230 U/L (46-116) H Total Protein 7.8 G/DL (6.4-8.2) Albumin 2.1 G/DL (3.4-5.0) L Globulin 5.7 g/dL Albumin/Globulin Ratio 0.4 (1.0-2.7) L Carcinoembryonic Antigen Pending CA 15-3 Antigen Pending CA 19-9 Antigen Pending Immunoglobulin G Pending Immunoglobulin A Pending Immunoglobulin M Pending Immunofixation Screen Pending Plan Problems: (1) Decubitus ulcer of right heel, stage 4 Assessment & Plan: Pt presents with full thickness stage 4 ulcer R heel which he has had for months (L)3cm x (W)2.5cm and 1cm deep. moderate slough noted to base of of wound ,otherwise romeo and moist.Bone palpable .(+) maceration along borders.Periwound fluctuant without erythema. 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 Plan: Cleanse R heel wound with Saline.Apply Therahoney to wound. Apply Cavilon Skin Barrier along borders and Periwound.Cover with Abd and wrap with Kerlix Daily and prn. Apply Benzoin Tincture Swab to R 1st metatarsal and wrap with Kerlix Daily and prn. Apply Moisture Barrier Paste to sacral area .Cover with Optifoam drsg .Change every 3 days and prn. Off-load R heel with pillow. Encourage and assist as needed with repositioning at least every 2hours or as tolerated. (2) Hx of BKA (3) Dyspnea (4) Sepsis Assessment & Plan: persistent leukocytosis sepsis labs noted Right basilar consolidation and perihilar infiltrates. Pneumonia certainly a consideration. Correlate clinically. Extensive calcifications throughout the lungs. Consider old granulomatous disease. Moderate to severe ascites. Atrophied kidneys consistent with end-stage renal disease. Extensive vascular disease. SVC stent. Anasarca Umbilical hernia Cont Abx; likely pna Heme Consult Damian Michaels Nov 22, 2018 16:33
[2018-11-22 16:52] VITALS: BP 114/60
--- NOTE | 2018-11-22 17:01 | Diagnostic Imaging Report ---
Indication: History of multiple myeloma, evaluation for skeletal extent Technique: Limited radiographs of the axial and appendicular skeleton Comparison: none Findings: Chest radiograph demonstrates dense in the right innominate and right axillary veins. Interstitial disease is similar to prior chest radiograph of the previous day. No definite rib or thoracic spine lesion is demonstrated. No osteolytic abnormality is seen within the pelvis, bilateral femurs, right tibia or fibula. Patient is status post left [id number] amputation. The cervical spine demonstrates mild degenerative spondylosis, no osteolytic lesions. Bilateral forearms demonstrate extensive vascular calcification, no evidence of osteolytic lesion. No thoracic or lumbar osteolytic lesions. There are mild degenerative changes of the lumbar spine. No calvarial lesions are demonstrated. No humeral osteolytic lesions are demonstrated.. Impression: No definite plain radiographic evidence of osteolytic lesions to suggest multiple myeloma demonstrated Incidental findings as noted
--- NOTE | 2018-11-22 19:27 | NUR ---
HAND-OFF: Report given to SONG Arroyo.
[2018-11-22 20:00] VITALS: BP 98/54
--- NOTE | 2018-11-22 20:23 | NUR ---
NURSE NOTES: Patient in bed, awake, alert and verbally responsive. Patient is on venturi mask. No complaint of pain or discomfort noted. Lower leg dressing noted. IV site noted, intact. Bed in low and locked position. Provided safe environment. Call light is at bedside. Will continue plan of care.
--- NOTE | 2018-11-22 21:17 | General Progress Note ---
Assessment/Plan Assessment/Plan Assessment/Plan # Leukocytosis reviewed prior trend is relatively new onset --> flow cytometry has been ordered, takes 3-4 business days for results to come back --> IgG in the past has been elevated pointing to likely inflammatory cause --> esr and crp elevated --> skeletal survey ordered to r/o multiple myeloma --> IgA and IgM ordered along with serum and urin immunofix # Anemia of chronic disease due to underlying chronic medical issues, multifactorial --> Anemia w/u has been ordered --> No evidence of hemolysis is noted, peripheral smear has been reviewed. --> Hgb goal >7. Transfuse prn. --> epogen if gets HD, ferritin is 1801 at this time --> renal recs appreciated # Thrombocytopenia - potential causes multifactorial, evaluate liver and viral etiologies to begin, also could be related to underlying medications patient has received. hep and hiv neg, us does show some liver disease --> Peripheral smear ordered to evaluate for blasts /schistocytes --> abx and other meds have been reviewed --> ok for ppx if plt >50k w/ either heparin or lovenox --> Transfuse if Plt < 20k and fever, or if Plt < 10k without fever # Hyperproteinemia -- with elevated protein --> skeletal survey ordered to r/o multiple myeloma --> IgA and IgM ordered along with serum and urin immunofix # Anemia of kidney disease -- with esrd to see renal --> epo can consider as per renal # Acute Hypoxic respiratory Failure potentially due to Fluid Overload --> as per cards # ESRD on HD --> desating to low 80s high 70s on room air, requiring 4L ncl supplemental o2 --> fluid overloaded, patient has esrd on hd MWF, nephrology consulted, plan for HD soon --> hx noncompliance # Essential HTN --> resume home meds --> monitor closely # DMII --> iss --> accuchecks The timing of this note does not necessarily reflect the time of the patient was seen Greatly appreciate consultation! Subjective Constitutional: Denies: no symptoms, chills, diaphoresis, fever, malaise, weakness, other HEENT: Denies: no symptoms, eye pain, blurred vision, tearing, double vision, ear pain, ear discharge, nose pain, nose congestion, throat pain, throat swelling, mouth pain, mouth swelling, other Cardiovascular: Denies: no symptoms, chest pain, edema, irregular heart rate, lightheadedness, palpitations, syncope, other Respiratory: Denies: no symptoms, cough, orthopnea, shortness of breath, SOB with excertion, SOB at rest, sputum, stridor, wheezing, other Gastrointestinal/Abdominal: Denies: no symptoms, abdomen distended, abdominal pain, black stools, tarry stools, blood in stool, constipated, diarrhea, difficulty swallowing, nausea, poor appetite, poor fluid intake, rectal bleeding , vomiting, other Genitourinary: Denies: no symptoms, burning, discharge, frequency, flank pain, hematuria, incontinence, pain, urgency, other Neurologic/Psychiatric: Denies: no symptoms, anxiety, depressed, emotional problems, headache, numbness, paresthesia, pre-existing deficit, seizure, tingling, tremors, weakness, other Endocrine: Denies: no symptoms, excessive sweating, flushing, intolerance to cold, intolerance to heat, increased hunger, increased thirst, increased urine, unexplained weight gain, unexplained weight loss, other Allergies: Coded Allergies: PHENYTOIN (Verified Allergy, Unknown, 10/17/18) Uncoded Allergies: PENICILLIN (Allergy, Mild, 11/17/18) Subjective 11/22: seen by bedside, noncompliance with HD, HCAP, worsening leukocytosis despite antibiotics, wbc 32.4, Objective Last 24 Hour Vital Signs Date Time Temp Pulse Resp B/P (MAP) Pulse Ox O2 Delivery O2 Flow Rate FiO2 11/22/18 19:39 79 18 98 Venturi Mask 10.0 45 11/22/18 19:33 96 Venturi Mask 10.0 45 11/22/18 19:33 Venturi Mask 10.0 45 11/22/18 19:30 71 18 96 Venturi Mask 10.0 45 11/22/18 18:24 114/60 11/22/18 16:52 98.4 71 18 114/60 (78) 92 11/22/18 14:10 87 18 99 Nasal Cannula 2.0 28 11/22/18 13:55 84 18 96 Venturi Mask 10.0 45 11/22/18 13:32 108/63 11/22/18 13:24 98.2 67 18 108/63 (78) 96 11/22/18 09:00 Venturi Mask 14.0 Venturi Mask 12.0 11/22/18 08:10 81 18 98 Nasal Cannula 2.0 28 11/22/18 08:00 97.7 71 18 97/62 (74) 92 11/22/18 07:58 Venturi Mask 10.0 45 11/22/18 07:58 95 Venturi Mask 10.0 45 11/22/18 07:58 82 18 95 Venturi Mask 10.0 45 11/22/18 06:00 106/60 11/22/18 04:00 97.5 69 20 109/59 (76) 98 11/22/18 01:28 75 18 99 Venturi Mask 10.0 45 11/22/18 01:17 72 18 95 Venturi Mask 10.0 45 11/22/18 00:00 98.2 70 20 108/61 (77) 95 11/22/18 00:00 108/61 Intake and Output 11/21/18 11/22/18 19:00 07:00 Intake Total 155.8 ml 675.000 ml Output Total 2000 ml Balance -1844.2 ml 675.000 ml Intake Oral 100 ml IV Total 155.8 ml 575.000 ml Hemodialysis UF 2000 ml Laboratory Tests 11/22/18 08:15: White Blood Count 32.4*H, Red Blood Count 3.15L, Hemoglobin 10.3L, Hematocrit 33.0L, Mean Corpuscular Volume 105H, Mean Corpuscular Hemoglobin 32.7H, Mean Corpuscular Hemoglobin Concent 31.2L, Red Cell Distribution Width 15.6H, Platelet Count 183, Mean Platelet Volume 8.4, Neutrophils (%) (Auto) , Lymphocytes (%) (Auto) , Monocytes (%) (Auto) , Eosinophils (%) (Auto) , Basophils (%) (Auto) , Differential Total Cells Counted 100, Neutrophils % ( Manual) 93H, Lymphocytes % (Manual) 1L, Monocytes % (Manual) 6, Eosinophils % ( Manual) 0, Basophils % (Manual) 0, Band Neutrophils 0, Platelet Estimate Adequate, Platelet Morphology Normal, Hypochromasia 1+, Anisocytosis 1+, Macrocytosis 1+, Sodium Level 133L, Potassium Level 4.0, Chloride Level 97L, Carbon Dioxide Level 26, Anion Gap 10, Blood Urea Nitrogen 68H, Creatinine 4.5H , Estimat Glomerular Filtration Rate 13.2, Glucose Level 126H, Calcium Level 9.2 , Phosphorus Level 4.6, Magnesium Level 2.4, Total Bilirubin 1.4H, Direct Bilirubin 0.9H, Aspartate Amino Transf (AST/SGOT) 12L, Alanine Aminotransferase (ALT/SGPT) 9L, Alkaline Phosphatase 230H, Total Protein 7.8, Albumin 2.1L, Globulin 5.7, Albumin/Globulin Ratio 0.4L, Carcinoembryonic Antigen [Pending], CA 15-3 Antigen [Pending], CA 19-9 Antigen [Pending], Immunoglobulin G [Pending] , Immunoglobulin A [Pending], Immunoglobulin M [Pending], Immunofixation Screen [Pending] Height (Feet): 5 Height (Inches): 7.00 Weight (Pounds): 122 Objective Physical Exam: General Appearance: A+O x3, NAD HEENT: normocephalic, atraumatic Neck: non-tender, normal alignment Respiratory/Chest: chest wall non-tender, lungs clear Cardiovascular/Chest: normal peripheral pulses, normal rate Abdomen: normal bowel sounds, non tender Extremities: normal range of motion ++ left lelanda Vadim Márquez MD Nov 22, 2018 21:17
[2018-11-22] MEDS: NS IV SCH (21:23)
[2018-11-22] MEDS: AMIKACIN IV SCH (21:23)
[2018-11-23] VITALS: BP 124/56
[2018-11-23] MEDS: HydrALAZINE 10mg Tab ORAL SCH ×2 (00:58→05:56)
[2018-11-23] MEDS: Norco 5mg/325mg tab ORAL PRN (01:04)
[2018-11-23] MEDS: Albuterol ud Inhalation HHN SCH ×3 (01:51→12:14)
[2018-11-23] MEDS: Ipratropium 0.02% Inh Soln 2.5ml UD HHN SCH ×3 (01:51→12:14)
[2018-11-23 04:00] VITALS: BP 102/49
--- NOTE | 2018-11-23 04:00 | NUR ---
NURSE NOTES: Patient refused, dressing changed. Patient agitated, will ask again. Dressing is intact.
[2018-11-23] MEDS: NovoLOG Insulin Flexpen SUBQ SCH (05:56)
--- NOTE | 2018-11-23 05:57 | NUR ---
NURSE NOTES: Patient refused lab draws, will ask again in a later time. REfused dressing changed, informed of the risks and benefits, still refused.
--- NOTE | 2018-11-23 07:19 | NUR ---
HAND-OFF: Report given to SONG Cabral.
[2018-11-23 08:00] VITALS: BP 100/41
--- NOTE | 2018-11-23 08:50 | NUR ---
NURSE NOTES: Patient is responsive to voice. Patient has no reports of discomfort. Side rails are up X2. Bed is locked and in lowest position. Patient is on venturi mask. Will continue to monitor.
[2018-11-23 09:00] VITALS: BP 100/41
[2018-11-23] MEDS: Heparin 5000 units/ml inj SUBQ SCH (09:00)
[2018-11-23] MEDS ORDERED: Aztreonam Inj 1 GM in D5W 55 ML IVPB SCH (09:00)
[2018-11-23] MEDS: Docusate 100mg cap ORAL SCH (09:28)
[2018-11-23] MEDS: Aspirin EC 81mg tab ORAL SCH (09:29)
[2018-11-23] MEDS: Pyridoxine 50mg tab ORAL SCH (09:29)
[2018-11-23] MEDS: Nephrovite tab (Rena-Vite) ORAL SCH (09:29)
[2018-11-23] MEDS ORDERED: LEVAQUIN500 MG ORAL (09:38)
[2018-11-23] MEDS ORDERED: METRONIDAZOLE500 MG ORAL (09:38)
--- NOTE | 2018-11-23 09:49 | Discharge Summary ---
Discharge Summary Hospital Course Date of Admission Nov 15, 2018 at 23:07 Date of Discharge 11/23 Admitting Diagnosis SOB, CHF HPI Emile Weber is a 68 year old male who was admitted on Nov 15, 2018 at 23: 07 for Shortness Of Breath/Congestive Heart Failure Hospital Course Patient presented from the alf with multifactorial acute hypoxic respiratory failure from fluid overload in the setting of ESRD and severe sepsis from right basal HCAP. He was admitted to the medical service, seen by Nephrology and was dialyzed to remove fluid. Also treated with broad spectrum antibiotics as per ID recommendations with gradual improvement in sepsis. Seen by general surgery/wound care who felt that chronic pressure ulcers were not infected. Despite being treated with broad spectrum antibiotics he had persistent leukocytosis attributed to leukemoid reaction. He was seen by hematology for this, studies pending at the time of discharge and patient will follow up with Dr. Vadim Márquez as an outpatient. He will need to have repeat CBC in one week. Patient will be discharged on Levaquin and Flagyl for another 5 days. #Acute hypoxic respiratory failure #Fluid overload -stable resp status -continue HD as outpatient #Leukocytosis #Sepsis #HCAP, gram negative pneumonia -persistent leukocytosis despite IV antibiotics likely leukemoid reaction -change to 4 more days of oral antibiotic -outpatient hemoatlogy following #Non-compliance with HD and medications #Depression #Mood disorder #lacks decision making capacity per psychiatry -resolved I spent 35 minutes on this patient's case in preparing discharge, coordinating with nursing, case management and instructional design consultant MDs Discharge Discharge Disposition Patient was discharged to SNF Discharge Diagnoses: (1) ESRD (end stage renal disease) on dialysis (2) Acute metabolic encephalopathy Shivam Plascencia MD Nov 23, 2018 09:49
--- NOTE | 2018-11-23 10:39 | NUR ---
*-*DISCHARGE PLANNING *-* PATIENT HAS RAFIA REFERRED BACK TO: [facility] P :[phone] F :[phone]
--- NOTE | 2018-11-23 11:01 | General Progress Note ---
Assessment/Plan Problem List: (1) Acute metabolic encephalopathy ICD Codes: G93.41 - Metabolic encephalopathy SNOMED: 23512029, 452796154 (2) MDD (3) Anxiety disorder ICD Codes: F41.9 - Anxiety disorder, unspecified SNOMED: 316262909 Status: not improved, unchanged Assessment/Plan Cymbalta 40mg po qam the pt may not leave ama Seroquel 25mg po qhs Subjective Neurologic/Psychiatric: Reports: anxiety, depressed, emotional problems Allergies: Coded Allergies: PHENYTOIN (Verified Allergy, Unknown, 10/17/18) Uncoded Allergies: PENICILLIN (Allergy, Mild, 11/17/18) Subjective the pt was more cooperative refuses meds at times the pt cont to be depressed Objective Last 24 Hour Vital Signs Date Time Temp Pulse Resp B/P (MAP) Pulse Ox O2 Delivery O2 Flow Rate FiO2 11/23/18 09:00 75 100/41 11/23/18 08:00 97.8 75 20 100/41 (60) 95 11/23/18 07:38 78 17 99 Room Air 21 11/23/18 07:28 79 15 93 Room Air 93 11/23/18 07:28 93 Room Air 21 11/23/18 07:28 Room Air 21 11/23/18 05:56 102/49 11/23/18 04:00 98.6 72 18 102/49 (66) 100 11/23/18 02:01 77 18 99 Venturi Mask 10.0 45 11/23/18 01:51 74 18 94 Venturi Mask 10.0 45 11/23/18 00:58 124/56 11/23/18 00:00 98.9 75 19 124/56 (78) 96 11/22/18 21:00 Venturi Mask 12.0 Venturi Mask 12.0 11/22/18 20:00 98.2 75 18 98/54 (69) 91 11/22/18 19:39 79 18 98 Venturi Mask 10.0 45 11/22/18 19:33 96 Venturi Mask 10.0 45 11/22/18 19:33 Venturi Mask 10.0 45 11/22/18 19:30 71 18 96 Venturi Mask 10.0 45 11/22/18 18:24 114/60 11/22/18 16:52 98.4 71 18 114/60 (78) 92 11/22/18 14:10 87 18 99 Nasal Cannula 2.0 28 11/22/18 13:55 84 18 96 Venturi Mask 10.0 45 11/22/18 13:32 108/63 11/22/18 13:24 98.2 67 18 108/63 (78) 96 Intake and Output 11/22/18 11/23/18 19:00 07:00 Intake Total 1000 ml 155.8 ml Balance 1000 ml 155.8 ml IV Total 155.8 ml Other 1000 ml # Voids 1 Height (Feet): 5 Height (Inches): 7.00 Weight (Pounds): 125 General Appearance: WD/WN, alert, moderate distress Francisco Patel MD Nov 23, 2018 11:01
--- NOTE | 2018-11-23 11:26 | Surgery Progress Note ---
Surgery Progress Note Subjective Additional Comments no acute events. leukocytosis. otherwise improved. Objective Last 24 Hour Vital Signs Date Time Temp Pulse Resp B/P (MAP) Pulse Ox O2 Delivery O2 Flow Rate FiO2 11/23/18 09:00 75 100/41 11/23/18 08:45 Venturi Mask 12.0 Venturi Mask 12.0 11/23/18 08:00 97.8 75 20 100/41 (60) 95 11/23/18 07:38 78 17 99 Room Air 21 11/23/18 07:28 79 15 93 Room Air 93 11/23/18 07:28 93 Room Air 21 11/23/18 07:28 Room Air 21 11/23/18 05:56 102/49 11/23/18 04:00 98.6 72 18 102/49 (66) 100 11/23/18 02:01 77 18 99 Venturi Mask 10.0 45 11/23/18 01:51 74 18 94 Venturi Mask 10.0 45 11/23/18 00:58 124/56 11/23/18 00:00 98.9 75 19 124/56 (78) 96 11/22/18 21:00 Venturi Mask 12.0 Venturi Mask 12.0 11/22/18 20:00 98.2 75 18 98/54 (69) 91 11/22/18 19:39 79 18 98 Venturi Mask 10.0 45 11/22/18 19:33 96 Venturi Mask 10.0 45 11/22/18 19:33 Venturi Mask 10.0 45 11/22/18 19:30 71 18 96 Venturi Mask 10.0 45 11/22/18 18:24 114/60 11/22/18 16:52 98.4 71 18 114/60 (78) 92 11/22/18 14:10 87 18 99 Nasal Cannula 2.0 28 11/22/18 13:55 84 18 96 Venturi Mask 10.0 45 11/22/18 13:32 108/63 11/22/18 13:24 98.2 67 18 108/63 (78) 96 I&O Intake and Output 11/22/18 11/23/18 19:00 07:00 Intake Total 1000 ml 155.8 ml Balance 1000 ml 155.8 ml IV Total 155.8 ml Other 1000 ml # Voids 1 Dressing: saturated Wound: clean Drains: other Cardiovascular: RSR Respiratory: clear Abdomen: soft, non-tender, non-distended Extremities: other Plan Problems: (1) Decubitus ulcer of right heel, stage 4 Assessment & Plan: Pt presents with full thickness stage 4 ulcer R heel which he has had for months (L)3cm x (W)2.5cm and 1cm deep. moderate slough noted to base of of wound ,otherwise romeo and moist.Bone palpable .(+) maceration along borders.Periwound fluctuant without erythema. 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 Plan: Cleanse R heel wound with Saline.Apply Therahoney to wound. Apply Cavilon Skin Barrier along borders and Periwound.Cover with Abd and wrap with Kerlix Daily and prn. Apply Benzoin Tincture Swab to R 1st metatarsal and wrap with Kerlix Daily and prn. Apply Moisture Barrier Paste to sacral area .Cover with Optifoam drsg .Change every 3 days and prn. Off-load R heel with pillow. Encourage and assist as needed with repositioning at least every 2hours or as tolerated. (2) Hx of BKA (3) Dyspnea (4) Sepsis Assessment & Plan: persistent leukocytosis sepsis labs noted Right basilar consolidation and perihilar infiltrates. Pneumonia certainly a consideration. Correlate clinically. Extensive calcifications throughout the lungs. Consider old granulomatous disease. Moderate to severe ascites. Atrophied kidneys consistent with end-stage renal disease. Extensive vascular disease. SVC stent. Anasarca Umbilical hernia Cont Abx; likely pna Heme Consult appreciated wound stable and if anything improving okay to d/c from surgical standpoint Damian Michaels Nov 23, 2018 11:26
--- NOTE | 2018-11-23 11:32 | NUR ---
*-* DISCHARGE PLANNED *-* PATIENT IS DISCHARGED BACK TO:\ [facility] SKILLED T:[phone] FOR NURSER TO NURSE REPORT LIFELINE AMBU;ANCE HAS BEEN ARRANGED FOR HOURLY SIGN LANGUAGE INTERPRETER AT 1330 S/W MONE [id number] *-* NO FAMILY ON F/S TO NOTIFY *-*
--- NOTE | 2018-11-23 12:29 | Nephrology Progress Note ---
Assessment/Plan Problem List: (1) ESRD (end stage renal disease) on dialysis (2) Bradycardia (3) Anemia (4) Leukocytosis Assessment: persists Assessment (1) ESRD (end stage renal disease) right arm fistula (2) Fluid overload, unspecified (3) Bradycardia (4) Anemia (5) Pleural effusion (6) Persistant Leukocytosis Plan dialysed 11/21 next 11/24 Kayexelate for high K as needed at times refuses care and meds ! adjust BP meds stop beta blockers on hydralazin and procardia per consultants agree with DC planning and observe at ECF Subjective ROS Limited/Unobtainable: No Constitutional: Reports: malaise, weakness Objective Objective Last 24 Hour Vital Signs Date Time Temp Pulse Resp B/P (MAP) Pulse Ox O2 Delivery O2 Flow Rate FiO2 11/23/18 12:24 69 17 97 Nasal Cannula 2.0 28 11/23/18 12:14 69 16 90 Nasal Cannula 2.0 28 11/23/18 09:00 75 100/41 11/23/18 08:45 Venturi Mask 12.0 Venturi Mask 12.0 11/23/18 08:00 97.8 75 20 100/41 (60) 95 11/23/18 07:38 78 17 99 Room Air 21 11/23/18 07:28 79 15 93 Room Air 93 11/23/18 07:28 93 Room Air 21 11/23/18 07:28 Room Air 21 11/23/18 05:56 102/49 11/23/18 04:00 98.6 72 18 102/49 (66) 100 11/23/18 02:01 77 18 99 Venturi Mask 10.0 45 11/23/18 01:51 74 18 94 Venturi Mask 10.0 45 11/23/18 00:58 124/56 11/23/18 00:00 98.9 75 19 124/56 (78) 96 11/22/18 21:00 Venturi Mask 12.0 Venturi Mask 12.0 11/22/18 20:00 98.2 75 18 98/54 (69) 91 11/22/18 19:39 79 18 98 Venturi Mask 10.0 45 11/22/18 19:33 96 Venturi Mask 10.0 45 11/22/18 19:33 Venturi Mask 10.0 45 11/22/18 19:30 71 18 96 Venturi Mask 10.0 45 11/22/18 18:24 114/60 11/22/18 16:52 98.4 71 18 114/60 (78) 92 11/22/18 14:10 87 18 99 Nasal Cannula 2.0 28 11/22/18 13:55 84 18 96 Venturi Mask 10.0 45 11/22/18 13:32 108/63 11/22/18 13:24 98.2 67 18 108/63 (78) 96 Intake and Output 11/22/18 11/23/18 19:00 07:00 Intake Total 1000 ml 155.8 ml Balance 1000 ml 155.8 ml IV Total 155.8 ml Other 1000 ml # Voids 1 Height (Feet): 5 Height (Inches): 7.00 Weight (Pounds): 125 General Appearance: no apparent distress Objective no change Alessandro Price MD Nov 23, 2018 12:29
--- NOTE | 2018-11-23 14:06 | Diagnostic Imaging Report ---
Indication: Shortness of breath Technique: One view of the chest Comparison: 11/21/2018 Findings: Interim development of small left pleural effusion. Bilateral interstitial and airspace disease is unchanged. The heart is borderline enlarged. Impression: Finding of small left pleural effusion. Otherwise unchanged over 2 days including extensive bilateral pulmonary infiltrates versus edema
--- NOTE | 2018-11-23 14:40 | NUR ---
RD ASSESSMENT & RECOMMENDATIONS SEE CARE ACTIVITY FOR COMPLETE ASSESSMENT DAILY ESTIMATED NEEDS: Needs based on ESRD on HD, stage 4 wound 55.5kg 30-35 kcals/kg 7556-7895 total kcals 1.5-2.0 g protein/kg 83-111 g total protein Fluid per MD, on HD NUTRITION DIAGNOSIS: * Increased kcal and protein needs r/t wound healing and renal dysfunction as evidenced by pt w/ stage 4 R heel wound, w/ ESRD on HD. PO DIET RECOMMENDATIONS: RENAL DIET (texture as tolerated) ADDITIONAL RECOMMENDATIONS: 1) Wound healing: Nephrovite x 1, Sy 1pkt BID ZnSO4 220mg QD x 10 days 2) Monitor PO intake, variable appetite at this time 3) Add Nepro 1 tetra david BID in b/w meals 4) Monitor lytes- K elev, now wnl 5) Monitor BGs, need for carb controlled diet
--- NOTE | 2018-11-23 15:22 | NUR ---
NURSE NOTES: Patient discharged to [facility]. Patient discharged on nasal cannula. Patient's O2 saturation fluctuates between 77%-95%. Report given to Sonia at facility and made aware. Discharge packet with discharge instructions given to ambulance personnel. IV removed. Patient stable upon discharge.
--- NOTE | 2018-11-24 00:18 | General Progress Note ---
Assessment/Plan Assessment/Plan Assessment/Plan # Leukocytosis reviewed prior trend is relatively new onset --> flow cytometry has been ordered, takes 3-4 business days for results to come back --> IgG in the past has been elevated pointing to likely inflammatory cause --> esr and crp elevated --> skeletal survey ordered to r/o multiple myeloma --> IgA and IgM ordered along with serum and urin immunofix # Anemia of chronic disease due to underlying chronic medical issues, multifactorial --> Anemia w/u has been ordered --> No evidence of hemolysis is noted, peripheral smear has been reviewed. --> Hgb goal >7. Transfuse prn. --> epogen if gets HD, ferritin is 1801 at this time --> renal recs appreciated # Thrombocytopenia - potential causes multifactorial, evaluate liver and viral etiologies to begin, also could be related to underlying medications patient has received. hep and hiv neg, us does show some liver disease --> Peripheral smear ordered to evaluate for blasts /schistocytes --> abx and other meds have been reviewed --> ok for ppx if plt >50k w/ either heparin or lovenox --> Transfuse if Plt < 20k and fever, or if Plt < 10k without fever # Hyperproteinemia -- with elevated protein --> skeletal survey ordered to r/o multiple myeloma --> IgA and IgM ordered along with serum and urin immunofix # Anemia of kidney disease -- with esrd to see renal --> epo can consider as per renal # Acute Hypoxic respiratory Failure potentially due to Fluid Overload --> as per cards # ESRD on HD --> desating to low 80s high 70s on room air, requiring 4L ncl supplemental o2 --> fluid overloaded, patient has esrd on hd MWF, nephrology consulted, plan for HD soon --> hx noncompliance # Essential HTN --> resume home meds --> monitor closely # DMII --> iss --> accuchecks The timing of this note does not necessarily reflect the time of the patient was seen Greatly appreciate consultation! Subjective Date patient seen: Nov 23, 2018 ROS Limited/Unobtainable: Yes Allergies: Coded Allergies: PHENYTOIN (Verified Allergy, Unknown, 10/17/18) Uncoded Allergies: PENICILLIN (Allergy, Mild, 11/17/18) Subjective 11/22: seen by bedside, noncompliance with HD, HCAP, worsening leukocytosis despite antibiotics, wbc 32.4, 11/23: seen by bedside, awake comfortable, leukocytosis Objective Last 24 Hour Vital Signs Date Time Temp Pulse Resp B/P (MAP) Pulse Ox O2 Delivery O2 Flow Rate FiO2 11/23/18 12:24 69 17 97 Nasal Cannula 2.0 28 11/23/18 12:14 69 16 90 Nasal Cannula 2.0 28 11/23/18 09:00 75 100/41 11/23/18 08:45 Venturi Mask 12.0 Venturi Mask 12.0 11/23/18 08:00 97.8 75 20 100/41 (60) 95 11/23/18 07:38 78 17 99 Room Air 21 11/23/18 07:28 79 15 93 Room Air 93 11/23/18 07:28 93 Room Air 21 11/23/18 07:28 Room Air 21 11/23/18 05:56 102/49 11/23/18 04:00 98.6 72 18 102/49 (66) 100 11/23/18 02:01 77 18 99 Venturi Mask 10.0 45 11/23/18 01:51 74 18 94 Venturi Mask 10.0 45 11/23/18 00:58 124/56 Height (Feet): 5 Height (Inches): 7.00 Weight (Pounds): 125 Objective Physical Exam: General Appearance: A+O x3, NAD HEENT: normocephalic, atraumatic Neck: non-tender, normal alignment Respiratory/Chest: chest wall non-tender, lungs clear Cardiovascular/Chest: normal peripheral pulses, normal rate Abdomen: normal bowel sounds, non tender Extremities: normal range of motion ++ left Vadim Rojas MD Nov 24, 2018 00:18
--- NOTE | 2018-11-24 20:24 | Cardiology Report ---
APPROVED REPORT EKG Measurement Heart [id number] Normal sinus rhythm Rightward axis Abnormal ECG
== END 2018-11-23 14:15 | DRG 871 ==
LOC: EDBD 21:21 → EMR 21:34 → 2E 23:07 → EDBEDREQ 11-16 08:04 → 2E 11-20 10:30 → 4E 11-20 18:41
PROC: 5A1D70Z Performance of Urinary Filtration, Intermittent, Less than 6 Hours Per Day (ICD-10-PCS; principal; 2018-11-17)
DX: A41.9 Sepsis, unspecified organism (principal); L89.614 Pressure ulcer of right heel, stage 4; N18.6 End stage renal disease; G93.41 Metabolic encephalopathy; J96.01 Acute respiratory failure with hypoxia; J15.6 Pneumonia due to other Gram-negative bacteria; I13.2 Hypertensive heart and chronic kidney disease with heart failure and with stage 5 chronic kidney disease, or end stage renal disease; R18.8 Other ascites; I50.9 Heart failure, unspecified; Z99.2 Dependence on renal dialysis; Y95 Nosocomial condition; Z91.15 Patient's noncompliance with renal dialysis; Z91.14 Patient's other noncompliance with medication regimen; Z89.512 Acquired absence of left leg below knee; F32.9 Major depressive disorder, single episode, unspecified; F39 Unspecified mood [affective] disorder; Z88.0 Allergy status to penicillin; Z88.8 Allergy status to other drugs, medicaments and biological substances; R00.1 Bradycardia, unspecified; D64.9 Anemia, unspecified; D63.1 Anemia in chronic kidney disease; F41.9 Anxiety disorder, unspecified; K42.9 Umbilical hernia without obstruction or gangrene
CPT/HCPCS: 36415; 71045; 71250; 74176; 77075; 80048; 80053; 80202; 82248; 82378; 82550; 82553; 82607; 82728; 82746; 82784; 82962; 83036; 83540; 83550; 83605; 83735; 83880; 84100; 84484; 84550; 85007; 85025; 85651; 86140; 86300; 86334; 86710; 87040; 87070; 87081; 87181; 87205; 93005; 94640; 94664; 94760; 96365; 96375; 99285; J1815

== ENCOUNTER 2018-12-04 19:02 | Inpatient (IN) | payer MEDICARE, OTHER ==
[~2018-12-04] VITALS: Ht 162.6 cm; Wt 57.6 kg
[~2018-12-04 19:02] MED LIST changes: +LEVAQUIN500 MG ORAL; +METRONIDAZOLE500 MG ORAL
[2018-12-04 19:05] VITALS: BP 126/70
--- NOTE | 2018-12-04 19:15 | NUR ---
ED Nurse Note: Patient min from [facility] c/o resp distress, at time of arrival patient was on a nonrebreather, patient was taken off nonrebreather then the patient desatted to 65%, patient blood sugar was also 53. D50 was given. patient presents with wounds on the right foot, below the knee amputation on the left knee, wound on the coccyx area, pictures were then taken, patient is able to respond to staff by pointing fingers and shaking head, patients eyes are PERRL. started IV line on patients left AC 20 gauge.
--- NOTE | 2018-12-04 19:15 | NUR ---
ED Nurse Note: Blood sugar of 53, patient desatted to 65% on room air. Dr. Jalloh notified and aware
[2018-12-04] MEDS: Ipratropium 0.02% Inh Soln 2.5ml UD HHN SCH ×3 (19:30→20:00)
[2018-12-04] MEDS: Albuterol ud Inhalation HHN SCH ×3 (19:30→20:00)
[2018-12-04 20:13] LABS: HEMATOCRIT 31.2 % (42.0-52.0); HEMOGLOBIN 9.4 G/DL (14.2-18.0); MEAN CORPUSCULAR VOLUME 106 FL (80-99); PLATELET COUNT 291 K/UL (150-450); RED BLOOD COUNT 2.94 M/UL (4.70-6.10); RED CELL DISTRIBUTION WIDTH 18.9 % (11.6-14.8)
[2018-12-04 20:14] LABS: WHITE BLOOD COUNT 28.1 K/UL (4.8-10.8)
[2018-12-04 20:26] LABS: APPEARANCE,URINE TURBID; BILIRUBIN, URINE NEGATIVE (NEGATIVE); GLUCOSE, URINE (UA) NEGATIVE (NEGATIVE); KETONES,URINE NEGATIVE (NEGATIVE); LEUKOCYTE ESTERASE ,URINE 3+ (NEGATIVE); NITRITE,URINE NEGATIVE (NEGATIVE); PH,URINE 7 (4.5-8.0); PROTEIN,URINE 3+ (NEGATIVE); UROBILINOGEN,URINE NORMAL MG/DL (0.0-1.0)
[2018-12-04 20:27] LABS: COLOR,URINE YELLOW
[2018-12-04 20:34] LABS: ANION GAP 8 mmol/L (5-15); BLOOD UREA NITROGEN 57 mg/dL (7-18); CALCIUM 9.3 MG/DL (8.5-10.1); CARBON DIOXIDE 28 MMOL/L (21-32); CHLORIDE 99 MMOL/L (98-107); CREATININE 3.8 MG/DL (0.55-1.30); POTASSIUM 5.2 MMOL/L (3.5-5.1); SODIUM 135 MMOL/L (136-145)
[2018-12-04 20:45] LABS: ALANINE AMINOTRANSFERASE 10 U/L (12-78); ALBUMIN 2.1 G/DL (3.4-5.0); ALBUMIN/GLOBULIN RATIO 0.3 (1.0-2.7); ALKALINE PHOSPHATASE 180 U/L (46-116); ASPARTATE AMINO TRANSFERASE 19 U/L (15-37); BILIRUBIN,TOTAL 4.3 MG/DL (0.2-1.0)
[2018-12-04 20:46] LABS: BILIRUBIN,DIRECT 3.5 MG/DL (0.0-0.3)
[2018-12-04] MEDS ORDERED: Vancomycin 1 GM in NS 275 ML IV ONE (21:15)
[2018-12-04] MEDS ORDERED: Aztreonam Inj 2 GM in NS 110 ML IV SCH (22:00)
--- NOTE | 2018-12-04 22:32 | Emergency Room Report ---
History of Present Illness General Chief Complaint: Generalized Weakness Source: EMS Present Illness HPI Patient presents emergency department today with acute onset of shortness of breath. Patient also noted to have decreased responsiveness appear to be more altered than usual. Patient is a unable provide much history. All the history was obtained from medical records. Symptoms is noted to be highly severe. Patient's currently on dialysis was dialyzed yesterday.No other modifying factors. No other associated signs and symptoms. No other complaints were noted. Allergies: Coded Allergies: PHENYTOIN (Verified Allergy, Unknown, 10/17/18) Uncoded Allergies: PENICILLIN (Allergy, Mild, 11/17/18) Patient History Past Medical History: DM, HTN, CHF, COPD, renal disease, dialysis PSxH Narrative AV fistula Social History Narrative stays at a shelter Reviewed Nursing Documentation: PMH: Agreed; PSxH: Agreed Nursing Documentation-PMH Past Medical History: No History, Except For Hx Hypertension: Yes Hx COPD: Yes Hx Diabetes: Yes Hx Cancer: No Hx Gastrointestinal Problems: No Hx Dialysis: Yes - Renal failure Hx Neurological Problems: Yes - aka amputation left leg, muscle weakness Hx Cerebrovascular Accident: Yes - CHF Review of Systems All Other Systems: limited - Poor mental status Physical Exam Vital Signs Date Time Temp Pulse Resp B/P (MAP) Pulse Ox O2 Delivery O2 Flow Rate FiO2 12/04/18 19:01 99.1 65 19 118/44 99 Nasal Cannula 2.0 12/04/18 19:55 100 Sp02 EP Interpretation: reviewed, normal General Appearance: alert, moderate distress, thin, Chronically Ill Head: atraumatic Eyes: bilateral eye normal inspection ENT: moist mucus membranes Neck: normal inspection, supple Respiratory: respiratory distress, decreased breath sounds, accessory muscle use, wheezing, expiration, inspiration Cardiovascular #1: regular rate, rhythm, no edema Gastrointestinal: normal inspection, normal bowel sounds, non tender, soft, no guarding, no hernia Musculoskeletal: normal inspection, back normal, normal range of motion Neurologic: normal inspection, alert, responsive, speech normal Psychiatric: normal inspection, judgement/insight normal, mood/affect normal Skin: normal inspection, normal color, no rash Medical Decision Making Diagnostic Impression: Primary Impression: Sepsis Additional Impression: Respiratory distress ER Course Patient presents emergency department today complaining of shortness of breath. Differential diagnoses include acute pneumonia, CHF, acute coronary syndrome, pneumothorax, asthma, COPD flare, just to name a few.Given the severity of the patient's presentation I felt this is a highly complex patient. This patient required extensive workup. Because severe he patient's presentation severity shortness breath patient was placed on BiPAP. Patient symptoms improved on BiPAP. Patient was given albuterol Atrovent. Laboratory workup was obtained. Patient was noted to be hypoglycemic prior to arrival therefore she was given D50 which improved symptoms. Patient's chest x-ray shows evidence infiltrate consistent with pneumonia. Patient was started on broad-spectrum IV antibiotics after blood cultures were obtained. Patient's lactic acid level was actually normal. Patient did not require fluid boluses because patient also is renal failure. Case was discussed in detail with admitting physician. Patient will be admitted to [facility] for further treatment. Labs Test 12/04/18 19:21 12/04/18 19:36 12/04/18 20:00 12/04/18 20:45 Arterial Blood pH 7.281 (7.350-7.450) Arterial Blood Partial Pressure CO2 51.7 mmHg (35.0-45.0) Arterial Blood Partial Pressure O2 324.4 mmHg (75.0-100.0) Arterial Blood HCO3 23.8 mmol/L (22.0-26.0) Arterial Blood Oxygen Saturation 99.6 % (95-100) Arterial Blood Base Excess -3.1 (-2-2) Jose Test Positive White Blood Count 28.1 K/UL (4.8-10.8) Red Blood Count 2.94 M/UL (4.70-6.10) Hemoglobin 9.4 G/DL (14.2-18.0) Hematocrit 31.2 % (42.0-52.0) Mean Corpuscular Volume 106 FL (80-99) Mean Corpuscular Hemoglobin 32.0 PG (27.0-31.0) Mean Corpuscular Hemoglobin Concent 30.1 G/DL (32.0-36.0) Red Cell Distribution Width 18.9 % (11.6-14.8) Platelet Count 291 K/UL (150-450) Mean Platelet Volume 8.9 FL (6.5-10.1) Neutrophils (%) (Auto) % (45.0-75.0) Lymphocytes (%) (Auto) % (20.0-45.0) Monocytes (%) (Auto) % (1.0-10.0) Eosinophils (%) (Auto) % (0.0-3.0) Basophils (%) (Auto) % (0.0-2.0) Differential Total Cells Counted 100 Neutrophils % (Manual) 90 % (45-75) Lymphocytes % (Manual) 4 % (20-45) Monocytes % (Manual) 5 % (1-10) Eosinophils % (Manual) 1 % (0-3) Basophils % (Manual) 0 % (0-2) Band Neutrophils 0 % (0-8) Platelet Estimate Adequate Platelet Morphology Normal Polychromasia 1+ Hypochromasia 2+ Anisocytosis 2+ Macrocytosis 3+ Sodium Level 135 MMOL/L (136-145) Potassium Level 5.2 MMOL/L (3.5-5.1) Chloride Level 99 MMOL/L (98-107) Carbon Dioxide Level 28 MMOL/L (21-32) Anion Gap 8 mmol/L (5-15) Blood Urea Nitrogen 57 mg/dL (7-18) Creatinine 3.8 MG/DL (0.55-1.30) Estimat Glomerular Filtration Rate 16.0 mL/min (>60) Glucose Level 51 MG/DL (74-106) Calcium Level 9.3 MG/DL (8.5-10.1) Total Bilirubin 4.3 MG/DL (0.2-1.0) Direct Bilirubin 3.5 MG/DL (0.0-0.3) Aspartate Amino Transf (AST/SGOT) 19 U/L (15-37) Alanine Aminotransferase (ALT/SGPT) 10 U/L (12-78) Alkaline Phosphatase 180 U/L (46-116) Troponin I 0.162 ng/mL (0.000-0.056) Pro-B-Type Natriuretic Peptide > 15263 pg/mL (0-125) Total Protein 8.2 G/DL (6.4-8.2) Albumin 2.1 G/DL (3.4-5.0) Globulin 6.1 g/dL Albumin/Globulin Ratio 0.3 (1.0-2.7) Lipase 78 U/L (73-393) Urine Color Yellow Urine Appearance Turbid Urine pH 7 (4.5-8.0) Urine Specific [place] 1.010 (1.005-1.035) Urine Protein 3+ (NEGATIVE) Urine Glucose (UA) Negative (NEGATIVE) Urine Ketones Negative (NEGATIVE) Urine Blood 5+ (NEGATIVE) Urine Nitrite Negative (NEGATIVE) Urine Bilirubin Negative (NEGATIVE) Urine Urobilinogen Normal MG/DL (0.0-1.0) Urine Leukocyte Esterase 3+ (NEGATIVE) Urine RBC Tntc /HPF (0 - 0) Urine WBC Tntc /HPF (0 - 0) Urine Squamous Epithelial Cells None /LPF (NONE/OCC) Urine Bacteria Many /HPF (NONE) Lactic Acid Level 1.30 mmol/L (0.4-2.0) EKG Diagnostic Results Rate: normal Rhythm: NSR ST Segments: no acute changes Rhythm Strip Diag. Results EP Interpretation: yes Rate: 69 Rhythm: NSR, no PVC's, no ectopy Chest X-Ray Diagnostic Results Chest X-Ray Diagnostic Results : Chest X-Ray Ordered: Yes # of Views/Limited/Complete: 1 View Indication: Shortness of Breath EP Interpretation: Yes Interpretation: other - Cardiomegaly, bilateral infiltrate and atelectasis. No free air. Impression: Other - Pneumonia Electronically Signed by: Electronically signed by Sunday Jalloh MD Last Vital Signs Date Time Temp Pulse Resp B/P (MAP) Pulse Ox O2 Delivery O2 Flow Rate FiO2 12/04/18 21:13 68 20 100 Bi-pap 100 12/04/18 19:05 99.1 126/70 12/04/18 19:01 2.0 Status: improved Disposition: ADMITTED INPATIENT Condition: Serious Referrals: Pam Andrade MD (PCP) Sunday Jalloh MD Dec 04, 2018 22:32
[2018-12-04 22:39] VITALS: BP 142/52
--- NOTE | 2018-12-04 22:48 | General Progress Note ---
Assessment/Plan Assessment/Plan [facility] An independent Hospitalist group, where every patient is our [facility] Internal Medicine and Hospitalist Overnight Note Please contact us at Please text me on Voalte from 8a-6p regarding any patient questions Please text "[email or web address]" on Voalte from 6p-8a Case discussed with ED Physician. Chart, labs, imaging, vitals and other flowsheets reviewed. Spoke to RN from SNF and reviewed prior notes from last [facility] admission. Patient sent from nursing facility 2/2 sob. last HD was yesterday and per ED patient does not appear volume overloaded. WBC of 28 is improved from last day of dc (>30) when care team suspected leukomoid reaction and agreed to observe patient off abx. Admitting Dx: severe sepsis likely 2/2 UTI with history of ESBL UTI. Plan overnight will be BIPAP, ertapenem, continue trending troponins and EKGs, doshi culture. Recommend consulting Cardiology, Nephrology, ID and other necessary specialty services in AM. There is no current acute indication for HD. Full admission orders completed. Full and complete H+P to follow Time of note may not reflect time of encounter. Signed: Lidia Hernandez DO [facility] Pager: [phone] 12/04/2018 10:42 PM Subjective Date patient seen: Dec 04, 2018 Allergies: Coded Allergies: PHENYTOIN (Verified Allergy, Unknown, 10/17/18) Uncoded Allergies: PENICILLIN (Allergy, Mild, 11/17/18) Objective Last 24 Hour Vital Signs Date Time Temp Pulse Resp B/P (MAP) Pulse Ox O2 Delivery O2 Flow Rate FiO2 12/04/18 22:39 99.1 77 20 142/52 100 Bi-pap 2.0 100 12/04/18 21:13 68 20 100 Bi-pap 100 12/04/18 21:04 68 20 97 Facial 100 12/04/18 20:55 68 22 100 Bi-pap 100 12/04/18 20:55 67 22 100 Bi-pap 100 12/04/18 20:32 66 24 100 Bi-pap 100 12/04/18 20:29 66 24 100 Bi-pap 100 12/04/18 20:05 68 23 100 Bi-pap 100 12/04/18 19:55 68 23 100 Facial 100 12/04/18 19:05 65 19 Bi-pap 12/04/18 19:05 99.1 77 19 126/70 99 Bi-pap 12/04/18 19:01 99.1 65 19 118/44 99 Nasal Cannula 2.0 Laboratory Tests 12/04/18 19:21: Arterial Blood pH 7.281L, Arterial Blood Partial Pressure CO2 51.7H, Arterial Blood Partial Pressure O2 324.4H, Arterial Blood HCO3 23.8, Arterial Blood Oxygen Saturation 99.6, Arterial Blood Base Excess -3.1L, Jose Test Positive 12/04/18 19:36: White Blood Count 28.1*H, Red Blood Count 2.94L, Hemoglobin 9.4L, Hematocrit 31.2L, Mean Corpuscular Volume 106H, Mean Corpuscular Hemoglobin 32.0H, Mean Corpuscular Hemoglobin Concent 30.1L, Red Cell Distribution Width 18.9H, Platelet Count 291, Mean Platelet Volume 8.9, Neutrophils (%) (Auto) , Lymphocytes (%) (Auto) , Monocytes (%) (Auto) , Eosinophils (%) (Auto) , Basophils (%) (Auto) , Differential Total Cells Counted 100, Neutrophils % ( Manual) 90H, Lymphocytes % (Manual) 4L, Monocytes % (Manual) 5, Eosinophils % ( Manual) 1, Basophils % (Manual) 0, Band Neutrophils 0, Platelet Estimate Adequate, Platelet Morphology Normal, Polychromasia 1+, Hypochromasia 2+, Anisocytosis 2+, Macrocytosis 3+, Sodium Level 135L, Potassium Level 5.2H, Chloride Level 99, Carbon Dioxide Level 28, Anion Gap 8, Blood Urea Nitrogen 57H , Creatinine 3.8H, Estimat Glomerular Filtration Rate 16.0, Glucose Level 51L, Calcium Level 9.3, Total Bilirubin 4.3H, Direct Bilirubin 3.5H, Aspartate Amino Transf (AST/SGOT) 19, Alanine Aminotransferase (ALT/SGPT) 10L, Alkaline Phosphatase 180H, Troponin I 0.162H, Pro-B-Type Natriuretic Peptide > 41360B, Total Protein 8.2, Albumin 2.1L, Globulin 6.1, Albumin/Globulin Ratio 0.3L, Lipase 78 12/04/18 20:00: Urine Color Yellow, Urine Appearance Turbid, Urine pH 7, Urine Specific [place] 1.010, Urine Protein 3+H, Urine Glucose (UA) Negative, Urine Ketones Negative, Urine Blood 5+H, Urine Nitrite Negative, Urine Bilirubin Negative, Urine Urobilinogen Normal, Urine Leukocyte Esterase 3+H, Urine RBC TntcH, Urine WBC TntcH, Urine Squamous Epithelial Cells None, Urine Bacteria ManyH 12/04/18 20:45: Lactic Acid Level 1.30 Height (Feet): 5 Height (Inches): 4.00 Weight (Pounds): 125 Lidia Hernandez DO Dec 04, 2018 22:48
[2018-12-04] MEDS ORDERED: Vancomycin 1 GM in D5W 275 ML IVPB ONE (23:00)
--- NOTE | 2018-12-04 23:45 | NUR ---
TRANSFER TO FLOOR: Patient transferred to SDU as ordered Report given to SONG Whitaker
[2018-12-05] VITALS (7 sets, daily range): BP systolic 98–127; BP diastolic 52–83
[2018-12-05] MEDS ORDERED: Ertapenem 0.5 GM in NS 55 ML IVPB SCH ×2
--- NOTE | 2018-12-05 00:10 | NUR ---
NURSE NOTES: Patient arrived via gurney from ED, report received from SONG Vidal. Patient is awake, alert and oriented x2. Patient attempts top refuse BiPAP but decided to put it back on. Belongings are accounted for at bedside, patient has been cleaned and changed. Wound pictures taken and uploaded. Wounds are cleaned and dressings changed. Will initiate plan of care.
--- NOTE | 2018-12-05 07:18 | NUR ---
HAND-OFF: Report given to SONG Wild and SONG Rajput.
--- NOTE | 2018-12-05 07:33 | NUR ---
RESPIRATORY NOTE: Patient received on BiPAP with current ordered settings. BiPAP is connected to a red outlet and the alarms are functional and audible. Took BiPAP mask off to reveal facial skin. There is no redness of facial skin breakdown noted. Added moisturizer to lips to prevent dryness and re-tapped face with extra layers of foam tape for skin protection. Placed back on BiPAP Patient tolerating well and maintaining oxygen saturation. Will continue to monitor.
--- NOTE | 2018-12-05 07:35 | NUR ---
NURSE NOTES: Received pt from SONG Mcdermott. Pt in stable condition AAOx2 on BiPap 12/5 FiO2 of 45%. Pt is NPO. Condom cath noted. DEEPTI AV Fistula noetd. Skin alterations noted. Pt is L AKA. L AC 20g IV noted and patent. Bed is in lowest position. Side rails up x 3. Call light within reach. Will monitor pt.
--- NOTE | 2018-12-05 08:41 | NUR ---
RADIOLOGY DEPT, CHEST X-RAY DONE..-P.DYE
--- NOTE | 2018-12-05 09:35 | NUR ---
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
--- NOTE | 2018-12-05 09:37 | History and Physical ---
History of Present Illness General Date patient seen: Dec 05, 2018 Reason for Hospitalization: Generalized Weakness Present Illness HPI 68 year old male with PMH of DM, ESRD on HD (MWF - Last 12/03/18), s/p BKA, L chronic pressure ulcer and PVD was transferred from SNF for acute onset of shortness of breath and altered mental status. Pt not answering questions, history obtained from EMR. In the ED, pt desaturated to 80%, improved with BIPAP. UA positive for UTI, Invanz for history of ESBL. Pt recently discharged from [facility], was treated for severe sepsis 2/2 HCAP, discharged with levaquin and flagyl. Pt also noted to have persistent leukocytosis, evaluated by hematology, attributed to leukomoid reaction. Allergies: Coded Allergies: PENICILLINS (Unverified Allergy, Mild, 12/05/18) PHENYTOIN (Verified Allergy, Unknown, 10/17/18) Uncoded Allergies: PENICILLIN (Allergy, Mild, 11/17/18) Medication History Scheduled Amlodipine Besylate* (Amlodipine Besylate*), 10 MG ORAL DAILY, (Reported) Aspirin Ec* (Aspirin Ec*), 81 MG ORAL DAILY, (Reported) Atenolol* (Tenormin*), 50 MG ORAL TWICE A DAY, (Reported) Docusate Sodium* (Docusate Sodium*), 200 MG ORAL DAILY, (Reported) Duloxetine (Cymbalta), 20 MG ORAL DAILY, (Reported) Levofloxacin* (Levaquin*), 250 MG ORAL DAILY Metronidazole* (Flagyl*), 500 MG ORAL EVERY 8 HOURS Pyridoxine Hcl* (Vitamin B-6*), 25 MG ORAL DAILY, (Reported) Sevelamer Carbonate* (Renvela*), 800 MG ORAL THREE TIMES A DAY, (Reported) Vitamin B Cmplx/Vit C/Folic AC (Nephro-Trent Tablet), 1 TAB ORAL DAILY, (Reported ) Scheduled PRN Hydrocodone Bit/Acetaminophen 5-325* ([place] 5-325*), 1 TAB ORAL Q4H PRN for For Pain, (Reported) Tramadol Hcl* (Ultram*), 50 MG ORAL Q6H PRN for For Pain, (Reported) Miscellaneous Medications Insulin Lispro (Humalog), 0 SUBQ, (Reported) Linagliptin (Tradjenta), 5 MG PO, (Reported) Methoxy Peg-Epoetin Beta (Mircera), 100 MCG IJ, (Reported) [lipovitan], (Reported) Patient History Limited by: medical condition History Provided By: Medical Record Healthcare decision maker N Resuscitation status Full Code Advanced Directive on File Review of Systems ROS Narrative Unable to obtain 2/2 mental status Physical Exam Physical Exam Narrative General: calm, not answering questions, appears stated age Head: normocephalic, without obvious abnormality, atraumatic Eyes: conjunctivae/corneas clear. PERRL, EOM's intact Throat: lips, mucosa, and tongue normal. MMM Neck: supple, symmetrical, trachea midline, and no JVD Lungs: decreased effort, no wheezing, crackles or rhonchi from anterior chest Heart: regular rate and rhythm, S1, S2 normal, no murmur, click, rub or gallop Abdomen: soft, non-tender, non-distended, bowel sounds normal; no masses or organomegaly Extremities: L BKA, R stage 4 heel ulcer, R dorsum with dark discoloration, foul odor, +pus Pulses: +1 pulse Skin: skin color, texture, turgor normal; no rashes or lesions Neurologic: unable to assess Last 24 Hour Vital Signs Date Time Temp Pulse Resp B/P (MAP) Pulse Ox O2 Delivery O2 Flow Rate FiO2 12/05/18 08:31 71 20 98 Full Face 45 12/05/18 07:29 69 24 99 Facial 45 12/05/18 05:41 67 23 99 Facial 45 12/05/18 04:00 45 12/05/18 04:00 97.8 70 20 123/68 (86) 100 12/05/18 04:00 Bi-pap 12/05/18 03:22 69 12/05/18 03:21 66 21 98 Facial 45 12/05/18 01:08 64 22 97 Facial 45 12/05/18 00:28 72 12/05/18 00:10 97.5 63 20 127/78 (94) 97 12/05/18 00:10 45 12/05/18 00:10 Bi-pap Bi-pap 12/04/18 23:37 74 26 100 Facial 45 12/04/18 22:39 99.1 77 20 142/52 100 Bi-pap 2.0 100 3/12/19 21:13 68 20 100 Bi-pap 100 12/04/18 21:04 68 20 97 Facial 100 12/04/18 20:55 68 22 100 Bi-pap 100 12/04/18 20:55 67 22 100 Bi-pap 100 12/04/18 20:32 66 24 100 Bi-pap 100 12/04/18 20:29 66 24 100 Bi-pap 100 12/04/18 20:05 68 23 100 Bi-pap 100 12/04/18 19:55 68 23 100 Facial 100 12/04/18 19:05 65 19 Bi-pap 12/04/18 19:05 99.1 77 19 126/70 99 Bi-pap 12/04/18 19:01 99.1 65 19 118/44 99 Nasal Cannula 2.0 Intake and Output 12/04/18 12/05/18 19:00 07:00 Intake Total 55 ml Balance 55 ml Intake Oral 0 ml IV Total 55 ml Laboratory Tests Test 12/04/18 19:21 12/04/18 19:36 12/04/18 20:00 12/04/18 20:45 Arterial Blood pH 7.281 (7.350-7.450) Arterial Blood Partial Pressure CO2 51.7 mmHg (35.0-45.0) H Arterial Blood Partial Pressure O2 324.4 mmHg (75.0-100.0) H Arterial Blood HCO3 23.8 mmol/L (22.0-26.0) Arterial Blood Oxygen Saturation 99.6 % (95-100) Arterial Blood Base Excess -3.1 (-2-2) L Jose Test Positive White Blood Count 28.1 K/UL (4.8-10.8) *H Red Blood Count 2.94 M/UL (4.70-6.10) L Hemoglobin 9.4 G/DL (14.2-18.0) L Hematocrit 31.2 % (42.0-52.0) L Mean Corpuscular Volume 106 FL (80-99) H Mean Corpuscular Hemoglobin 32.0 PG (27.0-31.0) H Mean Corpuscular Hemoglobin Concent 30.1 G/DL (32.0-36.0) L Red Cell Distribution Width 18.9 % (11.6-14.8) H Platelet Count 291 K/UL (150-450) Mean Platelet Volume 8.9 FL (6.5-10.1) Neutrophils (%) (Auto) % (45.0-75.0) Lymphocytes (%) (Auto) % (20.0-45.0) Monocytes (%) (Auto) % (1.0-10.0) Eosinophils (%) (Auto) % (0.0-3.0) Basophils (%) (Auto) % (0.0-2.0) Differential Total Cells Counted 100 Neutrophils % (Manual) 90 % (45-75) H Lymphocytes % (Manual) 4 % (20-45) L Monocytes % (Manual) 5 % (1-10) Eosinophils % (Manual) 1 % (0-3) Basophils % (Manual) 0 % (0-2) Band Neutrophils 0 % (0-8) Platelet Estimate Adequate Platelet Morphology Normal Polychromasia 1+ Hypochromasia 2+ Anisocytosis 2+ Macrocytosis 3+ Sodium Level 135 MMOL/L (136-145) L Potassium Level 5.2 MMOL/L (3.5-5.1) H Chloride Level 99 MMOL/L (98-107) Carbon Dioxide Level 28 MMOL/L (21-32) Anion Gap 8 mmol/L (5-15) Blood Urea Nitrogen 57 mg/dL (7-18) H Creatinine 3.8 MG/DL (0.55-1.30) H Estimat Glomerular Filtration Rate 16.0 mL/min (>60) Glucose Level 51 MG/DL (74-106) L Calcium Level 9.3 MG/DL (8.5-10.1) Total Bilirubin 4.3 MG/DL (0.2-1.0) H Direct Bilirubin 3.5 MG/DL (0.0-0.3) H Aspartate Amino Transf (AST/SGOT) 19 U/L (15-37) Alanine Aminotransferase (ALT/SGPT) 10 U/L (12-78) L Alkaline Phosphatase 180 U/L (46-116) H Troponin I 0.162 ng/mL (0.000-0.056) Pro-B-Type Natriuretic Peptide > 61152 pg/mL (0-125) H Total Protein 8.2 G/DL (6.4-8.2) Albumin 2.1 G/DL (3.4-5.0) L Globulin 6.1 g/dL Albumin/Globulin Ratio 0.3 (1.0-2.7) L Lipase 78 U/L (73-393) Urine Color Yellow Urine Appearance Turbid Urine pH 7 (4.5-8.0) Urine Specific [place] 1.010 (1.005-1.035) Urine Protein 3+ (NEGATIVE) H Urine Glucose (UA) Negative (NEGATIVE) Urine Ketones Negative (NEGATIVE) Urine Blood 5+ (NEGATIVE) H Urine Nitrite Negative (NEGATIVE) Urine Bilirubin Negative (NEGATIVE) Urine Urobilinogen Normal MG/DL (0.0-1.0) Urine Leukocyte Esterase 3+ (NEGATIVE) H Urine RBC Tntc /HPF (0 - 0) H Urine WBC Tntc /HPF (0 - 0) H Urine Squamous Epithelial Cells None /LPF (NONE/OCC) Urine Bacteria Many /HPF (NONE) H Lactic Acid Level 1.30 mmol/L (0.4-2.0) Test 12/04/18 22:31 12/05/18 01:28 D-Dimer 18.88 mg/L FEU (0.00-0.49) H Troponin I 0.122 ng/mL (0.000-0.056) C-Reactive Protein, Quantitative 18.4 mg/dL (0.00-0.90) H Microbiology Date/Time Source Procedure Growth Status 12/04/18 20:00 Nasal Nares Influenza Types A,B Antigen (SUHAIL) - Final Complete 12/04/18 20:00 Urine,Clean Catch Urine Culture - Preliminary Resulted 12/04/18 20:55 Rectum Received Height (Feet): 5 Height (Inches): 4.00 Weight (Pounds): 125 Medications Current Medications Medications (Trade) Dose Ordered Sig/Ronald Route PRN Reason Start Time Stop Time Status Last Admin Dose Admin Dextrose (Dextrose 50%) 25 ml Q30M PRN IV Hypoglycemia 12/04/18 22:45 01/03/19 22:44 Dextrose (Dextrose 50%) 50 ml Q30M PRN IV Hypoglycemia 12/04/18 22:45 01/03/19 22:44 Ertapenem 0.5 gm/ Sodium Chloride 55 ml @ 110 mls/hr Q24H IVPB 12/05/18 00:00 12/10/18 00:00 12/05/18 02:00 Heparin Sodium (Porcine) (Heparin 5000 units/ml) 5,000 units EVERY 12 HOURS SUBQ 3/13/19 09:00 01/04/19 08:59 Assessment/Plan Assessment/Plan Assessment 68 year old male with PMH of DM, ESRD on HD (MWF - Last 12/03/18), s/p BKA, L chronic pressure ulcer and PVD was transferred from SNF for acute onset of shortness of breath and altered mental status, admitted for sepsis likely 2/2 R foot infection vs UTI Plan #Sepsis 2/2 R foot infection vs UTI vs PNA #Acute encephalopathy 2/2 infectious process #Acute hypercapnic respiratory failure -Cont vancomycin and meropenen -Cont BiPAP, NPO while on BIPAP -ABP PRN -ID consulted -Surgery consulted -Pending LE doppler #DM now hypoglycemic -hypoglycemia likley 2/2 sepsis -hold antiDM medications -FSG Q6hrs -Currently NPO, D10@ 50 started -Monitor respiratory status #ESRD on HD (MWF) via R arm fistula #HyperKalemia -Last HD 12/03/18 -no signs of fluid overload -nephrology consulted -CTM electrolytes -Plan for HD on 12/06 Code status with discussion: Full I spent 75 min on this patients care, and 40 min was dedicated to counseling and /or care coordination Frieda Miller MD Dec 05, 2018 09:36
[2018-12-05] MEDS ORDERED: HYDROcodone/Acetamin 5/325 tab ORAL PRN ×2 (09:58→10:00)
[2018-12-05] MEDS ORDERED: traMADol 50mg tab ORAL PRN (09:59)
[2018-12-05] MEDS: Heparin 5000 units/ml inj SUBQ SCH ×2 (10:05→21:05)
--- NOTE | 2018-12-05 11:11 | Consultation ---
Consult Note Consult Note asked to evaluate for dialysis management Patient known to me from his previous admissions HPI Patient presents emergency department today with acute onset of shortness of breath. Patient also noted to have decreased responsiveness appear to be more altered than usual. Patient is a unable provide much history. All the history was obtained from medical records. Symptoms is noted to be highly severe. Patient's currently on dialysis was dialyzed yesterday.No other modifying factors. No other associated signs and symptoms. No other complaints were noted. Allergies: Coded Allergies: PHENYTOIN (Verified Allergy, Unknown, 10/17/18) Uncoded Allergies: PENICILLIN (Allergy, Mild, 11/17/18) Past Medical History: DM, HTN, CHF, COPD, renal disease, dialysis PSxH Narrative AV fistula Social History Narrative stays at a skilled nursing Reviewed Nursing Documentation: PMH: Agreed; PSxH: Agreed Past Medical History: No History, Except For Hx Hypertension: Yes Hx COPD: Yes Hx Diabetes: Yes Hx Gastrointestinal Problems: No Hx Dialysis: Yes - Renal failure Hx Neurological Problems: Yes - aka amputation left leg, muscle weakness Hx Cerebrovascular Accident: Yes - CHF examined discussed with Dr Miller record reviewed Assessment/Plan admitted with sepsis and shortness of breath (1) ESRD (end stage renal disease) right arm fistula (2) Possible Fluid overload, unspecified (3) h/o Bradycardia (4) Anemia (5) h/o Pleural effusion (6) Elevated troponin (7) Allergy Dialntin & PCN (8) Elevated Bili was on bipap , now is on O2 cannula HD and UF plan 12/06 adjust BP meds 2D Echo : Will check last admission results stop beta blockers for low HR hydralazin and procardia as needed reviewe CXR per consultants Alessandro Price MD Dec 05, 2018 11:11
--- NOTE | 2018-12-05 12:03 | NUR ---
RD ASSESSMENT & RECOMMENDATIONS SEE CARE ACTIVITY FOR COMPLETE ASSESSMENT DAILY ESTIMATED NEEDS: Needs based on ESRD on HD, stage 4 wound 56kg 30-35 kcals/kg 4970-2754 total kcals 1.5-2.0 g protein/kg 84-112 g total protein Fluid per MD, on HD mL/kg total fluid mLs NUTRITION DIAGNOSIS: * Increased kcal and protein needs r/t wound healing and renal dysfunction as evidenced by pt w/ sacral and rt heel wounds per photo, pending eval, w/ ESRD on HD. CURRENT DIET:NPO PO DIET RECOMMENDATIONS: Once medically appropriate -> RENAL DIET/ texture per REPERTOIRE MANAGER ADDITIONAL RECOMMENDATIONS: 1) Wound healing:Add Sy 1pkt BID 2) W/ oral diet, add Nepro BID in b/w meals -> Monitor PO intake closely 3) Calibrated bedscale wt for accurate CBW 4) Monitor lytes closely- K elev 5) Monitor BGs, need for carb controlled diet, hypoglycemic agents- h/o DM
[2018-12-05 12:25] LABS: APPEARANCE,URINE TURBID; BILIRUBIN, URINE NEGATIVE (NEGATIVE); GLUCOSE, URINE (UA) NEGATIVE (NEGATIVE); KETONES,URINE NEGATIVE (NEGATIVE); LEUKOCYTE ESTERASE ,URINE 3+ (NEGATIVE); NITRITE,URINE NEGATIVE (NEGATIVE); PH,URINE 7 (4.5-8.0); PROTEIN,URINE 3+ (NEGATIVE); UROBILINOGEN,URINE NORMAL MG/DL (0.0-1.0)
[2018-12-05] MEDS: Nitroglycerin Patch 0.4mg TDERMAL SCH (12:27)
[2018-12-05] MEDS: Renvela 800mg Pkt ORAL SCH ×2 (12:27→17:05)
[2018-12-05 12:32] LABS: COLOR,URINE PALE YELLOW
--- NOTE | 2018-12-05 12:47 | NUR ---
NURSE NOTES: Spoke to Dr Miller about pt's BG and informed her it was first 57 and after D50 was administered it increased to 126. Dr Miller ordered 500mL D10NS at 50cc/hr. Will carry out order and continue to monitor pt.
--- NOTE | 2018-12-05 13:17 | NUR ---
NURSE NOTES: Called [facility] and spoke to Del to schedule hemodialysis for tomorrow 12/06.
--- NOTE | 2018-12-05 14:02 | NUR ---
NURSE NOTES:WOUND CARE NOTES:Pt presented on admission with necrotic wounds distal R lower ext and R foot -dorsal,lateral and medial aspects. R 3rd metatarsal is black. Chronic ulcer R heel that is also necrotic. Wounds are malodorous. Small amt brown exudate noted from dorsal wound. Partial thickness Sacral pressure injury. Base of wound is moist -viable with dark brown borders. Periwound without induration or erythema (L)4cm x (W)5cm. Tx.Plan: Apply Moisture Barrier Paste (Triad /Calazime )to sacrum. Cover with Optifoam drsg .Change every 3 days and prn. APM/JANELL mattress. Reposition at least Q 2hours or as tolerated. Off-Load R heel with pillow.
--- NOTE | 2018-12-05 14:19 | NUR ---
NURSE NOTES: Called and informed Dr Miller regarding ABG result. Dr. Miller ordered to put him back to BIPAP. Order carried out.
[2018-12-05] MEDS ORDERED: DEXTROSE IV ONE (15:00)
[2018-12-05] MEDS ORDERED: SOD CHL IV ONE (15:00)
--- NOTE | 2018-12-05 15:07 | NUR ---
ST NOTE: RECEIVED BEDSIDE SWALLOW EVAL ORDER CHART REVIEWED. ATTEMPTED ST EVAL, HOWEVER, PT IS LETHARGIC BUT AROUSABLE. WILL HOLD OFF THE EVAL AT THIS TIME. KEEP PT NPO. WILL FOLLOW UP. RNLAURA, ALISA.
--- NOTE | 2018-12-05 15:14 | Infectious Diseases Prog Note ---
Assessment/Plan Assessment/Plan Full consult dictated: A) 1) sepsis, right leg/foot infected wound/? gangrene/pad, uti, leukocytosis 2) pmh noted 3) allergies - pcn, phenytoin P) 1) meropenem and vancomycin 2) check cultures, labs and chest x-ray 3) surgery evaluation, arterial studies 4) thank you Subjective Allergies: Coded Allergies: PENICILLINS (Unverified Allergy, Mild, 12/05/18) PHENYTOIN (Verified Allergy, Unknown, 10/17/18) Uncoded Allergies: PENICILLIN (Allergy, Mild, 11/17/18) Objective Vital Signs Last 24 Hour Vital Signs Date Time Temp Pulse Resp B/P (MAP) Pulse Ox O2 Delivery O2 Flow Rate FiO2 12/05/18 13:29 100 12/05/18 12:27 102/63 12/05/18 12:00 4.0 12/05/18 12:00 69 12/05/18 12:00 98.2 68 24 102/63 (76) 100 12/05/18 12:00 Nasal Cannula 4.0 12/05/18 08:31 71 20 98 Full Face 45 12/05/18 08:00 4.0 12/05/18 08:00 Nasal Cannula 4.0 12/05/18 08:00 97.7 69 28 105/52 (69) 100 12/05/18 08:00 70 12/05/18 07:29 69 24 99 Facial 45 12/05/18 05:41 67 23 99 Facial 45 12/05/18 04:00 45 12/05/18 04:00 97.8 70 20 123/68 (86) 100 12/05/18 04:00 Bi-pap 12/05/18 03:22 69 12/05/18 03:21 66 21 98 Facial 45 12/05/18 01:08 64 22 97 Facial 45 12/05/18 00:28 72 12/05/18 00:10 97.5 63 20 127/78 (94) 97 12/05/18 00:10 45 12/05/18 00:10 Bi-pap Bi-pap 12/04/18 23:37 74 26 100 Facial 45 12/04/18 22:39 99.1 77 20 142/52 100 Bi-pap 2.0 100 12/04/18 21:13 68 20 100 Bi-pap 100 12/04/18 21:04 68 20 97 Facial 100 12/04/18 20:55 68 22 100 Bi-pap 100 12/04/18 20:55 67 22 100 Bi-pap 100 12/04/18 20:32 66 24 100 Bi-pap 100 12/04/18 20:29 66 24 100 Bi-pap 100 12/04/18 20:05 68 23 100 Bi-pap 100 12/04/18 19:55 68 23 100 Facial 100 12/04/18 19:05 65 19 Bi-pap 12/04/18 19:05 99.1 77 19 126/70 99 Bi-pap 12/04/18 19:01 99.1 65 19 118/44 99 Nasal Cannula 2.0 Height (Feet): 5 Height (Inches): 4.00 Weight (Pounds): 125 Microbiology Date/Time Source Procedure Growth Status 12/04/18 20:00 Nasal Nares Influenza Types A,B Antigen (SUHAIL) - Final Complete 12/04/18 20:00 Urine,Clean Catch Urine Culture - Preliminary Resulted 12/04/18 20:55 Rectum Received Laboratory Tests Test 12/04/18 19:21 12/04/18 19:36 12/04/18 20:00 12/04/18 20:45 Arterial Blood pH 7.281 (7.350-7.450) Arterial Blood Partial Pressure CO2 51.7 mmHg (35.0-45.0) H Arterial Blood Partial Pressure O2 324.4 mmHg (75.0-100.0) H Arterial Blood HCO3 23.8 mmol/L (22.0-26.0) Arterial Blood Oxygen Saturation 99.6 % (95-100) Arterial Blood Base Excess -3.1 (-2-2) L Jose Test Positive White Blood Count 28.1 K/UL (4.8-10.8) *H Red Blood Count 2.94 M/UL (4.70-6.10) L Hemoglobin 9.4 G/DL (14.2-18.0) L Hematocrit 31.2 % (42.0-52.0) L Mean Corpuscular Volume 106 FL (80-99) H Mean Corpuscular Hemoglobin 32.0 PG (27.0-31.0) H Mean Corpuscular Hemoglobin Concent 30.1 G/DL (32.0-36.0) L Red Cell Distribution Width 18.9 % (11.6-14.8) H Platelet Count 291 K/UL (150-450) Mean Platelet Volume 8.9 FL (6.5-10.1) Neutrophils (%) (Auto) % (45.0-75.0) Lymphocytes (%) (Auto) % (20.0-45.0) Monocytes (%) (Auto) % (1.0-10.0) Eosinophils (%) (Auto) % (0.0-3.0) Basophils (%) (Auto) % (0.0-2.0) Differential Total Cells Counted 100 Neutrophils % (Manual) 90 % (45-75) H Lymphocytes % (Manual) 4 % (20-45) L Monocytes % (Manual) 5 % (1-10) Eosinophils % (Manual) 1 % (0-3) Basophils % (Manual) 0 % (0-2) Band Neutrophils 0 % (0-8) Platelet Estimate Adequate Platelet Morphology Normal Polychromasia 1+ Hypochromasia 2+ Anisocytosis 2+ Macrocytosis 3+ Sodium Level 135 MMOL/L (136-145) L Potassium Level 5.2 MMOL/L (3.5-5.1) H Chloride Level 99 MMOL/L (98-107) Carbon Dioxide Level 28 MMOL/L (21-32) Anion Gap 8 mmol/L (5-15) Blood Urea Nitrogen 57 mg/dL (7-18) H Creatinine 3.8 MG/DL (0.55-1.30) H Estimat Glomerular Filtration Rate 16.0 mL/min (>60) Glucose Level 51 MG/DL (74-106) L Calcium Level 9.3 MG/DL (8.5-10.1) Total Bilirubin 4.3 MG/DL (0.2-1.0) H Direct Bilirubin 3.5 MG/DL (0.0-0.3) H Aspartate Amino Transf (AST/SGOT) 19 U/L (15-37) Alanine Aminotransferase (ALT/SGPT) 10 U/L (12-78) L Alkaline Phosphatase 180 U/L (46-116) H Troponin I 0.162 ng/mL (0.000-0.056) Pro-B-Type Natriuretic Peptide > 39484 pg/mL (0-125) H Total Protein 8.2 G/DL (6.4-8.2) Albumin 2.1 G/DL (3.4-5.0) L Globulin 6.1 g/dL Albumin/Globulin Ratio 0.3 (1.0-2.7) L Lipase 78 U/L (73-393) Urine Color Yellow Urine Appearance Turbid Urine pH 7 (4.5-8.0) Urine Specific [place] 1.010 (1.005-1.035) Urine Protein 3+ (NEGATIVE) H Urine Glucose (UA) Negative (NEGATIVE) Urine Ketones Negative (NEGATIVE) Urine Blood 5+ (NEGATIVE) H Urine Nitrite Negative (NEGATIVE) Urine Bilirubin Negative (NEGATIVE) Urine Urobilinogen Normal MG/DL (0.0-1.0) Urine Leukocyte Esterase 3+ (NEGATIVE) H Urine RBC Tntc /HPF (0 - 0) H Urine WBC Tntc /HPF (0 - 0) H Urine Squamous Epithelial Cells None /LPF (NONE/OCC) Urine Bacteria Many /HPF (NONE) H Lactic Acid Level 1.30 mmol/L (0.4-2.0) Test 12/04/18 22:31 12/05/18 01:28 12/05/18 11:30 12/05/18 13:25 D-Dimer 18.88 mg/L FEU (0.00-0.49) H Troponin I 0.122 ng/mL (0.000-0.056) C-Reactive Protein, Quantitative 18.4 mg/dL (0.00-0.90) H Urine Color Pale yellow Urine Appearance Turbid Urine pH 7 (4.5-8.0) Urine Specific [place] 1.010 (1.005-1.035) Urine Protein 3+ (NEGATIVE) H Urine Glucose (UA) Negative (NEGATIVE) Urine Ketones Negative (NEGATIVE) Urine Blood 5+ (NEGATIVE) H Urine Nitrite Negative (NEGATIVE) Urine Bilirubin Negative (NEGATIVE) Urine Urobilinogen Normal MG/DL (0.0-1.0) Urine Leukocyte Esterase 3+ (NEGATIVE) H Urine RBC 15-20 /HPF (0 - 0) H Urine WBC Tntc /HPF (0 - 0) H Urine Squamous Epithelial Cells Occasional /LPF Urine Bacteria Many /HPF (NONE) H Arterial Blood pH 7.321 (7.350-7.450) Arterial Blood Partial Pressure CO2 50.1 mmHg (35.0-45.0) H Arterial Blood Partial Pressure O2 84.5 mmHg (75.0-100.0) Arterial Blood HCO3 25.3 mmol/L (22.0-26.0) Arterial Blood Oxygen Saturation 95.0 % (95-100) Arterial Blood Base Excess -1.0 (-2-2) Jose Test Positive Current Medications Medications (Trade) Dose Ordered Sig/Ronald Route PRN Reason Start Time Stop Time Status Last Admin Dose Admin Acetaminophen/ Hydrocodone Bitart ([place] 5/325) 1 tab Q4H PRN ORAL For Severe Pain 12/05/18 10:00 12/12/18 09:57 Aspirin (Ecotrin) 81 mg DAILY ORAL 12/06/18 09:00 01/05/19 08:59 Dextrose (Dextrose 50%) 25 ml Q30M PRN IV Hypoglycemia 12/04/18 22:45 01/03/19 22:44 Dextrose (Dextrose 50%) 50 ml Q30M PRN IV Hypoglycemia 12/04/18 22:45 01/03/19 22:44 12/05/18 12:31 Dextrose/Sodium Chloride 500 ml @ 50 mls/hr Q10H ONCE IV 12/05/18 15:00 12/06/18 00:59 Docusate Sodium (Colace) 200 mg DAILY ORAL 12/06/18 09:00 01/05/19 08:59 Duloxetine HCl (Cymbalta) 20 mg DAILY ORAL 12/06/18 09:00 01/05/19 08:59 Heparin Sodium (Porcine) (Heparin 5000 units/ml) 5,000 units EVERY 12 HOURS SUBQ 12/05/18 09:00 01/04/19 08:59 12/05/18 10:05 Meropenem 500 mg/ Sodium Chloride 55 ml @ 110 mls/hr Q24H IVPB 12/05/18 21:00 12/10/18 20:59 Nitroglycerin (Ntg) 1 patch Q24H TDERMAL 12/05/18 13:00 01/04/19 12:59 Pantoprazole (Protonix) 40 mg EVERY 12 HOURS ORAL 12/05/18 21:00 01/04/19 20:59 Pyridoxine HCl (Vitamin B6) 25 mg DAILY ORAL 12/06/18 09:00 01/05/19 08:59 Sevelamer Carbonate (Renvela) 800 mg THREE TIMES A DAY ORAL 12/05/18 13:00 01/04/19 12:59 Tramadol HCl (Ultram) 50 mg Q6H PRN ORAL For Mod Pain 12/05/18 09:59 12/12/18 09:58 Vancomycin HCl (Vanco rx to dose) 1 ea BID PRN MISC Per rx protocol 12/05/18 10:45 01/04/19 10:44 Vitamin B Complex/ Vit C/Folic Acid (Nephrovite) 1 tab DAILY ORAL 12/06/18 09:00 01/05/19 08:59 Anshu Munguia MD Dec 05, 2018 15:14
[2018-12-05] MEDS ORDERED: Tubing IV Secondary IV ONE (17:41)
[2018-12-05] MEDS ORDERED: NS 275ml ONE (17:41)
--- NOTE | 2018-12-05 19:19 | NUR ---
HAND-OFF: Report given to SONG Farrar. Stable condition.
--- NOTE | 2018-12-05 19:20 | NUR ---
NURSE NOTES: Report received from SONG Wild. Observed pt lying on the bed, awake and on Bipap 12, 45%. Pt is alert and oriented x3. F/C intact and draining well, cloudy, gallegos colored urine noted. IV on L AC 20 G, running D10 NS at 50 cc/hr. Bed in the lowest position. Side rails up x3. Will continue to monitor.
[2018-12-05] MEDS: Meropenem 500 MG in NS 55 ML IVPB SCH (21:04)
--- NOTE | 2018-12-05 22:20 | Consultation ---
History of Present Illness General Date patient seen: Dec 05, 2018 Chief Complaint: Generalized Weakness Reason for Consultation: lower extremity wound Present Illness HPI 68 year old male well known to me from prior admissions who presents with sepsis. leukocytosis, abnormal labs, worsening lower extremity PVD. surgery called to evaluate and assist with care and management. patient seen, chart reviewed, patient examined. Allergies: Coded Allergies: PENICILLINS (Unverified Allergy, Mild, 12/05/18) PHENYTOIN (Verified Allergy, Unknown, 10/17/18) Uncoded Allergies: PENICILLIN (Allergy, Mild, 11/17/18) Medication History Scheduled Amlodipine Besylate* (Amlodipine Besylate*), 10 MG ORAL DAILY, (Reported) Aspirin Ec* (Aspirin Ec*), 81 MG ORAL DAILY, (Reported) Atenolol* (Tenormin*), 50 MG ORAL TWICE A DAY, (Reported) Docusate Sodium* (Docusate Sodium*), 200 MG ORAL DAILY, (Reported) Duloxetine (Cymbalta), 20 MG ORAL DAILY, (Reported) Levofloxacin* (Levaquin*), 250 MG ORAL DAILY Metronidazole* (Flagyl*), 500 MG ORAL EVERY 8 HOURS Pyridoxine Hcl* (Vitamin B-6*), 25 MG ORAL DAILY, (Reported) Sevelamer Carbonate* (Renvela*), 800 MG ORAL THREE TIMES A DAY, (Reported) Vitamin B Cmplx/Vit C/Folic AC (Nephro-Trent Tablet), 1 TAB ORAL DAILY, (Reported ) Scheduled PRN Hydrocodone Bit/Acetaminophen 5-325* ([place] 5-325*), 1 TAB ORAL Q4H PRN for For Pain, (Reported) Tramadol Hcl* (Ultram*), 50 MG ORAL Q6H PRN for For Pain, (Reported) Miscellaneous Medications Insulin Lispro (Humalog), 0 SUBQ, (Reported) Linagliptin (Tradjenta), 5 MG PO, (Reported) Methoxy Peg-Epoetin Beta (Mircera), 100 MCG IJ, (Reported) [lipovitan], (Reported) Patient History Limited by: medical condition History Provided By: Medical Record, PMD Healthcare decision maker N Resuscitation status Full Code Advanced Directive on File Past Medical/Surgical History Past Medical/Surgical History: (1) CHF (congestive heart failure) (2) Anemia (3) Anxiety disorder (4) Pleural effusion (5) Decubitus ulcer of right heel, stage 4 (6) MDD (7) Bradycardia (8) Acute metabolic encephalopathy (9) Leukocytosis (10) Respiratory distress (11) Sepsis (12) Severe sepsis Review of Systems ROS Narrative cannot obtain given medical condition Physical Exam General Appearance: no apparent distress HEENT: mucous membranes moist Neck: normal inspection Respiratory/Chest: no respiratory distress, no accessory muscle use Cardiovascular/Chest: normal rate Abdomen: soft, no organomegaly, no mass Extremities: other - prior BKA Skin Exam: other Last 24 Hour Vital Signs Date Time Temp Pulse Resp B/P (MAP) Pulse Ox O2 Delivery O2 Flow Rate FiO2 12/05/18 20:39 76 29 97 Full Face 41 12/05/18 20:00 98.7 66 21 119/72 (88) 99 12/05/18 20:00 Bi-pap 12/05/18 20:00 45 12/05/18 20:00 66 12/05/18 17:19 72 33 98 Full Face 45 12/05/18 16:00 45 12/05/18 16:00 Bi-pap 12/05/18 16:00 67 12/05/18 16:00 97.9 69 25 98/83 (88) 100 12/05/18 15:05 77 21 98 Full Face 45 12/05/18 13:29 100 12/05/18 12:27 102/63 12/05/18 12:00 4.0 12/05/18 12:00 69 12/05/18 12:00 98.2 68 24 102/63 (76) 100 12/05/18 12:00 Nasal Cannula 4.0 12/05/18 08:31 71 20 98 Full Face 45 12/05/18 08:00 4.0 12/05/18 08:00 Nasal Cannula 4.0 12/05/18 08:00 97.7 69 28 105/52 (69) 100 12/05/18 08:00 70 12/05/18 07:29 69 24 99 Facial 45 12/05/18 05:41 67 23 99 Facial 45 12/05/18 04:00 45 12/05/18 04:00 97.8 70 20 123/68 (86) 100 12/05/18 04:00 Bi-pap 12/05/18 03:22 69 3/13/19 03:21 66 21 98 Facial 45 12/05/18 01:08 64 22 97 Facial 45 12/05/18 00:28 72 12/05/18 00:10 97.5 63 20 127/78 (94) 97 12/05/18 00:10 45 12/05/18 00:10 Bi-pap Bi-pap 12/04/18 23:45 99.1 77 26 132/56 100 2.0 45 12/04/18 23:37 74 26 100 Facial 45 12/04/18 22:39 99.1 77 20 142/52 100 Bi-pap 2.0 100 Intake and Output 12/04/18 12/05/18 19:00 07:00 Intake Total 55 ml Balance 55 ml Intake Oral 0 ml IV Total 55 ml Laboratory Tests Test 12/04/18 22:31 12/05/18 01:28 12/05/18 11:30 12/05/18 13:25 D-Dimer 18.88 mg/L FEU (0.00-0.49) H Troponin I 0.122 ng/mL (0.000-0.056) C-Reactive Protein, Quantitative 18.4 mg/dL (0.00-0.90) H Urine Color Pale yellow Urine Appearance Turbid Urine pH 7 (4.5-8.0) Urine Specific [place] 1.010 (1.005-1.035) Urine Protein 3+ (NEGATIVE) H Urine Glucose (UA) Negative (NEGATIVE) Urine Ketones Negative (NEGATIVE) Urine Blood 5+ (NEGATIVE) H Urine Nitrite Negative (NEGATIVE) Urine Bilirubin Negative (NEGATIVE) Urine Urobilinogen Normal MG/DL (0.0-1.0) Urine Leukocyte Esterase 3+ (NEGATIVE) H Urine RBC 15-20 /HPF (0 - 0) H Urine WBC Tntc /HPF (0 - 0) H Urine Squamous Epithelial Cells Occasional /LPF Urine Bacteria Many /HPF (NONE) H Arterial Blood pH 7.321 (7.350-7.450) Arterial Blood Partial Pressure CO2 50.1 mmHg (35.0-45.0) H Arterial Blood Partial Pressure O2 84.5 mmHg (75.0-100.0) Arterial Blood HCO3 25.3 mmol/L (22.0-26.0) Arterial Blood Oxygen Saturation 95.0 % (95-100) Arterial Blood Base Excess -1.0 (-2-2) Jose Test Positive Height (Feet): 5 Height (Inches): 4.00 Weight (Pounds): 125 Medications Current Medications Medications (Trade) Dose Ordered Sig/Ronald Route PRN Reason Start Time Stop Time Status Last Admin Dose Admin Acetaminophen/ Hydrocodone Bitart ([place] 5/325) 1 tab Q4H PRN ORAL For Severe Pain 12/05/18 10:00 12/12/18 09:57 Aspirin (Ecotrin) 81 mg DAILY ORAL 12/06/18 09:00 01/05/19 08:59 Dextrose (Dextrose 50%) 25 ml Q30M PRN IV Hypoglycemia 12/04/18 22:45 01/03/19 22:44 Dextrose (Dextrose 50%) 50 ml Q30M PRN IV Hypoglycemia 12/04/18 22:45 01/03/19 22:44 12/05/18 12:31 Dextrose/Sodium Chloride 500 ml @ 50 mls/hr Q10H ONCE IV 12/05/18 15:00 12/06/18 00:59 12/05/18 16:07 Docusate Sodium (Colace) 200 mg DAILY ORAL 12/06/18 09:00 01/05/19 08:59 Duloxetine HCl (Cymbalta) 20 mg DAILY ORAL 12/06/18 09:00 01/05/19 08:59 Heparin Sodium (Porcine) (Heparin 5000 units/ml) 5,000 units EVERY 12 HOURS SUBQ 12/05/18 09:00 01/04/19 08:59 12/05/18 21:05 Meropenem 500 mg/ Sodium Chloride 55 ml @ 110 mls/hr Q24H IVPB 12/05/18 21:00 12/10/18 20:59 12/05/18 21:04 Nitroglycerin (Ntg) 1 patch Q24H TDERMAL 12/05/18 13:00 01/04/19 12:59 Pantoprazole (Protonix) 40 mg EVERY 12 HOURS ORAL 12/05/18 21:00 01/04/19 20:59 12/05/18 21:04 Pyridoxine HCl (Vitamin B6) 25 mg DAILY ORAL 12/06/18 09:00 01/05/19 08:59 Sevelamer Carbonate (Renvela) 800 mg THREE TIMES A DAY ORAL 12/05/18 13:00 01/04/19 12:59 Tramadol HCl (Ultram) 50 mg Q6H PRN ORAL For Mod Pain 12/05/18 09:59 12/12/18 09:58 Vancomycin HCl (Vanco rx to dose) 1 ea BID PRN MISC Per rx protocol 12/05/18 10:45 01/04/19 10:44 Vitamin B Complex/ Vit C/Folic Acid (Nephrovite) 1 tab DAILY ORAL 12/06/18 09:00 01/05/19 08:59 Assessment/Plan Problem List: (1) Sepsis Assessment & Plan: Patient presented on admission with necrotic wounds distal Right lower extremity and R foot -dorsal,lateral and medial aspects. R 3rd metatarsal is black. Chronic ulcer R heel that is also necrotic. Wounds/foot malodorous. Small amount brown exudate noted from dorsal wound. Soft medial necrotic 3cm area noted with denuded bleeding tissue just anterior to it. soft tissue overall with soft edema. possible abscess underlying. skin blistering and sloth noted. Partial thickness Sacral pressure injury. Base of wound is moist -viable with dark brown borders. Periwound without induration or erythema (L)4cm x (W)5cm. Tx.Plan: MRI right foot and ankle ordered to evaluate for osteo and abscess Arterial and venous duplex pending Vascular and Podiatry eval for limb salvage Wash foot daily, apply xeroform and abd, wrap with kerlix Apply Moisture Barrier Paste (Triad /Calazime )to sacrum. Cover with Optifoam drsg .Change every 3 days and prn. APM/JANELL mattress. Reposition at least Q 2hours or as tolerated. Off-Load R heel with pillow. ICD Codes: A41.9 - Sepsis, unspecified organism SNOMED: 31342058 (2) Hx of BKA ICD Codes: Z89.519 - Acquired absence of unspecified leg below knee SNOMED: 332296099, [id number] Damian Michaels Dec 05, 2018 22:20
[2018-12-06] VITALS: BP 126/64
[2018-12-06 04:00] VITALS: BP 100/55
[2018-12-06 06:13] LABS: INR 1.4 (0.9-1.1)
[2018-12-06 06:15] LABS: HEMATOCRIT 26.7 % (42.0-52.0); HEMOGLOBIN 8.3 G/DL (14.2-18.0); MEAN CORPUSCULAR VOLUME 105 FL (80-99); PLATELET COUNT 242 K/UL (150-450); RED BLOOD COUNT 2.55 M/UL (4.70-6.10); RED CELL DISTRIBUTION WIDTH 19.9 % (11.6-14.8); WHITE BLOOD COUNT 21.4 K/UL (4.8-10.8)
[2018-12-06 06:24] LABS: AMMONIA 38 umol/L (11-32)
[2018-12-06 06:33] LABS: CREATINE KINASE 19 U/L (26-308); GAMMA GLUTAMYL TRANSPEPTIDASE 148 U/L (5-85); PHOSPHORUS 5.6 MG/DL (2.5-4.9)
[2018-12-06 06:39] LABS: ALANINE AMINOTRANSFERASE 9 U/L (12-78); ALBUMIN 1.9 G/DL (3.4-5.0); ALBUMIN/GLOBULIN RATIO 0.3 (1.0-2.7); ALKALINE PHOSPHATASE 153 U/L (46-116); ANION GAP 11 mmol/L (5-15); ASPARTATE AMINO TRANSFERASE 16 U/L (15-37); BILIRUBIN,TOTAL 3.4 MG/DL (0.2-1.0); BLOOD UREA NITROGEN 68 mg/dL (7-18); CALCIUM 9.1 MG/DL (8.5-10.1); CARBON DIOXIDE 24 MMOL/L (21-32); CHLORIDE 101 MMOL/L (98-107); CHOLESTEROL 85 MG/DL (< 200); CREATININE 4.6 MG/DL (0.55-1.30); FERRITIN 1678 NG/ML (8-388); HDL CHOLESTEROL 6 MG/DL (40-60); POTASSIUM 5.6 MMOL/L (3.5-5.1); SODIUM 136 MMOL/L (136-145); TRIGLYCERIDES 109 MG/DL (30-150)
[2018-12-06 06:45] LABS: BILIRUBIN,DIRECT 2.7 MG/DL (0.0-0.3)
--- NOTE | 2018-12-06 07:00 | NUR ---
NURSE NOTES: BS 66 noted and D50 25ml given. BS rechecked and 96 noted.
--- NOTE | 2018-12-06 07:18 | NUR ---
RESPIRATORY NOTE: Received pt on ordered BiPAP settings. Removed BiPAP mask to offset pressure, assess skin integrity, and readjust mask. No skin breakdown or redness noted. BiPAP mask placed back on. BiPAP alarms are on and audible. BiPAP is plugged into red outlet. Will monitor pt progress.
--- NOTE | 2018-12-06 07:40 | NUR ---
HAND-OFF: Report given to SONG Rudd. No acute distress noted at this time.
--- NOTE | 2018-12-06 07:41 | NUR ---
NURSE NOTES: Received patient from Bernabe RN. Patient was awake and resting comfortably. Pt was oriented X3, hooked to quality assurance monitor, Bipap 12/5 45%, no signs of distress, NPO, Molina catheter for retention, skin alteration noted with overlay mattress, left AKA, IV on left AC 22G TKO, right UA av shunt for dialysis. Scheduled for dialysis for today. Call light within reach bed at lowest position, side rails up. Will continue to monitor.
--- NOTE | 2018-12-06 07:50 | NUR ---
NURSE NOTES: DR DELATORRE MADE AWARE OF TROPONIN LEVEL. WILL CONTINUE TO MONITOR.
[2018-12-06 08:00] VITALS: BP 109/57
--- NOTE | 2018-12-06 09:00 | NUR ---
NURSE NOTES: Seen and examined by Dr Lerma with new orders made. Off from BIpap, reparatory rate 25, O2 SAT 98%. No signs of distress. Will continue to monitor.
--- NOTE | 2018-12-06 09:30 | Consultation ---
History of Present Illness General Date patient seen: Dec 06, 2018 Chief Complaint: Generalized Weakness Reason for Consultation: lower extremity wound Present Illness HPI 68 year old male with hx of DM, HTN, CHF, COPD, L BKA end stage renal disease, on dialysis, alf resident presented to emergency department acute onset of shortness of breath. Patient also noted to be responsive. Patient is a unable provide much history. All the history was obtained from medical records. Symptoms is noted to be highly severe. Pt was found to be in respiratory failure and was put on BIPAP. His CXR showed right middle lobe infiltrate. Allergies: Coded Allergies: PENICILLINS (Unverified Allergy, Mild, 12/05/18) PHENYTOIN (Verified Allergy, Unknown, 10/17/18) Uncoded Allergies: PENICILLIN (Allergy, Mild, 11/17/18) Medication History Scheduled Amlodipine Besylate* (Amlodipine Besylate*), 10 MG ORAL DAILY, (Reported) Aspirin Ec* (Aspirin Ec*), 81 MG ORAL DAILY, (Reported) Atenolol* (Tenormin*), 50 MG ORAL TWICE A DAY, (Reported) Docusate Sodium* (Docusate Sodium*), 200 MG ORAL DAILY, (Reported) Duloxetine (Cymbalta), 20 MG ORAL DAILY, (Reported) Levofloxacin* (Levaquin*), 250 MG ORAL DAILY Metronidazole* (Flagyl*), 500 MG ORAL EVERY 8 HOURS Pyridoxine Hcl* (Vitamin B-6*), 25 MG ORAL DAILY, (Reported) Sevelamer Carbonate* (Renvela*), 800 MG ORAL THREE TIMES A DAY, (Reported) Vitamin B Cmplx/Vit C/Folic AC (Nephro-Trent Tablet), 1 TAB ORAL DAILY, (Reported ) Scheduled PRN Hydrocodone Bit/Acetaminophen 5-325* ([place] 5-325*), 1 TAB ORAL Q4H PRN for For Pain, (Reported) Tramadol Hcl* (Ultram*), 50 MG ORAL Q6H PRN for For Pain, (Reported) Miscellaneous Medications Insulin Lispro (Humalog), 0 SUBQ, (Reported) Linagliptin (Tradjenta), 5 MG PO, (Reported) Methoxy Peg-Epoetin Beta (Mircera), 100 MCG IJ, (Reported) [lipovitan], (Reported) Patient History Healthcare decision maker N Resuscitation status Full Code Advanced Directive on File Past Medical/Surgical History Past Medical/Surgical History: (1) ESRF (end stage renal failure) (2) Diabetes mellitus (3) S/P BKA (below knee amputation) (4) Anxiety disorder (5) Decubitus ulcer of right heel, stage 4 Review of Systems Respiratory: Reports: shortness of breath All Other Systems: negative except mentioned in HPI Physical Exam General Appearance: cachetic Lines, tubes and drains: peripheral HEENT: normocephalic, atraumatic Neck: non-tender, supple Respiratory/Chest: chest wall non-tender, rhonchi - left, rhonchi - right Breasts: no masses Cardiovascular/Chest: normal peripheral pulses, normal rate Abdomen: normal bowel sounds Genitourinary/Rectal: normal genital exam Extremities: normal range of motion Last 24 Hour Vital Signs Date Time Temp Pulse Resp B/P (MAP) Pulse Ox O2 Delivery O2 Flow Rate FiO2 12/06/18 08:06 Bi-pap 12/06/18 07:18 69 20 98 Full Face 40 12/06/18 04:35 65 22 97 Full Face 40 12/06/18 04:00 97.8 64 21 100/55 (70) 95 12/06/18 04:00 45 12/06/18 04:00 65 12/06/18 04:00 Bi-pap 12/06/18 01:15 78 25 97 Full Face 40 12/06/18 00:00 Bi-pap 12/06/18 00:00 65 12/06/18 00:00 97.8 65 22 126/64 (84) 100 12/05/18 23:22 72 28 98 Full Face 40 12/05/18 20:39 76 29 97 Full Face 41 12/05/18 20:00 98.7 66 21 119/72 (88) 99 12/05/18 20:00 Bi-pap 12/05/18 20:00 45 12/05/18 20:00 66 12/05/18 17:19 72 33 98 Full Face 45 12/05/18 16:00 45 12/05/18 16:00 Bi-pap 12/05/18 16:00 67 12/05/18 16:00 97.9 69 25 98/83 (88) 100 12/05/18 15:05 77 21 98 Full Face 45 12/05/18 13:29 100 12/05/18 12:27 102/63 12/05/18 12:00 4.0 12/05/18 12:00 69 12/05/18 12:00 98.2 68 24 102/63 (76) 100 12/05/18 12:00 Nasal Cannula 4.0 Intake and Output 12/05/18 12/06/18 19:00 07:00 Intake Total 100 ml 695 ml Output Total 200 ml 100 ml Balance -100 ml 595 ml Intake Oral 240 ml IV Total 100 ml 455 ml Output Urine Total 200 ml 100 ml Laboratory Tests Test 12/05/18 11:30 12/05/18 13:25 12/05/18 22:30 12/06/18 04:30 Urine Color Pale yellow Urine Appearance Turbid Urine pH 7 (4.5-8.0) Urine Specific [place] 1.010 (1.005-1.035) Urine Protein 3+ (NEGATIVE) H Urine Glucose (UA) Negative (NEGATIVE) Urine Ketones Negative (NEGATIVE) Urine Blood 5+ (NEGATIVE) H Urine Nitrite Negative (NEGATIVE) Urine Bilirubin Negative (NEGATIVE) Urine Urobilinogen Normal MG/DL (0.0-1.0) Urine Leukocyte Esterase 3+ (NEGATIVE) H Urine RBC 15-20 /HPF (0 - 0) H Urine WBC Tntc /HPF (0 - 0) H Urine Squamous Epithelial Cells Occasional /LPF Urine Bacteria Many /HPF (NONE) H Arterial Blood pH 7.321 (7.350-7.450) Arterial Blood Partial Pressure CO2 50.1 mmHg (35.0-45.0) H Arterial Blood Partial Pressure O2 84.5 mmHg (75.0-100.0) Arterial Blood HCO3 25.3 mmol/L (22.0-26.0) Arterial Blood Oxygen Saturation 95.0 % (95-100) Arterial Blood Base Excess -1.0 (-2-2) Jose Test Positive Troponin I 0.123 ng/mL (0.000-0.056) 0.094 ng/mL (0.000-0.056) White Blood Count 21.4 K/UL (4.8-10.8) H Red Blood Count 2.55 M/UL (4.70-6.10) L Hemoglobin 8.3 G/DL (14.2-18.0) L Hematocrit 26.7 % (42.0-52.0) L Mean Corpuscular Volume 105 FL (80-99) H Mean Corpuscular Hemoglobin 32.6 PG (27.0-31.0) H Mean Corpuscular Hemoglobin Concent 31.2 G/DL (32.0-36.0) L Red Cell Distribution Width 19.9 % (11.6-14.8) H Platelet Count 242 K/UL (150-450) Mean Platelet Volume 9.3 FL (6.5-10.1) Neutrophils (%) (Auto) % (45.0-75.0) Lymphocytes (%) (Auto) % (20.0-45.0) Monocytes (%) (Auto) % (1.0-10.0) Eosinophils (%) (Auto) % (0.0-3.0) Basophils (%) (Auto) % (0.0-2.0) Neutrophils % (Manual) Pending Lymphocytes % (Manual) Pending Platelet Estimate Pending Platelet Morphology Pending Prothrombin Time 14.2 SEC (9.30-11.50) H Prothromb Time International Ratio 1.4 (0.9-1.1) H Sodium Level 136 MMOL/L (136-145) Potassium Level 5.6 MMOL/L (3.5-5.1) H Chloride Level 101 MMOL/L (98-107) Carbon Dioxide Level 24 MMOL/L (21-32) Anion Gap 11 mmol/L (5-15) Blood Urea Nitrogen 68 mg/dL (7-18) H Creatinine 4.6 MG/DL (0.55-1.30) H Estimat Glomerular Filtration Rate 12.8 mL/min (>60) Glucose Level 62 MG/DL (74-106) L Uric Acid 6.3 MG/DL (2.6-7.2) Calcium Level 9.1 MG/DL (8.5-10.1) Phosphorus Level 5.6 MG/DL (2.5-4.9) H Magnesium Level 2.4 MG/DL (1.8-2.4) Ferritin 1678 NG/ML (8-388) H Total Bilirubin 3.4 MG/DL (0.2-1.0) H Direct Bilirubin 2.7 MG/DL (0.0-0.3) H Gamma Glutamyl Transpeptidase 148 U/L (5-85) H Aspartate Amino Transf (AST/SGOT) 16 U/L (15-37) Alanine Aminotransferase (ALT/SGPT) 9 U/L (12-78) L Alkaline Phosphatase 153 U/L (46-116) H Ammonia 38 umol/L (11-32) H Total Creatine Kinase 19 U/L (26-308) L Pro-B-Type Natriuretic Peptide > 79989 pg/mL (0-125) H Total Protein 7.5 G/DL (6.4-8.2) Total Protein (PEP) Pending Albumin 1.9 G/DL (3.4-5.0) L Albumin (PEP) Pending Globulin 5.6 g/dL Globulin (PEP) Pending Albumin/Globulin Ratio 0.3 (1.0-2.7) L Nvdlo-1-Aatprxpop Pending Ysxpg-6-Nzzmhzgeg Pending Beta Globulins Pending Beta Gamma Globulin Pending PEP Abnormal Protein Bands Pending Protein Electrophoresis Interpret Pending Triglycerides Level 109 MG/DL (30-150) Cholesterol Level 85 MG/DL (< 200) LDL Cholesterol 67 mg/dL (<100) HDL Cholesterol 6 MG/DL (40-60) L Cholesterol/HDL Ratio 14.2 (3.3-4.4) H Vitamin B12 Level 1853 PG/ML (193-986) H Folate 19.4 NG/ML (8.6-58.9) Thyroid Stimulating Hormone (TSH) 3.012 uiU/mL (0.358-3.740) Random Vancomycin Level 16.8 ug/mL Immunoglobulin G Pending Immunoglobulin A Pending Immunoglobulin M Pending Immunofixation Screen Pending Microbiology Date/Time Source Procedure Growth Status 12/05/18 15:00 Sputum Gram Stain - Final Resulted 12/05/18 15:00 Sputum Sputum Culture - Preliminary Resulted 12/05/18 11:30 Urine,Clean Catch Urine Culture - Preliminary Gram Negative Neymar Resulted Height (Feet): 5 Height (Inches): 4.00 Weight (Pounds): 133 Medications Current Medications Medications (Trade) Dose Ordered Sig/Ronald Route PRN Reason Start Time Stop Time Status Last Admin Dose Admin Acetaminophen/ Hydrocodone Bitart ([place] 5/325) 1 tab Q4H PRN ORAL For Severe Pain 12/05/18 10:00 12/12/18 09:57 Aspirin (Ecotrin) 81 mg DAILY ORAL 12/06/18 09:00 01/05/19 08:59 Dextrose (Dextrose 50%) 25 ml Q30M PRN IV Hypoglycemia 12/04/18 22:45 01/03/19 22:44 Dextrose (Dextrose 50%) 50 ml Q30M PRN IV Hypoglycemia 12/04/18 22:45 01/03/19 22:44 12/06/18 06:22 Docusate Sodium (Colace) 200 mg DAILY ORAL 12/06/18 09:00 01/05/19 08:59 Duloxetine HCl (Cymbalta) 20 mg DAILY ORAL 12/06/18 09:00 01/05/19 08:59 Heparin Sodium (Porcine) (Heparin 5000 units/ml) 5,000 units EVERY 12 HOURS SUBQ 12/05/18 09:00 01/04/19 08:59 12/05/18 21:05 Meropenem 500 mg/ Sodium Chloride 55 ml @ 110 mls/hr Q24H IVPB 12/05/18 21:00 12/10/18 20:59 12/05/18 21:04 Nitroglycerin (Ntg) 1 patch Q24H TDERMAL 12/05/18 13:00 01/04/19 12:59 Pantoprazole (Protonix) 40 mg EVERY 12 HOURS ORAL 12/05/18 21:00 01/04/19 20:59 12/05/18 21:04 Pyridoxine HCl (Vitamin B6) 25 mg DAILY ORAL 12/06/18 09:00 01/05/19 08:59 Sevelamer Carbonate (Renvela) 800 mg THREE TIMES A DAY ORAL 12/05/18 13:00 01/04/19 12:59 Tramadol HCl (Ultram) 50 mg Q6H PRN ORAL For Mod Pain 12/05/18 09:59 12/12/18 09:58 Vitamin B Complex/ Vit C/Folic Acid (Nephrovite) 1 tab DAILY ORAL 12/06/18 09:00 01/05/19 08:59 Assessment/Plan Problem List: (1) Acute respiratory failure ICD Codes: J96.00 - Acute respiratory failure, unspecified whether with hypoxia or hypercapnia SNOMED: 53163481 (2) Severe sepsis ICD Codes: A41.9 - Sepsis, unspecified organism; R65.20 - Severe sepsis without septic shock SNOMED: 72052463 (3) ESRF (end stage renal failure) ICD Codes: N18.6 - End stage renal disease SNOMED: 87669362 (4) Diabetes mellitus ICD Codes: E11.9 - Type 2 diabetes mellitus without complications SNOMED: 77218419 (5) Decubitus ulcer of right heel, stage 4 ICD Codes: L89.614 - Pressure ulcer of right heel, stage 4 SNOMED: 408177081 (6) Acute metabolic encephalopathy ICD Codes: G93.41 - Metabolic encephalopathy SNOMED: 77411758, 205401526 (7) S/P BKA (below knee amputation) ICD Codes: Z89.519 - Acquired absence of unspecified leg below knee SNOMED: 97331220, 601769319 Assessment/Plan titrate bipap titrate fio2 to sat of 92% respiratory treatment check sputum for c/s check blood cultures wound care sliding scale diabetic diet. Tamia Lerma MD Dec 06, 2018 09:30
--- NOTE | 2018-12-06 09:30 | NUR ---
NURSE NOTES: Patient was seen by PT. Able to dangle legs at the side of bed.
--- NOTE | 2018-12-06 09:31 | Diagnostic Imaging Report ---
Indication: Cough Technique: One view of the chest Comparison: 11/23/2018 Findings: Atelectatic bands and patchy parenchymal opacities are again demonstrated bilaterally, appearing somewhat more numerous in the lower lobes. Interstitial congestive changes are again demonstrated. No definite effusions. The heart size is normal. Venous stents are again demonstrated. Impression: Generalized interstitial congestion again demonstrated. Similar to prior study 11/23/2018. Patchy bilateral opacities are slightly more extensive than on previous study, may indicate increasing infiltrates or more focal areas of edema. Correlate with clinical findings
--- NOTE | 2018-12-06 09:32 | Diagnostic Imaging Report ---
Indication: Dyspnea Technique: One view of the chest Comparison: 12/04/2018 Findings: Slightly better inspiration currently. Patchy parenchymal opacities appear slightly more numerous at the right lung base. Other bilateral parenchymal opacities appear similar to the previous exam. There is mild generalized interstitial congestion which appears similar. Right innominate and brachial venous stents are again demonstrated. The heart size is normal. There is slight blunting of right costophrenic sulcus, not definitely apparent previously Impression: Increased patchy parenchymal opacities on the right, since prior exam of one day earlier, may reflect increasing pneumonia or pulmonary edema. New finding of small right pleural effusion Other bilateral parenchymal opacities and generalized interstitial congestion are stable
[2018-12-06] MEDS: Heparin 5000 units/ml inj SUBQ SCH ×2 (09:51→20:37)
[2018-12-06] MEDS: Renvela 800mg Pkt ORAL SCH ×3 (09:59→18:23)
[2018-12-06] MEDS: Nephrovite tab (Rena-Vite) ORAL SCH (09:59)
[2018-12-06] MEDS: Aspirin EC 81mg tab ORAL SCH (10:00)
[2018-12-06] MEDS: Pyridoxine 50mg tab ORAL SCH (10:01)
[2018-12-06] MEDS: Docusate 100mg cap ORAL SCH (10:21)
--- NOTE | 2018-12-06 11:30 | NUR ---
NURSE NOTES: Patient started hemodialysis at 1100. Patient is tolerating dialysis. Will continue to monitor.
[2018-12-06 12:00] VITALS: BP 123/64
--- NOTE | 2018-12-06 12:29 | Infectious Diseases Prog Note ---
Assessment/Plan Assessment/Plan A) 1) sepsis, right leg/foot infected wound/? gangrene/pad, gram neg uti, leukocytosis 2) pmh noted 3) allergies - pcn, phenytoin P) 1) meropenem and vancomycin 2) check cultures, labs and chest x-ray 3) await arterial studies 4) d/w surgery, may need vascular surgery evaluation and amputation Subjective Constitutional: Reports: fatigue, other - getting hd; Denies: fever Respiratory: Denies: shortness of breath Cardiovascular: Denies: chest pain Gastrointestinal/Abdominal: Denies: nausea, vomiting, diarrhea Genitourinary: Reports: other - + negro Allergies: Coded Allergies: PENICILLINS (Unverified Allergy, Mild, 12/05/18) PHENYTOIN (Verified Allergy, Unknown, 10/17/18) Uncoded Allergies: PENICILLIN (Allergy, Mild, 11/17/18) Objective Vital Signs Last 24 Hour Vital Signs Date Time Temp Pulse Resp B/P (MAP) Pulse Ox O2 Delivery O2 Flow Rate FiO2 12/06/18 12:00 4.0 12/06/18 12:00 Bi-pap 12/06/18 09:30 66 20 97 4.0 36 12/06/18 08:06 Bi-pap 12/06/18 08:00 62 12/06/18 08:00 97.7 62 22 109/57 (74) 99 12/06/18 08:00 45 12/06/18 07:18 69 20 98 Full Face 40 12/06/18 04:35 65 22 97 Full Face 40 12/06/18 04:00 97.8 64 21 100/55 (70) 95 12/06/18 04:00 45 12/06/18 04:00 65 12/06/18 04:00 Bi-pap 12/06/18 01:15 78 25 97 Full Face 40 12/06/18 00:00 Bi-pap 12/06/18 00:00 65 12/06/18 00:00 97.8 65 22 126/64 (84) 100 12/05/18 23:22 72 28 98 Full Face 40 12/05/18 20:39 76 29 97 Full Face 41 12/05/18 20:00 98.7 66 21 119/72 (88) 99 12/05/18 20:00 Bi-pap 12/05/18 20:00 45 12/05/18 20:00 66 12/05/18 17:19 72 33 98 Full Face 45 12/05/18 16:00 45 12/05/18 16:00 Bi-pap 12/05/18 16:00 67 12/05/18 16:00 97.9 69 25 98/83 (88) 100 12/05/18 15:05 77 21 98 Full Face 45 12/05/18 13:29 100 12/05/18 12:27 102/63 Height (Feet): 5 Height (Inches): 4.00 Weight (Pounds): 133 General Appearance: no acute distress HEENT: normocephalic, atraumatic, anicteric Respiratory/Chest: crackles/rales, rhonchi - bilaterally Cardiovascular: normal rate, regular rhythm Abdomen: normal bowel sounds, soft, non tender, no organomegaly Microbiology Date/Time Source Procedure Growth Status 12/05/18 01:43 Blood Blood Culture - Preliminary NO GROWTH AFTER 24 HOURS Resulted 12/05/18 01:28 Blood Blood Culture - Preliminary NO GROWTH AFTER 24 HOURS Resulted 12/04/18 19:30 Blood Blood Culture - Preliminary NO GROWTH AFTER 24 HOURS Resulted 12/04/18 19:15 Blood Blood Culture - Preliminary NO GROWTH AFTER 24 HOURS Resulted 12/05/18 15:00 Sputum Gram Stain - Final Resulted 12/05/18 15:00 Sputum Sputum Culture - Preliminary Resulted 12/04/18 20:00 Nasal Nares Influenza Types A,B Antigen (SUHAIL) - Final Complete 12/05/18 11:30 Urine,Clean Catch Urine Culture - Preliminary Gram Negative Neymar Resulted 12/04/18 20:00 Urine,Clean Catch Urine Culture - Preliminary Gram Negative Neymar Resulted 12/04/18 20:55 Rectum Received Laboratory Tests Test 12/05/18 13:25 12/05/18 22:30 12/06/18 04:30 Arterial Blood pH 7.321 (7.350-7.450) Arterial Blood Partial Pressure CO2 50.1 mmHg (35.0-45.0) H Arterial Blood Partial Pressure O2 84.5 mmHg (75.0-100.0) Arterial Blood HCO3 25.3 mmol/L (22.0-26.0) Arterial Blood Oxygen Saturation 95.0 % (95-100) Arterial Blood Base Excess -1.0 (-2-2) Jose Test Positive Troponin I 0.123 ng/mL (0.000-0.056) 0.094 ng/mL (0.000-0.056) White Blood Count 21.4 K/UL (4.8-10.8) H Red Blood Count 2.55 M/UL (4.70-6.10) L Hemoglobin 8.3 G/DL (14.2-18.0) L Hematocrit 26.7 % (42.0-52.0) L Mean Corpuscular Volume 105 FL (80-99) H Mean Corpuscular Hemoglobin 32.6 PG (27.0-31.0) H Mean Corpuscular Hemoglobin Concent 31.2 G/DL (32.0-36.0) L Red Cell Distribution Width 19.9 % (11.6-14.8) H Platelet Count 242 K/UL (150-450) Mean Platelet Volume 9.3 FL (6.5-10.1) Neutrophils (%) (Auto) % (45.0-75.0) Lymphocytes (%) (Auto) % (20.0-45.0) Monocytes (%) (Auto) % (1.0-10.0) Eosinophils (%) (Auto) % (0.0-3.0) Basophils (%) (Auto) % (0.0-2.0) Differential Total Cells Counted 100 Neutrophils % (Manual) 87 % (45-75) H Lymphocytes % (Manual) 4 % (20-45) L Monocytes % (Manual) 7 % (1-10) Eosinophils % (Manual) 0 % (0-3) Basophils % (Manual) 0 % (0-2) Band Neutrophils 2 % (0-8) Platelet Estimate Decreased L Platelet Morphology Normal Macrocytosis 2+ Target Cells 2+ Prothrombin Time 14.2 SEC (9.30-11.50) H Prothromb Time International Ratio 1.4 (0.9-1.1) H Sodium Level 136 MMOL/L (136-145) Potassium Level 5.6 MMOL/L (3.5-5.1) H Chloride Level 101 MMOL/L (98-107) Carbon Dioxide Level 24 MMOL/L (21-32) Anion Gap 11 mmol/L (5-15) Blood Urea Nitrogen 68 mg/dL (7-18) H Creatinine 4.6 MG/DL (0.55-1.30) H Estimat Glomerular Filtration Rate 12.8 mL/min (>60) Glucose Level 62 MG/DL (74-106) L Uric Acid 6.3 MG/DL (2.6-7.2) Calcium Level 9.1 MG/DL (8.5-10.1) Phosphorus Level 5.6 MG/DL (2.5-4.9) H Magnesium Level 2.4 MG/DL (1.8-2.4) Ferritin 1678 NG/ML (8-388) H Total Bilirubin 3.4 MG/DL (0.2-1.0) H Direct Bilirubin 2.7 MG/DL (0.0-0.3) H Gamma Glutamyl Transpeptidase 148 U/L (5-85) H Aspartate Amino Transf (AST/SGOT) 16 U/L (15-37) Alanine Aminotransferase (ALT/SGPT) 9 U/L (12-78) L Alkaline Phosphatase 153 U/L (46-116) H Ammonia 38 umol/L (11-32) H Total Creatine Kinase 19 U/L (26-308) L Pro-B-Type Natriuretic Peptide > 85692 pg/mL (0-125) H Total Protein 7.5 G/DL (6.4-8.2) Total Protein (PEP) Pending Albumin 1.9 G/DL (3.4-5.0) L Albumin (PEP) Pending Globulin 5.6 g/dL Globulin (PEP) Pending Albumin/Globulin Ratio 0.3 (1.0-2.7) L Rqxyz-8-Srsfafdwl Pending Zepce-6-Tkotqhklg Pending Beta Globulins Pending Beta Gamma Globulin Pending PEP Abnormal Protein Bands Pending Protein Electrophoresis Interpret Pending Triglycerides Level 109 MG/DL (30-150) Cholesterol Level 85 MG/DL (< 200) LDL Cholesterol 67 mg/dL (<100) HDL Cholesterol 6 MG/DL (40-60) L Cholesterol/HDL Ratio 14.2 (3.3-4.4) H Vitamin B12 Level 1853 PG/ML (193-986) H Folate 19.4 NG/ML (8.6-58.9) Thyroid Stimulating Hormone (TSH) 3.012 uiU/mL (0.358-3.740) Random Vancomycin Level 16.8 ug/mL Immunoglobulin G Pending Immunoglobulin A Pending Immunoglobulin M Pending Immunofixation Screen Pending Current Medications Medications (Trade) Dose Ordered Sig/Ronald Route PRN Reason Start Time Stop Time Status Last Admin Dose Admin Acetaminophen/ Hydrocodone Bitart ([place] 5/325) 1 tab Q4H PRN ORAL For Severe Pain 12/05/18 10:00 12/12/18 09:57 Aspirin (Ecotrin) 81 mg DAILY ORAL 12/06/18 09:00 01/05/19 08:59 12/06/18 10:00 Dextrose (Dextrose 50%) 25 ml Q30M PRN IV Hypoglycemia 12/04/18 22:45 01/03/19 22:44 Dextrose (Dextrose 50%) 50 ml Q30M PRN IV Hypoglycemia 12/04/18 22:45 01/03/19 22:44 12/06/18 06:22 Docusate Sodium (Colace) 200 mg DAILY ORAL 12/06/18 09:00 01/05/19 08:59 12/06/18 10:21 Duloxetine HCl (Cymbalta) 20 mg DAILY ORAL 12/06/18 09:00 01/05/19 08:59 12/06/18 10:00 Heparin Sodium (Porcine) (Heparin 5000 units/ml) 5,000 units EVERY 12 HOURS SUBQ 12/05/18 09:00 01/04/19 08:59 12/06/18 09:51 Meropenem 500 mg/ Sodium Chloride 55 ml @ 110 mls/hr Q24H IVPB 12/05/18 21:00 12/10/18 20:59 12/05/18 21:04 Nitroglycerin (Ntg) 1 patch Q24H TDERMAL 12/05/18 13:00 01/04/19 12:59 Pantoprazole (Protonix) 40 mg EVERY 12 HOURS ORAL 12/05/18 21:00 01/04/19 20:59 12/06/18 10:00 Pyridoxine HCl (Vitamin B6) 25 mg DAILY ORAL 12/06/18 09:00 01/05/19 08:59 12/06/18 10:01 Sevelamer Carbonate (Renvela) 800 mg THREE TIMES A DAY ORAL 12/05/18 13:00 01/04/19 12:59 12/06/18 09:59 Tramadol HCl (Ultram) 50 mg Q6H PRN ORAL For Mod Pain 12/05/18 09:59 12/12/18 09:58 Vitamin B Complex/ Vit C/Folic Acid (Nephrovite) 1 tab DAILY ORAL 12/06/18 09:00 01/05/19 08:59 12/06/18 09:59 Anshu Munguia MD Dec 06, 2018 12:29
--- NOTE | 2018-12-06 13:13 | Consultation ---
DATE OF CONSULTATION: 12/05/2018 INFECTIOUS DISEASES CONSULTATION CONSULTING PHYSICIAN: Anshu Munguia M.D. ATTENDING PHYSICIAN: Pam Andrade M.D. REFERRING PHYSICIAN: Dr. Frieda Clay. REASON FOR CONSULTATION: Infected right leg and foot, sepsis, UTI, leukocytosis, SIRS criteria. CHIEF COMPLAINT: The patient's chief complaint coming into the hospital is sepsis, elevated white count, UTI, history of ESBL infection. HISTORY OF PRESENT ILLNESS: This is a very pleasant 68-year-old male who is not a very good historian. He is currently in step-down unit at [facility]. The patient presented to [facility] with sepsis, elevated white count, UTI. Also was noted that he has right leg and foot looks like ischemic changes, possibly early gangrene. The patient has severe sepsis with significantly elevated white count. He currently does not have diarrhea. He does have urinary tract infection with positive UA. Imaging studies otherwise are pending. The case communicated with Dr. Frieda Clay. The patient placed on meropenem and vancomycin, pending workup. Arterial studies and cultures been ordered. MAR was noted. Orders were noted. Notes were reviewed. Notes and records reviewed. REVIEW OF SYSTEMS: The patient has a Molina. He has generalized fatigue. No focal weakness. He is responsive, but not a very good historian. HEAD AND NECK: No head pain or neck pain. No neck stiffness. CARDIAC: No chest pain. GASTROINTESTINAL: No nausea, vomiting, abdominal pain, diarrhea. GENITOURINARY: Has a Molina. PULMONARY: SKIN: No rash. No pruritus or itching. EXTREMITIES: He has right leg pain and foot pain. NEUROLOGIC: No seizures. He has wounds that I reviewed and examined. He has generalized fatigue and weakness, but no new focal weakness. No fevers. No pressors. PAST MEDICAL HISTORY: The patient's past medical history includes the following, the patient has a past medical history of UTI ESBL infection. The patient has history of right leg and foot wounds. The patient had history of hypertension and COPD. The patient has a history of diabetes, hypertension, CHF, COPD, history of renal disease, history of dialysis in the past. He has a shunt. He has history of anemia, history of infected right foot wound, history of UTI, history of ESBL, history of weakness, history of left leg amputation, left AKA. ALLERGIES: Penicillin, phenytoin. SOCIAL HISTORY: Negative for smoking, alcohol, or drug abuse. FAMILY HISTORY: Noncontributory. Negative for exposure to tuberculosis or cancer. MEDICATIONS: Upon reviewing the MAR, the patient is on the following medications. The patient is on aspirin. The patient is on Cymbalta, duloxetine, Colace, pyridoxine, meropenem, Protonix, Renvela, nitroglycerin, vancomycin, tramadol, hydrocodone. Antibiotics, vancomycin and meropenem. He was on Levaquin, aztreonam which was discontinued. He has tolerated meropenem. Outside medications noted and reconcilated. PHYSICAL EXAMINATION: VITAL SIGNS: Temperature 98.2, pulse rate of 68, respiratory rate 24, saturation 100%, blood pressure 102/63, FiO2 4 liters. GENERAL: Alert and responsive, but seems to be agitated, unclear if he has pain. No acute distress. No significant shortness of breath noted. HEAD AND NECK: Oral examination, no thrush. Eye exam, no icterus. Neck is supple. No JVD. Normocephalic. Neck is supple. No icterus or thrush. HEART: Regular. No gallop or murmur. ABDOMEN: Soft. Positive bowel sounds. Nontender. No organomegaly. LUNGS: Few bilateral rhonchi. No definite rales on exam. Decreased breath sounds. SKIN: No rash. Wounds were reviewed. MUSCULOSKELETAL: He has left [id number] amputation. His right leg without cellulitis. No evidence of septic arthritis on the right knee. On the right leg and right foot, there looks like ischemic changes, infected wound and possible early gangrene. He has left AKA. GENITOURINARY: He has a Molina. Urine is pussy and cloudy. LINE SITES: Without phlebitis. NEUROLOGIC: Generalized weakness. Responsive. He has a shunt. He is alert and responsive, somewhat agitated. No new focal changes noted. I reviewed the patient's left foot pictures on previous admission, he did not have these types of ischemic changes to at least on my notes obvious on the picture, foot looks worse on the right. Right leg and foot have ischemic changes, possible gangrene, and infected wounds. LABORATORY AND DIAGNOSTIC DATA: Laboratory data as follows, creatinine is 3.8. LFTs noted. White count 28.1, hemoglobin 9.4, platelet count 291. UA had too many to count white blood cells, 3+ leukocyte esterase, many bacteria. Cultures are pending. Arterial studies are pending. Imaging studies are pending at this time, including chest x-ray. ASSESSMENT AND PLAN: 1. The patient has sepsis, elevated white count, SIRS criteria. The patient's white count over 20,000, it was as high as 28. His heart rate has been as high as 100 which it is currently. He looks weak and looks septic. Most likely, he has a urinary tract infection and sepsis; however, in addition, his right leg and foot look there is more ischemic changes, wounds seem to be worse clinically and could have some early gangrene. There is a significant odor to the right leg and foot also. At this time, because of history of ESBL, we will place the patient on meropenem and vancomycin for gram-negative and MRSA coverage. Continue meropenem and vancomycin antibiotics. Check cultures and labs. Check arterial studies. Check urine culture and blood cultures. Check chest x-ray. It is difficult to culture the right leg wound since it is mostly ischemic and gangrenous changes, secondary to colonization with the culture. Continue meropenem and vancomycin, pending workup for sepsis, right leg and infected wound, possible gangrene, peripheral vascular disease, sepsis, and urinary tract infection. Watch leukocytosis. The patient to be seen by surgery for the right leg and foot infection. The patient may need debridement versus amputation. We will check arterial studies. Check labs, cultures, and chest x-ray. 2. The patient has end-stage renal disease on hemodialysis. He has a shunt. No hemodialysis line. 3. History of UTI. 4. Anemia. 5. Elevated creatinine. 6. Renal failure. 7. The patient has history of diabetes. 8. Hypertension. 9. COPD. 10. CHF. 11. Hypertension and diabetes treatment per primary. 12. Allergies to penicillin and phenytoin, tolerates meropenem. 13. Social history is negative for smoking, alcohol, or drug abuse. 14. Family history is noncontributory. 15. MAR was noted. 16. Case discussed with RN. 17. Continue treatment per primary consultants. 18. Case communicated with Dr. Frieda Clay. 19. Orders were noted and entered. 20. Continue treatment per primary consultants. Anshu Munguia M.D. DR: Marvin JOB#: [id number] CC:
--- NOTE | 2018-12-06 13:17 | NUR ---
NURSE NOTES: Patient dialysis complete. Patient stable with no complaints. Dialysis nurse reported 2L taken out.
--- NOTE | 2018-12-06 13:34 | Surgery Progress Note ---
Surgery Progress Note Subjective Additional Comments leukocytosis slightly improved still 20+K labs noted exam unchanged pending results of imaging Objective Last 24 Hour Vital Signs Date Time Temp Pulse Resp B/P (MAP) Pulse Ox O2 Delivery O2 Flow Rate FiO2 12/06/18 12:00 98.1 68 22 123/64 (83) 98 12/06/18 12:00 4.0 12/06/18 12:00 Bi-pap 12/06/18 09:30 66 20 97 4.0 36 12/06/18 08:06 Bi-pap 12/06/18 08:00 62 12/06/18 08:00 97.7 62 22 109/57 (74) 99 12/06/18 08:00 45 12/06/18 07:18 69 20 98 Full Face 40 12/06/18 04:35 65 22 97 Full Face 40 12/06/18 04:00 97.8 64 21 100/55 (70) 95 12/06/18 04:00 45 12/06/18 04:00 65 12/06/18 04:00 Bi-pap 12/06/18 01:15 78 25 97 Full Face 40 12/06/18 00:00 Bi-pap 12/06/18 00:00 65 12/06/18 00:00 97.8 65 22 126/64 (84) 100 12/05/18 23:22 72 28 98 Full Face 40 12/05/18 20:39 76 29 97 Full Face 41 12/05/18 20:00 98.7 66 21 119/72 (88) 99 12/05/18 20:00 Bi-pap 12/05/18 20:00 45 12/05/18 20:00 66 12/05/18 17:19 72 33 98 Full Face 45 12/05/18 16:00 45 12/05/18 16:00 Bi-pap 12/05/18 16:00 67 12/05/18 16:00 97.9 69 25 98/83 (88) 100 12/05/18 15:05 77 21 98 Full Face 45 I&O Intake and Output 12/05/18 12/06/18 19:00 07:00 Intake Total 100 ml 695 ml Output Total 200 ml 100 ml Balance -100 ml 595 ml Intake Oral 240 ml IV Total 100 ml 455 ml Output Urine Total 200 ml 100 ml Dressing: saturated Wound: other Cardiovascular: RSR Respiratory: clear Abdomen: soft, non-tender, non-distended Extremities: edema, tenderness, cyanosis Laboratory Tests Test 12/05/18 22:30 12/06/18 04:30 Troponin I 0.123 ng/mL (0.000-0.056) 0.094 ng/mL (0.000-0.056) White Blood Count 21.4 K/UL (4.8-10.8) H Red Blood Count 2.55 M/UL (4.70-6.10) L Hemoglobin 8.3 G/DL (14.2-18.0) L Hematocrit 26.7 % (42.0-52.0) L Mean Corpuscular Volume 105 FL (80-99) H Mean Corpuscular Hemoglobin 32.6 PG (27.0-31.0) H Mean Corpuscular Hemoglobin Concent 31.2 G/DL (32.0-36.0) L Red Cell Distribution Width 19.9 % (11.6-14.8) H Platelet Count 242 K/UL (150-450) Mean Platelet Volume 9.3 FL (6.5-10.1) Neutrophils (%) (Auto) % (45.0-75.0) Lymphocytes (%) (Auto) % (20.0-45.0) Monocytes (%) (Auto) % (1.0-10.0) Eosinophils (%) (Auto) % (0.0-3.0) Basophils (%) (Auto) % (0.0-2.0) Differential Total Cells Counted 100 Neutrophils % (Manual) 87 % (45-75) H Lymphocytes % (Manual) 4 % (20-45) L Monocytes % (Manual) 7 % (1-10) Eosinophils % (Manual) 0 % (0-3) Basophils % (Manual) 0 % (0-2) Band Neutrophils 2 % (0-8) Platelet Estimate Decreased L Platelet Morphology Normal Macrocytosis 2+ Target Cells 2+ Prothrombin Time 14.2 SEC (9.30-11.50) H Prothromb Time International Ratio 1.4 (0.9-1.1) H Sodium Level 136 MMOL/L (136-145) Potassium Level 5.6 MMOL/L (3.5-5.1) H Chloride Level 101 MMOL/L (98-107) Carbon Dioxide Level 24 MMOL/L (21-32) Anion Gap 11 mmol/L (5-15) Blood Urea Nitrogen 68 mg/dL (7-18) H Creatinine 4.6 MG/DL (0.55-1.30) H Estimat Glomerular Filtration Rate 12.8 mL/min (>60) Glucose Level 62 MG/DL (74-106) L Uric Acid 6.3 MG/DL (2.6-7.2) Calcium Level 9.1 MG/DL (8.5-10.1) Phosphorus Level 5.6 MG/DL (2.5-4.9) H Magnesium Level 2.4 MG/DL (1.8-2.4) Ferritin 1678 NG/ML (8-388) H Total Bilirubin 3.4 MG/DL (0.2-1.0) H Direct Bilirubin 2.7 MG/DL (0.0-0.3) H Gamma Glutamyl Transpeptidase 148 U/L (5-85) H Aspartate Amino Transf (AST/SGOT) 16 U/L (15-37) Alanine Aminotransferase (ALT/SGPT) 9 U/L (12-78) L Alkaline Phosphatase 153 U/L (46-116) H Ammonia 38 umol/L (11-32) H Total Creatine Kinase 19 U/L (26-308) L Pro-B-Type Natriuretic Peptide > 30522 pg/mL (0-125) H Total Protein 7.5 G/DL (6.4-8.2) Total Protein (PEP) Pending Albumin 1.9 G/DL (3.4-5.0) L Albumin (PEP) Pending Globulin 5.6 g/dL Globulin (PEP) Pending Albumin/Globulin Ratio 0.3 (1.0-2.7) L Yqfuu-9-Awifacemo Pending Jbtcr-8-Euvqoukla Pending Beta Globulins Pending Beta Gamma Globulin Pending PEP Abnormal Protein Bands Pending Protein Electrophoresis Interpret Pending Triglycerides Level 109 MG/DL (30-150) Cholesterol Level 85 MG/DL (< 200) LDL Cholesterol 67 mg/dL (<100) HDL Cholesterol 6 MG/DL (40-60) L Cholesterol/HDL Ratio 14.2 (3.3-4.4) H Vitamin B12 Level 1853 PG/ML (193-986) H Folate 19.4 NG/ML (8.6-58.9) Thyroid Stimulating Hormone (TSH) 3.012 uiU/mL (0.358-3.740) Random Vancomycin Level 16.8 ug/mL Immunoglobulin G Pending Immunoglobulin A Pending Immunoglobulin M Pending Immunofixation Screen Pending Plan Problems: (1) Sepsis Assessment & Plan: Patient presented on admission with necrotic wounds distal Right lower extremity and R foot -dorsal,lateral and medial aspects. R 3rd metatarsal is black. Chronic ulcer R heel that is also necrotic. Wounds/foot malodorous. Small amount brown exudate noted from dorsal wound. Soft medial necrotic 3cm area noted with denuded bleeding tissue just anterior to it. soft tissue overall with soft edema. possible abscess underlying. skin blistering and sloth noted. Partial thickness Sacral pressure injury. Base of wound is moist -viable with dark brown borders. Periwound without induration or erythema (L)4cm x (W)5cm. Tx.Plan: MRI right foot and ankle ordered to evaluate for osteo and abscess Arterial and venous duplex pending Vascular and Podiatry eval for limb salvage Wash foot daily, apply xeroform and abd, wrap with kerlix Apply Moisture Barrier Paste (Triad /Calazime )to sacrum. Cover with Optifoam drsg .Change every 3 days and prn. APM/JANELL mattress. Reposition at least Q 2hours or as tolerated. Off-Load R heel with pillow. (2) Hx of Damian Deutsch Dec 06, 2018 13:33
--- NOTE | 2018-12-06 14:03 | NUR ---
ST / SWALLOW NOTE: SEE SWALLOW EVAL IN ST CARE ACTIVITY SECTION. REFERRED BY DR HEWITT AND DR BRAVO ON THE CASE DYSPHAGIA RISK FACTORS FOR THIS 68 Y.O.M.: ACUTE WEAKNESS, SEPSIS DUE TO PNA (AND HAD HCAP 10/27 18) VS. UTI VS FOOT INFECTION, RESP DISTRESS NEEDED BIPAP DURING ADMIT AND NOW PER CHART H/O HCAP, CVA APHASIA, COPD, DM2, HTN, MDD/ANXIETY, HTN, ANEMIA, ESRD WITH HD (WEAK YESTERDAY SINCE HE DID NOT HAVE HD, CHF, MUS WEAKNESS, EMPHYSEMA, RESP FAILURE, FLUID OVERLOAD. POLST STATES OK TF BUT TOOK MEDS CRUSHED WITH PUREED OK BUT SLOWER AND REFUSED MORE SINCE TIRED PER RN AT SNF AND [facility] WAS ON REG TEXTURE AND THIN LIQUIDS BUT GETTING NEPRO ALERT WITH ADEQUATE DENTITION SOME MISSING TEETH, 4 LITERS 02 NC. NO VOICE/COUGH BUT NODS HEAD AND FOLLOWS SOME ORAL COMMANDS. NPO EXCEPT MEDS PER RN INITIAL IMPRESSIONS: S/S OF AT LEAST A MILD ORAL AND MODERATE OR WORSE PHARYNGEAL DYSPHAGIA WITH INCREASED TRANSIT TIMES. LIPS FUNCTIONAL TONGUE LOOKS DRY AND SPEED/STRENGTH REDUCED (MILD) NO VOICE AND NO COUGH (BUT HAS APHASIA ? DID NOT UNDERSTAND EVEN WITH VISUAL AND AUDITORY CUES ? PHONATORY APRAXIA NOW OR BEFORE) GIVEN TSP NECTAR THICK LIQUID, REQUIRED 3 LATE SWALLOWS WITH POOR HYOLARYNGEAL EXCURSION. HAS RISK FOR SILENT ASPIRATION GIVEN CVA AND HAS PNA NOW AND ON 10/27/18 RECOMMENDATIONS: NPO, CONTINUE WITH ORAL CARE NGT 12 SMALL DIAMETER PREFERRED MOD BARIUM SWALLOW TO FURTHER ASSESS SWALLOW, DETERMINE SILENT ASP RISK AND ATTEMPT TRIAL TX DYSPHAGIA MANAGEMENT AND TX D/W DR BRAVO WHO AGREED TO VIDEO AND NPO/NGT REC AND D/W SONG MALONE ORAL CARE AND ASP PREC POSTED
--- NOTE | 2018-12-06 14:28 | Nephrology Progress Note ---
Assessment/Plan Problem List: (1) ESRF (end stage renal failure) (2) Leukocytosis (3) CHF (congestive heart failure) (4) Acute respiratory failure (5) Hyperbilirubinemia Assessment admitted with sepsis and shortness of breath (1) ESRD (end stage renal disease) right arm fistula (2) Possible Fluid overload, unspecified (3) h/o Bradycardia (4) Anemia (5) h/o Pleural effusion (6) Elevated troponin (7) Allergy Dialntin & PCN (8) Elevated Bili Plan was on bipap , now is on O2 cannula HD and UF in process now adjust BP meds 2D Echo :checked last admission results, none found- will order stop beta blockers for low HR hydralazin and procardia as needed reviewe CXR : Pneumonia per consultants Surgery note: Patient presented on admission with necrotic wounds distal Right lower extremity and R foot -dorsal,lateral and medial aspects. R 3rd metatarsal is black. Chronic ulcer R heel that is also necrotic. Wounds/foot malodorous. Small amount brown exudate noted from dorsal wound. Soft medial necrotic 3cm area noted with denuded bleeding tissue just anterior to it. soft tissue overall with soft edema. possible abscess underlying. skin blistering and sloth noted. Partial thickness Sacral pressure injury. Base of wound is moist -viable with dark brown borders. Periwound without induration or erythema (L)4cm x (W)5cm. Currently afebrile and hemodynamically stable. Patient continues to have a leukocytosis. Still pending imaging. Given the appearance of the leg and wound there is significant concern for potential need of amputation. Subjective ROS Limited/Unobtainable: No Constitutional: Reports: malaise, weakness Objective Objective Last 24 Hour Vital Signs Date Time Temp Pulse Resp B/P (MAP) Pulse Ox O2 Delivery O2 Flow Rate FiO2 12/06/18 12:00 98.1 68 22 123/64 (83) 98 12/06/18 12:00 4.0 12/06/18 12:00 Bi-pap 12/06/18 09:30 66 20 97 4.0 36 12/06/18 08:06 Bi-pap 12/06/18 08:00 62 12/06/18 08:00 97.7 62 22 109/57 (74) 99 12/06/18 08:00 45 12/06/18 07:18 69 20 98 Full Face 40 12/06/18 04:35 65 22 97 Full Face 40 12/06/18 04:00 97.8 64 21 100/55 (70) 95 12/06/18 04:00 45 12/06/18 04:00 65 12/06/18 04:00 Bi-pap 12/06/18 01:15 78 25 97 Full Face 40 12/06/18 00:00 Bi-pap 12/06/18 00:00 65 12/06/18 00:00 97.8 65 22 126/64 (84) 100 12/05/18 23:22 72 28 98 Full Face 40 12/05/18 20:39 76 29 97 Full Face 41 12/05/18 20:00 98.7 66 21 119/72 (88) 99 12/05/18 20:00 Bi-pap 12/05/18 20:00 45 12/05/18 20:00 66 12/05/18 17:19 72 33 98 Full Face 45 12/05/18 16:00 45 12/05/18 16:00 Bi-pap 12/05/18 16:00 67 12/05/18 16:00 97.9 69 25 98/83 (88) 100 12/05/18 15:05 77 21 98 Full Face 45 Intake and Output 12/05/18 12/06/18 19:00 07:00 Intake Total 100 ml 695 ml Output Total 200 ml 100 ml Balance -100 ml 595 ml Intake Oral 240 ml IV Total 100 ml 455 ml Output Urine Total 200 ml 100 ml Laboratory Tests 12/05/18 22:30: Troponin I 0.123H 12/06/18 04:30: Troponin I 0.094H, White Blood Count 21.4H, Red Blood Count 2.55L, Hemoglobin 8.3L, Hematocrit 26.7L, Mean Corpuscular Volume 105H, Mean Corpuscular Hemoglobin 32.6H, Mean Corpuscular Hemoglobin Concent 31.2L, Red Cell Distribution Width 19.9H, Platelet Count 242, Mean Platelet Volume 9.3, Neutrophils (%) (Auto) , Lymphocytes (%) (Auto) , Monocytes (%) (Auto) , Eosinophils (%) (Auto) , Basophils (%) (Auto) , Differential Total Cells Counted 100, Neutrophils % (Manual) 87H, Lymphocytes % (Manual) 4L, Monocytes % (Manual) 7, Eosinophils % (Manual) 0, Basophils % (Manual) 0, Band Neutrophils 2 , Platelet Estimate DecreasedL, Platelet Morphology Normal, Macrocytosis 2+, Target Cells 2+, Prothrombin Time 14.2H, Prothromb Time International Ratio 1.4H , Sodium Level 136, Potassium Level 5.6H, Chloride Level 101, Carbon Dioxide Level 24, Anion Gap 11, Blood Urea Nitrogen 68H, Creatinine 4.6H, Estimat Glomerular Filtration Rate 12.8, Glucose Level 62L, Uric Acid 6.3, Calcium Level 9.1, Phosphorus Level 5.6H, Magnesium Level 2.4, Ferritin 1678H, Total Bilirubin 3.4H, Direct Bilirubin 2.7H, Gamma Glutamyl Transpeptidase 148H, Aspartate Amino Transf (AST/SGOT) 16, Alanine Aminotransferase (ALT/SGPT) 9L, Alkaline Phosphatase 153H, Ammonia 38H, Total Creatine Kinase 19L, Pro-B-Type Natriuretic Peptide > 76183I, Total Protein 7.5, Total Protein (PEP) [Pending], Albumin 1.9L, Albumin (PEP) [Pending], Globulin 5.6, Globulin (PEP) [Pending], Albumin/Globulin Ratio 0.3L, Vwmqw-8-Nyxafycwx [Pending], Kzqzs-6-Kxsfqyjsh [ Pending], Beta Globulins [Pending], Beta Gamma Globulin [Pending], PEP Abnormal Protein Bands [Pending], Protein Electrophoresis Interpret [Pending], Triglycerides Level 109, Cholesterol Level 85, LDL Cholesterol 67, HDL Cholesterol 6L, Cholesterol/HDL Ratio 14.2H, Vitamin B12 Level 1853H, Folate 19.4, Thyroid Stimulating Hormone (TSH) 3.012, Random Vancomycin Level 16.8, Immunoglobulin G [Pending], Immunoglobulin A [Pending], Immunoglobulin M [ Pending], Immunofixation Screen [Pending] Height (Feet): 5 Height (Inches): 4.00 Weight (Pounds): 133 General Appearance: lethargic Cardiovascular: normal rate Respiratory/Chest: decreased breath sounds Abdomen: distended Alessandro Price MD Dec 06, 2018 14:28
[2018-12-06] MEDS: Nitroglycerin Patch 0.4mg TDERMAL SCH (14:46)
--- NOTE | 2018-12-06 15:02 | NUR ---
RD ASSESSMENT & RECOMMENDATIONS SEE CARE ACTIVITY FOR COMPLETE ASSESSMENT DAILY ESTIMATED NEEDS: Needs based on ESRD on HD, wounds, pulmonary/ 56kg 30-35 kcals/kg 6201-0869 total kcals 1.5-2.0 g protein/kg 84-112 g total protein Fluid per MD, on HD NUTRITION DIAGNOSIS: * Increased kcal and protein needs r/t wound healing and renal dysfunction as evidenced by pt w/ partial thickness wound @ sacrum and necrotic wounds @ Right lower extremity and R foot, ESRD dx, on HD. * Swallowing difficulty R/T dysphagia, respiratory status as evidenced by COLLET GLUER recommends NPO at this time, w/ an order for NGT insertion, pt on BIPAP. CURRENT DIET:NPO PO DIET RECOMMENDATIONS: When safe for PO -> RENAL DIET/ texture per COLLET GLUER ENTERAL NUTRITION RECOMMENDATIONS: Nepro @ 40ml/hr x 24 hrs + Prosource 1pkt QD to provide 960ml, 1728kcal, 77g + 11g prot, 698ml free water * W/ GI access and when medically appropriate, initiate Nepro @ 10ml/hr x 6hrs. * Advance 10ml q 4-6 hrs as tolerated to goal rate. * Add Prosource 1pkt daily to meet protein needs * HOB over 30 degrees/ water flush per MD ADDITIONAL RECOMMENDATIONS: 1) Wound healing:w/ GI access, add Sy 1pkt BID 2) Calibrated bedscale wt for accurate CBW- obtain dry wt post HD 3) Monitor lytes closely 4) Monitor BGs, need for hypoglycemic agents- h/o DM Addendum: 12/06/18 at [address] [Addendum] per SONG, pt is now off BIPAP
--- NOTE | 2018-12-06 15:54 | NUR ---
Social Service Note SW met with patient to address completion of a living will. SW explained that SW was unable to assist with completion of a living will but could provide resources and contact the [facility] once patient returns to his alf. Patient stated he understood and has been working with alf staff. SW address POLST which he completed in SNF indicating full code and full treatment. Patient states that these are his wishes and would want to attempt aggressive care until his family could be contacted. Patient states he has family in [place] and asked SW to contact his sister. Patient unable to provide her phone number. Patient asked SW for possible placement in the [place] to be closer to friends. Patient couldn't provide a location in the [place] or friends contact information. SW obtained sister's contact information from [facility] SW. Sister Lucretia [phone] or [phone], [place] phone numbers. SW attempted to contact using [employer] phone, unable to leave a message. Patient would like family to know about his declining condition. Patient receives dialysis at [facility] [phone] (p) [phone] (f) 7am. Will follow up in contacting family.
[2018-12-06 16:00] VITALS: BP_SYST 124; BP_SYST 144; BP_DIAS 77; BP_DIAS 97
[2018-12-06] MEDS ORDERED: Isovue-370 150ml vial INJ PRN ×2 (17:00)
--- NOTE | 2018-12-06 17:23 | NUR ---
INTERVENTION MANAGERGENETIC PHYSICIAN SI:RESPIRATORY DISTRESS VS: BP 109/57, P 62, T 97.7, RR 22, SpO2 97 on 4.0 Bi-pap FiO2 45 WBC 21.4 RBC 2.55, K 5.6, BUN 68, CR 4.6, Total Bilirubin 3.4 CXR Impression: Increased patchy parenchymal opacities on the right, since prior exam of one day earlier, may reflect increasing pneumonia or pulmonary edema. IS:CYMBALTA 20mg MEROPENEM 500mg PROTONIX 40mg NTG 1 PATCH D50 IV SDSU STATUS
--- NOTE | 2018-12-06 19:22 | NUR ---
HAND-OFF: Report given to Rafal Gomez RN.
--- NOTE | 2018-12-06 19:23 | NUR ---
NURSE NOTES: BEDSIDE REPORT RECEIVED FROM SONG MALONE. PT IS X3-4 IN REPORT BUT PT IS UNCOOPERATIVE AND NOT RESPONDING TO QUESTIONS AT THIS TIME. HOME APPLIANCE TECHNICIAN SHOWING NSR. O2 2L SATING AT 90%. NEPRO @ 40 ORDERED, NEED TO CONFIRM NGT PLACEMENT BEFORE. LAST BM IS 12/06, OB STOOL PENDING. GATICA INTACT, ESRD PT, LOW URINE OUTPUT. P200 MATRESS NOTED, R FOOT NECROTIC, SACRAL S2. LAC 20G, DEEPTI SHUNT NOTED; ASYMPTOMATIC. LABS OK PER RN. BED IS LOCKED IN LOWEST POSITION, SR X3, CALL JOHN W/ IN REACH, BED ALARM ON. WILL CONTINUE TO MONITOR AND FOLLOW PLAN OF CARE.
[2018-12-06 20:00] VITALS: BP 114/60
[2018-12-06] MEDS: Meropenem 500 MG in NS 55 ML IVPB SCH (20:32)
[2018-12-06] MEDS: Betadine 4oz Bottle TOPIC SCH (20:37)
[2018-12-06] MEDS ORDERED: Vancomycin 750mg/NS 275ml IVPB ONE ×2 (21:00)
--- NOTE | 2018-12-06 23:09 | General Progress Note ---
Assessment/Plan Assessment/Plan Assessment 68 year old male with PMH of DM, ESRD on HD (MWF - Last 12/03/18), s/p BKA, L chronic pressure ulcer and PVD was transferred from SNF for acute onset of shortness of breath and altered mental status, admitted for sepsis likely 2/2 R foot infection vs UTI vs PNA Plan #Sepsis 2/2 R foot infection vs UTI vs PNA #Acute encephalopathy 2/2 infectious process #Acute hypercapnic respiratory failure 2/2 PNA -Cont vancomycin and meropenen -Cont BiPAP, NPO while on BIPAP - will transition to NC today -ABP PRN -ID consult appreciated -Surgery consult appreciated -pending MRI right foot and ankle ordered to evaluate for osteo and abscess -Pending Arterial and venous duplex -Vascular and podiatry consulted -daily care per surgery -Pulmonary consult appreciated -Pending LE doppler #Leukocytosis likly 2/2 infection vs leukomoid infection -improving -Hematology consulted #DM now hypoglycemic -hypoglycemia likley 2/2 sepsis -hold antiDM medications -FSG Q6hrs -Currently NPO, D10@ 50 started -Monitor respiratory status #ESRD on HD (MWF) via R arm fistula #HyperKalemia -Last HD 12/03/18 -no signs of fluid overload -nephrology consulted -CTM electrolytes -Plan for HD today Code status with discussion: Full I spent 45 min on this patients care, and 36 min was dedicated to counseling and /or care coordination Subjective Date patient seen: Dec 06, 2018 ROS Limited/Unobtainable: No - 2/2 mental status Allergies: Coded Allergies: PENICILLINS (Unverified Allergy, Mild, 12/05/18) PHENYTOIN (Verified Allergy, Unknown, 10/17/18) Uncoded Allergies: PENICILLIN (Allergy, Mild, 11/17/18) Objective Last 24 Hour Vital Signs Date Time Temp Pulse Resp B/P (MAP) Pulse Ox O2 Delivery O2 Flow Rate FiO2 12/06/18 19:13 97 Nasal Cannula 3.0 32 12/06/18 19:13 Nasal Cannula 3.0 32 12/06/18 16:00 4.0 12/06/18 16:00 Bi-pap 12/06/18 16:00 97.2 66 22 124/77 (93) 98 12/06/18 15:10 66 12/06/18 14:46 108/66 12/06/18 12:00 98.1 68 22 123/64 (83) 98 12/06/18 12:00 4.0 12/06/18 12:00 Bi-pap 12/06/18 12:00 63 12/06/18 09:30 66 20 97 4.0 36 12/06/18 08:06 Bi-pap 12/06/18 08:00 62 12/06/18 08:00 97.7 62 22 109/57 (74) 99 12/06/18 08:00 45 12/06/18 07:18 69 20 98 Full Face 40 12/06/18 04:35 65 22 97 Full Face 40 12/06/18 04:00 97.8 64 21 100/55 (70) 95 12/06/18 04:00 45 12/06/18 04:00 65 12/06/18 04:00 Bi-pap 12/06/18 01:15 78 25 97 Full Face 40 12/06/18 00:00 Bi-pap 12/06/18 00:00 65 12/06/18 00:00 97.8 65 22 126/64 (84) 100 12/05/18 23:22 72 28 98 Full Face 40 Intake and Output 12/05/18 12/06/18 19:00 07:00 Intake Total 100 ml 695 ml Output Total 200 ml 100 ml Balance -100 ml 595 ml Intake Oral 240 ml IV Total 100 ml 455 ml Output Urine Total 200 ml 100 ml Laboratory Tests 12/06/18 04:30: White Blood Count 21.4H, Red Blood Count 2.55L, Hemoglobin 8.3L, Hematocrit 26.7L, Mean Corpuscular Volume 105H, Mean Corpuscular Hemoglobin 32.6H, Mean Corpuscular Hemoglobin Concent 31.2L, Red Cell Distribution Width 19.9H, Platelet Count 242, Mean Platelet Volume 9.3, Neutrophils (%) (Auto) , Lymphocytes (%) (Auto) , Monocytes (%) (Auto) , Eosinophils (%) (Auto) , Basophils (%) (Auto) , Differential Total Cells Counted 100, Neutrophils % ( Manual) 87H, Lymphocytes % (Manual) 4L, Monocytes % (Manual) 7, Eosinophils % ( Manual) 0, Basophils % (Manual) 0, Band Neutrophils 2, Platelet Estimate DecreasedL, Platelet Morphology Normal, Macrocytosis 2+, Target Cells 2+, Prothrombin Time 14.2H, Prothromb Time International Ratio 1.4H, Sodium Level 136, Potassium Level 5.6H, Chloride Level 101, Carbon Dioxide Level 24, Anion Gap 11, Blood Urea Nitrogen 68H, Creatinine 4.6H, Estimat Glomerular Filtration Rate 12.8, Glucose Level 62L, Uric Acid 6.3, Calcium Level 9.1, Phosphorus Level 5.6H, Magnesium Level 2.4, Ferritin 1678H, Total Bilirubin 3.4H, Direct Bilirubin 2.7H, Gamma Glutamyl Transpeptidase 148H, Aspartate Amino Transf (AST/ SGOT) 16, Alanine Aminotransferase (ALT/SGPT) 9L, Alkaline Phosphatase 153H, Ammonia 38H, Total Creatine Kinase 19L, Troponin I 0.094H, C-Reactive Protein, Quantitative 20.3H, Pro-B-Type Natriuretic Peptide > 77885W, Total Protein 7.5, Total Protein (PEP) [Pending], Albumin 1.9L, Albumin (PEP) [Pending], Globulin 5.6, Globulin (PEP) [Pending], Albumin/Globulin Ratio 0.3L, Ggvbg-5-Hxikvsxtr [ Pending], Tjfon-2-Dbnhsfpnv [Pending], Beta Globulins [Pending], Beta Gamma Globulin [Pending], PEP Abnormal Protein Bands [Pending], Protein Electrophoresis Interpret [Pending], Triglycerides Level 109, Cholesterol Level 85, LDL Cholesterol 67, HDL Cholesterol 6L, Cholesterol/HDL Ratio 14.2H, Vitamin B12 Level 1853H, Folate 19.4, Thyroid Stimulating Hormone (TSH) 3.012, Random Vancomycin Level 16.8, Immunoglobulin G [Pending], Immunoglobulin A [ Pending], Immunoglobulin M [Pending], Immunofixation Screen [Pending] 12/06/18 18:30: Stool Occult Blood [Pending] Height (Feet): 5 Height (Inches): 4.00 Weight (Pounds): 133 Objective General: calm, appears stated age, on bipap Head: normocephalic, without obvious abnormality, atraumatic Eyes: conjunctivae/corneas clear. PERRL, EOM's intact Throat: lips, mucosa, and tongue normal. MMM Neck: supple, symmetrical, trachea midline, and no JVD Lungs: decreased effort, no wheezing, crackles or rhonchi from anterior chest Heart: regular rate and rhythm, S1, S2 normal, no murmur, click, rub or gallop Abdomen: soft, non-tender, non-distended, bowel sounds normal; no masses or organomegaly Extremities: L BKA, R stage 4 heel ulcer, R dorsum with dark discoloration, foul odor, +pus Pulses: +1 pulse Skin: skin color, texture, turgor normal; no rashes or lesions Neurologic: unable to assess Frieda Miller MD Dec 06, 2018 23:09
--- NOTE | 2018-12-06 23:41 | Consultation ---
History of Present Illness General Chief Complaint: Generalized Weakness Reason for Consultation: lower extremity wound Present Illness Allergies: Coded Allergies: PENICILLINS (Unverified Allergy, Mild, 12/05/18) PHENYTOIN (Verified Allergy, Unknown, 10/17/18) Uncoded Allergies: PENICILLIN (Allergy, Mild, 11/17/18) Medication History Scheduled Amlodipine Besylate* (Amlodipine Besylate*), 10 MG ORAL DAILY, (Reported) Aspirin Ec* (Aspirin Ec*), 81 MG ORAL DAILY, (Reported) Atenolol* (Tenormin*), 50 MG ORAL TWICE A DAY, (Reported) Docusate Sodium* (Docusate Sodium*), 200 MG ORAL DAILY, (Reported) Duloxetine (Cymbalta), 20 MG ORAL DAILY, (Reported) Levofloxacin* (Levaquin*), 250 MG ORAL DAILY Metronidazole* (Flagyl*), 500 MG ORAL EVERY 8 HOURS Pyridoxine Hcl* (Vitamin B-6*), 25 MG ORAL DAILY, (Reported) Sevelamer Carbonate* (Renvela*), 800 MG ORAL THREE TIMES A DAY, (Reported) Vitamin B Cmplx/Vit C/Folic AC (Nephro-Trent Tablet), 1 TAB ORAL DAILY, (Reported ) Scheduled PRN Hydrocodone Bit/Acetaminophen 5-325* (Patterson 5-325*), 1 TAB ORAL Q4H PRN for For Pain, (Reported) Tramadol Hcl* (Ultram*), 50 MG ORAL Q6H PRN for For Pain, (Reported) Miscellaneous Medications Insulin Lispro (Humalog), 0 SUBQ, (Reported) Linagliptin (Tradjenta), 5 MG PO, (Reported) Methoxy Peg-Epoetin Beta (Mircera), 100 MCG IJ, (Reported) [lipovitan], (Reported) Patient History Healthcare decision maker N Resuscitation status Full Code Advanced Directive on File Physical Exam Last 24 Hour Vital Signs Date Time Temp Pulse Resp B/P (MAP) Pulse Ox O2 Delivery O2 Flow Rate FiO2 12/06/18 19:13 97 Nasal Cannula 3.0 32 12/06/18 19:13 Nasal Cannula 3.0 32 12/06/18 16:00 4.0 12/06/18 16:00 Bi-pap 12/06/18 16:00 97.2 66 22 124/77 (93) 98 3/14/19 15:10 66 12/06/18 14:46 108/66 12/06/18 12:00 98.1 68 22 123/64 (83) 98 12/06/18 12:00 4.0 12/06/18 12:00 Bi-pap 12/06/18 12:00 63 12/06/18 09:30 66 20 97 4.0 36 12/06/18 08:06 Bi-pap 12/06/18 08:00 62 12/06/18 08:00 97.7 62 22 109/57 (74) 99 12/06/18 08:00 45 12/06/18 07:18 69 20 98 Full Face 40 12/06/18 04:35 65 22 97 Full Face 40 12/06/18 04:00 97.8 64 21 100/55 (70) 95 12/06/18 04:00 45 12/06/18 04:00 65 12/06/18 04:00 Bi-pap 12/06/18 01:15 78 25 97 Full Face 40 12/06/18 00:00 Bi-pap 12/06/18 00:00 65 12/06/18 00:00 97.8 65 22 126/64 (84) 100 Intake and Output 12/05/18 12/06/18 19:00 07:00 Intake Total 100 ml 695 ml Output Total 200 ml 100 ml Balance -100 ml 595 ml Intake Oral 240 ml IV Total 100 ml 455 ml Output Urine Total 200 ml 100 ml Laboratory Tests Test 12/06/18 04:30 12/06/18 18:30 White Blood Count 21.4 K/UL (4.8-10.8) H Red Blood Count 2.55 M/UL (4.70-6.10) L Hemoglobin 8.3 G/DL (14.2-18.0) L Hematocrit 26.7 % (42.0-52.0) L Mean Corpuscular Volume 105 FL (80-99) H Mean Corpuscular Hemoglobin 32.6 PG (27.0-31.0) H Mean Corpuscular Hemoglobin Concent 31.2 G/DL (32.0-36.0) L Red Cell Distribution Width 19.9 % (11.6-14.8) H Platelet Count 242 K/UL (150-450) Mean Platelet Volume 9.3 FL (6.5-10.1) Neutrophils (%) (Auto) % (45.0-75.0) Lymphocytes (%) (Auto) % (20.0-45.0) Monocytes (%) (Auto) % (1.0-10.0) Eosinophils (%) (Auto) % (0.0-3.0) Basophils (%) (Auto) % (0.0-2.0) Differential Total Cells Counted 100 Neutrophils % (Manual) 87 % (45-75) H Lymphocytes % (Manual) 4 % (20-45) L Monocytes % (Manual) 7 % (1-10) Eosinophils % (Manual) 0 % (0-3) Basophils % (Manual) 0 % (0-2) Band Neutrophils 2 % (0-8) Platelet Estimate Decreased L Platelet Morphology Normal Macrocytosis 2+ Target Cells 2+ Prothrombin Time 14.2 SEC (9.30-11.50) H Prothromb Time International Ratio 1.4 (0.9-1.1) H Sodium Level 136 MMOL/L (136-145) Potassium Level 5.6 MMOL/L (3.5-5.1) H Chloride Level 101 MMOL/L (98-107) Carbon Dioxide Level 24 MMOL/L (21-32) Anion Gap 11 mmol/L (5-15) Blood Urea Nitrogen 68 mg/dL (7-18) H Creatinine 4.6 MG/DL (0.55-1.30) H Estimat Glomerular Filtration Rate 12.8 mL/min (>60) Glucose Level 62 MG/DL (74-106) L Uric Acid 6.3 MG/DL (2.6-7.2) Calcium Level 9.1 MG/DL (8.5-10.1) Phosphorus Level 5.6 MG/DL (2.5-4.9) H Magnesium Level 2.4 MG/DL (1.8-2.4) Ferritin 1678 NG/ML (8-388) H Total Bilirubin 3.4 MG/DL (0.2-1.0) H Direct Bilirubin 2.7 MG/DL (0.0-0.3) H Gamma Glutamyl Transpeptidase 148 U/L (5-85) H Aspartate Amino Transf (AST/SGOT) 16 U/L (15-37) Alanine Aminotransferase (ALT/SGPT) 9 U/L (12-78) L Alkaline Phosphatase 153 U/L (46-116) H Ammonia 38 umol/L (11-32) H Total Creatine Kinase 19 U/L (26-308) L Troponin I 0.094 ng/mL (0.000-0.056) C-Reactive Protein, Quantitative 20.3 mg/dL (0.00-0.90) H Pro-B-Type Natriuretic Peptide > 55516 pg/mL (0-125) H Total Protein 7.5 G/DL (6.4-8.2) Total Protein (PEP) Pending Albumin 1.9 G/DL (3.4-5.0) L Albumin (PEP) Pending Globulin 5.6 g/dL Globulin (PEP) Pending Albumin/Globulin Ratio 0.3 (1.0-2.7) L Svamq-9-Ddjiuthqf Pending Gvoby-9-Idxlnntmg Pending Beta Globulins Pending Beta Gamma Globulin Pending PEP Abnormal Protein Bands Pending Protein Electrophoresis Interpret Pending Triglycerides Level 109 MG/DL (30-150) Cholesterol Level 85 MG/DL (< 200) LDL Cholesterol 67 mg/dL (<100) HDL Cholesterol 6 MG/DL (40-60) L Cholesterol/HDL Ratio 14.2 (3.3-4.4) H Vitamin B12 Level 1853 PG/ML (193-986) H Folate 19.4 NG/ML (8.6-58.9) Thyroid Stimulating Hormone (TSH) 3.012 uiU/mL (0.358-3.740) Random Vancomycin Level 16.8 ug/mL Immunoglobulin G Pending Immunoglobulin A Pending Immunoglobulin M Pending Immunofixation Screen Pending Stool Occult Blood Pending Height (Feet): 5 Height (Inches): 4.00 Weight (Pounds): 133 Medications Current Medications Medications (Trade) Dose Ordered Sig/Ronald Route PRN Reason Start Time Stop Time Status Last Admin Dose Admin Acetaminophen/ Hydrocodone Bitart (Patterson 5/325) 1 tab Q4H PRN ORAL For Severe Pain 12/05/18 10:00 12/12/18 09:57 Aspirin (Ecotrin) 81 mg DAILY ORAL 12/06/18 09:00 01/05/19 08:59 12/06/18 10:00 Dextrose (Dextrose 50%) 25 ml Q30M PRN IV Hypoglycemia 12/04/18 22:45 01/03/19 22:44 Dextrose (Dextrose 50%) 50 ml Q30M PRN IV Hypoglycemia 12/04/18 22:45 01/03/19 22:44 12/06/18 18:23 Docusate Sodium (Colace) 200 mg DAILY ORAL 12/06/18 09:00 01/05/19 08:59 12/06/18 10:21 Duloxetine HCl (Cymbalta) 20 mg DAILY ORAL 12/06/18 09:00 01/05/19 08:59 12/06/18 10:00 Heparin Sodium (Porcine) (Heparin 5000 units/ml) 5,000 units EVERY 12 HOURS SUBQ 12/05/18 09:00 01/04/19 08:59 12/06/18 20:37 Iopamidol (Isovue-370 150ml) 150 ml NOW PRN INJ Radiology Procedure 12/06/18 17:00 12/08/18 16:48 Iopamidol (Isovue-370 150ml) 150 ml NOW PRN INJ Radiology Procedure 12/06/18 17:00 12/08/18 16:48 Meropenem 500 mg/ Sodium Chloride 55 ml @ 110 mls/hr Q24H IVPB 12/05/18 21:00 12/10/18 20:59 12/06/18 20:32 Nitroglycerin (Ntg) 1 patch Q24H TDERMAL 12/05/18 13:00 01/04/19 12:59 12/06/18 14:46 Pantoprazole (Protonix) 40 mg EVERY 12 HOURS ORAL 12/05/18 21:00 01/04/19 20:59 12/06/18 20:32 Povidone Iodine (Betadine María) 1 applic QHS TOPIC 12/06/18 21:00 01/05/19 20:59 Pyridoxine HCl (Vitamin B6) 25 mg DAILY ORAL 12/06/18 09:00 01/05/19 08:59 12/06/18 10:01 Sevelamer Carbonate (Renvela) 800 mg THREE TIMES A DAY ORAL 12/05/18 13:00 01/04/19 12:59 12/06/18 18:23 Tramadol HCl (Ultram) 50 mg Q6H PRN ORAL For Mod Pain 12/05/18 09:59 12/12/18 09:58 Vitamin B Complex/ Vit C/Folic Acid (Nephrovite) 1 tab DAILY ORAL 12/06/18 09:00 01/05/19 08:59 12/06/18 09:59 Assessment/Plan Assessment/Plan Hematology/Oncology Consultation Requesting MD: Pam Andrade M.D. Date of Service: 12/06/18 Reason for consultation: Leukocytosis and anemia HISTORY OF PRESENT ILLNESS: 68-year-old male who presented to [facility] with sepsis, elevated white count, UTI. He has right leg and foot looks like ischemic changes, possibly early gangrene. The patient has severe sepsis with significantly elevated white count. The patient was placed on meropenem and vancomycin, pending workup. Hematology/Oncology was consulted for Leukocytosis and Anemia. WBC 21, HGB 8.3. Anemia panel reviewed. PAST MEDICAL HISTORY: UTI ESBL infection, right leg and foot wound, COPD, diabetes, hypertension, CHF, COPD, history of renal disease, dialysis in the past. He has a shunt. history of infected right foot wound, history of UTI, history of left leg amputation, left AKA. ALLERGIES: Penicillin, phenytoin. SOCIAL HISTORY: Negative for smoking, alcohol, or drug abuse. FAMILY HISTORY: Noncontributory. Negative for exposure to tuberculosis or cancer. MEDICATIONS: Reviewed PHYSICAL EXAMINATION: VITAL SIGNS: Reviewed saturation 100%, blood pressure 102/63, FiO2 4 liters. GENERAL: Alert and responsive No significant shortness of breath noted. HEAD AND NECK: Oral examination, no thrush. Neck is supple. No JVD. HEART: Regular. No gallop or murmur. ABDOMEN: Soft. Positive bowel sounds. Nontender. No organomegaly. LUNGS: Few bilateral rhonchi. No definite rales on exam. Decreased breath sounds. SKIN: No rash. Wounds were reviewed. MUSCULOSKELETAL: He has left [id number]-[id number]-mjoz amputation. His right leg without cellulitis. He has left AKA. GENITOURINARY: He has a [place] LABORATORY AND DIAGNOSTIC DATA: WBC 21, hgb 8.3, plt 242 Laboratory Tests Test 12/06/18 18:30 Stool Occult Blood Pending ASSESSMENT/RECS: # Leukocytosis/Elevated white blood cell count, unspecified likely related to underlying stress reaction, smoking, or underlying infection (especially if bandemia is noted) --> have reviewed peripheral smear and bandemia/neutrophilia noted --> esr and crp elevated on prior labs --> continue on meropenem and vancomycin started by ID team --> monitor for resolution 28k-->21k --> flow cytometry pending # Anemia of chronic disease due to underlying chronic medical issues, multifactorial --> Anemia workup has been reviewed, Ferritin 1678 --> No evidence of hemolysis is noted, peripheral smear has been reviewed. --> Hgb goal >7. Transfuse prn. --> Epogen or iron at this time is not particularly indicated --> Medications have been reviewed # Coagulopathy with elevated inr --> consider repeat in one week --> if persists consider mixing study # Sepsis, elevated white count --> on meropenem and vancomycin, pending workup for sepsis --> appreciate ID recs # End-stage renal disease on hemodialysis --> appreciate nephro recs # R foot infection vs UTI vs PNA --> appreciate ID recs # Acute hypercapnic respiratory failure , Cont BiPAP, --> appreciate pulm recs The timing of this note does not necessarily reflect the time of the patient was seen. Greatly appreciate consultation! Vadim Márquez MD Dec 06, 2018 23:41
[2018-12-07] VITALS: BP 105/55
[2018-12-07 04:00] VITALS: BP 110/60
--- NOTE | 2018-12-07 06:30 | NUR ---
NURSE NOTES: PT BLOOD GLUCOSE 59. WILL GIVE D50. WILL RECHECK IN 15.
--- NOTE | 2018-12-07 06:45 | NUR ---
NURSE NOTES: GLUCOSE IS 122 NOW. PAGED . AWAITING CALL BACK.
--- NOTE | 2018-12-07 06:51 | NUR ---
NURSE NOTES: PT REFUSED AM LABS, WILL ALERT ONCOMING RN TO ATTEMPT LATER.
--- NOTE | 2018-12-07 07:04 | NUR ---
HAND-OFF: Report given to SONG MALONE.
--- NOTE | 2018-12-07 07:05 | NUR ---
NURSE NOTES: RECEIVED PATIENT FROM Rafal FLORES RN. PATIENT IS LYING IN BED, AWAKE, ALERT AND RESPONSIVE. HOOKED TO [facility] [place]. ON 2L NC. NO SIGNS OF DISTRESS OF THE MOMENT. NGT PN R NARE. GTF RUNNING NEPRO AT 20CC/HR. GATICA CATH CONNECTED TO BAG. SKIN ALTERATION NOTED. ON OVERLAY MATTRESS. NOTED L AKA. IV ON L AC G20, SL. R UA AV SHUNT FOR HD. CALL LIGHT WITHIN REACH. SIDE RAILS UP. BED AT LOWEST POSITION. WILL CONTINUE TO MONITOR.
[2018-12-07 08:00] VITALS: BP 118/67
[2018-12-07] MEDS: Pyridoxine 50mg tab ORAL SCH (08:35)
[2018-12-07] MEDS: Aspirin EC 81mg tab ORAL SCH (08:36)
[2018-12-07] MEDS: Docusate 100mg cap ORAL SCH (08:36)
[2018-12-07] MEDS: Nephrovite tab (Rena-Vite) ORAL SCH (08:36)
[2018-12-07] MEDS: Renvela 800mg Pkt ORAL SCH ×3 (08:36→17:24)
[2018-12-07] MEDS: Heparin 5000 units/ml inj SUBQ SCH ×2 (08:38→20:18)
--- NOTE | 2018-12-07 09:09 | NUR ---
RADIOLOGY DEPT., CHEST X-RAY DONE..-P.DYE
--- NOTE | 2018-12-07 09:35 | Diagnostic Imaging Report ---
Indication: Shortness of breath Technique: One view of the chest Comparison: 12/05/2018 Findings: Interim placement of a nasogastric tube, tip projecting at the level gastric fundus, proximal port probably beyond the gastroesophageal junction. Bilateral interstitial and airspace opacities appear similar to the previous study. Right arm and innominate venous stents are again demonstrated. Impression: Interim nasogastric tube placement. Otherwise little change management facilitator 2 days
--- NOTE | 2018-12-07 10:01 | Pulmonology Progress Note ---
Assessment/Plan Problems: (1) Acute respiratory failure (2) Severe sepsis (3) ESRF (end stage renal failure) (4) Diabetes mellitus (5) Decubitus ulcer of right heel, stage 4 (6) Acute metabolic encephalopathy (7) S/P BKA (below knee amputation) Assessment/Plan afebrile wbc decreasing sputum has Staph aureus imaging from decubiti ulcers are pending off bipap, tolerating nasal cannula dvt prophylaxis. Subjective ROS Limited/Unobtainable: No Constitutional: Reports: no symptoms Allergies: Coded Allergies: PENICILLINS (Unverified Allergy, Mild, 12/05/18) PHENYTOIN (Verified Allergy, Unknown, 10/17/18) Uncoded Allergies: PENICILLIN (Allergy, Mild, 11/17/18) Objective Last 24 Hour Vital Signs Date Time Temp Pulse Resp B/P (MAP) Pulse Ox O2 Delivery O2 Flow Rate FiO2 12/07/18 08:00 Nasal Cannula 2.0 12/07/18 08:00 97.9 68 25 118/67 (84) 92 12/07/18 08:00 2.0 12/07/18 07:55 Nasal Cannula 3.0 32 12/07/18 07:55 95 Nasal Cannula 3.0 32 12/07/18 04:00 97.9 72 24 110/60 (77) 92 12/07/18 04:00 2.0 12/07/18 04:00 Nasal Cannula 2.0 12/07/18 04:00 70 12/07/18 00:00 97.7 60 18 105/55 (72) 95 12/07/18 00:00 65 12/07/18 00:00 Nasal Cannula 2.0 12/06/18 20:00 97.7 63 20 114/60 (78) 95 12/06/18 20:00 64 12/06/18 20:00 Nasal Cannula 2.0 12/06/18 20:00 4.0 12/06/18 19:13 97 Nasal Cannula 3.0 32 12/06/18 19:13 Nasal Cannula 3.0 32 12/06/18 16:00 4.0 12/06/18 16:00 Bi-pap 12/06/18 16:00 97.2 66 22 124/77 (93) 98 12/06/18 15:10 66 12/06/18 14:46 108/66 12/06/18 13:00 Nasal Cannula 2.0 12/06/18 12:00 98.1 68 22 123/64 (83) 98 12/06/18 12:00 4.0 12/06/18 12:00 Bi-pap 12/06/18 12:00 63 Intake and Output 12/06/18 12/07/18 19:00 07:00 Intake Total 210 ml Output Total 2010 ml Balance -2010 ml 210 ml Free Water 60 ml Tube Feeding 150 ml Output Urine Total 10 ml Hemodialysis UF 2000 ml # Bowel Movements 1 General Appearance: cachetic HEENT: normocephalic, atraumatic Respiratory/Chest: chest wall non-tender, lungs clear Cardiovascular: normal peripheral pulses, normal rate Abdomen: normal bowel sounds, soft, non tender Genitourinary: normal external genitalia Neurologic/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: 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 normal Microbiology Date/Time Source Procedure Growth Status 12/05/18 01:43 Blood Blood Culture - Preliminary NO GROWTH AFTER 24 HOURS Resulted 12/05/18 01:28 Blood Blood Culture - Preliminary NO GROWTH AFTER 24 HOURS Resulted 12/04/18 19:30 Blood Blood Culture - Preliminary NO GROWTH AFTER 48 HOURS Resulted 12/04/18 19:15 Blood Blood Culture - Preliminary NO GROWTH AFTER 48 HOURS Resulted 12/05/18 15:00 Sputum Gram Stain - Final Resulted 12/05/18 15:00 Sputum Culture - Preliminary Staphylococcus Aureus Cynthia Albicans Resulted 12/04/18 20:55 Nasal Nares MRSA Culture - Final Staphylococcus Aureus - Mrsa Complete 12/04/18 20:00 Nasal Nares Influenza Types A,B Antigen (SUHAIL) - Final Complete 12/05/18 11:30 Urine,Clean Catch Urine Culture - Final Escherichia Coli - Esbl Complete 12/04/18 20:00 Urine,Clean Catch Urine Culture - Final Escherichia Coli - Esbl Complete 12/04/18 20:55 Rectum VRE Culture - Final Enterococcus Faecium - Vre Complete 12/04/18 20:55 Rectum Received Laboratory Tests 12/06/18 18:30: Stool Occult Blood [Pending] Current Medications Medications (Trade) Dose Ordered Sig/Ronald Route PRN Reason Start Time Stop Time Status Last Admin Dose Admin Acetaminophen/ Hydrocodone Bitart (Maybee 5/325) 1 tab Q4H PRN ORAL For Severe Pain 12/05/18 10:00 12/12/18 09:57 Aspirin (Ecotrin) 81 mg DAILY ORAL 12/06/18 09:00 01/05/19 08:59 12/07/18 08:36 Dextrose (Dextrose 50%) 25 ml Q30M PRN IV Hypoglycemia 12/04/18 22:45 01/03/19 22:44 Dextrose (Dextrose 50%) 50 ml Q30M PRN IV Hypoglycemia 12/04/18 22:45 01/03/19 22:44 12/07/18 06:21 Docusate Sodium (Colace) 200 mg DAILY ORAL 12/06/18 09:00 01/05/19 08:59 12/07/18 08:36 Duloxetine HCl (Cymbalta) 20 mg DAILY ORAL 12/06/18 09:00 01/05/19 08:59 12/07/18 08:36 Heparin Sodium (Porcine) (Heparin 5000 units/ml) 5,000 units EVERY 12 HOURS SUBQ 12/05/18 09:00 01/04/19 08:59 12/07/18 08:38 Iopamidol (Isovue-370 150ml) 150 ml NOW PRN INJ Radiology Procedure 12/06/18 17:00 12/08/18 16:48 Iopamidol (Isovue-370 150ml) 150 ml NOW PRN INJ Radiology Procedure 12/06/18 17:00 12/08/18 16:48 Meropenem 500 mg/ Sodium Chloride 55 ml @ 110 mls/hr Q24H IVPB 12/05/18 21:00 12/10/18 20:59 12/06/18 20:32 Nitroglycerin (Ntg) 1 patch Q24H TDERMAL 12/05/18 13:00 01/04/19 12:59 12/06/18 14:46 Pantoprazole (Protonix) 40 mg EVERY 12 HOURS ORAL 12/05/18 21:00 01/04/19 20:59 12/07/18 08:35 Povidone Iodine (Betadine María) 1 applic QHS TOPIC 12/06/18 21:00 01/05/19 20:59 Pyridoxine HCl (Vitamin B6) 25 mg DAILY ORAL 12/06/18 09:00 01/05/19 08:59 12/07/18 08:35 Sevelamer Carbonate (Renvela) 800 mg THREE TIMES A DAY ORAL 12/05/18 13:00 01/04/19 12:59 12/07/18 08:36 Tramadol HCl (Ultram) 50 mg Q6H PRN ORAL For Mod Pain 12/05/18 09:59 12/12/18 09:58 Vitamin B Complex/ Vit C/Folic Acid (Nephrovite) 1 tab DAILY ORAL 12/06/18 09:00 01/05/19 08:59 12/07/18 08:36 Tamia Lerma MD Dec 07, 2018 10:01
[2018-12-07 10:55] LABS: HEMATOCRIT 24.9 % (42.0-52.0); HEMOGLOBIN 7.6 G/DL (14.2-18.0); MEAN CORPUSCULAR VOLUME 106 FL (80-99); PLATELET COUNT 230 K/UL (150-450); RED BLOOD COUNT 2.36 M/UL (4.70-6.10); RED CELL DISTRIBUTION WIDTH 19.4 % (11.6-14.8)
[2018-12-07 11:05] LABS: INR 1.3 (0.9-1.1)
--- NOTE | 2018-12-07 11:13 | Surgery Progress Note ---
Surgery Progress Note Subjective Additional Comments Patient seen and examined at bedside. Afebrile, hemodynamically stable, leukocytosis, and anemia. Pending results of MRI and CT scan. Objective Last 24 Hour Vital Signs Date Time Temp Pulse Resp B/P (MAP) Pulse Ox O2 Delivery O2 Flow Rate FiO2 12/07/18 08:00 Nasal Cannula 2.0 12/07/18 08:00 97.9 68 25 118/67 (84) 92 12/07/18 08:00 2.0 12/07/18 07:55 Nasal Cannula 3.0 32 12/07/18 07:55 95 Nasal Cannula 3.0 32 12/07/18 04:00 97.9 72 24 110/60 (77) 92 12/07/18 04:00 2.0 12/07/18 04:00 Nasal Cannula 2.0 12/07/18 04:00 70 12/07/18 00:00 97.7 60 18 105/55 (72) 95 12/07/18 00:00 65 12/07/18 00:00 Nasal Cannula 2.0 12/06/18 20:00 97.7 63 20 114/60 (78) 95 12/06/18 20:00 64 12/06/18 20:00 Nasal Cannula 2.0 12/06/18 20:00 4.0 12/06/18 19:13 97 Nasal Cannula 3.0 32 12/06/18 19:13 Nasal Cannula 3.0 32 12/06/18 16:00 4.0 12/06/18 16:00 Bi-pap 12/06/18 16:00 97.2 66 22 124/77 (93) 98 12/06/18 15:10 66 12/06/18 14:46 108/66 12/06/18 13:00 Nasal Cannula 2.0 12/06/18 12:00 98.1 68 22 123/64 (83) 98 12/06/18 12:00 4.0 12/06/18 12:00 Bi-pap 12/06/18 12:00 63 I&O Intake and Output 12/06/18 12/07/18 19:00 07:00 Intake Total 210 ml Output Total 2010 ml Balance -2010 ml 210 ml Free Water 60 ml Tube Feeding 150 ml Output Urine Total 10 ml Hemodialysis UF 2000 ml # Bowel Movements 1 Dressing: saturated Wound: other Cardiovascular: RSR Respiratory: clear Abdomen: soft, present bowel sounds, non-distended Extremities: edema, cyanosis, other Laboratory Tests Test 12/06/18 18:30 12/07/18 10:35 Stool Occult Blood Positive (NEGATIVE) White Blood Count 24.0 K/UL (4.8-10.8) *H Red Blood Count 2.36 M/UL (4.70-6.10) L Hemoglobin 7.6 G/DL (14.2-18.0) L Hematocrit 24.9 % (42.0-52.0) L Mean Corpuscular Volume 106 FL (80-99) H Mean Corpuscular Hemoglobin 32.2 PG (27.0-31.0) H Mean Corpuscular Hemoglobin Concent 30.5 G/DL (32.0-36.0) L Red Cell Distribution Width 19.4 % (11.6-14.8) H Platelet Count 230 K/UL (150-450) Mean Platelet Volume 9.6 FL (6.5-10.1) Neutrophils (%) (Auto) % (45.0-75.0) Lymphocytes (%) (Auto) % (20.0-45.0) Monocytes (%) (Auto) % (1.0-10.0) Eosinophils (%) (Auto) % (0.0-3.0) Basophils (%) (Auto) % (0.0-2.0) Neutrophils % (Manual) Pending Lymphocytes % (Manual) Pending Platelet Estimate Pending Platelet Morphology Pending Erythrocyte Sedimentation Rate Pending Reticulocyte Count Pending Prothrombin Time 13.6 SEC (9.30-11.50) H Prothromb Time International Ratio 1.3 (0.9-1.1) H Activated Partial Thromboplast Time 35 SEC (23-33) H Sodium Level Pending Potassium Level Pending Chloride Level Pending Carbon Dioxide Level Pending Blood Urea Nitrogen Pending Creatinine Pending Estimat Glomerular Filtration Rate Pending Glucose Level Pending Uric Acid Pending Calcium Level Pending Phosphorus Level Pending Magnesium Level Pending Iron Level Pending Unsaturated Iron Binding Pending Total Bilirubin Pending Aspartate Amino Transf (AST/SGOT) Pending Alanine Aminotransferase (ALT/SGPT) Pending Alkaline Phosphatase Pending Lactate Dehydrogenase Pending Troponin I Pending Pro-B-Type Natriuretic Peptide Pending Total Protein Pending Albumin Pending Globulin Pending Carcinoembryonic Antigen Pending Plan Problems: (1) Sepsis Assessment & Plan: Patient presented on admission with necrotic wounds distal Right lower extremity and R foot -dorsal,lateral and medial aspects. R 3rd metatarsal is black. Chronic ulcer R heel that is also necrotic. Wounds/foot malodorous. Small amount brown exudate noted from dorsal wound. Soft medial necrotic 3cm area noted with denuded bleeding tissue just anterior to it. soft tissue overall with soft edema. possible abscess underlying. skin blistering and sloth noted. Partial thickness Sacral pressure injury. Base of wound is moist -viable with dark brown borders. Periwound without induration or erythema (L)4cm x (W)5cm. Currently afebrile and hemodynamically stable. Patient continues to have a leukocytosis. Still pending imaging. Given the appearance of the leg and wound there is significant concern for potential need of amputation. Tx.Plan: MRI right foot and ankle ordered to evaluate for osteo and abscess CTA chest abdomen pelvis with runoff pending Arterial and venous duplex pending Appreciate vascular and Podiatry eval for limb salvage Wash foot daily, apply xeroform and abd, wrap with kerlix Apply Moisture Barrier Paste (Triad /Calazime )to sacrum. Cover with Optifoam drsg .Change every 3 days and prn. APM/JANELL mattress. Reposition at least Q 2hours or as tolerated. Off-Load R heel with pillow. (2) Hx of Damian Deutsch Dec 07, 2018 11:13
[2018-12-07 11:25] LABS: % IRON SATURATION 26 % (15-50); IRON 19 ug/dL (50-175); TOTAL IRON BINDING CAPACITY 72 ug/dL (250-450)
--- NOTE | 2018-12-07 11:27 | Diagnostic Imaging Report ---
Indication: Necrotic regions of the distal right lower extremity and right foot dorsal lateral medial aspects, chronic necrotic right heel ulcer Technique: Sagittal, coronal, and axial T1 FSE and FSE STIR images of the right forefoot Comparison: Reference made to foot radiograph dated 11/20/2018 Findings: First digit demonstrate equivocal slight increased STIR signal in the terminal tuft of the distal phalanx, without definite T1 signal abnormality. There is very questionable slightly increased STIR signal in the first metatarsal shaft, likewise without associated T1 signal abnormality. Second digit demonstrates definitely increased STIR signal within the distal phalanx, without evidence of T1 signal abnormality. The fourth digit demonstrates slight increased STIR signal within the distal phalanx, without evidence of T1 signal abnormality. There is questionably increased STIR signal within the middle and lateral cuneiforms, with equivocally decreased T1 signal abnormality. This appears more convincingly to represent a real abnormality on MRI of the ankle performed at the same time. No other marrow signal abnormality demonstrated. There is extensive edema of the subcutaneous fat of the talus, and of the subcutaneous fat and deep soft tissues of the forefoot. There is what may be a discrete fluid collection centrally on the plantar side, deep but adjacent to the extensor tendons, [id number] mm transverse by 7 mm craniocaudad by 28 mm AP . This is below the and lateral cuneiforms and third metatarsal base Impression: STIR signal abnormalities of the second and fourth distal phalanges, questionably of the first distal phalanx and first metatarsal shaft, without corresponding T2 signal abnormality. This is a nonspecific finding, could represent reactive change due to surrounding cellulitis versus very early acute osteomyelitis. Suspect osteomyelitis of the middle and lateral cuneiforms, more convincingly demonstrated on separate ankle MRI-please refer to that report Diffuse edema of the subcutaneous fat and deep soft tissues. This may be due to cellulitis, versus edema of hemodynamic origin. Suspect 15 x 7 x 28 mm focal fluid collection in the deep plantar foot below the lateral cuneiform and third metatarsal base and immediately adjacent to the central flexor tendons. This could represent a small abscess
[2018-12-07 11:28] LABS: ALANINE AMINOTRANSFERASE 10 U/L (12-78); ALBUMIN 1.8 G/DL (3.4-5.0); ALBUMIN/GLOBULIN RATIO 0.3 (1.0-2.7); ALKALINE PHOSPHATASE 173 U/L (46-116); ANION GAP 7 mmol/L (5-15); ASPARTATE AMINO TRANSFERASE 26 U/L (15-37); BILIRUBIN,TOTAL 3.3 MG/DL (0.2-1.0); BLOOD UREA NITROGEN 49 mg/dL (7-18); CALCIUM 8.9 MG/DL (8.5-10.1); CARBON DIOXIDE 27 MMOL/L (21-32); CHLORIDE 101 MMOL/L (98-107); CREATININE 3.7 MG/DL (0.55-1.30); POTASSIUM 4.6 MMOL/L (3.5-5.1); SODIUM 135 MMOL/L (136-145)
--- NOTE | 2018-12-07 11:35 | Diagnostic Imaging Report ---
Indication: Necrotic heel wound with infection Technique: Axial, sagittal, and coronal T1 FSE and FSE STIR images of the ankle and hindfoot Comparison: Foot radiograph dated 11/20/2018 Findings: There is marrow edema within the posterior calcaneus, which demonstrates increased STIR and decreased T1 signal. The T1 signal abnormality is actually more striking. There is patchy increased STIR and decreased T1 signal throughout much of the talus, particularly posteriorly. There is increased STIR signal without evident T1 signal abnormality within the distal fibula. Subtle increased STIR and decreased T1 signal are seen within the middle and lateral cuneiforms. Normal marrow signal is seen within the navicular, cuboid, and the medial cuneiform. There is extensive edema of the subcutaneous and deep fat. There is what may be a discrete fluid collection posterior to the ankle and surrounding the Achilles tendon. This measures 3.5 cm transverse by 2 cm AP by 6.7 cm craniocaudad. Distally, this wraps around the posterior medial calcaneus. What may be discrete fluid also is seen wrapping around the medial ankle, predominantly around the medial malleolus but also extending inferior to it. This measures 4.7 cm AP by approximately 1 cm thick and extends cephalad beyond the image plane. Similar collection is seen in the lateral ankle, predominantly anterior to the medial malleolus and lateral to the calcaneus. This measures approximately 9 cm AP by 1.1 cm transverse by 9.1 cm craniocaudad. These collections may represent areas of very edematous phlegmon, versus abscesses, the posterior collection being the most suspicious for abscess. Also demonstrated is the deep midfoot collection described on separate forefoot MRI report There is marked thinning of the subcutaneous fat with suggestion of ulceration in the region of the calcaneal tuberosity. The distal Achilles tendon may be exposed. Impression: Marrow edema, suspicious for osteomyelitis, involving the posterior calcaneus, talus, middle and lateral cuneiforms Multiple fluid collections versus very edematous phlegmon, as described. These could represent abscesses Evidence of heel ulceration and marked thinning of the skin, consistent with stated clinical history of ulceration and necrotic wound
[2018-12-07 11:38] LABS: BILIRUBIN,DIRECT 2.8 MG/DL (0.0-0.3)
[2018-12-07 11:40] LABS: PHOSPHORUS 4.9 MG/DL (2.5-4.9)
--- NOTE | 2018-12-07 11:41 | Diagnostic Imaging Report ---
Indication: Post nasogastric tube placement Technique: Supine view of the abdomen Comparison: none Findings: There is a nasogastric tube in place, tip projecting at the level gastric body, proximal port beyond the gastroesophageal junction. Visualized bowel gas demonstrates prominent small bowel. Impression: Satisfactory nasogastric intubation This agrees with the preliminary interpretation provided overnight by [facility] teleradiology service.
--- NOTE | 2018-12-07 11:47 | NUR ---
Social Work This SW made attempts to contact sister, Lucretia in [place] (through [employer]); no answer at this time. Sw to follow with locating sister, as able.
[2018-12-07 11:48] LABS: LACTATE DEHYDROGENASE 201 U/L (81-234)
--- NOTE | 2018-12-07 11:57 | NUR ---
ST / SWALLOW THERAPY NOTE: SWALLOW STATUS: BASELINE FUNCTIONAL ORAL INTAKE SCALE LEVEL 1 STILL TUBE DEP AND NO ORAL INTAKE UNTIL MOD BARIUM SWALLOW STUDY (GOAL IS LEVEL 2) BASELINE FOR DYSPHAGIA OUTCOME SEVERITY SCALE LEVEL 1 SEVERE DYSPHAGIA NPO UNABLE TO TOLERATE PO SAFELY OR BETTER (PENDING MOD BARIUM SWALLOW STUDY RESULTS) PATIENT ALERT AND ABLE TO PHONATE WITH BREATHY HOARSE VOICE. ? ENT CONSULT LATER IF NO IMPROVEMENT. LIKELY ALSO HAS POOR BREATH SUPPORT/CONTROL. NO NEED FOR ORAL SUCTION AND HAS SMALL NGT. GOALS NOT MET FOR INTAKE YET. GOALS MET FOR RN KIRA EDUCATED IN ORAL CARE AND ASP PREC WITH NGT. WILL HOLD ON MOD BARIUM SWALLOW STUDY AT THIS TIME DUE TO SCHEDULE CONFLICTS BUT RN STATES HE IS STABLE TO GO DOWN FOR STUDY NOW. SPEECH STATUS: PER RN AND MD PATIENT ABLE TO SAY SINGLE WORDS AND SHORT PHRASES IN SOFT VOICE. PATIENT DOES NOT INITIATE TO EXPRESS BASIC NEEDS. PLAN: CONTINUE WITH NONORAL FEEDINGS AND ORAL CARE FOR NOW CONTINUE WITH DYSPHAGIA MANAGEMENT AND TX AT THIS TIME (SEE SWALLOW EVAL REPORT FOR SPECIFICS) ASSESS SPEECH/VOICE FORMALLY ON MONDAY.
[2018-12-07 12:00] VITALS: BP 122/72
--- NOTE | 2018-12-07 12:12 | Consultation ---
History of Present Illness General Date patient seen: Dec 06, 2018 Time patient seen: 17:55 Chief Complaint: Generalized Weakness Reason for Consultation: R Ankle infection Present Illness Allergies: Coded Allergies: PENICILLINS (Unverified Allergy, Mild, 12/05/18) PHENYTOIN (Verified Allergy, Unknown, 10/17/18) Uncoded Allergies: PENICILLIN (Allergy, Mild, 11/17/18) Medication History Scheduled Amlodipine Besylate* (Amlodipine Besylate*), 10 MG ORAL DAILY, (Reported) Aspirin Ec* (Aspirin Ec*), 81 MG ORAL DAILY, (Reported) Atenolol* (Tenormin*), 50 MG ORAL TWICE A DAY, (Reported) Docusate Sodium* (Docusate Sodium*), 200 MG ORAL DAILY, (Reported) Duloxetine (Cymbalta), 20 MG ORAL DAILY, (Reported) Levofloxacin* (Levaquin*), 250 MG ORAL DAILY Metronidazole* (Flagyl*), 500 MG ORAL EVERY 8 HOURS Pyridoxine Hcl* (Vitamin B-6*), 25 MG ORAL DAILY, (Reported) Sevelamer Carbonate* (Renvela*), 800 MG ORAL THREE TIMES A DAY, (Reported) Vitamin B Cmplx/Vit C/Folic AC (Nephro-Trent Tablet), 1 TAB ORAL DAILY, (Reported ) Scheduled PRN Hydrocodone Bit/Acetaminophen 5-325* ([place] 5-325*), 1 TAB ORAL Q4H PRN for For Pain, (Reported) Tramadol Hcl* (Ultram*), 50 MG ORAL Q6H PRN for For Pain, (Reported) Miscellaneous Medications Insulin Lispro (Humalog), 0 SUBQ, (Reported) Linagliptin (Tradjenta), 5 MG PO, (Reported) Methoxy Peg-Epoetin Beta (Mircera), 100 MCG IJ, (Reported) [lipovitan], (Reported) Patient History Healthcare decision maker N Resuscitation status Full Code Advanced Directive on File Physical Exam Last 24 Hour Vital Signs Date Time Temp Pulse Resp B/P (MAP) Pulse Ox O2 Delivery O2 Flow Rate FiO2 12/07/18 08:00 Nasal Cannula 2.0 12/07/18 08:00 97.9 68 25 118/67 (84) 92 12/07/18 08:00 2.0 12/07/18 07:55 Nasal Cannula 3.0 32 12/07/18 07:55 95 Nasal Cannula 3.0 32 12/07/18 04:00 97.9 72 24 110/60 (77) 92 12/07/18 04:00 2.0 12/07/18 04:00 Nasal Cannula 2.0 12/07/18 04:00 70 12/07/18 00:00 97.7 60 18 105/55 (72) 95 12/07/18 00:00 65 12/07/18 00:00 Nasal Cannula 2.0 12/06/18 20:00 97.7 63 20 114/60 (78) 95 12/06/18 20:00 64 12/06/18 20:00 Nasal Cannula 2.0 12/06/18 20:00 4.0 12/06/18 19:13 97 Nasal Cannula 3.0 32 12/06/18 19:13 Nasal Cannula 3.0 32 12/06/18 16:00 4.0 12/06/18 16:00 Bi-pap 12/06/18 16:00 97.2 66 22 124/77 (93) 98 12/06/18 15:10 66 12/06/18 14:46 108/66 12/06/18 13:00 Nasal Cannula 2.0 Intake and Output 12/06/18 12/07/18 19:00 07:00 Intake Total 210 ml Output Total 2010 ml Balance -2010 ml 210 ml Free Water 60 ml Tube Feeding 150 ml Output Urine Total 10 ml Hemodialysis UF 2000 ml # Bowel Movements 1 Laboratory Tests Test 12/06/18 18:30 12/07/18 10:35 Stool Occult Blood Positive (NEGATIVE) White Blood Count 24.0 K/UL (4.8-10.8) *H Red Blood Count 2.36 M/UL (4.70-6.10) L Hemoglobin 7.6 G/DL (14.2-18.0) L Hematocrit 24.9 % (42.0-52.0) L Mean Corpuscular Volume 106 FL (80-99) H Mean Corpuscular Hemoglobin 32.2 PG (27.0-31.0) H Mean Corpuscular Hemoglobin Concent 30.5 G/DL (32.0-36.0) L Red Cell Distribution Width 19.4 % (11.6-14.8) H Platelet Count 230 K/UL (150-450) Mean Platelet Volume 9.6 FL (6.5-10.1) Neutrophils (%) (Auto) % (45.0-75.0) Lymphocytes (%) (Auto) % (20.0-45.0) Monocytes (%) (Auto) % (1.0-10.0) Eosinophils (%) (Auto) % (0.0-3.0) Basophils (%) (Auto) % (0.0-2.0) Differential Total Cells Counted 100 Neutrophils % (Manual) 81 % (45-75) H Lymphocytes % (Manual) 3 % (20-45) L Monocytes % (Manual) 5 % (1-10) Eosinophils % (Manual) 0 % (0-3) Basophils % (Manual) 0 % (0-2) Band Neutrophils 11 % (0-8) H Platelet Estimate Adequate Platelet Morphology Normal Hypochromasia 3+ Anisocytosis 2+ Macrocytosis 2+ Target Cells 3+ Erythrocyte Sedimentation Rate 98 MM/HR (0-20) H Reticulocyte Count Pending Prothrombin Time 13.6 SEC (9.30-11.50) H Prothromb Time International Ratio 1.3 (0.9-1.1) H Activated Partial Thromboplast Time 35 SEC (23-33) H Sodium Level 135 MMOL/L (136-145) L Potassium Level 4.6 MMOL/L (3.5-5.1) Chloride Level 101 MMOL/L (98-107) Carbon Dioxide Level 27 MMOL/L (21-32) Anion Gap 7 mmol/L (5-15) Blood Urea Nitrogen 49 mg/dL (7-18) H Creatinine 3.7 MG/DL (0.55-1.30) H Estimat Glomerular Filtration Rate 16.5 mL/min (>60) Glucose Level 67 MG/DL (74-106) L Uric Acid 5.1 MG/DL (2.6-7.2) Calcium Level 8.9 MG/DL (8.5-10.1) Phosphorus Level 4.9 MG/DL (2.5-4.9) Magnesium Level 2.1 MG/DL (1.8-2.4) Iron Level 19 ug/dL (50-175) L Total Iron Binding Capacity 72 ug/dL (250-450) L Percent Iron Saturation 26 % (15-50) Unsaturated Iron Binding 53 ug/dL (112-346) L Total Bilirubin 3.3 MG/DL (0.2-1.0) H Direct Bilirubin 2.8 MG/DL (0.0-0.3) H Aspartate Amino Transf (AST/SGOT) 26 U/L (15-37) Alanine Aminotransferase (ALT/SGPT) 10 U/L (12-78) L Alkaline Phosphatase 173 U/L (46-116) H Lactate Dehydrogenase 201 U/L (81-234) Troponin I 0.062 ng/mL (0.000-0.056) Pro-B-Type Natriuretic Peptide > 68685 pg/mL (0-125) H Total Protein 7.2 G/DL (6.4-8.2) Albumin 1.8 G/DL (3.4-5.0) L Globulin 5.4 g/dL Albumin/Globulin Ratio 0.3 (1.0-2.7) L Carcinoembryonic Antigen Pending Height (Feet): 5 Height (Inches): 4.00 Weight (Pounds): 135 Medications Current Medications Medications (Trade) Dose Ordered Sig/Ronald Route PRN Reason Start Time Stop Time Status Last Admin Dose Admin Acetaminophen/ Hydrocodone Bitart ([place] 5/325) 1 tab Q4H PRN ORAL For Severe Pain 12/05/18 10:00 12/12/18 09:57 Aspirin (Ecotrin) 81 mg DAILY ORAL 12/06/18 09:00 01/05/19 08:59 12/07/18 08:36 Dextrose (Dextrose 50%) 25 ml Q30M PRN IV Hypoglycemia 12/04/18 22:45 01/03/19 22:44 Dextrose (Dextrose 50%) 50 ml Q30M PRN IV Hypoglycemia 12/04/18 22:45 01/03/19 22:44 12/07/18 06:21 Docusate Sodium (Colace) 200 mg DAILY ORAL 12/06/18 09:00 01/05/19 08:59 12/07/18 08:36 Duloxetine HCl (Cymbalta) 20 mg DAILY ORAL 12/06/18 09:00 01/05/19 08:59 12/07/18 08:36 Heparin Sodium (Porcine) (Heparin 5000 units/ml) 5,000 units EVERY 12 HOURS SUBQ 12/05/18 09:00 01/04/19 08:59 12/07/18 08:38 Iopamidol (Isovue-370 150ml) 150 ml NOW PRN INJ Radiology Procedure 12/06/18 17:00 12/08/18 16:48 Iopamidol (Isovue-370 150ml) 150 ml NOW PRN INJ Radiology Procedure 12/06/18 17:00 12/08/18 16:48 Meropenem 500 mg/ Sodium Chloride 55 ml @ 110 mls/hr Q24H IVPB 12/05/18 21:00 12/10/18 20:59 12/06/18 20:32 Nitroglycerin (Ntg) 1 patch Q24H TDERMAL 12/05/18 13:00 01/04/19 12:59 12/06/18 14:46 Pantoprazole (Protonix) 40 mg EVERY 12 HOURS ORAL 12/05/18 21:00 01/04/19 20:59 12/07/18 08:35 Povidone Iodine (Betadine María) 1 applic QHS TOPIC 12/06/18 21:00 01/05/19 20:59 Pyridoxine HCl (Vitamin B6) 25 mg DAILY ORAL 12/06/18 09:00 01/05/19 08:59 12/07/18 08:35 Sevelamer Carbonate (Renvela) 800 mg THREE TIMES A DAY ORAL 12/05/18 13:00 01/04/19 12:59 12/07/18 08:36 Tramadol HCl (Ultram) 50 mg Q6H PRN ORAL For Mod Pain 12/05/18 09:59 12/12/18 09:58 Vitamin B Complex/ Vit C/Folic Acid (Nephrovite) 1 tab DAILY ORAL 12/06/18 09:00 01/05/19 08:59 12/07/18 08:36 Objective Narrative Focused RLE: - Right Ankle: extensive necrotic tissue is noted anterior lateral ankle extending to RF, anterior medial ankle also noted to have necrotic tissue. (+) malodor, increased edema, erythema and temp differential. - Right foot: posterior heel ulceration, approx 3.0 cm x 3.0 cm , wound base noted to sub Q, (-) active purulent drainage. Assessment/Plan Assessment/Plan A: Right ankle infected necrotic tissue, wet gangrene HTN COPD CHF ESRD L AKA P: - Pt seen and evaluated. - Discuss findings with patient. - labs and chart reviewed. - WBC 28 upon DOA, trending down 21 - Cont IV ABx per ID. - MRI RLE official report reveals, " marrow edema, suspicious for osteomyelitis , involving the posterior calcaneus, talus, middle and lateral cueniforms, " - MRI official report also notes multiple fluid collections most likely secondary to deep abscesses. - Pt pending CTA per [facility], will await [facility] recs. - Cardiology, GI, Pulmonary on board, - Pt has extensive necrotic tissue infection noted to R ankle, based on MRI official report, and clinical findings which demonstrate patient does not have extensive viable soft tissue for flap coverage if require amputation of TMA, [place]. BKA is warranted. - Podiatry will cont to monitor. Tony Hooker DPM Dec 07, 2018 12:12
[2018-12-07] MEDS: Nitroglycerin Patch 0.4mg TDERMAL SCH (13:03)
--- NOTE | 2018-12-07 14:07 | Nephrology Progress Note ---
Assessment/Plan Problem List: (1) ESRF (end stage renal failure) (2) Leukocytosis Assessment: sepsis (3) CHF (congestive heart failure) (4) Acute respiratory failure (5) Hyperbilirubinemia Assessment admitted with sepsis and shortness of breath (1) ESRD (end stage renal disease) right arm fistula (2) Possible Fluid overload, unspecified (3) h/o Bradycardia (4) Anemia (5) h/o Pleural effusion (6) Elevated troponin (7) Allergy Dialntin & PCN (8) Elevated Bili Plan was on bipap , now is on O2 cannula HD and UF done 12/06 next 12/08 adjust BP meds 2D Echo 55% EjFx stop beta blockers for low HR hydralazin and procardia as needed reviewe CXR : Pneumonia per consultants Subjective ROS Limited/Unobtainable: No Constitutional: Reports: malaise, weakness Objective Objective Last 24 Hour Vital Signs Date Time Temp Pulse Resp B/P (MAP) Pulse Ox O2 Delivery O2 Flow Rate FiO2 12/07/18 13:03 122/72 12/07/18 12:00 98.6 71 18 122/72 (89) 96 12/07/18 12:00 4.0 12/07/18 12:00 Nasal Cannula 2.0 12/07/18 12:00 69 12/07/18 08:00 68 12/07/18 08:00 Nasal Cannula 2.0 12/07/18 08:00 97.9 68 25 118/67 (84) 92 12/07/18 08:00 2.0 12/07/18 07:55 Nasal Cannula 3.0 32 12/07/18 07:55 95 Nasal Cannula 3.0 32 12/07/18 04:00 97.9 72 24 110/60 (77) 92 12/07/18 04:00 2.0 12/07/18 04:00 Nasal Cannula 2.0 12/07/18 04:00 70 12/07/18 00:00 97.7 60 18 105/55 (72) 95 12/07/18 00:00 65 12/07/18 00:00 Nasal Cannula 2.0 12/06/18 20:00 97.7 63 20 114/60 (78) 95 12/06/18 20:00 64 12/06/18 20:00 Nasal Cannula 2.0 12/06/18 20:00 4.0 12/06/18 19:13 97 Nasal Cannula 3.0 32 12/06/18 19:13 Nasal Cannula 3.0 32 12/06/18 16:00 4.0 12/06/18 16:00 Bi-pap 12/06/18 16:00 97.2 66 22 124/77 (93) 98 12/06/18 15:10 66 12/06/18 14:46 108/66 Intake and Output 12/06/18 12/07/18 19:00 07:00 Intake Total 230 ml Output Total 2010 ml Balance -2009 ml 230 ml Free Water 60 ml Tube Feeding 170 ml Output Urine Total 10 ml Hemodialysis UF 2000 ml # Bowel Movements 1 Laboratory Tests 12/06/18 18:30: Stool Occult Blood Positive 12/07/18 10:35: White Blood Count 24.0*H, Red Blood Count 2.36L, Hemoglobin 7.6L, Hematocrit 24.9L, Mean Corpuscular Volume 106H, Mean Corpuscular Hemoglobin 32.2H, Mean Corpuscular Hemoglobin Concent 30.5L, Red Cell Distribution Width 19.4H, Platelet Count 230, Mean Platelet Volume 9.6, Neutrophils (%) (Auto) , Lymphocytes (%) (Auto) , Monocytes (%) (Auto) , Eosinophils (%) (Auto) , Basophils (%) (Auto) , Differential Total Cells Counted 100, Neutrophils % ( Manual) 81H, Lymphocytes % (Manual) 3L, Monocytes % (Manual) 5, Eosinophils % ( Manual) 0, Basophils % (Manual) 0, Band Neutrophils 11H, Platelet Estimate Adequate, Platelet Morphology Normal, Hypochromasia 3+, Anisocytosis 2+, Macrocytosis 2+, Target Cells 3+, Erythrocyte Sedimentation Rate 98H, Reticulocyte Count 3.9H, Prothrombin Time 13.6H, Prothromb Time International Ratio 1.3H, Activated Partial Thromboplast Time 35H, Sodium Level 135L, Potassium Level 4.6, Chloride Level 101, Carbon Dioxide Level 27, Anion Gap 7, Blood Urea Nitrogen 49H, Creatinine 3.7H, Estimat Glomerular Filtration Rate 16.5, Glucose Level 67L, Uric Acid 5.1, Calcium Level 8.9, Phosphorus Level 4.9 , Magnesium Level 2.1, Iron Level 19L, Total Iron Binding Capacity 72L, Percent Iron Saturation 26, Unsaturated Iron Binding 53L, Total Bilirubin 3.3H, Direct Bilirubin 2.8H, Aspartate Amino Transf (AST/SGOT) 26, Alanine Aminotransferase ( ALT/SGPT) 10L, Alkaline Phosphatase 173H, Lactate Dehydrogenase 201, Troponin I 0.062H, Pro-B-Type Natriuretic Peptide > 13019M, Total Protein 7.2, Albumin 1.8L , Globulin 5.4, Albumin/Globulin Ratio 0.3L, Carcinoembryonic Antigen [Pending] Height (Feet): 5 Height (Inches): 4.00 Weight (Pounds): 135 General Appearance: no apparent distress Cardiovascular: normal rate Respiratory/Chest: decreased breath sounds Abdomen: distended Alessandro Price MD Dec 07, 2018 14:07
--- NOTE | 2018-12-07 14:47 | NUR ---
NURSE NOTES: SPOKE WITH DR COHEN, ORDERED TO REMOVE GATICA. PATIENT NOTED ON 02 SAT AT 88%. PLACED PATIENT ON VENTURI 40%. WILL CONTINUE TO MONITOR. .
--- NOTE | 2018-12-07 15:16 | NUR ---
NURSE NOTES: SPOKE WITH [facility] SCHEDULED DIALYSIS. CONFIRMED WITH ASIF FROM [facility], CLARIFIED THE DATE WITH DR COHEN AND CHANGED FOR 12/08. NO SIGN SOF DISTRESS. WILL CONTINUE TO MONITOR.
[2018-12-07 16:00] VITALS: BP 103/46
--- NOTE | 2018-12-07 17:02 | Infectious Diseases Prog Note ---
Assessment/Plan Assessment/Plan ASSESSMENT AND PLAN: 1. right ankle/foot/leg infected wound/gangrene/necrosis/?ischemia/osteomyelitis , sepsis, esbl e.coli uti, staph aureus pna, leukocytosis - vancomycin and meropenem - monitor labs and chest x-ray - f/u on CT angio - surgery, podiatry and vascular surgery f/u - may need amputation - d/w surgery 2. The patient has end-stage renal disease on hemodialysis. He has a shunt. No hemodialysis line. 3. History of UTI. 4. Anemia. 5. Elevated creatinine. 6. Renal failure. 7. The patient has history of diabetes. 8. Hypertension. 9. COPD. 10. CHF. 11. Hypertension and diabetes treatment per primary. 12. Allergies to penicillin and phenytoin, tolerates meropenem. 13. Social history is negative for smoking, alcohol, or drug abuse. 14. Family history is noncontributory. 15. MAR was noted. 16. Case discussed with RN. 17. Continue treatment per primary consultants. 18. Case communicated with Dr. Frieda Clay. 19. Orders were noted and entered. 20. Continue treatment per primary consultants. 21. mrsa and vre colonization Subjective Constitutional: Reports: fatigue; Denies: fever HEENT: Reports: congestion - mild Respiratory: Reports: shortness of breath - mild Cardiovascular: Denies: chest pain Gastrointestinal/Abdominal: Denies: nausea, vomiting, diarrhea Genitourinary: Reports: other - no negro Neurologic: Denies: headache Psychiatric: Reports: other - na Skin: Denies: rash Hematologic: Denies: bleeding Musculoskeletal: Denies: pain Allergies: Coded Allergies: PENICILLINS (Unverified Allergy, Mild, 12/05/18) PHENYTOIN (Verified Allergy, Unknown, 10/17/18) Uncoded Allergies: PENICILLIN (Allergy, Mild, 11/17/18) Objective Vital Signs Last 24 Hour Vital Signs Date Time Temp Pulse Resp B/P (MAP) Pulse Ox O2 Delivery O2 Flow Rate FiO2 12/07/18 16:00 Nasal Cannula 2.0 12/07/18 16:00 98.0 67 19 103/46 (65) 96 12/07/18 16:00 68 12/07/18 16:00 8.0 40 12/07/18 13:03 122/72 12/07/18 12:00 98.6 71 18 122/72 (89) 96 12/07/18 12:00 4.0 12/07/18 12:00 Nasal Cannula 2.0 12/07/18 12:00 69 12/07/18 08:00 68 12/07/18 08:00 Nasal Cannula 2.0 12/07/18 08:00 97.9 68 25 118/67 (84) 92 12/07/18 08:00 2.0 12/07/18 07:55 Nasal Cannula 3.0 32 12/07/18 07:55 95 Nasal Cannula 3.0 32 12/07/18 04:00 97.9 72 24 110/60 (77) 92 12/07/18 04:00 2.0 12/07/18 04:00 Nasal Cannula 2.0 12/07/18 04:00 70 12/07/18 00:00 97.7 60 18 105/55 (72) 95 12/07/18 00:00 65 12/07/18 00:00 Nasal Cannula 2.0 12/06/18 20:00 97.7 63 20 114/60 (78) 95 12/06/18 20:00 64 12/06/18 20:00 Nasal Cannula 2.0 12/06/18 20:00 4.0 12/06/18 19:13 97 Nasal Cannula 3.0 32 12/06/18 19:13 Nasal Cannula 3.0 32 Height (Feet): 5 Height (Inches): 4.00 Weight (Pounds): 135 General Appearance: other - weak, opens eyes, + breathing mask HEENT: normocephalic, atraumatic, anicteric Respiratory/Chest: crackles/rales, rhonchi - bilaterally Cardiovascular: normal rate, regular rhythm, no gallop/murmur, no JVD Abdomen: normal bowel sounds, soft, non tender, no organomegaly, non distended Genitourinary: other - no negro Extremities: other - right leg/foot covered Skin: no rash Neurologic/Psychiatric: legal advisor II-XII grossly normal, alert, responsive Lymphatic: no neck adenopathy Musculoskeletal: no effusion Objective Chest x-ray - 12/07/18 - Comparison: 12/05/2018 Findings: Interim placement of a nasogastric tube, tip projecting at the level gastric fundus, proximal port probably beyond the gastroesophageal junction. Bilateral interstitial and airspace opacities appear similar to the previous study. Right arm and innominate venous stents are again demonstrated. MRI - right ankle - Impression: Marrow edema, suspicious for osteomyelitis, involving the posterior calcaneus, talus, middle and lateral cuneiforms Multiple fluid collections versus very edematous phlegmon, as described. These could represent abscesses Evidence of heel ulceration and marked thinning of the skin, consistent with stated clinical history of ulceration and necrotic wound Microbiology Date/Time Source Procedure Growth Status 12/05/18 01:43 Blood Blood Culture - Preliminary NO GROWTH AFTER 24 HOURS Resulted 12/05/18 01:28 Blood Blood Culture - Preliminary NO GROWTH AFTER 24 HOURS Resulted 12/04/18 19:30 Blood Blood Culture - Preliminary NO GROWTH AFTER 48 HOURS Resulted 12/04/18 19:15 Blood Blood Culture - Preliminary NO GROWTH AFTER 48 HOURS Resulted 12/05/18 15:00 Sputum Gram Stain - Final Resulted 12/05/18 15:00 Sputum Culture - Preliminary Staphylococcus Aureus Cynthia Albicans Resulted 12/04/18 20:55 Nasal Nares MRSA Culture - Final Staphylococcus Aureus - Mrsa Complete 12/04/18 20:00 Nasal Nares Influenza Types A,B Antigen (SUHAIL) - Final Complete 12/05/18 11:30 Urine,Clean Catch Urine Culture - Final Escherichia Coli - Esbl Complete 12/04/18 20:00 Urine,Clean Catch Urine Culture - Final Escherichia Coli - Esbl Complete 12/04/18 20:55 Rectum VRE Culture - Final Enterococcus Faecium - Vre Complete 12/04/18 20:55 Rectum Received Laboratory Tests Test 12/06/18 18:30 12/07/18 10:35 Stool Occult Blood Positive (NEGATIVE) White Blood Count 24.0 K/UL (4.8-10.8) *H Red Blood Count 2.36 M/UL (4.70-6.10) L Hemoglobin 7.6 G/DL (14.2-18.0) L Hematocrit 24.9 % (42.0-52.0) L Mean Corpuscular Volume 106 FL (80-99) H Mean Corpuscular Hemoglobin 32.2 PG (27.0-31.0) H Mean Corpuscular Hemoglobin Concent 30.5 G/DL (32.0-36.0) L Red Cell Distribution Width 19.4 % (11.6-14.8) H Platelet Count 230 K/UL (150-450) Mean Platelet Volume 9.6 FL (6.5-10.1) Neutrophils (%) (Auto) % (45.0-75.0) Lymphocytes (%) (Auto) % (20.0-45.0) Monocytes (%) (Auto) % (1.0-10.0) Eosinophils (%) (Auto) % (0.0-3.0) Basophils (%) (Auto) % (0.0-2.0) Differential Total Cells Counted 100 Neutrophils % (Manual) 81 % (45-75) H Lymphocytes % (Manual) 3 % (20-45) L Monocytes % (Manual) 5 % (1-10) Eosinophils % (Manual) 0 % (0-3) Basophils % (Manual) 0 % (0-2) Band Neutrophils 11 % (0-8) H Platelet Estimate Adequate Platelet Morphology Normal Hypochromasia 3+ Anisocytosis 2+ Macrocytosis 2+ Target Cells 3+ Erythrocyte Sedimentation Rate 98 MM/HR (0-20) H Reticulocyte Count 3.9 % (0.0-2.0) H Prothrombin Time 13.6 SEC (9.30-11.50) H Prothromb Time International Ratio 1.3 (0.9-1.1) H Activated Partial Thromboplast Time 35 SEC (23-33) H Sodium Level 135 MMOL/L (136-145) L Potassium Level 4.6 MMOL/L (3.5-5.1) Chloride Level 101 MMOL/L (98-107) Carbon Dioxide Level 27 MMOL/L (21-32) Anion Gap 7 mmol/L (5-15) Blood Urea Nitrogen 49 mg/dL (7-18) H Creatinine 3.7 MG/DL (0.55-1.30) H Estimat Glomerular Filtration Rate 16.5 mL/min (>60) Glucose Level 67 MG/DL (74-106) L Uric Acid 5.1 MG/DL (2.6-7.2) Calcium Level 8.9 MG/DL (8.5-10.1) Phosphorus Level 4.9 MG/DL (2.5-4.9) Magnesium Level 2.1 MG/DL (1.8-2.4) Iron Level 19 ug/dL (50-175) L Total Iron Binding Capacity 72 ug/dL (250-450) L Percent Iron Saturation 26 % (15-50) Unsaturated Iron Binding 53 ug/dL (112-346) L Total Bilirubin 3.3 MG/DL (0.2-1.0) H Direct Bilirubin 2.8 MG/DL (0.0-0.3) H Aspartate Amino Transf (AST/SGOT) 26 U/L (15-37) Alanine Aminotransferase (ALT/SGPT) 10 U/L (12-78) L Alkaline Phosphatase 173 U/L (46-116) H Lactate Dehydrogenase 201 U/L (81-234) Troponin I 0.062 ng/mL (0.000-0.056) Pro-B-Type Natriuretic Peptide > 29745 pg/mL (0-125) H Total Protein 7.2 G/DL (6.4-8.2) Albumin 1.8 G/DL (3.4-5.0) L Globulin 5.4 g/dL Albumin/Globulin Ratio 0.3 (1.0-2.7) L Carcinoembryonic Antigen Pending Current Medications Medications (Trade) Dose Ordered Sig/Ronald Route PRN Reason Start Time Stop Time Status Last Admin Dose Admin Acetaminophen/ Hydrocodone Bitart (Henriette 5/325) 1 tab Q4H PRN ORAL For Severe Pain 12/05/18 10:00 12/12/18 09:57 Aspirin (Ecotrin) 81 mg DAILY ORAL 12/06/18 09:00 01/05/19 08:59 12/07/18 08:36 Dextrose (Dextrose 50%) 25 ml Q30M PRN IV Hypoglycemia 12/04/18 22:45 01/03/19 22:44 Dextrose (Dextrose 50%) 50 ml Q30M PRN IV Hypoglycemia 12/04/18 22:45 01/03/19 22:44 12/07/18 06:21 Docusate Sodium (Colace) 200 mg DAILY ORAL 12/06/18 09:00 01/05/19 08:59 12/07/18 08:36 Duloxetine HCl (Cymbalta) 20 mg DAILY ORAL 12/06/18 09:00 01/05/19 08:59 12/07/18 08:36 Heparin Sodium (Porcine) (Heparin 5000 units/ml) 5,000 units EVERY 12 HOURS SUBQ 12/05/18 09:00 01/04/19 08:59 12/07/18 08:38 Iopamidol (Isovue-370 150ml) 150 ml NOW PRN INJ Radiology Procedure 12/06/18 17:00 12/08/18 16:48 Iopamidol (Isovue-370 150ml) 150 ml NOW PRN INJ Radiology Procedure 12/06/18 17:00 12/08/18 16:48 Meropenem 500 mg/ Sodium Chloride 55 ml @ 110 mls/hr Q24H IVPB 12/05/18 21:00 12/10/18 20:59 12/06/18 20:32 Nitroglycerin (Ntg) 1 patch Q24H TDERMAL 12/05/18 13:00 01/04/19 12:59 12/07/18 13:03 Pantoprazole (Protonix) 40 mg EVERY 12 HOURS ORAL 12/05/18 21:00 01/04/19 20:59 12/07/18 08:35 Povidone Iodine (Betadine María) 1 applic QHS TOPIC 12/06/18 21:00 01/05/19 20:59 Pyridoxine HCl (Vitamin B6) 25 mg DAILY ORAL 12/06/18 09:00 01/05/19 08:59 12/07/18 08:35 Sevelamer Carbonate (Renvela) 800 mg THREE TIMES A DAY ORAL 12/05/18 13:00 01/04/19 12:59 12/07/18 13:04 Tramadol HCl (Ultram) 50 mg Q6H PRN ORAL For Mod Pain 12/05/18 09:59 12/12/18 09:58 Vitamin B Complex/ Vit C/Folic Acid (Nephrovite) 1 tab DAILY ORAL 12/06/18 09:00 01/05/19 08:59 12/07/18 08:36 Anshu Munguia MD Dec 07, 2018 17:02
--- NOTE | 2018-12-07 19:12 | NUR ---
HAND-OFF: Report given to Rafal Gomez RN.
--- NOTE | 2018-12-07 19:13 | NUR ---
NURSE NOTES: BEDSIDE REPORT RECEIVED FROM [facility]. PT IS X3, ORIENTED TO NAME, PLACE, TIME. CONSTRUCTION MATERIALS TESTER SHOWING NSR. VENTURI 40% 8L SATING AT 90%. NEPRO @ 20; NO RESIDUAL, GOAL 40. LAST BM IS 12/07. ESRD PT, LOW URINE OUTPUT. P200 MATRESS NOTED, R FOOT NECROTIC, SACRAL S2, R AKA. LAC 20G, DEEPTI SHUNT NOTED; ASYMPTOMATIC. LABS OK PER RN, NO ORDER FOR HGB OR NA. BED IS LOCKED IN LOWEST POSITION, SR X3, CALL JOHN W/ IN REACH, BED ALARM ON. WILL CONTINUE TO MONITOR AND FOLLOW PLAN OF CARE.
[2018-12-07 20:00] VITALS: BP 102/57
[2018-12-07] MEDS: Meropenem 500 MG in NS 55 ML IVPB SCH (20:15)
[2018-12-07] MEDS: Betadine 4oz Bottle TOPIC SCH (20:18)
--- NOTE | 2018-12-07 21:07 | General Progress Note ---
Assessment/Plan Status: progressing Assessment/Plan Assessment 68 year old male with PMH of DM, ESRD on HD (MWF - Last 12/03/18), s/p BKA, L chronic pressure ulcer and PVD was transferred from SNF for acute onset of shortness of breath and altered mental status, admitted for sepsis likely 2/2 R foot infection vs UTI vs PNA Plan #Sepsis 2/2 R foot infection vs UTI vs PNA #Acute encephalopathy 2/2 infectious process - improved #Acute hypercapnic respiratory failure 2/2 PNA -Cont vancomycin and meropenen -Transitioned from BiPAP to NC with good saturations -ABP PRN -Pulmonary consult appreciated -ID consult appreciated -Surgery consult appreciated -MRI right foot and ankle: +osteomyelitis and fluid collection likely abscess -Vascular and podiatry consulted -Pending CTA and vascular recs, may need BKA -daily care per surgery #Leukocytosis likly 2/2 infection vs leukomoid infection -28 >21 > 24 -Flow cytometry pending -Hematology consult appreciated #Dysphagia -NG tube placed -NPO #DM now hypoglycemic -hypoglycemia likley 2/2 sepsis -hold antiDM medications -FSG Q6hrs -Currently NPO, D10@ 50 started -Monitor respiratory status #ESRD on HD (MWF) via R arm fistula #HyperKalemia #HypoNA -no signs of fluid overload -nephrology consult appreciated -CTM electrolytes -HD per renal -Last HD 12/06 Code status with discussion: Full I spent 45 min on this patients care, and 36 min was dedicated to counseling and /or care coordination Time of note may not represent time of encounter Subjective Date patient seen: Dec 07, 2018 ROS Limited/Unobtainable: Yes Constitutional: Reports: no symptoms HEENT: Reports: no symptoms Cardiovascular: Reports: no symptoms Respiratory: Reports: no symptoms Gastrointestinal/Abdominal: Reports: no symptoms Genitourinary: Reports: no symptoms Neurologic/Psychiatric: Reports: no symptoms Endocrine: Reports: no symptoms Hematologic/Lymphatic: Reports: no symptoms Allergies: Coded Allergies: PENICILLINS (Unverified Allergy, Mild, 12/05/18) PHENYTOIN (Verified Allergy, Unknown, 10/17/18) Uncoded Allergies: PENICILLIN (Allergy, Mild, 11/17/18) Subjective No acute overnight events, pt more awake and alert this morning, complains of RLE pain, otherwise no other complaints. MRI foot/ankle +OM, + fluid collections likely abscess Objective Last 24 Hour Vital Signs Date Time Temp Pulse Resp B/P (MAP) Pulse Ox O2 Delivery O2 Flow Rate FiO2 12/07/18 20:25 66 20 Venturi Mask 14.0 55 12/07/18 20:25 Venturi Mask 14.0 55 12/07/18 20:25 95 Venturi Mask 14.0 55 12/07/18 16:00 Nasal Cannula 2.0 12/07/18 16:00 98.0 67 19 103/46 (65) 96 12/07/18 16:00 68 12/07/18 16:00 8.0 40 12/07/18 13:03 122/72 12/07/18 12:00 98.6 71 18 122/72 (89) 96 12/07/18 12:00 4.0 12/07/18 12:00 Nasal Cannula 2.0 12/07/18 12:00 69 12/07/18 08:00 68 12/07/18 08:00 Nasal Cannula 2.0 12/07/18 08:00 97.9 68 25 118/67 (84) 92 12/07/18 08:00 2.0 12/07/18 07:55 Nasal Cannula 3.0 32 12/07/18 07:55 95 Nasal Cannula 3.0 32 12/07/18 04:00 97.9 72 24 110/60 (77) 92 12/07/18 04:00 2.0 12/07/18 04:00 Nasal Cannula 2.0 12/07/18 04:00 70 12/07/18 00:00 97.7 60 18 105/55 (72) 95 12/07/18 00:00 65 12/07/18 00:00 Nasal Cannula 2.0 Intake and Output 12/06/18 12/07/18 18:59 06:59 Intake Total 210 ml Output Total 2010 ml Balance -2010 ml 210 ml Free Water 60 ml Tube Feeding 150 ml Output Urine Total 10 ml Hemodialysis UF 2000 ml # Bowel Movements 1 Laboratory Tests 12/07/18 10:35: White Blood Count 24.0*H, Red Blood Count 2.36L, Hemoglobin 7.6L, Hematocrit 24.9L, Mean Corpuscular Volume 106H, Mean Corpuscular Hemoglobin 32.2H, Mean Corpuscular Hemoglobin Concent 30.5L, Red Cell Distribution Width 19.4H, Platelet Count 230, Mean Platelet Volume 9.6, Neutrophils (%) (Auto) , Lymphocytes (%) (Auto) , Monocytes (%) (Auto) , Eosinophils (%) (Auto) , Basophils (%) (Auto) , Differential Total Cells Counted 100, Neutrophils % ( Manual) 81H, Lymphocytes % (Manual) 3L, Monocytes % (Manual) 5, Eosinophils % ( Manual) 0, Basophils % (Manual) 0, Band Neutrophils 11H, Platelet Estimate Adequate, Platelet Morphology Normal, Hypochromasia 3+, Anisocytosis 2+, Macrocytosis 2+, Target Cells 3+, Erythrocyte Sedimentation Rate 98H, Reticulocyte Count 3.9H, Prothrombin Time 13.6H, Prothromb Time International Ratio 1.3H, Activated Partial Thromboplast Time 35H, Sodium Level 135L, Potassium Level 4.6, Chloride Level 101, Carbon Dioxide Level 27, Anion Gap 7, Blood Urea Nitrogen 49H, Creatinine 3.7H, Estimat Glomerular Filtration Rate 16.5, Glucose Level 67L, Uric Acid 5.1, Calcium Level 8.9, Phosphorus Level 4.9 , Magnesium Level 2.1, Iron Level 19L, Total Iron Binding Capacity 72L, Percent Iron Saturation 26, Unsaturated Iron Binding 53L, Total Bilirubin 3.3H, Direct Bilirubin 2.8H, Aspartate Amino Transf (AST/SGOT) 26, Alanine Aminotransferase ( ALT/SGPT) 10L, Alkaline Phosphatase 173H, Lactate Dehydrogenase 201, Troponin I 0.062H, Pro-B-Type Natriuretic Peptide > 69341C, Total Protein 7.2, Albumin 1.8L , Globulin 5.4, Albumin/Globulin Ratio 0.3L, Carcinoembryonic Antigen [Pending] Height (Feet): 5 Height (Inches): 4.00 Weight (Pounds): 135 Objective General: calm, appears stated age, on NC sat @98% Head: normocephalic, without obvious abnormality, atraumatic Eyes: conjunctivae/corneas clear. PERRL, EOM's intact Throat: lips, mucosa, and tongue normal. MMM Neck: supple, symmetrical, trachea midline, and no JVD Lungs: decreased effort, no wheezing, crackles or rhonchi from anterior chest Heart: regular rate and rhythm, S1, S2 normal, no murmur, click, rub or gallop Abdomen: soft, non-tender, non-distended, bowel sounds normal; no masses or organomegaly Extremities: L BKA, R stage 4 heel ulcer, R dorsum with dark discoloration, necrotic tissue, foul odor, +drainage Pulses: +1 pulse Skin: skin color, texture, turgor normal; no rashes or lesions Neurologic: grossly normal Frieda Miller MD Dec 07, 2018 21:07
[2018-12-08] VITALS: BP 100/50
--- NOTE | 2018-12-08 00:15 | General Progress Note ---
Assessment/Plan Assessment/Plan ASSESSMENT/RECS: # Leukocytosis/Elevated white blood cell count, unspecified likely related to underlying stress reaction, smoking, or underlying infection (especially if bandemia is noted) --> have reviewed peripheral smear and bandemia/neutrophilia noted --> esr and crp elevated on prior labs --> continue on meropenem and vancomycin started by ID team --> monitor for resolution 28k-->21k-->24 --> flow cytometry pending # Anemia of chronic disease due to underlying chronic medical issues, multifactorial --> Anemia workup has been reviewed, Ferritin 1678 --> No evidence of hemolysis is noted, peripheral smear has been reviewed. --> Hgb goal >7. Transfuse prn. --> Epogen or iron at this time is not particularly indicated --> Medications have been reviewed # Coagulopathy with elevated inr --> consider repeat in one week --> if persists consider mixing study # Sepsis, elevated white count --> on meropenem and vancomycin, pending workup for sepsis --> appreciate ID recs # End-stage renal disease on hemodialysis --> appreciate nephro recs # R foot infection vs UTI vs PNA --> appreciate ID recs # Acute hypercapnic respiratory failure , Cont BiPAP, --> appreciate pulm recs The timing of this note does not necessarily reflect the time of the patient was seen. Greatly appreciate consultation! Subjective Date patient seen: Dec 07, 2018 Constitutional: Denies: no symptoms, chills, diaphoresis, fever, malaise, weakness, other Respiratory: Denies: no symptoms, cough, orthopnea, shortness of breath, SOB with excertion, SOB at rest, sputum, stridor, wheezing, other Gastrointestinal/Abdominal: Denies: no symptoms, abdomen distended, abdominal pain, black stools, tarry stools, blood in stool, constipated, diarrhea, difficulty swallowing, nausea, poor appetite, poor fluid intake, rectal bleeding , vomiting, other Genitourinary: Denies: no symptoms, burning, discharge, frequency, flank pain, hematuria, incontinence, pain, urgency, other Endocrine: Denies: no symptoms, excessive sweating, flushing, intolerance to cold, intolerance to heat, increased hunger, increased thirst, increased urine, unexplained weight gain, unexplained weight loss, other Hematologic/Lymphatic: Denies: no symptoms, anemia, easy bleeding, easy bruising, other Allergies: Coded Allergies: PENICILLINS (Unverified Allergy, Mild, 12/05/18) PHENYTOIN (Verified Allergy, Unknown, 10/17/18) Uncoded Allergies: PENICILLIN (Allergy, Mild, 11/17/18) Subjective 12/07: seen by bedside, leukocytosis trending up at 24, on abx, hgb 7.6, no events Objective Last 24 Hour Vital Signs Date Time Temp Pulse Resp B/P (MAP) Pulse Ox O2 Delivery O2 Flow Rate FiO2 12/08/18 00:00 Venturi Mask 8.0 12/08/18 00:00 71 12/07/18 20:25 66 20 Venturi Mask 14.0 55 12/07/18 20:25 Venturi Mask 14.0 55 12/07/18 20:25 95 Venturi Mask 14.0 55 12/07/18 20:00 8.0 45 12/07/18 20:00 98.0 67 20 102/57 (72) 92 12/07/18 20:00 Venturi Mask 8.0 12/07/18 20:00 67 12/07/18 16:00 Nasal Cannula 2.0 12/07/18 16:00 98.0 67 19 103/46 (65) 96 12/07/18 16:00 68 12/07/18 16:00 8.0 40 12/07/18 13:03 122/72 12/07/18 12:00 98.6 71 18 122/72 (89) 96 12/07/18 12:00 4.0 12/07/18 12:00 Nasal Cannula 2.0 12/07/18 12:00 69 12/07/18 08:00 68 12/07/18 08:00 Nasal Cannula 2.0 12/07/18 08:00 97.9 68 25 118/67 (84) 92 12/07/18 08:00 2.0 12/07/18 07:55 Nasal Cannula 3.0 32 12/07/18 07:55 95 Nasal Cannula 3.0 32 12/07/18 04:00 97.9 72 24 110/60 (77) 92 12/07/18 04:00 2.0 12/07/18 04:00 Nasal Cannula 2.0 12/07/18 04:00 70 Intake and Output 12/07/18 12/08/18 18:59 06:59 Intake Total 80 ml 130 ml Output Total 0 ml Balance 80 ml 130 ml Free Water 60 ml Tube Feeding 80 ml 70 ml Output Urine Total 0 ml # Bowel Movements 2 Laboratory Tests 12/07/18 10:35: White Blood Count 24.0*H, Red Blood Count 2.36L, Hemoglobin 7.6L, Hematocrit 24.9L, Mean Corpuscular Volume 106H, Mean Corpuscular Hemoglobin 32.2H, Mean Corpuscular Hemoglobin Concent 30.5L, Red Cell Distribution Width 19.4H, Platelet Count 230, Mean Platelet Volume 9.6, Neutrophils (%) (Auto) , Lymphocytes (%) (Auto) , Monocytes (%) (Auto) , Eosinophils (%) (Auto) , Basophils (%) (Auto) , Differential Total Cells Counted 100, Neutrophils % ( Manual) 81H, Lymphocytes % (Manual) 3L, Monocytes % (Manual) 5, Eosinophils % ( Manual) 0, Basophils % (Manual) 0, Band Neutrophils 11H, Platelet Estimate Adequate, Platelet Morphology Normal, Hypochromasia 3+, Anisocytosis 2+, Macrocytosis 2+, Target Cells 3+, Erythrocyte Sedimentation Rate 98H, Reticulocyte Count 3.9H, Prothrombin Time 13.6H, Prothromb Time International Ratio 1.3H, Activated Partial Thromboplast Time 35H, Sodium Level 135L, Potassium Level 4.6, Chloride Level 101, Carbon Dioxide Level 27, Anion Gap 7, Blood Urea Nitrogen 49H, Creatinine 3.7H, Estimat Glomerular Filtration Rate 16.5, Glucose Level 67L, Uric Acid 5.1, Calcium Level 8.9, Phosphorus Level 4.9 , Magnesium Level 2.1, Iron Level 19L, Total Iron Binding Capacity 72L, Percent Iron Saturation 26, Unsaturated Iron Binding 53L, Total Bilirubin 3.3H, Direct Bilirubin 2.8H, Aspartate Amino Transf (AST/SGOT) 26, Alanine Aminotransferase ( ALT/SGPT) 10L, Alkaline Phosphatase 173H, Lactate Dehydrogenase 201, Troponin I 0.062H, Pro-B-Type Natriuretic Peptide > 81271T, Total Protein 7.2, Albumin 1.8L , Globulin 5.4, Albumin/Globulin Ratio 0.3L, Carcinoembryonic Antigen [Pending] Height (Feet): 5 Height (Inches): 4.00 Weight (Pounds): 135 Objective PHYSICAL EXAMINATION: VITAL SIGNS: Reviewed saturation 100%, blood pressure 102/63, FiO2 4 liters. GENERAL: Alert and responsive No significant shortness of breath noted. HEAD AND NECK: Oral examination, no thrush. Neck is supple. No JVD. HEART: Regular. No gallop or murmur. ABDOMEN: Soft. Positive bowel sounds. Nontender. No organomegaly. LUNGS: Few bilateral rhonchi. No definite rales on exam. Decreased breath sounds. SKIN: No rash. Wounds were reviewed. Vadim Márquez MD Dec 08, 2018 00:15
[2018-12-08 04:00] VITALS: BP 102/50
--- NOTE | 2018-12-08 07:30 | NUR ---
HAND-OFF: Report given to [facility].
--- NOTE | 2018-12-08 07:37 | NUR ---
NURSE NOTES: Received pt from [facility] in stable condition. No cardiopulmondary distress noted. Pt is asleep on Venturi mask with 8L O2 FiO2 40%. Pt has R nare NGT running Nepro at 30cc/Hr. BM noted at this time. Pt has a L ac 20g patent. Skin alterations noted. No urine noted at this time. Bed is in lowest position. Side rails up x 2. Call light within reach. Will continue to monitor pt.
[2018-12-08 07:40] LABS: HEMATOCRIT 25.4 % (42.0-52.0); HEMOGLOBIN 7.7 G/DL (14.2-18.0); MEAN CORPUSCULAR VOLUME 106 FL (80-99); PLATELET COUNT 237 K/UL (150-450); RED CELL DISTRIBUTION WIDTH 19.8 % (11.6-14.8)
[2018-12-08 07:46] LABS: WHITE BLOOD COUNT 23.3 K/UL (4.8-10.8)
[2018-12-08 08:00] VITALS: BP 98/40
[2018-12-08 08:11] LABS: ALANINE AMINOTRANSFERASE 9 U/L (12-78); ALBUMIN 1.9 G/DL (3.4-5.0); ALBUMIN/GLOBULIN RATIO 0.3 (1.0-2.7); ALKALINE PHOSPHATASE 167 U/L (46-116); ANION GAP 6 mmol/L (5-15); ASPARTATE AMINO TRANSFERASE 21 U/L (15-37); BILIRUBIN,TOTAL 3.1 MG/DL (0.2-1.0); BLOOD UREA NITROGEN 60 mg/dL (7-18); CALCIUM 9.1 MG/DL (8.5-10.1); CARBON DIOXIDE 27 MMOL/L (21-32); CHLORIDE 101 MMOL/L (98-107); CREATININE 4.1 MG/DL (0.55-1.30); PHOSPHORUS 5.6 MG/DL (2.5-4.9); POTASSIUM 4.8 MMOL/L (3.5-5.1); SODIUM 134 MMOL/L (136-145)
[2018-12-08 08:12] LABS: BILIRUBIN,DIRECT 2.5 MG/DL (0.0-0.3)
[2018-12-08] MEDS ORDERED: Docusate 100mg/10ml Liq NG SCH (09:00)
[2018-12-08] MEDS: Renvela 800mg Pkt NG SCH ×3 (09:03→18:35)
[2018-12-08] MEDS: Heparin 5000 units/ml inj SUBQ SCH ×2 (09:04→20:03)
[2018-12-08] MEDS: Aspirin Baby 81mg NG SCH (09:05)
[2018-12-08] MEDS: Pyridoxine 50mg tab NG SCH (09:05)
[2018-12-08] MEDS: Nephrovite tab (Rena-Vite) NG SCH (09:05)
--- NOTE | 2018-12-08 11:34 | Surgery Progress Note ---
Surgery Progress Note Subjective Additional Comments leukocytosis. afebrile, HD stable. exam unchanged. MRI noted and reviewed with radiologist. Objective Last 24 Hour Vital Signs Date Time Temp Pulse Resp B/P (MAP) Pulse Ox O2 Delivery O2 Flow Rate FiO2 12/08/18 08:00 8.0 40 12/08/18 08:00 Venturi Mask 8.0 12/08/18 08:00 97.7 67 20 98/40 (59) 96 12/08/18 08:00 66 12/08/18 07:06 99 Venturi Mask 14.0 55 12/08/18 07:06 67 20 Venturi Mask 14.0 55 12/08/18 07:06 Venturi Mask 14.0 55 12/08/18 04:00 68 12/08/18 04:00 97.7 68 20 102/50 (67) 95 12/08/18 04:00 Venturi Mask 8.0 12/08/18 04:00 8.0 45 12/08/18 00:00 97.9 70 20 100/50 (67) 99 12/08/18 00:00 Venturi Mask 8.0 12/08/18 00:00 71 12/07/18 20:25 66 20 Venturi Mask 14.0 55 12/07/18 20:25 Venturi Mask 14.0 55 12/07/18 20:25 95 Venturi Mask 14.0 55 12/07/18 20:00 8.0 45 12/07/18 20:00 98.0 67 20 102/57 (72) 92 12/07/18 20:00 Venturi Mask 8.0 12/07/18 20:00 67 12/07/18 16:00 Nasal Cannula 2.0 12/07/18 16:00 98.0 67 19 103/46 (65) 96 12/07/18 16:00 68 12/07/18 16:00 8.0 40 12/07/18 13:03 122/72 12/07/18 12:00 98.6 71 18 122/72 (89) 96 12/07/18 12:00 4.0 12/07/18 12:00 Nasal Cannula 2.0 12/07/18 12:00 69 I&O Intake and Output 12/07/18 12/08/18 19:00 07:00 Intake Total 80 ml 405 ml Output Total 0 ml Balance 80 ml 405 ml Free Water 90 ml IV Total 55 ml Tube Feeding 80 ml 260 ml Output Urine Total 0 ml # Bowel Movements 2 1 Dressing: saturated Wound: other Drains: other Cardiovascular: RSR Respiratory: clear Abdomen: soft, non-tender, present bowel sounds, non-distended Extremities: cyanosis, other Laboratory Tests Test 12/08/18 06:54 White Blood Count 23.3 K/UL (4.8-10.8) *H Red Blood Count 2.40 M/UL (4.70-6.10) L Hemoglobin 7.7 G/DL (14.2-18.0) L Hematocrit 25.4 % (42.0-52.0) L Mean Corpuscular Volume 106 FL (80-99) H Mean Corpuscular Hemoglobin 32.0 PG (27.0-31.0) H Mean Corpuscular Hemoglobin Concent 30.2 G/DL (32.0-36.0) L Red Cell Distribution Width 19.8 % (11.6-14.8) H Platelet Count 237 K/UL (150-450) Mean Platelet Volume 10.8 FL (6.5-10.1) H Neutrophils (%) (Auto) % (45.0-75.0) Lymphocytes (%) (Auto) % (20.0-45.0) Monocytes (%) (Auto) % (1.0-10.0) Eosinophils (%) (Auto) % (0.0-3.0) Basophils (%) (Auto) % (0.0-2.0) Differential Total Cells Counted 100 Neutrophils % (Manual) 91 % (45-75) H Lymphocytes % (Manual) 2 % (20-45) L Monocytes % (Manual) 6 % (1-10) Eosinophils % (Manual) 1 % (0-3) Basophils % (Manual) 0 % (0-2) Band Neutrophils 0 % (0-8) Platelet Estimate Adequate Platelet Morphology Normal Hypochromasia 3+ Anisocytosis 2+ Macrocytosis 1+ Sodium Level 134 MMOL/L (136-145) L Potassium Level 4.8 MMOL/L (3.5-5.1) Chloride Level 101 MMOL/L (98-107) Carbon Dioxide Level 27 MMOL/L (21-32) Anion Gap 6 mmol/L (5-15) Blood Urea Nitrogen 60 mg/dL (7-18) H Creatinine 4.1 MG/DL (0.55-1.30) H Estimat Glomerular Filtration Rate 14.7 mL/min (>60) Glucose Level 66 MG/DL (74-106) L Calcium Level 9.1 MG/DL (8.5-10.1) Phosphorus Level 5.6 MG/DL (2.5-4.9) H Magnesium Level 2.1 MG/DL (1.8-2.4) Total Bilirubin 3.1 MG/DL (0.2-1.0) H Direct Bilirubin 2.5 MG/DL (0.0-0.3) H Aspartate Amino Transf (AST/SGOT) 21 U/L (15-37) Alanine Aminotransferase (ALT/SGPT) 9 U/L (12-78) L Alkaline Phosphatase 167 U/L (46-116) H Total Protein 7.7 G/DL (6.4-8.2) Albumin 1.9 G/DL (3.4-5.0) L Globulin 5.8 g/dL Albumin/Globulin Ratio 0.3 (1.0-2.7) L Plan Problems: (1) Sepsis Assessment & Plan: Patient presented on admission with necrotic wounds distal Right lower extremity and R foot -dorsal,lateral and medial aspects. R 3rd metatarsal is black. Chronic ulcer R heel that is also necrotic. Wounds/foot malodorous. Small amount brown exudate noted from dorsal wound. Soft medial necrotic 3cm area noted with denuded bleeding tissue just anterior to it. soft tissue overall with soft edema. possible abscess underlying. skin blistering and sloth noted. Partial thickness Sacral pressure injury. Base of wound is moist -viable with dark brown borders. Periwound without induration or erythema (L)4cm x (W)5cm. Currently afebrile and hemodynamically stable. Patient continues to have a leukocytosis. Still pending imaging. Given the appearance of the leg and wound there is significant concern for potential need of amputation. MRI right foot and ankle reviewed Tx.Plan: CTA chest abdomen pelvis with runoff pending Appreciate vascular and Podiatry eval for limb salvage Wash foot daily, apply xeroform and abd, wrap with kerlix Apply Moisture Barrier Paste (Triad /Calazime )to sacrum. Cover with Optifoam drsg .Change every 3 days and prn. APM/JANELL mattress. Reposition at least Q 2hours or as tolerated. Off-Load R heel with pillow. 12/08 - Had long discussion at bedside about condition, MRI findings, clinical exam and physical exam. Patient will likely need right BKA or depending on CTA possibly even AKA. He has had left BKA prior. I asked patient who is awake and alert about how he feels about this and he stated he is considering what to do. Recently he has asked for help with writing a living will for his children in [place]. He states he is not sure if he is interested in having another amputation even if his life is at risk. He states currently he is not ready or interested in amputation. I spoke more with him and really expressed the concerns given exam and clinical date. He seems to understand and stated he will consider it over the next few days. will await results and cont with follow with patient to see what he would like. thank you (2) Hx of Damian Deutsch Dec 08, 2018 11:34
[2018-12-08 12:00] VITALS: BP 101/63
[2018-12-08] MEDS: Nitroglycerin Patch 0.4mg TDERMAL SCH (12:52)
--- NOTE | 2018-12-08 13:05 | General Progress Note ---
Assessment/Plan Assessment/Plan 68 year old male with PMH of DM, ESRD on HD (MWF - Last 12/03/18), s/p BKA, L chronic pressure ulcer and PVD was transferred from SNF for acute onset of shortness of breath and altered mental status, admitted for sepsis likely 2/2 R foot infection vs UTI vs PNA Plan #Severe Sepsis 2/2 R foot infection vs UTI vs PNA #Acute encephalopathy 2/2 infectious process - improved #Acute hypoxemic and hypercapnic respiratory failure 2/2 PNA -Cont vancomycin and meropenen -Transitioned from BiPAP to NC with good saturations -ABP PRN -Pulmonary consult noted, will d/w Pulm re oxygen requirements -ID consult noted, cont broad spectrum IV abx -Surgery consult appreciated, rec amputation, patient declines -MRI right foot and ankle: +osteomyelitis and fluid collection likely abscess -Vascular and podiatry consulted -daily care per surgery #Leukocytosis likly 2/2 infection vs leukomoid infection -28 >21 > 24> -Flow cytometry pending -Hematology consult appreciated #Dysphagia -NG tube placed -NPO, restart tube feeds at 10cc/hr given high residuals, blood sugars in the 60s #DM now hypoglycemic -hypoglycemia likley 2/2 sepsis -hold antiDM medications -FSG Q6hrs -Currently NPO, D10@ 50 started -Monitor respiratory status #ESRD on HD (MWF) via R arm fistula #HyperKalemia #HypoNA -no signs of fluid overload -nephrology consult appreciated -CTM electrolytes -HD per renal -Last HD 12/06 Code status with discussion: Patient seemed supportive of a comfort based approach this morning when I spoke with him, and was also coroborated by other ancillary staff (RT, nursing). However, the patient has changed his mind on this before and would still like to speak with his sister who lives in [place], it is unclear if she will be able to enter the [place] to visit him. We will continue to have the dialogue with him, however the pt should not be escalated to higher level of care given he declines amputation. I spent 45 min on this patients care, and 36 min was dedicated to counseling and /or care coordination Time of note may not represent time of encounter Subjective Date patient seen: Dec 08, 2018 Time patient seen: 12:58 ROS Limited/Unobtainable: Yes Allergies: Coded Allergies: PENICILLINS (Unverified Allergy, Mild, 12/05/18) PHENYTOIN (Verified Allergy, Unknown, 10/17/18) Uncoded Allergies: PENICILLIN (Allergy, Mild, 11/17/18) Subjective Patient on Venturi mask with adequate sats, made NPO due to high residuals from tube feeds, declines amputation. Pt unable to voice any other complaints. Objective Last 24 Hour Vital Signs Date Time Temp Pulse Resp B/P (MAP) Pulse Ox O2 Delivery O2 Flow Rate FiO2 12/08/18 12:00 8.0 40 12/08/18 12:00 Venturi Mask 8.0 12/08/18 08:00 8.0 40 12/08/18 08:00 Venturi Mask 8.0 12/08/18 08:00 97.7 67 20 98/40 (59) 96 12/08/18 08:00 66 12/08/18 07:06 99 Venturi Mask 14.0 55 12/08/18 07:06 67 20 Venturi Mask 14.0 55 12/08/18 07:06 Venturi Mask 14.0 55 12/08/18 04:00 68 12/08/18 04:00 97.7 68 20 102/50 (67) 95 12/08/18 04:00 Venturi Mask 8.0 12/08/18 04:00 8.0 45 12/08/18 00:00 97.9 70 20 100/50 (67) 99 12/08/18 00:00 Venturi Mask 8.0 12/08/18 00:00 71 12/07/18 20:25 66 20 Venturi Mask 14.0 55 12/07/18 20:25 Venturi Mask 14.0 55 12/07/18 20:25 95 Venturi Mask 14.0 55 12/07/18 20:00 8.0 45 12/07/18 20:00 98.0 67 20 102/57 (72) 92 12/07/18 20:00 Venturi Mask 8.0 12/07/18 20:00 67 12/07/18 16:00 Nasal Cannula 2.0 12/07/18 16:00 98.0 67 19 103/46 (65) 96 12/07/18 16:00 68 12/07/18 16:00 8.0 40 12/07/18 13:03 122/72 Intake and Output 3/15/19 3/16/19 19:00 07:00 Intake Total 80 ml 405 ml Output Total 0 ml Balance 80 ml 405 ml Free Water 90 ml IV Total 55 ml Tube Feeding 80 ml 260 ml Output Urine Total 0 ml # Bowel Movements 2 1 Laboratory Tests 12/08/18 06:54: White Blood Count 23.3*H, Red Blood Count 2.40L, Hemoglobin 7.7L, Hematocrit 25.4L, Mean Corpuscular Volume 106H, Mean Corpuscular Hemoglobin 32.0H, Mean Corpuscular Hemoglobin Concent 30.2L, Red Cell Distribution Width 19.8H, Platelet Count 237, Mean Platelet Volume 10.8H, Neutrophils (%) (Auto) , Lymphocytes (%) (Auto) , Monocytes (%) (Auto) , Eosinophils (%) (Auto) , Basophils (%) (Auto) , Differential Total Cells Counted 100, Neutrophils % ( Manual) 91H, Lymphocytes % (Manual) 2L, Monocytes % (Manual) 6, Eosinophils % ( Manual) 1, Basophils % (Manual) 0, Band Neutrophils 0, Platelet Estimate Adequate, Platelet Morphology Normal, Hypochromasia 3+, Anisocytosis 2+, Macrocytosis 1+, Sodium Level 134L, Potassium Level 4.8, Chloride Level 101, Carbon Dioxide Level 27, Anion Gap 6, Blood Urea Nitrogen 60H, Creatinine 4.1H, Estimat Glomerular Filtration Rate 14.7, Glucose Level 66L, Calcium Level 9.1, Phosphorus Level 5.6H, Magnesium Level 2.1, Total Bilirubin 3.1H, Direct Bilirubin 2.5H, Aspartate Amino Transf (AST/SGOT) 21, Alanine Aminotransferase ( ALT/SGPT) 9L, Alkaline Phosphatase 167H, Total Protein 7.7, Albumin 1.9L, Globulin 5.8, Albumin/Globulin Ratio 0.3L Height (Feet): 5 Height (Inches): 4.00 Weight (Pounds): 134 Objective General: alert, cooperative, no distress, appears older than stated age Head: normocephalic, without obvious abnormality, atraumatic Eyes: conjunctivae/corneas clear. PERRL, EOM's intact Throat: lips, mucosa, and tongue normal. MMM Neck: supple, symmetrical, trachea midline, and no JVD Lungs: clear to auscultation bilaterally Heart: regular rate and rhythm, S1, S2 normal, no murmur, click, rub or gallop Abdomen: soft, non-tender, non-distended, bowel sounds normal; no masses or organomegaly Extremities: L BKA, R foot in dressing Skin: skin color, texture, turgor normal; no rashes or lesions Neurologic: lethargic, slow to respond Pam Andrade MD Dec 08, 2018 13:05
--- NOTE | 2018-12-08 13:59 | NUR ---
NURSE NOTES: Spoke with Dr Andrade about high residuals. Instructed to resume feeding at 10 cc/hr.
--- NOTE | 2018-12-08 14:56 | Nephrology Progress Note ---
Assessment/Plan Problem List: (1) ESRF (end stage renal failure) (2) Leukocytosis Assessment: sepsis (3) CHF (congestive heart failure) (4) Acute respiratory failure (5) Hyperbilirubinemia Assessment admitted with sepsis and shortness of breath (1) ESRD (end stage renal disease) right arm fistula (2) Possible Fluid overload, unspecified (3) h/o Bradycardia (4) Anemia (5) h/o Pleural effusion (6) Elevated troponin (7) Allergy Dialntin & PCN (8) Elevated Bili Plan was on bipap , now is on O2 cannula HD next 12/10 adjust BP meds 2D Echo 55% EjFx stop beta blockers for low HR hydralazin and procardia as needed reviewe CXR : Pneumonia per consultants Subjective ROS Limited/Unobtainable: No Constitutional: Reports: malaise, weakness Objective Objective Last 24 Hour Vital Signs Date Time Temp Pulse Resp B/P (MAP) Pulse Ox O2 Delivery O2 Flow Rate FiO2 12/08/18 12:52 101/63 12/08/18 12:00 8.0 40 12/08/18 12:00 97.3 64 24 101/63 (76) 98 12/08/18 12:00 Venturi Mask 8.0 12/08/18 12:00 64 12/08/18 08:00 8.0 40 12/08/18 08:00 Venturi Mask 8.0 12/08/18 08:00 97.7 67 20 98/40 (59) 96 12/08/18 08:00 66 12/08/18 07:06 99 Venturi Mask 14.0 55 12/08/18 07:06 67 20 Venturi Mask 14.0 55 12/08/18 07:06 Venturi Mask 14.0 55 12/08/18 04:00 68 12/08/18 04:00 97.7 68 20 102/50 (67) 95 12/08/18 04:00 Venturi Mask 8.0 12/08/18 04:00 8.0 45 12/08/18 00:00 97.9 70 20 100/50 (67) 99 12/08/18 00:00 Venturi Mask 8.0 12/08/18 00:00 71 12/07/18 20:25 66 20 Venturi Mask 14.0 55 12/07/18 20:25 Venturi Mask 14.0 55 12/07/18 20:25 95 Venturi Mask 14.0 55 12/07/18 20:00 8.0 45 12/07/18 20:00 98.0 67 20 102/57 (72) 92 12/07/18 20:00 Venturi Mask 8.0 12/07/18 20:00 67 12/07/18 16:00 Nasal Cannula 2.0 12/07/18 16:00 98.0 103/46 (65) 96 12/07/18 16:00 68 12/07/18 16:00 8.0 40 Intake and Output 12/07/18 12/08/18 19:00 07:00 Intake Total 80 ml 405 ml Output Total 0 ml Balance 80 ml 405 ml Free Water 90 ml IV Total 55 ml Tube Feeding 80 ml 260 ml Output Urine Total 0 ml # Bowel Movements 2 1 Laboratory Tests 12/08/18 06:54: White Blood Count 23.3*H, Red Blood Count 2.40L, Hemoglobin 7.7L, Hematocrit 25.4L, Mean Corpuscular Volume 106H, Mean Corpuscular Hemoglobin 32.0H, Mean Corpuscular Hemoglobin Concent 30.2L, Red Cell Distribution Width 19.8H, Platelet Count 237, Mean Platelet Volume 10.8H, Neutrophils (%) (Auto) , Lymphocytes (%) (Auto) , Monocytes (%) (Auto) , Eosinophils (%) (Auto) , Basophils (%) (Auto) , Differential Total Cells Counted 100, Neutrophils % ( Manual) 91H, Lymphocytes % (Manual) 2L, Monocytes % (Manual) 6, Eosinophils % ( Manual) 1, Basophils % (Manual) 0, Band Neutrophils 0, Platelet Estimate Adequate, Platelet Morphology Normal, Hypochromasia 3+, Anisocytosis 2+, Macrocytosis 1+, Sodium Level 134L, Potassium Level 4.8, Chloride Level 101, Carbon Dioxide Level 27, Anion Gap 6, Blood Urea Nitrogen 60H, Creatinine 4.1H, Estimat Glomerular Filtration Rate 14.7, Glucose Level 66L, Calcium Level 9.1, Phosphorus Level 5.6H, Magnesium Level 2.1, Total Bilirubin 3.1H, Direct Bilirubin 2.5H, Aspartate Amino Transf (AST/SGOT) 21, Alanine Aminotransferase ( ALT/SGPT) 9L, Alkaline Phosphatase 167H, Total Protein 7.7, Albumin 1.9L, Globulin 5.8, Albumin/Globulin Ratio 0.3L Height (Feet): 5 Height (Inches): 4.00 Weight (Pounds): 134 General Appearance: no apparent distress Cardiovascular: normal rate Respiratory/Chest: decreased breath sounds Abdomen: soft Alessandro Price MD Dec 08, 2018 14:56
--- NOTE | 2018-12-08 15:46 | Pulmonology Progress Note ---
Assessment/Plan Problems: (1) Acute respiratory failure (2) Severe sepsis (3) ESRF (end stage renal failure) (4) Diabetes mellitus (5) Decubitus ulcer of right heel, stage 4 (6) Acute metabolic encephalopathy (7) S/P BKA (below knee amputation) Assessment/Plan afebrile wbc still high sputum has Staph aureus imaging from decubiti ulcers are pending off bipap, tolerating nasal cannula dvt prophylaxis. aspiration precaution f/u cultures Subjective ROS Limited/Unobtainable: No Interval Events: off bipap, on NG tube Constitutional: Reports: no symptoms Respiratory: Reports: no symptoms Allergies: Coded Allergies: PENICILLINS (Unverified Allergy, Mild, 12/05/18) PHENYTOIN (Verified Allergy, Unknown, 10/17/18) Uncoded Allergies: PENICILLIN (Allergy, Mild, 11/17/18) Objective Last 24 Hour Vital Signs Date Time Temp Pulse Resp B/P (MAP) Pulse Ox O2 Delivery O2 Flow Rate FiO2 12/08/18 12:52 101/63 12/08/18 12:00 8.0 40 12/08/18 12:00 97.3 64 24 101/63 (76) 98 12/08/18 12:00 Venturi Mask 8.0 12/08/18 12:00 64 12/08/18 08:00 8.0 40 12/08/18 08:00 Venturi Mask 8.0 12/08/18 08:00 97.7 67 20 98/40 (59) 96 12/08/18 08:00 66 12/08/18 07:06 99 Venturi Mask 14.0 55 12/08/18 07:06 67 20 Venturi Mask 14.0 55 12/08/18 07:06 Venturi Mask 14.0 55 12/08/18 04:00 68 12/08/18 04:00 97.7 68 20 102/50 (67) 95 12/08/18 04:00 Venturi Mask 8.0 12/08/18 04:00 8.0 45 12/08/18 00:00 97.9 70 20 100/50 (67) 99 12/08/18 00:00 Venturi Mask 8.0 12/08/18 00:00 71 12/07/18 20:25 66 20 Venturi Mask 14.0 55 12/07/18 20:25 Venturi Mask 14.0 55 12/07/18 20:25 95 Venturi Mask 14.0 55 12/07/18 20:00 8.0 45 12/07/18 20:00 98.0 102/57 (72) 92 12/07/18 20:00 Venturi Mask 8.0 12/07/18 20:00 67 12/07/18 16:00 Nasal Cannula 2.0 12/07/18 16:00 98.0 103/46 (65) 96 12/07/18 16:00 68 12/07/18 16:00 8.0 40 Intake and Output 12/07/18 12/08/18 19:00 07:00 Intake Total 80 ml 405 ml Output Total 0 ml Balance 80 ml 405 ml Free Water 90 ml IV Total 55 ml Tube Feeding 80 ml 260 ml Output Urine Total 0 ml # Bowel Movements 2 1 General Appearance: cachetic HEENT: normocephalic, atraumatic Respiratory/Chest: chest wall non-tender, accessory muscle use Cardiovascular: normal peripheral pulses, normal rate Abdomen: normal bowel sounds, soft, non tender Genitourinary: normal external genitalia Extremities: no cyanosis Skin: no lesions 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 Lymphatic: no neck adenopathy Laboratory Tests 12/08/18 06:54: White Blood Count 23.3*H, Red Blood Count 2.40L, Hemoglobin 7.7L, Hematocrit 25.4L, Mean Corpuscular Volume 106H, Mean Corpuscular Hemoglobin 32.0H, Mean Corpuscular Hemoglobin Concent 30.2L, Red Cell Distribution Width 19.8H, Platelet Count 237, Mean Platelet Volume 10.8H, Neutrophils (%) (Auto) , Lymphocytes (%) (Auto) , Monocytes (%) (Auto) , Eosinophils (%) (Auto) , Basophils (%) (Auto) , Differential Total Cells Counted 100, Neutrophils % ( Manual) 91H, Lymphocytes % (Manual) 2L, Monocytes % (Manual) 6, Eosinophils % ( Manual) 1, Basophils % (Manual) 0, Band Neutrophils 0, Platelet Estimate Adequate, Platelet Morphology Normal, Hypochromasia 3+, Anisocytosis 2+, Macrocytosis 1+, Sodium Level 134L, Potassium Level 4.8, Chloride Level 101, Carbon Dioxide Level 27, Anion Gap 6, Blood Urea Nitrogen 60H, Creatinine 4.1H, Estimat Glomerular Filtration Rate 14.7, Glucose Level 66L, Calcium Level 9.1, Phosphorus Level 5.6H, Magnesium Level 2.1, Total Bilirubin 3.1H, Direct Bilirubin 2.5H, Aspartate Amino Transf (AST/SGOT) 21, Alanine Aminotransferase ( ALT/SGPT) 9L, Alkaline Phosphatase 167H, Total Protein 7.7, Albumin 1.9L, Globulin 5.8, Albumin/Globulin Ratio 0.3L Current Medications Medications (Trade) Dose Ordered Sig/Ronald Route PRN Reason Start Time Stop Time Status Last Admin Dose Admin Acetaminophen/ Hydrocodone Bitart ([place] 5/325) 1 tab Q4H PRN ORAL For Severe Pain 12/05/18 10:00 12/12/18 09:57 Aspirin (ASA) 81 mg DAILY NG 12/08/18 09:00 01/07/19 08:59 12/08/18 09:05 Dextrose (Dextrose 50%) 25 ml Q30M PRN IV Hypoglycemia 12/04/18 22:45 01/03/19 22:44 Dextrose (Dextrose 50%) 50 ml Q30M PRN IV Hypoglycemia 12/04/18 22:45 01/03/19 22:44 12/07/18 17:24 Docusate Sodium (Colace) 200 mg DAILY NG 12/08/18 09:00 01/07/19 08:59 12/08/18 09:03 Heparin Sodium (Porcine) (Heparin 5000 units/ml) 5,000 units EVERY 12 HOURS SUBQ 12/05/18 09:00 01/04/19 08:59 12/08/18 09:04 Iopamidol (Isovue-370 150ml) 150 ml NOW PRN INJ Radiology Procedure 12/06/18 17:00 12/08/18 16:48 Iopamidol (Isovue-370 150ml) 150 ml NOW PRN INJ Radiology Procedure 12/06/18 17:00 12/08/18 16:48 Lansoprazole (Prevacid) 30 mg DAILY NG 12/09/18 09:00 01/08/19 08:59 Meropenem 500 mg/ Sodium Chloride 55 ml @ 110 mls/hr Q24H IVPB 12/05/18 21:00 12/10/18 20:59 12/07/18 20:15 Nitroglycerin (Ntg) 1 patch Q24H TDERMAL 12/05/18 13:00 01/04/19 12:59 12/07/18 13:03 Povidone Iodine (Betadine María) 1 applic QHS TOPIC 12/06/18 21:00 01/05/19 20:59 12/07/18 20:18 Pyridoxine HCl (Vitamin B6) 25 mg DAILY NG 12/08/18 09:00 01/07/19 08:59 12/08/18 09:05 Sevelamer Carbonate (Renvela) 800 mg THREE TIMES A DAY NG 12/08/18 09:00 01/07/19 08:59 12/08/18 12:51 Tramadol HCl (Ultram) 50 mg Q6H PRN ORAL For Mod Pain 12/05/18 09:59 12/12/18 09:58 Vitamin B Complex/ Vit C/Folic Acid (Nephrovite) 1 tab DAILY NG 12/08/18 09:00 01/07/19 08:59 12/08/18 09:05 Tamia Lerma MD Dec 08, 2018 15:46
[2018-12-08 16:00] VITALS: BP 114/58
--- NOTE | 2018-12-08 19:19 | NUR ---
HAND-OFF: Report given to SONG Shelby. Pt in stable condition.
--- NOTE | 2018-12-08 19:20 | NUR ---
NURSE NOTES: BEDSIDE REPORT RECEIVED FROM SONG ROCHE. PT IS X3, ORIENTED TO NAME, PLACE, TIME. WELFARE INVESTIGATOR SHOWING NSR. VENTURI 40% 8L SATING AT 90%. NEPRO OFF FOR HIGH RESIDUAL, WILL ACCESS LATER, MD AWARE. ESRD PT, LOW URINE OUTPUT. P200 MATRESS NOTED, R FOOT NECROTIC, SACRAL S2, R AKA. LAC 20G, DEEPTI SHUNT NOTED; ASYMPTOMATIC. LABS OK MD AWARE. BED IS LOCKED IN LOWEST POSITION, SR X3, CALL JOHN W/ IN REACH, BED ALARM ON. WILL CONTINUE TO MONITOR AND FOLLOW PLAN OF CARE.
[2018-12-08 20:00] VITALS: BP 136/71
[2018-12-08] MEDS: Betadine 4oz Bottle TOPIC SCH (20:02)
[2018-12-08] MEDS: Meropenem 500 MG in NS 55 ML IVPB SCH (21:32)
[2018-12-09] VITALS: BP 111/65
[2018-12-09 04:00] VITALS: BP 94/57
--- NOTE | 2018-12-09 06:58 | NUR ---
HAND-OFF: Report given to [facility].
--- NOTE | 2018-12-09 07:10 | NUR ---
NURSE NOTES: Received pt from SONG Shelby in stable condition. No cardiopulmondary distress noted. Pt is asleep on Venturi mask with 9L O2 FiO2 40%. Pt has R nare NGT running Nepro at 10cc/Hr. No residuals noted at this time, feeding increased to 15cc/hr. BM noted at this time. Pt has a L ac 20g patent. Skin alterations noted. No urine noted at this time. Bed is in lowest position. Side rails up x 2. Call light within reach. Will continue to monitor pt.
[2018-12-09 07:45] VITALS: BP 104/68
[2018-12-09] MEDS: Renvela 800mg Pkt NG SCH ×3 (08:37→17:36)
[2018-12-09] MEDS: Pyridoxine 50mg tab NG SCH (08:38)
[2018-12-09] MEDS: Nephrovite tab (Rena-Vite) NG SCH (08:38)
[2018-12-09] MEDS: Heparin 5000 units/ml inj SUBQ SCH ×2 (08:39→22:07)
[2018-12-09] MEDS: Aspirin Baby 81mg NG SCH (08:43)
--- NOTE | 2018-12-09 09:57 | Diagnostic Imaging Report ---
EXAM: XR Chest, 1 View CLINICAL HISTORY: INFECT TECHNIQUE: Frontal view of the chest. COMPARISON: Chest x-ray dated 12/07/18 FINDINGS: Lungs: No significant interval change of bilateral interstitial and airspace opacities. Pleural space: Unremarkable. The costophrenic angles are sharp. No visible pneumothorax. Heart: Unremarkable. No cardiomegaly. Mediastinum: Unremarkable. Bones/joints: Degenerative changes throughout the visualized spine and shoulder joints. Vasculature: Unchanged positioning of the right arm and innominate vein stents. Atherosclerotic calcifications within the aortic arch. Tubes, lines and devices: Stable positioning of the NG tube. Telemetry leads overlie the thorax. IMPRESSION: No significant interval change of bilateral interstitial and airspace opacities.
[2018-12-09 11:41] VITALS: BP 104/55
--- NOTE | 2018-12-09 11:47 | General Progress Note ---
Assessment/Plan Assessment/Plan 68 year old male with PMH of DM, ESRD on HD (MWF - Last 12/03/18), s/p BKA, L chronic pressure ulcer and PVD was transferred from SNF for acute onset of shortness of breath and altered mental status, admitted for sepsis likely 2/2 R foot infection vs UTI vs PNA Plan #Severe Sepsis 2/2 R foot infection vs UTI vs PNA #Acute encephalopathy 2/2 infectious process - improved #Acute hypoxemic and hypercapnic respiratory failure 2/2 PNA -Cont vancomycin and meropenen -Transitioned from BiPAP to Venturi mask with adequate saturations -ABG PRN -Pulmonary consult noted, will d/w Pulm re oxygen requirements -ID consult noted, cont broad spectrum IV abx -Surgery consult appreciated, rec amputation, patient declines -MRI right foot and ankle: +osteomyelitis and fluid collection likely abscess -Vascular and podiatry consulted -daily care per surgery #Leukocytosis likly 2/2 infection vs leukomoid infection -28 >21 > 24>23 -Flow cytometry pending -Hematology consult appreciated #Dysphagia -NG tube placed -tube feeds restarted at 10cc/hr given high residuals, blood sugars in the 70s -GI consult for high residuals #DM now hypoglycemic -hypoglycemia likley 2/2 sepsis -hold antiDM medications -FSG Q6hrs -Currently on min tube feeds -Monitor respiratory status #ESRD on HD (MWF) via R arm fistula #HyperKalemia #HypoNA -no signs of fluid overload -nephrology consult appreciated -CTM electrolytes -HD per renal -Last HD 12/06 Code status with discussion: Patient seemed supportive of a comfort based approach this morning when I spoke with him, and was also coroborated by other ancillary staff (RT, nursing). However, the patient has changed his mind on this before and would still like to speak with his sister who lives in [place], it is unclear if she will be able to enter the [place] to visit him. We will continue to have the dialogue with him, however the pt should not be escalated to higher level of care given he declines amputation. I spent 45 min on this patients care, and 37 min was dedicated to counseling and /or care coordination Time of note may not represent time of encounter Subjective Date patient seen: Dec 09, 2018 Time patient seen: 11:44 ROS Limited/Unobtainable: Yes Allergies: Coded Allergies: PENICILLINS (Unverified Allergy, Mild, 12/05/18) PHENYTOIN (Verified Allergy, Unknown, 10/17/18) Uncoded Allergies: PENICILLIN (Allergy, Mild, 11/17/18) Subjective Patient on Venturi mask with adequate sats, had high residuals again last night from tube feeds, declines amputation. Pt unable to voice any other complaints. Objective Last 24 Hour Vital Signs Date Time Temp Pulse Resp B/P (MAP) Pulse Ox O2 Delivery O2 Flow Rate FiO2 12/09/18 11:41 98.1 70 28 104/55 (71) 96 12/09/18 08:00 67 12/09/18 08:00 Venturi Mask 8.0 12/09/18 08:00 8.0 40 12/09/18 07:45 97.3 66 24 104/68 (80) 92 12/09/18 06:58 66 17 Venturi Mask 14.0 55 12/09/18 06:58 99 Venturi Mask 14.0 55 12/09/18 06:58 Venturi Mask 14.0 55 12/09/18 04:00 Venturi Mask 8.0 12/09/18 04:00 8.0 40 12/09/18 04:00 97.4 71 24 94/57 (69) 96 12/09/18 04:00 70 12/09/18 00:00 Venturi Mask 8.0 12/09/18 00:00 8.0 40 12/09/18 00:00 97.8 72 20 111/65 (80) 96 12/09/18 00:00 73 12/08/18 20:00 97.8 83 20 136/71 (92) 100 12/08/18 20:00 81 12/08/18 20:00 8.0 40 12/08/18 20:00 Venturi Mask 8.0 12/08/18 19:36 98 Venturi Mask 14.0 55 12/08/18 19:36 Venturi Mask 14.0 55 12/08/18 19:35 78 18 Venturi Mask 14.0 55 12/08/18 16:00 8.0 40 12/08/18 16:00 Venturi Mask 8.0 12/08/18 16:00 98.4 67 20 114/58 (76) 100 3/16/19 16:00 64 12/08/18 12:52 101/63 12/08/18 12:00 8.0 40 12/08/18 12:00 97.3 64 24 101/63 (76) 98 12/08/18 12:00 Venturi Mask 8.0 12/08/18 12:00 64 Intake and Output 12/08/18 12/09/18 19:00 07:00 Intake Total 180 ml 160 ml Output Total 2000 ml Balance -1820 ml 160 ml Free Water 130 ml 70 ml IV Total 55 ml Tube Feeding 50 ml 35 ml Hemodialysis UF 2000 ml # Bowel Movements 4 2 Height (Feet): 5 Height (Inches): 4.00 Weight (Pounds): 136 Objective General: alert, cooperative, no distress, appears older than stated age Head: normocephalic, without obvious abnormality, atraumatic Eyes: conjunctivae/corneas clear. PERRL, EOM's intact Throat: lips, mucosa, and tongue normal. MMM Neck: supple, symmetrical, trachea midline, and no JVD Lungs: clear to auscultation bilaterally Heart: regular rate and rhythm, S1, S2 normal, no murmur, click, rub or gallop Abdomen: soft, non-tender, non-distended, bowel sounds normal; no masses or organomegaly Extremities: L BKA, R foot in dressing Skin: skin color, texture, turgor normal; no rashes or lesions Neurologic: lethargic, slow to respond Pam Andrade MD Dec 09, 2018 11:47
[2018-12-09] MEDS: Nitroglycerin Patch 0.4mg TDERMAL SCH (12:06)
[2018-12-09] MEDS ORDERED: Metoclopramide 10mg/2ml Inj IVP PRN (12:15)
--- NOTE | 2018-12-09 13:55 | Pulmonology Progress Note ---
Assessment/Plan Problems: (1) Acute respiratory failure (2) Severe sepsis (3) ESRF (end stage renal failure) (4) Diabetes mellitus (5) Decubitus ulcer of right heel, stage 4 (6) Acute metabolic encephalopathy (7) S/P BKA (below knee amputation) Assessment/Plan afebrile wbc still high sputum has Staph aureus, MRSA on Meropenen and Vancomycin Urine has ESBL imaging from decubiti ulcers are pending off bipap, tolerating nasal cannula dvt prophylaxis. aspiration precaution f/u cultures Subjective ROS Limited/Unobtainable: No Interval Events: somnolent Constitutional: Reports: no symptoms Allergies: Coded Allergies: PENICILLINS (Unverified Allergy, Mild, 12/05/18) PHENYTOIN (Verified Allergy, Unknown, 10/17/18) Uncoded Allergies: PENICILLIN (Allergy, Mild, 11/17/18) Objective Last 24 Hour Vital Signs Date Time Temp Pulse Resp B/P (MAP) Pulse Ox O2 Delivery O2 Flow Rate FiO2 12/09/18 12:06 104/55 12/09/18 12:00 71 12/09/18 12:00 8.0 40 12/09/18 12:00 Venturi Mask 8.0 12/09/18 11:41 98.1 70 28 104/55 (71) 96 12/09/18 08:00 67 12/09/18 08:00 Venturi Mask 8.0 12/09/18 08:00 8.0 40 12/09/18 07:45 97.3 66 24 104/68 (80) 92 12/09/18 06:58 66 17 Venturi Mask 14.0 55 12/09/18 06:58 99 Venturi Mask 14.0 55 12/09/18 06:58 Venturi Mask 14.0 55 12/09/18 04:00 Venturi Mask 8.0 12/09/18 04:00 8.0 40 12/09/18 04:00 97.4 71 24 94/57 (69) 96 12/09/18 04:00 70 12/09/18 00:00 Venturi Mask 8.0 12/09/18 00:00 8.0 40 12/09/18 00:00 97.8 72 20 111/65 (80) 96 12/09/18 00:00 73 12/08/18 20:00 97.8 83 20 136/71 (92) 100 12/08/18 20:00 81 12/08/18 20:00 8.0 40 12/08/18 20:00 Venturi Mask 8.0 12/08/18 19:36 98 Venturi Mask 14.0 55 12/08/18 19:36 Venturi Mask 14.0 55 12/08/18 19:35 78 18 Venturi Mask 14.0 55 12/08/18 16:00 8.0 40 12/08/18 16:00 Venturi Mask 8.0 12/08/18 16:00 98.4 67 20 114/58 (76) 100 12/08/18 16:00 64 Intake and Output 12/08/18 12/09/18 19:00 07:00 Intake Total 180 ml 160 ml Output Total 2000 ml Balance -1820 ml 160 ml Free Water 130 ml 70 ml IV Total 55 ml Tube Feeding 50 ml 35 ml Hemodialysis UF 2000 ml # Bowel Movements 4 2 General Appearance: WD/WN HEENT: normocephalic, atraumatic Respiratory/Chest: chest wall non-tender, crackles/rales Cardiovascular: normal peripheral pulses, normal rate Abdomen: normal bowel sounds, soft, non tender Genitourinary: normal external genitalia Extremities: no cyanosis, no clubbing 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 Current Medications Medications (Trade) Dose Ordered Sig/Ronald Route PRN Reason Start Time Stop Time Status Last Admin Dose Admin Acetaminophen/ Hydrocodone Bitart ([place] 5/325) 1 tab Q4H PRN ORAL For Severe Pain 12/05/18 10:00 12/12/18 09:57 Aspirin (ASA) 81 mg DAILY NG 12/08/18 09:00 01/07/19 08:59 12/09/18 08:43 Dextrose (Dextrose 50%) 25 ml Q30M PRN IV Hypoglycemia 12/04/18 22:45 01/03/19 22:44 Dextrose (Dextrose 50%) 50 ml Q30M PRN IV Hypoglycemia 12/04/18 22:45 01/03/19 22:44 12/09/18 05:17 Heparin Sodium (Porcine) (Heparin 5000 units/ml) 5,000 units EVERY 12 HOURS SUBQ 12/05/18 09:00 01/04/19 08:59 12/09/18 08:39 Lansoprazole (Prevacid) 30 mg DAILY NG 12/09/18 09:00 01/08/19 08:59 12/09/18 08:37 Meropenem 500 mg/ Sodium Chloride 55 ml @ 110 mls/hr Q24H IVPB 12/05/18 21:00 12/10/18 20:59 12/08/18 21:32 Metoclopramide HCl (Reglan) 10 mg Q6H PRN IVP Nausea & Vomiting 12/09/18 12:15 01/08/19 12:14 Nitroglycerin (Ntg) 1 patch Q24H TDERMAL 12/05/18 13:00 01/04/19 12:59 12/07/18 13:03 Povidone Iodine (Betadine María) 1 applic QHS TOPIC 12/06/18 21:00 01/05/19 20:59 12/08/18 20:02 Pyridoxine HCl (Vitamin B6) 25 mg DAILY NG 12/08/18 09:00 01/07/19 08:59 12/09/18 08:38 Sevelamer Carbonate (Renvela) 800 mg THREE TIMES A DAY NG 12/08/18 09:00 01/07/19 08:59 12/09/18 12:26 Tramadol HCl (Ultram) 50 mg Q6H PRN ORAL For Mod Pain 12/05/18 09:59 12/12/18 09:58 Vancomycin HCl (Vanco rx to dose) 1 ea DAILY PRN MISC Per rx protocol 12/09/18 12:30 01/08/19 12:29 Vancomycin HCl 1 gm/Dextrose 275 ml @ 183.708 mls/hr ONCE ONCE IVPB 12/09/18 14:00 12/09/18 15:29 Vitamin B Complex/ Vit C/Folic Acid (Nephrovite) 1 tab DAILY NG 12/08/18 09:00 01/07/19 08:59 12/09/18 08:38 Tamia Lerma MD Dec 09, 2018 13:55
[2018-12-09] MEDS ORDERED: Vancomycin 1gm/D5W 275ml IVPB ONE ×2 (14:00)
--- NOTE | 2018-12-09 14:38 | Infectious Diseases Prog Note ---
Assessment/Plan Assessment/Plan ASSESSMENT AND PLAN: 1. right ankle/foot/leg infected wound/gangrene/necrosis/?ischemia/osteomyelitis , sepsis, esbl e.coli uti, MRSA pna, leukocytosis - vancomycin and meropenem - monitor labs and chest x-ray - surgery, podiatry and vascular surgery f/u - await decision on amputation, refusing for now - notes reviewed - d/w RN - d/w pharmacy about abx 2. The patient has end-stage renal disease on hemodialysis. He has a shunt. No hemodialysis line. 3. History of UTI. 4. Anemia. 5. Elevated creatinine. 6. Renal failure. 7. The patient has history of diabetes. 8. Hypertension. 9. COPD. 10. CHF. 11. Hypertension and diabetes treatment per primary. 12. Allergies to penicillin and phenytoin, tolerates meropenem. 13. Social history is negative for smoking, alcohol, or drug abuse. 14. Family history is noncontributory. 15. MAR was noted. 16. Case discussed with RN. 17. Continue treatment per primary consultants. 18. Case communicated with Dr. Frieda Clay. 19. Orders were noted and entered. 20. Continue treatment per primary consultants. 21. mrsa and vre colonization Subjective Constitutional: Reports: fatigue, other - + sob and breathin mask; Denies: fever HEENT: Reports: congestion Respiratory: Reports: shortness of breath Cardiovascular: Denies: chest pain, other - no pressors Gastrointestinal/Abdominal: Denies: nausea, vomiting, diarrhea Genitourinary: Reports: other - no negro, + hd Neurologic: Reports: weakness, other - responsive Psychiatric: Reports: other - na Skin: Reports: other - wounds covered ; Denies: rash Endocrine: Reports: other - na Hematologic: Denies: bleeding Musculoskeletal: Reports: pain - controlled Allergies: Coded Allergies: PENICILLINS (Unverified Allergy, Mild, 12/05/18) PHENYTOIN (Verified Allergy, Unknown, 10/17/18) Uncoded Allergies: PENICILLIN (Allergy, Mild, 11/17/18) Objective Vital Signs Last 24 Hour Vital Signs Date Time Temp Pulse Resp B/P (MAP) Pulse Ox O2 Delivery O2 Flow Rate FiO2 12/09/18 12:06 104/55 12/09/18 12:00 71 12/09/18 12:00 8.0 40 12/09/18 12:00 Venturi Mask 8.0 12/09/18 11:41 98.1 70 28 104/55 (71) 96 12/09/18 08:00 67 12/09/18 08:00 Venturi Mask 8.0 12/09/18 08:00 8.0 40 12/09/18 07:45 97.3 66 24 104/68 (80) 92 12/09/18 06:58 66 17 Venturi Mask 14.0 55 12/09/18 06:58 99 Venturi Mask 14.0 55 12/09/18 06:58 Venturi Mask 14.0 55 12/09/18 04:00 Venturi Mask 8.0 12/09/18 04:00 8.0 40 12/09/18 04:00 97.4 71 24 94/57 (69) 96 12/09/18 04:00 70 12/09/18 00:00 Venturi Mask 8.0 12/09/18 00:00 8.0 40 12/09/18 00:00 97.8 72 20 111/65 (80) 96 12/09/18 00:00 73 12/08/18 20:00 97.8 83 20 136/71 (92) 100 12/08/18 20:00 81 12/08/18 20:00 8.0 40 12/08/18 20:00 Venturi Mask 8.0 12/08/18 19:36 98 Venturi Mask 14.0 55 12/08/18 19:36 Venturi Mask 14.0 55 12/08/18 19:35 78 18 Venturi Mask 14.0 55 12/08/18 16:00 8.0 40 12/08/18 16:00 Venturi Mask 8.0 12/08/18 16:00 98.4 67 20 114/58 (76) 100 12/08/18 16:00 64 Height (Feet): 5 Height (Inches): 4.00 Weight (Pounds): 136 General Appearance: other - responsive, + bm HEENT: normocephalic, atraumatic, anicteric Respiratory/Chest: accessory muscle use, crackles/rales, rhonchi - bilaterally Cardiovascular: normal rate, regular rhythm, no gallop/murmur, no JVD Abdomen: normal bowel sounds, soft, non tender, no organomegaly, non distended Genitourinary: other - no negro Extremities: other - wounds - covered Skin: no rash 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 Bilateral interstitial and airspace opacities appear similar to the previous study. Right arm and innominate venous stents are again demonstrated. MRI - right ankle - Impression: Marrow edema, suspicious for osteomyelitis, involving the posterior calcaneus, talus, middle and lateral cuneiforms Multiple fluid collections versus very edematous phlegmon, as described. These could represent abscesses Evidence of heel ulceration and marked thinning of the skin, consistent with stated clinical history of ulceration and necrotic wound Chest x-ray - 12/09/18 - COMPARISON: Chest x-ray dated 12/07/18 FINDINGS: Lungs: No significant interval change of bilateral interstitial and airspace opacities. Pleural space: Unremarkable. The costophrenic angles are sharp. No visible pneumothorax. Heart: Unremarkable. No cardiomegaly. Mediastinum: Unremarkable. Bones/joints: Degenerative changes throughout the visualized spine and shoulder joints. Vasculature: Unchanged positioning of the right arm and innominate vein stents. Atherosclerotic calcifications within the aortic arch. Tubes, lines and devices: Stable positioning of the NG tube. Telemetry leads overlie the thorax. IMPRESSION: No significant interval change of bilateral interstitial and airspace opacities. Microbiology Date/Time Source Procedure Growth Status 12/05/18 01:43 Blood Blood Culture - Preliminary NO GROWTH AFTER 72 HOURS Resulted 12/05/18 15:00 Sputum Gram Stain - Final Complete 12/05/18 15:00 Sputum Culture - Final Staphylococcus Aureus - Mrsa Cynthia Albicans Complete 12/05/18 11:30 Urine,Clean Catch Urine Culture - Final Escherichia Coli - Esbl Complete 12/04/18 20:55 Rectum VRE Culture - Final Enterococcus Faecium - Vre Complete Labs Test 12/06/18 18:30 12/07/18 10:35 12/08/18 06:54 Stool Occult Blood Positive (NEGATIVE) White Blood Count 24.0 K/UL (4.8-10.8) 23.3 K/UL (4.8-10.8) Red Blood Count 2.36 M/UL (4.70-6.10) 2.40 M/UL (4.70-6.10) Hemoglobin 7.6 G/DL (14.2-18.0) 7.7 G/DL (14.2-18.0) Hematocrit 24.9 % (42.0-52.0) 25.4 % (42.0-52.0) Mean Corpuscular Volume 106 FL (80-99) 106 FL (80-99) Mean Corpuscular Hemoglobin 32.2 PG (27.0-31.0) 32.0 PG (27.0-31.0) Mean Corpuscular Hemoglobin Concent 30.5 G/DL (32.0-36.0) 30.2 G/DL (32.0-36.0) Red Cell Distribution Width 19.4 % (11.6-14.8) 19.8 % (11.6-14.8) Platelet Count 230 K/UL (150-450) 237 K/UL (150-450) Mean Platelet Volume 9.6 FL (6.5-10.1) 10.8 FL (6.5-10.1) Neutrophils (%) (Auto) % (45.0-75.0) % (45.0-75.0) Lymphocytes (%) (Auto) % (20.0-45.0) % (20.0-45.0) Monocytes (%) (Auto) % (1.0-10.0) % (1.0-10.0) Eosinophils (%) (Auto) % (0.0-3.0) % (0.0-3.0) Basophils (%) (Auto) % (0.0-2.0) % (0.0-2.0) Differential Total Cells Counted 100 100 Neutrophils % (Manual) 81 % (45-75) 91 % (45-75) Lymphocytes % (Manual) 3 % (20-45) 2 % (20-45) Monocytes % (Manual) 5 % (1-10) 6 % (1-10) Eosinophils % (Manual) 0 % (0-3) 1 % (0-3) Basophils % (Manual) 0 % (0-2) 0 % (0-2) Band Neutrophils 11 % (0-8) 0 % (0-8) Platelet Estimate Adequate Adequate Platelet Morphology Normal Normal Hypochromasia 3+ 3+ Anisocytosis 2+ 2+ Macrocytosis 2+ 1+ Target Cells 3+ Erythrocyte Sedimentation Rate 98 MM/HR (0-20) Reticulocyte Count 3.9 % (0.0-2.0) Prothrombin Time 13.6 SEC (9.30-11.50) Prothromb Time International Ratio 1.3 (0.9-1.1) Activated Partial Thromboplast Time 35 SEC (23-33) Sodium Level 135 MMOL/L (136-145) 134 MMOL/L (136-145) Potassium Level 4.6 MMOL/L (3.5-5.1) 4.8 MMOL/L (3.5-5.1) Chloride Level 101 MMOL/L (98-107) 101 MMOL/L (98-107) Carbon Dioxide Level 27 MMOL/L (21-32) 27 MMOL/L (21-32) Anion Gap 7 mmol/L (5-15) 6 mmol/L (5-15) Blood Urea Nitrogen 49 mg/dL (7-18) 60 mg/dL (7-18) Creatinine 3.7 MG/DL (0.55-1.30) 4.1 MG/DL (0.55-1.30) Estimat Glomerular Filtration Rate 16.5 mL/min (>60) 14.7 mL/min (>60) Glucose Level 67 MG/DL (74-106) 66 MG/DL (74-106) Uric Acid 5.1 MG/DL (2.6-7.2) Calcium Level 8.9 MG/DL (8.5-10.1) 9.1 MG/DL (8.5-10.1) Phosphorus Level 4.9 MG/DL (2.5-4.9) 5.6 MG/DL (2.5-4.9) Magnesium Level 2.1 MG/DL (1.8-2.4) 2.1 MG/DL (1.8-2.4) Iron Level 19 ug/dL (50-175) Total Iron Binding Capacity 72 ug/dL (250-450) Percent Iron Saturation 26 % (15-50) Unsaturated Iron Binding 53 ug/dL (112-346) Total Bilirubin 3.3 MG/DL (0.2-1.0) 3.1 MG/DL (0.2-1.0) Direct Bilirubin 2.8 MG/DL (0.0-0.3) 2.5 MG/DL (0.0-0.3) Aspartate Amino Transf (AST/SGOT) 26 U/L (15-37) 21 U/L (15-37) Alanine Aminotransferase (ALT/SGPT) 10 U/L (12-78) 9 U/L (12-78) Alkaline Phosphatase 173 U/L (46-116) 167 U/L (46-116) Lactate Dehydrogenase 201 U/L (81-234) Troponin I 0.062 ng/mL (0.000-0.056) Pro-B-Type Natriuretic Peptide > 65161 pg/mL (0-125) Total Protein 7.2 G/DL (6.4-8.2) 7.7 G/DL (6.4-8.2) Albumin 1.8 G/DL (3.4-5.0) 1.9 G/DL (3.4-5.0) Globulin 5.4 g/dL 5.8 g/dL Albumin/Globulin Ratio 0.3 (1.0-2.7) 0.3 (1.0-2.7) Carcinoembryonic Antigen 1.4 ng/mL (0.0-4.7) Current Medications Medications (Trade) Dose Ordered Sig/Ronald Route PRN Reason Start Time Stop Time Status Last Admin Dose Admin Acetaminophen/ Hydrocodone Bitart ([place] 5/325) 1 tab Q4H PRN ORAL For Severe Pain 12/05/18 10:00 12/12/18 09:57 Aspirin (ASA) 81 mg DAILY NG 12/08/18 09:00 01/07/19 08:59 12/09/18 08:43 Dextrose (Dextrose 50%) 25 ml Q30M PRN IV Hypoglycemia 12/04/18 22:45 01/03/19 22:44 Dextrose (Dextrose 50%) 50 ml Q30M PRN IV Hypoglycemia 12/04/18 22:45 01/03/19 22:44 12/09/18 05:17 Heparin Sodium (Porcine) (Heparin 5000 units/ml) 5,000 units EVERY 12 HOURS SUBQ 12/05/18 09:00 01/04/19 08:59 12/09/18 08:39 Lansoprazole (Prevacid) 30 mg DAILY NG 12/09/18 09:00 01/08/19 08:59 12/09/18 08:37 Meropenem 500 mg/ Sodium Chloride 55 ml @ 110 mls/hr Q24H IVPB 12/05/18 21:00 12/10/18 20:59 12/08/18 21:32 Metoclopramide HCl (Reglan) 10 mg Q6H PRN IVP Nausea & Vomiting 12/09/18 12:15 01/08/19 12:14 Nitroglycerin (Ntg) 1 patch Q24H TDERMAL 12/05/18 13:00 01/04/19 12:59 12/07/18 13:03 Povidone Iodine (Betadine María) 1 applic QHS TOPIC 12/06/18 21:00 01/05/19 20:59 12/08/18 20:02 Pyridoxine HCl (Vitamin B6) 25 mg DAILY NG 12/08/18 09:00 01/07/19 08:59 12/09/18 08:38 Sevelamer Carbonate (Renvela) 800 mg THREE TIMES A DAY NG 12/08/18 09:00 01/07/19 08:59 12/09/18 12:26 Tramadol HCl (Ultram) 50 mg Q6H PRN ORAL For Mod Pain 12/05/18 09:59 12/12/18 09:58 Vancomycin HCl (Vanco rx to dose) 1 ea DAILY PRN MISC Per rx protocol 12/09/18 12:30 01/08/19 12:29 Vancomycin HCl 1 gm/Dextrose 275 ml @ 183.708 mls/hr ONCE ONCE IVPB 12/09/18 14:00 12/09/18 15:29 Vitamin B Complex/ Vit C/Folic Acid (Nephrovite) 1 tab DAILY NG 12/08/18 09:00 01/07/19 08:59 12/09/18 08:38 Anshu Munguia MD Dec 09, 2018 14:38
[2018-12-09 16:00] VITALS: BP 115/72
--- NOTE | 2018-12-09 18:14 | Nephrology Progress Note ---
Assessment/Plan Problem List: (1) ESRF (end stage renal failure) (2) Leukocytosis Assessment: sepsis (3) CHF (congestive heart failure) (4) Acute respiratory failure (5) Hyperbilirubinemia Assessment admitted with sepsis and shortness of breath (1) ESRD (end stage renal disease) right arm fistula (2) Possible Fluid overload, unspecified (3) h/o Bradycardia (4) Anemia (5) h/o Pleural effusion (6) Elevated troponin (7) Allergy Dialntin & PCN (8) Elevated Bili Plan was on bipap , now is on O2 cannula HD next 12/10 adjust BP meds 2D Echo 55% EjFx stop beta blockers for low HR hydralazin and procardia as needed reviewe CXR : Pneumonia per consultants Subjective ROS Limited/Unobtainable: No Constitutional: Reports: malaise, weakness Objective Objective Last 24 Hour Vital Signs Date Time Temp Pulse Resp B/P (MAP) Pulse Ox O2 Delivery O2 Flow Rate FiO2 12/09/18 16:00 Venturi Mask 8.0 12/09/18 16:00 8.0 40 12/09/18 16:00 97.9 75 24 115/72 (86) 94 12/09/18 12:06 104/55 12/09/18 12:00 71 12/09/18 12:00 8.0 40 12/09/18 12:00 Venturi Mask 8.0 12/09/18 11:41 98.1 70 28 104/55 (71) 96 12/09/18 08:00 67 12/09/18 08:00 Venturi Mask 8.0 12/09/18 08:00 8.0 40 12/09/18 07:45 97.3 66 24 104/68 (80) 92 12/09/18 06:58 66 17 Venturi Mask 14.0 55 12/09/18 06:58 99 Venturi Mask 14.0 55 12/09/18 06:58 Venturi Mask 14.0 55 12/09/18 04:00 Venturi Mask 8.0 12/09/18 04:00 8.0 40 12/09/18 04:00 97.4 71 24 94/57 (69) 96 12/09/18 04:00 70 12/09/18 00:00 Venturi Mask 8.0 12/09/18 00:00 8.0 40 12/09/18 00:00 97.8 72 20 111/65 (80) 96 12/09/18 00:00 73 12/08/18 20:00 97.8 83 20 136/71 (92) 100 12/08/18 20:00 81 12/08/18 20:00 8.0 40 12/08/18 20:00 Venturi Mask 8.0 12/08/18 19:36 98 Venturi Mask 14.0 55 12/08/18 19:36 Venturi Mask 14.0 55 12/08/18 19:35 78 18 Venturi Mask 14.0 55 Intake and Output 12/08/18 12/09/18 19:00 07:00 Intake Total 180 ml 160 ml Output Total 2000 ml Balance -1820 ml 160 ml Free Water 130 ml 70 ml IV Total 55 ml Tube Feeding 50 ml 35 ml Hemodialysis UF 2000 ml # Bowel Movements 4 2 Height (Feet): 5 Height (Inches): 4.00 Weight (Pounds): 136 General Appearance: no apparent distress, lethargic Cardiovascular: normal rate Respiratory/Chest: decreased breath sounds Abdomen: soft Alessandro Price MD Dec 09, 2018 18:14
--- NOTE | 2018-12-09 19:27 | NUR ---
HAND-OFF: Report given to SONG Zamora. Pt in stable condition.
--- NOTE | 2018-12-09 19:30 | NUR ---
NURSE NOTES: Received patient and the change of shift from out going nurse Harlan RN. Obtunded and is on NGT feeding, Nephro 20 ml/hr and no residual. Saline lock 20 gauge at left antecubital and no s/ s of infection or redness noted. HOB in 45 degree. Patient is on venturi mask 40% and oxygen saturation 92% and HR 73.
[2018-12-09 20:00] VITALS: BP 109/71
[2018-12-09] MEDS ORDERED: NS 275ml ONE (20:01)
[2018-12-09] MEDS ORDERED: NS 500ML ONE (20:01)
--- NOTE | 2018-12-09 21:30 | Consultation ---
DATE OF CONSULTATION: 12/09/2018 CONSULTING PHYSICIAN: Antione Salomon M.D. CHIEF COMPLAINT: Elevated residuals, anemia, and diarrhea. HISTORY OF PRESENT ILLNESS: Most of history per chart. This is a 68-year-old male with numerous medical problems, which I would list them in a second, was admitted to the hospital with shortness of breath, respiratory distress, cannot give any history. The patient is dialysis patient. The patient was found to be anemic, have high elevated residuals and diarrhea, so GI consult requested for evaluation. PAST MEDICAL HISTORY: 1. Diabetes. 2. End-stage renal disease, on hemodialysis. 3. Dysphagia, requiring G-tube placement. 4. Peripheral vascular disease. ALLERGIES: Penicillin. MEDICATIONS: Please see medication reconciliation list. SOCIAL HISTORY: Currently lives in a skilled facility. No recent history of tobacco, alcohol, or drug abuse. FAMILY HISTORY: Noncontributory. REVIEW OF SYSTEMS: Limited. PHYSICAL EXAMINATION: VITAL SIGNS: Temperature is 98, pulse 70, respirations 28, blood pressure is 104/55. HEENT: Normocephalic and atraumatic. Mild pale conjunctivae. NECK: Supple. No obvious evidence of lymphadenopathy. CARDIOVASCULAR: Regular rhythm. Plus S1 and S2. LUNGS: Decreased breath sounds bilaterally on supine exam. ABDOMEN: Soft. Mildly distended. G-tube in place. Bowel sounds are hypoactive. No rebound. No guarding. No peritoneal sign. EXTREMITIES: No cyanosis. No clubbing. LABORATORY DATA: Sodium 134, potassium 4.8, BUN is 60, creatinine 4.1. White count is 23,000, hemoglobin 7.7, platelet count is 237. ASSESSMENT AND PLAN: 1. Elevated residuals. 2. Dysphagia with G-tube. 3. Anemia microcytic. 4. Diarrhea. PLAN: Anemia workup. Send stool for C. diff. Start the patient on Reglan 10 mg IV q.6h. for elevated residual. Increase tube feeding as tolerated for a total of 40 mL an hour. We will monitor on daily basis and make further recommendation. Also we ordered a KUB, which we will follow. I want to thank, Dr. Andrade, for this kind referral. Antione Olimpia Salomon DR: SHARON JOB#: [id number] CC: Pam Andrade M.D.; Fax#: [phone]
[2018-12-09] MEDS: Betadine 4oz Bottle TOPIC SCH (22:05)
[2018-12-09] MEDS: Meropenem 500 MG in NS 55 ML IVPB SCH (22:08)
--- NOTE | 2018-12-09 23:05 | General Progress Note ---
Progress Note Progress Note Asked Dr Michaels to eval patient Extensive right foot gangrene Mild knee contracture Hx of left leg BKA (hx of extensive left leg procedures--bypass/ angiogram BKA then revision by surgeons at [facility]) Calcific multilevel occlusive PAD Intact femorals absent pop and right pedal dopplers Lethargic-encephalopathy ESRD on hd via right arm av shunt DM Non ambulatory Rec Right leg above knee amputation---right leg is not salvageable PEG feeding & optimize nutrition HD via right arm av shunt Rob Urban MD Dec 09, 2018 23:05
--- NOTE | 2018-12-09 23:15 | General Progress Note ---
Assessment/Plan Assessment/Plan ASSESSMENT/RECS: # Leukocytosis/Elevated white blood cell count, unspecified likely related to underlying stress reaction, smoking, or underlying infection (especially if bandemia is noted) --> have reviewed peripheral smear and bandemia/neutrophilia noted --> esr and crp elevated on prior labs --> continue on meropenem and vancomycin started by ID team --> monitor for resolution 28k-->21k-->24 --> flow cytometry pending # Anemia of chronic disease due to underlying chronic medical issues, multifactorial --> Anemia workup has been reviewed, Ferritin 1678 --> No evidence of hemolysis is noted, peripheral smear has been reviewed. --> Hgb goal >7. Transfuse prn. --> Epogen or iron at this time is not particularly indicated --> Medications have been reviewed # Coagulopathy with elevated inr --> consider repeat in one week --> if persists consider mixing study # Sepsis, elevated white count --> on meropenem and vancomycin, pending workup for sepsis --> appreciate ID recs # End-stage renal disease on hemodialysis --> appreciate nephro recs # R foot infection vs UTI vs PNA --> appreciate ID recs # Acute hypercapnic respiratory failure , Cont BiPAP, --> appreciate pulm recs The timing of this note does not necessarily reflect the time of the patient was seen. Greatly appreciate consultation! Subjective Allergies: Coded Allergies: PENICILLINS (Unverified Allergy, Mild, 12/05/18) PHENYTOIN (Verified Allergy, Unknown, 10/17/18) Uncoded Allergies: PENICILLIN (Allergy, Mild, 11/17/18) Subjective 12/07: seen by bedside, leukocytosis trending up at 24, on abx, hgb 7.6, no events 3.17: Pt is resting in bed, wbc remains elevated, Objective Last 24 Hour Vital Signs Date Time Temp Pulse Resp B/P (MAP) Pulse Ox O2 Delivery O2 Flow Rate FiO2 12/09/18 20:00 98.6 73 32 109/71 (84) 92 12/09/18 20:00 8.0 40 12/09/18 20:00 Venturi Mask 8.0 12/09/18 20:00 73 12/09/18 16:00 Venturi Mask 8.0 12/09/18 16:00 76 12/09/18 16:00 8.0 40 12/09/18 16:00 97.9 75 24 115/72 (86) 94 12/09/18 12:06 104/55 12/09/18 12:00 71 12/09/18 12:00 8.0 40 12/09/18 12:00 Venturi Mask 8.0 12/09/18 11:41 98.1 70 28 104/55 (71) 96 12/09/18 08:00 67 12/09/18 08:00 Venturi Mask 8.0 12/09/18 08:00 8.0 40 12/09/18 07:45 97.3 66 24 104/68 (80) 92 12/09/18 06:58 66 17 Venturi Mask 14.0 55 12/09/18 06:58 99 Venturi Mask 14.0 55 12/09/18 06:58 Venturi Mask 14.0 55 12/09/18 04:00 Venturi Mask 8.0 12/09/18 04:00 8.0 40 12/09/18 04:00 97.4 71 24 94/57 (69) 96 12/09/18 04:00 70 12/09/18 00:00 Venturi Mask 8.0 12/09/18 00:00 8.0 40 12/09/18 00:00 97.8 72 20 111/65 (80) 96 12/09/18 00:00 73 Intake and Output 12/08/18 12/09/18 19:00 07:00 Intake Total 180 ml 160 ml Output Total 2000 ml Balance -1820 ml 160 ml Free Water 130 ml 70 ml IV Total 55 ml Tube Feeding 50 ml 35 ml Hemodialysis UF 2000 ml # Bowel Movements 4 2 Laboratory Tests 12/09/18 20:45: C-Reactive Protein, Quantitative 27.9H Height (Feet): 5 Height (Inches): 4.00 Weight (Pounds): 136 Objective PHYSICAL EXAMINATION: VITAL SIGNS: Reviewed saturation 100%, blood pressure 102/63, FiO2 4 liters., venturi mask GENERAL: Alert and responsive No significant shortness of breath noted. HEAD AND NECK: Oral examination, no thrush. Neck is supple. No JVD. HEART: Regular. No gallop or murmur. ABDOMEN: Soft. Positive bowel sounds. Nontender. No organomegaly. LUNGS: Few bilateral rhonchi. No definite rales on exam. Decreased breath sounds. SKIN: No rash. Wounds were reviewed. Vadim Márquez MD Dec 09, 2018 23:15
[2018-12-10] VITALS: BP 101/68
[2018-12-10 04:00] VITALS: BP 102/62
[2018-12-10 05:40] LABS: HEMATOCRIT 23.5 % (42.0-52.0); HEMOGLOBIN 7.3 G/DL (14.2-18.0); MEAN CORPUSCULAR VOLUME 105 FL (80-99); PLATELET COUNT 193 K/UL (150-450); RED BLOOD COUNT 2.24 M/UL (4.70-6.10); RED CELL DISTRIBUTION WIDTH 19.7 % (11.6-14.8); WHITE BLOOD COUNT 21.7 K/UL (4.8-10.8)
[2018-12-10 06:26] LABS: % IRON SATURATION 48 % (15-50); IRON 31 ug/dL (50-175); TOTAL IRON BINDING CAPACITY 65 ug/dL (250-450)
[2018-12-10 06:29] LABS: ALANINE AMINOTRANSFERASE 9 U/L (12-78); ALBUMIN 1.8 G/DL (3.4-5.0); ALBUMIN/GLOBULIN RATIO 0.3 (1.0-2.7); ALKALINE PHOSPHATASE 206 U/L (46-116); ANION GAP 10 mmol/L (5-15); ASPARTATE AMINO TRANSFERASE 30 U/L (15-37); BILIRUBIN,TOTAL 2.2 MG/DL (0.2-1.0); BLOOD UREA NITROGEN 60 mg/dL (7-18); CALCIUM 8.9 MG/DL (8.5-10.1); CARBON DIOXIDE 27 MMOL/L (21-32); CHLORIDE 98 MMOL/L (98-107); CREATININE 3.8 MG/DL (0.55-1.30); FERRITIN 1564 NG/ML (8-388); SODIUM 135 MMOL/L (136-145)
[2018-12-10 06:31] LABS: BILIRUBIN,DIRECT 1.7 MG/DL (0.0-0.3)
[2018-12-10 06:37] LABS: PHOSPHORUS 4.6 MG/DL (2.5-4.9)
--- NOTE | 2018-12-10 07:16 | NUR ---
NURSE NOTES: RECEIVED PATIENT FROM Isabella THOMASON RN. PATIENT IS LYING IN BED, ASLEEP, BUT RESPONSIVE. HOOKED TO CRM TECHNICAL LEAD. ON VENTURI AT 40%. NO SIGNS OF DISTRESS OF THE MOMENT. NGT PN R DARLENE. GTF RUNNING NEPRO AT 30CC/HR. SKIN ALTERATION NOTED. ON OVERLAY MATTRESS. NOTED L AMPUTEE. IV ON L AC G20, SL. R UA AV SHUNT FOR HD. SCHEDULED FOR DIALYSIS TODAY. CALL LIGHT WITHIN REACH. SIDE RAILS UP. BED AT LOWEST POSITION. WILL CONTINUE TO MONITOR.
--- NOTE | 2018-12-10 07:54 | NUR ---
HAND-OFF: Report given to Alaina Crabtree RN.
[2018-12-10 08:00] VITALS: BP 112/71
[2018-12-10] MEDS: Pyridoxine 50mg tab NG SCH (08:27)
[2018-12-10] MEDS: Heparin 5000 units/ml inj SUBQ SCH (08:27)
[2018-12-10] MEDS: Renvela 800mg Pkt NG SCH ×3 (08:27→18:06)
[2018-12-10] MEDS: Nephrovite tab (Rena-Vite) NG SCH (08:27)
[2018-12-10] MEDS: Aspirin Baby 81mg NG SCH (08:27)
--- NOTE | 2018-12-10 09:27 | NUR ---
RADIOLOGY DEPT., ABDOMEN X-RAY DONE.-P.DYE
--- NOTE | 2018-12-10 09:35 | Pulmonology Progress Note ---
Assessment/Plan Problems: (1) Acute respiratory failure (2) Severe sepsis (3) ESRF (end stage renal failure) (4) Diabetes mellitus (5) Decubitus ulcer of right heel, stage 4 (6) Acute metabolic encephalopathy (7) S/P BKA (below knee amputation) Assessment/Plan afebrile wbc slightly lower PRBC ordered sputum has Staph aureus, MRSA on Meropenen and Vancomycin Urine has ESBL imaging from decubiti ulcers are pending off bipap, tolerating nasal cannula dvt prophylaxis. aspiration precaution f/u cultures Subjective ROS Limited/Unobtainable: No Constitutional: Reports: no symptoms HEENT: Repors: no symptoms Respiratory: Reports: no symptoms Allergies: Coded Allergies: PENICILLINS (Unverified Allergy, Mild, 12/05/18) PHENYTOIN (Verified Allergy, Unknown, 10/17/18) Uncoded Allergies: PENICILLIN (Allergy, Mild, 11/17/18) Objective Last 24 Hour Vital Signs Date Time Temp Pulse Resp B/P (MAP) Pulse Ox O2 Delivery O2 Flow Rate FiO2 12/10/18 08:00 8.0 40 12/10/18 08:00 97.0 69 20 112/71 (85) 98 12/10/18 08:00 Venturi Mask 8.0 12/10/18 06:33 95 Venturi Mask 8.0 40 12/10/18 06:33 70 18 Venturi Mask 8.0 40 12/10/18 06:33 Venturi Mask 8.0 40 12/10/18 04:00 71 12/10/18 04:00 98.0 68 32 102/62 (75) 94 12/10/18 04:00 Venturi Mask 8.0 12/10/18 04:00 8.0 40 12/10/18 03:13 70 18 Venturi Mask 8.0 40 12/10/18 03:13 94 Venturi Mask 8.0 40 12/10/18 03:13 Venturi Mask 8.0 40 12/10/18 00:00 72 12/10/18 00:00 98.6 72 32 101/68 (79) 94 12/10/18 00:00 Venturi Mask 8.0 12/09/18 20:00 98.6 73 32 109/71 (84) 92 12/09/18 20:00 8.0 40 12/09/18 20:00 Venturi Mask 8.0 12/09/18 20:00 73 12/09/18 16:00 Venturi Mask 8.0 12/09/18 16:00 76 12/09/18 16:00 8.0 40 12/09/18 16:00 97.9 75 24 115/72 (86) 94 12/09/18 12:06 104/55 12/09/18 12:00 71 12/09/18 12:00 8.0 40 12/09/18 12:00 Venturi Mask 8.0 12/09/18 11:41 98.1 70 28 104/55 (71) 96 Intake and Output 12/09/18 12/10/18 19:00 07:00 Intake Total 590.000 ml 685 ml Balance 590.000 ml 685 ml Free Water 90 ml 350 ml IV Total 275.000 ml 55 ml Tube Feeding 225 ml 280 ml # Bowel Movements 1 General Appearance: cachetic HEENT: normocephalic, atraumatic, anicteric Respiratory/Chest: crackles/rales Cardiovascular: normal peripheral pulses, normal rate Abdomen: normal bowel sounds, soft, non tender Genitourinary: normal external genitalia Extremities: no cyanosis Neurologic/Psychiatric: nurse examiner II-XII grossly normal Microbiology Date/Time Source Procedure Growth Status 12/09/18 12:30 Stool Clostridium difficile Toxin Assay - Final Complete Laboratory Tests 12/09/18 20:45: C-Reactive Protein, Quantitative 27.9H 12/10/18 03:40: White Blood Count 21.7H, Red Blood Count 2.24L, Hemoglobin 7.3L, Hematocrit 23.5L, Mean Corpuscular Volume 105H, Mean Corpuscular Hemoglobin 32.4H, Mean Corpuscular Hemoglobin Concent 30.9L, Red Cell Distribution Width 19.7H, Platelet Count 193, Mean Platelet Volume 9.3, Neutrophils (%) (Auto) , Lymphocytes (%) (Auto) , Monocytes (%) (Auto) , Eosinophils (%) (Auto) , Basophils (%) (Auto) , Differential Total Cells Counted 100, Neutrophils % ( Manual) 92H, Lymphocytes % (Manual) 2L, Monocytes % (Manual) 6, Eosinophils % ( Manual) 0, Basophils % (Manual) 0, Band Neutrophils 0, Platelet Estimate Adequate, Platelet Morphology Normal, Hypochromasia 2+, Anisocytosis 3+, Macrocytosis 1+, Target Cells Rare, Sodium Level 135L, Potassium Level 4.0, Chloride Level 98, Carbon Dioxide Level 27, Anion Gap 10, Blood Urea Nitrogen 60H, Creatinine 3.8H, Estimat Glomerular Filtration Rate 16.0, Glucose Level 72L , Uric Acid 5.4, Calcium Level 8.9, Phosphorus Level 4.6, Magnesium Level 2.2, Iron Level 31L, Total Iron Binding Capacity 65L, Percent Iron Saturation 48, Unsaturated Iron Binding 34L, Ferritin 1564H, Total Bilirubin 2.2H, Direct Bilirubin 1.7H, Aspartate Amino Transf (AST/SGOT) 30, Alanine Aminotransferase ( ALT/SGPT) 9L, Alkaline Phosphatase 206H, Pro-B-Type Natriuretic Peptide > 83612F , Total Protein 7.2, Albumin 1.8L, Globulin 5.4, Albumin/Globulin Ratio 0.3L Current Medications Medications (Trade) Dose Ordered Sig/Ronald Route PRN Reason Start Time Stop Time Status Last Admin Dose Admin Acetaminophen/ Hydrocodone Bitart ([place] 5/325) 1 tab Q4H PRN ORAL For Severe Pain 12/05/18 10:00 12/12/18 09:57 Aspirin (ASA) 81 mg DAILY NG 12/08/18 09:00 01/07/19 08:59 12/10/18 08:27 Dextrose (Dextrose 50%) 25 ml Q30M PRN IV Hypoglycemia 12/04/18 22:45 01/03/19 22:44 Dextrose (Dextrose 50%) 50 ml Q30M PRN IV Hypoglycemia 12/04/18 22:45 01/03/19 22:44 12/09/18 05:17 Heparin Sodium (Porcine) (Heparin 5000 units/ml) 5,000 units EVERY 12 HOURS SUBQ 12/05/18 09:00 01/04/19 08:59 12/09/18 22:07 Lansoprazole (Prevacid) 30 mg DAILY NG 12/09/18 09:00 01/08/19 08:59 12/10/18 08:26 Meropenem 500 mg/ Sodium Chloride 55 ml @ 110 mls/hr Q24H IVPB 12/09/18 21:00 12/14/18 20:59 12/09/18 22:08 Metoclopramide HCl (Reglan) 10 mg Q6H PRN IVP Nausea & Vomiting 12/09/18 12:15 01/08/19 12:14 Nitroglycerin (Ntg) 1 patch Q24H TDERMAL 12/05/18 13:00 01/04/19 12:59 12/07/18 13:03 Povidone Iodine (Betadine María) 1 applic QHS TOPIC 12/06/18 21:00 01/05/19 20:59 12/09/18 22:05 Pyridoxine HCl (Vitamin B6) 25 mg DAILY NG 12/08/18 09:00 01/07/19 08:59 12/10/18 08:27 Sevelamer Carbonate (Renvela) 800 mg THREE TIMES A DAY NG 12/08/18 09:00 01/07/19 08:59 12/10/18 08:27 Tramadol HCl (Ultram) 50 mg Q6H PRN ORAL For Mod Pain 12/05/18 09:59 12/12/18 09:58 Vancomycin HCl (Vanco rx to dose) 1 ea DAILY PRN MISC Per rx protocol 12/09/18 12:30 01/08/19 12:29 Vitamin B Complex/ Vit C/Folic Acid (Nephrovite) 1 tab DAILY NG 12/08/18 09:00 01/07/19 08:59 12/10/18 08:27 Tamia Lerma MD Dec 10, 2018 09:35
--- NOTE | 2018-12-10 10:15 | Diagnostic Imaging Report ---
ndication: Chest pain, sepsis, leukocytosis Technique: IV administration nonionic contrast. Spiral acquisitions obtained from the lung bases to the lung apices. Multiplanar and 3-D reconstructions were generated. Total dose length product 1480.99 mGycm. CTDIvol(s) 7.86,4.9 mGy. Dose reduction achieved using automated exposure control Comparison: none Findings: The pulmonary arteries are well opacified. No intraluminal filling defects or other findings to suggest acute pulmonary embolus demonstrated. The main pulmonary artery is ectatic, measuring 39 mm. No isolated right ventricular dilatation demonstrated. There is generalized four-chamber cardiomegaly. No evidence of thoracic aortic aneurysm or dissection. Normal branching anatomy of the great neck vessels except for common origin of the right brachiocephalic and left common carotid artery. There is a right innominate venous stent. It is unclear whether not this is patent, although there is equivocally some contrast in the lumen and absence of significant chest collaterals suggests patency. The lungs demonstrate bilateral moderate-sized pleural effusions. There is also interstitial septal thickening and groundglass opacity. A cluster of nodular opacities is seen in the lateral right upper lobe, images 18 through 30. Nodular opacities are also seen elsewhere throughout both lungs, measuring up to 6 cm in diameter. Some but not all of these are calcified. There is an area of consolidation and atelectasis of the posterior right lower lobe. Areas of consolidation and or confluent scarring are seen in the lower lobes bilaterally as well as in the inferior right upper lobe. The inferior right upper lobe changes demonstrate considerable calcification so this presumably represents an area of confluent scarring. There is generalized edema of the subcutaneous and mediastinal fat. The included thyroid is grossly unremarkable. There is a nasogastric tube in place. Impression: Negative for evidence of acute pulmonary embolus or other acute thoracic vascular pathology No significant thoracic vascular insufficiency Anasarca, with bilateral moderate pleural effusions, diffuse edema of the mediastinal and subcutaneous fat Interstitial septal thickening and diffuse groundglass opacity, likely pulmonary edema given the above Extensive pulmonary parenchymal disease, as described. This is likely combination of acute infiltrates and atelectasis, as well as confluent scarring Numerous nodular opacities. Suspect postinflammatory, given that many of these are calcified. However, neoplastic etiology of any of the noncalcified nodules cannot be ruled out Ectatic main pulmonary artery, suggestive of although not diagnostic for pulmonary arterial hypertension Cardiomegaly Nasogastric tube Right innominate venous stent, probably patent The CT scanner at [facility] is accredited by the [employer] and the scans are performed using protocols designed to limit radiation exposure to as low as reasonably achievable to attain images of sufficient resolution adequate for diagnostic evaluation.
--- NOTE | 2018-12-10 10:51 | NUR ---
Social Work This Sw received a consult due to patient does not have a POA for decision making. Nursing reported patients baseline is alert/oriented x3, while currently appears lethargic, not easily wakened from a sleep, due to currently receiving dialysis. This SW spoke with Medical Records at [facility], where patient resides, who explained patient was his own decision maker prior. This SW also left a message with listed friend, Margarita Harrison ([phone]); awaiting return call. Sw to speak with patient, when more alert, regarding healthcare wishes and decision maker.
--- NOTE | 2018-12-10 11:01 | NUR ---
RD ASSESSMENT & RECOMMENDATIONS SEE CARE ACTIVITY FOR COMPLETE ASSESSMENT DAILY ESTIMATED NEEDS: Needs based on ESRD on HD, wounds, pulmonary/ 56kg 30-35 kcals/kg 1881-5984 total kcals 1.5-2.0 g protein/kg 84-112 g total protein Fluid per MD, on HD NUTRITION DIAGNOSIS: * Increased kcal and protein needs r/t wound healing and renal dysfunction as evidenced by pt w/ partial thickness wound @ sacrum and necrotic wounds @ Right lower extremity and R foot, ESRD dx, on HD. * Swallowing difficulty R/T dysphagia, respiratory status as evidenced by [employer] recommends NPO at this time, w/ NGT feeds at this time. PO DIET RECOMMENDATIONS: When safe for PO -> RENAL DIET/ texture per [employer] ENTERAL NUTRITION RECOMMENDATIONS: Nepro @ 40ml/hr x 24 hrs + Prosource 1pkt QD to provide 960ml, 1728kcal, 77g + 11g prot, 698ml free water * Maintain NEPRO @40ml/hr as tolerated. * Add Prosource 1pkt daily to meet protein needs * HOB over 30 degrees/ water flush per MD -> W/ elev residuals, rec to lower TF to trophic feeds of 5-10ml/hr. ADDITIONAL RECOMMENDATIONS: 1) Wound healing:w/ GI access, add Sy 1pkt BID 2) Calibrated bedscale wt for accurate CBW- obtain dry wt post HD 3) Monitor lytes closely 4) Monitor BGs, need for hypoglycemic agents- h/o DM . .
--- NOTE | 2018-12-10 11:10 | GI Progress Note ---
Assessment/Plan Problems: (1) Anemia ICD Codes: D64.9 - Anemia, unspecified SNOMED: 805879473 (2) Anxiety disorder ICD Codes: F41.9 - Anxiety disorder, unspecified SNOMED: 443239372 (3) Sepsis ICD Codes: A41.9 - Sepsis, unspecified organism SNOMED: 15652817 (4) Acute respiratory failure ICD Codes: J96.00 - Acute respiratory failure, unspecified whether with hypoxia or hypercapnia SNOMED: 97534990 (5) Diabetes mellitus ICD Codes: E11.9 - Type 2 diabetes mellitus without complications SNOMED: 89413887 Status: unchanged Status Narrative Discussed with Dr. Salomon Assessment/Plan Elevated residuals Dysphasia G-tube Macrocytic anemia Diarrhea C. difficile, negative Occult blood stool positive Elevated LFTs KUB negative G-tube feedings per registered dietitian, increase as tolerated Reglan 10 mg ATC Monitor H&H, PRN transfusions PPI Consider Imodium if patient has persistent diarrhea Follow-up cardiology recommendations for elevated troponin levels We will consider endoscopy and colonoscopy Trend LFTs, obtain abdominal ultrasound The patient was seen and examined at bedside and all new and available data was reviewed in the patients chart. I agree with the above findings, impression and plan. (Patient seen earlier today. Signature stamp does not reflect patient encounter time.). - Antione Salomon MD Subjective Subjective Limited Objective Last 24 Hour Vital Signs Date Time Temp Pulse Resp B/P (MAP) Pulse Ox O2 Delivery O2 Flow Rate FiO2 12/10/18 08:00 8.0 40 12/10/18 08:00 105 12/10/18 08:00 97.0 69 20 112/71 (85) 98 12/10/18 08:00 Venturi Mask 8.0 12/10/18 06:33 95 Venturi Mask 8.0 40 12/10/18 06:33 70 18 Venturi Mask 8.0 40 12/10/18 06:33 Venturi Mask 8.0 40 12/10/18 04:00 71 12/10/18 04:00 98.0 68 32 102/62 (75) 94 12/10/18 04:00 Venturi Mask 8.0 12/10/18 04:00 8.0 40 12/10/18 03:13 70 18 Venturi Mask 8.0 40 12/10/18 03:13 94 Venturi Mask 8.0 40 12/10/18 03:13 Venturi Mask 8.0 40 12/10/18 00:00 72 12/10/18 00:00 98.6 72 32 101/68 (79) 94 12/10/18 00:00 Venturi Mask 8.0 12/09/18 20:00 98.6 73 32 109/71 (84) 92 12/09/18 20:00 8.0 40 12/09/18 20:00 Venturi Mask 8.0 12/09/18 20:00 73 12/09/18 16:00 Venturi Mask 8.0 12/09/18 16:00 76 12/09/18 16:00 8.0 40 12/09/18 16:00 97.9 75 24 115/72 (86) 94 12/09/18 12:06 104/55 12/09/18 12:00 71 12/09/18 12:00 8.0 40 12/09/18 12:00 Venturi Mask 8.0 12/09/18 11:41 98.1 70 28 104/55 (71) 96 Intake and Output 12/09/18 12/10/18 19:00 07:00 Intake Total 590.000 ml 685 ml Balance 590.000 ml 685 ml Free Water 90 ml 350 ml IV Total 275.000 ml 55 ml Tube Feeding 225 ml 280 ml # Bowel Movements 1 Laboratory Tests Test 12/09/18 20:45 12/10/18 03:40 C-Reactive Protein, Quantitative 27.9 mg/dL (0.00-0.90) H White Blood Count 21.7 K/UL (4.8-10.8) H Red Blood Count 2.24 M/UL (4.70-6.10) L Hemoglobin 7.3 G/DL (14.2-18.0) L Hematocrit 23.5 % (42.0-52.0) L Mean Corpuscular Volume 105 FL (80-99) H Mean Corpuscular Hemoglobin 32.4 PG (27.0-31.0) H Mean Corpuscular Hemoglobin Concent 30.9 G/DL (32.0-36.0) L Red Cell Distribution Width 19.7 % (11.6-14.8) H Platelet Count 193 K/UL (150-450) Mean Platelet Volume 9.3 FL (6.5-10.1) Neutrophils (%) (Auto) % (45.0-75.0) Lymphocytes (%) (Auto) % (20.0-45.0) Monocytes (%) (Auto) % (1.0-10.0) Eosinophils (%) (Auto) % (0.0-3.0) Basophils (%) (Auto) % (0.0-2.0) Differential Total Cells Counted 100 Neutrophils % (Manual) 92 % (45-75) H Lymphocytes % (Manual) 2 % (20-45) L Monocytes % (Manual) 6 % (1-10) Eosinophils % (Manual) 0 % (0-3) Basophils % (Manual) 0 % (0-2) Band Neutrophils 0 % (0-8) Platelet Estimate Adequate Platelet Morphology Normal Hypochromasia 2+ Anisocytosis 3+ Macrocytosis 1+ Target Cells Rare Sodium Level 135 MMOL/L (136-145) L Potassium Level 4.0 MMOL/L (3.5-5.1) Chloride Level 98 MMOL/L (98-107) Carbon Dioxide Level 27 MMOL/L (21-32) Anion Gap 10 mmol/L (5-15) Blood Urea Nitrogen 60 mg/dL (7-18) H Creatinine 3.8 MG/DL (0.55-1.30) H Estimat Glomerular Filtration Rate 16.0 mL/min (>60) Glucose Level 72 MG/DL (74-106) L Uric Acid 5.4 MG/DL (2.6-7.2) Calcium Level 8.9 MG/DL (8.5-10.1) Phosphorus Level 4.6 MG/DL (2.5-4.9) Magnesium Level 2.2 MG/DL (1.8-2.4) Iron Level 31 ug/dL (50-175) L Total Iron Binding Capacity 65 ug/dL (250-450) L Percent Iron Saturation 48 % (15-50) Unsaturated Iron Binding 34 ug/dL (112-346) L Ferritin 1564 NG/ML (8-388) H Total Bilirubin 2.2 MG/DL (0.2-1.0) H Direct Bilirubin 1.7 MG/DL (0.0-0.3) H Aspartate Amino Transf (AST/SGOT) 30 U/L (15-37) Alanine Aminotransferase (ALT/SGPT) 9 U/L (12-78) L Alkaline Phosphatase 206 U/L (46-116) H Pro-B-Type Natriuretic Peptide > 35855 pg/mL (0-125) H Total Protein 7.2 G/DL (6.4-8.2) Albumin 1.8 G/DL (3.4-5.0) L Globulin 5.4 g/dL Albumin/Globulin Ratio 0.3 (1.0-2.7) L Microbiology Date/Time Source Procedure Growth Status 12/09/18 12:30 Stool Clostridium difficile Toxin Assay - Final Complete Height (Feet): 5 Height (Inches): 4.00 Weight (Pounds): 144 General Appearance: no apparent distress Cardiovascular: normal rate Respiratory/Chest: normal breath sounds, no respiratory distress, other - Venturi mask Abdominal Exam: normal bowel sounds, non tender, soft, other - NGT Extremities: non-tender Azael Pratt NP Dec 10, 2018 11:09
--- NOTE | 2018-12-10 11:30 | Diagnostic Imaging Report ---
Indication: Abdominal pain Technique: Supine view of the abdomen Comparison: 12/06/2018 Findings: Gastric tube again demonstrated, tip projected level gastric fundus body junction. The bowel gas pattern is unremarkable, amount of bowel gas overall decreased from the prior study. Pulmonary parenchymal opacities are again noted. Exam is somewhat overexposed. Impression: No acute process. Findings as noted
--- NOTE | 2018-12-10 11:34 | NUR ---
LOGISTICS CLERKHOSPICE LIAISON SI:RESPIRATORY DISTRESS VS: BP 101/68, P 105, T 97.0, RR 22, SpO2 92 on 8.0 V.Mask FiO2 40 WBC 21.7 RBC 2.24, Na 135, BUN 60, CR 4.6, Total Bilirubin 2.2 ABDOMINAL XRAY Findings: Pulmonary parenchymal opacities are again noted. IS:LANSOPRAZOLE 30mg ASPIRIN 81mg RENVELA 800mg SDU STATUS
[2018-12-10 12:00] VITALS: BP 99/66
--- NOTE | 2018-12-10 12:10 | NUR ---
Social Work This Sw received a call from friend of sister, Lucretia, Kevan Busch ([phone]) who is assisting patients sister with communication (sister is in [place] and speaks only [place]). Kevan explained Lucretia is the only decision maker for patient, while working on getting a temporary VISA to visit patient here as soon as possible. This SW requested sisters contact information; SW to assist with letter for the embassy. Friend, Kevan will get in contact with Lucretia and contact this SEVERO (or Emiyl) as soon as he has spoken with Lucretia (friend, Kevan unable to provide sisters phone number at this time). SW to follow.
--- NOTE | 2018-12-10 12:27 | Infectious Diseases Prog Note ---
Assessment/Plan Assessment/Plan ASSESSMENT AND PLAN: 1. right ankle/foot/leg infected wound/gangrene/necrosis/?ischemia/osteomyelitis , sepsis, esbl e.coli uti, MRSA pna, leukocytosis - vancomycin and meropenem - monitor labs and chest x-ray - surgery, podiatry and vascular surgery f/u - await decision on amputation, refusing for now - notes reviewed - d/w RN 2. The patient has end-stage renal disease on hemodialysis. He has a shunt. No hemodialysis line. 3. History of UTI. 4. Anemia. 5. Elevated creatinine. 6. Renal failure. 7. The patient has history of diabetes. 8. Hypertension. 9. COPD. 10. CHF. 11. Hypertension and diabetes treatment per primary. 12. Allergies to penicillin and phenytoin, tolerates meropenem. 13. Social history is negative for smoking, alcohol, or drug abuse. 14. Family history is noncontributory. 15. MAR was noted. 16. Case discussed with RN. 17. Continue treatment per primary consultants. 18. Case communicated with Dr. Frieda Clay. 19. Orders were noted and entered. 20. Continue treatment per primary consultants. 21. mrsa and vre colonization Subjective Constitutional: Denies: fever HEENT: Reports: congestion Respiratory: Reports: shortness of breath Cardiovascular: Denies: chest pain Gastrointestinal/Abdominal: Denies: nausea, diarrhea Allergies: Coded Allergies: PENICILLINS (Unverified Allergy, Mild, 12/05/18) PHENYTOIN (Verified Allergy, Unknown, 10/17/18) Uncoded Allergies: PENICILLIN (Allergy, Mild, 11/17/18) Objective Vital Signs Last 24 Hour Vital Signs Date Time Temp Pulse Resp B/P (MAP) Pulse Ox O2 Delivery O2 Flow Rate FiO2 12/10/18 12:00 8.0 40 12/10/18 12:00 97.7 72 22 99/66 (77) 96 12/10/18 12:00 Venturi Mask 8.0 12/10/18 08:00 8.0 40 12/10/18 08:00 105 12/10/18 08:00 97.0 69 20 112/71 (85) 98 12/10/18 08:00 Venturi Mask 8.0 12/10/18 06:33 95 Venturi Mask 8.0 40 3/18/19 06:33 70 18 Venturi Mask 8.0 40 12/10/18 06:33 Venturi Mask 8.0 40 12/10/18 04:00 71 12/10/18 04:00 98.0 68 32 102/62 (75) 94 12/10/18 04:00 Venturi Mask 8.0 12/10/18 04:00 8.0 40 12/10/18 03:13 70 18 Venturi Mask 8.0 40 12/10/18 03:13 94 Venturi Mask 8.0 40 12/10/18 03:13 Venturi Mask 8.0 40 12/10/18 00:00 72 12/10/18 00:00 98.6 72 32 101/68 (79) 94 12/10/18 00:00 Venturi Mask 8.0 12/09/18 20:00 98.6 73 32 109/71 (84) 92 12/09/18 20:00 8.0 40 12/09/18 20:00 Venturi Mask 8.0 12/09/18 20:00 73 12/09/18 16:00 Venturi Mask 8.0 12/09/18 16:00 76 12/09/18 16:00 8.0 40 12/09/18 16:00 97.9 75 24 115/72 (86) 94 Height (Feet): 5 Height (Inches): 4.00 Weight (Pounds): 144 General Appearance: no acute distress HEENT: normocephalic, atraumatic, anicteric Respiratory/Chest: crackles/rales, rhonchi - bilaterally Cardiovascular: normal rate, regular rhythm, no gallop/murmur Abdomen: normal bowel sounds, soft, non tender, no organomegaly, non distended Objective Chest x-ray - 12/07/18 - Comparison: 12/05/2018 Findings: Interim placement of a nasogastric tube, tip projecting at the level gastric fundus, proximal port probably beyond the gastroesophageal junction. Bilateral interstitial and airspace opacities appear similar to the previous study. Right arm and innominate venous stents are again demonstrated. MRI - right ankle - Impression: Marrow edema, suspicious for osteomyelitis, involving the posterior calcaneus, talus, middle and lateral cuneiforms Multiple fluid collections versus very edematous phlegmon, as described. These could represent abscesses Evidence of heel ulceration and marked thinning of the skin, consistent with stated clinical history of ulceration and necrotic wound Chest x-ray - 12/09/18 - COMPARISON: Chest x-ray dated 12/07/18 FINDINGS: Lungs: No significant interval change of bilateral interstitial and airspace opacities. Pleural space: Unremarkable. The costophrenic angles are sharp. No visible pneumothorax. Heart: Unremarkable. No cardiomegaly. Mediastinum: Unremarkable. Bones/joints: Degenerative changes throughout the visualized spine and shoulder joints. Vasculature: Unchanged positioning of the right arm and innominate vein stents. Atherosclerotic calcifications within the aortic arch. Tubes, lines and devices: Stable positioning of the NG tube. Telemetry leads overlie the thorax. IMPRESSION: No significant interval change of bilateral interstitial and airspace opacities. Microbiology Date/Time Source Procedure Growth Status 12/09/18 12:30 Stool Clostridium difficile Toxin Assay - Final Complete Laboratory Tests Test 12/09/18 20:45 12/10/18 03:40 C-Reactive Protein, Quantitative 27.9 mg/dL (0.00-0.90) H White Blood Count 21.7 K/UL (4.8-10.8) H Red Blood Count 2.24 M/UL (4.70-6.10) L Hemoglobin 7.3 G/DL (14.2-18.0) L Hematocrit 23.5 % (42.0-52.0) L Mean Corpuscular Volume 105 FL (80-99) H Mean Corpuscular Hemoglobin 32.4 PG (27.0-31.0) H Mean Corpuscular Hemoglobin Concent 30.9 G/DL (32.0-36.0) L Red Cell Distribution Width 19.7 % (11.6-14.8) H Platelet Count 193 K/UL (150-450) Mean Platelet Volume 9.3 FL (6.5-10.1) Neutrophils (%) (Auto) % (45.0-75.0) Lymphocytes (%) (Auto) % (20.0-45.0) Monocytes (%) (Auto) % (1.0-10.0) Eosinophils (%) (Auto) % (0.0-3.0) Basophils (%) (Auto) % (0.0-2.0) Differential Total Cells Counted 100 Neutrophils % (Manual) 92 % (45-75) H Lymphocytes % (Manual) 2 % (20-45) L Monocytes % (Manual) 6 % (1-10) Eosinophils % (Manual) 0 % (0-3) Basophils % (Manual) 0 % (0-2) Band Neutrophils 0 % (0-8) Platelet Estimate Adequate Platelet Morphology Normal Hypochromasia 2+ Anisocytosis 3+ Macrocytosis 1+ Target Cells Rare Sodium Level 135 MMOL/L (136-145) L Potassium Level 4.0 MMOL/L (3.5-5.1) Chloride Level 98 MMOL/L (98-107) Carbon Dioxide Level 27 MMOL/L (21-32) Anion Gap 10 mmol/L (5-15) Blood Urea Nitrogen 60 mg/dL (7-18) H Creatinine 3.8 MG/DL (0.55-1.30) H Estimat Glomerular Filtration Rate 16.0 mL/min (>60) Glucose Level 72 MG/DL (74-106) L Uric Acid 5.4 MG/DL (2.6-7.2) Calcium Level 8.9 MG/DL (8.5-10.1) Phosphorus Level 4.6 MG/DL (2.5-4.9) Magnesium Level 2.2 MG/DL (1.8-2.4) Iron Level 31 ug/dL (50-175) L Total Iron Binding Capacity 65 ug/dL (250-450) L Percent Iron Saturation 48 % (15-50) Unsaturated Iron Binding 34 ug/dL (112-346) L Ferritin 1564 NG/ML (8-388) H Total Bilirubin 2.2 MG/DL (0.2-1.0) H Direct Bilirubin 1.7 MG/DL (0.0-0.3) H Aspartate Amino Transf (AST/SGOT) 30 U/L (15-37) Alanine Aminotransferase (ALT/SGPT) 9 U/L (12-78) L Alkaline Phosphatase 206 U/L (46-116) H Pro-B-Type Natriuretic Peptide > 51368 pg/mL (0-125) H Total Protein 7.2 G/DL (6.4-8.2) Albumin 1.8 G/DL (3.4-5.0) L Globulin 5.4 g/dL Albumin/Globulin Ratio 0.3 (1.0-2.7) L Current Medications Medications (Trade) Dose Ordered Sig/Ronald Route PRN Reason Start Time Stop Time Status Last Admin Dose Admin Acetaminophen/ Hydrocodone Bitart ([place] 5/325) 1 tab Q4H PRN ORAL For Severe Pain 12/05/18 10:00 12/12/18 09:57 Dextrose (Dextrose 50%) 25 ml Q30M PRN IV Hypoglycemia 12/04/18 22:45 01/03/19 22:44 Dextrose (Dextrose 50%) 50 ml Q30M PRN IV Hypoglycemia 12/04/18 22:45 01/03/19 22:44 12/10/18 11:45 Lansoprazole (Prevacid) 30 mg DAILY NG 12/09/18 09:00 01/08/19 08:59 12/10/18 08:26 Meropenem 500 mg/ Sodium Chloride 55 ml @ 110 mls/hr Q24H IVPB 12/09/18 21:00 12/14/18 20:59 12/09/18 22:08 Metoclopramide HCl (Reglan) 10 mg Q6H PRN IVP Nausea & Vomiting 12/09/18 12:15 01/08/19 12:14 Nitroglycerin (Ntg) 1 patch Q24H TDERMAL 12/05/18 13:00 01/04/19 12:59 12/07/18 13:03 Povidone Iodine (Betadine María) 1 applic QHS TOPIC 12/06/18 21:00 01/05/19 20:59 12/09/18 22:05 Pyridoxine HCl (Vitamin B6) 25 mg DAILY NG 12/08/18 09:00 01/07/19 08:59 12/10/18 08:27 Sevelamer Carbonate (Renvela) 800 mg THREE TIMES A DAY NG 12/08/18 09:00 01/07/19 08:59 12/10/18 08:27 Tramadol HCl (Ultram) 50 mg Q6H PRN ORAL For Mod Pain 12/05/18 09:59 12/12/18 09:58 Vancomycin HCl (Vanco rx to dose) 1 ea DAILY PRN MISC Per rx protocol 12/09/18 12:30 01/08/19 12:29 Vitamin B Complex/ Vit C/Folic Acid (Nephrovite) 1 tab DAILY NG 12/08/18 09:00 01/07/19 08:59 12/10/18 08:27 Anshu Munguia MD Dec 10, 2018 12:27
[2018-12-10] MEDS: Nitroglycerin Patch 0.4mg TDERMAL SCH (12:55)
--- NOTE | 2018-12-10 13:45 | Nephrology Progress Note ---
Assessment/Plan Problem List: (1) ESRF (end stage renal failure) (2) Leukocytosis Assessment: sepsis (3) CHF (congestive heart failure) (4) Acute respiratory failure (5) Hyperbilirubinemia Assessment admitted with sepsis and shortness of breath (1) ESRD (end stage renal disease) right arm fistula (2) Possible Fluid overload, unspecified (3) h/o Bradycardia (4) Anemia (5) h/o Pleural effusion (6) Elevated troponin (7) Allergy Dialntin & PCN (8) Elevated Bili Plan was on bipap , now is on O2 cannula HD next 12/10 done adjust BP meds 2D Echo 55% EjFx stop beta blockers for low HR hydralazin and procardia as needed reviewe CXR : Pneumonia per consultants Subjective ROS Limited/Unobtainable: No Constitutional: Reports: malaise, weakness Objective Objective Last 24 Hour Vital Signs Date Time Temp Pulse Resp B/P (MAP) Pulse Ox O2 Delivery O2 Flow Rate FiO2 12/10/18 12:55 99/66 12/10/18 12:00 8.0 40 12/10/18 12:00 97.7 72 22 99/66 (77) 96 12/10/18 12:00 Venturi Mask 8.0 12/10/18 08:00 8.0 40 12/10/18 08:00 105 12/10/18 08:00 97.0 69 20 112/71 (85) 98 12/10/18 08:00 Venturi Mask 8.0 12/10/18 06:33 95 Venturi Mask 8.0 40 12/10/18 06:33 70 18 Venturi Mask 8.0 40 12/10/18 06:33 Venturi Mask 8.0 40 12/10/18 04:00 71 12/10/18 04:00 98.0 68 32 102/62 (75) 94 12/10/18 04:00 Venturi Mask 8.0 12/10/18 04:00 8.0 40 12/10/18 03:13 70 18 Venturi Mask 8.0 40 12/10/18 03:13 94 Venturi Mask 8.0 40 12/10/18 03:13 Venturi Mask 8.0 40 12/10/18 00:00 72 12/10/18 00:00 98.6 72 32 101/68 (79) 94 12/10/18 00:00 Venturi Mask 8.0 12/09/18 20:00 98.6 73 32 109/71 (84) 92 12/09/18 20:00 8.0 40 12/09/18 20:00 Venturi Mask 8.0 12/09/18 20:00 73 12/09/18 16:00 Venturi Mask 8.0 12/09/18 16:00 76 12/09/18 16:00 8.0 40 12/09/18 16:00 97.9 75 24 115/72 (86) 94 Intake and Output 12/09/18 12/10/18 19:00 07:00 Intake Total 590.000 ml 685 ml Balance 590.000 ml 685 ml Free Water 90 ml 350 ml IV Total 275.000 ml 55 ml Tube Feeding 225 ml 280 ml # Bowel Movements 1 Laboratory Tests 12/09/18 20:45: C-Reactive Protein, Quantitative 27.9H 12/10/18 03:40: White Blood Count 21.7H, Red Blood Count 2.24L, Hemoglobin 7.3L, Hematocrit 23.5L, Mean Corpuscular Volume 105H, Mean Corpuscular Hemoglobin 32.4H, Mean Corpuscular Hemoglobin Concent 30.9L, Red Cell Distribution Width 19.7H, Platelet Count 193, Mean Platelet Volume 9.3, Neutrophils (%) (Auto) , Lymphocytes (%) (Auto) , Monocytes (%) (Auto) , Eosinophils (%) (Auto) , Basophils (%) (Auto) , Differential Total Cells Counted 100, Neutrophils % ( Manual) 92H, Lymphocytes % (Manual) 2L, Monocytes % (Manual) 6, Eosinophils % ( Manual) 0, Basophils % (Manual) 0, Band Neutrophils 0, Platelet Estimate Adequate, Platelet Morphology Normal, Hypochromasia 2+, Anisocytosis 3+, Macrocytosis 1+, Target Cells Rare, Sodium Level 135L, Potassium Level 4.0, Chloride Level 98, Carbon Dioxide Level 27, Anion Gap 10, Blood Urea Nitrogen 60H, Creatinine 3.8H, Estimat Glomerular Filtration Rate 16.0, Glucose Level 72L , Uric Acid 5.4, Calcium Level 8.9, Phosphorus Level 4.6, Magnesium Level 2.2, Iron Level 31L, Total Iron Binding Capacity 65L, Percent Iron Saturation 48, Unsaturated Iron Binding 34L, Ferritin 1564H, Total Bilirubin 2.2H, Direct Bilirubin 1.7H, Aspartate Amino Transf (AST/SGOT) 30, Alanine Aminotransferase ( ALT/SGPT) 9L, Alkaline Phosphatase 206H, Pro-B-Type Natriuretic Peptide > 75429K , Total Protein 7.2, Albumin 1.8L, Globulin 5.4, Albumin/Globulin Ratio 0.3L Height (Feet): 5 Height (Inches): 4.00 Weight (Pounds): 144 General Appearance: no apparent distress, lethargic Objective no change Alessandro Price MD Dec 10, 2018 13:45
--- NOTE | 2018-12-10 13:45 | NUR ---
PT NOTE: Pt unable to perform PT treatment due to pt going through dialysis. Spoke with nurse who recommended to reschedule PT treatment session due to pt being weak and low SPO2 levels with activity. Will return at a later date to attempt PT treatment. Nurse call light left within pt reach. Notified nurse.
--- NOTE | 2018-12-10 14:14 | Diagnostic Imaging Report ---
INDICATION: Right ankle foot and leg infected wound, gangrene, necrosis, ischemia, osteomyelitis, sepsis TECHNIQUE: IV administration nonionic contrast. Arterial phase spiral acquisitions obtained through the abdomen, pelvis, and bilateral lower extremities, as well as of the chest (reported separately). Multiplanar and 3-D reconstructions were generated. Total dose length product 1480 mGycm. CTDIvol(s) 7, 4 mGy. Radiation dose was minimized using automated exposure control COMPARISON: Reference made to noncontrast chest abdomen pelvis CT dated 11/19/2018 FINDINGS Vessels are heavily calcified, limiting assessment of luminal patency. Abdominal aorta: There is 80+ percent origin stenosis of the celiac axis. This demonstrates poststenotic dilatation. There is a replaced common hepatic artery, coming off of the superior mesenteric artery. The superior mesenteric artery is patent, no significant stenosis. Proximal branches are also patent. Bilateral renal arteries are patent. There is diffuse narrowing of the left renal artery beyond its origin, degree of stenosis uncertain due to heavy calcified atherosclerotic plaquing. The inferior mesenteric artery is patent, may have a significant stenosis at its origin, however. No evidence of significant aortic stenosis. There is mural plaquing. Right lower extremity: Patent and nonstenotic common iliac, external iliac arteries. Heavy atherosclerotic plaquing precludes exclusion of significant stenosis of the internal iliac origin. There is hard and soft plaque in the common femoral artery, which does not result in any significant stenosis. The profunda femoris artery is patent. No definite significant stenosis, although heavy calcification precludes exclusion of such. The superficial femoral artery is heavily calcified but patent without definite significant stenosis. There is high-grade stenosis of the popliteal artery at the level of the knee joint. This is focal. The trifurcation vessels are too heavily calcified to assess for degree of stenosis with any accuracy. There is questionably high-grade stenosis or occlusion of the anterior tibial origin the tibioperoneal trunk origin, and possibly the peroneal and posterior tibial origins. The posterior tibial and peroneal arteries do appear to be patent more distally. Left lower extremity: Patent and nonstenotic common iliac and external iliac arteries. There is likely significant stenosis of the proximal internal iliac artery, degree of which is impossible to assess with any confidence due to the extensive calcification. Patent nonstenotic common femoral artery. Images of the arteries below the inguinal ligament are limited, as due to technical difficulties thin slice images of the left lower extremity could not be loaded into the patient's file. There is evidence of one or more borderline significant stenoses of the superficial femoral artery, one at the origin and one in the mid to distal portion, but no definite high-grade stenosis is demonstrated. The popliteal artery occludes just below the ankle and just below the margin of the amputation stump. Patient is status post [id number] amputation. Nonvascular: Soft tissue gas is seen in the right foot lateral to the lateral malleolus. There is diffuse edema of the right foot. Osseous erosion of the calcaneus posteriorly is noted, consistent with findings reported on recent MRI. There are also erosive changes of the medial distal tibia. There is generalized diffuse edema of the subcutaneous and abdominal fat. There is a large amount of abdominal ascites. The appendix is not definitely visualized, but no findings to suggest acute appendicitis are evident. The rectum is mildly distended with stool. No evidence of diverticulosis or diverticulitis. No small bowel distention. No free intraperitoneal gas The liver is unremarkable. The gallbladder is nondistended. There are questionably low-attenuation foci within the gallbladder lumen which may represent calculi. No focal liver lesions are demonstrated. There is no biliary ductal dilatation. The pancreas, spleen, adrenals are unremarkable. The kidneys are atrophic. No pelvic mass or adenopathy. IMPRESSION: Evidence of high-grade stenosis of the popliteal artery just below the knee joint. This is focal. No evidence of significant suprageniculate stenosis on the right Uncertain status of the right tibial vessels, due to heavy circumferential calcification obscuring the lumens Borderline significant stenoses of the left superficial femoral artery. No significant supra geniculate stenosis Prior left below the knee amputation Soft tissue gas in the right foot lateral to lateral malleolus, consistent with infection by gas-forming organism Erosive changes of the calcaneus and distal tibia, consistent with osteomyelitis, also reported on prior MRI Anasarca, severe Large amount of ascites. Possible mild rectal fecal impaction Equivocal cholelithiasis Atrophic kidneys, consistent with known history of chronic renal disease Findings discussed by phone previously with Dr. Michaels The CT scanner at [facility] is accredited by the [place] [employer] and the scans are performed using protocols designed to limit radiation exposure to as low as reasonably achievable to attain images of sufficient resolution adequate for diagnostic evaluation.
[2018-12-10 16:00] VITALS: BP 154/98
--- NOTE | 2018-12-10 16:37 | Diagnostic Imaging Report ---
Indication: Abnormal liver function tests, abnormal renal function tests, leukocytosis Technique: Bowen-scale and duplex images of the upper abdomen were obtained. Doppler interrogation of the hepatic and pancreatic vessels Comparison: 10/19/2018 Findings: Gallbladder demonstrates marked wall thickening. No definite calculi. Sonographic Coffman's sign could not be assessed. Gallbladder wall does demonstrate areas of comet tail artifact. Common bile duct measures 6 mm in diameter. No intrahepatic biliary ductal dilatation. Liver demonstrates normal echogenicity, no focal abnormality. It does demonstrate surface micronodularity. Portal vein and hepatic veins are patent. Pancreas is unremarkable. Spleen is unremarkable. Left kidney measures 8.8 cm in length. Right kidney measures 8.6 cm length. Both kidneys demonstrate increased echogenicity. There is no hydronephrosis. Small cysts are seen in the right kidney. Echogenic foci in the renal sinuses most likely represent arterial calcifications. There are bilateral pleural effusions. Non-aneurysmal abdominal aorta . Impression: Hepatic surface nodularity, likely reflecting cirrhotic change. Negative for gallstones. However, gallbladder wall is markedly thickened. This is probably due to the hepatocellular disease Comment tail artifact in the gallbladder wall, not definitely evident previously, of uncertain significance but could indicate adenomyosis Ascites, also previously described Bilateral pleural effusions, also previously described Bilateral echogenic atrophic kidneys, consistent with known history of chronic renal disease Incidental finding right renal cysts
--- NOTE | 2018-12-10 16:42 | General Progress Note ---
Assessment/Plan Assessment/Plan ASSESSMENT/RECS: # Leukocytosis/Elevated white blood cell count, unspecified likely related to underlying stress reaction, smoking, or underlying infection (especially if bandemia is noted) --> have reviewed peripheral smear and bandemia/neutrophilia noted --> esr and crp elevated on prior labs --> continue on meropenem and vancomycin started by ID team --> monitor for resolution 28k-->21k-->24-->21k --> flow cytometry pending --> currently refusing surgery # Anemia of chronic disease due to underlying chronic medical issues, multifactorial --> Anemia workup has been reviewed, Ferritin 1678 --> No evidence of hemolysis is noted, peripheral smear has been reviewed. --> Hgb goal >7. Transfuse prn. --> Epogen or iron at this time is not particularly indicated --> Medications have been reviewed # Coagulopathy with elevated inr --> consider repeat in one week --> obtain a mixing study # Sepsis, elevated white count --> on meropenem and vancomycin, as per id --> appreciate ID recs # End-stage renal disease on hemodialysis --> appreciate nephro recs --> hd as needed # R foot infection vs UTI vs PNA --> appreciate ID recs # Acute hypercapnic respiratory failure , Cont BiPAP, --> appreciate pulm recs The timing of this note does not necessarily reflect the time of the patient was seen. Greatly appreciate consultation! Subjective Constitutional: Denies: no symptoms, chills, diaphoresis, fever, malaise, weakness, other HEENT: Denies: no symptoms, eye pain, blurred vision, tearing, double vision, ear pain, ear discharge, nose pain, nose congestion, throat pain, throat swelling, mouth pain, mouth swelling, other Respiratory: Denies: no symptoms, cough, orthopnea, shortness of breath, SOB with excertion, SOB at rest, sputum, stridor, wheezing, other Gastrointestinal/Abdominal: Denies: no symptoms, abdomen distended, abdominal pain, black stools, tarry stools, blood in stool, constipated, diarrhea, difficulty swallowing, nausea, poor appetite, poor fluid intake, rectal bleeding , vomiting, other Genitourinary: Denies: no symptoms, burning, discharge, frequency, flank pain, hematuria, incontinence, pain, urgency, other Neurologic/Psychiatric: Denies: no symptoms, anxiety, depressed, emotional problems, headache, numbness, paresthesia, pre-existing deficit, seizure, tingling, tremors, weakness, other Endocrine: Denies: no symptoms, excessive sweating, flushing, intolerance to cold, intolerance to heat, increased hunger, increased thirst, increased urine, unexplained weight gain, unexplained weight loss, other Allergies: Coded Allergies: PENICILLINS (Unverified Allergy, Mild, 12/05/18) PHENYTOIN (Verified Allergy, Unknown, 10/17/18) Uncoded Allergies: PENICILLIN (Allergy, Mild, 11/17/18) Subjective 12/07: seen by bedside, leukocytosis trending up at 24, on abx, hgb 7.6, no events 12/09: Pt is resting in bed, wbc remains elevated, 12/10: on abx, wbc is better, anemia panel reviewed, getting hd Objective Last 24 Hour Vital Signs Date Time Temp Pulse Resp B/P (MAP) Pulse Ox O2 Delivery O2 Flow Rate FiO2 12/10/18 12:55 99/66 12/10/18 12:00 8.0 40 12/10/18 12:00 97.7 72 22 99/66 (77) 96 12/10/18 12:00 Venturi Mask 8.0 12/10/18 08:00 8.0 40 12/10/18 08:00 105 12/10/18 08:00 97.0 69 20 112/71 (85) 98 12/10/18 08:00 Venturi Mask 8.0 12/10/18 06:33 95 Venturi Mask 8.0 40 12/10/18 06:33 70 18 Venturi Mask 8.0 40 12/10/18 06:33 Venturi Mask 8.0 40 12/10/18 04:00 71 12/10/18 04:00 98.0 68 32 102/62 (75) 94 12/10/18 04:00 Venturi Mask 8.0 12/10/18 04:00 8.0 40 12/10/18 03:13 70 18 Venturi Mask 8.0 40 12/10/18 03:13 94 Venturi Mask 8.0 40 12/10/18 03:13 Venturi Mask 8.0 40 12/10/18 00:00 72 12/10/18 00:00 98.6 72 32 101/68 (79) 94 12/10/18 00:00 Venturi Mask 8.0 12/09/18 20:00 98.6 73 32 109/71 (84) 92 12/09/18 20:00 8.0 40 12/09/18 20:00 Venturi Mask 8.0 12/09/18 20:00 73 Intake and Output 12/09/18 12/10/18 19:00 07:00 Intake Total 590.000 ml 685 ml Balance 590.000 ml 685 ml Free Water 90 ml 350 ml IV Total 275.000 ml 55 ml Tube Feeding 225 ml 280 ml # Bowel Movements 1 Laboratory Tests 12/09/18 20:45: C-Reactive Protein, Quantitative 27.9H 12/10/18 03:40: White Blood Count 21.7H, Red Blood Count 2.24L, Hemoglobin 7.3L, Hematocrit 23.5L, Mean Corpuscular Volume 105H, Mean Corpuscular Hemoglobin 32.4H, Mean Corpuscular Hemoglobin Concent 30.9L, Red Cell Distribution Width 19.7H, Platelet Count 193, Mean Platelet Volume 9.3, Neutrophils (%) (Auto) , Lymphocytes (%) (Auto) , Monocytes (%) (Auto) , Eosinophils (%) (Auto) , Basophils (%) (Auto) , Differential Total Cells Counted 100, Neutrophils % ( Manual) 92H, Lymphocytes % (Manual) 2L, Monocytes % (Manual) 6, Eosinophils % ( Manual) 0, Basophils % (Manual) 0, Band Neutrophils 0, Platelet Estimate Adequate, Platelet Morphology Normal, Hypochromasia 2+, Anisocytosis 3+, Macrocytosis 1+, Target Cells Rare, Sodium Level 135L, Potassium Level 4.0, Chloride Level 98, Carbon Dioxide Level 27, Anion Gap 10, Blood Urea Nitrogen 60H, Creatinine 3.8H, Estimat Glomerular Filtration Rate 16.0, Glucose Level 72L , Uric Acid 5.4, Calcium Level 8.9, Phosphorus Level 4.6, Magnesium Level 2.2, Iron Level 31L, Total Iron Binding Capacity 65L, Percent Iron Saturation 48, Unsaturated Iron Binding 34L, Ferritin 1564H, Total Bilirubin 2.2H, Direct Bilirubin 1.7H, Aspartate Amino Transf (AST/SGOT) 30, Alanine Aminotransferase ( ALT/SGPT) 9L, Alkaline Phosphatase 206H, Pro-B-Type Natriuretic Peptide > 87463Q , Total Protein 7.2, Albumin 1.8L, Globulin 5.4, Albumin/Globulin Ratio 0.3L Height (Feet): 5 Height (Inches): 4.00 Weight (Pounds): 144 Objective VITAL SIGNS: Reviewed saturation 100%, blood pressure 102/63, FiO2 4 liters., venturi mask GENERAL: Alert and responsive No significant shortness of breath noted. HEAD AND NECK: Oral examination, no thrush. Neck is supple. No JVD. HEART: Regular. No gallop or murmur. ABDOMEN: Soft. Positive bowel sounds. Nontender. No organomegaly. LUNGS: Few bilateral rhonchi. No definite rales on exam. Decreased breath sounds. SKIN: No rash. Wounds were reviewed. Vadim Márquez MD Dec 10, 2018 16:42
--- NOTE | 2018-12-10 19:23 | NUR ---
HAND-OFF: Report given to Zafar Escobedo RN.
--- NOTE | 2018-12-10 19:24 | NUR ---
NURSE NOTES: Endorsement received from [facility]. Patient opens eyes spontaneously. On venturi mask 40%. NGT patent and intact. Placement rechecked per auscultation. Ongoing Nepro 40ml/hr. Residual checked, noted with 400ml yellowish undigested feeding. GT feeding withheld at this time. Left AKA. Left AC g 20 heplock. Patent and intact. No shortness of breath. No sign of pain or discomfort. HOB kept elevated. Bed locked and in low position. Call light within reach. Bed alarm on.
[2018-12-10 20:00] VITALS: BP 114/71
[2018-12-10] MEDS: Meropenem 500 MG in NS 55 ML IVPB SCH (20:53)
[2018-12-10] MEDS: Betadine 4oz Bottle TOPIC SCH (20:53)
--- NOTE | 2018-12-10 21:00 | NUR ---
NURSE NOTES: New order from Dr. Bonner for NPO and labs for tomorrow morning
--- NOTE | 2018-12-10 22:48 | General Progress Note ---
Assessment/Plan Assessment/Plan Assessment 68 year old male with PMH of DM, ESRD on HD (MWF - Last 12/03/18), s/p BKA, L chronic pressure ulcer and PVD was transferred from SNF for acute onset of shortness of breath and altered mental status, admitted for sepsis likely 2/2 R foot infection vs UTI vs PNA Plan #Severe Sepsis 2/2 R foot infection vs UTI vs PNA #Acute encephalopathy 2/2 infectious process - improved #Acute hypoxemic and hypercapnic respiratory failure 2/2 PNA -Cont vancomycin and meropenen -Transitioned from BiPAP to Venturi mask with adequate saturations -ABG PRN -Pulmonary consult noted, will d/w Pulm re oxygen requirements -ID consult noted, cont broad spectrum IV abx -Surgery consult appreciated, rec amputation, patient declines -MRI right foot and ankle: +osteomyelitis and fluid collection likely abscess -Vascular and podiatry consulted -daily care per surgery #Leukocytosis likly 2/2 infection vs leukomoid infection -28 >21 > 24>23 21 -Flow cytometry pending -Hematology consult appreciated #Dysphagia -NG tube placed -tube feeds restarted at 10cc/hr given high residuals advance as tolerated to goal of 40cc/hr -GI consult appreciated #DM now hypoglycemic -hypoglycemia likley 2/2 sepsis -hold antiDM medications -FSG Q6hrs -Currently on min tube feeds -Monitor respiratory status #ESRD on HD (MWF) via R arm fistula #HyperKalemia #HypoNA -no signs of fluid overload -nephrology consult appreciated -CTM electrolytes -HD per renal -Last HD 12/10 Code status with discussion: Patient seemed supportive of a comfort based approach this morning when I spoke with him, and was also coroborated by other ancillary staff (RT, nursing). However, the patient has changed his mind on this before and would still like to speak with his sister who lives in [place], it is unclear if she will be able to enter the [place] to visit him. We will continue to have the dialogue with him, however the pt should not be escalated to higher level of care given he declines amputation. I spent 45 min on this patients care, and 37 min was dedicated to counseling and /or care coordination Time of note may not represent time of encounter Subjective Date patient seen: Dec 10, 2018 Allergies: Coded Allergies: PENICILLINS (Unverified Allergy, Mild, 12/05/18) PHENYTOIN (Verified Allergy, Unknown, 10/17/18) Uncoded Allergies: PENICILLIN (Allergy, Mild, 11/17/18) All Systems: reviewed and negative except above Subjective No acute overnight events, pt seen during HD, sleepy but arousable, only answering yes/no to questions, MRI foot/ankle +OM, + fluid collections likely abscess Objective Last 24 Hour Vital Signs Date Time Temp Pulse Resp B/P (MAP) Pulse Ox O2 Delivery O2 Flow Rate FiO2 12/10/18 20:00 Venturi Mask 8.0 12/10/18 20:00 98.0 78 28 114/71 (85) 94 12/10/18 20:00 69 12/10/18 19:45 94 Venturi Mask 8.0 40 12/10/18 19:45 Venturi Mask 8.0 40 12/10/18 19:44 71 18 Venturi Mask 8.0 40 12/10/18 16:00 98.2 78 20 154/98 (116) 97 12/10/18 16:00 Venturi Mask 8.0 12/10/18 16:00 66 12/10/18 12:55 99/66 12/10/18 12:00 72 12/10/18 12:00 8.0 40 12/10/18 12:00 97.7 72 22 99/66 (77) 96 12/10/18 12:00 Venturi Mask 8.0 12/10/18 08:00 8.0 40 12/10/18 08:00 105 12/10/18 08:00 97.0 69 20 112/71 (85) 98 12/10/18 08:00 Venturi Mask 8.0 12/10/18 06:33 95 Venturi Mask 8.0 40 12/10/18 06:33 70 18 Venturi Mask 8.0 40 12/10/18 06:33 Venturi Mask 8.0 40 12/10/18 04:00 71 12/10/18 04:00 98.0 68 32 102/62 (75) 94 12/10/18 04:00 Venturi Mask 8.0 12/10/18 04:00 8.0 40 12/10/18 03:13 70 18 Venturi Mask 8.0 40 12/10/18 03:13 94 Venturi Mask 8.0 40 12/10/18 03:13 Venturi Mask 8.0 40 12/10/18 00:00 72 12/10/18 00:00 98.6 72 32 101/68 (79) 94 12/10/18 00:00 Venturi Mask 8.0 Intake and Output 12/09/18 12/10/18 19:00 07:00 Intake Total 590.000 ml 685 ml Balance 590.000 ml 685 ml Free Water 90 ml 350 ml IV Total 275.000 ml 55 ml Tube Feeding 225 ml 280 ml # Bowel Movements 1 Laboratory Tests 12/10/18 03:40: White Blood Count 21.7H, Red Blood Count 2.24L, Hemoglobin 7.3L, Hematocrit 23.5L, Mean Corpuscular Volume 105H, Mean Corpuscular Hemoglobin 32.4H, Mean Corpuscular Hemoglobin Concent 30.9L, Red Cell Distribution Width 19.7H, Platelet Count 193, Mean Platelet Volume 9.3, Neutrophils (%) (Auto) , Lymphocytes (%) (Auto) , Monocytes (%) (Auto) , Eosinophils (%) (Auto) , Basophils (%) (Auto) , Differential Total Cells Counted 100, Neutrophils % ( Manual) 92H, Lymphocytes % (Manual) 2L, Monocytes % (Manual) 6, Eosinophils % ( Manual) 0, Basophils % (Manual) 0, Band Neutrophils 0, Platelet Estimate Adequate, Platelet Morphology Normal, Hypochromasia 2+, Anisocytosis 3+, Macrocytosis 1+, Target Cells Rare, Sodium Level 135L, Potassium Level 4.0, Chloride Level 98, Carbon Dioxide Level 27, Anion Gap 10, Blood Urea Nitrogen 60H, Creatinine 3.8H, Estimat Glomerular Filtration Rate 16.0, Glucose Level 72L , Uric Acid 5.4, Calcium Level 8.9, Phosphorus Level 4.6, Magnesium Level 2.2, Iron Level 31L, Total Iron Binding Capacity 65L, Percent Iron Saturation 48, Unsaturated Iron Binding 34L, Ferritin 1564H, Total Bilirubin 2.2H, Direct Bilirubin 1.7H, Aspartate Amino Transf (AST/SGOT) 30, Alanine Aminotransferase ( ALT/SGPT) 9L, Alkaline Phosphatase 206H, Pro-B-Type Natriuretic Peptide > 53427K , Total Protein 7.2, Albumin 1.8L, Globulin 5.4, Albumin/Globulin Ratio 0.3L 12/10/18 17:55: PTT Mixing Study [Pending], APTT Patient/Control Mix [Pending], Mix PTT Incubation Time [Pending], Mix PTT Normal/Saline 1:1 Immediate [Pending], Thrombin Time Normal Plasma [Pending] Height (Feet): 5 Height (Inches): 4.00 Weight (Pounds): 144 Objective General: calm, appears stated age, on NC sat @98% Head: normocephalic, without obvious abnormality, atraumatic Eyes: conjunctivae/corneas clear. PERRL, EOM's intact Throat: lips, mucosa, and tongue normal. MMM Neck: supple, symmetrical, trachea midline, and no JVD Lungs: decreased effort, no wheezing, crackles or rhonchi from anterior chest Heart: regular rate and rhythm, S1, S2 normal, no murmur, click, rub or gallop Abdomen: soft, non-tender, non-distended, bowel sounds normal; no masses or organomegaly Extremities: L BKA, R stage 4 heel ulcer, R dorsum with dark discoloration, necrotic tissue, foul odor, +drainage Pulses: +1 pulse Skin: skin color, texture, turgor normal; no rashes or lesions Neurologic: grossly normal Frieda Miller MD Dec 10, 2018 22:48
[2018-12-11] VITALS (20 sets, daily range): BP systolic 89–130; BP diastolic 23–73
--- NOTE | 2018-12-11 | NUR ---
NURSE NOTES: Hourly rounding done. Patient asleep. No sign of pain or discomfort. Continues on Venturi Mask 40%. No shortness of breath. Still NPO. No bleeding at right upper arm shunt. Right foot dressing dry and intact. Head of bed elevated. Bed locked and in low position. Bed alarm on. On P200 mattress.
--- NOTE | 2018-12-11 01:18 | NUR ---
NURSE NOTES: HR was on the 30s on the monitor, patient became unresponsive. Pulse checked - PEA. Code blue announced. See code blue sheet.
--- NOTE | 2018-12-11 01:18 | NUR ---
CODE BLUE: Code blue called at 0118H at 235 bed 2. See Code sheet which remains on paper. Transferred to ICU
--- NOTE | 2018-12-11 01:30 | NUR ---
NURSE NOTES: Called Dr Andrade's emergency exchange. Dr. Demond Hamilton answered the call. Updated of patient's status. 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 Patient transferred to ICU. Endorsed to [facility].
--- NOTE | 2018-12-11 01:57 | NUR ---
NURSE NOTES: Received patient post code blue from SDU. Sinus rhythm on the monitor. Orally intubated AC 16, vt 500, peep5, fio2 100%. CLARISSA IV patent and intact. DEEPTI AV shut with dressing. Abdomen noted with distention, Left AKA, right foot with dressing. Sacral stage 2. On p200 mattress at this time. Will continue to monitor
--- NOTE | 2018-12-11 02:00 | NUR ---
NURSE NOTES: Called and left message for MD Lerma at this time about patient post code now in ICU. ICU orders needed.
[2018-12-11] MEDS ORDERED: Nephrovite tab (Rena-Vite) ORAL SCH (02:30)
[2018-12-11] MEDS ORDERED: Aspirin EC 81mg tab ORAL SCH ×2 (02:30→09:00)
--- NOTE | 2018-12-11 03:00 | NUR ---
NURSE NOTES: Message left for MD Lerma about Post intubation ABG. Awaiting call back.
[2018-12-11] MEDS ORDERED: traMADol 50mg tab ORAL PRN (04:00)
--- NOTE | 2018-12-11 04:00 | NUR ---
NURSE NOTES: Restraints placed at this time. Patient noted to reached for ETT. Bedside side teaching done for removal criteria. Will continue to monitor
--- NOTE | 2018-12-11 04:06 | Emergency Room Report ---
History of Present Illness General Chief Complaint: Generalized Weakness Source: Medical Record Present Illness Allergies: Coded Allergies: PENICILLINS (Unverified Allergy, Mild, 12/05/18) PHENYTOIN (Verified Allergy, Unknown, 10/17/18) Uncoded Allergies: PENICILLIN (Allergy, Mild, 11/17/18) Nursing Documentation-[facility] Past Medical History: No History, Except For Hx Cardiac Problems: Yes Hx Hypertension: Yes Hx COPD: Yes Hx Diabetes: Yes Hx Cancer: No Hx Gastrointestinal Problems: No Hx Dialysis: Yes - Renal failure Hx Neurological Problems: Yes Hx Cerebrovascular Accident: Yes - CHF Hx Aphasia: Yes Physical Exam Vital Signs Date Time Temp Pulse Resp B/P (MAP) Pulse Ox O2 Delivery O2 Flow Rate FiO2 12/07/18 07:55 95 Nasal Cannula 3.0 32 12/07/18 08:00 97.9 68 25 118/67 (84) Procedures CPR/Code Blue CPR/Code Blue Narrative I was called to a CODE BLUE upstairs Upon arrival the patient has received one amp of epinephrine There is palpable pulse with appropriate blood pressure secondary evaluation reveals Decreased work of inspiration and respiratory failure There is evidence of copious oral mucosa in the oral airway Patient does not have any muscle tone and intubation was performed without any medications Under direct physician irritation of the vocal cords X-rays obtained patient remains appropriate with palpable heart rate blood pressure appropriate Accu-Chek was also at 97 And at this time care handed back to the admitting physician Intubation Intubation : Consent: Emergent Intubation Method: orotracheal Tube Size (cm): 7.5 Breath Sounds after Intubation: equal Intubation Complications: no complications Post Intubation Xray: Yes Progress/Xray Impression: ET tube appropriate positions, bilateral patchy markings, no acute bony abn Attempts: One Patient Tolerated: Well Complications: None Medical Decision Making Diagnostic Impression: Primary Impression: Sepsis Additional Impression: Respiratory distress Last Vital Signs Date Time Temp Pulse Resp B/P (MAP) Pulse Ox O2 Delivery O2 Flow Rate FiO2 12/11/18 03:05 73 21 50 12/11/18 02:07 Mechanical Ventilator 12/11/18 00:00 97.6 101/62 (75) 92 12/11/18 00:00 8.0 Disposition: ADMITTED INPATIENT Condition: Serious Referrals: Pam Andrade MD (PCP) Danae Kitchen DO Dec 11, 2018 04:06
--- NOTE | 2018-12-11 05:25 | NUR ---
NURSE NOTES: Patient noted to be more awake at this time. Able to make needs known with gestures. restraints continue on because patient continues to reach for ETT. Will continue to monitor
[2018-12-11 05:48] LABS: HEMATOCRIT 30.7 % (42.0-52.0); HEMOGLOBIN 9.5 G/DL (14.2-18.0); MEAN CORPUSCULAR VOLUME 104 FL (80-99); PLATELET COUNT 181 K/UL (150-450); RED BLOOD COUNT 2.95 M/UL (4.70-6.10); RED CELL DISTRIBUTION WIDTH 20.1 % (11.6-14.8)
[2018-12-11] MEDS ORDERED: HYDROcodone/Acetamin 5/325 tab ORAL PRN (06:00)
[2018-12-11 06:03] LABS: INR 1.4 (0.9-1.1)
[2018-12-11] MEDS ORDERED: Metoclopramide 10mg/2ml Inj IVP PRN ×2 (06:15→09:00)
[2018-12-11 06:26] LABS: WHITE BLOOD COUNT 24.1 K/UL (4.8-10.8)
[2018-12-11 06:27] LABS: PHOSPHORUS 4.2 MG/DL (2.5-4.9)
[2018-12-11 06:32] LABS: ALANINE AMINOTRANSFERASE 16 U/L (12-78); ALBUMIN 1.8 G/DL (3.4-5.0); ALBUMIN/GLOBULIN RATIO 0.3 (1.0-2.7); ALKALINE PHOSPHATASE 205 U/L (46-116); ANION GAP 13 mmol/L (5-15); ASPARTATE AMINO TRANSFERASE 45 U/L (15-37); BILIRUBIN,TOTAL 2.5 MG/DL (0.2-1.0); BLOOD UREA NITROGEN 56 mg/dL (7-18); CALCIUM 9.4 MG/DL (8.5-10.1); CARBON DIOXIDE 25 MMOL/L (21-32); CHLORIDE 98 MMOL/L (98-107); CREATININE 3.2 MG/DL (0.55-1.30); POTASSIUM 4.2 MMOL/L (3.5-5.1); SODIUM 136 MMOL/L (136-145)
--- NOTE | 2018-12-11 07:19 | NUR ---
RESPIRATORY NOTE: received pt on vent, intubated with ETT 7.5 placed 22cm at the lip. ETT secured via anchor fast with no redness or skin tears around facial area. bilateral rhonchi/wheeze upon auscultation. Small to moderate amounts of white/bass secretions when sxn. vent settings are current with alarms on and audible. vent is plugged into red outlet with ambu bag at bedside. will cont to monitor.
--- NOTE | 2018-12-11 07:20 | NUR ---
HAND-OFF: Report given to Jac RN using SBAR. VS Stable. No signs of distress.
--- NOTE | 2018-12-11 07:40 | NUR ---
NURSE NOTES: Received the patient from [facility]. s/p anabel del angel today. Patient is awake, able to follow simple commands, able to communicate by nodding. Orally intubated AC 16, TV 500, FIO2 50%, PEEP 5, O2 sat 100%. No acute distress noted. SR noted on the monitor. Right nare NGT intact, patient kept NPO. Right AV shunt, dressing intact, clean and dry. Left upper arm 20G intact and patent. Patient noted with left AKA. Right foot and sacral dressing intact, clean and dry. Patient on P200 mattress. Patient on bilateral wrist soft restraints, no skin breakdown noted. Bed in lowest position, locked, side rails upx2. Call light within reach. Will continue to monitor. Addendum: 12/11/18 at 1217 by KIMMIE MELO RN correction: left BKA
--- NOTE | 2018-12-11 08:29 | NUR ---
ST NOTE: PT TRANSFERRED TO ICU. PLEASE RE-ORDER ST EVAL WHEN PT IS MEDICALLY STABLE. D/C FROM SKILLED [facility] SERVICE.
[2018-12-11] MEDS: Docusate 100mg/10ml Liq NG SCH (08:48)
[2018-12-11] MEDS: Renvela 800mg Pkt NG SCH ×3 (08:49→17:52)
[2018-12-11] MEDS: Pyridoxine 50mg tab NG SCH (08:49)
--- NOTE | 2018-12-11 08:52 | Pulmonolgy Critical Care Note ---
Critical Care - Asmt/Plan Problems: (1) Acute respiratory failure (2) Sepsis (3) ESRF (end stage renal failure) (4) Diabetes mellitus (5) S/P BKA (below knee amputation) (6) Osteomyelitis Respiratory: monitor respiratory rate, adjust FIO2, CXR Cardiac: continue pressors, continue to monitor HR/BP Renal: F/U I&O, check electrolytes Infectious Disease: check cultures, continue antibiotics Gastrointestinal: continue feedings/current rate Endocrine: monitor blood sugar Neurologic: PRN Ativan Affect: PRN ativan Prophylaxis: Protonix Notes Reviewed: cardio Discussed with: nurses, consultants, outsole caserict development manager - Objective Last 24 Hour Vital Signs Date Time Temp Pulse Resp B/P (MAP) Pulse Ox O2 Delivery O2 Flow Rate FiO2 12/11/18 07:17 75 18 40 12/11/18 05:32 81 21 40 12/11/18 05:00 82 21 130/73 (92) 100 12/11/18 04:00 71 12/11/18 04:00 50 12/11/18 04:00 73 26 127/48 (74) 100 12/11/18 04:00 Mechanical Ventilator 12/11/18 04:00 97.6 73 26 127/48 (74) 100 12/11/18 03:05 73 21 50 12/11/18 03:00 73 21 95/45 (62) 100 12/11/18 03:00 69 20 112/71 (85) 98 12/11/18 02:07 90 18 Mechanical Ventilator 100 12/11/18 02:00 100 12/11/18 01:34 98 12/11/18 01:28 90 18 100 12/11/18 00:00 97.6 65 20 101/62 (75) 92 12/11/18 00:00 Venturi Mask 8.0 12/11/18 00:00 64 12/10/18 20:00 Venturi Mask 8.0 12/10/18 20:00 98.0 78 28 114/71 (85) 94 12/10/18 20:00 69 12/10/18 19:45 94 Venturi Mask 8.0 40 12/10/18 19:45 Venturi Mask 8.0 40 12/10/18 19:44 71 18 Venturi Mask 8.0 40 12/10/18 16:00 98.2 78 20 154/98 (116) 97 12/10/18 16:00 Venturi Mask 8.0 12/10/18 16:00 66 12/10/18 12:55 99/66 12/10/18 12:00 72 12/10/18 12:00 8.0 40 12/10/18 12:00 97.7 72 22 99/66 (77) 96 12/10/18 12:00 Venturi Mask 8.0 Status: awake Condition: critical HEENT: atraumatic Lungs: chest wall tender Heart: HR/BP stable Abdomen: soft, non-tender Extremities: other - clean dressing Micro: Microbiology Date/Time Source Procedure Growth Status 12/09/18 12:30 Stool Clostridium difficile Toxin Assay - Final Complete Accucheck: 67 Critical Care - Subjective ROS Limited/Unobtainable: Yes ICU Day: 1 Intubation Day: 1 Interval Events: intubated earlier and transferred to ICU. Condition: critical FI02: 40 Vent Support Breath Rate: 16 Vent Support Mode: AC Vent Tidal Volume: 500 Sputum Amount: Moderate PEEP: 5.0 PIP: 34 Tube Feeding Amount: 0 I&O: Intake and Output 12/10/18 12/11/18 18:59 06:59 Intake Total 460 ml 125 ml Output Total 2000 ml 400 ml Balance -1540 ml -275 ml Free Water 60 ml 30 ml IV Total 55 ml Tube Feeding 150 ml 40 ml Blood Product 250 ml Gastric Drainage Total 400 ml Hemodialysis UF 2000 ml # Bowel Movements 2 1 CXR: RLL atelectasis ET-Tube: 7.5 ET Position: 22 Labs: Laboratory Tests Test 12/10/18 17:55 12/11/18 02:55 12/11/18 04:20 PTT Mixing Study Pending APTT Patient/Control Mix Pending Mix PTT Incubation Time Pending Mix PTT Normal/Saline 1:1 Immediate Pending Thrombin Time Normal Plasma Pending Arterial Blood pH 7.406 (7.350-7.450) Arterial Blood Partial Pressure CO2 40.6 mmHg (35.0-45.0) Arterial Blood Partial Pressure O2 465.9 mmHg (75.0-100.0) H Arterial Blood HCO3 24.9 mmol/L (22.0-26.0) Arterial Blood Oxygen Saturation 99.6 % (95-100) Arterial Blood Base Excess 0.2 (-2-2) Jose Test Positive White Blood Count 24.1 K/UL (4.8-10.8) *H Red Blood Count 2.95 M/UL (4.70-6.10) L Hemoglobin 9.5 G/DL (14.2-18.0) #L Hematocrit 30.7 % (42.0-52.0) #L Mean Corpuscular Volume 104 FL (80-99) H Mean Corpuscular Hemoglobin 32.1 PG (27.0-31.0) H Mean Corpuscular Hemoglobin Concent 30.9 G/DL (32.0-36.0) L Red Cell Distribution Width 20.1 % (11.6-14.8) H Platelet Count 181 K/UL (150-450) Mean Platelet Volume 9.6 FL (6.5-10.1) Neutrophils (%) (Auto) % (45.0-75.0) Lymphocytes (%) (Auto) % (20.0-45.0) Monocytes (%) (Auto) % (1.0-10.0) Eosinophils (%) (Auto) % (0.0-3.0) Basophils (%) (Auto) % (0.0-2.0) Neutrophils % (Manual) Pending Lymphocytes % (Manual) Pending Platelet Estimate Pending Platelet Morphology Pending Erythrocyte Sedimentation Rate Pending Prothrombin Time 14.4 SEC (9.30-11.50) H Prothromb Time International Ratio 1.4 (0.9-1.1) H Activated Partial Thromboplast Time 36 SEC (23-33) H Sodium Level 136 MMOL/L (136-145) Potassium Level 4.2 MMOL/L (3.5-5.1) Chloride Level 98 MMOL/L (98-107) Carbon Dioxide Level 25 MMOL/L (21-32) Anion Gap 13 mmol/L (5-15) Blood Urea Nitrogen 56 mg/dL (7-18) H Creatinine 3.2 MG/DL (0.55-1.30) H Estimat Glomerular Filtration Rate 19.5 mL/min (>60) Glucose Level 70 MG/DL (74-106) L Calcium Level 9.4 MG/DL (8.5-10.1) Phosphorus Level 4.2 MG/DL (2.5-4.9) Magnesium Level 2.1 MG/DL (1.8-2.4) Total Bilirubin 2.5 MG/DL (0.2-1.0) H Direct Bilirubin 2.0 MG/DL (0.0-0.3) H Aspartate Amino Transf (AST/SGOT) 45 U/L (15-37) H Alanine Aminotransferase (ALT/SGPT) 16 U/L (12-78) Alkaline Phosphatase 205 U/L (46-116) H C-Reactive Protein, Quantitative 28.8 mg/dL (0.00-0.90) H Total Protein 7.3 G/DL (6.4-8.2) Albumin 1.8 G/DL (3.4-5.0) L Globulin 5.5 g/dL Albumin/Globulin Ratio 0.3 (1.0-2.7) L Random Vancomycin Level 20.1 ug/mL Tamia Lerma MD Dec 11, 2018 08:52
--- NOTE | 2018-12-11 08:55 | General Progress Note ---
Assessment/Plan Problem List: (1) S/P BKA (below knee amputation) ICD Codes: Z89.519 - Acquired absence of unspecified leg below knee SNOMED: 00581468, 022109122 (2) Hx of BKA ICD Codes: Z89.519 - Acquired absence of unspecified leg below knee SNOMED: 634422942, 950086179 (3) Severe sepsis ICD Codes: A41.9 - Sepsis, unspecified organism; R65.20 - Severe sepsis without septic shock SNOMED: 48544211 (4) Diabetes mellitus ICD Codes: E11.9 - Type 2 diabetes mellitus without complications SNOMED: 85442517 (5) ESRF (end stage renal failure) ICD Codes: N18.6 - End stage renal disease SNOMED: 19411923 (6) Leukocytosis ICD Codes: D72.829 - Elevated white blood cell count, unspecified SNOMED: 328551969, 162236403 (7) CHF (congestive heart failure) ICD Codes: I50.9 - Heart failure, unspecified SNOMED: 82096287 (8) Anemia ICD Codes: D64.9 - Anemia, unspecified SNOMED: 517219460 Assessment/Plan Elevated residuals Dysphasia G-tube Macrocytic anemia Diarrhea C. difficile, negative Occult blood stool positive Elevated LFTs KUB negative G-tube feedings, will resume Reglan 5 mg ATC Monitor H&H, PRN transfusions PPI Consider Imodium if patient has persistent diarrhea Follow-up cardiology recommendations for elevated troponin levels Trend LFTs, fu abdominal ultrasound Subjective ROS Limited/Unobtainable: No Allergies: Coded Allergies: PENICILLINS (Unverified Allergy, Mild, 12/05/18) PHENYTOIN (Verified Allergy, Unknown, 10/17/18) Uncoded Allergies: PENICILLIN (Allergy, Mild, 11/17/18) Subjective coded yesterday Objective Last 24 Hour Vital Signs Date Time Temp Pulse Resp B/P (MAP) Pulse Ox O2 Delivery O2 Flow Rate FiO2 12/11/18 07:17 75 18 40 12/11/18 05:32 81 21 40 12/11/18 05:00 82 21 130/73 (92) 100 12/11/18 04:00 71 12/11/18 04:00 50 12/11/18 04:00 73 26 127/48 (74) 100 3/19/19 04:00 Mechanical Ventilator 12/11/18 04:00 97.6 73 26 127/48 (74) 100 12/11/18 03:05 73 21 50 12/11/18 03:00 73 21 95/45 (62) 100 12/11/18 03:00 69 20 112/71 (85) 98 12/11/18 02:07 90 18 Mechanical Ventilator 100 12/11/18 02:00 100 12/11/18 01:34 98 12/11/18 01:28 90 18 100 12/11/18 00:00 97.6 65 20 101/62 (75) 92 12/11/18 00:00 Venturi Mask 8.0 12/11/18 00:00 64 12/10/18 20:00 Venturi Mask 8.0 12/10/18 20:00 98.0 78 28 114/71 (85) 94 12/10/18 20:00 69 12/10/18 19:45 94 Venturi Mask 8.0 40 12/10/18 19:45 Venturi Mask 8.0 40 12/10/18 19:44 71 18 Venturi Mask 8.0 40 12/10/18 16:00 98.2 78 20 154/98 (116) 97 12/10/18 16:00 Venturi Mask 8.0 12/10/18 16:00 66 12/10/18 12:55 99/66 12/10/18 12:00 72 12/10/18 12:00 8.0 40 12/10/18 12:00 97.7 72 22 99/66 (77) 96 12/10/18 12:00 Venturi Mask 8.0 Intake and Output 12/10/18 12/11/18 18:59 06:59 Intake Total 460 ml 125 ml Output Total 2000 ml 400 ml Balance -1540 ml -275 ml Free Water 60 ml 30 ml IV Total 55 ml Tube Feeding 150 ml 40 ml Blood Product 250 ml Gastric Drainage Total 400 ml Hemodialysis UF 2000 ml # Bowel Movements 2 1 Laboratory Tests 12/10/18 17:55: PTT Mixing Study [Pending], APTT Patient/Control Mix [Pending], Mix PTT Incubation Time [Pending], Mix PTT Normal/Saline 1:1 Immediate [Pending], Thrombin Time Normal Plasma [Pending] 12/11/18 02:55: Arterial Blood pH 7.406, Arterial Blood Partial Pressure CO2 40.6, Arterial Blood Partial Pressure O2 465.9H, Arterial Blood HCO3 24.9, Arterial Blood Oxygen Saturation 99.6, Arterial Blood Base Excess 0.2, Jose Test Positive 12/11/18 04:20: White Blood Count 24.1*H, Red Blood Count 2.95L, Hemoglobin 9.5#L, Hematocrit 30.7#L, Mean Corpuscular Volume 104H, Mean Corpuscular Hemoglobin 32.1H, Mean Corpuscular Hemoglobin Concent 30.9L, Red Cell Distribution Width 20.1H, Platelet Count 181, Mean Platelet Volume 9.6, Neutrophils (%) (Auto) , Lymphocytes (%) (Auto) , Monocytes (%) (Auto) , Eosinophils (%) (Auto) , Basophils (%) (Auto) , Neutrophils % (Manual) [Pending], Lymphocytes % (Manual) [Pending], Platelet Estimate [Pending], Platelet Morphology [Pending], Erythrocyte Sedimentation Rate [Pending], Prothrombin Time 14.4H, Prothromb Time International Ratio 1.4H, Activated Partial Thromboplast Time 36H, Sodium Level 136, Potassium Level 4.2, Chloride Level 98, Carbon Dioxide Level 25, Anion Gap 13, Blood Urea Nitrogen 56H, Creatinine 3.2H, Estimat Glomerular Filtration Rate 19.5, Glucose Level 70L, Calcium Level 9.4, Phosphorus Level 4.2 , Magnesium Level 2.1, Total Bilirubin 2.5H, Direct Bilirubin 2.0H, Aspartate Amino Transf (AST/SGOT) 45H, Alanine Aminotransferase (ALT/SGPT) 16, Alkaline Phosphatase 205H, C-Reactive Protein, Quantitative 28.8H, Total Protein 7.3, Albumin 1.8L, Globulin 5.5, Albumin/Globulin Ratio 0.3L, Random Vancomycin Level 20.1 Height (Feet): 5 Height (Inches): 4.00 Weight (Pounds): 136 General Appearance: lethargic EENT: normal ENT inspection Neck: supple Cardiovascular: tachycardia Respiratory/Chest: decreased breath sounds Abdomen: soft, hypoactive bowel sounds, distended Extremities: non-tender Antione Salomon MD Dec 11, 2018 08:55
[2018-12-11] MEDS ORDERED: LORazepam Inj 2mg/ml 1ml IV PRN (09:00)
[2018-12-11] MEDS ORDERED: Nephrovite tab (Rena-Vite) NG SCH (09:00)
[2018-12-11] MEDS ORDERED: Aspirin Baby 81mg NG SCH (09:00)
[2018-12-11] MEDS ORDERED: Renvela 800mg Pkt ORAL SCH (09:00)
[2018-12-11] MEDS ORDERED: Morphine Sulfate 4mg/ml Inj (IV USE ONLY) IVP PRN (09:00)
[2018-12-11] MEDS ORDERED: Pyridoxine 50mg tab ORAL SCH (09:00)
[2018-12-11] MEDS ORDERED: Docusate 100mg cap ORAL SCH (09:00)
--- NOTE | 2018-12-11 09:00 | NUR ---
RADIOLOGY DEPT., CHEST X-RAY DONE.-P.DYE
--- NOTE | 2018-12-11 10:00 | NUR ---
NURSE NOTES: Patient was turned and repositioned. Patient kept clean and dry.
--- NOTE | 2018-12-11 11:26 | NUR ---
NURSE NOTES: Keep pt NPO for possible right AKA per Dr. Michaels.
--- NOTE | 2018-12-11 11:41 | Surgery Progress Note ---
Surgery Progress Note Subjective Additional Comments respiratory insufficiency requiring intubation. currently in ICU. worsening leukocytosis. labs noted Objective Last 24 Hour Vital Signs Date Time Temp Pulse Resp B/P (MAP) Pulse Ox O2 Delivery O2 Flow Rate FiO2 12/11/18 11:00 80 19 102/53 (69) 100 12/11/18 10:57 80 17 40 12/11/18 10:00 79 17 106/23 (50) 98 12/11/18 09:00 79 22 108/43 (64) 100 12/11/18 08:56 79 21 40 12/11/18 08:00 72 12/11/18 08:00 Mechanical Ventilator 12/11/18 08:00 98.5 74 20 103/28 (53) 100 12/11/18 07:17 75 18 40 12/11/18 05:32 81 21 40 12/11/18 05:00 82 21 130/73 (92) 100 12/11/18 04:00 71 12/11/18 04:00 50 12/11/18 04:00 73 26 127/48 (74) 100 12/11/18 04:00 Mechanical Ventilator 12/11/18 04:00 97.6 73 26 127/48 (74) 100 12/11/18 03:05 73 21 50 12/11/18 03:00 73 21 95/45 (62) 100 12/11/18 03:00 69 20 112/71 (85) 98 12/11/18 02:07 90 18 Mechanical Ventilator 100 12/11/18 02:00 100 12/11/18 01:34 98 12/11/18 01:28 90 18 100 12/11/18 00:00 97.6 65 20 101/62 (75) 92 12/11/18 00:00 Venturi Mask 8.0 12/11/18 00:00 64 12/10/18 20:00 Venturi Mask 8.0 12/10/18 20:00 98.0 78 28 114/71 (85) 94 12/10/18 20:00 69 12/10/18 19:45 94 Venturi Mask 8.0 40 12/10/18 19:45 Venturi Mask 8.0 40 12/10/18 19:44 71 18 Venturi Mask 8.0 40 12/10/18 16:00 98.2 78 20 154/98 (116) 97 12/10/18 16:00 Venturi Mask 8.0 12/10/18 16:00 66 12/10/18 12:55 99/66 12/10/18 12:00 72 12/10/18 12:00 8.0 40 12/10/18 12:00 97.7 72 22 99/66 (77) 96 12/10/18 12:00 Venturi Mask 8.0 I&O Intake and Output 12/10/18 12/11/18 19:00 07:00 Intake Total 470 ml 85 ml Output Total 2000 ml 400 ml Balance -1530 ml -315 ml Free Water 60 ml 30 ml IV Total 55 ml Tube Feeding 160 ml 0 ml Blood Product 250 ml Gastric Drainage Total 400 ml Hemodialysis UF 2000 ml # Bowel Movements 2 1 Dressing: saturated Wound: other Drains: other Cardiovascular: RSR Respiratory: decreased breath sounds Abdomen: soft, non-tender, non-distended Extremities: cyanosis, other Laboratory Tests Test 12/10/18 17:55 12/11/18 02:55 12/11/18 04:20 PTT Mixing Study Pending APTT Patient/Control Mix Pending Mix PTT Incubation Time Pending Mix PTT Normal/Saline 1:1 Immediate Pending Thrombin Time Normal Plasma Pending Arterial Blood pH 7.406 (7.350-7.450) Arterial Blood Partial Pressure CO2 40.6 mmHg (35.0-45.0) Arterial Blood Partial Pressure O2 465.9 mmHg (75.0-100.0) H Arterial Blood HCO3 24.9 mmol/L (22.0-26.0) Arterial Blood Oxygen Saturation 99.6 % (95-100) Arterial Blood Base Excess 0.2 (-2-2) Jose Test Positive White Blood Count 24.1 K/UL (4.8-10.8) *H Red Blood Count 2.95 M/UL (4.70-6.10) L Hemoglobin 9.5 G/DL (14.2-18.0) #L Hematocrit 30.7 % (42.0-52.0) #L Mean Corpuscular Volume 104 FL (80-99) H Mean Corpuscular Hemoglobin 32.1 PG (27.0-31.0) H Mean Corpuscular Hemoglobin Concent 30.9 G/DL (32.0-36.0) L Red Cell Distribution Width 20.1 % (11.6-14.8) H Platelet Count 181 K/UL (150-450) Mean Platelet Volume 9.6 FL (6.5-10.1) Neutrophils (%) (Auto) % (45.0-75.0) Lymphocytes (%) (Auto) % (20.0-45.0) Monocytes (%) (Auto) % (1.0-10.0) Eosinophils (%) (Auto) % (0.0-3.0) Basophils (%) (Auto) % (0.0-2.0) Differential Total Cells Counted 100 Neutrophils % (Manual) 88 % (45-75) H Lymphocytes % (Manual) 2 % (20-45) L Monocytes % (Manual) 8 % (1-10) Eosinophils % (Manual) 0 % (0-3) Basophils % (Manual) 0 % (0-2) Band Neutrophils 2 % (0-8) Platelet Estimate Adequate Platelet Morphology Normal Hypochromasia 2+ Anisocytosis 3+ Macrocytosis 2+ Target Cells Rare Erythrocyte Sedimentation Rate 70 MM/HR (0-20) H Prothrombin Time 14.4 SEC (9.30-11.50) H Prothromb Time International Ratio 1.4 (0.9-1.1) H Activated Partial Thromboplast Time 36 SEC (23-33) H Sodium Level 136 MMOL/L (136-145) Potassium Level 4.2 MMOL/L (3.5-5.1) Chloride Level 98 MMOL/L (98-107) Carbon Dioxide Level 25 MMOL/L (21-32) Anion Gap 13 mmol/L (5-15) Blood Urea Nitrogen 56 mg/dL (7-18) H Creatinine 3.2 MG/DL (0.55-1.30) H Estimat Glomerular Filtration Rate 19.5 mL/min (>60) Glucose Level 70 MG/DL (74-106) L Calcium Level 9.4 MG/DL (8.5-10.1) Phosphorus Level 4.2 MG/DL (2.5-4.9) Magnesium Level 2.1 MG/DL (1.8-2.4) Total Bilirubin 2.5 MG/DL (0.2-1.0) H Direct Bilirubin 2.0 MG/DL (0.0-0.3) H Aspartate Amino Transf (AST/SGOT) 45 U/L (15-37) H Alanine Aminotransferase (ALT/SGPT) 16 U/L (12-78) Alkaline Phosphatase 205 U/L (46-116) H C-Reactive Protein, Quantitative 28.8 mg/dL (0.00-0.90) H Total Protein 7.3 G/DL (6.4-8.2) Albumin 1.8 G/DL (3.4-5.0) L Globulin 5.5 g/dL Albumin/Globulin Ratio 0.3 (1.0-2.7) L Random Vancomycin Level 20.1 ug/mL Plan Problems: (1) Sepsis Assessment & Plan: Patient presented on admission with necrotic wounds distal Right lower extremity and R foot -dorsal,lateral and medial aspects. R 3rd metatarsal is black. Chronic ulcer R heel that is also necrotic. Wounds/foot malodorous. Small amount brown exudate noted from dorsal wound. Soft medial necrotic 3cm area noted with denuded bleeding tissue just anterior to it. soft tissue overall with soft edema. possible abscess underlying. skin blistering and sloth noted. Partial thickness Sacral pressure injury. Base of wound is moist -viable with dark brown borders. Periwound without induration or erythema (L)4cm x (W)5cm. Currently afebrile and hemodynamically stable. Patient continues to have a leukocytosis. Still pending imaging. Given the appearance of the leg and wound there is significant concern for potential need of amputation. MRI right foot and ankle reviewed Tx.Plan: CTA chest abdomen pelvis with runoff pending Appreciate vascular and Podiatry eval for limb salvage Wash foot daily, apply xeroform and abd, wrap with kerlix Apply Moisture Barrier Paste (Triad /Calazime )to sacrum. Cover with Optifoam drsg .Change every 3 days and prn. APM/JANELL mattress. Reposition at least Q 2hours or as tolerated. Off-Load R heel with pillow. 12/08 - Had long discussion at bedside about condition, MRI findings, clinical exam and physical exam. Patient will likely need right BKA or depending on CTA possibly even AKA. He has had left BKA prior. I asked patient who is awake and alert about how he feels about this and he stated he is considering what to do. Recently he has asked for help with writing a living will for his children in [place]. He states he is not sure if he is interested in having another amputation even if his life is at risk. He states currently he is not ready or interested in amputation. I spoke more with him and really expressed the concerns given exam and clinical date. He seems to understand and stated he will consider it over the next few days. will await results and cont with follow with patient to see what he would like. thank you 12/11 - Have been monitoring patient for past few days and discussing care with consultants. CTA reviewed. labs noted. condition deteriorating. Patient now in ICU intubated for respiratory distress. He is awake, alert, and responsive. follows commands. he is able to nod his head, move his extremities, blink when asked. Discussion had at bedside and I explained to patient his deteriorating condition. I explained that we are making all attempts to contact sister in [place]. I reviewed his blood work with him, his clinical condition, and how severe the infection in his right leg is. We discussed his concerns about amputation prior and I addressed recommendations again. I explained to patient that based on CTA findings, exam, and results, a AKA is advised. I explained to him that he is very sick and may continue to deteriorate. I explained to him that AKA amputation is recommended strongly and can possibly save his life. When asked if he wishes to proceed at this time in attempts to save his life, patient expressed that he is ready and would like to proceed. Discussed with consultants and social worker assistant. Per social worker assistant, patient was clear he wanted full care initially including CPR, intubated , lines. He was initially reluctant for another amputation which he rightly should be but now is in understanding about the severity of his condition. Will proceed with right AKA today. (2) Hx of Damian Deutsch Dec 11, 2018 11:41
--- NOTE | 2018-12-11 11:42 | Pre-Procedure Note/Attestation ---
Pre-Procedure Note/Attestation Complete Prior to Procedure Planned Procedure: right Procedure Narrative: above knee amputation; right Indications for Procedure Pre-Operative Diagnosis: infected, gangrenous right foot/leg Attestation I attest that I discussed the nature of the procedure; its benefits; risks and complications; and alternatives (and the risks and benefits of such alternatives ), prior to the procedure, with the patient (or the patient's legal medical detail representative). I attest that, if there was a reasonable possibility of needing a blood transfusion, the patient (or the patient's legal medical detail representative) was given the [facility] standardized written summary, pursuant to the Noah Janet Blood Safety Act ([place] Health and Safety Code # 1645, as amended). I attest that I re-evaluated the patient just prior to the surgery and that there has been no change in the patient's H&P, except as documented below: Damian Michaels Dec 11, 2018 11:42
--- NOTE | 2018-12-11 12:04 | Diagnostic Imaging Report ---
Indication: Intubation Comparison: 12/09/2018 A single view chest radiograph was obtained. Findings: Endotracheal tube is just above the akhil in good position. Patchy interstitial densities demonstrated. NG tube noted. SVC stent and other stents in the right upper arm demonstrated. Heart is enlarged. Bones are osteopenic. IMPRESSION: Endotracheal tube in good position
--- NOTE | 2018-12-11 12:15 | NUR ---
NURSE NOTES: Patient awake, alert, able to communicate by nodding and shaking his head, able to follow commands. Patient agreed to right AKA by nodding his head. However, patient is too weak to sign the consent. Unable to reach pt's family. Dr. Xenia ya.
[2018-12-11] MEDS ORDERED: Bacitracin Oint 15gm Tube TOPIC ONE (12:41)
[2018-12-11] MEDS ORDERED: Bacitracin 50000 Units Vial ONE (12:41)
--- NOTE | 2018-12-11 12:49 | Diagnostic Imaging Report ---
Indication: Dyspnea Comparison: Earlier same day A single view chest radiograph was obtained. Findings: Tubes are stable. Heart size is stable. Patchy interstitial opacities in the some probable airspace opacities noted. IMPRESSION: No change from the prior exam
[2018-12-11] MEDS ORDERED: Nitroglycerin Patch 0.4mg TDERMAL SCH (13:00)
[2018-12-11] MEDS ORDERED: LR 1000ml ONE (13:00)
--- NOTE | 2018-12-11 13:00 | NUR ---
NURSE NOTES: Patient noted with BS 58, asymptomatic. Dextrose given. 15min recheck BS 131.
--- NOTE | 2018-12-11 13:05 | NUR ---
NURSE NOTES: Restraints discontinued. No skin breakdown noted. Patient awake, resting in bed comfortably.
--- NOTE | 2018-12-11 13:15 | NUR ---
NURSE NOTES: Patient off the unit for right AKA. No distress at this time.
[2018-12-11] MEDS ORDERED: NS Irrig 1000ml IRRIG ONE (13:16)
[2018-12-11] MEDS ORDERED: Zemuron 50mg/5ml Inj IV ONE (13:17)
--- NOTE | 2018-12-11 13:40 | Anethesia Preoperative Eval ---
Anesthesia Pre-op PMH/ROS General Date of Evaluation: Dec 11, 2018 Time of Evaluation: 13:01 Anesthesiologist: James ASA Score: ASA 5 - Emergency Mallampati Score Class I : Soft palate, uvula, fauces, pillars visible Class II: Soft palate, uvula, fauces visible Class III: Soft palate, base of uvula visible Class IV: Only hard plate visible Mallampati Classification: Class III Surgeon: Xenia Diagnosis: R Leg Cellulitis Surgical Procedure: R AKA Anesthesia History: none Family History: no anesthesia problems Allergies: Coded Allergies: PENICILLINS (Unverified Allergy, Mild, 12/05/18) PHENYTOIN (Verified Allergy, Unknown, 10/17/18) Uncoded Allergies: PENICILLIN (Allergy, Mild, 11/17/18) Medications: see eMAR Patient NPO?: Yes NPO Date: Dec 10, 2018 NPO Time: 2200 Past Medical History Cardiovascular: Reports: HTN, other - HL, CHF Pulmonary: Reports: COPD, other - Emphysema, Ventilatory Failure Gastrointestinal/Genitourinary: Reports: ESRD Neurologic/Psychiatric: Reports: CVA Endocrine: Reports: DM Hematology/Immune: Reports: anemia Other: other - Without operation patient would likely . PSxH Narrative: R Arm A/V Shunt Anesthesia Pre-op Phys. Exam Physician Exam Last Vital Signs Date Time Temp Pulse Resp B/P (MAP) Pulse Ox O2 Delivery O2 Flow Rate FiO2 12/11/18 12:45 82 18 40 12/11/18 12:00 Mechanical Ventilator 12/11/18 12:00 98.5 103/26 (51) 100 12/11/18 00:00 8.0 Constitutional: NAD Neurologic: CN 2-12 intact Cardiovascular: RRR Respiratory: CTA Gastrointestinal: S/NT/ND Airway Exam Mallampati Score: Class III MO: limited Neck: Intubated ROM: limited Teeth: missing Anesthesia Pre-op A/P Labs Hematology Test 12/11/18 04:20 White Blood Count 24.1 K/UL (4.8-10.8) *H Red Blood Count 2.95 M/UL (4.70-6.10) L Hemoglobin 9.5 G/DL (14.2-18.0) #L Hematocrit 30.7 % (42.0-52.0) #L Mean Corpuscular Volume 104 FL (80-99) H Mean Corpuscular Hemoglobin 32.1 PG (27.0-31.0) H Mean Corpuscular Hemoglobin Concent 30.9 G/DL (32.0-36.0) L Red Cell Distribution Width 20.1 % (11.6-14.8) H Platelet Count 181 K/UL (150-450) Mean Platelet Volume 9.6 FL (6.5-10.1) Neutrophils (%) (Auto) % (45.0-75.0) Lymphocytes (%) (Auto) % (20.0-45.0) Monocytes (%) (Auto) % (1.0-10.0) Eosinophils (%) (Auto) % (0.0-3.0) Basophils (%) (Auto) % (0.0-2.0) Differential Total Cells Counted 100 Neutrophils % (Manual) 88 % (45-75) H Lymphocytes % (Manual) 2 % (20-45) L Monocytes % (Manual) 8 % (1-10) Eosinophils % (Manual) 0 % (0-3) Basophils % (Manual) 0 % (0-2) Band Neutrophils 2 % (0-8) Platelet Estimate Adequate Platelet Morphology Normal Hypochromasia 2+ Anisocytosis 3+ Macrocytosis 2+ Target Cells Rare Erythrocyte Sedimentation Rate 70 MM/HR (0-20) H Coagulation Test 12/10/18 17:55 12/11/18 04:20 PTT Mixing Study Pending APTT Patient/Control Mix Pending Mix PTT Incubation Time Pending Mix PTT Normal/Saline 1:1 Immediate Pending Thrombin Time Normal Plasma Pending Prothrombin Time 14.4 SEC (9.30-11.50) H Prothromb Time International Ratio 1.4 (0.9-1.1) H Activated Partial Thromboplast Time 36 SEC (23-33) H Chemistry Test 12/11/18 04:20 Sodium Level 136 MMOL/L (136-145) Potassium Level 4.2 MMOL/L (3.5-5.1) Chloride Level 98 MMOL/L (98-107) Carbon Dioxide Level 25 MMOL/L (21-32) Anion Gap 13 mmol/L (5-15) Blood Urea Nitrogen 56 mg/dL (7-18) H Creatinine 3.2 MG/DL (0.55-1.30) H Estimat Glomerular Filtration Rate 19.5 mL/min (>60) Glucose Level 70 MG/DL (74-106) L Calcium Level 9.4 MG/DL (8.5-10.1) Phosphorus Level 4.2 MG/DL (2.5-4.9) Magnesium Level 2.1 MG/DL (1.8-2.4) Total Bilirubin 2.5 MG/DL (0.2-1.0) H Direct Bilirubin 2.0 MG/DL (0.0-0.3) H Aspartate Amino Transf (AST/SGOT) 45 U/L (15-37) H Alanine Aminotransferase (ALT/SGPT) 16 U/L (12-78) Alkaline Phosphatase 205 U/L (46-116) H C-Reactive Protein, Quantitative 28.8 mg/dL (0.00-0.90) H Total Protein 7.3 G/DL (6.4-8.2) Albumin 1.8 G/DL (3.4-5.0) L Globulin 5.5 g/dL Albumin/Globulin Ratio 0.3 (1.0-2.7) L Risk Assessment & Plan Assessment: ASA 5E Plan: GA Status Change Before Surgery: No Pre-Antibiotics Drug: Already On Given Within 1 Hr of Incision: Yes William Ramirez MD Dec 11, 2018 13:40
--- NOTE | 2018-12-11 13:41 | Immediate Post-Op Evaluation ---
Immediate Post-Op Evalulation Immediate Post-Op Evalulation Procedure: R LYUDMILAA Date of Evaluation: Dec 11, 2018 Time of Evaluation: 14:43 IV Fluids: 200 LR Blood Products: 0 Estimated Blood Loss: 30 Urinary Output: 0 Blood Pressure Systolic: 109 Blood Pressure Diastolic: 51 Pulse Rate: 72 Respiratory Rate: 15 - Mech Vent O2 Sat by Pulse Oximetry: 100 Temperature (Fahrenheit): 98.2 Pain Score (1-10): 2 Nausea: No Vomiting: No Complications 0 Patient Status: no response, patent, ventilated, none Hydration Status: adequate Drug: From Floor Given Within 1 Hr of Incision: Yes William Ramirez MD Dec 11, 2018 13:41
[2018-12-11] MEDS ORDERED: Vancomycin 1gm/D5W 275ml IVPB SCH ×2 (14:00)
--- NOTE | 2018-12-11 14:39 | NUR ---
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 98.5 HR 80 RR 16 B/P 103/26 AC 16 TV 600 FIO2 40% PEEP 5 WBC 24.1 ESR 70 BUN 56 CR 3.2 ALK PHOS 205 IS: MEROPENEM IV VANCO IV ICU STATUS
--- NOTE | 2018-12-11 14:49 | Brief Operative Note ---
Immediate Post Operative Note Operative Note Pre-op Diagnosis: infected, gangrenous right foot/leg Procedure: right above knee amputation Post-op Diagnosis: same as pre-op Surgeon: max Anesthesiologist: freddie Anesthesia: general Specimen: yes Complications: none Condition: stable Fluids: see records Estimated Blood Loss: volume - 50 Drains: none Implant(s) used?: No Damian Michaels Dec 11, 2018 14:49
--- NOTE | 2018-12-11 14:52 | General Progress Note ---
Assessment/Plan Assessment/Plan Assessment 68 year old male with PMH of DM, ESRD on HD (MWF - Last 12/03/18), s/p BKA, L chronic pressure ulcer and PVD was transferred from SNF for acute onset of shortness of breath and altered mental status, admitted for sepsis likely 2/2 R foot infection vs UTI vs PNA Plan #Severe Sepsis 2/2 R foot infection vs UTI vs PNA #Acute encephalopathy 2/2 infectious process - improved #Acute hypoxemic and hypercapnic respiratory failure s/p intubation -Cont A/C rate of 16, Vt 600, FI02 40%, PEEP +5 -Cont vancomycin and meropenen -ABG PRN, titrate vent PRN -Pt with good mental status, CPAP as tolerated -Pulmonary consult noted, will d/w Pulm re oxygen requirements -ID consult noted, cont broad spectrum IV abx -Surgery consult appreciated, rec amputation, -MRI right foot and ankle: +osteomyelitis and fluid collection likely abscess -Vascular and podiatry consulted -daily care per surgery -Plan for AKA today #Leukocytosis likly 2/2 infection vs leukomoid infection -28 >21 > 24>23 21 -Flow cytometry pending -Hematology consult appreciated #Dysphagia -NG tube placed -tube feeds restarted at 10cc/hr given high residuals advance as tolerated to goal of 40cc/hr -GI consult appreciated #DM now hypoglycemic -hypoglycemia likley 2/2 sepsis -hold antiDM medications -FSG Q6hrs -Currently on min tube feeds -Monitor respiratory status #ESRD on HD (MWF) via R arm fistula #HyperKalemia #HypoNA -no signs of fluid overload -nephrology consult appreciated -CTM electrolytes -HD per renal -Last HD 12/10 Code: Full I spent 75 minutes on this patient's case, and 36 mins was dedicated to critical care Critical Care Services performed include: Telemetry Review Hemodynamic measurement interpretation Laboratory data review and interpretation Radiology image review and interpretation Ventilator setting review, management, and adjustment Interpretation of ABG's Discussion of patient's care with ICU team, ICU Nursing staff and/or consulting services Time of note may not represent time of encounter Subjective Date patient seen: Dec 11, 2018 ROS Limited/Unobtainable: Yes Allergies: Coded Allergies: PENICILLINS (Unverified Allergy, Mild, 12/05/18) PHENYTOIN (Verified Allergy, Unknown, 10/17/18) Uncoded Allergies: PENICILLIN (Allergy, Mild, 11/17/18) Subjective Pt noted to be in PEA arrest, s/p code blue, pt intubated and transferred to ICU. On examination this AM, pt opens eyes to commands, calm, no signs of distress, able to nod and shake head. After evaluation by surgical team, pt has agreed for R AKA today. Objective Last 24 Hour Vital Signs Date Time Temp Pulse Resp B/P (MAP) Pulse Ox O2 Delivery O2 Flow Rate FiO2 12/11/18 14:26 72 15 100 12/11/18 12:45 82 18 40 12/11/18 12:00 40 12/11/18 12:00 Mechanical Ventilator 12/11/18 12:00 98.5 80 16 103/26 (51) 100 12/11/18 11:00 80 19 102/53 (69) 100 12/11/18 10:57 80 17 40 12/11/18 10:00 79 17 106/23 (50) 98 12/11/18 09:00 79 22 108/43 (64) 100 12/11/18 08:56 79 21 40 12/11/18 08:00 72 12/11/18 08:00 50 12/11/18 08:00 Mechanical Ventilator 12/11/18 08:00 98.5 74 20 103/28 (53) 100 12/11/18 07:17 75 18 40 12/11/18 05:32 81 21 40 12/11/18 05:00 82 21 130/73 (92) 100 12/11/18 04:00 71 12/11/18 04:00 50 12/11/18 04:00 73 26 127/48 (74) 100 12/11/18 04:00 Mechanical Ventilator 12/11/18 04:00 97.6 73 26 127/48 (74) 100 12/11/18 03:05 73 21 50 12/11/18 03:00 73 21 95/45 (62) 100 12/11/18 03:00 69 20 112/71 (85) 98 12/11/18 02:07 90 18 Mechanical Ventilator 100 12/11/18 02:00 100 12/11/18 01:34 98 12/11/18 01:28 90 18 100 12/11/18 00:00 97.6 65 20 101/62 (75) 92 12/11/18 00:00 Venturi Mask 8.0 12/11/18 00:00 64 12/10/18 20:00 Venturi Mask 8.0 12/10/18 20:00 98.0 78 28 114/71 (85) 94 12/10/18 20:00 69 12/10/18 19:45 94 Venturi Mask 8.0 40 12/10/18 19:45 Venturi Mask 8.0 40 12/10/18 19:44 71 18 Venturi Mask 8.0 40 12/10/18 16:00 98.2 78 20 154/98 (116) 97 12/10/18 16:00 Venturi Mask 8.0 12/10/18 16:00 66 Intake and Output 12/10/18 12/11/18 19:00 07:00 Intake Total 470 ml 85 ml Output Total 2000 ml 400 ml Balance -1530 ml -315 ml Free Water 60 ml 30 ml IV Total 55 ml Tube Feeding 160 ml 0 ml Blood Product 250 ml Gastric Drainage Total 400 ml Hemodialysis UF 2000 ml # Bowel Movements 2 1 Laboratory Tests 12/10/18 17:55: PTT Mixing Study [Pending], APTT Patient/Control Mix [Pending], Mix PTT Incubation Time [Pending], Mix PTT Normal/Saline 1:1 Immediate [Pending], Thrombin Time Normal Plasma [Pending] 12/11/18 02:55: Arterial Blood pH 7.406, Arterial Blood Partial Pressure CO2 40.6, Arterial Blood Partial Pressure O2 465.9H, Arterial Blood HCO3 24.9, Arterial Blood Oxygen Saturation 99.6, Arterial Blood Base Excess 0.2, Jose Test Positive 12/11/18 04:20: White Blood Count 24.1*H, Red Blood Count 2.95L, Hemoglobin 9.5#L, Hematocrit 30.7#L, Mean Corpuscular Volume 104H, Mean Corpuscular Hemoglobin 32.1H, Mean Corpuscular Hemoglobin Concent 30.9L, Red Cell Distribution Width 20.1H, Platelet Count 181, Mean Platelet Volume 9.6, Neutrophils (%) (Auto) , Lymphocytes (%) (Auto) , Monocytes (%) (Auto) , Eosinophils (%) (Auto) , Basophils (%) (Auto) , Differential Total Cells Counted 100, Neutrophils % ( Manual) 88H, Lymphocytes % (Manual) 2L, Monocytes % (Manual) 8, Eosinophils % ( Manual) 0, Basophils % (Manual) 0, Band Neutrophils 2, Platelet Estimate Adequate, Platelet Morphology Normal, Hypochromasia 2+, Anisocytosis 3+, Macrocytosis 2+, Target Cells Rare, Erythrocyte Sedimentation Rate 70H, Prothrombin Time 14.4H, Prothromb Time International Ratio 1.4H, Activated Partial Thromboplast Time 36H, Sodium Level 136, Potassium Level 4.2, Chloride Level 98, Carbon Dioxide Level 25, Anion Gap 13, Blood Urea Nitrogen 56H, Creatinine 3.2H, Estimat Glomerular Filtration Rate 19.5, Glucose Level 70L, Calcium Level 9.4, Phosphorus Level 4.2, Magnesium Level 2.1, Total Bilirubin 2.5H, Direct Bilirubin 2.0H, Aspartate Amino Transf (AST/SGOT) 45H, Alanine Aminotransferase (ALT/SGPT) 16, Alkaline Phosphatase 205H, C-Reactive Protein, Quantitative 28.8H, Total Protein 7.3, Albumin 1.8L, Globulin 5.5, Albumin/ Globulin Ratio 0.3L, Random Vancomycin Level 20.1 Height (Feet): 5 Height (Inches): 4.00 Weight (Pounds): 136 Objective General: calm, appears stated age, intubated Head: normocephalic, without obvious abnormality, atraumatic Eyes: conjunctivae/corneas clear. PERRL, EOM's intact Throat: lips, mucosa, and tongue normal. MMM Neck: supple, symmetrical, trachea midline, and no JVD Lungs: b/l air entry Heart: regular rate and rhythm, S1, S2 normal, no murmur, click, rub or gallop Abdomen: soft, non-tender, non-distended, bowel sounds normal; no masses or organomegaly Extremities: L BKA, R stage 4 heel ulcer, R dorsum with dark discoloration, necrotic tissue, foul odor, +drainage Pulses: +1 pulse Skin: skin color, texture, turgor normal; no rashes or lesions Neurologic: grossly normal Frieda Miller MD Dec 11, 2018 14:52
--- NOTE | 2018-12-11 15:03 | Infectious Diseases Prog Note ---
Assessment/Plan Assessment/Plan ASSESSMENT AND PLAN: 1. right ankle/foot/leg infected wound/gangrene/necrosis/?ischemia/osteomyelitis , sepsis, esbl e.coli uti, MRSA pna, leukocytosis - s/p right aka, on vent post op - vancomycin and meropenem - monitor labs and chest x-ray - surgery, podiatry and vascular surgery f/u - notes reviewed - d/w RN 2. The patient has end-stage renal disease on hemodialysis. He has a shunt. No hemodialysis line. 3. History of UTI. 4. Anemia. 5. Elevated creatinine. 6. Renal failure. 7. The patient has history of diabetes. 8. Hypertension. 9. COPD. 10. CHF. 11. Hypertension and diabetes treatment per primary. 12. Allergies to penicillin and phenytoin, tolerates meropenem. 13. Social history is negative for smoking, alcohol, or drug abuse. 14. Family history is noncontributory. 15. MAR was noted. 16. Case discussed with RN. 17. Continue treatment per primary consultants. 18. Case communicated with Dr. Frieda Clay. 19. Orders were noted and entered. 20. Continue treatment per primary consultants. 21. mrsa and vre colonization Subjective Constitutional: Reports: other - on vent post right aka; Denies: fever HEENT: Reports: congestion Respiratory: Denies: shortness of breath Cardiovascular: Reports: other - no pressors; Denies: chest pain, palpitations Gastrointestinal/Abdominal: Denies: nausea, vomiting, diarrhea Genitourinary: Reports: other - no negro Psychiatric: Reports: other - na Skin: Denies: rash Endocrine: Reports: other - na Hematologic: Denies: bleeding Musculoskeletal: Reports: pain - na Allergies: Coded Allergies: PENICILLINS (Unverified Allergy, Mild, 12/05/18) PHENYTOIN (Verified Allergy, Unknown, 10/17/18) Uncoded Allergies: PENICILLIN (Allergy, Mild, 11/17/18) Objective Vital Signs Last 24 Hour Vital Signs Date Time Temp Pulse Resp B/P (MAP) Pulse Ox O2 Delivery O2 Flow Rate FiO2 12/11/18 14:26 72 15 100 12/11/18 12:45 82 18 40 12/11/18 12:00 40 12/11/18 12:00 Mechanical Ventilator 12/11/18 12:00 98.5 80 16 103/26 (51) 100 12/11/18 11:00 80 19 102/53 (69) 100 12/11/18 10:57 80 17 40 12/11/18 10:00 79 17 106/23 (50) 98 12/11/18 09:00 79 22 108/43 (64) 100 12/11/18 08:56 79 21 40 12/11/18 08:00 72 12/11/18 08:00 50 12/11/18 08:00 Mechanical Ventilator 12/11/18 08:00 98.5 74 20 103/28 (53) 100 12/11/18 07:17 75 18 40 12/11/18 05:32 81 21 40 12/11/18 05:00 82 21 130/73 (92) 100 12/11/18 04:00 71 12/11/18 04:00 50 12/11/18 04:00 73 26 127/48 (74) 100 12/11/18 04:00 Mechanical Ventilator 12/11/18 04:00 97.6 73 26 127/48 (74) 100 12/11/18 03:05 73 21 50 12/11/18 03:00 73 21 95/45 (62) 100 12/11/18 03:00 69 20 112/71 (85) 98 12/11/18 02:07 90 18 Mechanical Ventilator 100 12/11/18 02:00 100 12/11/18 01:34 98 12/11/18 01:28 90 18 100 12/11/18 00:00 97.6 65 20 101/62 (75) 92 12/11/18 00:00 Venturi Mask 8.0 12/11/18 00:00 64 12/10/18 20:00 Venturi Mask 8.0 12/10/18 20:00 98.0 78 28 114/71 (85) 94 12/10/18 20:00 69 12/10/18 19:45 94 Venturi Mask 8.0 40 12/10/18 19:45 Venturi Mask 8.0 40 12/10/18 19:44 71 18 Venturi Mask 8.0 40 12/10/18 16:00 98.2 78 20 154/98 (116) 97 12/10/18 16:00 Venturi Mask 8.0 12/10/18 16:00 66 Height (Feet): 5 Height (Inches): 4.00 Weight (Pounds): 136 General Appearance: other - intubated, on vent, lethargic, no pr HEENT: normocephalic, atraumatic, anicteric Respiratory/Chest: crackles/rales, rhonchi - bilaterally Cardiovascular: normal rate, regular rhythm, no gallop/murmur, no JVD Abdomen: normal bowel sounds, soft, non tender, no organomegaly, non distended Genitourinary: other - no negro Extremities: other - right leg amputation - aka Skin: no rash 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 Bilateral interstitial and airspace opacities appear similar to the previous study. Right arm and innominate venous stents are again demonstrated. MRI - right ankle - Impression: Marrow edema, suspicious for osteomyelitis, involving the posterior calcaneus, talus, middle and lateral cuneiforms Multiple fluid collections versus very edematous phlegmon, as described. These could represent abscesses Evidence of heel ulceration and marked thinning of the skin, consistent with stated clinical history of ulceration and necrotic wound Chest x-ray - 12/09/18 - COMPARISON: Chest x-ray dated 12/07/18 FINDINGS: Lungs: No significant interval change of bilateral interstitial and airspace opacities. Pleural space: Unremarkable. The costophrenic angles are sharp. No visible pneumothorax. Heart: Unremarkable. No cardiomegaly. Mediastinum: Unremarkable. Bones/joints: Degenerative changes throughout the visualized spine and shoulder joints. Vasculature: Unchanged positioning of the right arm and innominate vein stents. Atherosclerotic calcifications within the aortic arch. Tubes, lines and devices: Stable positioning of the NG tube. Telemetry leads overlie the thorax. IMPRESSION: No significant interval change of bilateral interstitial and airspace opacities. Chest x-ray - 12/11/18 - Procedure: XRAY Chest 1v Indication: Intubation Comparison: 12/09/2018 A single view chest radiograph was obtained. Findings: Endotracheal tube is just above the akhil in good position. Patchy interstitial densities demonstrated. NG tube noted. SVC stent and other stents in the right upper arm demonstrated. Heart is enlarged. Bones are osteopenic. IMPRESSION: Endotracheal tube in good position Microbiology Date/Time Source Procedure Growth Status 12/05/18 01:43 Blood Blood Culture - Final NO GROWTH AFTER 5 DAYS Complete 12/05/18 15:00 Sputum Gram Stain - Final Complete 12/05/18 15:00 Sputum Culture - Final Staphylococcus Aureus - Mrsa Cynthia Albicans Complete 12/09/18 12:30 Stool Clostridium difficile Toxin Assay - Final Complete 12/05/18 11:30 Urine,Clean Catch Urine Culture - Final Escherichia Coli - Esbl Complete 12/04/18 20:55 Rectum VRE Culture - Final Enterococcus Faecium - Vre Complete Microbiology Date/Time Source Procedure Growth Status 12/09/18 12:30 Stool Clostridium difficile Toxin Assay - Final Complete Laboratory Tests Test 12/10/18 17:55 12/11/18 02:55 12/11/18 04:20 PTT Mixing Study Pending APTT Patient/Control Mix Pending Mix PTT Incubation Time Pending Mix PTT Normal/Saline 1:1 Immediate Pending Thrombin Time Normal Plasma Pending Arterial Blood pH 7.406 (7.350-7.450) Arterial Blood Partial Pressure CO2 40.6 mmHg (35.0-45.0) Arterial Blood Partial Pressure O2 465.9 mmHg (75.0-100.0) H Arterial Blood HCO3 24.9 mmol/L (22.0-26.0) Arterial Blood Oxygen Saturation 99.6 % (95-100) Arterial Blood Base Excess 0.2 (-2-2) Jose Test Positive White Blood Count 24.1 K/UL (4.8-10.8) *H Red Blood Count 2.95 M/UL (4.70-6.10) L Hemoglobin 9.5 G/DL (14.2-18.0) #L Hematocrit 30.7 % (42.0-52.0) #L Mean Corpuscular Volume 104 FL (80-99) H Mean Corpuscular Hemoglobin 32.1 PG (27.0-31.0) H Mean Corpuscular Hemoglobin Concent 30.9 G/DL (32.0-36.0) L Red Cell Distribution Width 20.1 % (11.6-14.8) H Platelet Count 181 K/UL (150-450) Mean Platelet Volume 9.6 FL (6.5-10.1) Neutrophils (%) (Auto) % (45.0-75.0) Lymphocytes (%) (Auto) % (20.0-45.0) Monocytes (%) (Auto) % (1.0-10.0) Eosinophils (%) (Auto) % (0.0-3.0) Basophils (%) (Auto) % (0.0-2.0) Differential Total Cells Counted 100 Neutrophils % (Manual) 88 % (45-75) H Lymphocytes % (Manual) 2 % (20-45) L Monocytes % (Manual) 8 % (1-10) Eosinophils % (Manual) 0 % (0-3) Basophils % (Manual) 0 % (0-2) Band Neutrophils 2 % (0-8) Platelet Estimate Adequate Platelet Morphology Normal Hypochromasia 2+ Anisocytosis 3+ Macrocytosis 2+ Target Cells Rare Erythrocyte Sedimentation Rate 70 MM/HR (0-20) H Prothrombin Time 14.4 SEC (9.30-11.50) H Prothromb Time International Ratio 1.4 (0.9-1.1) H Activated Partial Thromboplast Time 36 SEC (23-33) H Sodium Level 136 MMOL/L (136-145) Potassium Level 4.2 MMOL/L (3.5-5.1) Chloride Level 98 MMOL/L (98-107) Carbon Dioxide Level 25 MMOL/L (21-32) Anion Gap 13 mmol/L (5-15) Blood Urea Nitrogen 56 mg/dL (7-18) H Creatinine 3.2 MG/DL (0.55-1.30) H Estimat Glomerular Filtration Rate 19.5 mL/min (>60) Glucose Level 70 MG/DL (74-106) L Calcium Level 9.4 MG/DL (8.5-10.1) Phosphorus Level 4.2 MG/DL (2.5-4.9) Magnesium Level 2.1 MG/DL (1.8-2.4) Total Bilirubin 2.5 MG/DL (0.2-1.0) H Direct Bilirubin 2.0 MG/DL (0.0-0.3) H Aspartate Amino Transf (AST/SGOT) 45 U/L (15-37) H Alanine Aminotransferase (ALT/SGPT) 16 U/L (12-78) Alkaline Phosphatase 205 U/L (46-116) H C-Reactive Protein, Quantitative 28.8 mg/dL (0.00-0.90) H Total Protein 7.3 G/DL (6.4-8.2) Albumin 1.8 G/DL (3.4-5.0) L Globulin 5.5 g/dL Albumin/Globulin Ratio 0.3 (1.0-2.7) L Random Vancomycin Level 20.1 ug/mL Current Medications Medications (Trade) Dose Ordered Sig/Ronald Route PRN Reason Start Time Stop Time Status Last Admin Dose Admin Acetaminophen/ Hydrocodone Bitart ([place] 5/325) 1 tab Q4H PRN ORAL For Severe Pain 12/11/18 06:00 12/12/18 09:57 Dextrose (Dextrose 50%) 25 ml Q30M PRN IV Hypoglycemia 12/11/18 02:45 01/03/19 22:44 12/11/18 06:23 Dextrose (Dextrose 50%) 50 ml Q30M PRN IV Hypoglycemia 12/11/18 02:45 01/03/19 22:44 12/11/18 12:38 Docusate Sodium (Colace) 200 mg DAILY NG 12/11/18 09:00 01/10/19 08:59 12/11/18 08:48 Lansoprazole (Prevacid) 30 mg DAILY NG 12/11/18 09:00 01/08/19 08:59 12/11/18 08:53 Lorazepam (Ativan 2mg/ml 1ml) 2 mg Q4H PRN IV For Anxiety 12/11/18 09:00 12/18/18 08:59 Meropenem 500 mg/ Sodium Chloride 55 ml @ 110 mls/hr Q24H IVPB 12/11/18 21:00 12/14/18 20:59 Metoclopramide HCl (Reglan) 5 mg Q8H PRN IVP Nausea & Vomiting 12/11/18 09:00 01/10/19 08:59 Morphine Sulfate (Morphine Sulfate) 4 mg Q4H PRN IVP SEVERE BREAKTHROUGH PAIN 12/11/18 09:00 12/18/18 08:59 Povidone Iodine (Betadine María) 1 applic QHS TOPIC 12/11/18 21:00 01/05/19 20:59 Pyridoxine HCl (Vitamin B6) 25 mg DAILY NG 12/11/18 09:00 01/07/19 08:59 12/11/18 08:49 Sevelamer Carbonate (Renvela) 800 mg THREE TIMES A DAY NG 12/11/18 09:00 01/07/19 08:59 12/11/18 08:49 Vancomycin HCl (Vanco rx to dose) 1 ea DAILY PRN MISC Per rx protocol 12/11/18 09:00 01/08/19 12:29 Vancomycin HCl 1 gm/Dextrose 275 ml @ 183.708 mls/hr Q48H IVPB 12/11/18 14:00 12/16/18 13:59 Vitamin B Complex/ Vit C/Folic Acid (Nephrovite) 1 tab DAILY NG 12/11/18 09:00 01/07/19 08:59 12/11/18 08:52 Anshu Munguia MD Dec 11, 2018 15:03
--- NOTE | 2018-12-11 15:20 | NUR ---
NURSE NOTES: Patient back from Right AKA. Patient is still sedated, resting in bed. Right AKA surgical site dressing intact, clean and dry.
--- NOTE | 2018-12-11 15:34 | Nephrology Progress Note ---
Assessment/Plan Problem List: (1) ESRF (end stage renal failure) (2) Leukocytosis Assessment: sepsis (3) CHF (congestive heart failure) (4) Acute respiratory failure (5) Hyperbilirubinemia Assessment admitted with sepsis and shortness of breath (1) ESRD (end stage renal disease) right arm fistula (2) Possible Fluid overload, unspecified (3) h/o Bradycardia (4) Anemia (5) h/o Pleural effusion (6) Elevated troponin (7) Allergy Dialntin & PCN (8) Elevated Bili Plan intubated on Vent HD last 12/10 done Molina IV bolus adjust BP meds 2D Echo 55% EjFx stop beta blockers for low HR hydralazin and procardia as needed reviewe CXR : Pneumonia per consultants Subjective ROS Limited/Unobtainable: Yes Objective Objective Last 24 Hour Vital Signs Date Time Temp Pulse Resp B/P (MAP) Pulse Ox O2 Delivery O2 Flow Rate FiO2 12/11/18 15:01 75 16 40 12/11/18 14:26 72 15 100 12/11/18 12:45 82 18 40 12/11/18 12:00 40 12/11/18 12:00 Mechanical Ventilator 12/11/18 12:00 98.5 80 16 103/26 (51) 100 12/11/18 11:00 80 19 102/53 (69) 100 12/11/18 10:57 80 17 40 12/11/18 10:00 79 17 106/23 (50) 98 12/11/18 09:00 79 22 108/43 (64) 100 12/11/18 08:56 79 21 40 12/11/18 08:00 72 12/11/18 08:00 50 12/11/18 08:00 Mechanical Ventilator 12/11/18 08:00 98.5 74 20 103/28 (53) 100 12/11/18 07:17 75 18 40 12/11/18 05:32 81 21 40 12/11/18 05:00 82 21 130/73 (92) 100 12/11/18 04:00 71 12/11/18 04:00 50 12/11/18 04:00 73 26 127/48 (74) 100 12/11/18 04:00 Mechanical Ventilator 12/11/18 04:00 97.6 73 26 127/48 (74) 100 12/11/18 03:05 73 21 50 12/11/18 03:00 73 21 95/45 (62) 100 12/11/18 03:00 69 20 112/71 (85) 98 12/11/18 02:07 90 18 Mechanical Ventilator 100 12/11/18 02:00 100 12/11/18 01:34 98 12/11/18 01:28 90 18 100 12/11/18 00:00 97.6 65 20 101/62 (75) 92 12/11/18 00:00 Venturi Mask 8.0 12/11/18 00:00 64 12/10/18 20:00 Venturi Mask 8.0 12/10/18 20:00 98.0 78 28 114/71 (85) 94 12/10/18 20:00 69 12/10/18 19:45 94 Venturi Mask 8.0 40 12/10/18 19:45 Venturi Mask 8.0 40 12/10/18 19:44 71 18 Venturi Mask 8.0 40 12/10/18 16:00 98.2 78 20 154/98 (116) 97 12/10/18 16:00 Venturi Mask 8.0 12/10/18 16:00 66 Intake and Output 12/10/18 12/11/18 19:00 07:00 Intake Total 470 ml 85 ml Output Total 2000 ml 400 ml Balance -1530 ml -315 ml Free Water 60 ml 30 ml IV Total 55 ml Tube Feeding 160 ml 0 ml Blood Product 250 ml Gastric Drainage Total 400 ml Hemodialysis UF 2000 ml # Bowel Movements 2 1 Laboratory Tests 12/10/18 17:55: PTT Mixing Study [Pending], APTT Patient/Control Mix [Pending], Mix PTT Incubation Time [Pending], Mix PTT Normal/Saline 1:1 Immediate [Pending], Thrombin Time Normal Plasma [Pending] 12/11/18 02:55: Arterial Blood pH 7.406, Arterial Blood Partial Pressure CO2 40.6, Arterial Blood Partial Pressure O2 465.9H, Arterial Blood HCO3 24.9, Arterial Blood Oxygen Saturation 99.6, Arterial Blood Base Excess 0.2, Jose Test Positive 12/11/18 04:20: White Blood Count 24.1*H, Red Blood Count 2.95L, Hemoglobin 9.5#L, Hematocrit 30.7#L, Mean Corpuscular Volume 104H, Mean Corpuscular Hemoglobin 32.1H, Mean Corpuscular Hemoglobin Concent 30.9L, Red Cell Distribution Width 20.1H, Platelet Count 181, Mean Platelet Volume 9.6, Neutrophils (%) (Auto) , Lymphocytes (%) (Auto) , Monocytes (%) (Auto) , Eosinophils (%) (Auto) , Basophils (%) (Auto) , Differential Total Cells Counted 100, Neutrophils % ( Manual) 88H, Lymphocytes % (Manual) 2L, Monocytes % (Manual) 8, Eosinophils % ( Manual) 0, Basophils % (Manual) 0, Band Neutrophils 2, Platelet Estimate Adequate, Platelet Morphology Normal, Hypochromasia 2+, Anisocytosis 3+, Macrocytosis 2+, Target Cells Rare, Erythrocyte Sedimentation Rate 70H, Prothrombin Time 14.4H, Prothromb Time International Ratio 1.4H, Activated Partial Thromboplast Time 36H, Sodium Level 136, Potassium Level 4.2, Chloride Level 98, Carbon Dioxide Level 25, Anion Gap 13, Blood Urea Nitrogen 56H, Creatinine 3.2H, Estimat Glomerular Filtration Rate 19.5, Glucose Level 70L, Calcium Level 9.4, Phosphorus Level 4.2, Magnesium Level 2.1, Total Bilirubin 2.5H, Direct Bilirubin 2.0H, Aspartate Amino Transf (AST/SGOT) 45H, Alanine Aminotransferase (ALT/SGPT) 16, Alkaline Phosphatase 205H, C-Reactive Protein, Quantitative 28.8H, Total Protein 7.3, Albumin 1.8L, Globulin 5.5, Albumin/ Globulin Ratio 0.3L, Random Vancomycin Level 20.1 Height (Feet): 5 Height (Inches): 4.00 Weight (Pounds): 136 General Appearance: lethargic EENT: other - on vent Cardiovascular: normal rate Respiratory/Chest: decreased breath sounds Abdomen: distended Extremities: other Objective no change Alessandro Price MD Dec 11, 2018 15:33
--- NOTE | 2018-12-11 16:00 | NUR ---
NURSE NOTES: Inserted negro cath per Dr. Price. Patient tolerated well. 5ml yellow urine out.
--- NOTE | 2018-12-11 16:19 | General Progress Note ---
Assessment/Plan Assessment/Plan ASSESSMENT/RECS: # Leukocytosis/Elevated white blood cell count, unspecified likely related to underlying stress reaction, smoking, or underlying infection (especially if bandemia is noted) --> have reviewed peripheral smear and bandemia/neutrophilia noted --> esr and crp elevated on prior labs --> continue on meropenem and vancomycin started by ID team --> monitor for resolution 28k-->21k-->24-->21k-->24 --> flow cytometry pending # Anemia of chronic disease due to underlying chronic medical issues, multifactorial --> Anemia workup has been reviewed, Ferritin 1678 --> No evidence of hemolysis is noted, peripheral smear has been reviewed. --> Hgb goal >7. Transfuse prn. --> Epogen or iron at this time is not particularly indicated --> Medications have been reviewed # Coagulopathy with elevated inr --> consider repeat in one week --> obtain a mixing study # Sepsis, elevated white count --> on meropenem and vancomycin, as per id --> appreciate ID recs # End-stage renal disease on hemodialysis --> appreciate nephro recs --> hd as needed # R foot infection vs UTI vs PNA --> appreciate ID recs --> right AKA 12/11/18 # Acute hypercapnic respiratory failure , Cont BiPAP, --> appreciate pulm recs # Intubated The timing of this note does not necessarily reflect the time of the patient was seen. Greatly appreciate consultation! Subjective ROS Limited/Unobtainable: Yes Allergies: Coded Allergies: PENICILLINS (Unverified Allergy, Mild, 12/05/18) PHENYTOIN (Verified Allergy, Unknown, 10/17/18) Uncoded Allergies: PENICILLIN (Allergy, Mild, 11/17/18) Subjective 12/07: seen by bedside, leukocytosis trending up at 24, on abx, hgb 7.6, no events 12/09: Pt is resting in bed, wbc remains elevated, 12/10: on abx, wbc is better, anemia panel reviewed, getting hd 12/11: Pt is s/p code blue, pt intubated and transferred to ICU, right AKA schedule today. wbc elevated at 24 Objective Last 24 Hour Vital Signs Date Time Temp Pulse Resp B/P (MAP) Pulse Ox O2 Delivery O2 Flow Rate FiO2 12/11/18 15:30 74 16 102/33 (56) 98 12/11/18 15:01 75 16 40 12/11/18 15:00 75 15 114/37 (62) 99 12/11/18 14:26 72 15 100 12/11/18 12:45 82 18 40 12/11/18 12:00 40 12/11/18 12:00 Mechanical Ventilator 12/11/18 12:00 98.5 80 16 103/26 (51) 100 12/11/18 11:00 80 19 102/53 (69) 100 12/11/18 10:57 80 17 40 12/11/18 10:00 79 17 106/23 (50) 98 12/11/18 09:00 79 22 108/43 (64) 100 12/11/18 08:56 79 21 40 12/11/18 08:00 72 12/11/18 08:00 50 12/11/18 08:00 Mechanical Ventilator 12/11/18 08:00 98.5 74 20 103/28 (53) 100 12/11/18 07:17 75 18 40 12/11/18 05:32 81 21 40 12/11/18 05:00 82 21 130/73 (92) 100 12/11/18 04:00 71 12/11/18 04:00 50 12/11/18 04:00 73 26 127/48 (74) 100 12/11/18 04:00 Mechanical Ventilator 12/11/18 04:00 97.6 73 26 127/48 (74) 100 12/11/18 03:05 73 21 50 12/11/18 03:00 73 21 95/45 (62) 100 12/11/18 03:00 69 20 112/71 (85) 98 12/11/18 02:07 90 18 Mechanical Ventilator 100 12/11/18 02:00 100 12/11/18 01:34 98 12/11/18 01:28 90 18 100 12/11/18 00:00 97.6 65 20 101/62 (75) 92 12/11/18 00:00 Venturi Mask 8.0 12/11/18 00:00 64 12/10/18 20:00 Venturi Mask 8.0 12/10/18 20:00 98.0 78 28 114/71 (85) 94 12/10/18 20:00 69 12/10/18 19:45 94 Venturi Mask 8.0 40 12/10/18 19:45 Venturi Mask 8.0 40 12/10/18 19:44 71 18 Venturi Mask 8.0 40 Intake and Output 12/10/18 12/11/18 19:00 07:00 Intake Total 470 ml 85 ml Output Total 2000 ml 400 ml Balance -1530 ml -315 ml Free Water 60 ml 30 ml IV Total 55 ml Tube Feeding 160 ml 0 ml Blood Product 250 ml Gastric Drainage Total 400 ml Hemodialysis UF 2000 ml # Bowel Movements 2 1 Laboratory Tests 12/10/18 17:55: PTT Mixing Study [Pending], APTT Patient/Control Mix [Pending], Mix PTT Incubation Time [Pending], Mix PTT Normal/Saline 1:1 Immediate [Pending], Thrombin Time Normal Plasma [Pending] 12/11/18 02:55: Arterial Blood pH 7.406, Arterial Blood Partial Pressure CO2 40.6, Arterial Blood Partial Pressure O2 465.9H, Arterial Blood HCO3 24.9, Arterial Blood Oxygen Saturation 99.6, Arterial Blood Base Excess 0.2, Jose Test Positive 12/11/18 04:20: White Blood Count 24.1*H, Red Blood Count 2.95L, Hemoglobin 9.5#L, Hematocrit 30.7#L, Mean Corpuscular Volume 104H, Mean Corpuscular Hemoglobin 32.1H, Mean Corpuscular Hemoglobin Concent 30.9L, Red Cell Distribution Width 20.1H, Platelet Count 181, Mean Platelet Volume 9.6, Neutrophils (%) (Auto) , Lymphocytes (%) (Auto) , Monocytes (%) (Auto) , Eosinophils (%) (Auto) , Basophils (%) (Auto) , Differential Total Cells Counted 100, Neutrophils % ( Manual) 88H, Lymphocytes % (Manual) 2L, Monocytes % (Manual) 8, Eosinophils % ( Manual) 0, Basophils % (Manual) 0, Band Neutrophils 2, Platelet Estimate Adequate, Platelet Morphology Normal, Hypochromasia 2+, Anisocytosis 3+, Macrocytosis 2+, Target Cells Rare, Erythrocyte Sedimentation Rate 70H, Prothrombin Time 14.4H, Prothromb Time International Ratio 1.4H, Activated Partial Thromboplast Time 36H, Sodium Level 136, Potassium Level 4.2, Chloride Level 98, Carbon Dioxide Level 25, Anion Gap 13, Blood Urea Nitrogen 56H, Creatinine 3.2H, Estimat Glomerular Filtration Rate 19.5, Glucose Level 70L, Calcium Level 9.4, Phosphorus Level 4.2, Magnesium Level 2.1, Total Bilirubin 2.5H, Direct Bilirubin 2.0H, Aspartate Amino Transf (AST/SGOT) 45H, Alanine Aminotransferase (ALT/SGPT) 16, Alkaline Phosphatase 205H, C-Reactive Protein, Quantitative 28.8H, Total Protein 7.3, Albumin 1.8L, Globulin 5.5, Albumin/ Globulin Ratio 0.3L, Random Vancomycin Level 20.1 Height (Feet): 5 Height (Inches): 4.00 Weight (Pounds): 136 Objective VITAL SIGNS: Reviewed saturation 100%, blood pressure 102/63, FiO2 4 liters., venturi mask GENERAL: Alert and responsive No significant shortness of breath noted. HEAD AND NECK: Oral examination, no thrush. Neck is supple. No JVD. HEART: Regular. No gallop or murmur. ABDOMEN: Soft. Positive bowel sounds. Nontender. No organomegaly. LUNGS: Few bilateral rhonchi. No definite rales on exam. Decreased breath sounds, Intubated++ SKIN: No rash. Wounds were reviewed. Extremities: right Vadim Sandhu MD Dec 11, 2018 16:19
--- NOTE | 2018-12-11 18:50 | NUR ---
NURSE NOTES: Dextrose given for BS 58. Rechecked BS, 200.
--- NOTE | 2018-12-11 19:12 | NUR ---
RESPIRATORY NOTE: Received pt. on 840 vent. Vent settings are: A/C rate of 16, Vt 600, FI02 40%, PEEP +5. No respiratory distress noted, pt. SP02 @ 100%. Ambu bag @ BS. Vent plugged on red outlet. Will continue to monitor pt.
[2018-12-11] MEDS ORDERED: Tubing IV Secondary IV ONE (19:13)
[2018-12-11] MEDS ORDERED: D5W 275ml ONE (19:13)
[2018-12-11] MEDS ORDERED: NS 275ml ONE (19:13)
--- NOTE | 2018-12-11 19:30 | NUR ---
HAND-OFF: Report given to SONG Alan.
--- NOTE | 2018-12-11 20:00 | NUR ---
NURSE NOTES: Received patient from Walter ZULETA. Patient is awake and alert X 3-4 at times. Patient is mechanically ventilated with ETT 7.5, 23cm at the lip, AC 16, 600, 40% FiO2 and peep of 5. Patient is S/p R AKA today. So far patients doing well right now, other than slightly hypotensive 84/29. Patient also has L side BKA. Patient noted to have R UA AV shunt. Brut and thrill heard upon auscultation. L AC 20G patent and intact TKO. NGT with Nepro at 40ml/hr. P200 mattress.
[2018-12-11] MEDS: Betadine 4oz Bottle TOPIC SCH (20:25)
--- NOTE | 2018-12-11 20:30 | NUR ---
NURSE NOTES: Patient remain hypotensive, patient did receive albumin and fluid bolus eailer today. Called Dr. Michaels and informed him about patients BP. Received standby orders for Levophed incase patients blood pressure drops significantly overnight, also received orders for 2 units PRBC to be given stat.
--- NOTE | 2018-12-11 20:45 | Consultation ---
DATE OF CONSULTATION: 12/09/2018 VASCULAR SURGERY CONSULTATION CONSULTING PHYSICIAN: Rob Urban M.D. REFERRING PHYSICIANS: 1. Damian Michaels M.D. 2. Pam Andrade M.D. REASON FOR EVALUATION: Right foot gangrene. HISTORY OF PRESENT ILLNESS: This is a 68-year-old male who has multiple medical history. The patient has had previous left leg below-knee amputation, has had multiple angiography, left leg bypass, and revision of below-knee amputation done by several surgeons at [facility]. The patient now presented with right foot gangrene, altered mental status and sepsis. I was contacted by Dr. Michaels to evaluate the foot gangrene. The patient is confused and lethargic, was examined at bedside with the nurse. PAST MEDICAL HISTORY: As above, history of left leg below-knee amputation, multiple left leg procedures, revascularization of bypass done by several surgeons at [facility], end-stage renal failure on hemodialysis through a right upper arm AV shunt, COPD, hypertension, calcific PAD, and dementia. MEDICATIONS: See attached MAR. ALLERGIES: Penicillin and phenytoin. SOCIAL HISTORY: Unobtainable due to altered mental status. FAMILY HISTORY: Unobtainable. SYSTEM REVIEW: Unobtainable due to altered mental status. PHYSICAL EXAMINATION: VITAL SIGNS: The patient is afebrile 97, blood pressure 104/55, and respirations 20. Saturating 96%. GENERAL: The patient is awake, but lethargic. LUNGS: Has rhonchi bilateral. HEART: Regular rate. ABDOMEN: Soft and nontender. EXTREMITIES: He has palpable femoral pulses. Left leg below-knee amputation stump is clean, dry and intact. Right femoral pulse is palpable. Right popliteal is absent. He has knee contracture and arthritis with absent right foot pulses. He has extensive gangrenous necrosis of the right foot and ankle joint likely has clinical osteomyelitis. IMPRESSION: 1. Extensive right leg gangrenous necrosis with deep osteomyelitis, nonsalvageable. 2. Calcific arterial occlusive disease. 3. Failed left lower extremity revascularization with multiple procedures done by other surgeons and left leg amputation. 4. End-stage renal failure, on hemodialysis via right arm AV shunt. 5. Diabetes mellitus. 6. Nonambulatory. 7. Dementia. 8. Encephalopathy. 9. Lethargic. PLAN AND RECOMMENDATIONS: 1. Right leg above-knee amputation as soon as possible. The right leg is not salvageable. 2. Continue antibiotics per Infectious Disease service. 3. Optimize nutrition. The patient will benefit from feeding gastrostomy tube. 4. Continue dialysis through the right arm AV shunt. 5. DVT and decubitus precautions. 6. Poor overall prognosis. Rob Urban M.D. DR: JESUS JOB#: [id number] CC: Damian Michaels M.D. MTDD
[2018-12-11] MEDS ORDERED: Meropenem 500 MG in NS 55 ML IVPB SCH (21:00)
--- NOTE | 2018-12-11 21:15 | Operative Note - Dictated ---
DATE OF OPERATION: 12/11/2018 PREOPERATIVE DIAGNOSES: Ischemic gangrenous right lower extremity with severe soft tissue injury and necrosis/gangrene. POSTOPERATIVE DIAGNOSES: Ischemic gangrenous right lower extremity with severe soft tissue injury and necrosis/gangrene. OPERATION PERFORMED: Right [id number] amputation. ATTENDING SURGEON: Damian Michaels M.D. JAVA WEB APPLICATION DEVELOPER: None. ANESTHESIOLOGIST: William Ramirez M.D. ANESTHESIA: General INSERTER PROMOTIONAL ITEM. ESTIMATED BLOOD LOSS: 50 mL. IV FLUIDS: Please see anesthesia records. COMPLICATIONS: None. DRAINS: None. WOUND CLASSIFICATION: Class IV. ANTIBIOTICS: The patient is on scheduled IV antibiotics for acute active inflammatory process. COUNTS: Sponge and needle count correct x2. SPECIMENS: Right above knee amputation, sent for gross. COMPLICATIONS: None. INDICATIONS FOR PROCEDURE: This is a 68-year-old male, well known to me from prior admissions, who presents with acutely worsening right lower extremity. The patient has a history of left BKA and known peripheral vascular disease, who has acute necrosis with ischemia and gangrene to the right lower extremity and likely infectious soft tissue abscesses with noted leukocytosis and sepsis on admission. Initial workup by surgical team, vascular team, and Podiatry team identified severe peripheral vascular disease with high-grade occlusion of the popliteal minimal flow through high-grade stenosis at the popliteal with no flow in the extremely calcified vessels in the right leg. Areas of soft tissue with gangrene necrosis with likely underlying abscess infection/potential wet gangrene. The patient was initiated on intravenous antibiotic therapy and resuscitation and discussion was had with the patient regarding to potential care plans. Initially, patient was not interested in amputation rightfully so given he had already required a prior amputation on the left side. After this patient's condition worsened and he did not improve on antibiotics, he began understand the severity of his illness and the potentially life-threatening condition he is facing and his condition deteriorated, he was transferred to the intensive care unit and once respiratory compromise requiring intubation. As he began to note worsening condition, we had multiple discussions had with him and he expressed understanding of his condition and the life-threatening nature of his condition and when offered amputation again stated to proceed with surgery and consented to surgery. Given the nature of the procedure and the patient's current condition and worsening condition surgery was necessary emergently as patient's condition was deteriorating. OPERATIVE NOTE: The patient was taken to the operating room directly from the intensive care unit, placed on the operating room table in supine position with bilateral arms out. All bony prominences well padded. The patient is on scheduled IV antibiotics. Preoperative time-out was taken identifying the patient, procedure, operative staff, and surgical staff and any additional critical information prior to beginning the procedure, including site of surgery. The right lower extremity was prepped and draped in standard surgical fashion. The procedure was performed under general anesthesia. The patient was supine. The right lower extremity prepped and draped in standard surgical fashion. An occlusive anterior and posterior fishmouth skin flaps were lined out using a marking pen approximately 4 fingerbreadths proximal to the knee joint. The skin incision was then performed with a fresh number 10 scalpel, deepened through subcutaneous tissue until the muscular fascia was identified. The greater saphenous vein was identified and fairly small ligated with 2-0 silk tie and divided. The muscle groups of the anterior and medial thighs were divided with electrocautery at the same level of the skin incisions. The neurovascular bundle was identified on the medial aspect of the thigh. The popliteal artery and vein were identified and significant calcification of the popliteal artery was noted and it was ligated using a #0 silk tie and divided. The sciatic nerve was identified and pulled and ligated with #0 silk tie and divided. The posterior thigh muscle groups were then divided with electrocautery. Once the muscle groups were circumferentially divided, the periosteum was incised and elevated approximately 5 cm proximal off the femur. The femur was divided with an electrical saw. The proximal end of the transected femur was smoothened with a file. The amputation stump was irrigated with copious amounts of warm sterile saline. Hemostasis was identified and achieved with electrocautery and 2-0 silk ties as necessary. Remaining thigh muscles and fascia were closed in 2 layers beginning with the muscle groups and fascia using interrupted #0 Vicryl sutures. Once this was completed, the wound was irrigated again and the skin incision was approximated using surgical skin sindhu and followed by dressings including Xeroform, gauze, ABD, and Kerlix. The patient tolerated the procedure well, was taken directly in his care unit in stable condition. Damian Michaels M.D. DR: Sebastian JOB#: [id number] CC: NAVJOT
--- NOTE | 2018-12-11 22:00 | NUR ---
NURSE NOTES: Patient repositioned and provided oral care. BP becoming more stable. HR is SR on the monitor. NAD at this time, no urine output.
[2018-12-12] VITALS (25 sets, daily range): BP systolic 108–142; BP diastolic 31–71
--- NOTE | 2018-12-12 | NUR ---
NURSE NOTES: Patient repositioned, afebrile, VBS stable, feeds ongoing, oral care given.
--- NOTE | 2018-12-12 01:30 | NUR ---
NURSE NOTES: 2 units PRBC transfused. No reaction observed.
--- NOTE | 2018-12-12 02:00 | NUR ---
NURSE NOTES: VS remains stable, repositioned, No BM yet. Feeds ongoing.
--- NOTE | 2018-12-12 04:00 | NUR ---
NURSE NOTES: Repositioned, cleaned. NAD at this time. Vitals remains stable. Labs drawn and sent.
--- NOTE | 2018-12-12 06:00 | NUR ---
NURSE NOTES: Repositioned, patient remains stable at this time, oral done.
[2018-12-12 06:32] LABS: HEMATOCRIT 29.1 % (42.0-52.0); HEMOGLOBIN 9.5 G/DL (14.2-18.0); MEAN CORPUSCULAR VOLUME 101 FL (80-99); PLATELET COUNT 160 K/UL (150-450); RED BLOOD COUNT 2.89 M/UL (4.70-6.10); RED CELL DISTRIBUTION WIDTH 19.8 % (11.6-14.8)
[2018-12-12 06:34] LABS: WHITE BLOOD COUNT 25.5 K/UL (4.8-10.8)
[2018-12-12 06:46] LABS: ALANINE AMINOTRANSFERASE 10 U/L (12-78); ALBUMIN 1.8 G/DL (3.4-5.0); ALBUMIN/GLOBULIN RATIO 0.4 (1.0-2.7); ALKALINE PHOSPHATASE 178 U/L (46-116); ANION GAP 11 mmol/L (5-15); ASPARTATE AMINO TRANSFERASE 35 U/L (15-37); BILIRUBIN,TOTAL 3.3 MG/DL (0.2-1.0); BLOOD UREA NITROGEN 65 mg/dL (7-18); CARBON DIOXIDE 24 MMOL/L (21-32); CHLORIDE 99 MMOL/L (98-107); CREATININE 3.6 MG/DL (0.55-1.30); POTASSIUM 3.8 MMOL/L (3.5-5.1); SODIUM 134 MMOL/L (136-145)
[2018-12-12 06:55] LABS: BILIRUBIN,DIRECT 2.5 MG/DL (0.0-0.3)
--- NOTE | 2018-12-12 07:00 | NUR ---
RESPIRATORY NOTE:Received pt. on 840 vent. Vent settings are: A/C rate of 16, Vt 600, FI02 40%, PEEP +5. No respiratory distress noted. Ambu bag @ BS. Vent plugged on red outlet. Will continue to monitor pt.
--- NOTE | 2018-12-12 07:30 | NUR ---
NURSE NOTES: Report received from Waqas ZULETA. Pt is asleep in low thompson's position, opens eyes to name/voice/touch, mainly Czech speaking, able to comprehend basic Czech. ETT 7.[address], AC 16, TV600, Peep 5, FIO2 40%, 23cm at lipline, O2Sat 100%, no respiratory distress noted. NG in place in right nare, feeding Nepro 1.8 at 40/hour goal, tolerating well, no residual. Soft/distended abdomen. Molina catheter in place, with zero output. Right upper arm AV shunt for dialysis, and left FA #20G, saline lock, patent/intact. Skin has sacral dressing in place, dry/intact, will change/reassess during this shift as needed/ordered. Hx of status post left BKA, and recent right AKA, dressing in place on right stump, dressing dry/intact, on P200 mattress. Bed in lowest position, three side rails up, brakes engaged, alarm on, call light within easy reach. Sinus rhythm on cardiac nurse, vitals stable. Will continue to monitor pt, and follow plan of care per MD orders and protocol.
--- NOTE | 2018-12-12 08:43 | NUR ---
RADIOLOGY DEPT., CHEST X-RAY DONE.-P.DYE
[2018-12-12] MEDS: Docusate 100mg/10ml Liq NG SCH (09:00)
[2018-12-12] MEDS: Renvela 800mg Pkt NG SCH ×3 (09:03→17:35)
[2018-12-12] MEDS: Pyridoxine 50mg tab NG SCH (09:03)
--- NOTE | 2018-12-12 09:27 | Pulmonolgy Critical Care Note ---
Critical Care - Asmt/Plan Problems: (1) Acute respiratory failure (2) Sepsis (3) ESRF (end stage renal failure) (4) Diabetes mellitus (5) S/P BKA (below knee amputation) (6) Osteomyelitis Respiratory: monitor respiratory rate, adjust FIO2, CXR Cardiac: continue to monitor HR/BP Renal: F/U I&O, keep IV fluid Infectious Disease: check cultures, continue antibiotics Gastrointestinal: continue feedings/current rate Endocrine: monitor blood sugar Hematologic: monitor H/H, transfuse if hgb<8.5 Neurologic: PRN Ativan, PRN Morphine, keep patient comfortable Affect: PRN ativan Prophylaxis: Protonix, Heparin Disposition: keep in ICU Time Spent (Minutes): 40 Notes Reviewed: policy manager, renal Discussed with: nurses, consultants, correctional counselor/case managersearch engine marketing manager - Objective Last 24 Hour Vital Signs Date Time Temp Pulse Resp B/P (MAP) Pulse Ox O2 Delivery O2 Flow Rate FiO2 12/12/18 08:00 98.5 74 16 133/54 (80) 100 12/12/18 07:08 72 16 40 12/12/18 07:00 73 16 132/61 (84) 100 12/12/18 06:00 75 16 139/50 (79) 100 12/12/18 05:28 74 17 40 12/12/18 05:00 73 16 128/58 (81) 100 12/12/18 04:00 Mechanical Ventilator 12/12/18 04:00 40 12/12/18 04:00 96.3 73 18 137/68 (91) 100 12/12/18 04:00 72 12/12/18 03:56 81 15 40 12/12/18 03:00 71 11 121/60 (80) 100 12/12/18 02:14 71 16 135/71 (92) 100 12/12/18 02:00 70 6 139/69 (92) 100 12/12/18 01:15 74 16 40 12/12/18 01:00 71 17 134/69 (90) 100 12/12/18 00:00 97.7 70 16 130/68 (88) 100 12/12/18 00:00 40 12/12/18 00:00 Mechanical Ventilator 12/11/18 23:00 71 18 40 12/11/18 23:00 74 16 109/39 (62) 100 12/11/18 22:00 73 16 111/45 (67) 100 12/11/18 21:00 68 17 92/30 (50) 100 12/11/18 20:57 68 17 40 12/11/18 20:24 102/35 12/11/18 20:00 40 12/11/18 20:00 Mechanical Ventilator 12/11/18 20:00 98.4 67 16 103/31 (55) 100 12/11/18 20:00 73 12/11/18 19:10 69 16 40 12/11/18 19:00 69 16 102/35 (57) 100 12/11/18 18:00 70 16 95/29 (51) 100 12/11/18 17:00 70 16 97/28 (51) 96 12/11/18 16:50 70 16 40 12/11/18 16:30 71 16 100/31 (54) 95 12/11/18 16:00 40 12/11/18 16:00 93 12/11/18 16:00 Mechanical Ventilator 12/11/18 16:00 98.3 72 16 89/24 (45) 100 12/11/18 15:30 74 16 102/33 (56) 98 12/11/18 15:01 75 16 40 12/11/18 15:00 75 15 114/37 (62) 99 12/11/18 14:26 72 15 100 12/11/18 12:45 82 18 40 12/11/18 12:00 40 12/11/18 12:00 80 12/11/18 12:00 Mechanical Ventilator 12/11/18 12:00 98.5 80 16 103/26 (51) 100 12/11/18 11:00 80 19 102/53 (69) 100 12/11/18 10:57 80 17 40 12/11/18 10:00 79 17 106/23 (50) 98 Status: awake Condition: critical, improving HEENT: atraumatic Neck: full ROM Lungs: clear Heart: HR/BP stable Abdomen: soft, non-tender Extremities: no C/C/E, edema Decubiti: location Micro: Microbiology Date/Time Source Procedure Growth Status 12/09/18 12:30 Stool Clostridium difficile Toxin Assay - Final Complete Accucheck: 94 Critical Care - Subjective ROS Limited/Unobtainable: Yes Interval Events: had right AKA yesterday. FI02: 40 Vent Support Breath Rate: 16 Vent Support Mode: AC Vent Tidal Volume: 600 Sputum Amount: Small PEEP: 5.0 PIP: 34 Tube Feeding Amount: 40 I&O: Intake and Output 12/11/18 12/12/18 18:59 06:59 Intake Total 305.000 ml 335 ml Output Total 5 ml 0 ml Balance 300.000 ml 335 ml Free Water 30 ml IV Total 275.000 ml 55 ml Tube Feeding 280 ml Output Urine Total 5 ml 0 ml # Bowel Movements 2 2 CXR: no change, ET tube in good position ET-Tube: 7.5 ET Position: 22 Labs: Laboratory Tests Test 12/12/18 05:30 White Blood Count 25.5 K/UL (4.8-10.8) *H Red Blood Count 2.89 M/UL (4.70-6.10) L Hemoglobin 9.5 G/DL (14.2-18.0) L Hematocrit 29.1 % (42.0-52.0) L Mean Corpuscular Volume 101 FL (80-99) H Mean Corpuscular Hemoglobin 32.8 PG (27.0-31.0) H Mean Corpuscular Hemoglobin Concent 32.7 G/DL (32.0-36.0) Red Cell Distribution Width 19.8 % (11.6-14.8) H Platelet Count 160 K/UL (150-450) Mean Platelet Volume 8.4 FL (6.5-10.1) Neutrophils (%) (Auto) % (45.0-75.0) Lymphocytes (%) (Auto) % (20.0-45.0) Monocytes (%) (Auto) % (1.0-10.0) Eosinophils (%) (Auto) % (0.0-3.0) Basophils (%) (Auto) % (0.0-2.0) Differential Total Cells Counted 100 Neutrophils % (Manual) 92 % (45-75) H Lymphocytes % (Manual) 2 % (20-45) L Monocytes % (Manual) 6 % (1-10) Eosinophils % (Manual) 0 % (0-3) Basophils % (Manual) 0 % (0-2) Band Neutrophils 0 % (0-8) Platelet Estimate Adequate Platelet Morphology Normal Anisocytosis 1+ Macrocytosis 1+ Target Cells 1+ Sodium Level 134 MMOL/L (136-145) L Potassium Level 3.8 MMOL/L (3.5-5.1) Chloride Level 99 MMOL/L (98-107) Carbon Dioxide Level 24 MMOL/L (21-32) Anion Gap 11 mmol/L (5-15) Blood Urea Nitrogen 65 mg/dL (7-18) H Creatinine 3.6 MG/DL (0.55-1.30) H Estimat Glomerular Filtration Rate 17.0 mL/min (>60) Glucose Level 102 MG/DL (74-106) Uric Acid 5.6 MG/DL (2.6-7.2) Calcium Level 9.0 MG/DL (8.5-10.1) Phosphorus Level 3.0 MG/DL (2.5-4.9) Magnesium Level 1.9 MG/DL (1.8-2.4) Total Bilirubin 3.3 MG/DL (0.2-1.0) H Direct Bilirubin 2.5 MG/DL (0.0-0.3) H Aspartate Amino Transf (AST/SGOT) 35 U/L (15-37) Alanine Aminotransferase (ALT/SGPT) 10 U/L (12-78) L Alkaline Phosphatase 178 U/L (46-116) H Troponin I 0.499 ng/mL (0.000-0.056) Pro-B-Type Natriuretic Peptide > 45971 pg/mL (0-125) H Total Protein 6.9 G/DL (6.4-8.2) Albumin 1.8 G/DL (3.4-5.0) L Globulin 5.1 g/dL Albumin/Globulin Ratio 0.4 (1.0-2.7) L Tamia Lerma MD Dec 12, 2018 09:27
--- NOTE | 2018-12-12 09:33 | NUR ---
RESPIRATORY NOTE:Pt refused abg. Rn was in room when pt refused.
--- NOTE | 2018-12-12 10:05 | Diagnostic Imaging Report ---
Indication: Dyspnea Technique: One view of the chest Comparison: 12/11/2018 Findings: There is increased opacity in the right perihilar region and right lung base. There are small bilateral pleural effusions, may be slightly increased from the prior exam. Stable satisfactory positions of endotracheal and nasogastric tubes. The heart remains enlarged. Right and innominate venous stent again demonstrated Impression: Suggestion of increasing bilateral pleural fluid and right mid and lower lung interstitial airspace infiltrates versus edema, over one day Stable tube and line positions
--- NOTE | 2018-12-12 10:48 | NUR ---
NURSE NOTES: Dr Price ordered to do bladder scan. Bladder scan done at bedside, showing 150cc urine in bladder. Negro catheter irrigated x2. Deflated balloon, advanced catheter, and reinflated balloon. Urine coming out through catheter. Removed negro and reinserted a new negro catheter. Informed Dr Price of bladder scan result. Order to discontinue negro received. Will carry out the order.
--- NOTE | 2018-12-12 11:10 | NUR ---
RESPIRATORY NOTE:Placed pt on cpap with psv 0 per weaning protocol. pt did not meet the criteria to be wean. RN notified of results. Placed pt back ac and pt is resting comfortably and no s/s of distress noted.
--- NOTE | 2018-12-12 11:38 | NUR ---
NURSE NOTES: Pt failed weaning as per RT. Pt appears to be weak and lethargic. Will attempt weaning tomorrow. Called Dr Miller regarding Elevated troponin level and right stump pain. Order received, noted, and carried out.
--- NOTE | 2018-12-12 11:55 | General Progress Note ---
Assessment/Plan Problem List: (1) S/P BKA (below knee amputation) ICD Codes: Z89.519 - Acquired absence of unspecified leg below knee SNOMED: 88014020, 413059836 (2) Hx of BKA ICD Codes: Z89.519 - Acquired absence of unspecified leg below knee SNOMED: 680118651, 180482379 (3) Severe sepsis ICD Codes: A41.9 - Sepsis, unspecified organism; R65.20 - Severe sepsis without septic shock SNOMED: 65798107 (4) Diabetes mellitus ICD Codes: E11.9 - Type 2 diabetes mellitus without complications SNOMED: 46718396 (5) ESRF (end stage renal failure) ICD Codes: N18.6 - End stage renal disease SNOMED: 28019010 (6) Leukocytosis ICD Codes: D72.829 - Elevated white blood cell count, unspecified SNOMED: 210415061, 704412460 (7) CHF (congestive heart failure) ICD Codes: I50.9 - Heart failure, unspecified SNOMED: 06139064 (8) Anemia ICD Codes: D64.9 - Anemia, unspecified SNOMED: 088832272 Assessment/Plan Elevated residuals Dysphasia G-tube Macrocytic anemia Diarrhea C. difficile, negative Occult blood stool positive Elevated LFTs KUB negative G-tube feedings, Reglan 5 mg ATC Monitor H&H, PRN transfusions PPI Consider Imodium if patient has persistent diarrhea Follow-up cardiology recommendations for elevated troponin levels Trend LFTs, s/p amputation Subjective ROS Limited/Unobtainable: No Allergies: Coded Allergies: PENICILLINS (Unverified Allergy, Mild, 12/05/18) PHENYTOIN (Verified Allergy, Unknown, 10/17/18) Uncoded Allergies: PENICILLIN (Allergy, Mild, 11/17/18) Subjective coded yesterday Objective Last 24 Hour Vital Signs Date Time Temp Pulse Resp B/P (MAP) Pulse Ox O2 Delivery O2 Flow Rate FiO2 12/12/18 11:20 Mechanical Ventilator 12/12/18 11:10 100 12/12/18 11:10 78 12 12/12/18 11:05 84 18 40 12/12/18 09:00 74 16 142/68 (92) 100 12/12/18 09:00 79 16 40 12/12/18 08:00 40 12/12/18 08:00 Mechanical Ventilator 12/12/18 08:00 98.5 74 16 133/54 (80) 100 12/12/18 08:00 73 12/12/18 07:08 72 16 40 12/12/18 07:00 73 16 132/61 (84) 100 12/12/18 06:00 75 16 139/50 (79) 100 12/12/18 05:28 74 17 40 12/12/18 05:00 73 16 128/58 (81) 100 12/12/18 04:00 Mechanical Ventilator 12/12/18 04:00 40 12/12/18 04:00 96.3 73 18 137/68 (91) 100 12/12/18 04:00 72 12/12/18 03:56 81 15 40 12/12/18 03:00 71 11 121/60 (80) 100 12/12/18 02:14 71 16 135/71 (92) 100 12/12/18 02:00 70 6 139/69 (92) 100 12/12/18 01:15 74 16 40 12/12/18 01:00 71 17 134/69 (90) 100 12/12/18 00:00 97.7 70 16 130/68 (88) 100 12/12/18 00:00 40 12/12/18 00:00 Mechanical Ventilator 12/11/18 23:00 71 18 40 12/11/18 23:00 74 16 109/39 (62) 100 12/11/18 22:00 73 16 111/45 (67) 100 12/11/18 21:00 68 17 92/30 (50) 100 12/11/18 20:57 68 17 40 12/11/18 20:24 102/35 12/11/18 20:00 40 12/11/18 20:00 Mechanical Ventilator 12/11/18 20:00 98.4 67 16 103/31 (55) 100 12/11/18 20:00 73 12/11/18 19:10 69 16 40 12/11/18 19:00 69 16 102/35 (57) 100 12/11/18 18:00 70 16 95/29 (51) 100 12/11/18 17:00 70 16 97/28 (51) 96 12/11/18 16:50 70 16 40 12/11/18 16:30 71 16 100/31 (54) 95 12/11/18 16:00 40 12/11/18 16:00 93 12/11/18 16:00 Mechanical Ventilator 12/11/18 16:00 98.3 72 16 89/24 (45) 100 12/11/18 15:30 74 16 102/33 (56) 98 12/11/18 15:01 75 16 40 12/11/18 15:00 75 15 114/37 (62) 99 12/11/18 14:26 72 15 100 12/11/18 12:45 82 18 40 12/11/18 12:00 40 12/11/18 12:00 80 12/11/18 12:00 Mechanical Ventilator 12/11/18 12:00 98.5 80 16 103/26 (51) 100 Intake and Output 12/11/18 12/12/18 18:59 06:59 Intake Total 305.000 ml 335 ml Output Total 5 ml 0 ml Balance 300.000 ml 335 ml Free Water 30 ml IV Total 275.000 ml 55 ml Tube Feeding 280 ml Output Urine Total 5 ml 0 ml # Bowel Movements 2 2 Laboratory Tests 12/12/18 05:30: White Blood Count 25.5*H, Red Blood Count 2.89L, Hemoglobin 9.5L, Hematocrit 29.1L, Mean Corpuscular Volume 101H, Mean Corpuscular Hemoglobin 32.8H, Mean Corpuscular Hemoglobin Concent 32.7, Red Cell Distribution Width 19.8H, Platelet Count 160, Mean Platelet Volume 8.4, Neutrophils (%) (Auto) , Lymphocytes (%) (Auto) , Monocytes (%) (Auto) , Eosinophils (%) (Auto) , Basophils (%) (Auto) , Differential Total Cells Counted 100, Neutrophils % ( Manual) 92H, Lymphocytes % (Manual) 2L, Monocytes % (Manual) 6, Eosinophils % ( Manual) 0, Basophils % (Manual) 0, Band Neutrophils 0, Platelet Estimate Adequate, Platelet Morphology Normal, Anisocytosis 1+, Macrocytosis 1+, Target Cells 1+, Sodium Level 134L, Potassium Level 3.8, Chloride Level 99, Carbon Dioxide Level 24, Anion Gap 11, Blood Urea Nitrogen 65H, Creatinine 3.6H, Estimat Glomerular Filtration Rate 17.0, Glucose Level 102, Uric Acid 5.6, Calcium Level 9.0, Phosphorus Level 3.0, Magnesium Level 1.9, Total Bilirubin 3.3H, Direct Bilirubin 2.5H, Aspartate Amino Transf (AST/SGOT) 35, Alanine Aminotransferase (ALT/SGPT) 10L, Alkaline Phosphatase 178H, Troponin I 0.499H, Pro-B-Type Natriuretic Peptide > 37161I, Total Protein 6.9, Albumin 1.8L, Globulin 5.1, Albumin/Globulin Ratio 0.4L Height (Feet): 5 Height (Inches): 4.00 Weight (Pounds): 125 General Appearance: lethargic EENT: normal ENT inspection Neck: supple Cardiovascular: normal rate Respiratory/Chest: decreased breath sounds Abdomen: normal bowel sounds, non tender, soft Antione Salomon MD Dec 12, 2018 11:55
--- NOTE | 2018-12-12 12:00 | NUR ---
NURSE NOTES: Pt's POA family mechanical service representative at bedside requesting a note from Assistant Front Desk Manager to be forwarded to pt's sister in [place], to assist with Visa to visit pt in [facility]. therapeutic program worker Emily was able to email requested information to pt's sister.
[2018-12-12] MEDS: Hydromorphone 0.5mg/0.5ml inj IVP PRN ×2 (12:13→17:35)
--- NOTE | 2018-12-12 12:14 | Nephrology Progress Note ---
Assessment/Plan Problem List: (1) ESRF (end stage renal failure) (2) Leukocytosis Assessment: sepsis (3) CHF (congestive heart failure) (4) Acute respiratory failure (5) Hyperbilirubinemia (6) Elevated troponin I level Assessment admitted with sepsis and shortness of breath (1) ESRD (end stage renal disease) right arm fistula (2) Possible Fluid overload, unspecified (3) h/o Bradycardia (4) Anemia (5) h/o Pleural effusion (6) Elevated troponin (7) Allergy Dialntin & PCN (8) Elevated Bili Plan intubated on Vent HD last 12/10 done, next ? Molina no urine IV bolus adjust BP meds 2D Echo 55% EjFx stop beta blockers for low HR hydralazin and procardia as needed reviewe CXR : Pneumonia per consultants Subjective ROS Limited/Unobtainable: Yes Objective Objective Last 24 Hour Vital Signs Date Time Temp Pulse Resp B/P (MAP) Pulse Ox O2 Delivery O2 Flow Rate FiO2 12/12/18 11:20 Mechanical Ventilator 12/12/18 11:10 100 12/12/18 11:10 78 12 12/12/18 11:05 84 18 40 12/12/18 09:00 74 16 142/68 (92) 100 12/12/18 09:00 79 16 40 12/12/18 08:00 40 12/12/18 08:00 Mechanical Ventilator 12/12/18 08:00 98.5 74 16 133/54 (80) 100 12/12/18 08:00 73 12/12/18 07:08 72 16 40 12/12/18 07:00 73 16 132/61 (84) 100 12/12/18 06:00 75 16 139/50 (79) 100 12/12/18 05:28 74 17 40 12/12/18 05:00 73 16 128/58 (81) 100 12/12/18 04:00 Mechanical Ventilator 12/12/18 04:00 40 12/12/18 04:00 96.3 73 18 137/68 (91) 100 12/12/18 04:00 72 12/12/18 03:56 81 15 40 12/12/18 03:00 71 11 121/60 (80) 100 12/12/18 02:14 71 16 135/71 (92) 100 12/12/18 02:00 70 6 139/69 (92) 100 12/12/18 01:15 74 16 40 12/12/18 01:00 71 17 134/69 (90) 100 12/12/18 00:00 97.7 70 16 130/68 (88) 100 12/12/18 00:00 40 12/12/18 00:00 Mechanical Ventilator 12/11/18 23:00 71 18 40 12/11/18 23:00 74 16 109/39 (62) 100 12/11/18 22:00 73 16 111/45 (67) 100 12/11/18 21:00 68 17 92/30 (50) 100 12/11/18 20:57 68 17 40 12/11/18 20:24 102/35 12/11/18 20:00 40 12/11/18 20:00 Mechanical Ventilator 12/11/18 20:00 98.4 67 16 103/31 (55) 100 12/11/18 20:00 73 12/11/18 19:10 69 16 40 12/11/18 19:00 69 16 102/35 (57) 100 12/11/18 18:00 70 16 95/29 (51) 100 12/11/18 17:00 70 16 97/28 (51) 96 12/11/18 16:50 70 16 40 12/11/18 16:30 71 16 100/31 (54) 95 12/11/18 16:00 40 12/11/18 16:00 93 12/11/18 16:00 Mechanical Ventilator 12/11/18 16:00 98.3 72 16 89/24 (45) 100 12/11/18 15:30 74 16 102/33 (56) 98 12/11/18 15:01 75 16 40 12/11/18 15:00 75 15 114/37 (62) 99 12/11/18 14:26 72 15 100 12/11/18 12:45 82 18 40 Intake and Output 12/11/18 12/12/18 18:59 06:59 Intake Total 305.000 ml 335 ml Output Total 5 ml 0 ml Balance 300.000 ml 335 ml Free Water 30 ml IV Total 275.000 ml 55 ml Tube Feeding 280 ml Output Urine Total 5 ml 0 ml # Bowel Movements 2 2 Laboratory Tests 12/12/18 05:30: White Blood Count 25.5*H, Red Blood Count 2.89L, Hemoglobin 9.5L, Hematocrit 29.1L, Mean Corpuscular Volume 101H, Mean Corpuscular Hemoglobin 32.8H, Mean Corpuscular Hemoglobin Concent 32.7, Red Cell Distribution Width 19.8H, Platelet Count 160, Mean Platelet Volume 8.4, Neutrophils (%) (Auto) , Lymphocytes (%) (Auto) , Monocytes (%) (Auto) , Eosinophils (%) (Auto) , Basophils (%) (Auto) , Differential Total Cells Counted 100, Neutrophils % ( Manual) 92H, Lymphocytes % (Manual) 2L, Monocytes % (Manual) 6, Eosinophils % ( Manual) 0, Basophils % (Manual) 0, Band Neutrophils 0, Platelet Estimate Adequate, Platelet Morphology Normal, Anisocytosis 1+, Macrocytosis 1+, Target Cells 1+, Sodium Level 134L, Potassium Level 3.8, Chloride Level 99, Carbon Dioxide Level 24, Anion Gap 11, Blood Urea Nitrogen 65H, Creatinine 3.6H, Estimat Glomerular Filtration Rate 17.0, Glucose Level 102, Uric Acid 5.6, Calcium Level 9.0, Phosphorus Level 3.0, Magnesium Level 1.9, Total Bilirubin 3.3H, Direct Bilirubin 2.5H, Aspartate Amino Transf (AST/SGOT) 35, Alanine Aminotransferase (ALT/SGPT) 10L, Alkaline Phosphatase 178H, Troponin I 0.499H, Pro-B-Type Natriuretic Peptide > 90303L, Total Protein 6.9, Albumin 1.8L, Globulin 5.1, Albumin/Globulin Ratio 0.4L Height (Feet): 5 Height (Inches): 4.00 Weight (Pounds): 125 EENT: other - vented Cardiovascular: normal rate Respiratory/Chest: decreased breath sounds Abdomen: distended Objective no change Alessandro Price MD Dec 12, 2018 12:14
--- NOTE | 2018-12-12 12:23 | NUR ---
NURSE NOTES: ECG done at bedside, displays NSR with 1st degree AV block, same as baseline ECG reading. IV Dilaudid administered per PRN dose, pt displays facial grimacing. Will continue to monitor.
--- NOTE | 2018-12-12 12:31 | General Progress Note ---
Assessment/Plan Assessment/Plan ASSESSMENT/RECS: # Leukocytosis/Elevated white blood cell count, unspecified likely related to underlying stress reaction, smoking, or underlying infection (especially if bandemia is noted) --> have reviewed peripheral smear and bandemia/neutrophilia noted --> esr and crp elevated on prior labs --> continue on meropenem and vancomycin started by ID team --> monitor for resolution 28k-->21k-->24-->21k-->24-->25 --> flow cytometry pending # Anemia of chronic disease due to underlying chronic medical issues, multifactorial --> Anemia workup has been reviewed, Ferritin 1678 --> No evidence of hemolysis is noted, peripheral smear has been reviewed. --> Hgb goal >7. Transfuse prn. --> Epogen or iron at this time is not particularly indicated --> Medications have been reviewed # Coagulopathy with elevated inr --> consider repeat in one week --> obtain a mixing study # Sepsis, elevated white count --> on meropenem and vancomycin, as per id --> appreciate ID recs # End-stage renal disease on hemodialysis --> appreciate nephro recs --> hd as needed # R foot infection vs UTI vs PNA --> appreciate ID recs --> right AKA 12/11/18 # Acute hypercapnic respiratory failure , Cont BiPAP, --> appreciate pulm recs # Intubated The timing of this note does not necessarily reflect the time of the patient was seen. Greatly appreciate consultation! Subjective Allergies: Coded Allergies: PENICILLINS (Unverified Allergy, Mild, 12/05/18) PHENYTOIN (Verified Allergy, Unknown, 10/17/18) Uncoded Allergies: PENICILLIN (Allergy, Mild, 11/17/18) Subjective 12/07: seen by bedside, leukocytosis trending up at 24, on abx, hgb 7.6, no events 12/09: Pt is resting in bed, wbc remains elevated, 12/10: on abx, wbc is better, anemia panel reviewed, getting hd 12/11: Pt is s/p code blue, pt intubated and transferred to ICU, right AKA schedule today. wbc elevated at 24 12/12: seen by bedside, appears weak and lethargic , failed weaning, wbc elevated. Objective Last 24 Hour Vital Signs Date Time Temp Pulse Resp B/P (MAP) Pulse Ox O2 Delivery O2 Flow Rate FiO2 12/12/18 12:00 98.2 76 16 125/54 (77) 100 12/12/18 12:00 40 12/12/18 11:20 Mechanical Ventilator 12/12/18 11:10 100 12/12/18 11:10 78 12 12/12/18 11:05 84 18 40 12/12/18 11:00 74 16 129/51 (77) 100 12/12/18 10:00 75 18 117/47 (70) 100 12/12/18 09:00 74 16 142/68 (92) 100 12/12/18 09:00 79 16 40 12/12/18 08:00 40 12/12/18 08:00 Mechanical Ventilator 12/12/18 08:00 98.5 74 16 133/54 (80) 100 12/12/18 08:00 73 12/12/18 07:08 72 16 40 12/12/18 07:00 73 16 132/61 (84) 100 12/12/18 06:00 75 16 139/50 (79) 100 12/12/18 05:28 74 17 40 12/12/18 05:00 73 16 128/58 (81) 100 12/12/18 04:00 Mechanical Ventilator 12/12/18 04:00 40 12/12/18 04:00 96.3 73 18 137/68 (91) 100 12/12/18 04:00 72 12/12/18 03:56 81 15 40 12/12/18 03:00 71 11 121/60 (80) 100 12/12/18 02:14 71 16 135/71 (92) 100 12/12/18 02:00 70 6 139/69 (92) 100 12/12/18 01:15 74 16 40 12/12/18 01:00 71 17 134/69 (90) 100 12/12/18 00:00 97.7 70 16 130/68 (88) 100 12/12/18 00:00 40 12/12/18 00:00 Mechanical Ventilator 12/11/18 23:00 71 18 40 12/11/18 23:00 74 16 109/39 (62) 100 12/11/18 22:00 73 16 111/45 (67) 100 12/11/18 21:00 68 17 92/30 (50) 100 12/11/18 20:57 68 17 40 12/11/18 20:24 102/35 12/11/18 20:00 40 12/11/18 20:00 Mechanical Ventilator 12/11/18 20:00 98.4 67 16 103/31 (55) 100 12/11/18 20:00 73 12/11/18 19:10 69 16 40 12/11/18 19:00 69 16 102/35 (57) 100 12/11/18 18:00 70 16 95/29 (51) 100 12/11/18 17:00 70 16 97/28 (51) 96 12/11/18 16:50 70 16 40 12/11/18 16:30 71 16 100/31 (54) 95 12/11/18 16:00 40 12/11/18 16:00 93 12/11/18 16:00 Mechanical Ventilator 12/11/18 16:00 98.3 72 16 89/24 (45) 100 12/11/18 15:30 74 16 102/33 (56) 98 12/11/18 15:01 75 16 40 12/11/18 15:00 75 15 114/37 (62) 99 12/11/18 14:26 72 15 100 12/11/18 12:45 82 18 40 Intake and Output 12/11/18 12/12/18 18:59 06:59 Intake Total 305.000 ml 335 ml Output Total 5 ml 0 ml Balance 300.000 ml 335 ml Free Water 30 ml IV Total 275.000 ml 55 ml Tube Feeding 280 ml Output Urine Total 5 ml 0 ml # Bowel Movements 2 2 Laboratory Tests 12/12/18 05:30: White Blood Count 25.5*H, Red Blood Count 2.89L, Hemoglobin 9.5L, Hematocrit 29.1L, Mean Corpuscular Volume 101H, Mean Corpuscular Hemoglobin 32.8H, Mean Corpuscular Hemoglobin Concent 32.7, Red Cell Distribution Width 19.8H, Platelet Count 160, Mean Platelet Volume 8.4, Neutrophils (%) (Auto) , Lymphocytes (%) (Auto) , Monocytes (%) (Auto) , Eosinophils (%) (Auto) , Basophils (%) (Auto) , Differential Total Cells Counted 100, Neutrophils % ( Manual) 92H, Lymphocytes % (Manual) 2L, Monocytes % (Manual) 6, Eosinophils % ( Manual) 0, Basophils % (Manual) 0, Band Neutrophils 0, Platelet Estimate Adequate, Platelet Morphology Normal, Anisocytosis 1+, Macrocytosis 1+, Target Cells 1+, Sodium Level 134L, Potassium Level 3.8, Chloride Level 99, Carbon Dioxide Level 24, Anion Gap 11, Blood Urea Nitrogen 65H, Creatinine 3.6H, Estimat Glomerular Filtration Rate 17.0, Glucose Level 102, Uric Acid 5.6, Calcium Level 9.0, Phosphorus Level 3.0, Magnesium Level 1.9, Total Bilirubin 3.3H, Direct Bilirubin 2.5H, Aspartate Amino Transf (AST/SGOT) 35, Alanine Aminotransferase (ALT/SGPT) 10L, Alkaline Phosphatase 178H, Troponin I 0.499H, Pro-B-Type Natriuretic Peptide > 11637L, Total Protein 6.9, Albumin 1.8L, Globulin 5.1, Albumin/Globulin Ratio 0.4L Height (Feet): 5 Height (Inches): 4.00 Weight (Pounds): 125 Objective VITAL SIGNS: Reviewed saturation 100%, blood pressure 102/63, FiO2 4 liters., venturi mask GENERAL: Alert and responsive No significant shortness of breath noted. HEAD AND NECK: Oral examination, no thrush. Neck is supple. No JVD. HEART: Regular. No gallop or murmur. ABDOMEN: Soft. Positive bowel sounds. Nontender. No organomegaly. LUNGS: Few bilateral rhonchi. No definite rales on exam. Decreased breath sounds, Intubated++ SKIN: No rash. Wounds were reviewed. Extremities: right Vadim Sandhu MD Dec 12, 2018 12:31
--- NOTE | 2018-12-12 13:30 | NUR ---
NURSE NOTES: Dr Miller covering for Dr Andrade saw pt at bedside. notified of elevated troponin, ECG result and hypotension. Per Dr Miller, cardiac consult requested with Dr Brantley. No new orders given. Pt is currently asymptomatic, resting in bed in stable condition. 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 Mouth care provided, pt repositioned. Will continue to monitor. Addendum: 12/12/18 at 1453 by DERICK CRABTREE RN Dr Miller informed regarding Negro Cath. removal per Dr Weeks's order post bladder scan and zero urine output after repositioning of negro.
--- NOTE | 2018-12-12 13:41 | General Progress Note ---
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 -Cont A/C rate of 16, Vt 600, FI02 40%, PEEP +5 -Cont vancomycin and meropenen -ABG PRN, titrate vent PRN -Pt with good mental status, CPAP as tolerated -Pulmonary consult noted, will d/w Pulm re oxygen requirements -ID consult noted, cont broad spectrum IV abx -Surgery consult appreciated, rec amputation, -MRI right foot and ankle: +osteomyelitis and fluid collection likely abscess -Vascular and podiatry consult appreciated -daily care per surgery -Cont pain management - monitor BP -s/p R AKA #Troponemia likely 2/2 type 2 NSTEMI -Trend trop and EKG -cardiology consulted #Leukocytosis likly 2/2 infection -Flow cytometry pending -Hematology consult appreciated #Dysphagia -NG tube placed -tube feeds restarted at 10cc/hr given high residuals advance as tolerated to goal of 40cc/hr -GI consult appreciated -Tolerating feeds, rate at goal #DM now hypoglycemic -hypoglycemia likley 2/2 sepsis -hold antiDM medications -FSG Q6hrs -Currently on min tube feeds -Monitor respiratory status #ESRD on HD (MWF) via R arm fistula #HyperKalemia #HypoNA -no signs of fluid overload -nephrology consult appreciated -CTM electrolytes -HD per renal -Last HD 12/10 Code: Full I spent 75 minutes on this patient's case, and 36 mins was dedicated to critical care Critical Care Services performed include: Telemetry Review Hemodynamic measurement interpretation Laboratory data review and interpretation Radiology image review and interpretation Ventilator setting review, management, and adjustment Interpretation of ABG's Discussion of patient's care with ICU team, ICU Nursing staff and/or consulting services Time of note may not represent time of encounter Subjective ROS Limited/Unobtainable: Yes Allergies: Coded Allergies: PENICILLINS (Unverified Allergy, Mild, 12/05/18) PHENYTOIN (Verified Allergy, Unknown, 10/17/18) Uncoded Allergies: PENICILLIN (Allergy, Mild, 11/17/18) Subjective S/P R AKA, Hypotensive overnight likely 2/2 pain medications, improved this AM. Opens eyes to verbal commands, follows commands, negro not draining, flushed and removed by nursing staff. No signs of distress. Objective Last 24 Hour Vital Signs Date Time Temp Pulse Resp B/P (MAP) Pulse Ox O2 Delivery O2 Flow Rate FiO2 12/12/18 13:00 73 16 114/35 (61) 100 12/12/18 12:50 73 18 40 12/12/18 12:43 98.5 12/12/18 12:00 98.2 76 16 125/54 (77) 100 12/12/18 12:00 40 12/12/18 11:20 Mechanical Ventilator 12/12/18 11:10 100 12/12/18 11:10 78 12 12/12/18 11:05 84 18 40 12/12/18 11:00 74 16 129/51 (77) 100 12/12/18 10:00 75 18 117/47 (70) 100 12/12/18 09:00 74 16 142/68 (92) 100 12/12/18 09:00 79 16 40 12/12/18 08:00 40 12/12/18 08:00 Mechanical Ventilator 12/12/18 08:00 98.5 74 16 133/54 (80) 100 12/12/18 08:00 73 12/12/18 07:08 72 16 40 12/12/18 07:00 73 16 132/61 (84) 100 12/12/18 06:00 75 16 139/50 (79) 100 12/12/18 05:28 74 17 40 12/12/18 05:00 73 16 128/58 (81) 100 12/12/18 04:00 Mechanical Ventilator 12/12/18 04:00 40 12/12/18 04:00 96.3 73 18 137/68 (91) 100 12/12/18 04:00 72 12/12/18 03:56 81 15 40 12/12/18 03:00 71 11 121/60 (80) 100 12/12/18 02:14 71 16 135/71 (92) 100 12/12/18 02:00 70 6 139/69 (92) 100 12/12/18 01:15 74 16 40 12/12/18 01:00 71 17 134/69 (90) 100 12/12/18 00:00 97.7 70 16 130/68 (88) 100 12/12/18 00:00 40 12/12/18 00:00 Mechanical Ventilator 12/11/18 23:00 71 18 40 12/11/18 23:00 74 16 109/39 (62) 100 12/11/18 22:00 73 16 111/45 (67) 100 12/11/18 21:00 68 17 92/30 (50) 100 12/11/18 20:57 68 17 40 12/11/18 20:24 102/35 12/11/18 20:00 40 12/11/18 20:00 Mechanical Ventilator 12/11/18 20:00 98.4 67 16 103/31 (55) 100 12/11/18 20:00 73 12/11/18 19:10 69 16 40 12/11/18 19:00 69 16 102/35 (57) 100 12/11/18 18:00 70 16 95/29 (51) 100 12/11/18 17:00 70 16 97/28 (51) 96 12/11/18 16:50 70 16 40 12/11/18 16:30 71 16 100/31 (54) 95 12/11/18 16:00 40 12/11/18 16:00 93 12/11/18 16:00 Mechanical Ventilator 12/11/18 16:00 98.3 72 16 89/24 (45) 100 12/11/18 15:30 74 16 102/33 (56) 98 12/11/18 15:01 75 16 40 12/11/18 15:00 75 15 114/37 (62) 99 12/11/18 14:26 72 15 100 Intake and Output 12/11/18 12/12/18 18:59 06:59 Intake Total 305.000 ml 335 ml Output Total 5 ml 0 ml Balance 300.000 ml 335 ml Free Water 30 ml IV Total 275.000 ml 55 ml Tube Feeding 280 ml Output Urine Total 5 ml 0 ml # Bowel Movements 2 2 Laboratory Tests 12/12/18 05:30: White Blood Count 25.5*H, Red Blood Count 2.89L, Hemoglobin 9.5L, Hematocrit 29.1L, Mean Corpuscular Volume 101H, Mean Corpuscular Hemoglobin 32.8H, Mean Corpuscular Hemoglobin Concent 32.7, Red Cell Distribution Width 19.8H, Platelet Count 160, Mean Platelet Volume 8.4, Neutrophils (%) (Auto) , Lymphocytes (%) (Auto) , Monocytes (%) (Auto) , Eosinophils (%) (Auto) , Basophils (%) (Auto) , Differential Total Cells Counted 100, Neutrophils % ( Manual) 92H, Lymphocytes % (Manual) 2L, Monocytes % (Manual) 6, Eosinophils % ( Manual) 0, Basophils % (Manual) 0, Band Neutrophils 0, Platelet Estimate Adequate, Platelet Morphology Normal, Anisocytosis 1+, Macrocytosis 1+, Target Cells 1+, Sodium Level 134L, Potassium Level 3.8, Chloride Level 99, Carbon Dioxide Level 24, Anion Gap 11, Blood Urea Nitrogen 65H, Creatinine 3.6H, Estimat Glomerular Filtration Rate 17.0, Glucose Level 102, Uric Acid 5.6, Calcium Level 9.0, Phosphorus Level 3.0, Magnesium Level 1.9, Total Bilirubin 3.3H, Direct Bilirubin 2.5H, Aspartate Amino Transf (AST/SGOT) 35, Alanine Aminotransferase (ALT/SGPT) 10L, Alkaline Phosphatase 178H, Troponin I 0.499H, Pro-B-Type Natriuretic Peptide > 82105D, Total Protein 6.9, Albumin 1.8L, Globulin 5.1, Albumin/Globulin Ratio 0.4L Height (Feet): 5 Height (Inches): 4.00 Weight (Pounds): 125 Objective General: calm, appears stated age, intubated Head: normocephalic, without obvious abnormality, atraumatic Eyes: conjunctivae/corneas clear. PERRL, EOM's intact Throat: lips, mucosa, and tongue normal. MMM Neck: supple, symmetrical, trachea midline, and no JVD Lungs: b/l air entry Heart: regular rate and rhythm, S1, S2 normal, no murmur, click, rub or gallop Abdomen: soft, non-tender, non-distended, bowel sounds normal; no masses or organomegaly Extremities: L BKA, R AKA with dressing CDI Pulses: +1 pulse Skin: skin color, texture, turgor normal; no rashes or lesions Neurologic: grossly normal Frieda Miller MD Dec 12, 2018 13:41
--- NOTE | 2018-12-12 14:45 | NUR ---
NURSE NOTES: Perineal care and bed linen change provided after x1 BM (soft/formed, greenish brown stool). Pt repositioned; resting in stable condition.
--- NOTE | 2018-12-12 14:45 | Surgery Progress Note ---
Surgery Progress Note Subjective Procedure Performed right above knee amputation Additional Comments s/p right aka. transfused 2 units. in icu on vent still. labs noted. Objective Last 24 Hour Vital Signs Date Time Temp Pulse Resp B/P (MAP) Pulse Ox O2 Delivery O2 Flow Rate FiO2 12/12/18 14:00 74 16 112/38 (62) 100 12/12/18 13:00 73 16 114/35 (61) 100 12/12/18 12:50 73 18 40 12/12/18 12:43 98.5 12/12/18 12:00 98.2 76 16 125/54 (77) 100 12/12/18 12:00 76 12/12/18 12:00 Mechanical Ventilator 12/12/18 12:00 40 12/12/18 11:20 Mechanical Ventilator 12/12/18 11:10 100 12/12/18 11:10 78 12 12/12/18 11:05 84 18 40 12/12/18 11:00 74 16 129/51 (77) 100 12/12/18 10:00 75 18 117/47 (70) 100 12/12/18 09:00 74 16 142/68 (92) 100 12/12/18 09:00 79 16 40 12/12/18 08:00 40 12/12/18 08:00 Mechanical Ventilator 12/12/18 08:00 73 12/12/18 08:00 98.5 74 16 133/54 (80) 100 12/12/18 07:08 72 16 40 12/12/18 07:00 73 16 132/61 (84) 100 12/12/18 06:00 75 16 139/50 (79) 100 12/12/18 05:28 74 17 40 12/12/18 05:00 73 16 128/58 (81) 100 12/12/18 04:00 Mechanical Ventilator 12/12/18 04:00 40 12/12/18 04:00 96.3 73 18 137/68 (91) 100 12/12/18 04:00 72 12/12/18 03:56 81 15 40 12/12/18 03:00 71 11 121/60 (80) 100 12/12/18 02:14 71 16 135/71 (92) 100 12/12/18 02:00 70 6 139/69 (92) 100 12/12/18 01:15 74 16 40 12/12/18 01:00 71 17 134/69 (90) 100 12/12/18 00:00 97.7 70 16 130/68 (88) 100 12/12/18 00:00 40 12/12/18 00:00 Mechanical Ventilator 12/11/18 23:00 71 18 40 12/11/18 23:00 74 16 109/39 (62) 100 12/11/18 22:00 73 16 111/45 (67) 100 12/11/18 21:00 68 17 92/30 (50) 100 12/11/18 20:57 68 17 40 12/11/18 20:24 102/35 12/11/18 20:00 40 12/11/18 20:00 Mechanical Ventilator 12/11/18 20:00 98.4 67 16 103/31 (55) 100 12/11/18 20:00 73 12/11/18 19:10 69 16 40 12/11/18 19:00 69 16 102/35 (57) 100 12/11/18 18:00 70 16 95/29 (51) 100 12/11/18 17:00 70 16 97/28 (51) 96 12/11/18 16:50 70 16 40 12/11/18 16:30 71 16 100/31 (54) 95 12/11/18 16:00 40 12/11/18 16:00 93 12/11/18 16:00 Mechanical Ventilator 12/11/18 16:00 98.3 72 16 89/24 (45) 100 12/11/18 15:30 74 16 102/33 (56) 98 12/11/18 15:01 75 16 40 12/11/18 15:00 75 15 114/37 (62) 99 I&O Intake and Output 12/11/18 12/12/18 19:00 07:00 Intake Total 305.000 ml 375 ml Output Total 5 ml 0 ml Balance 300.000 ml 375 ml Free Water 30 ml IV Total 275.000 ml 55 ml Tube Feeding 320 ml Output Urine Total 5 ml 0 ml # Bowel Movements 2 2 Dressing: dry Wound: clean Drains: other Cardiovascular: RSR Respiratory: decreased breath sounds Abdomen: soft, present bowel sounds, non-distended Extremities: other Laboratory Tests Test 12/12/18 05:30 White Blood Count 25.5 K/UL (4.8-10.8) *H Red Blood Count 2.89 M/UL (4.70-6.10) L Hemoglobin 9.5 G/DL (14.2-18.0) L Hematocrit 29.1 % (42.0-52.0) L Mean Corpuscular Volume 101 FL (80-99) H Mean Corpuscular Hemoglobin 32.8 PG (27.0-31.0) H Mean Corpuscular Hemoglobin Concent 32.7 G/DL (32.0-36.0) Red Cell Distribution Width 19.8 % (11.6-14.8) H Platelet Count 160 K/UL (150-450) Mean Platelet Volume 8.4 FL (6.5-10.1) Neutrophils (%) (Auto) % (45.0-75.0) Lymphocytes (%) (Auto) % (20.0-45.0) Monocytes (%) (Auto) % (1.0-10.0) Eosinophils (%) (Auto) % (0.0-3.0) Basophils (%) (Auto) % (0.0-2.0) Differential Total Cells Counted 100 Neutrophils % (Manual) 92 % (45-75) H Lymphocytes % (Manual) 2 % (20-45) L Monocytes % (Manual) 6 % (1-10) Eosinophils % (Manual) 0 % (0-3) Basophils % (Manual) 0 % (0-2) Band Neutrophils 0 % (0-8) Platelet Estimate Adequate Platelet Morphology Normal Anisocytosis 1+ Macrocytosis 1+ Target Cells 1+ Sodium Level 134 MMOL/L (136-145) L Potassium Level 3.8 MMOL/L (3.5-5.1) Chloride Level 99 MMOL/L (98-107) Carbon Dioxide Level 24 MMOL/L (21-32) Anion Gap 11 mmol/L (5-15) Blood Urea Nitrogen 65 mg/dL (7-18) H Creatinine 3.6 MG/DL (0.55-1.30) H Estimat Glomerular Filtration Rate 17.0 mL/min (>60) Glucose Level 102 MG/DL (74-106) Uric Acid 5.6 MG/DL (2.6-7.2) Calcium Level 9.0 MG/DL (8.5-10.1) Phosphorus Level 3.0 MG/DL (2.5-4.9) Magnesium Level 1.9 MG/DL (1.8-2.4) Total Bilirubin 3.3 MG/DL (0.2-1.0) H Direct Bilirubin 2.5 MG/DL (0.0-0.3) H Aspartate Amino Transf (AST/SGOT) 35 U/L (15-37) Alanine Aminotransferase (ALT/SGPT) 10 U/L (12-78) L Alkaline Phosphatase 178 U/L (46-116) H Troponin I 0.499 ng/mL (0.000-0.056) Pro-B-Type Natriuretic Peptide > 40845 pg/mL (0-125) H Total Protein 6.9 G/DL (6.4-8.2) Albumin 1.8 G/DL (3.4-5.0) L Globulin 5.1 g/dL Albumin/Globulin Ratio 0.4 (1.0-2.7) L Plan Problems: (1) Sepsis Assessment & Plan: Patient presented on admission with necrotic wounds distal Right lower extremity and R foot -dorsal,lateral and medial aspects. R 3rd metatarsal is black. Chronic ulcer R heel that is also necrotic. Wounds/foot malodorous. Small amount brown exudate noted from dorsal wound. Soft medial necrotic 3cm area noted with denuded bleeding tissue just anterior to it. soft tissue overall with soft edema. possible abscess underlying. skin blistering and sloth noted. Partial thickness Sacral pressure injury. Base of wound is moist -viable with dark brown borders. Periwound without induration or erythema (L)4cm x (W)5cm. Currently afebrile and hemodynamically stable. Patient continues to have a leukocytosis. Still pending imaging. Given the appearance of the leg and wound there is significant concern for potential need of amputation. MRI right foot and ankle reviewed Tx.Plan: CTA chest abdomen pelvis with runoff pending Appreciate vascular and Podiatry eval for limb salvage Wash foot daily, apply xeroform and abd, wrap with kerlix Apply Moisture Barrier Paste (Triad /Calazime )to sacrum. Cover with Optifoam drsg .Change every 3 days and prn. APM/JANELL mattress. Reposition at least Q 2hours or as tolerated. Off-Load R heel with pillow. 12/08 - Had long discussion at bedside about condition, MRI findings, clinical exam and physical exam. Patient will likely need right BKA or depending on CTA possibly even AKA. He has had left BKA prior. I asked patient who is awake and alert about how he feels about this and he stated he is considering what to do. Recently he has asked for help with writing a living will for his children in [place]. He states he is not sure if he is interested in having another amputation even if his life is at risk. He states currently he is not ready or interested in amputation. I spoke more with him and really expressed the concerns given exam and clinical date. He seems to understand and stated he will consider it over the next few days. will await results and cont with follow with patient to see what he would like. thank you 12/11 - Have been monitoring patient for past few days and discussing care with consultants. CTA reviewed. labs noted. condition deteriorating. Patient now in ICU intubated for respiratory distress. He is awake, alert, and responsive. follows commands. he is able to nod his head, move his extremities, blink when asked. Discussion had at bedside and I explained to patient his deteriorating condition. I explained that we are making all attempts to contact sister in [place]. I reviewed his blood work with him, his clinical condition, and how severe the infection in his right leg is. We discussed his concerns about amputation prior and I addressed recommendations again. I explained to patient that based on CTA findings, exam, and results, a AKA is advised. I explained to him that he is very sick and may continue to deteriorate. I explained to him that AKA amputation is recommended strongly and can possibly save his life. When asked if he wishes to proceed at this time in attempts to save his life, patient expressed that he is ready and would like to proceed. Discussed with consultants and socially responsible investment adviser. Per socially responsible investment adviser, patient was clear he wanted full care initially including CPR, intubated , lines. He was initially reluctant for another amputation which he rightly should be but now is in understanding about the severity of his condition. Will proceed with right AKA today. s/p right AKA recovering in ICU labs noted wound c/d/i flap viable noted to have stool on dressings and requiring change cont abx will monitor (2) Hx of BKA Damian Michaels Dec 12, 2018 14:45
--- NOTE | 2018-12-12 16:56 | NUR ---
Social Service Note Letter completed and emailed to family in [place] to help expedite visa for sister to visit patient. SW also attempted to contact sister Orin [phone] and brother in law Julian [phone] using [employer] #[id number] however no answer and unable to leave a message. Will follow up in AM.
--- NOTE | 2018-12-12 17:10 | NUR ---
NURSE NOTES: Pt denies chest pain and is calm and sleeping in bed. Notified Dr Miller regarding elevated Troponin 0.636 and EKG result- SR with 1 AVB, same as baseline. Order to continue EKG and Troponin in 4 hours received and noted. Will endorse to night cleaner regarding 2000 EKG and Troponin.
--- NOTE | 2018-12-12 19:26 | NUR ---
RESPIRATORY NOTE: RECEIVED PT ON CURRENT VENT SETTINGS: AC 16, VT600, PEEP +5, FIO2 55%. PT AREN CURRENT VENT SETTINGS WELL. PT ORALLY INTUBATED WITH ETT 7.5 AT 22cm LL. ETT SECURE AND PATENT. VENT PLUGGED INTO RED OUTLET. ALARMS ARE ON AND AUDIBLE. WILL CONTINUE MONITORING PT. Addendum: 12/12/18 at 2307 by DANA CHOWDHURY RT RESPIRATORY NOTE: RECEIVED PT ON CURRENT VENT SETTINGS: AC 16, VT600, PEEP +5, FIO2 40%. PT AREN CURRENT VENT SETTINGS WELL. PT ORALLY INTUBATED WITH ETT 7.5 AT 22cm LL. ETT SECURE AND PATENT. VENT PLUGGED INTO RED OUTLET. ALARMS ARE ON AND AUDIBLE. WILL CONTINUE MONITORING PT.
--- NOTE | 2018-12-12 19:36 | NUR ---
HAND-OFF: Report given to Christelle ZULETA. Pt is resting in bed in stable condition. Endorsed plan of care.
--- NOTE | 2018-12-12 19:37 | NUR ---
NURSE NOTES: NURSE NOTES: Endorsement received from Kenzie hicksRN and SONG Gant. Patient opens eyes spontaneously. Follows simple commands. Orally intubated with ET 7.5, 23 lipline. AC 16 Vt 600 PEEP 5, 40%. NGT patent and intact. Placement rechecked per auscultation. Nepro 40 ml/hr. No residual. Right upper arm AV shunt. Bruit and thrill present. Left forearm g 20, left hand g20. On P200 mattress. Bed locked and in low position. Bed alarm on. Will continue to monitor.
--- NOTE | 2018-12-12 20:47 | NUR ---
NURSE NOTES: Troponin trending down. Dr. Miller informed of troponin result. Made aware that Dr Brantley has not made rounds yet. As per her to repeat troponin and 12 L EKG after 6 hours.
[2018-12-12] MEDS ORDERED: Meropenem 500 MG in NS 55 ML IVPB SCH (21:00)
[2018-12-12] MEDS: Betadine 4oz Bottle TOPIC SCH (21:05)
--- NOTE | 2018-12-12 23:00 | NUR ---
NURSE NOTES: Patient asleep. Arousable per light touch and name. No sign of pain or discomfort.
[2018-12-13] VITALS (24 sets, daily range): BP systolic 105–141; BP diastolic 38–65
--- NOTE | 2018-12-13 | NUR ---
NURSE NOTES: Blood sugar 104. Tolerating feeding. No sign of pain or discomfort. No bleeding from the right stump.
--- NOTE | 2018-12-13 02:50 | NUR ---
NURSE NOTES: Informed Dr Miller regarding troponin 0.601. Left message. Awaiting for return call.
--- NOTE | 2018-12-13 04:00 | NUR ---
NURSE NOTES: Bed bath, oral care, change of linens done.
[2018-12-13 05:20] LABS: HEMOGLOBIN 9.4 G/DL (14.2-18.0); MEAN CORPUSCULAR VOLUME 97 FL (80-99); PLATELET COUNT 108 K/UL (150-450); RED BLOOD COUNT 2.88 M/UL (4.70-6.10); RED CELL DISTRIBUTION WIDTH 17.9 % (11.6-14.8)
[2018-12-13 05:45] LABS: PHOSPHORUS 3.3 MG/DL (2.5-4.9)
[2018-12-13 06:01] LABS: WHITE BLOOD COUNT 24.2 K/UL (4.8-10.8)
[2018-12-13 06:04] LABS: ALANINE AMINOTRANSFERASE 8 U/L (12-78); ALBUMIN 1.5 G/DL (3.4-5.0); ALBUMIN/GLOBULIN RATIO 0.3 (1.0-2.7); ALKALINE PHOSPHATASE 234 U/L (46-116); ANION GAP 15 mmol/L (5-15); ASPARTATE AMINO TRANSFERASE 34 U/L (15-37); BILIRUBIN,TOTAL 2.7 MG/DL (0.2-1.0); BLOOD UREA NITROGEN 81 mg/dL (7-18); CALCIUM 8.6 MG/DL (8.5-10.1); CARBON DIOXIDE 19 MMOL/L (21-32); CHLORIDE 98 MMOL/L (98-107); CREATININE 4.1 MG/DL (0.55-1.30); POTASSIUM 3.9 MMOL/L (3.5-5.1); SODIUM 132 MMOL/L (136-145)
--- NOTE | 2018-12-13 06:10 | NUR ---
NURSE NOTES: WBC 24.2, not informed due to result is trending down.
[2018-12-13 06:24] LABS: BILIRUBIN,DIRECT 1.9 MG/DL (0.0-0.3)
--- NOTE | 2018-12-13 07:02 | NUR ---
RESPIRATORY NOTE: received pt on vent, intubated with ett 7.5 placed 22cm at the lip; secured via anchor fast. no redness or skin tears seen around facial area. attempt to wean pt later this morning. vent alarms are set and audible, plugged into the redoutlet with ambu bag at bedside. will cont to monitor.
--- NOTE | 2018-12-13 07:05 | NUR ---
NURSE NOTES: Endorsed to Kenzie hicks RN
--- NOTE | 2018-12-13 07:06 | NUR ---
NURSE NOTES: Report received from SONG Bourgeois. Pt is sleeping and able to open eyes to name/voice/touch, mainly [place] Irish speaking but able to communicate with simple [place]ican. ETT 7.5/ 23cm. AC 16, TV600, Peep 5, FIO2 40%. O2 Sat 100%. No respiratory distress noted. Right NGT in place, receiving Nepro at 40cc/hour with no residual. Slightly distended abdomen. Right upper arm AV shunt for HD. IV to left FA G20 and left hand G22 patent/intact. Skin has sacral dressing dry and intact. Hx of status post left BKA, and recent right AKA, dressing in place on right stump, dressing dry/intact, on P200 mattress. Bed in lowest position, three side rails up, brakes engaged, alarm on, call light within easy reach. Sinus rhythm on envelope sealer, vitals stable. Will continue to monitor pt, and follow plan of care per MD orders and protocol.
--- NOTE | 2018-12-13 08:00 | NUR ---
NURSE NOTES: Report received from SONG Woodard. Pt is sleeping and able to open eyes to name/voice/touch, mainly Albanian speaking but able to communicate with simple Lao. ETT 7.5/ 23cm. AC 16, TV600, Peep 5, FIO2 40%. O2 Sat 100%. No respiratory distress noted. Right NGT in place, receiving Nepro at 40cc/hour with no residual. Slightly distended abdomen. Right upper arm AV shunt for HD. IV to left FA G20 and left hand G22 patent/intact. Skin has sacral dressing dry and intact. Hx of status post left BKA, and recent right AKA, dressing in place on right stump, dressing dry/intact, on P200 mattress. Bed in lowest position, three side rails up, brakes engaged, alarm on, call light within easy reach. Sinus rhythm on court recording monitor, vitals stable. Will continue to monitor pt, and follow plan of care per MD orders and protocol.
[2018-12-13] MEDS: Renvela 800mg Pkt NG SCH ×3 (08:29→18:33)
[2018-12-13] MEDS: Pyridoxine 50mg tab NG SCH (08:30)
[2018-12-13] MEDS: Docusate 100mg/10ml Liq NG SCH (08:30)
--- NOTE | 2018-12-13 08:53 | NUR ---
RADIOLOGY DEPT., CHEST X-RAY DONE.-P.DYE
--- NOTE | 2018-12-13 09:39 | NUR ---
ROLLER HELPER Co-Signature: Reviewed patient's chart. Reviewed and approved ROLLER HELPER notes Addendum: 12/13/18 at 0939 by SAMIR STEPHENSON PT,MG Amended: Links added.
--- NOTE | 2018-12-13 10:02 | NUR ---
NURSE NOTES: Turned and repositioned. Kept dry and clean. Tolerating TF well.
--- NOTE | 2018-12-13 10:08 | Pulmonolgy Critical Care Note ---
Critical Care - Asmt/Plan Problems: (1) Acute respiratory failure (2) Sepsis (3) ESRF (end stage renal failure) (4) Diabetes mellitus (5) S/P BKA (below knee amputation) (6) Osteomyelitis Respiratory: monitor respiratory rate, adjust FIO2, CXR Cardiac: continue to monitor HR/BP Renal: F/U I&O, keep IV fluid Infectious Disease: check cultures, continue antibiotics Gastrointestinal: continue feedings/current rate Endocrine: monitor blood sugar, check HgA1C Hematologic: monitor H/H, transfuse if hgb<8.5 Neurologic: PRN Ativan, PRN Morphine, keep patient comfortable Affect: PRN ativan Prophylaxis: Protonix Time Spent (Minutes): 40 Notes Reviewed: box office clerk, renal Discussed with: nurses, consultants, onsite case managerpayroll manager - Objective Last 24 Hour Vital Signs Date Time Temp Pulse Resp B/P (MAP) Pulse Ox O2 Delivery O2 Flow Rate FiO2 12/13/18 09:01 73 16 30 12/13/18 07:00 72 16 131/59 (83) 100 12/13/18 07:00 71 16 30 12/13/18 06:00 72 16 130/65 (86) 100 12/13/18 05:05 72 16 30 30 12/13/18 05:00 71 16 131/65 (87) 100 12/13/18 04:00 40 12/13/18 04:00 Mechanical Ventilator 12/13/18 04:00 98.0 74 17 126/54 (78) 97 12/13/18 04:00 75 12/13/18 03:09 74 16 30 40 12/13/18 03:00 73 16 123/52 (75) 100 12/13/18 02:00 75 16 115/47 (69) 100 12/13/18 01:00 76 16 111/47 (68) 100 12/13/18 00:36 75 16 30 40 12/13/18 00:00 76 16 131/57 (81) 100 12/13/18 00:00 75 12/13/18 00:00 Mechanical Ventilator 12/12/18 23:00 76 16 117/43 (67) 100 12/12/18 22:32 77 16 30 40 12/12/18 22:00 77 16 124/44 (70) 100 12/12/18 21:00 76 16 128/46 (73) 100 12/12/18 20:42 76 16 40 40 12/12/18 20:00 75 12/12/18 20:00 Mechanical Ventilator 12/12/18 20:00 98.2 76 16 115/44 (67) 100 12/12/18 20:00 40 12/12/18 19:26 77 16 40 40 12/12/18 19:00 76 16 128/52 (77) 100 12/12/18 18:05 98.6 12/12/18 18:00 76 16 108/31 (56) 100 12/12/18 17:03 79 16 40 12/12/18 17:00 78 16 118/47 (70) 100 12/12/18 16:00 98.6 74 16 112/38 (62) 100 12/12/18 16:00 Mechanical Ventilator 12/12/18 16:00 78 18 119/55 (76) 100 12/12/18 16:00 77 12/12/18 16:00 40 12/12/18 15:00 76 16 116/42 (66) 100 12/12/18 14:30 70 18 40 12/12/18 14:00 74 16 112/38 (62) 100 12/12/18 13:00 73 16 114/35 (61) 100 12/12/18 12:50 73 18 40 12/12/18 12:00 98.2 76 16 125/54 (77) 100 12/12/18 12:00 76 12/12/18 12:00 Mechanical Ventilator 12/12/18 12:00 40 12/12/18 11:20 Mechanical Ventilator 12/12/18 11:10 100 12/12/18 11:10 78 12 12/12/18 11:05 84 18 40 12/12/18 11:00 74 16 129/51 (77) 100 Status: awake Condition: critical HEENT: atraumatic, normocephalic Lungs: clear Heart: HR/BP stable Abdomen: soft, non-tender Extremities: no C/C/E, edema Decubiti: location Accucheck: 107 Critical Care - Subjective ROS Limited/Unobtainable: No ICU Day: 4 Intubation Day: 4 Interval Events: didn't tolerate weaning yesterday FI02: 30 Vent Support Breath Rate: 16 Vent Support Mode: AC Vent Tidal Volume: 600 Sputum Amount: Scant PEEP: 5.0 PIP: 34 Tube Feeding Amount: 40 I&O: Intake and Output 12/12/18 12/13/18 19:00 07:00 Intake Total 565 ml 630 ml Output Total 0 ml 0 ml Balance 565 ml 630 ml Free Water 100 ml Tube Feeding 440 ml 480 ml Other 125 ml 50 ml Output Urine Total 0 ml 0 ml # Bowel Movements 3 1 CXR: increasing right middle lob infiltrate, ET-Tube: 7.5 ET Position: 22 Labs: Laboratory Tests Test 12/12/18 16:00 12/12/18 19:50 12/13/18 02:00 12/13/18 05:00 Troponin I 0.636 ng/mL (0.000-0.056) 0.582 ng/mL (0.000-0.056) 0.601 ng/mL (0.000-0.056) White Blood Count 24.2 K/UL (4.8-10.8) *H Red Blood Count 2.88 M/UL (4.70-6.10) L Hemoglobin 9.4 G/DL (14.2-18.0) L Hematocrit 28.0 % (42.0-52.0) L Mean Corpuscular Volume 97 FL (80-99) Mean Corpuscular Hemoglobin 32.6 PG (27.0-31.0) H Mean Corpuscular Hemoglobin Concent 33.5 G/DL (32.0-36.0) Red Cell Distribution Width 17.9 % (11.6-14.8) H Platelet Count 108 K/UL (150-450) L Mean Platelet Volume 9.3 FL (6.5-10.1) Neutrophils (%) (Auto) % (45.0-75.0) Lymphocytes (%) (Auto) % (20.0-45.0) Monocytes (%) (Auto) % (1.0-10.0) Eosinophils (%) (Auto) % (0.0-3.0) Basophils (%) (Auto) % (0.0-2.0) Differential Total Cells Counted 100 Neutrophils % (Manual) 91 % (45-75) H Lymphocytes % (Manual) 4 % (20-45) L Monocytes % (Manual) 5 % (1-10) Eosinophils % (Manual) 0 % (0-3) Basophils % (Manual) 0 % (0-2) Band Neutrophils 0 % (0-8) Platelet Estimate Decreased L Platelet Morphology Normal Anisocytosis 1+ Macrocytosis 1+ Target Cells 1+ Sodium Level 132 MMOL/L (136-145) L Potassium Level 3.9 MMOL/L (3.5-5.1) Chloride Level 98 MMOL/L (98-107) Carbon Dioxide Level 19 MMOL/L (21-32) L Anion Gap 15 mmol/L (5-15) Blood Urea Nitrogen 81 mg/dL (7-18) H Creatinine 4.1 MG/DL (0.55-1.30) H Estimat Glomerular Filtration Rate 14.7 mL/min (>60) Glucose Level 112 MG/DL (74-106) H Calcium Level 8.6 MG/DL (8.5-10.1) Phosphorus Level 3.3 MG/DL (2.5-4.9) Magnesium Level 1.9 MG/DL (1.8-2.4) Total Bilirubin 2.7 MG/DL (0.2-1.0) H Direct Bilirubin 1.9 MG/DL (0.0-0.3) H Aspartate Amino Transf (AST/SGOT) 34 U/L (15-37) Alanine Aminotransferase (ALT/SGPT) 8 U/L (12-78) L Alkaline Phosphatase 234 U/L (46-116) H Pro-B-Type Natriuretic Peptide > 29265 pg/mL (0-125) H Total Protein 6.4 G/DL (6.4-8.2) Albumin 1.5 G/DL (3.4-5.0) L Globulin 4.9 g/dL Albumin/Globulin Ratio 0.3 (1.0-2.7) L Random Vancomycin Level 27.0 ug/mL Test 12/13/18 07:55 12/13/18 08:45 Troponin I 0.568 ng/mL (0.000-0.056) Arterial Blood pH 7.479 (7.350-7.450) Arterial Blood Partial Pressure CO2 28.4 mmHg (35.0-45.0) L Arterial Blood Partial Pressure O2 68.7 mmHg (75.0-100.0) L Arterial Blood HCO3 20.6 mmol/L (22.0-26.0) L Arterial Blood Oxygen Saturation 93.8 % (95-100) L Arterial Blood Base Excess -1.9 (-2-2) Jose Test Positive Tamia Lerma MD Dec 13, 2018 10:08
--- NOTE | 2018-12-13 11:48 | Nephrology Progress Note ---
Assessment/Plan Problem List: (1) ESRF (end stage renal failure) (2) Leukocytosis Assessment: sepsis (3) CHF (congestive heart failure) (4) Acute respiratory failure (5) Hyperbilirubinemia (6) Elevated troponin I level Assessment admitted with sepsis and shortness of breath (1) ESRD (end stage renal disease) right arm fistula (2) Possible Fluid overload, unspecified (3) h/o Bradycardia (4) Anemia (5) h/o Pleural effusion (6) Elevated troponin (7) Allergy Dialntin & PCN (8) Elevated Bili Plan intubated on Vent HD last 12/10 done, next 12/14 on Meropenem , Vanco- I will dose Vanco IV bolus as needed adjust BP meds 2D Echo 55% EjFx stop beta blockers for low HR hydralazin and procardia as needed reviewe CXR : Pneumonia per consultants Subjective ROS Limited/Unobtainable: Yes Objective Objective Last 24 Hour Vital Signs Date Time Temp Pulse Resp B/P (MAP) Pulse Ox O2 Delivery O2 Flow Rate FiO2 12/13/18 11:00 75 16 126/60 (82) 100 12/13/18 11:00 72 16 30 12/13/18 10:00 73 16 131/57 (81) 100 12/13/18 09:01 73 16 30 12/13/18 09:00 97.6 73 16 128/58 (81) 100 12/13/18 08:00 75 12/13/18 08:00 73 16 118/51 (73) 100 12/13/18 08:00 40 12/13/18 08:00 Mechanical Ventilator 12/13/18 07:00 72 16 131/59 (83) 100 12/13/18 07:00 71 16 30 12/13/18 06:00 72 16 130/65 (86) 100 12/13/18 05:05 72 16 30 30 12/13/18 05:00 71 16 131/65 (87) 100 12/13/18 04:00 40 12/13/18 04:00 Mechanical Ventilator 12/13/18 04:00 98.0 74 17 126/54 (78) 97 12/13/18 04:00 75 12/13/18 03:09 74 16 30 40 12/13/18 03:00 73 16 123/52 (75) 100 12/13/18 02:00 75 16 115/47 (69) 100 12/13/18 01:00 76 16 111/47 (68) 100 12/13/18 00:36 75 16 30 40 12/13/18 00:00 76 16 131/57 (81) 100 12/13/18 00:00 75 12/13/18 00:00 Mechanical Ventilator 12/12/18 23:00 76 16 117/43 (67) 100 12/12/18 22:32 77 16 30 40 12/12/18 22:00 77 16 124/44 (70) 100 12/12/18 21:00 76 16 128/46 (73) 100 12/12/18 20:42 76 16 40 40 12/12/18 20:00 75 12/12/18 20:00 Mechanical Ventilator 12/12/18 20:00 98.2 76 16 115/44 (67) 100 12/12/18 20:00 40 12/12/18 19:26 77 16 40 40 12/12/18 19:00 76 16 128/52 (77) 100 12/12/18 18:05 98.6 12/12/18 18:00 76 16 108/31 (56) 100 12/12/18 17:03 79 16 40 12/12/18 17:00 78 16 118/47 (70) 100 12/12/18 16:00 98.6 74 16 112/38 (62) 100 12/12/18 16:00 Mechanical Ventilator 12/12/18 16:00 78 18 119/55 (76) 100 12/12/18 16:00 77 12/12/18 16:00 40 12/12/18 15:00 76 16 116/42 (66) 100 12/12/18 14:30 70 18 40 12/12/18 14:00 74 16 112/38 (62) 100 12/12/18 13:00 73 16 114/35 (61) 100 12/12/18 12:50 73 18 40 12/12/18 12:00 98.2 76 16 125/54 (77) 100 12/12/18 12:00 76 12/12/18 12:00 Mechanical Ventilator 12/12/18 12:00 40 Intake and Output 12/12/18 12/13/18 19:00 07:00 Intake Total 565 ml 630 ml Output Total 0 ml 0 ml Balance 565 ml 630 ml Free Water 100 ml Tube Feeding 440 ml 480 ml Other 125 ml 50 ml Output Urine Total 0 ml 0 ml # Bowel Movements 3 1 Laboratory Tests 12/12/18 16:00: Troponin I 0.636H 12/12/18 19:50: Troponin I 0.582H 12/13/18 02:00: Troponin I 0.601H 12/13/18 05:00: White Blood Count 24.2*H, Red Blood Count 2.88L, Hemoglobin 9.4L, Hematocrit 28.0L, Mean Corpuscular Volume 97, Mean Corpuscular Hemoglobin 32.6H, Mean Corpuscular Hemoglobin Concent 33.5, Red Cell Distribution Width 17.9H, Platelet Count 108L, Mean Platelet Volume 9.3, Neutrophils (%) (Auto) , Lymphocytes (%) (Auto) , Monocytes (%) (Auto) , Eosinophils (%) (Auto) , Basophils (%) (Auto) , Differential Total Cells Counted 100, Neutrophils % ( Manual) 91H, Lymphocytes % (Manual) 4L, Monocytes % (Manual) 5, Eosinophils % ( Manual) 0, Basophils % (Manual) 0, Band Neutrophils 0, Platelet Estimate DecreasedL, Platelet Morphology Normal, Anisocytosis 1+, Macrocytosis 1+, Target Cells 1+, Sodium Level 132L, Potassium Level 3.9, Chloride Level 98, Carbon Dioxide Level 19L, Anion Gap 15, Blood Urea Nitrogen 81H, Creatinine 4.1H , Estimat Glomerular Filtration Rate 14.7, Glucose Level 112H, Calcium Level 8.6 , Phosphorus Level 3.3, Magnesium Level 1.9, Total Bilirubin 2.7H, Direct Bilirubin 1.9H, Aspartate Amino Transf (AST/SGOT) 34, Alanine Aminotransferase ( ALT/SGPT) 8L, Alkaline Phosphatase 234H, Pro-B-Type Natriuretic Peptide > 96067T , Total Protein 6.4, Albumin 1.5L, Globulin 4.9, Albumin/Globulin Ratio 0.3L, Random Vancomycin Level 27.0 12/13/18 07:55: Troponin I 0.568H 12/13/18 08:45: Arterial Blood pH 7.479H, Arterial Blood Partial Pressure CO2 28.4L, Arterial Blood Partial Pressure O2 68.7L, Arterial Blood HCO3 20.6L, Arterial Blood Oxygen Saturation 93.8L, Arterial Blood Base Excess -1.9, Jose Test Positive Height (Feet): 5 Height (Inches): 4.00 Weight (Pounds): 125 General Appearance: no apparent distress Cardiovascular: normal rate Respiratory/Chest: decreased breath sounds Abdomen: distended Extremities: other - unchanged Objective no change Alessandro Price MD Dec 13, 2018 11:48
--- NOTE | 2018-12-13 12:29 | General Progress Note ---
Assessment/Plan Problem List: (1) S/P BKA (below knee amputation) ICD Codes: Z89.519 - Acquired absence of unspecified leg below knee SNOMED: 12131198, 218232205 (2) Hx of BKA ICD Codes: Z89.519 - Acquired absence of unspecified leg below knee SNOMED: 959344463, 132205738 (3) Severe sepsis ICD Codes: A41.9 - Sepsis, unspecified organism; R65.20 - Severe sepsis without septic shock SNOMED: 83844635 (4) Diabetes mellitus ICD Codes: E11.9 - Type 2 diabetes mellitus without complications SNOMED: 77995563 (5) ESRF (end stage renal failure) ICD Codes: N18.6 - End stage renal disease SNOMED: 40871335 (6) Leukocytosis ICD Codes: D72.829 - Elevated white blood cell count, unspecified SNOMED: 578778802, 033346017 (7) CHF (congestive heart failure) ICD Codes: I50.9 - Heart failure, unspecified SNOMED: 91154952 (8) Anemia ICD Codes: D64.9 - Anemia, unspecified SNOMED: 558862468 Assessment/Plan Elevated residuals Dysphasia G-tube Macrocytic anemia Diarrhea C. difficile, negative Occult blood stool positive Elevated LFTs KUB negative G-tube feedings, Reglan 5 mg ATC Monitor H&H, PRN transfusions PPI Consider Imodium if patient has persistent diarrhea Follow-up cardiology recommendations for elevated troponin levels Trend LFTs, s/p amputation persistent leukocytosis>>> fu ID Subjective ROS Limited/Unobtainable: No Allergies: Coded Allergies: PENICILLINS (Unverified Allergy, Mild, 12/05/18) PHENYTOIN (Verified Allergy, Unknown, 10/17/18) Uncoded Allergies: PENICILLIN (Allergy, Mild, 11/17/18) Subjective coded yesterday Objective Last 24 Hour Vital Signs Date Time Temp Pulse Resp B/P (MAP) Pulse Ox O2 Delivery O2 Flow Rate FiO2 12/13/18 12:00 Mechanical Ventilator 12/13/18 12:00 40 12/13/18 11:00 75 16 126/60 (82) 100 12/13/18 11:00 72 16 30 12/13/18 10:00 73 16 131/57 (81) 100 12/13/18 09:01 73 16 30 12/13/18 09:00 97.6 73 16 128/58 (81) 100 12/13/18 08:00 75 12/13/18 08:00 73 16 118/51 (73) 100 12/13/18 08:00 40 12/13/18 08:00 Mechanical Ventilator 12/13/18 07:00 72 16 131/59 (83) 100 12/13/18 07:00 71 16 30 12/13/18 06:00 72 16 130/65 (86) 100 12/13/18 05:05 72 16 30 30 12/13/18 05:00 71 16 131/65 (87) 100 12/13/18 04:00 40 12/13/18 04:00 Mechanical Ventilator 12/13/18 04:00 98.0 74 17 126/54 (78) 97 12/13/18 04:00 75 12/13/18 03:09 74 16 30 40 12/13/18 03:00 73 16 123/52 (75) 100 12/13/18 02:00 75 16 115/47 (69) 100 12/13/18 01:00 76 16 111/47 (68) 100 12/13/18 00:36 75 16 30 40 12/13/18 00:00 76 16 131/57 (81) 100 12/13/18 00:00 75 12/13/18 00:00 Mechanical Ventilator 12/12/18 23:00 76 16 117/43 (67) 100 12/12/18 22:32 77 16 30 40 12/12/18 22:00 77 16 124/44 (70) 100 12/12/18 21:00 76 16 128/46 (73) 100 12/12/18 20:42 76 16 40 40 12/12/18 20:00 75 12/12/18 20:00 Mechanical Ventilator 12/12/18 20:00 98.2 76 16 115/44 (67) 100 12/12/18 20:00 40 12/12/18 19:26 77 16 40 40 12/12/18 19:00 76 16 128/52 (77) 100 12/12/18 18:05 98.6 12/12/18 18:00 76 16 108/31 (56) 100 12/12/18 17:03 79 16 40 12/12/18 17:00 78 16 118/47 (70) 100 12/12/18 16:00 98.6 74 16 112/38 (62) 100 12/12/18 16:00 Mechanical Ventilator 12/12/18 16:00 78 18 119/55 (76) 100 12/12/18 16:00 77 12/12/18 16:00 40 12/12/18 15:00 76 16 116/42 (66) 100 12/12/18 14:30 70 18 40 12/12/18 14:00 74 16 112/38 (62) 100 12/12/18 13:00 73 16 114/35 (61) 100 12/12/18 12:50 73 18 40 Intake and Output 12/12/18 12/13/18 18:59 06:59 Intake Total 565 ml 630 ml Output Total 0 ml 0 ml Balance 565 ml 630 ml Free Water 100 ml Tube Feeding 440 ml 480 ml Other 125 ml 50 ml Output Urine Total 0 ml 0 ml # Bowel Movements 2 2 Laboratory Tests 12/12/18 16:00: Troponin I 0.636H 12/12/18 19:50: Troponin I 0.582H 12/13/18 02:00: Troponin I 0.601H 12/13/18 05:00: White Blood Count 24.2*H, Red Blood Count 2.88L, Hemoglobin 9.4L, Hematocrit 28.0L, Mean Corpuscular Volume 97, Mean Corpuscular Hemoglobin 32.6H, Mean Corpuscular Hemoglobin Concent 33.5, Red Cell Distribution Width 17.9H, Platelet Count 108L, Mean Platelet Volume 9.3, Neutrophils (%) (Auto) , Lymphocytes (%) (Auto) , Monocytes (%) (Auto) , Eosinophils (%) (Auto) , Basophils (%) (Auto) , Differential Total Cells Counted 100, Neutrophils % ( Manual) 91H, Lymphocytes % (Manual) 4L, Monocytes % (Manual) 5, Eosinophils % ( Manual) 0, Basophils % (Manual) 0, Band Neutrophils 0, Platelet Estimate DecreasedL, Platelet Morphology Normal, Anisocytosis 1+, Macrocytosis 1+, Target Cells 1+, Sodium Level 132L, Potassium Level 3.9, Chloride Level 98, Carbon Dioxide Level 19L, Anion Gap 15, Blood Urea Nitrogen 81H, Creatinine 4.1H , Estimat Glomerular Filtration Rate 14.7, Glucose Level 112H, Calcium Level 8.6 , Phosphorus Level 3.3, Magnesium Level 1.9, Total Bilirubin 2.7H, Direct Bilirubin 1.9H, Aspartate Amino Transf (AST/SGOT) 34, Alanine Aminotransferase ( ALT/SGPT) 8L, Alkaline Phosphatase 234H, Pro-B-Type Natriuretic Peptide > 68578Q , Total Protein 6.4, Albumin 1.5L, Globulin 4.9, Albumin/Globulin Ratio 0.3L, Random Vancomycin Level 27.0 12/13/18 07:55: Troponin I 0.568H 12/13/18 08:45: Arterial Blood pH 7.479H, Arterial Blood Partial Pressure CO2 28.4L, Arterial Blood Partial Pressure O2 68.7L, Arterial Blood HCO3 20.6L, Arterial Blood Oxygen Saturation 93.8L, Arterial Blood Base Excess -1.9, Jose Test Positive Height (Feet): 5 Height (Inches): 4.00 Weight (Pounds): 125 General Appearance: lethargic EENT: normal ENT inspection Neck: supple Cardiovascular: tachycardia Respiratory/Chest: decreased breath sounds Abdomen: normal bowel sounds, non tender, soft Extremities: non-tender Antione Salomon MD Dec 13, 2018 12:29
--- NOTE | 2018-12-13 12:30 | NUR ---
NURSE NOTES: Turned and repositioned. Kept dry and clean. Tolerating TF well. thin secretions noted on sxn.
--- NOTE | 2018-12-13 13:05 | Diagnostic Imaging Report ---
Indication: Dyspnea Comparison: None A single view chest radiograph was obtained. Findings: Slightly heterogeneous interstitial disease noted probably on the basis of heart failure. Correlate clinically. Tubes and lines are stable. IMPRESSION: Suspected mild CHF/interstitial edema.
--- NOTE | 2018-12-13 13:31 | Infectious Diseases Prog Note ---
Assessment/Plan Assessment/Plan ASSESSMENT AND PLAN: 1. right ankle/foot/leg infected wound/gangrene/necrosis/?ischemia/osteomyelitis , sepsis, esbl e.coli uti, MRSA pna, leukocytosis - s/p right aka, on vent post op - vancomycin and meropenem - monitor labs and chest x-ray - monitor leukocytosis - notes reviewed - d/w RN 2. The patient has end-stage renal disease on hemodialysis. He has a shunt. No hemodialysis line. 3. pvd - bilateral leg amputation 4. Anemia, hx uti 5. Elevated creatinine. 6. Renal failure. 7. The patient has history of diabetes. 8. Hypertension. 9. COPD. 10. CHF. 11. Hypertension and diabetes treatment per primary. 12. Allergies to penicillin and phenytoin, tolerates meropenem. 13. Social history is negative for smoking, alcohol, or drug abuse. 14. Family history is noncontributory. 15. MAR was noted. 16. Case discussed with RN. 17. Continue treatment per primary consultants. 18. Case communicated with Dr. Frieda Clay. 19. Orders were noted and entered. 20. Continue treatment per primary consultants. 21. mrsa and vre colonization Subjective Constitutional: Reports: fatigue, other - + vent ; Denies: fever HEENT: Reports: congestion Respiratory: Reports: shortness of breath Cardiovascular: Reports: other - no pressors Gastrointestinal/Abdominal: Denies: nausea, vomiting, diarrhea Genitourinary: Reports: other - no negro Neurologic: Reports: weakness, other - lethargic Psychiatric: Reports: other - na Skin: Denies: rash Endocrine: Reports: other - na Hematologic: Denies: bleeding Musculoskeletal: Reports: other - na Allergies: Coded Allergies: PENICILLINS (Unverified Allergy, Mild, 12/05/18) PHENYTOIN (Verified Allergy, Unknown, 10/17/18) Uncoded Allergies: PENICILLIN (Allergy, Mild, 11/17/18) Objective Vital Signs Last 24 Hour Vital Signs Date Time Temp Pulse Resp B/P (MAP) Pulse Ox O2 Delivery O2 Flow Rate FiO2 12/13/18 12:41 71 16 30 12/13/18 12:00 Mechanical Ventilator 12/13/18 12:00 40 12/13/18 11:00 75 16 126/60 (82) 100 12/13/18 11:00 72 16 30 12/13/18 10:00 73 16 131/57 (81) 100 12/13/18 09:01 73 16 30 12/13/18 09:00 97.6 73 16 128/58 (81) 100 12/13/18 08:00 75 12/13/18 08:00 73 16 118/51 (73) 100 12/13/18 08:00 40 12/13/18 08:00 Mechanical Ventilator 12/13/18 07:00 72 16 131/59 (83) 100 12/13/18 07:00 71 16 30 12/13/18 06:00 72 16 130/65 (86) 100 12/13/18 05:05 72 16 30 30 12/13/18 05:00 71 16 131/65 (87) 100 12/13/18 04:00 40 12/13/18 04:00 Mechanical Ventilator 12/13/18 04:00 98.0 74 17 126/54 (78) 97 12/13/18 04:00 75 12/13/18 03:09 74 16 30 40 12/13/18 03:00 73 16 123/52 (75) 100 12/13/18 02:00 75 16 115/47 (69) 100 12/13/18 01:00 76 16 111/47 (68) 100 12/13/18 00:36 75 16 30 40 12/13/18 00:00 76 16 131/57 (81) 100 12/13/18 00:00 75 12/13/18 00:00 Mechanical Ventilator 12/12/18 23:00 76 16 117/43 (67) 100 12/12/18 22:32 77 16 30 40 12/12/18 22:00 77 16 124/44 (70) 100 12/12/18 21:00 76 16 128/46 (73) 100 12/12/18 20:42 76 16 40 40 12/12/18 20:00 75 12/12/18 20:00 Mechanical Ventilator 12/12/18 20:00 98.2 76 16 115/44 (67) 100 12/12/18 20:00 40 12/12/18 19:26 77 16 40 40 12/12/18 19:00 76 16 128/52 (77) 100 12/12/18 18:05 98.6 12/12/18 18:00 76 16 108/31 (56) 100 12/12/18 17:03 79 16 40 12/12/18 17:00 78 16 118/47 (70) 100 12/12/18 16:00 98.6 74 16 112/38 (62) 100 12/12/18 16:00 Mechanical Ventilator 12/12/18 16:00 78 18 119/55 (76) 100 12/12/18 16:00 77 12/12/18 16:00 40 12/12/18 15:00 76 16 116/42 (66) 100 12/12/18 14:30 70 18 40 12/12/18 14:00 74 16 112/38 (62) 100 Height (Feet): 5 Height (Inches): 4.00 Weight (Pounds): 125 General Appearance: other - on vent, no pressors HEENT: normocephalic, atraumatic, anicteric, no JVD, other - on vent, oral - intubated Respiratory/Chest: crackles/rales, rhonchi - bilaterally Cardiovascular: normal rate, regular rhythm, no gallop/murmur Abdomen: normal bowel sounds, soft, non tender, no organomegaly, non distended Genitourinary: other - no negro Extremities: other - bilateral leg amputation Skin: no rash Neurologic/Psychiatric: other - lethargic, weak, on vent Lymphatic: no neck adenopathy Musculoskeletal: other - bilateral leg amputaion Objective Chest x-ray - 12/07/18 - Comparison: 12/05/2018 Findings: Interim placement of a nasogastric tube, tip projecting at the level gastric fundus, proximal port probably beyond the gastroesophageal junction. Bilateral interstitial and airspace opacities appear similar to the previous study. Right arm and innominate venous stents are again demonstrated. MRI - right ankle - Impression: Marrow edema, suspicious for osteomyelitis, involving the posterior calcaneus, talus, middle and lateral cuneiforms Multiple fluid collections versus very edematous phlegmon, as described. These could represent abscesses Evidence of heel ulceration and marked thinning of the skin, consistent with stated clinical history of ulceration and necrotic wound Chest x-ray - 12/09/18 - COMPARISON: Chest x-ray dated 12/07/18 FINDINGS: Lungs: No significant interval change of bilateral interstitial and airspace opacities. Pleural space: Unremarkable. The costophrenic angles are sharp. No visible pneumothorax. Heart: Unremarkable. No cardiomegaly. Mediastinum: Unremarkable. Bones/joints: Degenerative changes throughout the visualized spine and shoulder joints. Vasculature: Unchanged positioning of the right arm and innominate vein stents. Atherosclerotic calcifications within the aortic arch. Tubes, lines and devices: Stable positioning of the NG tube. Telemetry leads overlie the thorax. IMPRESSION: No significant interval change of bilateral interstitial and airspace opacities. Chest x-ray - 12/11/18 - Procedure: XRAY Chest x-ray Comparison: 12/09/2018 A single view chest radiograph was obtained. Findings: Endotracheal tube is just above the akhil in good position. Patchy interstitial densities demonstrated. NG tube noted. SVC stent and other stents in the right upper arm demonstrated. Heart is enlarged. Bones are osteopenic. Chest x-ray - 12/13/18 - IMPRESSION: A single view chest radiograph was obtained. Findings: Slightly heterogeneous interstitial disease noted probably on the basis of heart failure. Correlate clinically. Tubes and lines are stable. IMPRESSION: Suspected mild CHF/interstitial edema. Microbiology Date/Time Source Procedure Growth Status 12/05/18 01:43 Blood Blood Culture - Final NO GROWTH AFTER 5 DAYS Complete 12/05/18 15:00 Sputum Gram Stain - Final Complete 12/05/18 15:00 Sputum Culture - Final Staphylococcus Aureus - Mrsa Cynthia Albicans Complete 12/09/18 12:30 Stool Clostridium difficile Toxin Assay - Final Complete 12/05/18 11:30 Urine,Clean Catch Urine Culture - Final Escherichia Coli - Esbl Complete 12/04/18 20:55 Rectum VRE Culture - Final Enterococcus Faecium - Vre Complete Laboratory Tests Test 12/12/18 16:00 12/12/18 19:50 12/13/18 02:00 12/13/18 05:00 Troponin I 0.636 ng/mL (0.000-0.056) 0.582 ng/mL (0.000-0.056) 0.601 ng/mL (0.000-0.056) White Blood Count 24.2 K/UL (4.8-10.8) *H Red Blood Count 2.88 M/UL (4.70-6.10) L Hemoglobin 9.4 G/DL (14.2-18.0) L Hematocrit 28.0 % (42.0-52.0) L Mean Corpuscular Volume 97 FL (80-99) Mean Corpuscular Hemoglobin 32.6 PG (27.0-31.0) H Mean Corpuscular Hemoglobin Concent 33.5 G/DL (32.0-36.0) Red Cell Distribution Width 17.9 % (11.6-14.8) H Platelet Count 108 K/UL (150-450) L Mean Platelet Volume 9.3 FL (6.5-10.1) Neutrophils (%) (Auto) % (45.0-75.0) Lymphocytes (%) (Auto) % (20.0-45.0) Monocytes (%) (Auto) % (1.0-10.0) Eosinophils (%) (Auto) % (0.0-3.0) Basophils (%) (Auto) % (0.0-2.0) Differential Total Cells Counted 100 Neutrophils % (Manual) 91 % (45-75) H Lymphocytes % (Manual) 4 % (20-45) L Monocytes % (Manual) 5 % (1-10) Eosinophils % (Manual) 0 % (0-3) Basophils % (Manual) 0 % (0-2) Band Neutrophils 0 % (0-8) Platelet Estimate Decreased L Platelet Morphology Normal Anisocytosis 1+ Macrocytosis 1+ Target Cells 1+ Sodium Level 132 MMOL/L (136-145) L Potassium Level 3.9 MMOL/L (3.5-5.1) Chloride Level 98 MMOL/L (98-107) Carbon Dioxide Level 19 MMOL/L (21-32) L Anion Gap 15 mmol/L (5-15) Blood Urea Nitrogen 81 mg/dL (7-18) H Creatinine 4.1 MG/DL (0.55-1.30) H Estimat Glomerular Filtration Rate 14.7 mL/min (>60) Glucose Level 112 MG/DL (74-106) H Calcium Level 8.6 MG/DL (8.5-10.1) Phosphorus Level 3.3 MG/DL (2.5-4.9) Magnesium Level 1.9 MG/DL (1.8-2.4) Total Bilirubin 2.7 MG/DL (0.2-1.0) H Direct Bilirubin 1.9 MG/DL (0.0-0.3) H Aspartate Amino Transf (AST/SGOT) 34 U/L (15-37) Alanine Aminotransferase (ALT/SGPT) 8 U/L (12-78) L Alkaline Phosphatase 234 U/L (46-116) H Pro-B-Type Natriuretic Peptide > 83600 pg/mL (0-125) H Total Protein 6.4 G/DL (6.4-8.2) Albumin 1.5 G/DL (3.4-5.0) L Globulin 4.9 g/dL Albumin/Globulin Ratio 0.3 (1.0-2.7) L Random Vancomycin Level 27.0 ug/mL Test 12/13/18 07:55 12/13/18 08:45 Troponin I 0.568 ng/mL (0.000-0.056) Arterial Blood pH 7.479 (7.350-7.450) Arterial Blood Partial Pressure CO2 28.4 mmHg (35.0-45.0) L Arterial Blood Partial Pressure O2 68.7 mmHg (75.0-100.0) L Arterial Blood HCO3 20.6 mmol/L (22.0-26.0) L Arterial Blood Oxygen Saturation 93.8 % (95-100) L Arterial Blood Base Excess -1.9 (-2-2) Jose Test Positive Current Medications Medications (Trade) Dose Ordered Sig/Ronald Route PRN Reason Start Time Stop Time Status Last Admin Dose Admin Dextrose (Dextrose 50%) 25 ml Q30M PRN IV Hypoglycemia 12/11/18 02:45 01/03/19 22:44 12/11/18 06:23 Dextrose (Dextrose 50%) 50 ml Q30M PRN IV Hypoglycemia 12/11/18 02:45 01/03/19 22:44 12/11/18 18:45 Docusate Sodium (Colace) 200 mg DAILY NG 12/11/18 09:00 01/10/19 08:59 12/13/18 08:30 Hydromorphone HCl (Dilaudid) 0.5 mg Q4H PRN IVP For Pain 12/12/18 11:45 12/19/18 11:44 12/12/18 17:35 Lansoprazole (Prevacid) 30 mg BID NG 12/11/18 18:00 01/08/19 08:59 12/13/18 08:30 Lorazepam (Ativan 2mg/ml 1ml) 2 mg Q4H PRN IV For Anxiety 12/11/18 09:00 12/18/18 08:59 Meropenem 500 mg/ Sodium Chloride 55 ml @ 110 mls/hr Q24H IVPB 12/12/18 21:00 12/15/18 20:59 12/12/18 21:05 Metoclopramide HCl (Reglan) 5 mg Q8H PRN IVP Nausea & Vomiting 12/11/18 09:00 01/10/19 08:59 Morphine Sulfate (Morphine Sulfate) 4 mg Q4H PRN IVP SEVERE BREAKTHROUGH PAIN 12/11/18 09:00 12/18/18 08:59 Povidone Iodine (Betadine María) 1 applic QHS TOPIC 12/11/18 21:00 01/05/19 20:59 12/12/18 21:05 Pyridoxine HCl (Vitamin B6) 25 mg DAILY NG 12/11/18 09:00 01/07/19 08:59 12/13/18 08:30 Sevelamer Carbonate (Renvela) 800 mg THREE TIMES A DAY NG 12/11/18 09:00 01/07/19 08:59 12/13/18 08:29 Anshu Munugia MD Dec 13, 2018 13:31
--- NOTE | 2018-12-13 13:33 | Consultation ---
History of Present Illness General Date patient seen: Dec 12, 2018 Time patient seen: 13:32 Chief Complaint: Generalized Weakness Reason for Consultation: R Ankle infection Present Illness HPI 68 year old male with multiple medical problems: DM, ESRD, CHF, Left BKA, PVD, pressure ulcers, UTI, anemia, hypertension, COPD presents with sob, UTI. Cardiology consulted for elevated troponin, Planning on having a right BKA for osteomyelitis Allergies: Coded Allergies: PENICILLINS (Unverified Allergy, Mild, 12/05/18) PHENYTOIN (Verified Allergy, Unknown, 10/17/18) Uncoded Allergies: PENICILLIN (Allergy, Mild, 11/17/18) Medication History Scheduled Amlodipine Besylate* (Amlodipine Besylate*), 10 MG ORAL DAILY, (Reported) Aspirin Ec* (Aspirin Ec*), 81 MG ORAL DAILY, (Reported) Atenolol* (Tenormin*), 50 MG ORAL TWICE A DAY, (Reported) Docusate Sodium* (Docusate Sodium*), 200 MG ORAL DAILY, (Reported) Duloxetine (Cymbalta), 20 MG ORAL DAILY, (Reported) Levofloxacin* (Levaquin*), 250 MG ORAL DAILY Metronidazole* (Flagyl*), 500 MG ORAL EVERY 8 HOURS Pyridoxine Hcl* (Vitamin B-6*), 25 MG ORAL DAILY, (Reported) Sevelamer Carbonate* (Renvela*), 800 MG ORAL THREE TIMES A DAY, (Reported) Vitamin B Cmplx/Vit C/Folic AC (Nephro-Trent Tablet), 1 TAB ORAL DAILY, (Reported ) Scheduled PRN Hydrocodone Bit/Acetaminophen 5-325* ([place] 5-325*), 1 TAB ORAL Q4H PRN for For Pain, (Reported) Tramadol Hcl* (Ultram*), 50 MG ORAL Q6H PRN for For Pain, (Reported) Miscellaneous Medications Insulin Lispro (Humalog), 0 SUBQ, (Reported) Linagliptin (Tradjenta), 5 MG PO, (Reported) Methoxy Peg-Epoetin Beta (Mircera), 100 MCG IJ, (Reported) [lipovitan], (Reported) Patient History Healthcare decision maker N Resuscitation status Full Code Advanced Directive on File Review of Systems Constitutional: Reports: no symptoms Eye: Reports: no symptoms ENT: Reports: no symptoms Respiratory: Reports: orthopnea, shortness of breath, MARKS Cardiovascular: Reports: no symptoms Gastrointestinal: Reports: no symptoms Genitourinary: Reports: no symptoms Musculoskeletal: Reports: joint pain Skin: Reports: no symptoms Psychiatric: Reports: no symptoms Neurological: Reports: no symptoms Endocrine: Reports: no symptoms Hematologic/Lymphatic: Reports: no symptoms Physical Exam General Appearance: no apparent distress Lines, tubes and drains: peripheral HEENT: normocephalic, atraumatic Neck: non-tender, normal alignment, supple, normal inspection Respiratory/Chest: chest wall non-tender, lungs clear Cardiovascular/Chest: normal rate, regular rhythm Abdomen: normal bowel sounds, non tender, soft, no organomegaly Extremities: normal range of motion, non-tender Neurologic: grab hooker II-XII grossly normal Last 24 Hour Vital Signs Date Time Temp Pulse Resp B/P (MAP) Pulse Ox O2 Delivery O2 Flow Rate FiO2 12/13/18 12:41 71 16 30 12/13/18 12:00 Mechanical Ventilator 12/13/18 12:00 40 12/13/18 11:00 75 16 126/60 (82) 100 12/13/18 11:00 72 16 30 12/13/18 10:00 73 16 131/57 (81) 100 12/13/18 09:01 73 16 30 12/13/18 09:00 97.6 73 16 128/58 (81) 100 12/13/18 08:00 75 12/13/18 08:00 73 16 118/51 (73) 100 12/13/18 08:00 40 12/13/18 08:00 Mechanical Ventilator 12/13/18 07:00 72 16 131/59 (83) 100 12/13/18 07:00 71 16 30 12/13/18 06:00 72 16 130/65 (86) 100 12/13/18 05:05 72 16 30 30 12/13/18 05:00 71 16 131/65 (87) 100 12/13/18 04:00 40 12/13/18 04:00 Mechanical Ventilator 12/13/18 04:00 98.0 74 17 126/54 (78) 97 12/13/18 04:00 75 12/13/18 03:09 74 16 30 40 12/13/18 03:00 73 16 123/52 (75) 100 12/13/18 02:00 75 16 115/47 (69) 100 12/13/18 01:00 76 16 111/47 (68) 100 12/13/18 00:36 75 16 30 40 12/13/18 00:00 76 16 131/57 (81) 100 12/13/18 00:00 75 12/13/18 00:00 Mechanical Ventilator 12/12/18 23:00 76 16 117/43 (67) 100 12/12/18 22:32 77 16 30 40 12/12/18 22:00 77 16 124/44 (70) 100 12/12/18 21:00 76 16 128/46 (73) 100 12/12/18 20:42 76 16 40 40 12/12/18 20:00 75 12/12/18 20:00 Mechanical Ventilator 12/12/18 20:00 98.2 76 16 115/44 (67) 100 12/12/18 20:00 40 12/12/18 19:26 77 16 40 40 12/12/18 19:00 76 16 128/52 (77) 100 12/12/18 18:05 98.6 12/12/18 18:00 76 16 108/31 (56) 100 12/12/18 17:03 79 16 40 12/12/18 17:00 78 16 118/47 (70) 100 12/12/18 16:00 98.6 74 16 112/38 (62) 100 12/12/18 16:00 Mechanical Ventilator 12/12/18 16:00 78 18 119/55 (76) 100 12/12/18 16:00 77 12/12/18 16:00 40 12/12/18 15:00 76 16 116/42 (66) 100 12/12/18 14:30 70 18 40 12/12/18 14:00 74 16 112/38 (62) 100 Intake and Output 12/12/18 12/13/18 18:59 06:59 Intake Total 565 ml 630 ml Output Total 0 ml 0 ml Balance 565 ml 630 ml Free Water 100 ml Tube Feeding 440 ml 480 ml Other 125 ml 50 ml Output Urine Total 0 ml 0 ml # Bowel Movements 2 2 Laboratory Tests Test 12/12/18 16:00 12/12/18 19:50 12/13/18 02:00 12/13/18 05:00 Troponin I 0.636 ng/mL (0.000-0.056) 0.582 ng/mL (0.000-0.056) 0.601 ng/mL (0.000-0.056) White Blood Count 24.2 K/UL (4.8-10.8) *H Red Blood Count 2.88 M/UL (4.70-6.10) L Hemoglobin 9.4 G/DL (14.2-18.0) L Hematocrit 28.0 % (42.0-52.0) L Mean Corpuscular Volume 97 FL (80-99) Mean Corpuscular Hemoglobin 32.6 PG (27.0-31.0) H Mean Corpuscular Hemoglobin Concent 33.5 G/DL (32.0-36.0) Red Cell Distribution Width 17.9 % (11.6-14.8) H Platelet Count 108 K/UL (150-450) L Mean Platelet Volume 9.3 FL (6.5-10.1) Neutrophils (%) (Auto) % (45.0-75.0) Lymphocytes (%) (Auto) % (20.0-45.0) Monocytes (%) (Auto) % (1.0-10.0) Eosinophils (%) (Auto) % (0.0-3.0) Basophils (%) (Auto) % (0.0-2.0) Differential Total Cells Counted 100 Neutrophils % (Manual) 91 % (45-75) H Lymphocytes % (Manual) 4 % (20-45) L Monocytes % (Manual) 5 % (1-10) Eosinophils % (Manual) 0 % (0-3) Basophils % (Manual) 0 % (0-2) Band Neutrophils 0 % (0-8) Platelet Estimate Decreased L Platelet Morphology Normal Anisocytosis 1+ Macrocytosis 1+ Target Cells 1+ Sodium Level 132 MMOL/L (136-145) L Potassium Level 3.9 MMOL/L (3.5-5.1) Chloride Level 98 MMOL/L (98-107) Carbon Dioxide Level 19 MMOL/L (21-32) L Anion Gap 15 mmol/L (5-15) Blood Urea Nitrogen 81 mg/dL (7-18) H Creatinine 4.1 MG/DL (0.55-1.30) H Estimat Glomerular Filtration Rate 14.7 mL/min (>60) Glucose Level 112 MG/DL (74-106) H Calcium Level 8.6 MG/DL (8.5-10.1) Phosphorus Level 3.3 MG/DL (2.5-4.9) Magnesium Level 1.9 MG/DL (1.8-2.4) Total Bilirubin 2.7 MG/DL (0.2-1.0) H Direct Bilirubin 1.9 MG/DL (0.0-0.3) H Aspartate Amino Transf (AST/SGOT) 34 U/L (15-37) Alanine Aminotransferase (ALT/SGPT) 8 U/L (12-78) L Alkaline Phosphatase 234 U/L (46-116) H Pro-B-Type Natriuretic Peptide > 85995 pg/mL (0-125) H Total Protein 6.4 G/DL (6.4-8.2) Albumin 1.5 G/DL (3.4-5.0) L Globulin 4.9 g/dL Albumin/Globulin Ratio 0.3 (1.0-2.7) L Random Vancomycin Level 27.0 ug/mL Test 12/13/18 07:55 12/13/18 08:45 Troponin I 0.568 ng/mL (0.000-0.056) Arterial Blood pH 7.479 (7.350-7.450) Arterial Blood Partial Pressure CO2 28.4 mmHg (35.0-45.0) L Arterial Blood Partial Pressure O2 68.7 mmHg (75.0-100.0) L Arterial Blood HCO3 20.6 mmol/L (22.0-26.0) L Arterial Blood Oxygen Saturation 93.8 % (95-100) L Arterial Blood Base Excess -1.9 (-2-2) Jose Test Positive Height (Feet): 5 Height (Inches): 4.00 Weight (Pounds): 125 Medications Current Medications Medications (Trade) Dose Ordered Sig/Ronald Route PRN Reason Start Time Stop Time Status Last Admin Dose Admin Dextrose (Dextrose 50%) 25 ml Q30M PRN IV Hypoglycemia 12/11/18 02:45 01/03/19 22:44 12/11/18 06:23 Dextrose (Dextrose 50%) 50 ml Q30M PRN IV Hypoglycemia 12/11/18 02:45 01/03/19 22:44 12/11/18 18:45 Docusate Sodium (Colace) 200 mg DAILY NG 12/11/18 09:00 01/10/19 08:59 12/13/18 08:30 Hydromorphone HCl (Dilaudid) 0.5 mg Q4H PRN IVP For Pain 12/12/18 11:45 12/19/18 11:44 12/12/18 17:35 Lansoprazole (Prevacid) 30 mg BID NG 12/11/18 18:00 01/08/19 08:59 12/13/18 08:30 Lorazepam (Ativan 2mg/ml 1ml) 2 mg Q4H PRN IV For Anxiety 12/11/18 09:00 12/18/18 08:59 Meropenem 500 mg/ Sodium Chloride 55 ml @ 110 mls/hr Q24H IVPB 12/12/18 21:00 12/15/18 20:59 12/12/18 21:05 Metoclopramide HCl (Reglan) 5 mg Q8H PRN IVP Nausea & Vomiting 12/11/18 09:00 01/10/19 08:59 Morphine Sulfate (Morphine Sulfate) 4 mg Q4H PRN IVP SEVERE BREAKTHROUGH PAIN 12/11/18 09:00 12/18/18 08:59 Povidone Iodine (Betadine Mraía) 1 applic QHS TOPIC 12/11/18 21:00 01/05/19 20:59 12/12/18 21:05 Pyridoxine HCl (Vitamin B6) 25 mg DAILY NG 12/11/18 09:00 01/07/19 08:59 12/13/18 08:30 Sevelamer Carbonate (Renvela) 800 mg THREE TIMES A DAY NG 12/11/18 09:00 01/07/19 08:59 12/13/18 08:29 Assessment/Plan Status: stable Assessment/Plan Assessment: DM ESRD BKA PVD Pressure ulcer ESBL UTI Anemia Hypertension CHF COPD G tube Elevated troponin/NSTEMI Plan: Troponin down trending, multifactorial: ESRD, infection, sepsis, demand ischemia Echocardiogram pending Patient hemodynamically stable otherwise Continue abx maintain HD Hold heparin Ok to proceed with low risk surgery right lower extremity amputation Keep hemoglobin >7 Kash Brantley MD Dec 13, 2018 13:33
--- NOTE | 2018-12-13 13:51 | NUR ---
Social Service Note SW continues to attempt to contact patient's family. Will continue to follow up.
--- NOTE | 2018-12-13 14:48 | NUR ---
NURSE NOTES: Flushed NGT with 175ml free water, no residual noted. Turned and repositioned.
--- NOTE | 2018-12-13 15:39 | General Progress Note ---
Assessment/Plan Assessment/Plan ASSESSMENT/RECS: # Leukocytosis/Elevated white blood cell count, unspecified likely related to underlying stress reaction, smoking, or underlying infection (especially if bandemia is noted) --> have reviewed peripheral smear and bandemia/neutrophilia noted --> esr and crp elevated on prior labs --> continue on meropenem and vancomycin started by ID team --> monitor for resolution 28k-->21k-->24-->21k-->24-->25-->24k --> flow cytometry reviewed and is negative for abnormal clonal population of cells # Anemia of chronic disease due to underlying chronic medical issues, multifactorial --> Anemia workup has been reviewed, Ferritin 1678 --> No evidence of hemolysis is noted, peripheral smear has been reviewed. --> Hgb goal >7. Transfuse prn. --> Epogen or iron at this time is not particularly indicated --> Medications have been reviewed # Coagulopathy with elevated inr --> consider repeat in one week --> obtain a mixing study if pTT rises any further # Sepsis, elevated white count --> on meropenem and vancomycin, as per id --> appreciate ID recs # End-stage renal disease on hemodialysis --> appreciate nephro recs --> hd as needed # R foot infection vs UTI vs PNA --> appreciate ID recs --> right AKA 12/11/18 # Acute hypercapnic respiratory failure --> intubated --> appreciate pulm recs # Intubated The timing of this note does not necessarily reflect the time of the patient was seen. Greatly appreciate consultation! Subjective Allergies: Coded Allergies: PENICILLINS (Unverified Allergy, Mild, 12/05/18) PHENYTOIN (Verified Allergy, Unknown, 10/17/18) Uncoded Allergies: PENICILLIN (Allergy, Mild, 11/17/18) Subjective 12/07: seen by bedside, leukocytosis trending up at 24, on abx, hgb 7.6, no events 12/09: Pt is resting in bed, wbc remains elevated, 12/10: on abx, wbc is better, anemia panel reviewed, getting hd 12/11: Pt is s/p code blue, pt intubated and transferred to ICU, right AKA schedule today. wbc elevated at 24 12/12: seen by bedside, appears weak and lethargic , failed weaning, wbc elevated. 12/13: remains intubated, cards consulted, on vent, not alert Objective Last 24 Hour Vital Signs Date Time Temp Pulse Resp B/P (MAP) Pulse Ox O2 Delivery O2 Flow Rate FiO2 12/13/18 15:26 68 16 30 12/13/18 14:00 71 16 130/63 (85) 100 12/13/18 13:00 72 16 120/59 (79) 99 12/13/18 12:41 71 16 30 12/13/18 12:00 97.8 71 16 128/57 (80) 98 12/13/18 12:00 Mechanical Ventilator 12/13/18 12:00 71 12/13/18 12:00 40 12/13/18 11:00 75 16 126/60 (82) 100 12/13/18 11:00 72 16 30 12/13/18 10:00 73 16 131/57 (81) 100 12/13/18 09:01 73 16 30 12/13/18 09:00 97.6 73 16 128/58 (81) 100 12/13/18 08:00 75 12/13/18 08:00 73 16 118/51 (73) 100 12/13/18 08:00 40 12/13/18 08:00 Mechanical Ventilator 12/13/18 07:00 72 16 131/59 (83) 100 12/13/18 07:00 71 16 30 12/13/18 06:00 72 16 130/65 (86) 100 12/13/18 05:05 72 16 30 30 12/13/18 05:00 71 16 131/65 (87) 100 12/13/18 04:00 40 12/13/18 04:00 Mechanical Ventilator 12/13/18 04:00 98.0 74 17 126/54 (78) 97 12/13/18 04:00 75 12/13/18 03:09 74 16 30 40 12/13/18 03:00 73 16 123/52 (75) 100 12/13/18 02:00 75 16 115/47 (69) 100 12/13/18 01:00 76 16 111/47 (68) 100 12/13/18 00:36 75 16 30 40 12/13/18 00:00 76 16 131/57 (81) 100 12/13/18 00:00 75 12/13/18 00:00 Mechanical Ventilator 12/12/18 23:00 76 16 117/43 (67) 100 12/12/18 22:32 77 16 30 40 12/12/18 22:00 77 16 124/44 (70) 100 12/12/18 21:00 76 16 128/46 (73) 100 12/12/18 20:42 76 16 40 40 12/12/18 20:00 75 12/12/18 20:00 Mechanical Ventilator 12/12/18 20:00 98.2 76 16 115/44 (67) 100 12/12/18 20:00 40 12/12/18 19:26 77 16 40 40 12/12/18 19:00 76 16 128/52 (77) 100 12/12/18 18:05 98.6 12/12/18 18:00 76 16 108/31 (56) 100 12/12/18 17:03 79 16 40 12/12/18 17:00 78 16 118/47 (70) 100 12/12/18 16:00 98.6 74 16 112/38 (62) 100 12/12/18 16:00 Mechanical Ventilator 12/12/18 16:00 78 18 119/55 (76) 100 12/12/18 16:00 77 12/12/18 16:00 40 Intake and Output 12/12/18 12/13/18 18:59 06:59 Intake Total 565 ml 630 ml Output Total 0 ml 0 ml Balance 565 ml 630 ml Free Water 100 ml Tube Feeding 440 ml 480 ml Other 125 ml 50 ml Output Urine Total 0 ml 0 ml # Bowel Movements 2 2 Laboratory Tests 12/12/18 16:00: Troponin I 0.636H 12/12/18 19:50: Troponin I 0.582H 12/13/18 02:00: Troponin I 0.601H 12/13/18 05:00: White Blood Count 24.2*H, Red Blood Count 2.88L, Hemoglobin 9.4L, Hematocrit 28.0L, Mean Corpuscular Volume 97, Mean Corpuscular Hemoglobin 32.6H, Mean Corpuscular Hemoglobin Concent 33.5, Red Cell Distribution Width 17.9H, Platelet Count 108L, Mean Platelet Volume 9.3, Neutrophils (%) (Auto) , Lymphocytes (%) (Auto) , Monocytes (%) (Auto) , Eosinophils (%) (Auto) , Basophils (%) (Auto) , Differential Total Cells Counted 100, Neutrophils % ( Manual) 91H, Lymphocytes % (Manual) 4L, Monocytes % (Manual) 5, Eosinophils % ( Manual) 0, Basophils % (Manual) 0, Band Neutrophils 0, Platelet Estimate DecreasedL, Platelet Morphology Normal, Anisocytosis 1+, Macrocytosis 1+, Target Cells 1+, Sodium Level 132L, Potassium Level 3.9, Chloride Level 98, Carbon Dioxide Level 19L, Anion Gap 15, Blood Urea Nitrogen 81H, Creatinine 4.1H , Estimat Glomerular Filtration Rate 14.7, Glucose Level 112H, Calcium Level 8.6 , Phosphorus Level 3.3, Magnesium Level 1.9, Total Bilirubin 2.7H, Direct Bilirubin 1.9H, Aspartate Amino Transf (AST/SGOT) 34, Alanine Aminotransferase ( ALT/SGPT) 8L, Alkaline Phosphatase 234H, Pro-B-Type Natriuretic Peptide > 61159B , Total Protein 6.4, Albumin 1.5L, Globulin 4.9, Albumin/Globulin Ratio 0.3L, Random Vancomycin Level 27.0 12/13/18 07:55: Troponin I 0.568H 12/13/18 08:45: Arterial Blood pH 7.479H, Arterial Blood Partial Pressure CO2 28.4L, Arterial Blood Partial Pressure O2 68.7L, Arterial Blood HCO3 20.6L, Arterial Blood Oxygen Saturation 93.8L, Arterial Blood Base Excess -1.9, Jose Test Positive Height (Feet): 5 Height (Inches): 4.00 Weight (Pounds): 125 Objective VITAL SIGNS: Reviewed saturation 100%, blood pressure 102/63 ++ intubated GENERAL: Alert and responsive No significant shortness of breath noted. HEAD AND NECK: Oral examination, no thrush. Neck is supple. No JVD. HEART: Regular. No gallop or murmur. ABDOMEN: Soft. Positive bowel sounds. Nontender. No organomegaly. LUNGS: Few bilateral rhonchi. No definite rales on exam. Decreased breath sounds, Intubated++ SKIN: No rash. Wounds were reviewed. Extremities: right AKA as well as L Vadim Sandhu MD Dec 13, 2018 15:39
--- NOTE | 2018-12-13 16:03 | NUR ---
NURSE NOTES: Called [facility] to confirm for HD tomorrow.
--- NOTE | 2018-12-13 18:48 | NUR ---
RESPIRATORY NOTE: Received pt on AC 16, 600VT, 30%, PEEP +5. Pt intubated w/ ETT 7.5 @ 22cm lipline, secured by anchorfast. Pt alert/awake, follows commands. B/S duyen. rhonchi/diminished, sxn minimal amounts of tahick, bass-yellow secretions w/ occasional red specks & clots. Vent plugged into red outlet, ambubag at bedside. Pt in no apparent distress at this time. Will continue to monitor pt.
--- NOTE | 2018-12-13 19:10 | NUR ---
NURSE NOTES: Report received from SONG Franco. Pt A/Ox2-3, Estonian speaking. case monitor shows SR w/1st degree AVB. Pt has an ETT size 7.[address] place @ 23 on lip. Ventilator settings: AC16, VT600 FiO2:40%, Peep: 5. Tolerating settings well. Shows no signs of cardiac or respiratory distress. Pt has an NGT located in R Nare with Nepro running @ 40 ml/hr. Accuchecks q6hr. See WCP for skin alterations. pt has a DEEPTI AV shunt, a LFA20g and a LH22g peripheral IV, patent and asymptomatic. Bed in lowest position, bed alarms placed, call light within reach. will continue to monitor and with patients plan of care.
[2018-12-13] MEDS: Betadine 4oz Bottle TOPIC SCH (20:33)
[2018-12-13] MEDS: Meropenem 500 MG in NS 55 ML IVPB SCH (20:33)
[2018-12-13] MEDS: Hydromorphone 0.5mg/0.5ml inj IVP PRN (20:55)
--- NOTE | 2018-12-13 21:00 | NUR ---
NURSE NOTES: Repositioned patient. Oral care done.
--- NOTE | 2018-12-13 21:15 | NUR ---
NURSE NOTES: Endorsement received from Baby for continuity of care. Patient awake and alert. No complaints of pain at this time. No shortness of breath. Right leg stump kept elevated. No bleeding noted. head of bed elevated. Bed locked and in low position.
--- NOTE | 2018-12-13 21:16 | NUR ---
NURSE NOTES: Endorsement received from SONG Armstrong
[2018-12-14] VITALS (23 sets, daily range): BP systolic 92–155; BP diastolic 34–67
--- NOTE | 2018-12-14 04:00 | NUR ---
[facility] Downtime: On 12/13/2018 From 12/13/2018 2200H to 12/14/18 0400H, The following electronic documentation will be located in the patient handwritten chart, Nursing Documentation Medication Administration Records
[2018-12-14 05:05] LABS: HEMATOCRIT 32.1 % (42.0-52.0); HEMOGLOBIN 10.6 G/DL (14.2-18.0); MEAN CORPUSCULAR VOLUME 96 FL (80-99); PLATELET COUNT 102 K/UL (150-450); RED BLOOD COUNT 3.36 M/UL (4.70-6.10); RED CELL DISTRIBUTION WIDTH 17.4 % (11.6-14.8)
[2018-12-14 05:27] LABS: WHITE BLOOD COUNT 23.8 K/UL (4.8-10.8)
[2018-12-14 05:45] LABS: ALANINE AMINOTRANSFERASE < 6 U/L (12-78); ALBUMIN 1.3 G/DL (3.4-5.0); ALBUMIN/GLOBULIN RATIO 0.2 (1.0-2.7); ALKALINE PHOSPHATASE 283 U/L (46-116); ANION GAP 14 mmol/L (5-15); ASPARTATE AMINO TRANSFERASE 32 U/L (15-37); BILIRUBIN,TOTAL 2.8 MG/DL (0.2-1.0); BLOOD UREA NITROGEN 97 mg/dL (7-18); CALCIUM 8.4 MG/DL (8.5-10.1); CARBON DIOXIDE 21 MMOL/L (21-32); CHLORIDE 99 MMOL/L (98-107); CREATININE 4.5 MG/DL (0.55-1.30); PHOSPHORUS 3.7 MG/DL (2.5-4.9); POTASSIUM 4.1 MMOL/L (3.5-5.1); SODIUM 134 MMOL/L (136-145)
--- NOTE | 2018-12-14 06:00 | NUR ---
NURSE NOTES: WBC 23.8, not informed due to result is trending down.
[2018-12-14] MEDS: Hydromorphone 0.5mg/0.5ml inj IVP PRN ×2 (06:28→18:14)
[2018-12-14 06:31] LABS: BILIRUBIN,DIRECT 2.1 MG/DL (0.0-0.3)
--- NOTE | 2018-12-14 07:00 | NUR ---
Received Patient on Vent RR 16, VT 600, FIO2 30%, PEEP +5. Patient intubated with a 7.5 ETT at 22cm at the lip. Patient alert and awake lying comfortably in bed. Breath sounds reveal diminished rhonchi. Alarms on and audible. Vent plugged into red outlet. Will continue to monitor patient throughout the day.
--- NOTE | 2018-12-14 07:08 | NUR ---
HAND-OFF: Report given to SONG Franco per SBAR.
--- NOTE | 2018-12-14 07:15 | NUR ---
NURSE NOTES: Received pt from SONG Bourgeois. pt is alert, nods for yes or no, able to follow commands. Orally intubated, ETT to vent, AC 16, TV 600, Fio2 40%, PEEP+5, SPO2 100%, RR 19. Rhonchi heard b/s. Denies pain at this time. abdomen slightly distended. NGT in right nare running Nepro@40ml/hr, no residual. HOB 35 degrees. s/p right AKA. patient also has an old left BKA. BLE elevated on pillow support. DEEPTI AV shunt noted with positive thrill and bruit. Patient is to have HD today. VSS. Sacral dressing clean and intact. Bed locked, alarmed and in lowest position. Will continue plan of care.
[2018-12-14] MEDS: Docusate 100mg/10ml Liq NG SCH (08:23)
[2018-12-14] MEDS: Renvela 800mg Pkt NG SCH ×3 (08:23→18:14)
[2018-12-14] MEDS: Pyridoxine 50mg tab NG SCH (08:23)
--- NOTE | 2018-12-14 08:29 | NUR ---
RADIOLOGY DEPT., CHEST X-RAY DONE.-P.DYE
--- NOTE | 2018-12-14 08:55 | NUR ---
Attempted to wean at 0855. Placed Patient on PS +8 PEEP +5 FIO2 30%. Patient showed lack of effort. VT <100mL, Ve <3, and saturations began to fall to <90%. Placed Patient back onto previous settings.
--- NOTE | 2018-12-14 10:00 | Pulmonolgy Critical Care Note ---
Critical Care - Asmt/Plan Problems: (1) Acute respiratory failure (2) Sepsis (3) End stage liver disease (4) ESRF (end stage renal failure) (5) Ascites (6) Diabetes mellitus (7) S/P BKA (below knee amputation) Respiratory: monitor respiratory rate, adjust FIO2, CXR, other - failed weaning again Cardiac: continue to monitor HR/BP Renal: F/U I&O Infectious Disease: check cultures, continue antibiotics, other - send sputum again Gastrointestinal: continue feedings/current rate, other - paracentesis ordered. Endocrine: monitor blood sugar Hematologic: monitor H/H Neurologic: PRN Ativan, PRN Morphine Prophylaxis: Protonix Disposition: keep in ICU Time Spent (Minutes): 30 Critical Care - Objective Last 24 Hour Vital Signs Date Time Temp Pulse Resp B/P (MAP) Pulse Ox O2 Delivery O2 Flow Rate FiO2 12/14/18 09:00 30 12/14/18 08:54 70 16 30 12/14/18 08:00 30 12/14/18 08:00 Mechanical Ventilator 12/14/18 07:08 74 16 30 12/14/18 07:05 98.0 12/14/18 07:00 70 20 109/48 (68) 100 12/14/18 06:00 70 20 127/58 (81) 100 12/14/18 05:00 70 20 127/58 (81) 100 12/14/18 04:00 Mechanical Ventilator 12/14/18 04:00 71 12/14/18 04:00 98.0 69 19 128/49 (75) 100 12/14/18 04:00 30 12/14/18 03:00 68 22 123/48 (73) 100 12/14/18 02:00 68 26 110/39 (62) 100 12/14/18 01:00 69 26 105/47 (66) 100 12/14/18 00:00 98.0 69 31 112/46 (68) 100 12/14/18 00:00 69 12/14/18 00:00 Mechanical Ventilator 12/13/18 23:00 69 17 110/43 (65) 100 12/13/18 22:00 67 25 123/46 (71) 100 12/13/18 21:10 67 16 30 12/13/18 21:00 68 23 105/38 (60) 100 12/13/18 21:00 68 23 105/38 (60) 100 12/13/18 20:00 98.0 70 16 126/45 (72) 100 12/13/18 20:00 Mechanical Ventilator 12/13/18 20:00 30 12/13/18 20:00 70 12/13/18 20:00 98.1 70 16 126/45 (72) 100 12/13/18 19:00 68 16 119/50 (73) 100 12/13/18 18:46 68 17 30 12/13/18 18:00 69 16 124/53 (76) 100 12/13/18 17:18 72 17 30 12/13/18 17:00 72 16 127/60 (82) 100 12/13/18 16:00 40 12/13/18 16:00 71 12/13/18 16:00 98.2 69 16 124/56 (78) 100 12/13/18 16:00 Mechanical Ventilator 12/13/18 15:26 68 16 30 12/13/18 15:00 70 16 141/64 (89) 100 12/13/18 14:00 71 16 130/63 (85) 100 12/13/18 13:00 72 16 120/59 (79) 99 12/13/18 12:41 71 16 30 12/13/18 12:00 97.8 71 16 128/57 (80) 98 12/13/18 12:00 Mechanical Ventilator 12/13/18 12:00 71 12/13/18 12:00 40 12/13/18 11:00 75 16 126/60 (82) 100 12/13/18 11:00 72 16 30 12/13/18 10:00 73 16 131/57 (81) 100 Status: awake Condition: critical HEENT: atraumatic Heart: regular Abdomen: non-tender, feeding tube Extremities: edema Accucheck: 92 Critical Care - Subjective ROS Limited/Unobtainable: Yes Condition: critical EKG Rhythm: Sinus Rhythm FI02: 30 Vent Support Breath Rate: 16 Vent Support Mode: AC Vent Tidal Volume: 600 Sputum Amount: Scant PEEP: 5.0 PIP: 33 Tube Feeding Amount: 40 I&O: Intake and Output 12/13/18 12/14/18 19:00 07:00 Intake Total 830 ml 580 ml Output Total 0 ml 0 ml Balance 830 ml 580 ml Free Water 350 ml 100 ml Tube Feeding 480 ml 480 ml Output Urine Total 0 ml 0 ml # Bowel Movements 2 2 CXR: increasing infiltrate at right side, ET in good position ET-Tube: 7.5 ET Position: 22 Labs: Laboratory Tests Test 12/14/18 03:40 White Blood Count 23.8 K/UL (4.8-10.8) *H Red Blood Count 3.36 M/UL (4.70-6.10) L Hemoglobin 10.6 G/DL (14.2-18.0) L Hematocrit 32.1 % (42.0-52.0) L Mean Corpuscular Volume 96 FL (80-99) Mean Corpuscular Hemoglobin 31.6 PG (27.0-31.0) H Mean Corpuscular Hemoglobin Concent 33.1 G/DL (32.0-36.0) Red Cell Distribution Width 17.4 % (11.6-14.8) H Platelet Count 102 K/UL (150-450) L Mean Platelet Volume 11.7 FL (6.5-10.1) H Neutrophils (%) (Auto) % (45.0-75.0) Lymphocytes (%) (Auto) % (20.0-45.0) Monocytes (%) (Auto) % (1.0-10.0) Eosinophils (%) (Auto) % (0.0-3.0) Basophils (%) (Auto) % (0.0-2.0) Sodium Level 134 MMOL/L (136-145) L Potassium Level 4.1 MMOL/L (3.5-5.1) Chloride Level 99 MMOL/L (98-107) Carbon Dioxide Level 21 MMOL/L (21-32) Anion Gap 14 mmol/L (5-15) Blood Urea Nitrogen 97 mg/dL (7-18) H Creatinine 4.5 MG/DL (0.55-1.30) H Estimat Glomerular Filtration Rate 13.2 mL/min (>60) Glucose Level 57 MG/DL (74-106) L Uric Acid 7.1 MG/DL (2.6-7.2) Calcium Level 8.4 MG/DL (8.5-10.1) L Phosphorus Level 3.7 MG/DL (2.5-4.9) Magnesium Level 2.0 MG/DL (1.8-2.4) Total Bilirubin 2.8 MG/DL (0.2-1.0) H Direct Bilirubin 2.1 MG/DL (0.0-0.3) H Aspartate Amino Transf (AST/SGOT) 32 U/L (15-37) Alanine Aminotransferase (ALT/SGPT) < 6 U/L (12-78) L Alkaline Phosphatase 283 U/L (46-116) H Pro-B-Type Natriuretic Peptide > 77502 pg/mL (0-125) H Total Protein 6.5 G/DL (6.4-8.2) Albumin 1.3 G/DL (3.4-5.0) L Globulin 5.2 g/dL Albumin/Globulin Ratio 0.2 (1.0-2.7) L Tamia Lerma MD Dec 14, 2018 10:00
--- NOTE | 2018-12-14 10:30 | Diagnostic Imaging Report ---
Indication: Shortness of breath Technique: One view of the chest Comparison: 12/13/2018 Findings: Stable positions of endotracheal and nasogastric tubes. Bilateral interstitial edema and likely right perihilar scarring are again demonstrated and appear unchanged. The heart size is upper limits normal. Impression: Unchanged, over one day, findings as above.
--- NOTE | 2018-12-14 10:31 | NUR ---
NURSE NOTES: Confirmed HD RN will come before noon today. Scheduled paracentesis to be done after HD. US tech notified.
--- NOTE | 2018-12-14 11:45 | NUR ---
NURSE NOTES: HD began. HD RN at bedside. consent for US paracentesis obtained by 2 MD's and placed in chart.
--- NOTE | 2018-12-14 12:48 | General Progress Note ---
Assessment/Plan Problem List: (1) S/P BKA (below knee amputation) ICD Codes: Z89.519 - Acquired absence of unspecified leg below knee SNOMED: 21912160, 331483587 (2) Hx of BKA ICD Codes: Z89.519 - Acquired absence of unspecified leg below knee SNOMED: 738318454, 688777118 (3) Severe sepsis ICD Codes: A41.9 - Sepsis, unspecified organism; R65.20 - Severe sepsis without septic shock SNOMED: 72514009 (4) Diabetes mellitus ICD Codes: E11.9 - Type 2 diabetes mellitus without complications SNOMED: 28358066 (5) ESRF (end stage renal failure) ICD Codes: N18.6 - End stage renal disease SNOMED: 71059807 (6) Leukocytosis ICD Codes: D72.829 - Elevated white blood cell count, unspecified SNOMED: 511741012, 224781335 (7) CHF (congestive heart failure) ICD Codes: I50.9 - Heart failure, unspecified SNOMED: 21004580 (8) Anemia ICD Codes: D64.9 - Anemia, unspecified SNOMED: 506601758 Assessment/Plan Elevated residuals Dysphasia G-tube Macrocytic anemia Diarrhea C. difficile, negative Occult blood stool positive Elevated LFTs KUB negative G-tube feedings, Reglan 5 mg ATC Monitor H&H, PRN transfusions PPI Trend LFTs, s/p amputation persistent leukocytosis>>> fu ID pending possible paracentesis pending HD for today Subjective ROS Limited/Unobtainable: No Allergies: Coded Allergies: PENICILLINS (Unverified Allergy, Mild, 12/05/18) PHENYTOIN (Verified Allergy, Unknown, 10/17/18) Uncoded Allergies: PENICILLIN (Allergy, Mild, 11/17/18) Subjective coded yesterday Objective Last 24 Hour Vital Signs Date Time Temp Pulse Resp B/P (MAP) Pulse Ox O2 Delivery O2 Flow Rate FiO2 12/14/18 12:00 Mechanical Ventilator 12/14/18 12:00 30 12/14/18 12:00 70 20 94/42 (59) 100 12/14/18 12:00 71 12/14/18 11:26 71 16 30 12/14/18 10:00 71 20 112/34 (60) 100 12/14/18 09:00 30 12/14/18 09:00 70 20 103/41 (61) 100 12/14/18 08:54 70 16 30 12/14/18 08:00 30 12/14/18 08:00 98.9 71 27 110/48 (68) 100 12/14/18 08:00 72 12/14/18 08:00 Mechanical Ventilator 12/14/18 07:08 74 16 30 12/14/18 07:05 98.0 12/14/18 07:00 70 20 109/48 (68) 100 12/14/18 06:00 70 20 127/58 (81) 100 12/14/18 05:00 70 20 127/58 (81) 100 12/14/18 04:00 Mechanical Ventilator 12/14/18 04:00 71 12/14/18 04:00 98.0 69 19 128/49 (75) 100 12/14/18 04:00 30 12/14/18 03:00 68 22 123/48 (73) 100 12/14/18 02:00 68 26 110/39 (62) 100 12/14/18 01:00 69 26 105/47 (66) 100 12/14/18 00:00 98.0 69 31 112/46 (68) 100 12/14/18 00:00 69 12/14/18 00:00 Mechanical Ventilator 12/13/18 23:00 69 17 110/43 (65) 100 12/13/18 22:00 67 25 123/46 (71) 100 12/13/18 21:10 67 16 30 12/13/18 21:00 68 23 105/38 (60) 100 12/13/18 21:00 68 23 105/38 (60) 100 12/13/18 20:00 98.0 70 16 126/45 (72) 100 12/13/18 20:00 Mechanical Ventilator 12/13/18 20:00 30 12/13/18 20:00 70 12/13/18 20:00 98.1 70 16 126/45 (72) 100 12/13/18 19:00 68 16 119/50 (73) 100 12/13/18 18:46 68 17 30 12/13/18 18:00 69 16 124/53 (76) 100 12/13/18 17:18 72 17 30 12/13/18 17:00 72 16 127/60 (82) 100 12/13/18 16:00 40 12/13/18 16:00 71 12/13/18 16:00 98.2 69 16 124/56 (78) 100 12/13/18 16:00 Mechanical Ventilator 12/13/18 15:26 68 16 30 12/13/18 15:00 70 16 141/64 (89) 100 12/13/18 14:00 71 16 130/63 (85) 100 12/13/18 13:00 72 16 120/59 (79) 99 Intake and Output 12/13/18 12/14/18 19:00 07:00 Intake Total 830 ml 580 ml Output Total 0 ml 0 ml Balance 830 ml 580 ml Free Water 350 ml 100 ml Tube Feeding 480 ml 480 ml Output Urine Total 0 ml 0 ml # Bowel Movements 2 2 Laboratory Tests 12/14/18 03:40: White Blood Count 23.8*H, Red Blood Count 3.36L, Hemoglobin 10.6L, Hematocrit 32.1L, Mean Corpuscular Volume 96, Mean Corpuscular Hemoglobin 31.6H, Mean Corpuscular Hemoglobin Concent 33.1, Red Cell Distribution Width 17.4H, Platelet Count 102L, Mean Platelet Volume 11.7H, Neutrophils (%) (Auto) , Lymphocytes (%) (Auto) , Monocytes (%) (Auto) , Eosinophils (%) (Auto) , Basophils (%) (Auto) , Differential Total Cells Counted 100, Neutrophils % ( Manual) 88H, Lymphocytes % (Manual) 5L, Monocytes % (Manual) 5, Eosinophils % ( Manual) 1, Basophils % (Manual) 1, Band Neutrophils 0, Platelet Estimate DecreasedL, Platelet Morphology Normal, Hypochromasia 1+, Anisocytosis 1+, Sodium Level 134L, Potassium Level 4.1, Chloride Level 99, Carbon Dioxide Level 21, Anion Gap 14, Blood Urea Nitrogen 97H, Creatinine 4.5H, Estimat Glomerular Filtration Rate 13.2, Glucose Level 57L, Uric Acid 7.1, Calcium Level 8.4L, Phosphorus Level 3.7, Magnesium Level 2.0, Total Bilirubin 2.8H, Direct Bilirubin 2.1H, Aspartate Amino Transf (AST/SGOT) 32, Alanine Aminotransferase ( ALT/SGPT) < 6L, Alkaline Phosphatase 283H, Pro-B-Type Natriuretic Peptide > 18264S, Total Protein 6.5, Albumin 1.3L, Globulin 5.2, Albumin/Globulin Ratio 0.2L 12/14/18 10:20: Arterial Blood pH 7.453H, Arterial Blood Partial Pressure CO2 30.0L, Arterial Blood Partial Pressure O2 74.7L, Arterial Blood HCO3 20.5L, Arterial Blood Oxygen Saturation 94.3L, Arterial Blood Base Excess -2.5L, Jose Test Positive Height (Feet): 5 Height (Inches): 4.00 Weight (Pounds): 125 General Appearance: lethargic EENT: normal ENT inspection Neck: supple Cardiovascular: normal rate Respiratory/Chest: decreased breath sounds Abdomen: normal bowel sounds, non tender, soft, distended Extremities: non-tender Antione Salomon MD Dec 14, 2018 12:48
--- NOTE | 2018-12-14 13:00 | NUR ---
NURSE NOTES: HD done, 250ml output noted. VSS.
--- NOTE | 2018-12-14 13:15 | NUR ---
Social Service Note SW spoke with [place] due to letter SEVERO completed for sister to obtain a temporary visa. Visa will be approved and sister should be able to travel within 24 hours. Will continue to monitor.
--- NOTE | 2018-12-14 13:27 | Nephrology Progress Note ---
Assessment/Plan Problem List: (1) ESRF (end stage renal failure) (2) Leukocytosis Assessment: sepsis (3) CHF (congestive heart failure) (4) Acute respiratory failure (5) Hyperbilirubinemia (6) Elevated troponin I level Assessment admitted with sepsis and shortness of breath (1) ESRD (end stage renal disease) right arm fistula (2) Possible Fluid overload, unspecified (3) h/o Bradycardia (4) Anemia (5) h/o Pleural effusion (6) Elevated troponin (7) Allergy Dialntin & PCN (8) Elevated Bili Plan intubated on Vent HD last 12/10 done, next 12/14 on Meropenem , Vanco- I will dose Vanco IV bolus as needed adjust BP meds 2D Echo 55% EjFx stop beta blockers for low HR hydralazin and procardia as needed reviewe CXR : Pneumonia per consultants Subjective ROS Limited/Unobtainable: Yes Objective Objective Last 24 Hour Vital Signs Date Time Temp Pulse Resp B/P (MAP) Pulse Ox O2 Delivery O2 Flow Rate FiO2 12/14/18 13:14 69 16 30 12/14/18 12:00 Mechanical Ventilator 12/14/18 12:00 30 12/14/18 12:00 70 20 94/42 (59) 100 12/14/18 12:00 71 12/14/18 11:26 71 16 30 12/14/18 10:00 71 20 112/34 (60) 100 12/14/18 09:00 30 12/14/18 09:00 70 20 103/41 (61) 100 12/14/18 08:54 70 16 30 12/14/18 08:00 30 12/14/18 08:00 98.9 71 27 110/48 (68) 100 12/14/18 08:00 72 12/14/18 08:00 Mechanical Ventilator 12/14/18 07:08 74 16 30 12/14/18 07:05 98.0 12/14/18 07:00 70 20 109/48 (68) 100 12/14/18 06:00 70 20 127/58 (81) 100 12/14/18 05:00 70 20 127/58 (81) 100 12/14/18 04:00 Mechanical Ventilator 12/14/18 04:00 71 12/14/18 04:00 98.0 69 19 128/49 (75) 100 12/14/18 04:00 30 12/14/18 03:00 68 22 123/48 (73) 100 12/14/18 02:00 68 26 110/39 (62) 100 12/14/18 01:00 69 26 105/47 (66) 100 12/14/18 00:00 98.0 69 31 112/46 (68) 100 12/14/18 00:00 69 12/14/18 00:00 Mechanical Ventilator 12/13/18 23:00 69 17 110/43 (65) 100 12/13/18 22:00 67 25 123/46 (71) 100 12/13/18 21:10 67 16 30 12/13/18 21:00 68 23 105/38 (60) 100 12/13/18 21:00 68 23 105/38 (60) 100 12/13/18 20:00 98.0 70 16 126/45 (72) 100 12/13/18 20:00 Mechanical Ventilator 12/13/18 20:00 30 12/13/18 20:00 70 12/13/18 20:00 98.1 70 16 126/45 (72) 100 12/13/18 19:00 68 16 119/50 (73) 100 12/13/18 18:46 68 17 30 12/13/18 18:00 69 16 124/53 (76) 100 12/13/18 17:18 72 17 30 12/13/18 17:00 72 16 127/60 (82) 100 12/13/18 16:00 40 12/13/18 16:00 71 12/13/18 16:00 98.2 69 16 124/56 (78) 100 12/13/18 16:00 Mechanical Ventilator 12/13/18 15:26 68 16 30 12/13/18 15:00 70 16 141/64 (89) 100 12/13/18 14:00 71 16 130/63 (85) 100 Intake and Output 12/13/18 12/14/18 19:00 07:00 Intake Total 830 ml 580 ml Output Total 0 ml 0 ml Balance 830 ml 580 ml Free Water 350 ml 100 ml Tube Feeding 480 ml 480 ml Output Urine Total 0 ml 0 ml # Bowel Movements 2 2 Laboratory Tests 12/14/18 03:40: White Blood Count 23.8*H, Red Blood Count 3.36L, Hemoglobin 10.6L, Hematocrit 32.1L, Mean Corpuscular Volume 96, Mean Corpuscular Hemoglobin 31.6H, Mean Corpuscular Hemoglobin Concent 33.1, Red Cell Distribution Width 17.4H, Platelet Count 102L, Mean Platelet Volume 11.7H, Neutrophils (%) (Auto) , Lymphocytes (%) (Auto) , Monocytes (%) (Auto) , Eosinophils (%) (Auto) , Basophils (%) (Auto) , Differential Total Cells Counted 100, Neutrophils % ( Manual) 88H, Lymphocytes % (Manual) 5L, Monocytes % (Manual) 5, Eosinophils % ( Manual) 1, Basophils % (Manual) 1, Band Neutrophils 0, Platelet Estimate DecreasedL, Platelet Morphology Normal, Hypochromasia 1+, Anisocytosis 1+, Sodium Level 134L, Potassium Level 4.1, Chloride Level 99, Carbon Dioxide Level 21, Anion Gap 14, Blood Urea Nitrogen 97H, Creatinine 4.5H, Estimat Glomerular Filtration Rate 13.2, Glucose Level 57L, Uric Acid 7.1, Calcium Level 8.4L, Phosphorus Level 3.7, Magnesium Level 2.0, Total Bilirubin 2.8H, Direct Bilirubin 2.1H, Aspartate Amino Transf (AST/SGOT) 32, Alanine Aminotransferase ( ALT/SGPT) < 6L, Alkaline Phosphatase 283H, Pro-B-Type Natriuretic Peptide > 82208F, Total Protein 6.5, Albumin 1.3L, Globulin 5.2, Albumin/Globulin Ratio 0.2L 12/14/18 10:20: Arterial Blood pH 7.453H, Arterial Blood Partial Pressure CO2 30.0L, Arterial Blood Partial Pressure O2 74.7L, Arterial Blood HCO3 20.5L, Arterial Blood Oxygen Saturation 94.3L, Arterial Blood Base Excess -2.5L, Jose Test Positive Height (Feet): 5 Height (Inches): 4.00 Weight (Pounds): 125 EENT: other - vented Cardiovascular: normal rate Respiratory/Chest: decreased breath sounds Abdomen: distended Objective no change Alessandro Price MD Dec 14, 2018 13:27
--- NOTE | 2018-12-14 13:30 | NUR ---
NURSE NOTES: 620ml of fluid taken out after paracentesis. Specimen sent to lab. VSS. No s/sx of distress.
--- NOTE | 2018-12-14 13:52 | General Progress Note ---
Progress Note Progress Note more awake and alert responsive nods he is doing okay difficult to wean from vent amputation site c/d/i. flap stable and viable. cont with current care. Damian Michaels Dec 14, 2018 13:52
--- NOTE | 2018-12-14 14:01 | Cardiology Report ---
APPROVED REPORT EKG Measurement Heart [id number] Normal sinus rhythm Incomplete right bundle branch block Abnormal ECG
--- NOTE | 2018-12-14 14:01 | NUR ---
STORAGE ADMINISTRATORAPPLE THINNER SI: S/P CODE BLUE ETT/VENT SUPPORT VS: BP 94/41, P 16, T 98.1, RR 27, SpO2 100 AC 16 TV 600 FIO2 30% PEEP 5.0 WBC 23.8, BUN 97 CR 4.5, ABG pH 7.453, pCO2 30.0, pO2 74.7, BOP407.5 CXR IMPRESSION: Suspected mild CHF/interstitial edema. IS:DILAUDID 0.5 IVP PREVACID 30mg NG SEVELAMER CARBONATE 800mg NG ICU STATUS
--- NOTE | 2018-12-14 14:04 | NUR ---
RD ASSESSMENT & RECOMMENDATIONS SEE CARE ACTIVITY FOR COMPLETE ASSESSMENT DAILY ESTIMATED NEEDS: Needs based on ESRD on HD, wounds, pulmonary, critical care/ 56kg 24-32 kcals/kg 0884-4952 total kcals 1.5-2.0 g protein/kg 84-112 g total protein Fluid per MD, on HD mL/kg total fluid mLs NUTRITION DIAGNOSIS: * Increased kcal and protein needs r/t wound healing and renal dysfunction as evidenced by pt w/ partial thickness wound @ sacrum and necrotic wounds @ Right lower extremity and R foot, ESRD dx, on HD. * Swallowing difficulty R/T dysphagia, respiratory status as evidenced by [employer] previously recommended NPO, nonoral feedings, now s/p code blue, orally intubated, on NGT feeding. CURRENT DIET:NPO CURRENT TF:Nepro @40ml/hr x24 hrs + PS x1 PO DIET RECOMMENDATIONS: S/p extubation + when safe for PO-> RENAL DIET/ texture per [employer]IST ENTERAL NUTRITION RECOMMENDATIONS: Nepro @ 40ml/hr x 24 hrs + Prosource 1pkt QD to provide 960ml, 1728kcal, 77g + 11g prot, 698ml free water * Maintain NEPRO @40ml/hr as tolerated. * Add Prosource 1pkt daily to meet protein needs * HOB over 30 degrees/ water flush per MD ADDITIONAL RECOMMENDATIONS: 1) Wound healing: Continue Sy 1pkt BID 2) Calibrated bedscale wt for accurate CBW- obtain dry wt post HD 3) Monitor lytes closely 4) Monitor BGs, need for hypoglycemic agents- h/o DM . .
--- NOTE | 2018-12-14 14:21 | General Progress Note ---
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 -Cont A/C rate of 16, Vt 600, FI02 40%, PEEP +5 -Cont vancomycin and meropenen -ABG PRN, titrate vent PRN -Pt with good mental status, CPAP as tolerated -Pulmonary consult noted, will d/w Pulm re oxygen requirements -ID consult noted, cont broad spectrum IV abx -Surgery consult appreciated, rec amputation, -MRI right foot and ankle: +osteomyelitis and fluid collection likely abscess -Vascular and podiatry consult appreciated -daily care per surgery -Cont pain management - monitor BP -s/p R AKA -failed weaning #Troponemia likely 2/2 type 2 NSTEMI -Trend trop and EKG - unremarkable -cardiology consult appreciated #Leukocytosis likly 2/2 infection -Flow cytometry pending -Hematology consult appreciated #Dysphagia -NG tube placed -tube feeds restarted at 10cc/hr given high residuals advance as tolerated to goal of 40cc/hr -GI consult appreciated -Tolerating feeds, rate at goal #DM now hypoglycemic -hypoglycemia likley 2/2 sepsis -hold antiDM medications -FSG Q6hrs -Currently on min tube feeds -Monitor respiratory status #ESRD on HD (MWF) via R arm fistula #HyperKalemia #HypoNA -no signs of fluid overload -nephrology consult appreciated -CTM electrolytes -HD per renal -Last HD 12/10 #Ascites -plan for paracenthesis Code: Full I spent 75 minutes on this patient's case, and 45 mins was dedicated to critical care Critical Care Services performed include: Telemetry Review Hemodynamic measurement interpretation Laboratory data review and interpretation Radiology image review and interpretation Ventilator setting review, management, and adjustment Interpretation of ABG's Discussion of patient's care with ICU team, ICU Nursing staff and/or consulting services Time of note may not represent time of encounter Subjective Date patient seen: Dec 13, 2018 ROS Limited/Unobtainable: Yes Allergies: Coded Allergies: PENICILLINS (Unverified Allergy, Mild, 12/05/18) PHENYTOIN (Verified Allergy, Unknown, 10/17/18) Uncoded Allergies: PENICILLIN (Allergy, Mild, 11/17/18) Subjective S/P R AKA, BP improved Opens eyes to verbal commands, follows commands, No signs of distress. Plan for paracenthesis, failed weaning Objective Last 24 Hour Vital Signs Date Time Temp Pulse Resp B/P (MAP) Pulse Ox O2 Delivery O2 Flow Rate FiO2 12/14/18 13:14 69 16 30 12/14/18 12:00 Mechanical Ventilator 12/14/18 12:00 30 12/14/18 12:00 70 20 94/42 (59) 100 12/14/18 12:00 71 12/14/18 11:26 71 16 30 12/14/18 10:00 71 20 112/34 (60) 100 12/14/18 09:00 30 12/14/18 09:00 70 20 103/41 (61) 100 12/14/18 08:54 70 16 30 12/14/18 08:00 30 12/14/18 08:00 98.9 71 27 110/48 (68) 100 12/14/18 08:00 72 12/14/18 08:00 Mechanical Ventilator 12/14/18 07:08 74 16 30 12/14/18 07:05 98.0 12/14/18 07:00 70 20 109/48 (68) 100 12/14/18 06:00 70 20 127/58 (81) 100 12/14/18 05:00 70 20 127/58 (81) 100 12/14/18 04:00 Mechanical Ventilator 12/14/18 04:00 71 12/14/18 04:00 98.0 69 19 128/49 (75) 100 12/14/18 04:00 30 12/14/18 03:00 68 22 123/48 (73) 100 12/14/18 02:00 68 26 110/39 (62) 100 12/14/18 01:00 69 26 105/47 (66) 100 12/14/18 00:00 98.0 69 31 112/46 (68) 100 12/14/18 00:00 69 12/14/18 00:00 Mechanical Ventilator 12/13/18 23:00 69 17 110/43 (65) 100 12/13/18 22:00 67 25 123/46 (71) 100 12/13/18 21:10 67 16 30 12/13/18 21:00 68 23 105/38 (60) 100 12/13/18 21:00 68 23 105/38 (60) 100 12/13/18 20:00 98.0 70 16 126/45 (72) 100 12/13/18 20:00 Mechanical Ventilator 12/13/18 20:00 30 12/13/18 20:00 70 12/13/18 20:00 98.1 70 16 126/45 (72) 100 12/13/18 19:00 68 16 119/50 (73) 100 12/13/18 18:46 68 17 30 12/13/18 18:00 69 16 124/53 (76) 100 12/13/18 17:18 72 17 30 12/13/18 17:00 72 16 127/60 (82) 100 12/13/18 16:00 40 12/13/18 16:00 71 12/13/18 16:00 98.2 69 16 124/56 (78) 100 12/13/18 16:00 Mechanical Ventilator 12/13/18 15:26 68 16 30 12/13/18 15:00 70 16 141/64 (89) 100 Intake and Output 12/13/18 12/14/18 18:59 06:59 Intake Total 830 ml 580 ml Output Total 0 ml 0 ml Balance 830 ml 580 ml Free Water 350 ml 100 ml Tube Feeding 480 ml 480 ml Output Urine Total 0 ml 0 ml # Bowel Movements 2 2 Laboratory Tests 12/14/18 03:40: White Blood Count 23.8*H, Red Blood Count 3.36L, Hemoglobin 10.6L, Hematocrit 32.1L, Mean Corpuscular Volume 96, Mean Corpuscular Hemoglobin 31.6H, Mean Corpuscular Hemoglobin Concent 33.1, Red Cell Distribution Width 17.4H, Platelet Count 102L, Mean Platelet Volume 11.7H, Neutrophils (%) (Auto) , Lymphocytes (%) (Auto) , Monocytes (%) (Auto) , Eosinophils (%) (Auto) , Basophils (%) (Auto) , Differential Total Cells Counted 100, Neutrophils % ( Manual) 88H, Lymphocytes % (Manual) 5L, Monocytes % (Manual) 5, Eosinophils % ( Manual) 1, Basophils % (Manual) 1, Band Neutrophils 0, Platelet Estimate DecreasedL, Platelet Morphology Normal, Hypochromasia 1+, Anisocytosis 1+, Sodium Level 134L, Potassium Level 4.1, Chloride Level 99, Carbon Dioxide Level 21, Anion Gap 14, Blood Urea Nitrogen 97H, Creatinine 4.5H, Estimat Glomerular Filtration Rate 13.2, Glucose Level 57L, Uric Acid 7.1, Calcium Level 8.4L, Phosphorus Level 3.7, Magnesium Level 2.0, Total Bilirubin 2.8H, Direct Bilirubin 2.1H, Aspartate Amino Transf (AST/SGOT) 32, Alanine Aminotransferase ( ALT/SGPT) < 6L, Alkaline Phosphatase 283H, Pro-B-Type Natriuretic Peptide > 89702Q, Total Protein 6.5, Albumin 1.3L, Globulin 5.2, Albumin/Globulin Ratio 0.2L 12/14/18 10:20: Arterial Blood pH 7.453H, Arterial Blood Partial Pressure CO2 30.0L, Arterial Blood Partial Pressure O2 74.7L, Arterial Blood HCO3 20.5L, Arterial Blood Oxygen Saturation 94.3L, Arterial Blood Base Excess -2.5L, Jose Test Positive Height (Feet): 5 Height (Inches): 4.00 Weight (Pounds): 125 Objective General: calm, appears stated age, intubated Head: normocephalic, without obvious abnormality, atraumatic Eyes: conjunctivae/corneas clear. PERRL, EOM's intact Throat: lips, mucosa, and tongue normal. MMM Neck: supple, symmetrical, trachea midline, and no JVD Lungs: b/l air entry Heart: regular rate and rhythm, S1, S2 normal, no murmur, click, rub or gallop Abdomen: soft, non-tender, non-distended, bowel sounds normal; no masses or organomegaly Extremities: L BKA, R AKA with dressing CDI Pulses: +1 pulse Skin: skin color, texture, turgor normal; no rashes or lesions Neurologic: grossly normal Frieda Miller MD Dec 14, 2018 14:21
--- NOTE | 2018-12-14 14:33 | Cardiology Report ---
APPROVED REPORT EKG Measurement Heart [id number] SD 210P35 [id number] Sinus rhythm with 1st degree AV block Rightward axis Abnormal ECG
--- NOTE | 2018-12-14 14:52 | Pre-Procedure Note/Attestation ---
Pre-Procedure Note/Attestation Complete Prior to Procedure Planned Procedure: not applicable Procedure Narrative: paracentesis Indications for Procedure Pre-Operative Diagnosis: ascites Attestation I attest that I discussed the nature of the procedure; its benefits; risks and complications; and alternatives (and the risks and benefits of such alternatives ), prior to the procedure, with the patient (or the patient's legal contact representative). I attest that, if there was a reasonable possibility of needing a blood transfusion, the patient (or the patient's legal contact representative) was given the [facility] standardized written summary, pursuant to the Noah Janet Blood Safety Act ([place] Health and Safety Code # 1645, as amended). I attest that I re-evaluated the patient just prior to the surgery and that there has been no change in the patient's H&P, except as documented below: Emergency 2 physician consent was obtained Gio Ramirez MD Dec 14, 2018 14:52
--- NOTE | 2018-12-14 14:53 | Brief Operative Note ---
Immediate Post Operative Note Operative Note Pre-op Diagnosis: ascites Procedure: paracentesis Post-op Diagnosis: same as pre-op Surgeon: Armando Ramirez Anesthesia: local Specimen: yes - clear yellow fluid sent to lab Complications: none Fluids: none Implant(s) used?: No Gio Ramirez MD Dec 14, 2018 14:53
--- NOTE | 2018-12-14 15:09 | General Progress Note ---
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 -Cont A/C rate of 16, Vt 600, FI02 40%, PEEP +5 -Cont vancomycin and meropenen -ABG PRN, titrate vent PRN -Pt with good mental status, CPAP as tolerated -Pulmonary consult noted, will d/w Pulm re oxygen requirements -ID consult noted, cont broad spectrum IV abx -Surgery consult appreciated, rec amputation, -MRI right foot and ankle: +osteomyelitis and fluid collection likely abscess -Vascular and podiatry consult appreciated -daily care per surgery -Cont pain management - monitor BP -s/p R AKA -failed weaning again #Troponemia likely 2/2 type 2 NSTEMI -Trend trop and EKG - unremarkable -cardiology consult appreciated #Leukocytosis likly 2/2 infection -Flow cytometry pending -Hematology consult appreciated #Dysphagia -NG tube placed -tube feeds restarted at 10cc/hr given high residuals advance as tolerated to goal of 40cc/hr -GI consult appreciated -Tolerating feeds, rate at goal #DM now hypoglycemic -hypoglycemia likley 2/2 sepsis -hold antiDM medications -FSG Q6hrs -Currently on min tube feeds -Monitor respiratory status #ESRD on HD (MWF) via R arm fistula #HyperKalemia #HypoNA -no signs of fluid overload -nephrology consult appreciated -CTM electrolytes -HD per renal -Last HD 12/10 #Ascites -plan for paracenthesis today Code: Full I spent 75 minutes on this patient's case, and 45 mins was dedicated to critical care Critical Care Services performed include: Telemetry Review Hemodynamic measurement interpretation Laboratory data review and interpretation Radiology image review and interpretation Ventilator setting review, management, and adjustment Interpretation of ABG's Discussion of patient's care with ICU team, ICU Nursing staff and/or consulting services Time of note may not represent time of encounter Subjective Date patient seen: Dec 14, 2018 ROS Limited/Unobtainable: Yes Allergies: Coded Allergies: PENICILLINS (Unverified Allergy, Mild, 12/05/18) PHENYTOIN (Verified Allergy, Unknown, 10/17/18) Uncoded Allergies: PENICILLIN (Allergy, Mild, 11/17/18) Subjective S/P R AKA, BP improved Opens eyes to verbal commands, follows commands, No signs of distress. Plan for paracenthesis, failed weaning again Objective Last 24 Hour Vital Signs Date Time Temp Pulse Resp B/P (MAP) Pulse Ox O2 Delivery O2 Flow Rate FiO2 12/14/18 13:14 69 16 30 12/14/18 12:00 Mechanical Ventilator 12/14/18 12:00 30 12/14/18 12:00 70 20 94/42 (59) 100 12/14/18 12:00 71 12/14/18 11:26 71 16 30 12/14/18 10:00 71 20 112/34 (60) 100 12/14/18 09:00 30 12/14/18 09:00 70 20 103/41 (61) 100 12/14/18 08:54 70 16 30 12/14/18 08:00 30 12/14/18 08:00 98.9 71 27 110/48 (68) 100 12/14/18 08:00 72 12/14/18 08:00 Mechanical Ventilator 12/14/18 07:08 74 16 30 12/14/18 07:05 98.0 12/14/18 07:00 70 20 109/48 (68) 100 12/14/18 06:00 70 20 127/58 (81) 100 12/14/18 05:00 70 20 127/58 (81) 100 12/14/18 04:00 Mechanical Ventilator 12/14/18 04:00 71 12/14/18 04:00 98.0 69 19 128/49 (75) 100 12/14/18 04:00 30 12/14/18 03:00 68 22 123/48 (73) 100 12/14/18 02:00 68 26 110/39 (62) 100 12/14/18 01:00 69 26 105/47 (66) 100 12/14/18 00:00 98.0 69 31 112/46 (68) 100 12/14/18 00:00 69 12/14/18 00:00 Mechanical Ventilator 12/13/18 23:00 69 17 110/43 (65) 100 12/13/18 22:00 67 25 123/46 (71) 100 12/13/18 21:10 67 16 30 12/13/18 21:00 68 23 105/38 (60) 100 12/13/18 21:00 68 23 105/38 (60) 100 12/13/18 20:00 98.0 70 16 126/45 (72) 100 12/13/18 20:00 Mechanical Ventilator 12/13/18 20:00 30 12/13/18 20:00 70 12/13/18 20:00 98.1 70 16 126/45 (72) 100 12/13/18 19:00 68 16 119/50 (73) 100 12/13/18 18:46 68 17 30 12/13/18 18:00 69 16 124/53 (76) 100 12/13/18 17:18 72 17 30 12/13/18 17:00 72 16 127/60 (82) 100 12/13/18 16:00 40 12/13/18 16:00 71 12/13/18 16:00 98.2 69 16 124/56 (78) 100 12/13/18 16:00 Mechanical Ventilator 12/13/18 15:26 68 16 30 Intake and Output 12/13/18 12/14/18 19:00 07:00 Intake Total 830 ml 580 ml Output Total 0 ml 0 ml Balance 830 ml 580 ml Free Water 350 ml 100 ml Tube Feeding 480 ml 480 ml Output Urine Total 0 ml 0 ml # Bowel Movements 2 2 Laboratory Tests 12/14/18 03:40: White Blood Count 23.8*H, Red Blood Count 3.36L, Hemoglobin 10.6L, Hematocrit 32.1L, Mean Corpuscular Volume 96, Mean Corpuscular Hemoglobin 31.6H, Mean Corpuscular Hemoglobin Concent 33.1, Red Cell Distribution Width 17.4H, Platelet Count 102L, Mean Platelet Volume 11.7H, Neutrophils (%) (Auto) , Lymphocytes (%) (Auto) , Monocytes (%) (Auto) , Eosinophils (%) (Auto) , Basophils (%) (Auto) , Differential Total Cells Counted 100, Neutrophils % ( Manual) 88H, Lymphocytes % (Manual) 5L, Monocytes % (Manual) 5, Eosinophils % ( Manual) 1, Basophils % (Manual) 1, Band Neutrophils 0, Platelet Estimate DecreasedL, Platelet Morphology Normal, Hypochromasia 1+, Anisocytosis 1+, Sodium Level 134L, Potassium Level 4.1, Chloride Level 99, Carbon Dioxide Level 21, Anion Gap 14, Blood Urea Nitrogen 97H, Creatinine 4.5H, Estimat Glomerular Filtration Rate 13.2, Glucose Level 57L, Uric Acid 7.1, Calcium Level 8.4L, Phosphorus Level 3.7, Magnesium Level 2.0, Total Bilirubin 2.8H, Direct Bilirubin 2.1H, Aspartate Amino Transf (AST/SGOT) 32, Alanine Aminotransferase ( ALT/SGPT) < 6L, Alkaline Phosphatase 283H, Pro-B-Type Natriuretic Peptide > 61889Q, Total Protein 6.5, Albumin 1.3L, Globulin 5.2, Albumin/Globulin Ratio 0.2L 12/14/18 10:20: Arterial Blood pH 7.453H, Arterial Blood Partial Pressure CO2 30.0L, Arterial Blood Partial Pressure O2 74.7L, Arterial Blood HCO3 20.5L, Arterial Blood Oxygen Saturation 94.3L, Arterial Blood Base Excess -2.5L, Jose Test Positive Height (Feet): 5 Height (Inches): 4.00 Weight (Pounds): 125 Objective General: calm, appears stated age, intubated Head: normocephalic, without obvious abnormality, atraumatic Eyes: conjunctivae/corneas clear. PERRL, EOM's intact Throat: lips, mucosa, and tongue normal. MMM Neck: supple, symmetrical, trachea midline, and no JVD Lungs: b/l air entry Heart: regular rate and rhythm, S1, S2 normal, no murmur, click, rub or gallop Abdomen: soft, non-tender, non-distended, bowel sounds normal; no masses or organomegaly Extremities: L BKA, R AKA with dressing CDI Pulses: +1 pulse Skin: skin color, texture, turgor normal; no rashes or lesions Neurologic: grossly normal Frieda Miller MD Dec 14, 2018 15:09
--- NOTE | 2018-12-14 15:15 | NUR ---
NURSE NOTES: Turned and repositioned. Kept dry and clean. x1 yellow, seedy BM noted.
--- NOTE | 2018-12-14 17:14 | General Progress Note ---
Assessment/Plan Assessment/Plan ASSESSMENT/RECS: # Leukocytosis/Elevated white blood cell count, unspecified likely related to underlying stress reaction, smoking, or underlying infection (especially if bandemia is noted) --> have reviewed peripheral smear and bandemia/neutrophilia noted --> esr and crp elevated on prior labs --> continue on meropenem and vancomycin started by ID team --> monitor for resolution 28k-->21k-->24-->21k-->24-->25-->24k-->24k --> flow cytometry reviewed and is negative for abnormal clonal population of cells # Anemia of chronic disease due to underlying chronic medical issues, multifactorial --> Anemia workup has been reviewed, Ferritin 1678 --> No evidence of hemolysis is noted, peripheral smear has been reviewed. --> Hgb goal >7. Transfuse prn. --> Epogen or iron at this time is not particularly indicated --> Medications have been reviewed --> trend hgb 11 # Thrombocytopenia is due to sepsis --> trending down currently 102k # Coagulopathy with elevated inr --> consider repeat in one week --> obtain a mixing study if pTT rises any further # Sepsis, elevated white count --> on meropenem and vancomycin, as per id --> appreciate ID recs # End-stage renal disease on hemodialysis --> appreciate nephro recs --> hd as needed # R foot infection vs UTI vs PNA --> appreciate ID recs --> right AKA 12/11/18 # Acute hypercapnic respiratory failure --> intubated --> appreciate pulm recs # Intubated The timing of this note does not necessarily reflect the time of the patient was seen. Greatly appreciate consultation! Subjective HEENT: Denies: no symptoms, eye pain, blurred vision, tearing, double vision, ear pain, ear discharge, nose pain, nose congestion, throat pain, throat swelling, mouth pain, mouth swelling, other Cardiovascular: Denies: no symptoms, chest pain, edema, irregular heart rate, lightheadedness, palpitations, syncope, other Respiratory: Denies: no symptoms, cough, orthopnea, shortness of breath, SOB with excertion, SOB at rest, sputum, stridor, wheezing, other Gastrointestinal/Abdominal: Denies: no symptoms, abdomen distended, abdominal pain, black stools, tarry stools, blood in stool, constipated, diarrhea, difficulty swallowing, nausea, poor appetite, poor fluid intake, rectal bleeding , vomiting, other Genitourinary: Denies: no symptoms, burning, discharge, frequency, flank pain, hematuria, incontinence, pain, urgency, other Neurologic/Psychiatric: Denies: no symptoms, anxiety, depressed, emotional problems, headache, numbness, paresthesia, pre-existing deficit, seizure, tingling, tremors, weakness, other Endocrine: Denies: no symptoms, excessive sweating, flushing, intolerance to cold, intolerance to heat, increased hunger, increased thirst, increased urine, unexplained weight gain, unexplained weight loss, other Allergies: Coded Allergies: PENICILLINS (Unverified Allergy, Mild, 12/05/18) PHENYTOIN (Verified Allergy, Unknown, 10/17/18) Uncoded Allergies: PENICILLIN (Allergy, Mild, 11/17/18) Subjective 12/07: seen by bedside, leukocytosis trending up at 24, on abx, hgb 7.6, no events 12/09: Pt is resting in bed, wbc remains elevated, 12/10: on abx, wbc is better, anemia panel reviewed, getting hd 12/11: Pt is s/p code blue, pt intubated and transferred to ICU, right AKA schedule today. wbc elevated at 24 12/12: seen by bedside, appears weak and lethargic , failed weaning, wbc elevated. 12/13: remains intubated, cards consulted, on vent, not alert 12/14: labs have been reviewed, on abx, plt lower Objective Last 24 Hour Vital Signs Date Time Temp Pulse Resp B/P (MAP) Pulse Ox O2 Delivery O2 Flow Rate FiO2 12/14/18 16:00 Mechanical Ventilator 12/14/18 16:00 75 12/14/18 16:00 30 12/14/18 15:29 70 16 30 12/14/18 15:00 70 20 92/38 (56) 100 12/14/18 14:00 69 20 125/45 (71) 100 12/14/18 13:14 69 16 30 12/14/18 13:00 98.8 70 20 102/39 (60) 100 12/14/18 12:00 Mechanical Ventilator 12/14/18 12:00 30 12/14/18 12:00 70 20 94/42 (59) 100 12/14/18 12:00 71 12/14/18 11:26 71 16 30 12/14/18 10:00 71 20 112/34 (60) 100 12/14/18 09:00 30 12/14/18 09:00 70 20 103/41 (61) 100 12/14/18 08:54 70 16 30 12/14/18 08:00 30 12/14/18 08:00 98.9 71 27 110/48 (68) 100 12/14/18 08:00 72 12/14/18 08:00 Mechanical Ventilator 12/14/18 07:08 74 16 30 12/14/18 07:05 98.0 12/14/18 07:00 70 20 109/48 (68) 100 12/14/18 06:00 70 20 127/58 (81) 100 12/14/18 05:00 70 20 127/58 (81) 100 12/14/18 04:00 Mechanical Ventilator 12/14/18 04:00 71 12/14/18 04:00 98.0 69 19 128/49 (75) 100 12/14/18 04:00 30 12/14/18 03:00 68 22 123/48 (73) 100 12/14/18 02:00 68 26 110/39 (62) 100 12/14/18 01:00 69 26 105/47 (66) 100 12/14/18 00:00 98.0 69 31 112/46 (68) 100 12/14/18 00:00 69 12/14/18 00:00 Mechanical Ventilator 12/13/18 23:00 69 17 110/43 (65) 100 12/13/18 22:00 67 25 123/46 (71) 100 12/13/18 21:10 67 16 30 12/13/18 21:00 68 23 105/38 (60) 100 12/13/18 21:00 68 23 105/38 (60) 100 12/13/18 20:00 98.0 70 16 126/45 (72) 100 12/13/18 20:00 Mechanical Ventilator 12/13/18 20:00 30 12/13/18 20:00 70 12/13/18 20:00 98.1 70 16 126/45 (72) 100 12/13/18 19:00 68 16 119/50 (73) 100 12/13/18 18:46 68 17 30 12/13/18 18:00 69 16 124/53 (76) 100 12/13/18 17:18 72 17 30 Intake and Output 12/13/18 12/14/18 18:59 06:59 Intake Total 830 ml 580 ml Output Total 0 ml 0 ml Balance 830 ml 580 ml Free Water 350 ml 100 ml Tube Feeding 480 ml 480 ml Output Urine Total 0 ml 0 ml # Bowel Movements 2 2 Laboratory Tests 12/14/18 03:40: White Blood Count 23.8*H, Red Blood Count 3.36L, Hemoglobin 10.6L, Hematocrit 32.1L, Mean Corpuscular Volume 96, Mean Corpuscular Hemoglobin 31.6H, Mean Corpuscular Hemoglobin Concent 33.1, Red Cell Distribution Width 17.4H, Platelet Count 102L, Mean Platelet Volume 11.7H, Neutrophils (%) (Auto) , Lymphocytes (%) (Auto) , Monocytes (%) (Auto) , Eosinophils (%) (Auto) , Basophils (%) (Auto) , Differential Total Cells Counted 100, Neutrophils % ( Manual) 88H, Lymphocytes % (Manual) 5L, Monocytes % (Manual) 5, Eosinophils % ( Manual) 1, Basophils % (Manual) 1, Band Neutrophils 0, Platelet Estimate DecreasedL, Platelet Morphology Normal, Hypochromasia 1+, Anisocytosis 1+, Sodium Level 134L, Potassium Level 4.1, Chloride Level 99, Carbon Dioxide Level 21, Anion Gap 14, Blood Urea Nitrogen 97H, Creatinine 4.5H, Estimat Glomerular Filtration Rate 13.2, Glucose Level 57L, Uric Acid 7.1, Calcium Level 8.4L, Phosphorus Level 3.7, Magnesium Level 2.0, Total Bilirubin 2.8H, Direct Bilirubin 2.1H, Aspartate Amino Transf (AST/SGOT) 32, Alanine Aminotransferase ( ALT/SGPT) < 6L, Alkaline Phosphatase 283H, Pro-B-Type Natriuretic Peptide > 74542A, Total Protein 6.5, Albumin 1.3L, Globulin 5.2, Albumin/Globulin Ratio 0.2L 12/14/18 10:20: Arterial Blood pH 7.453H, Arterial Blood Partial Pressure CO2 30.0L, Arterial Blood Partial Pressure O2 74.7L, Arterial Blood HCO3 20.5L, Arterial Blood Oxygen Saturation 94.3L, Arterial Blood Base Excess -2.5L, Jose Test Positive 12/14/18 14:40: Body Fluid Glucose [Pending], Body Fluid Total Protein [Pending] Height (Feet): 5 Height (Inches): 4.00 Weight (Pounds): 125 Objective VITAL SIGNS: Reviewed ++ intubated GENERAL: Alert and responsive No significant shortness of breath noted. HEAD AND NECK: Oral examination, no thrush. Neck is supple. No JVD. HEART: Regular. No gallop or murmur. ABDOMEN: Soft. Positive bowel sounds. Nontender. No organomegaly. LUNGS: Few bilateral rhonchi. No definite rales on exam. Decreased breath sounds, Intubated++ SKIN: No rash. Wounds were reviewed. Extremities: right AKA as well as L Vadim Sandhu MD Dec 14, 2018 17:14
--- NOTE | 2018-12-14 18:23 | NUR ---
NURSE NOTES: Dressing on right stump fell off, new dressings applied. No drainage or foul odor noted.
--- NOTE | 2018-12-14 18:25 | Diagnostic Imaging Report ---
Indications: Ascites Technique: Ultrasound used to localize optimal puncture site. Sterile prepping and draping right lower quadrant. Local anesthesia with 1% lidocaine. Under real-time ultrasound guidance, puncture peritoneal space using paracentesis needle. Stylet removed. Catheter placed to vacuum bottle suction. Total 6400 liters of fluid aspirated. Patient tolerated procedure well, without immediate complication. Findings: Followup sonography demonstrates complete resolution of peritoneal fluid. Impression: Successful ultrasound-guided paracentesis, yielding 6400 liters of fluid
--- NOTE | 2018-12-14 19:15 | NUR ---
HAND-OFF: Report given to SONG Bourgeois.
--- NOTE | 2018-12-14 19:16 | NUR ---
NURSE NOTES: Endorsement received from SONG Franco. Patient opens eyes spontaneously. Follows simple commands. Orally intubated with ET 7.5, 23 lipline. AC 16 Vt 600 PEEP 5, 30%. NGT patent and intact. Placement rechecked per auscultation. Nepro 40 ml/hr. Noted with 100ml residual. Feeding turned off at this time. Right upper arm AV shunt. Bruit and thrill present. Left forearm g 20, left hand g20. S/P paracentesis today, dressing at right lower abdomen dry and intact. On P200 mattress. Bed locked and in low position. Bed alarm on. Will continue to monitor.
[2018-12-14] MEDS: Betadine 4oz Bottle TOPIC SCH (20:38)
[2018-12-14] MEDS: Meropenem 500 MG in NS 55 ML IVPB SCH (20:38)
--- NOTE | 2018-12-14 22:00 | NUR ---
NURSE NOTES: Patient's family from [place] at bedside.
--- NOTE | 2018-12-14 23:31 | Infectious Diseases Prog Note ---
Assessment/Plan Assessment/Plan ASSESSMENT AND PLAN: 1. right ankle/foot/leg infected wound/gangrene/necrosis/?ischemia/osteomyelitis , sepsis, esbl e.coli uti, MRSA pna, leukocytosis persists - s/p right aka, on vent post op - vancomycin and meropenem - monitor labs and chest x-ray - monitor leukocytosis - notes reviewed - d/w RN 2. The patient has end-stage renal disease on hemodialysis. He has a shunt. No hemodialysis line. 3. pvd - bilateral leg amputation 4. Anemia, hx uti 5. Elevated creatinine. 6. Renal failure. 7. The patient has history of diabetes. 8. Hypertension. 9. COPD. 10. CHF. 11. Hypertension and diabetes treatment per primary. 12. Allergies to penicillin and phenytoin, tolerates meropenem. 13. Social history is negative for smoking, alcohol, or drug abuse. 14. Family history is noncontributory. 15. MAR was noted. 16. Case discussed with RN. 17. Continue treatment per primary consultants. 18. Case communicated with Dr. Frieda Clay. 19. Orders were noted and entered. 20. Continue treatment per primary consultants. 21. mrsa and vre colonization Subjective Constitutional: Reports: other - on vent ; Denies: fever HEENT: Reports: congestion Respiratory: Reports: shortness of breath Cardiovascular: Reports: other - no pressors Gastrointestinal/Abdominal: Denies: nausea, vomiting Allergies: Coded Allergies: PENICILLINS (Unverified Allergy, Mild, 12/05/18) PHENYTOIN (Verified Allergy, Unknown, 10/17/18) Uncoded Allergies: PENICILLIN (Allergy, Mild, 11/17/18) Objective Vital Signs Last 24 Hour Vital Signs Date Time Temp Pulse Resp B/P (MAP) Pulse Ox O2 Delivery O2 Flow Rate FiO2 12/14/18 22:58 75 17 30 12/14/18 22:00 77 27 133/56 (81) 100 12/14/18 21:00 73 29 120/51 (74) 100 12/14/18 20:51 75 16 30 12/14/18 20:00 30 12/14/18 20:00 Mechanical Ventilator 12/14/18 20:00 74 16 134/67 (89) 100 12/14/18 19:05 68 16 30 12/14/18 19:00 97.5 70 22 155/52 (86) 99 3/22/19 18:44 98.8 12/14/18 18:00 72 20 137/52 (80) 100 12/14/18 17:15 73 16 30 12/14/18 17:00 73 20 138/61 (86) 100 12/14/18 16:00 Mechanical Ventilator 12/14/18 16:00 75 12/14/18 16:00 99.1 73 20 97/43 (61) 100 12/14/18 16:00 30 12/14/18 15:29 70 16 30 12/14/18 15:00 70 20 92/38 (56) 100 12/14/18 14:00 69 20 125/45 (71) 100 12/14/18 13:14 69 16 30 12/14/18 13:00 98.8 70 20 102/39 (60) 100 12/14/18 12:00 Mechanical Ventilator 12/14/18 12:00 30 12/14/18 12:00 70 20 94/42 (59) 100 12/14/18 12:00 71 12/14/18 11:26 71 16 30 12/14/18 10:00 71 20 112/34 (60) 100 12/14/18 09:00 30 12/14/18 09:00 70 20 103/41 (61) 100 12/14/18 08:54 70 16 30 12/14/18 08:00 30 12/14/18 08:00 98.9 71 27 110/48 (68) 100 12/14/18 08:00 72 12/14/18 08:00 Mechanical Ventilator 12/14/18 07:08 74 16 30 12/14/18 07:00 70 20 109/48 (68) 100 12/14/18 06:00 70 20 127/58 (81) 100 12/14/18 05:00 70 20 127/58 (81) 100 12/14/18 04:00 Mechanical Ventilator 12/14/18 04:00 71 12/14/18 04:00 98.0 69 19 128/49 (75) 100 12/14/18 04:00 30 12/14/18 03:00 68 22 123/48 (73) 100 12/14/18 02:00 68 26 110/39 (62) 100 12/14/18 01:00 69 26 105/47 (66) 100 12/14/18 00:00 98.0 69 31 112/46 (68) 100 12/14/18 00:00 69 12/14/18 00:00 Mechanical Ventilator Height (Feet): 5 Height (Inches): 4.00 Weight (Pounds): 125 HEENT: normocephalic, atraumatic, anicteric, other - on vent Cardiovascular: normal rate, regular rhythm Abdomen: normal bowel sounds, soft, non tender, no organomegaly Objective Chest x-ray - 12/07/18 - Comparison: 12/05/2018 Findings: Interim placement of a nasogastric tube, tip projecting at the level gastric fundus, proximal port probably beyond the gastroesophageal junction. Bilateral interstitial and airspace opacities appear similar to the previous study. Right arm and innominate venous stents are again demonstrated. MRI - right ankle - Impression: Marrow edema, suspicious for osteomyelitis, involving the posterior calcaneus, talus, middle and lateral cuneiforms Multiple fluid collections versus very edematous phlegmon, as described. These could represent abscesses Evidence of heel ulceration and marked thinning of the skin, consistent with stated clinical history of ulceration and necrotic wound Chest x-ray - 12/09/18 - COMPARISON: Chest x-ray dated 12/07/18 FINDINGS: Lungs: No significant interval change of bilateral interstitial and airspace opacities. Pleural space: Unremarkable. The costophrenic angles are sharp. No visible pneumothorax. Heart: Unremarkable. No cardiomegaly. Mediastinum: Unremarkable. Bones/joints: Degenerative changes throughout the visualized spine and shoulder joints. Vasculature: Unchanged positioning of the right arm and innominate vein stents. Atherosclerotic calcifications within the aortic arch. Tubes, lines and devices: Stable positioning of the NG tube. Telemetry leads overlie the thorax. IMPRESSION: No significant interval change of bilateral interstitial and airspace opacities. Chest x-ray - 12/11/18 - Procedure: XRAY Chest x-ray Comparison: 12/09/2018 A single view chest radiograph was obtained. Findings: Endotracheal tube is just above the akhil in good position. Patchy interstitial densities demonstrated. NG tube noted. SVC stent and other stents in the right upper arm demonstrated. Heart is enlarged. Bones are osteopenic. Chest x-ray - 12/13/18 - IMPRESSION: A single view chest radiograph was obtained. Findings: Slightly heterogeneous interstitial disease noted probably on the basis of heart failure. Correlate clinically. Tubes and lines are stable. IMPRESSION: Suspected mild CHF/interstitial edema. Laboratory Tests Test 12/14/18 03:40 12/14/18 10:20 12/14/18 14:40 White Blood Count 23.8 K/UL (4.8-10.8) *H Red Blood Count 3.36 M/UL (4.70-6.10) L Hemoglobin 10.6 G/DL (14.2-18.0) L Hematocrit 32.1 % (42.0-52.0) L Mean Corpuscular Volume 96 FL (80-99) Mean Corpuscular Hemoglobin 31.6 PG (27.0-31.0) H Mean Corpuscular Hemoglobin Concent 33.1 G/DL (32.0-36.0) Red Cell Distribution Width 17.4 % (11.6-14.8) H Platelet Count 102 K/UL (150-450) L Mean Platelet Volume 11.7 FL (6.5-10.1) H Neutrophils (%) (Auto) % (45.0-75.0) Lymphocytes (%) (Auto) % (20.0-45.0) Monocytes (%) (Auto) % (1.0-10.0) Eosinophils (%) (Auto) % (0.0-3.0) Basophils (%) (Auto) % (0.0-2.0) Differential Total Cells Counted 100 Neutrophils % (Manual) 88 % (45-75) H Lymphocytes % (Manual) 5 % (20-45) L Monocytes % (Manual) 5 % (1-10) Eosinophils % (Manual) 1 % (0-3) Basophils % (Manual) 1 % (0-2) Band Neutrophils 0 % (0-8) Platelet Estimate Decreased L Platelet Morphology Normal Hypochromasia 1+ Anisocytosis 1+ Sodium Level 134 MMOL/L (136-145) L Potassium Level 4.1 MMOL/L (3.5-5.1) Chloride Level 99 MMOL/L (98-107) Carbon Dioxide Level 21 MMOL/L (21-32) Anion Gap 14 mmol/L (5-15) Blood Urea Nitrogen 97 mg/dL (7-18) H Creatinine 4.5 MG/DL (0.55-1.30) H Estimat Glomerular Filtration Rate 13.2 mL/min (>60) Glucose Level 57 MG/DL (74-106) L Uric Acid 7.1 MG/DL (2.6-7.2) Calcium Level 8.4 MG/DL (8.5-10.1) L Phosphorus Level 3.7 MG/DL (2.5-4.9) Magnesium Level 2.0 MG/DL (1.8-2.4) Total Bilirubin 2.8 MG/DL (0.2-1.0) H Direct Bilirubin 2.1 MG/DL (0.0-0.3) H Aspartate Amino Transf (AST/SGOT) 32 U/L (15-37) Alanine Aminotransferase (ALT/SGPT) < 6 U/L (12-78) L Alkaline Phosphatase 283 U/L (46-116) H Pro-B-Type Natriuretic Peptide > 35152 pg/mL (0-125) H Total Protein 6.5 G/DL (6.4-8.2) Albumin 1.3 G/DL (3.4-5.0) L Globulin 5.2 g/dL Albumin/Globulin Ratio 0.2 (1.0-2.7) L Arterial Blood pH 7.453 (7.350-7.450) Arterial Blood Partial Pressure CO2 30.0 mmHg (35.0-45.0) L Arterial Blood Partial Pressure O2 74.7 mmHg (75.0-100.0) L Arterial Blood HCO3 20.5 mmol/L (22.0-26.0) L Arterial Blood Oxygen Saturation 94.3 % (95-100) L Arterial Blood Base Excess -2.5 (-2-2) L Jose Test Positive Body Fluid Glucose Pending Body Fluid Total Protein Pending Current Medications Medications (Trade) Dose Ordered Sig/Ronald Route PRN Reason Start Time Stop Time Status Last Admin Dose Admin Dextrose (Dextrose 50%) 25 ml Q30M PRN IV Hypoglycemia 12/11/18 02:45 01/03/19 22:44 12/11/18 06:23 Dextrose (Dextrose 50%) 50 ml Q30M PRN IV Hypoglycemia 12/11/18 02:45 01/03/19 22:44 12/11/18 18:45 Docusate Sodium (Colace) 200 mg DAILY NG 12/11/18 09:00 01/10/19 08:59 12/14/18 08:23 Hydromorphone HCl (Dilaudid) 0.5 mg Q4H PRN IVP For Pain 12/12/18 11:45 12/19/18 11:44 12/14/18 18:14 Lansoprazole (Prevacid) 30 mg BID NG 12/11/18 18:00 01/08/19 08:59 12/14/18 18:14 Lorazepam (Ativan 2mg/ml 1ml) 2 mg Q4H PRN IV For Anxiety 12/11/18 09:00 12/18/18 08:59 Meropenem 500 mg/ Sodium Chloride 55 ml @ 110 mls/hr Q24H IVPB 12/13/18 21:00 12/16/18 20:59 12/14/18 20:38 Metoclopramide HCl (Reglan) 5 mg Q8H PRN IVP Nausea & Vomiting 12/11/18 09:00 01/10/19 08:59 12/14/18 20:44 Morphine Sulfate (Morphine Sulfate) 4 mg Q4H PRN IVP SEVERE BREAKTHROUGH PAIN 12/11/18 09:00 12/18/18 08:59 Povidone Iodine (Betadine María) 1 applic QHS TOPIC 12/11/18 21:00 01/05/19 20:59 12/14/18 20:38 Pyridoxine HCl (Vitamin B6) 25 mg DAILY NG 12/11/18 09:00 01/07/19 08:59 12/14/18 08:23 Sevelamer Carbonate (Renvela) 800 mg THREE TIMES A DAY NG 12/11/18 09:00 01/07/19 08:59 12/14/18 18:14 Anshu Munguia MD Dec 14, 2018 23:31
[2018-12-15] VITALS (24 sets, daily range): BP systolic 108–151; BP diastolic 32–78
--- NOTE | 2018-12-15 | Cardiology Report ---
APPROVED REPORT EKG Measurement Heart [id number] CO [id number] Sinus rhythm with 1st degree AV block Right bundle branch block Abnormal ECG
--- NOTE | 2018-12-15 | NUR ---
NURSE NOTES: Patient awake, oriented x3. Able to communicate needs by nodding or shaking head and mouthing words. Still noted with yellowish clear residual. NG feeding still withheld at this time.
--- NOTE | 2018-12-15 00:06 | Cardiology Report ---
APPROVED REPORT EKG Measurement Heart [id number] Sinus rhythm with 1st degree AV block Right bundle branch block Abnormal ECG
--- NOTE | 2018-12-15 00:07 | Cardiology Report ---
APPROVED REPORT EKG Measurement Heart [id number] [place] 212P45 [id number] Sinus rhythm with 1st degree AV block Right bundle branch block Abnormal ECG
--- NOTE | 2018-12-15 00:10 | Cardiology Report ---
APPROVED REPORT EKG Measurement Heart [id number] [place] 242P-[id number] Sinus rhythm with 1st degree AV block Right bundle branch block Abnormal ECG
--- NOTE | 2018-12-15 02:00 | NUR ---
NURSE NOTES: Patient asleep at this time. No signs of pain or discomfort. Right stump kept elevated.
[2018-12-15] MEDS: Hydromorphone 0.5mg/0.5ml inj IVP PRN (03:54)
--- NOTE | 2018-12-15 04:00 | NUR ---
NURSE NOTES: Bed bath, oral care, change of linens done. PRN Dilaudid given prior to the activity.
--- NOTE | 2018-12-15 05:00 | NUR ---
NURSE NOTES: Upper Cutter Out at bedside. Patient refusing blood draw, explained risks and benefits. Patient still refused. Informed aircraft instrument mechanic to try again later.
--- NOTE | 2018-12-15 06:44 | NUR ---
NURSE NOTES: Patientr is asking for eye drops for dryness. Will endorse to morning shift.
--- NOTE | 2018-12-15 07:24 | NUR ---
HAND-OFF: Report given to SONG Franco.
--- NOTE | 2018-12-15 07:25 | NUR ---
NURSE NOTES: Received patient from SONG Bourgeois. Patient VS stable at this time with no sign of acute distress. Patient denies pain or discomfort. Patient awake at this time and able to follow commands and answer yes/no questions. Patient on ventilator with ETT 7.5 with 23cm and the lip line. Patient on ventilator setting of AC 16, TV 600, FiO2 30%, and PEEP 5. Patient tolerating setting with oxygen saturation of 100%. Patient has an nasogastric tube that is patent and in place at this time. Placement verified by auscultation. Patient has residual of 20cc this morning. Patient had residual of 150cc last night. Feeding was held and resumed at 0400 at 20mL/hr. Patient is running Nepro with goal of 40mL/hr. Patient is anuric. Patient had surgery for right above the knee amputation on 12/11 and paracentesis on 12/14 with 6.4L out. Patient had dialysis yesterday with 250mL out. Patient is on glucose monitoring every 6 hours with no sliding scale. Patient has sacral stage 2 wound and DTI on the left trochantar. Dressings dry and intact. Patient has history of left BKA. Patient has right upper arm AV shunt that is patent and asymptomatic at this time. Patient has left hand 20G and left forearm 20G PIVs that are both patent and asymptomatic and saline locked at this time. Patient refused labs this morning. Will follow up with laboratory to draw labs later this morning if patient consents. Patient is requesting eye drops. Will ask primary MD when they round on the patient. Patient bed in low position with bed alarm on and call light in reach at this time.
--- NOTE | 2018-12-15 09:14 | Pulmonolgy Critical Care Note ---
Critical Care - Asmt/Plan Problems: (1) Acute respiratory failure (2) Sepsis (3) End stage liver disease (4) ESRF (end stage renal failure) (5) Ascites (6) Diabetes mellitus (7) S/P BKA (below knee amputation) Respiratory: monitor respiratory rate Cardiac: continue pressors, continue to monitor HR/BP Renal: F/U I&O, keep IV fluid Infectious Disease: check cultures Gastrointestinal: continue feedings/current rate Endocrine: monitor blood sugar Hematologic: monitor H/H Neurologic: PRN Ativan, keep patient comfortable Affect: PRN ativan Prophylaxis: Protonix Notes Reviewed: marketing communications manager, renal Discussed with: nurses, consultants, keycase assemblertruck rental manager - Objective Last 24 Hour Vital Signs Date Time Temp Pulse Resp B/P (MAP) Pulse Ox O2 Delivery O2 Flow Rate FiO2 12/15/18 08:00 Mechanical Ventilator 12/15/18 08:00 98.6 72 22 117/57 (77) 100 12/15/18 08:00 30 12/15/18 07:00 70 23 117/57 (77) 100 12/15/18 06:00 66 18 108/32 (57) 99 12/15/18 05:29 68 16 30 12/15/18 05:24 97.3 12/15/18 05:00 68 22 124/57 (79) 98 12/15/18 04:00 70 12/15/18 04:00 Mechanical Ventilator 12/15/18 04:00 30 12/15/18 04:00 97.3 68 28 117/57 (77) 100 12/15/18 03:08 75 19 30 12/15/18 03:00 69 26 117/57 (77) 100 12/15/18 02:00 69 31 120/57 (78) 100 12/15/18 01:20 72 23 30 12/15/18 01:00 68 26 125/53 (77) 100 12/15/18 00:00 97.3 70 28 118/41 (66) 100 12/15/18 00:00 Mechanical Ventilator 12/15/18 00:00 30 12/15/18 00:00 70 12/14/18 23:00 73 16 120/46 (70) 100 12/14/18 22:58 75 17 30 12/14/18 22:00 77 27 133/56 (81) 100 12/14/18 21:00 73 29 120/51 (74) 100 12/14/18 20:51 75 16 30 12/14/18 20:00 30 12/14/18 20:00 Mechanical Ventilator 12/14/18 20:00 73 12/14/18 20:00 74 16 134/67 (89) 100 12/14/18 19:05 68 16 30 12/14/18 19:00 97.5 70 22 155/52 (86) 99 12/14/18 18:00 72 20 137/52 (80) 100 12/14/18 17:15 73 16 30 12/14/18 17:00 73 20 138/61 (86) 100 12/14/18 16:00 Mechanical Ventilator 12/14/18 16:00 75 12/14/18 16:00 99.1 73 20 97/43 (61) 100 12/14/18 16:00 30 12/14/18 15:29 70 16 30 12/14/18 15:00 70 20 92/38 (56) 100 12/14/18 14:00 69 20 125/45 (71) 100 12/14/18 13:14 69 16 30 12/14/18 13:00 98.8 70 20 102/39 (60) 100 12/14/18 12:00 Mechanical Ventilator 12/14/18 12:00 30 12/14/18 12:00 70 20 94/42 (59) 100 12/14/18 12:00 71 12/14/18 11:26 71 16 30 12/14/18 10:00 71 20 112/34 (60) 100 Status: awake Condition: critical HEENT: atraumatic Lungs: rales, rhonchi Heart: HR/BP stable, HR/BP unstable Abdomen: soft, active bowel sounds, feeding tube Extremities: edema Accucheck: 88 Critical Care - Subjective ROS Limited/Unobtainable: Yes Interval Events: paracentesis done, yesterday, 6 liters removed Condition: critical FI02: 30 Vent Support Breath Rate: 16 Vent Support Mode: AC Vent Tidal Volume: 600 Sputum Amount: Scant PEEP: 5.0 PIP: 29 Tube Feeding Amount: 20 I&O: Intake and Output 12/14/18 12/15/18 19:00 07:00 Intake Total 765 ml 280 ml Output Total 0 ml 0 ml Balance 765 ml 280 ml Free Water 285 ml 100 ml IV Total 100 ml Tube Feeding 480 ml 80 ml Output Urine Total 0 ml 0 ml # Bowel Movements 1 CXR: no change ET-Tube: 7.5 ET Position: 23 Labs: Laboratory Tests Test 12/14/18 10:20 12/14/18 14:40 Arterial Blood pH 7.453 (7.350-7.450) Arterial Blood Partial Pressure CO2 30.0 mmHg (35.0-45.0) L Arterial Blood Partial Pressure O2 74.7 mmHg (75.0-100.0) L Arterial Blood HCO3 20.5 mmol/L (22.0-26.0) L Arterial Blood Oxygen Saturation 94.3 % (95-100) L Arterial Blood Base Excess -2.5 (-2-2) L Jose Test Positive Body Fluid Glucose Pending Body Fluid Total Protein Pending Tamia Lerma MD Dec 15, 2018 09:14
--- NOTE | 2018-12-15 09:29 | Diagnostic Imaging Report ---
EXAM: XR Chest, 1 View CLINICAL HISTORY: DYSPNEA TECHNIQUE: Frontal view of the chest. COMPARISON: Chest x-ray 12/14/18 735 FINDINGS: Lungs: Bilateral interstitial airspace opacities are similar to slightly improved from prior study. Pleural space: Likely small right pleural effusion. No pneumothorax. Heart: Unremarkable. No cardiomegaly. Mediastinum: Unremarkable. Bones/joints: Unremarkable. Vasculature: Right innominate artery stents. Tubes, lines and devices: Tracheostomy tube 4 cm above the akhil. Nasogastric tube traverses diaphragm, tip in the stomach. IMPRESSION: 1. Bilateral interstitial airspace opacities are similar to slightly improved from prior study. 2. Likely small right pleural effusion.
--- NOTE | 2018-12-15 09:30 | NUR ---
NURSE NOTES: Patient VS stable at this time with no sign of acute distress. Patient denies pain at this time.
[2018-12-15] MEDS: Renvela 800mg Pkt NG SCH ×3 (09:47→18:51)
[2018-12-15] MEDS: Docusate 100mg/10ml Liq NG SCH (09:47)
[2018-12-15] MEDS: Pyridoxine 50mg tab NG SCH (09:48)
--- NOTE | 2018-12-15 11:30 | NUR ---
NURSE NOTES: Patient VS stable at this time with no sign of acute distress. Patient denies pain.
--- NOTE | 2018-12-15 12:05 | Cardiology Progress Note ---
Assessment/Plan Status: stable Assessment/Plan Assessment/Plan Status: stable Assessment/Plan Assessment: DM ESRD BKA PVD Pressure ulcer ESBL UTI Anemia Hypertension CHF COPD G tube Elevated troponin/NSTEMI Plan: Troponin down trending, multifactorial: ESRD, infection, sepsis, demand ischemia Echocardiogram pending Patient hemodynamically stable otherwise Continue abx maintain HD Hold heparin Weaning trials CV stable Outpatient stress test when stable Subjective Cardiovascular: Reports: no symptoms Respiratory: Reports: no symptoms Gastrointestinal/Abdominal: Reports: no symptoms Genitourinary: Reports: no symptoms Subjective No acute events, vitals stable, WBC elevated, family at bedside, remains intubated but responsive, s/p paracentesis yesterday, Echo pending Objective Last 24 Hour Vital Signs Date Time Temp Pulse Resp B/P (MAP) Pulse Ox O2 Delivery O2 Flow Rate FiO2 12/15/18 09:10 68 16 30 12/15/18 08:00 Mechanical Ventilator 12/15/18 08:00 98.6 72 22 117/57 (77) 100 12/15/18 08:00 30 12/15/18 07:38 71 17 30 12/15/18 07:00 70 23 117/57 (77) 100 12/15/18 06:00 66 18 108/32 (57) 99 12/15/18 05:29 68 16 30 12/15/18 05:24 97.3 12/15/18 05:00 68 22 124/57 (79) 98 12/15/18 04:00 70 12/15/18 04:00 Mechanical Ventilator 12/15/18 04:00 30 12/15/18 04:00 97.3 68 28 117/57 (77) 100 12/15/18 03:08 75 19 30 12/15/18 03:00 69 26 117/57 (77) 100 12/15/18 02:00 69 31 120/57 (78) 100 12/15/18 01:20 72 23 30 12/15/18 01:00 68 26 125/53 (77) 100 12/15/18 00:00 97.3 70 28 118/41 (66) 100 12/15/18 00:00 Mechanical Ventilator 12/15/18 00:00 30 12/15/18 00:00 70 12/14/18 23:00 73 16 120/46 (70) 100 12/14/18 22:58 75 17 30 12/14/18 22:00 77 27 133/56 (81) 100 12/14/18 21:00 73 29 120/51 (74) 100 12/14/18 20:51 75 16 30 12/14/18 20:00 30 12/14/18 20:00 Mechanical Ventilator 12/14/18 20:00 73 12/14/18 20:00 74 16 134/67 (89) 100 12/14/18 19:05 68 16 30 12/14/18 19:00 97.5 70 22 155/52 (86) 99 12/14/18 18:00 72 20 137/52 (80) 100 12/14/18 17:15 73 16 30 12/14/18 17:00 73 20 138/61 (86) 100 12/14/18 16:00 Mechanical Ventilator 12/14/18 16:00 75 12/14/18 16:00 99.1 73 20 97/43 (61) 100 12/14/18 16:00 30 12/14/18 15:29 70 16 30 12/14/18 15:00 70 20 92/38 (56) 100 12/14/18 14:00 69 20 125/45 (71) 100 12/14/18 13:14 69 16 30 12/14/18 13:00 98.8 70 20 102/39 (60) 100 General Appearance: no apparent distress, alert, on vent EENT: PERRL/EOMI, normal ENT inspection, TMs normal Neck: non-tender, normal alignment, supple, normal inspection, no JVD Rhythm: NSR Cardiovascular: normal peripheral pulses, normal rate, regular rhythm Respiratory/Chest: chest wall non-tender, decreased breath sounds Abdomen: decreased bowel sounds, distended, tender Extremities: normal range of motion, non-tender Neurologic: snake charmer II-XII grossly normal, no motor/sensory deficits Intake and Output 12/14/18 12/15/18 19:00 07:00 Intake Total 765 ml 280 ml Output Total 0 ml 0 ml Balance 765 ml 280 ml Free Water 285 ml 100 ml IV Total 100 ml Tube Feeding 480 ml 80 ml Output Urine Total 0 ml 0 ml # Bowel Movements 1 Laboratory Tests Test 12/14/18 14:40 Body Fluid Glucose 80 mg/dL (.) Body Fluid Total Protein 3.8 g/dL (.) Kash Brantley MD Dec 15, 2018 12:05
--- NOTE | 2018-12-15 13:00 | NUR ---
NURSE NOTES: Patient blood sugar 54 at this time. Will give patient Dextrose 50% as ordered and reassess in 15 min.
--- NOTE | 2018-12-15 14:00 | NUR ---
NURSE NOTES: Blood sugar now 121
--- NOTE | 2018-12-15 14:06 | NUR ---
NURSE NOTES: Patient continues to refuse lab draw at this time. I explained to the patient why the labs are important. He still refuses.
[2018-12-15] MEDS ORDERED: Tubing IV Blood Pump IV ONE (14:49)
[2018-12-15] MEDS ORDERED: NS 275ml ONE (14:49)
[2018-12-15] MEDS ORDERED: Tubing IV Secondary IV ONE (14:49)
--- NOTE | 2018-12-15 14:59 | General Progress Note ---
Assessment/Plan Assessment/Plan ASSESSMENT/RECS: # Leukocytosis/Elevated white blood cell count, unspecified likely related to underlying stress reaction, smoking, or underlying infection (especially if bandemia is noted) --> have reviewed peripheral smear and bandemia/neutrophilia noted --> esr and crp elevated on prior labs --> continue on meropenem and vancomycin started by ID team --> monitor for resolution 28k-->21k-->24-->21k-->24-->25-->24k-->24k --> flow cytometry reviewed and is negative for abnormal clonal population of cells # Anemia of chronic disease due to underlying chronic medical issues, multifactorial --> Anemia workup has been reviewed, Ferritin 1678 --> No evidence of hemolysis is noted, peripheral smear has been reviewed. --> Hgb goal >7. Transfuse prn. --> Epogen or iron at this time is not particularly indicated --> Medications have been reviewed --> trend hgb 11 # Thrombocytopenia is due to sepsis --> trending down currently 102k # Coagulopathy with elevated inr --> consider repeat in one week --> obtain a mixing study if pTT rises any further # Sepsis, elevated white count --> on meropenem and vancomycin, as per id --> appreciate ID recs # End-stage renal disease on hemodialysis --> appreciate nephro recs --> hd as needed # R foot infection vs UTI vs PNA --> appreciate ID recs --> right AKA 12/11/18 # Acute hypercapnic respiratory failure --> intubated --> appreciate pulm recs # Intubated The timing of this note does not necessarily reflect the time of the patient was seen. Greatly appreciate consultation! Subjective Constitutional: Denies: no symptoms, chills, diaphoresis, fever, malaise, weakness, other HEENT: Denies: no symptoms, eye pain, blurred vision, tearing, double vision, ear pain, ear discharge, nose pain, nose congestion, throat pain, throat swelling, mouth pain, mouth swelling, other Gastrointestinal/Abdominal: Denies: no symptoms, abdomen distended, abdominal pain, black stools, tarry stools, blood in stool, constipated, diarrhea, difficulty swallowing, nausea, poor appetite, poor fluid intake, rectal bleeding , vomiting, other Genitourinary: Denies: no symptoms, burning, discharge, frequency, flank pain, hematuria, incontinence, pain, urgency, other Neurologic/Psychiatric: Denies: no symptoms, anxiety, depressed, emotional problems, headache, numbness, paresthesia, pre-existing deficit, seizure, tingling, tremors, weakness, other Endocrine: Denies: no symptoms, excessive sweating, flushing, intolerance to cold, intolerance to heat, increased hunger, increased thirst, increased urine, unexplained weight gain, unexplained weight loss, other Hematologic/Lymphatic: Denies: no symptoms, anemia, easy bleeding, easy bruising, other Allergies: Coded Allergies: PENICILLINS (Unverified Allergy, Mild, 12/05/18) PHENYTOIN (Verified Allergy, Unknown, 10/17/18) Uncoded Allergies: PENICILLIN (Allergy, Mild, 11/17/18) Subjective 12/07: seen by bedside, leukocytosis trending up at 24, on abx, hgb 7.6, no events 12/09: Pt is resting in bed, wbc remains elevated, 12/10: on abx, wbc is better, anemia panel reviewed, getting hd 12/11: Pt is s/p code blue, pt intubated and transferred to ICU, right AKA schedule today. wbc elevated at 24 12/12: seen by bedside, appears weak and lethargic , failed weaning, wbc elevated. 12/13: remains intubated, cards consulted, on vent, not alert 12/14: labs have been reviewed, on abx, plt lower 12/15: refusing blood sugar and they have been re-ordered Objective Last 24 Hour Vital Signs Date Time Temp Pulse Resp B/P (MAP) Pulse Ox O2 Delivery O2 Flow Rate FiO2 12/15/18 12:53 72 18 30 12/15/18 11:10 68 16 30 12/15/18 11:10 99 12/15/18 09:10 68 16 30 12/15/18 08:00 Mechanical Ventilator 12/15/18 08:00 98.6 72 22 117/57 (77) 100 12/15/18 08:00 30 12/15/18 07:38 71 17 30 12/15/18 07:00 70 23 117/57 (77) 100 12/15/18 06:00 66 18 108/32 (57) 99 12/15/18 05:29 68 16 30 12/15/18 05:24 97.3 12/15/18 05:00 68 22 124/57 (79) 98 12/15/18 04:00 70 12/15/18 04:00 Mechanical Ventilator 12/15/18 04:00 30 12/15/18 04:00 97.3 68 28 117/57 (77) 100 12/15/18 03:08 75 19 30 12/15/18 03:00 69 26 117/57 (77) 100 12/15/18 02:00 69 31 120/57 (78) 100 12/15/18 01:20 72 23 30 12/15/18 01:00 68 26 125/53 (77) 100 12/15/18 00:00 97.3 70 28 118/41 (66) 100 12/15/18 00:00 Mechanical Ventilator 12/15/18 00:00 30 12/15/18 00:00 70 12/14/18 23:00 73 16 120/46 (70) 100 12/14/18 22:58 75 17 30 12/14/18 22:00 77 27 133/56 (81) 100 12/14/18 21:00 73 29 120/51 (74) 100 12/14/18 20:51 75 16 30 12/14/18 20:00 30 12/14/18 20:00 Mechanical Ventilator 12/14/18 20:00 73 12/14/18 20:00 74 16 134/67 (89) 100 12/14/18 19:05 68 16 30 12/14/18 19:00 97.5 70 22 155/52 (86) 99 12/14/18 18:00 72 20 137/52 (80) 100 12/14/18 17:15 73 16 30 12/14/18 17:00 73 20 138/61 (86) 100 12/14/18 16:00 Mechanical Ventilator 12/14/18 16:00 75 12/14/18 16:00 99.1 73 20 97/43 (61) 100 12/14/18 16:00 30 12/14/18 15:29 70 16 30 12/14/18 15:00 70 20 92/38 (56) 100 Intake and Output 12/14/18 12/15/18 19:00 07:00 Intake Total 765 ml 280 ml Output Total 0 ml 0 ml Balance 765 ml 280 ml Free Water 285 ml 100 ml IV Total 100 ml Tube Feeding 480 ml 80 ml Output Urine Total 0 ml 0 ml # Bowel Movements 1 Height (Feet): 5 Height (Inches): 4.00 Weight (Pounds): 125 Objective VITAL SIGNS: Reviewed ++ intubated GENERAL: Alert and responsive No significant shortness of breath noted. HEAD AND NECK: Oral examination, no thrush. Neck is supple. No JVD. HEART: Regular. No gallop or murmur. ABDOMEN: Soft. Positive bowel sounds. Nt, no ogm LUNGS: Few bilateral rhonchi. No definite rales on exam. Decreased breath sounds, Intubated++ SKIN: No rash. Wounds were reviewed. Extremities: right AKA as well as L Vadim Sandhu MD Dec 15, 2018 14:59
--- NOTE | 2018-12-15 17:10 | Infectious Diseases Prog Note ---
Assessment/Plan Assessment/Plan ASSESSMENT AND PLAN: 1. right ankle/foot/leg infected wound/gangrene/necrosis/?ischemia/osteomyelitis , sepsis, esbl e.coli uti, MRSA pneumonia, leukocytosis persists, fungemia risk - s/p right aka, on vent post op - vancomycin and meropenem, diflucan added for fungemia coverage - monitor labs and chest x-ray - monitor leukocytosis - blood cultures ordered - notes reviewed - d/w RN 2. The patient has end-stage renal disease on hemodialysis. He has a shunt. No hemodialysis line. 3. pvd - bilateral leg amputation 4. Anemia, hx uti 5. Elevated creatinine. 6. Renal failure. 7. The patient has history of diabetes. 8. Hypertension. 9. COPD. 10. CHF. 11. Hypertension and diabetes treatment per primary. 12. Allergies to penicillin and phenytoin, tolerates meropenem. 13. Social history is negative for smoking, alcohol, or drug abuse. 14. Family history is noncontributory. 15. MAR was noted. 16. Case discussed with RN. 17. Continue treatment per primary consultants. 18. Case communicated with Dr. Frieda Clay. 19. Orders were noted and entered. 20. Continue treatment per primary consultants. 21. mrsa and vre colonization Subjective Constitutional: Reports: fatigue, other - on vent, no pressors ; Denies: fever HEENT: Reports: congestion Respiratory: Reports: shortness of breath Cardiovascular: Reports: other - no pressors ; Denies: chest pain Gastrointestinal/Abdominal: Denies: nausea, vomiting, diarrhea Genitourinary: Reports: other - no negro, + hd Neurologic: Reports: weakness, other - alert Psychiatric: Reports: other - na Skin: Denies: rash Hematologic: Denies: bleeding Musculoskeletal: Reports: pain - controlled Allergies: Coded Allergies: PENICILLINS (Unverified Allergy, Mild, 12/05/18) PHENYTOIN (Verified Allergy, Unknown, 10/17/18) Uncoded Allergies: PENICILLIN (Allergy, Mild, 11/17/18) Objective Vital Signs Last 24 Hour Vital Signs Date Time Temp Pulse Resp B/P (MAP) Pulse Ox O2 Delivery O2 Flow Rate FiO2 12/15/18 16:00 70 33 122/46 (71) 100 12/15/18 16:00 73 12/15/18 15:22 71 16 30 12/15/18 15:00 71 34 112/60 (77) 99 12/15/18 14:00 71 27 112/60 (77) 99 12/15/18 13:00 70 20 119/57 (77) 100 12/15/18 12:53 72 18 30 12/15/18 12:00 70 12/15/18 12:00 Mechanical Ventilator 12/15/18 12:00 98.8 70 24 124/54 (77) 100 12/15/18 12:00 30 12/15/18 11:10 68 16 30 12/15/18 11:10 99 12/15/18 11:00 70 25 118/49 (72) 100 12/15/18 10:00 70 23 130/52 (78) 100 12/15/18 09:10 68 16 30 12/15/18 09:00 71 21 122/60 (80) 100 12/15/18 08:00 Mechanical Ventilator 12/15/18 08:00 98.6 72 22 117/57 (77) 100 12/15/18 08:00 30 12/15/18 08:00 72 12/15/18 07:38 71 17 30 12/15/18 07:00 70 23 117/57 (77) 100 12/15/18 06:00 66 18 108/32 (57) 99 12/15/18 05:29 68 16 30 12/15/18 05:24 97.3 12/15/18 05:00 68 22 124/57 (79) 98 12/15/18 04:00 70 12/15/18 04:00 Mechanical Ventilator 12/15/18 04:00 30 12/15/18 04:00 97.3 68 28 117/57 (77) 100 12/15/18 03:08 75 19 30 12/15/18 03:00 69 26 117/57 (77) 100 12/15/18 02:00 69 31 120/57 (78) 100 12/15/18 01:20 72 23 30 12/15/18 01:00 68 26 125/53 (77) 100 12/15/18 00:00 97.3 70 28 118/41 (66) 100 12/15/18 00:00 Mechanical Ventilator 12/15/18 00:00 30 12/15/18 00:00 70 12/14/18 23:00 73 16 120/46 (70) 100 12/14/18 22:58 75 17 30 12/14/18 22:00 77 27 133/56 (81) 100 12/14/18 21:00 73 29 120/51 (74) 100 12/14/18 20:51 75 16 30 12/14/18 20:00 30 12/14/18 20:00 Mechanical Ventilator 12/14/18 20:00 73 12/14/18 20:00 74 16 134/67 (89) 100 12/14/18 19:05 68 16 30 12/14/18 19:00 97.5 70 22 155/52 (86) 99 12/14/18 18:00 72 20 137/52 (80) 100 12/14/18 17:15 73 16 30 Height (Feet): 5 Height (Inches): 4.00 Weight (Pounds): 125 General Appearance: other - on vent, alert, no pressors HEENT: normocephalic, atraumatic, anicteric, EOMI, no JVD, other - oral - intubated Respiratory/Chest: crackles/rales, rhonchi - bilaterally Cardiovascular: normal rate, regular rhythm, no gallop/murmur, no JVD Abdomen: normal bowel sounds, soft, non tender, no organomegaly Genitourinary: other - no negro Extremities: other - bilateral leg amputation Skin: no rash 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 Bilateral interstitial and airspace opacities appear similar to the previous study. Right arm and innominate venous stents are again demonstrated. MRI - right ankle - Impression: Marrow edema, suspicious for osteomyelitis, involving the posterior calcaneus, talus, middle and lateral cuneiforms Multiple fluid collections versus very edematous phlegmon, as described. These could represent abscesses Evidence of heel ulceration and marked thinning of the skin, consistent with stated clinical history of ulceration and necrotic wound Chest x-ray - 12/09/18 - COMPARISON: Chest x-ray dated 12/07/18 FINDINGS: Lungs: No significant interval change of bilateral interstitial and airspace opacities. Pleural space: Unremarkable. The costophrenic angles are sharp. No visible pneumothorax. Heart: Unremarkable. No cardiomegaly. Mediastinum: Unremarkable. Bones/joints: Degenerative changes throughout the visualized spine and shoulder joints. Vasculature: Unchanged positioning of the right arm and innominate vein stents. Atherosclerotic calcifications within the aortic arch. Tubes, lines and devices: Stable positioning of the NG tube. Telemetry leads overlie the thorax. IMPRESSION: No significant interval change of bilateral interstitial and airspace opacities. Chest x-ray - 12/11/18 - Procedure: XRAY Chest x-ray Comparison: 12/09/2018 A single view chest radiograph was obtained. Findings: Endotracheal tube is just above the akhil in good position. Patchy interstitial densities demonstrated. NG tube noted. SVC stent and other stents in the right upper arm demonstrated. Heart is enlarged. Bones are osteopenic. Chest x-ray - 12/13/18 - IMPRESSION: A single view chest radiograph was obtained. Findings: Slightly heterogeneous interstitial disease noted probably on the basis of heart failure. Correlate clinically. Tubes and lines are stable. IMPRESSION: Suspected mild CHF/interstitial edema. Chest x-ray - 12/15/18 - IMPRESSION: 1. Bilateral interstitial airspace opacities are similar to slightly improved from prior study. 2. Likely small right pleural effusion. Microbiology Date/Time Source Procedure Growth Status 12/05/18 01:43 Blood Blood Culture - Final NO GROWTH AFTER 5 DAYS Complete 12/05/18 15:00 Sputum Gram Stain - Final Complete 12/05/18 15:00 Sputum Culture - Final Staphylococcus Aureus - Mrsa Cynthia Albicans Complete 12/09/18 12:30 Stool Clostridium difficile Toxin Assay - Final Complete 12/05/18 11:30 Urine,Clean Catch Urine Culture - Final Escherichia Coli - Esbl Complete 12/04/18 20:55 Rectum VRE Culture - Final Enterococcus Faecium - Vre Complete Labs Test 12/12/18 19:50 12/13/18 02:00 12/13/18 05:00 12/13/18 07:55 Troponin I 0.582 ng/mL (0.000-0.056) 0.601 ng/mL (0.000-0.056) 0.568 ng/mL (0.000-0.056) White Blood Count 24.2 K/UL (4.8-10.8) Red Blood Count 2.88 M/UL (4.70-6.10) Hemoglobin 9.4 G/DL (14.2-18.0) Hematocrit 28.0 % (42.0-52.0) Mean Corpuscular Volume 97 FL (80-99) Mean Corpuscular Hemoglobin 32.6 PG (27.0-31.0) Mean Corpuscular Hemoglobin Concent 33.5 G/DL (32.0-36.0) Red Cell Distribution Width 17.9 % (11.6-14.8) Platelet Count 108 K/UL (150-450) Mean Platelet Volume 9.3 FL (6.5-10.1) Neutrophils (%) (Auto) % (45.0-75.0) Lymphocytes (%) (Auto) % (20.0-45.0) Monocytes (%) (Auto) % (1.0-10.0) Eosinophils (%) (Auto) % (0.0-3.0) Basophils (%) (Auto) % (0.0-2.0) Differential Total Cells Counted 100 Neutrophils % (Manual) 91 % (45-75) Lymphocytes % (Manual) 4 % (20-45) Monocytes % (Manual) 5 % (1-10) Eosinophils % (Manual) 0 % (0-3) Basophils % (Manual) 0 % (0-2) Band Neutrophils 0 % (0-8) Platelet Estimate Decreased Platelet Morphology Normal Anisocytosis 1+ Macrocytosis 1+ Target Cells 1+ Sodium Level 132 MMOL/L (136-145) Potassium Level 3.9 MMOL/L (3.5-5.1) Chloride Level 98 MMOL/L (98-107) Carbon Dioxide Level 19 MMOL/L (21-32) Anion Gap 15 mmol/L (5-15) Blood Urea Nitrogen 81 mg/dL (7-18) Creatinine 4.1 MG/DL (0.55-1.30) Estimat Glomerular Filtration Rate 14.7 mL/min (>60) Glucose Level 112 MG/DL (74-106) Calcium Level 8.6 MG/DL (8.5-10.1) Phosphorus Level 3.3 MG/DL (2.5-4.9) Magnesium Level 1.9 MG/DL (1.8-2.4) Total Bilirubin 2.7 MG/DL (0.2-1.0) Direct Bilirubin 1.9 MG/DL (0.0-0.3) Aspartate Amino Transf (AST/SGOT) 34 U/L (15-37) Alanine Aminotransferase (ALT/SGPT) 8 U/L (12-78) Alkaline Phosphatase 234 U/L (46-116) Pro-B-Type Natriuretic Peptide > 11997 pg/mL (0-125) Total Protein 6.4 G/DL (6.4-8.2) Albumin 1.5 G/DL (3.4-5.0) Globulin 4.9 g/dL Albumin/Globulin Ratio 0.3 (1.0-2.7) Random Vancomycin Level 27.0 ug/mL Test 12/13/18 08:45 12/14/18 03:40 12/14/18 10:20 12/14/18 14:40 Arterial Blood pH 7.479 (7.350-7.450) 7.453 (7.350-7.450) Arterial Blood Partial Pressure CO2 28.4 mmHg (35.0-45.0) 30.0 mmHg (35.0-45.0) Arterial Blood Partial Pressure O2 68.7 mmHg (75.0-100.0) 74.7 mmHg (75.0-100.0) Arterial Blood HCO3 20.6 mmol/L (22.0-26.0) 20.5 mmol/L (22.0-26.0) Arterial Blood Oxygen Saturation 93.8 % (95-100) 94.3 % (95-100) Arterial Blood Base Excess -1.9 (-2-2) -2.5 (-2-2) Jose Test Positive Positive White Blood Count 23.8 K/UL (4.8-10.8) Red Blood Count 3.36 M/UL (4.70-6.10) Hemoglobin 10.6 G/DL (14.2-18.0) Hematocrit 32.1 % (42.0-52.0) Mean Corpuscular Volume 96 FL (80-99) Mean Corpuscular Hemoglobin 31.6 PG (27.0-31.0) Mean Corpuscular Hemoglobin Concent 33.1 G/DL (32.0-36.0) Red Cell Distribution Width 17.4 % (11.6-14.8) Platelet Count 102 K/UL (150-450) Mean Platelet Volume 11.7 FL (6.5-10.1) Neutrophils (%) (Auto) % (45.0-75.0) Lymphocytes (%) (Auto) % (20.0-45.0) Monocytes (%) (Auto) % (1.0-10.0) Eosinophils (%) (Auto) % (0.0-3.0) Basophils (%) (Auto) % (0.0-2.0) Differential Total Cells Counted 100 Neutrophils % (Manual) 88 % (45-75) Lymphocytes % (Manual) 5 % (20-45) Monocytes % (Manual) 5 % (1-10) Eosinophils % (Manual) 1 % (0-3) Basophils % (Manual) 1 % (0-2) Band Neutrophils 0 % (0-8) Platelet Estimate Decreased Platelet Morphology Normal Hypochromasia 1+ Anisocytosis 1+ Sodium Level 134 MMOL/L (136-145) Potassium Level 4.1 MMOL/L (3.5-5.1) Chloride Level 99 MMOL/L (98-107) Carbon Dioxide Level 21 MMOL/L (21-32) Anion Gap 14 mmol/L (5-15) Blood Urea Nitrogen 97 mg/dL (7-18) Creatinine 4.5 MG/DL (0.55-1.30) Estimat Glomerular Filtration Rate 13.2 mL/min (>60) Glucose Level 57 MG/DL (74-106) Uric Acid 7.1 MG/DL (2.6-7.2) Calcium Level 8.4 MG/DL (8.5-10.1) Phosphorus Level 3.7 MG/DL (2.5-4.9) Magnesium Level 2.0 MG/DL (1.8-2.4) Total Bilirubin 2.8 MG/DL (0.2-1.0) Direct Bilirubin 2.1 MG/DL (0.0-0.3) Aspartate Amino Transf (AST/SGOT) 32 U/L (15-37) Alanine Aminotransferase (ALT/SGPT) < 6 U/L (12-78) Alkaline Phosphatase 283 U/L (46-116) Pro-B-Type Natriuretic Peptide > 35554 pg/mL (0-125) Total Protein 6.5 G/DL (6.4-8.2) Albumin 1.3 G/DL (3.4-5.0) Globulin 5.2 g/dL Albumin/Globulin Ratio 0.2 (1.0-2.7) Body Fluid Glucose 80 mg/dL (.) Body Fluid Total Protein 3.8 g/dL (.) Current Medications Medications (Trade) Dose Ordered Sig/Ronald Route PRN Reason Start Time Stop Time Status Last Admin Dose Admin Artificial Tears (Akwa-Tears) 1 drop QIDPRN PRN BOTH EYES dry eyes 12/15/18 13:15 01/14/19 13:14 Dextrose (Dextrose 50%) 25 ml Q30M PRN IV Hypoglycemia 12/11/18 02:45 01/03/19 22:44 12/11/18 06:23 Dextrose (Dextrose 50%) 50 ml Q30M PRN IV Hypoglycemia 12/11/18 02:45 01/03/19 22:44 12/15/18 13:25 Docusate Sodium (Colace) 200 mg DAILY NG 12/11/18 09:00 01/10/19 08:59 12/15/18 09:47 Fluconazole/ Sodium Chloride 100 ml @ 100 mls/hr Q48H IVPB 12/14/18 23:45 12/21/18 23:44 12/15/18 00:16 Hydromorphone HCl (Dilaudid) 0.5 mg Q4H PRN IVP For Pain 12/12/18 11:45 12/19/18 11:44 12/15/18 03:54 Lansoprazole (Prevacid) 30 mg BID NG 12/11/18 18:00 01/08/19 08:59 12/15/18 09:47 Lorazepam (Ativan 2mg/ml 1ml) 2 mg Q4H PRN IV For Anxiety 12/11/18 09:00 12/18/18 08:59 Meropenem 500 mg/ Sodium Chloride 55 ml @ 110 mls/hr Q24H IVPB 12/15/18 21:00 12/18/18 20:59 Metoclopramide HCl (Reglan) 5 mg Q8H PRN IVP Nausea & Vomiting 12/11/18 09:00 01/10/19 08:59 12/14/18 20:44 Morphine Sulfate (Morphine Sulfate) 4 mg Q4H PRN IVP SEVERE BREAKTHROUGH PAIN 12/11/18 09:00 12/18/18 08:59 Povidone Iodine (Betadine Maíra) 1 applic QHS TOPIC 12/11/18 21:00 01/05/19 20:59 12/14/18 20:38 Pyridoxine HCl (Vitamin B6) 25 mg DAILY NG 12/11/18 09:00 01/07/19 08:59 12/15/18 09:48 Sevelamer Carbonate (Renvela) 800 mg THREE TIMES A DAY NG 12/11/18 09:00 01/07/19 08:59 12/15/18 13:06 Anshu Munguia MD Dec 15, 2018 17:10
--- NOTE | 2018-12-15 17:11 | Nephrology Progress Note ---
Assessment/Plan Problem List: (1) ESRF (end stage renal failure) (2) Leukocytosis Assessment: sepsis (3) CHF (congestive heart failure) (4) Acute respiratory failure (5) Hyperbilirubinemia (6) Elevated troponin I level Assessment admitted with sepsis and shortness of breath (1) ESRD (end stage renal disease) right arm fistula (2) Possible Fluid overload, unspecified (3) h/o Bradycardia (4) Anemia (5) h/o Pleural effusion (6) Elevated troponin (7) Allergy Dialntin & PCN (8) Elevated Bili Plan refused blood work intubated on Vent HD last 12/10 done, next 12/14 on Meropenem , Vanco- I will dose Vanco IV bolus as needed adjust BP meds 2D Echo 55% EjFx stop beta blockers for low HR hydralazin and procardia as needed reviewe CXR : Pneumonia per consultants Subjective ROS Limited/Unobtainable: Yes Objective Objective Last 24 Hour Vital Signs Date Time Temp Pulse Resp B/P (MAP) Pulse Ox O2 Delivery O2 Flow Rate FiO2 12/15/18 16:00 70 33 122/46 (71) 100 12/15/18 16:00 73 12/15/18 15:22 71 16 30 12/15/18 15:00 71 34 112/60 (77) 99 12/15/18 14:00 71 27 112/60 (77) 99 12/15/18 13:00 70 20 119/57 (77) 100 12/15/18 12:53 72 18 30 12/15/18 12:00 70 12/15/18 12:00 Mechanical Ventilator 12/15/18 12:00 98.8 70 24 124/54 (77) 100 12/15/18 12:00 30 12/15/18 11:10 68 16 30 12/15/18 11:10 99 12/15/18 11:00 70 25 118/49 (72) 100 12/15/18 10:00 70 23 130/52 (78) 100 12/15/18 09:10 68 16 30 12/15/18 09:00 71 21 122/60 (80) 100 12/15/18 08:00 Mechanical Ventilator 12/15/18 08:00 98.6 72 22 117/57 (77) 100 12/15/18 08:00 30 12/15/18 08:00 72 12/15/18 07:38 71 17 30 12/15/18 07:00 70 23 117/57 (77) 100 12/15/18 06:00 66 18 108/32 (57) 99 12/15/18 05:29 68 16 30 12/15/18 05:24 97.3 12/15/18 05:00 68 22 124/57 (79) 98 12/15/18 04:00 70 12/15/18 04:00 Mechanical Ventilator 12/15/18 04:00 30 12/15/18 04:00 97.3 68 28 117/57 (77) 100 12/15/18 03:08 75 19 30 12/15/18 03:00 69 26 117/57 (77) 100 12/15/18 02:00 69 31 120/57 (78) 100 12/15/18 01:20 72 23 30 12/15/18 01:00 68 26 125/53 (77) 100 12/15/18 00:00 97.3 70 28 118/41 (66) 100 12/15/18 00:00 Mechanical Ventilator 12/15/18 00:00 30 12/15/18 00:00 70 12/14/18 23:00 73 16 120/46 (70) 100 12/14/18 22:58 75 17 30 12/14/18 22:00 77 27 133/56 (81) 100 12/14/18 21:00 73 29 120/51 (74) 100 12/14/18 20:51 75 16 30 12/14/18 20:00 30 12/14/18 20:00 Mechanical Ventilator 12/14/18 20:00 73 12/14/18 20:00 74 16 134/67 (89) 100 12/14/18 19:05 68 16 30 12/14/18 19:00 97.5 70 22 155/52 (86) 99 12/14/18 18:00 72 20 137/52 (80) 100 12/14/18 17:15 73 16 30 Intake and Output 12/14/18 12/15/18 18:59 06:59 Intake Total 715 ml 350 ml Output Total 0 ml 0 ml Balance 715 ml 350 ml Free Water 235 ml 150 ml IV Total 100 ml Tube Feeding 480 ml 100 ml Output Urine Total 0 ml 0 ml # Bowel Movements 1 Height (Feet): 5 Height (Inches): 4.00 Weight (Pounds): 125 General Appearance: no apparent distress EENT: other - on Vent Cardiovascular: normal rate Respiratory/Chest: decreased breath sounds Abdomen: distended Objective no change Alessandro Price MD Dec 15, 2018 17:11
--- NOTE | 2018-12-15 17:39 | General Progress Note ---
Assessment/Plan Assessment/Plan Assessment/Plan Problem List: (1) S/P BKA (below knee amputation) ICD Codes: Z89.519 - Acquired absence of unspecified leg below knee SNOMED: 47805031, 707583299 (2) Hx of BKA ICD Codes: Z89.519 - Acquired absence of unspecified leg below knee SNOMED: 860706519, 410417109 (3) Severe sepsis ICD Codes: A41.9 - Sepsis, unspecified organism; R65.20 - Severe sepsis without septic shock SNOMED: 81486050 (4) Diabetes mellitus ICD Codes: E11.9 - Type 2 diabetes mellitus without complications SNOMED: 72625486 (5) ESRF (end stage renal failure) ICD Codes: N18.6 - End stage renal disease SNOMED: 69732825 (6) Leukocytosis ICD Codes: D72.829 - Elevated white blood cell count, unspecified SNOMED: 229236000, 868488524 (7) CHF (congestive heart failure) ICD Codes: I50.9 - Heart failure, unspecified SNOMED: 73917023 (8) Anemia ICD Codes: D64.9 - Anemia, unspecified Assessment/Plan Elevated residuals Dysphasia G-tube Macrocytic anemia Diarrhea - C Difff (-) C. difficile, negative Occult blood stool positive Elevated LFTs KUB negative G-tube feedings, Reglan 5 mg ATC Monitor H&H, PRN transfusions PPI Trend LFTs, s/p amputation persistent leukocytosis>>> fu ID pending possible paracentesis pending HD for today Subjective Allergies: Coded Allergies: PENICILLINS (Unverified Allergy, Mild, 12/05/18) PHENYTOIN (Verified Allergy, Unknown, 10/17/18) Uncoded Allergies: PENICILLIN (Allergy, Mild, 11/17/18) Subjective Above noted Seen in ICU family at bedside awake on TF Objective Last 24 Hour Vital Signs Date Time Temp Pulse Resp B/P (MAP) Pulse Ox O2 Delivery O2 Flow Rate FiO2 12/15/18 17:20 73 20 30 12/15/18 16:00 70 33 122/46 (71) 100 12/15/18 16:00 73 12/15/18 15:22 71 16 30 12/15/18 15:00 71 34 112/60 (77) 99 12/15/18 14:00 71 27 112/60 (77) 99 12/15/18 13:00 70 20 119/57 (77) 100 12/15/18 12:53 72 18 30 12/15/18 12:00 70 12/15/18 12:00 Mechanical Ventilator 12/15/18 12:00 98.8 70 24 124/54 (77) 100 12/15/18 12:00 30 12/15/18 11:10 68 16 30 12/15/18 11:10 99 12/15/18 11:00 70 25 118/49 (72) 100 12/15/18 10:00 70 23 130/52 (78) 100 12/15/18 09:10 68 16 30 12/15/18 09:00 71 21 122/60 (80) 100 12/15/18 08:00 Mechanical Ventilator 12/15/18 08:00 98.6 72 22 117/57 (77) 100 12/15/18 08:00 30 12/15/18 08:00 72 12/15/18 07:38 71 17 30 12/15/18 07:00 70 23 117/57 (77) 100 12/15/18 06:00 66 18 108/32 (57) 99 12/15/18 05:29 68 16 30 12/15/18 05:24 97.3 12/15/18 05:00 68 22 124/57 (79) 98 12/15/18 04:00 70 12/15/18 04:00 Mechanical Ventilator 12/15/18 04:00 30 12/15/18 04:00 97.3 68 28 117/57 (77) 100 12/15/18 03:08 75 19 30 12/15/18 03:00 69 26 117/57 (77) 100 12/15/18 02:00 69 31 120/57 (78) 100 12/15/18 01:20 72 23 30 12/15/18 01:00 68 26 125/53 (77) 100 12/15/18 00:00 97.3 70 28 118/41 (66) 100 12/15/18 00:00 Mechanical Ventilator 12/15/18 00:00 30 12/15/18 00:00 70 12/14/18 23:00 73 16 120/46 (70) 100 12/14/18 22:58 75 17 30 12/14/18 22:00 77 27 133/56 (81) 100 12/14/18 21:00 73 29 120/51 (74) 100 12/14/18 20:51 75 16 30 12/14/18 20:00 30 12/14/18 20:00 Mechanical Ventilator 12/14/18 20:00 73 12/14/18 20:00 74 16 134/67 (89) 100 12/14/18 19:05 68 16 30 12/14/18 19:00 97.5 70 22 155/52 (86) 99 12/14/18 18:00 72 20 137/52 (80) 100 Intake and Output 12/14/18 12/15/18 19:00 07:00 Intake Total 765 ml 280 ml Output Total 0 ml 0 ml Balance 765 ml 280 ml Free Water 285 ml 100 ml IV Total 100 ml Tube Feeding 480 ml 80 ml Output Urine Total 0 ml 0 ml # Bowel Movements 1 Height (Feet): 5 Height (Inches): 4.00 Weight (Pounds): 125 Objective Thin man NCAT, (+) ETT and NGT supple CTA RR abd soft (L) BKA, (R) Moises Lester MD Dec 15, 2018 17:39
--- NOTE | 2018-12-15 18:19 | NUR ---
NURSE NOTES: Patient's sister reported that the patient would like to be allowed to pass naturally. Patient's sister speaks cypriot only, so translation was provided by a Faroese speaking RN. Patient's sister reported that the patient is suffering and does not want any more medical interventions done. The cypriot speaking RN and myself discussed with the patient whether he wished to change his code status. The patient was told in japanese and cypriot what each part of the POLST meant and was asked what his wishes were. The patient reported that he does not want any medical intervention. He would like comfort care only. This was documented on a POLST form and the patient consented to have his sister sign for him. The Patient's POLST was signed by the patient's sister. Everything was explained to both the sister and the patient. Dr Miller and Dr Lerma have been notified. Awaiting order for change of code status at this time.
--- NOTE | 2018-12-15 18:45 | NUR ---
NURSE NOTES: Patient blood sugar is 66 at this time. Will administer D 50% 25mL at this time and reassess in 15 min.
--- NOTE | 2018-12-15 19:00 | NUR ---
NURSE NOTES: Dextrose 50% administered.
--- NOTE | 2018-12-15 19:15 | NUR ---
HAND-OFF: Report given to SONG Bourgeois. Patient VS stable at this time with no sign of acute distress. Patient's code status has been changed. Endorsed to follow up with MD tomorrow to sign POLST. Patient wishes to be extubated. No order has been placed for extubation at this time. Patient acknowledges that he will have to wait for the doctors to come tomorrow. Patient blood sugar needs to be rechecked at this time. Endorsed to follow up.
--- NOTE | 2018-12-15 19:16 | NUR ---
NURSE NOTES: Endorsement received from Joan Timmons RN. Patient opens eyes spontaneously. Follows simple commands. Able to communicate needs by nodding or shaking head, mouthing of words. Orally intubated with ET 7.5, 23 lipline. AC 16 Vt 600 PEEP 5, 30%. NGT patent and intact. Placement rechecked per auscultation. Nepro 20 ml/hr. Noted with 50ml residual. Right upper arm AV shunt. Bruit and thrill present. Left forearm g 20, left hand g20. Dressing at right lower abdomen dry and intact. Right stump dressing dry and intact. Kept elevated. On P200 mattress. Call light within reach. Bed locked and in low position. Bed alarm on. Will continue to monitor.
--- NOTE | 2018-12-15 19:30 | NUR ---
NURSE NOTES: Blood sugar rechecked: 115mg/dl.
[2018-12-15] MEDS: Artificial Tears 1.4% Op Soln BOTH EYES PRN (19:38)
--- NOTE | 2018-12-15 20:18 | Cardiology Report ---
APPROVED REPORT EXAM: Two-dimensional and M-mode echocardiogram with Doppler and color Doppler. INDICATION Left ventricular function M-Mode DIMENSIONS IVSd1.8 (0.7-1.1cm)Left Atrium (MM)2.9 (1.6-4.0cm) LVDd4.1 (3.5-5.6cm)Aortic Root3.8 (2.0-3.7cm) PWd1.1 (0.7-1.1cm)Aortic Cusp Exc.1.8 (1.5-2.0cm) LVDs2.1 (2.5-4.0cm) PWs1.2 cm Normal left ventricular chamber size, systolic function and wall motion. Left ventricular ejection fraction estimated to be 55-60%. Septal wall inward excursion (D-shaped septum) is reflective of right ventricular pressure and/or volume overload. Mild left ventricular hypertrophy. Anterior Echo-free space, may be due to pericardial fat or effusion. Mild bi-atrial enlargemnt by 2D. Mild right ventricular enlargement with reduced function. Focal aortic valve sclerosis with adequate cusp excursion. Thickened mitral valve leaflets with normal excursion. Mild mitral annulus and aortic root calcification. Pulmonic valve not well visualized. Normal tricuspid valve structure. IVC dilated at 2.0 cm without physiologic collapse, suggestive of increased RA pressure. Left ventricle diastolic septal flattening, suggestive of right ventricle volume overload. A color flow and spectral Doppler study was performed and revealed: No aortic regurgitation. Trace mitral regurgitation. Normal left ventricular diastolic function. Mild tricuspid regurgitation. Tricuspid systolic velocities suggests peak right ventricular systolic pressure of 70 mmHg, consistent with severe pulmonary hypertension. Moderate pulmonic regurgitation present.
[2018-12-15] MEDS: Betadine 4oz Bottle TOPIC SCH (20:45)
[2018-12-15] MEDS: Meropenem 500 MG in NS 55 ML IVPB SCH (20:46)
--- NOTE | 2018-12-15 21:00 | NUR ---
NURSE NOTES: Repositioned patient. Oral care done.
--- NOTE | 2018-12-15 22:33 | General Progress Note ---
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 -Cont A/C rate of 16, Vt 600, FI02 40%, PEEP +5 -Cont vancomycin and meropenen -ABG PRN, titrate vent PRN -Pt with good mental status, CPAP as tolerated -Pulmonary consult noted, will d/w Pulm re oxygen requirements -ID consult noted, cont broad spectrum IV abx -Surgery consult appreciated, rec amputation, -MRI right foot and ankle: +osteomyelitis and fluid collection likely abscess -Vascular and podiatry consult appreciated -daily care per surgery -Cont pain management - monitor BP -s/p R AKA -failed weaning again #Troponemia likely 2/2 type 2 NSTEMI -Trend trop and EKG - unremarkable -cardiology consult appreciated #Leukocytosis likly 2/2 infection -Flow cytometry pending -Hematology consult appreciated #Dysphagia -NG tube placed -tube feeds restarted at 10cc/hr given high residuals advance as tolerated to goal of 40cc/hr -GI consult appreciated -Tolerating feeds, rate at goal #DM now hypoglycemic -hypoglycemia likley 2/2 sepsis -hold antiDM medications -FSG Q6hrs -Currently on min tube feeds -Monitor respiratory status #ESRD on HD (MWF) via R arm fistula #HyperKalemia #HypoNA -no signs of fluid overload -nephrology consult appreciated -CTM electrolytes -HD per renal -Last HD 12/10 #Ascites -s/p paracenthesis 6 removed -s/p albumin Code: Full I spent 75 minutes on this patient's case, and 45 mins was dedicated to critical care Critical Care Services performed include: Telemetry Review Hemodynamic measurement interpretation Laboratory data review and interpretation Radiology image review and interpretation Ventilator setting review, management, and adjustment Interpretation of ABG's Discussion of patient's care with ICU team, ICU Nursing staff and/or consulting services Time of note may not represent time of encounter Subjective Date patient seen: Dec 15, 2018 ROS Limited/Unobtainable: Yes Allergies: Coded Allergies: PENICILLINS (Unverified Allergy, Mild, 12/05/18) PHENYTOIN (Verified Allergy, Unknown, 10/17/18) Uncoded Allergies: PENICILLIN (Allergy, Mild, 11/17/18) Subjective S/P R AKA, BP improved Opens eyes to verbal commands, follows commands, No signs of distress. s/p paracenthesis with ~6 L removed, albumin given Objective Last 24 Hour Vital Signs Date Time Temp Pulse Resp B/P (MAP) Pulse Ox O2 Delivery O2 Flow Rate FiO2 12/15/18 21:00 69 16 30 12/15/18 20:00 30 12/15/18 20:00 Mechanical Ventilator 12/15/18 19:02 70 16 30 12/15/18 19:00 69 19 132/65 (87) 100 12/15/18 18:00 72 22 132/65 (87) 100 12/15/18 17:20 73 20 30 12/15/18 17:00 98.6 75 28 151/78 (102) 100 12/15/18 16:00 70 33 122/46 (71) 100 12/15/18 16:00 Mechanical Ventilator 12/15/18 16:00 73 12/15/18 16:00 30 12/15/18 15:22 71 16 30 12/15/18 15:00 71 34 112/60 (77) 99 12/15/18 14:00 71 27 112/60 (77) 99 12/15/18 13:00 70 20 119/57 (77) 100 12/15/18 12:53 72 18 30 12/15/18 12:00 70 12/15/18 12:00 Mechanical Ventilator 12/15/18 12:00 98.8 70 24 124/54 (77) 100 12/15/18 12:00 30 12/15/18 11:10 68 16 30 12/15/18 11:10 99 12/15/18 11:00 70 25 118/49 (72) 100 12/15/18 10:00 70 23 130/52 (78) 100 12/15/18 09:10 68 16 30 12/15/18 09:00 71 21 122/60 (80) 100 12/15/18 08:00 Mechanical Ventilator 12/15/18 08:00 98.6 72 22 117/57 (77) 100 12/15/18 08:00 30 12/15/18 08:00 72 12/15/18 07:38 71 17 30 12/15/18 07:00 70 23 117/57 (77) 100 12/15/18 06:00 66 18 108/32 (57) 99 12/15/18 05:29 68 16 30 12/15/18 05:24 97.3 12/15/18 05:00 68 22 124/57 (79) 98 12/15/18 04:00 70 12/15/18 04:00 Mechanical Ventilator 12/15/18 04:00 30 12/15/18 04:00 97.3 68 28 117/57 (77) 100 12/15/18 03:08 75 19 30 12/15/18 03:00 69 26 117/57 (77) 100 12/15/18 02:00 69 31 120/57 (78) 100 12/15/18 01:20 72 23 30 12/15/18 01:00 68 26 125/53 (77) 100 12/15/18 00:00 97.3 70 28 118/41 (66) 100 12/15/18 00:00 Mechanical Ventilator 12/15/18 00:00 30 12/15/18 00:00 70 12/14/18 23:00 73 16 120/46 (70) 100 12/14/18 22:58 75 17 30 Intake and Output 12/14/18 12/15/18 18:59 06:59 Intake Total 715 ml 350 ml Output Total 0 ml 0 ml Balance 715 ml 350 ml Free Water 235 ml 150 ml IV Total 100 ml Tube Feeding 480 ml 100 ml Output Urine Total 0 ml 0 ml # Bowel Movements 1 Height (Feet): 5 Height (Inches): 4.00 Weight (Pounds): 125 Objective General: calm, appears stated age, intubated Head: normocephalic, without obvious abnormality, atraumatic Eyes: conjunctivae/corneas clear. PERRL, EOM's intact Throat: lips, mucosa, and tongue normal. MMM Neck: supple, symmetrical, trachea midline, and no JVD Lungs: b/l air entry Heart: regular rate and rhythm, S1, S2 normal, no murmur, click, rub or gallop Abdomen: soft, non-tender, non-distended, bowel sounds normal; no masses or organomegaly Extremities: L BKA, R AKA with dressing CDI Pulses: +1 pulse Skin: skin color, texture, turgor normal; no rashes or lesions Neurologic: grossly normal Frieda Miller MD Dec 15, 2018 22:33
--- NOTE | 2018-12-15 23:00 | NUR ---
NURSE NOTES: No complains of pain at this time. Vital signs stable.
[2018-12-16] VITALS (20 sets, daily range): BP systolic 118–150; BP diastolic 37–91
--- NOTE | 2018-12-16 | NUR ---
NURSE NOTES: Blood sugar checked : 82mg/dl. Patient awake and alert. 10ml residual from the NGT. Feeding increased to 30ml/hr. Kept head of bed elevated.
--- NOTE | 2018-12-16 02:00 | NUR ---
NURSE NOTES: Patient removed his NGT. Also attempting to self extubate. Grasping the anchorfast. Bilateral soft wrist restraints applied. With POLST indicating no artificial means of nutrition including feeding tubes. NGT not reinserted at this time
--- NOTE | 2018-12-16 04:00 | NUR ---
NURSE NOTES: Bed bath, oral care done.
--- NOTE | 2018-12-16 05:30 | NUR ---
NURSE NOTES: Blood sugar checked: 65mg/dl. D50% 25ml given. Will recheck
--- NOTE | 2018-12-16 06:00 | NUR ---
NURSE NOTES: Blood sugar rechecked: 95mg/dl
[2018-12-16 06:02] LABS: HEMATOCRIT 33.9 % (42.0-52.0); MEAN CORPUSCULAR VOLUME 96 FL (80-99); PLATELET COUNT 130 K/UL (150-450); RED BLOOD COUNT 3.51 M/UL (4.70-6.10); WHITE BLOOD COUNT 16.2 K/UL (4.8-10.8)
[2018-12-16 06:21] LABS: ALANINE AMINOTRANSFERASE 7 U/L (12-78); ALBUMIN 1.6 G/DL (3.4-5.0); ALBUMIN/GLOBULIN RATIO 0.3 (1.0-2.7); ALKALINE PHOSPHATASE 216 U/L (46-116); ANION GAP 10 mmol/L (5-15); ASPARTATE AMINO TRANSFERASE 22 U/L (15-37); BILIRUBIN,TOTAL 2.9 MG/DL (0.2-1.0); BLOOD UREA NITROGEN 92 mg/dL (7-18); CALCIUM 8.5 MG/DL (8.5-10.1); CARBON DIOXIDE 24 MMOL/L (21-32); CHLORIDE 100 MMOL/L (98-107); CREATININE 4.3 MG/DL (0.55-1.30); PHOSPHORUS 3.9 MG/DL (2.5-4.9); POTASSIUM 3.8 MMOL/L (3.5-5.1); SODIUM 134 MMOL/L (136-145)
[2018-12-16 06:46] LABS: BILIRUBIN,DIRECT 2.3 MG/DL (0.0-0.3)
--- NOTE | 2018-12-16 07:03 | NUR ---
HAND-OFF: Report given to Joan Timmons RN.
--- NOTE | 2018-12-16 07:05 | NUR ---
NURSE NOTES: Received patient from SONG Bourgeois. Patient VS stable at this time. Patient is alert and oriented at this time. Patient responds to questions by mouthing words and nodding yes or shaking head for no. Patient on endotracheal tube size 7.5cm with 23cm a the lip-line. Patient has an NG tube, but patient removed it last night. Patient is now on bilateral soft wrist restraints. Patient changed his code status yesterday, and wishes to have no artificial nutrition. NGT was not reinserted at this time. patient has sacral stage 2 pressure ulcer and right hip old wound. Dressings intact at this time. Patient anuric. Patient status post right AKA on 12/11 and has history of left BKA. Patient wishes to be comfort care only at this time. Patient made his decision yesterday, but the doctors have not yet come to change any orders at this time. Will follow up with doctors today to ensure that the patient's wishes are followed. Addendum: 12/16/18 at 0750 by Joan Timmons RN Patient has a right upper arm AV shunt. Caution sign behind the bed. AV shunt thrill present.
--- NOTE | 2018-12-16 07:30 | NUR ---
RESPIRATORY- Patient refused ABG SONG samuels aware.
--- NOTE | 2018-12-16 07:30 | NUR ---
NURSE NOTES: Oral care performed at this time. Patient turned and cleaned at this time.
--- NOTE | 2018-12-16 09:00 | NUR ---
NURSE NOTES: Sy and [employer] held. Patient does not want artificial nutrition/tube feeding. Patient consented to medication but not tube feeding.
--- NOTE | 2018-12-16 09:00 | NUR ---
NURSE NOTES: Patient VS stable at this time. Patient wants to be extubated at this time. Will notify Dr Lerma when he comes in today. Patient denies pain at this time.
--- NOTE | 2018-12-16 09:23 | NUR ---
NURSE NOTES: Placed OGT at this time. Placement verified with auscultation. Patient tolerated well. Stat KUB ordered.
--- NOTE | 2018-12-16 09:30 | Diagnostic Imaging Report ---
EXAM: XR Chest, 1 View CLINICAL HISTORY: DYSPNEA TECHNIQUE: Frontal view of the chest. COMPARISON: Chest x-ray 12/15/18 738 FINDINGS: Lungs: Stable bilateral interstitial and airspace opacities. Pleural space: Stable small right pleural effusion. No pneumothorax. Heart: Unremarkable. No cardiomegaly. Mediastinum: Unremarkable. Bones/joints: Unremarkable. Vasculature: Stable right innominate artery stent. Tubes, lines and devices: Interval removal of the NG tube. Stable endotracheal tube. IMPRESSION: 1. Interval removal of the NG tube. 2. Stable bilateral interstitial and airspace opacities. 3. Stable small right pleural effusion.
--- NOTE | 2018-12-16 09:30 | NUR ---
NURSE NOTES: Patient turned and oral care performed at this time. Cool cloth placed over his eyes as requested.
--- NOTE | 2018-12-16 09:32 | NUR ---
RESPIRATORY- WEANING STARTED AT 928 AND FAILED AT 931. WEANING CRITERIA NOT MET.PLACED BACK ONTO PREVIOUS ACVC SETTINGS.
--- NOTE | 2018-12-16 09:43 | NUR ---
NURSE NOTES: KUB taken at this time. Awaiting result.
--- NOTE | 2018-12-16 10:01 | Diagnostic Imaging Report ---
EXAM: XR Abdomen, 1 Views CLINICAL HISTORY: NGT TECHNIQUE: Frontal view of the abdomen/pelvis. COMPARISON: Abdomen x-ray 12/10/18 FINDINGS: Gastrointestinal tract: Unremarkable. No dilation. Bones/joints: Unremarkable. Tubes, lines and devices: NG tube tip in the stomach, good position. IMPRESSION: NG tube tip in the stomach, good position.
--- NOTE | 2018-12-16 10:15 | NUR ---
NURSE NOTES: OGT placement verified by abdominal x-ray. Will proceed with medication administration.
--- NOTE | 2018-12-16 10:26 | NUR ---
NURSE NOTES: Patient asked whether he wanted to be fed through the OGT. He mouthed no and shook his head. Patient asked again if medication can be given through the tube. He noded yes. Medication will be given at this time. See eMAR for details.
[2018-12-16] MEDS: Renvela 800mg Pkt NG SCH ×3 (10:29→18:28)
[2018-12-16] MEDS: Pyridoxine 50mg tab NG SCH (10:29)
[2018-12-16] MEDS: Docusate 100mg/10ml Liq NG SCH (10:29)
[2018-12-16] MEDS: Artificial Tears 1.4% Op Soln BOTH EYES PRN (10:41)
--- NOTE | 2018-12-16 12:00 | NUR ---
NURSE NOTES: Patient VS stable at this time with no sign of acute distress. Patient denies pain at this time. Patient oral care performed at this time.
--- NOTE | 2018-12-16 12:25 | Pulmonolgy Critical Care Note ---
Critical Care - Asmt/Plan Problems: (1) Acute respiratory failure (2) Sepsis (3) End stage liver disease (4) ESRF (end stage renal failure) (5) Ascites (6) Diabetes mellitus (7) S/P BKA (below knee amputation) Respiratory: monitor respiratory rate, adjust FIO2, CXR, other - extubate Cardiac: continue to monitor HR/BP Renal: F/U I&O, keep IV fluid Infectious Disease: check cultures, continue antibiotics, other - wbc decreasing Gastrointestinal: hold feedings Endocrine: monitor blood sugar Hematologic: monitor H/H, transfuse if hgb<8.5 Neurologic: PRN Ativan, keep patient comfortable Affect: PRN ativan Prophylaxis: Protonix Notes Reviewed: cardio, renal Discussed with: nurses, consultants, heel casermanager sharepoint - Objective Last 24 Hour Vital Signs Date Time Temp Pulse Resp B/P (MAP) Pulse Ox O2 Delivery O2 Flow Rate FiO2 12/16/18 11:05 66 16 30 12/16/18 10:00 68 23 134/65 (88) 100 12/16/18 09:57 100 12/16/18 09:32 68 16 30 12/16/18 09:29 68 12 30 12/16/18 09:00 69 24 131/77 (95) 100 12/16/18 08:00 Mechanical Ventilator 12/16/18 08:00 70 12/16/18 08:00 30 12/16/18 08:00 97.7 69 22 148/62 (90) 100 12/16/18 07:29 68 16 30 12/16/18 07:00 69 19 142/56 (84) 100 12/16/18 06:00 67 19 142/56 (84) 100 12/16/18 05:20 67 16 30 12/16/18 05:00 67 20 145/63 (90) 100 12/16/18 04:00 Mechanical Ventilator 12/16/18 04:00 30 12/16/18 04:00 69 12/16/18 04:00 98.0 69 24 150/57 (88) 100 12/16/18 03:53 71 18 Mechanical Ventilator 30 12/16/18 03:35 72 17 30 12/16/18 03:00 70 28 146/67 (93) 100 12/16/18 02:00 72 26 131/59 (83) 12/16/18 01:19 75 25 30 12/16/18 01:00 75 18 128/45 (72) 100 12/16/18 00:00 72 12/16/18 00:00 98.0 71 27 128/45 (72) 100 12/16/18 00:00 Mechanical Ventilator 12/15/18 23:00 74 20 133/54 (80) 100 12/15/18 22:56 79 19 30 12/15/18 22:00 70 24 127/43 (71) 100 12/15/18 21:00 69 16 30 12/15/18 21:00 70 18 138/51 (80) 100 12/15/18 20:00 30 12/15/18 20:00 Mechanical Ventilator 12/15/18 20:00 69 12/15/18 20:00 97.9 70 20 122/48 (72) 100 12/15/18 19:02 70 16 30 12/15/18 19:00 69 19 132/65 (87) 100 12/15/18 18:00 72 22 132/65 (87) 100 12/15/18 17:20 73 20 30 12/15/18 17:00 98.6 75 28 151/78 (102) 100 12/15/18 16:00 70 33 122/46 (71) 100 12/15/18 16:00 Mechanical Ventilator 12/15/18 16:00 73 12/15/18 16:00 30 12/15/18 15:22 71 16 30 12/15/18 15:00 71 34 112/60 (77) 99 12/15/18 14:00 71 27 112/60 (77) 99 12/15/18 13:00 70 20 119/57 (77) 100 12/15/18 12:53 72 18 30 Status: awake Condition: critical, grave Neck: full ROM Lungs: rales, rhonchi Heart: HR/BP stable Abdomen: soft, active bowel sounds Extremities: no C/C/E Decubiti: location Micro: Microbiology Date/Time Source Procedure Growth Status 12/14/18 10:00 Sputum Gram Stain Pending Resulted 12/14/18 10:00 Sputum Culture - Preliminary Gram Negative Bacillus 1 Resulted Accucheck: 95 Critical Care - Subjective ROS Limited/Unobtainable: No Interval Events: awake, comfortable, signed DNR form. wants to ge extubated, sister agrees. FI02: 30 Vent Support Breath Rate: 16 Vent Support Mode: AC Vent Tidal Volume: 600 Sputum Amount: Small PEEP: 5.0 PIP: 29 Tube Feeding Amount: 0 I&O: Intake and Output 12/15/18 12/16/18 19:00 07:00 Intake Total 260 ml 395 ml Output Total 0 ml 0 ml Balance 260 ml 395 ml Free Water 100 ml 100 ml IV Total 155 ml Tube Feeding 160 ml 140 ml Output Urine Total 0 ml 0 ml ET-Tube: 7.5 ET Position: 22 Labs: Laboratory Tests Test 12/16/18 05:30 White Blood Count 16.2 K/UL (4.8-10.8) H Red Blood Count 3.51 M/UL (4.70-6.10) L Hemoglobin 11.0 G/DL (14.2-18.0) L Hematocrit 33.9 % (42.0-52.0) L Mean Corpuscular Volume 96 FL (80-99) Mean Corpuscular Hemoglobin 31.4 PG (27.0-31.0) H Mean Corpuscular Hemoglobin Concent 32.5 G/DL (32.0-36.0) Red Cell Distribution Width 17.0 % (11.6-14.8) H Platelet Count 130 K/UL (150-450) L Mean Platelet Volume 11.2 FL (6.5-10.1) H Neutrophils (%) (Auto) % (45.0-75.0) Lymphocytes (%) (Auto) % (20.0-45.0) Monocytes (%) (Auto) % (1.0-10.0) Eosinophils (%) (Auto) % (0.0-3.0) Basophils (%) (Auto) % (0.0-2.0) Differential Total Cells Counted 100 Neutrophils % (Manual) 87 % (45-75) H Lymphocytes % (Manual) 9 % (20-45) L Monocytes % (Manual) 3 % (1-10) Eosinophils % (Manual) 1 % (0-3) Basophils % (Manual) 0 % (0-2) Band Neutrophils 0 % (0-8) Platelet Estimate Decreased L Platelet Morphology Normal Hypochromasia 1+ Anisocytosis 1+ Macrocytosis 1+ Target Cells Rare Sodium Level 134 MMOL/L (136-145) L Potassium Level 3.8 MMOL/L (3.5-5.1) Chloride Level 100 MMOL/L (98-107) Carbon Dioxide Level 24 MMOL/L (21-32) Anion Gap 10 mmol/L (5-15) Blood Urea Nitrogen 92 mg/dL (7-18) H Creatinine 4.3 MG/DL (0.55-1.30) H Estimat Glomerular Filtration Rate 13.9 mL/min (>60) Glucose Level 64 MG/DL (74-106) L Calcium Level 8.5 MG/DL (8.5-10.1) Phosphorus Level 3.9 MG/DL (2.5-4.9) Magnesium Level 2.4 MG/DL (1.8-2.4) Total Bilirubin 2.9 MG/DL (0.2-1.0) H Direct Bilirubin 2.3 MG/DL (0.0-0.3) H Aspartate Amino Transf (AST/SGOT) 22 U/L (15-37) Alanine Aminotransferase (ALT/SGPT) 7 U/L (12-78) L Alkaline Phosphatase 216 U/L (46-116) H Total Protein 6.3 G/DL (6.4-8.2) L Albumin 1.6 G/DL (3.4-5.0) L Globulin 4.7 g/dL Albumin/Globulin Ratio 0.3 (1.0-2.7) L Tamia Lerma MD Dec 16, 2018 12:25
--- NOTE | 2018-12-16 12:52 | NUR ---
ASSEMBLIES AND INSTALLATIONS INSPECTORSHEARER PR[employer]ED [employer] BOARDS 12/16/2018 SI: S/P CODE BLUE ETT/VENT SUPPORT T 97.7 HR 69 RR 22 B/P 148/62 SATS 100% ON MECH VENT FiO2 30 WBC 16.2 NA 134 BUN 92 CR 4.3 GLU 64 TBILI 2.9 DBILI 2.3 ALT 7 ALP 216 IS:DILAUDID 0.5 IVP PREVACID 30mg NG SEVELAMER CARBONATE 800mg NG ICU STATUS PLAN OF CARE: EXTUBATE
[2018-12-16] MEDS ORDERED: Dextrose 10% 1,000 ML IV SCH ×2 (13:00→22:30)
--- NOTE | 2018-12-16 13:00 | NUR ---
NURSE NOTES: Patient extubated at this time. Dr Lerma placed the order per the patient's wishes. Patient now on NC 3L with SpO2 100% at this time. Addendum: 12/16/18 at 1553 by Joan Timmons RN We attempted to call the sister to let her know, but the phone number was not correct.
--- NOTE | 2018-12-16 13:08 | NUR ---
Extubated Patient per Dr. Lerma. Placed patient on NC 3LPM 32%FIO2. SONG Franco made aware.
--- NOTE | 2018-12-16 13:59 | Nephrology Progress Note ---
Assessment/Plan Problem List: (1) ESRF (end stage renal failure) (2) Leukocytosis Assessment: sepsis (3) CHF (congestive heart failure) (4) Acute respiratory failure (5) Hyperbilirubinemia (6) Elevated troponin I level Assessment admitted with sepsis and shortness of breath (1) ESRD (end stage renal disease) right arm fistula (2) Possible Fluid overload, unspecified (3) h/o Bradycardia (4) Anemia (5) h/o Pleural effusion (6) Elevated troponin (7) Allergy Dialntin & PCN (8) Elevated Bili Plan blood work OK Vanco level pending intubated on Vent HD last 12/14 next ? on Meropenem , Vanco- I will dose Vanco IV bolus as needed adjust BP meds 2D Echo 55% EjFx stop beta blockers for low HR hydralazin and procardia as needed reviewe CXR : Pneumonia per consultants Subjective ROS Limited/Unobtainable: Yes Objective Objective Last 24 Hour Vital Signs Date Time Temp Pulse Resp B/P (MAP) Pulse Ox O2 Delivery O2 Flow Rate FiO2 12/16/18 13:15 Nasal Cannula 3.0 32 12/16/18 13:15 100 Nasal Cannula 3.0 32 12/16/18 13:15 82 24 Nasal Cannula 3.0 32 12/16/18 13:12 Nasal Cannula 3.0 32 12/16/18 11:05 66 16 30 12/16/18 10:00 68 23 134/65 (88) 100 12/16/18 09:57 100 12/16/18 09:32 68 16 30 12/16/18 09:29 68 12 30 12/16/18 09:00 69 24 131/77 (95) 100 12/16/18 08:00 Mechanical Ventilator 12/16/18 08:00 70 12/16/18 08:00 30 12/16/18 08:00 97.7 69 22 148/62 (90) 100 12/16/18 07:29 68 16 30 12/16/18 07:00 69 19 142/56 (84) 100 12/16/18 06:00 67 19 142/56 (84) 100 12/16/18 05:20 67 16 30 12/16/18 05:00 67 20 145/63 (90) 100 12/16/18 04:00 Mechanical Ventilator 12/16/18 04:00 30 12/16/18 04:00 69 12/16/18 04:00 98.0 69 24 150/57 (88) 100 12/16/18 03:53 71 18 Mechanical Ventilator 30 12/16/18 03:35 72 17 30 12/16/18 03:00 70 28 146/67 (93) 100 12/16/18 02:00 72 26 131/59 (83) 12/16/18 01:19 75 25 30 12/16/18 01:00 75 18 128/45 (72) 100 12/16/18 00:00 72 12/16/18 00:00 98.0 71 27 128/45 (72) 100 12/16/18 00:00 Mechanical Ventilator 12/15/18 23:00 74 20 133/54 (80) 100 12/15/18 22:56 79 19 30 12/15/18 22:00 70 24 127/43 (71) 100 12/15/18 21:00 69 16 30 12/15/18 21:00 70 18 138/51 (80) 100 12/15/18 20:00 30 12/15/18 20:00 Mechanical Ventilator 12/15/18 20:00 69 12/15/18 20:00 97.9 70 20 122/48 (72) 100 12/15/18 19:02 70 16 30 12/15/18 19:00 69 19 132/65 (87) 100 12/15/18 18:00 72 22 132/65 (87) 100 12/15/18 17:20 73 20 30 12/15/18 17:00 98.6 75 28 151/78 (102) 100 12/15/18 16:00 70 33 122/46 (71) 100 12/15/18 16:00 Mechanical Ventilator 12/15/18 16:00 73 12/15/18 16:00 30 12/15/18 15:22 71 16 30 12/15/18 15:00 71 34 112/60 (77) 99 12/15/18 14:00 71 27 112/60 (77) 99 Intake and Output 12/15/18 12/16/18 19:00 07:00 Intake Total 260 ml 395 ml Output Total 0 ml 0 ml Balance 260 ml 395 ml Free Water 100 ml 100 ml IV Total 155 ml Tube Feeding 160 ml 140 ml Output Urine Total 0 ml 0 ml Laboratory Tests 12/16/18 05:30: White Blood Count 16.2H, Red Blood Count 3.51L, Hemoglobin 11.0L, Hematocrit 33.9L, Mean Corpuscular Volume 96, Mean Corpuscular Hemoglobin 31.4H, Mean Corpuscular Hemoglobin Concent 32.5, Red Cell Distribution Width 17.0H, Platelet Count 130L, Mean Platelet Volume 11.2H, Neutrophils (%) (Auto) , Lymphocytes (%) (Auto) , Monocytes (%) (Auto) , Eosinophils (%) (Auto) , Basophils (%) (Auto) , Differential Total Cells Counted 100, Neutrophils % ( Manual) 87H, Lymphocytes % (Manual) 9L, Monocytes % (Manual) 3, Eosinophils % ( Manual) 1, Basophils % (Manual) 0, Band Neutrophils 0, Platelet Estimate DecreasedL, Platelet Morphology Normal, Hypochromasia 1+, Anisocytosis 1+, Macrocytosis 1+, Target Cells Rare, Sodium Level 134L, Potassium Level 3.8, Chloride Level 100, Carbon Dioxide Level 24, Anion Gap 10, Blood Urea Nitrogen 92H, Creatinine 4.3H, Estimat Glomerular Filtration Rate 13.9, Glucose Level 64L , Calcium Level 8.5, Phosphorus Level 3.9, Magnesium Level 2.4, Total Bilirubin 2.9H, Direct Bilirubin 2.3H, Aspartate Amino Transf (AST/SGOT) 22, Alanine Aminotransferase (ALT/SGPT) 7L, Alkaline Phosphatase 216H, Total Protein 6.3L, Albumin 1.6L, Globulin 4.7, Albumin/Globulin Ratio 0.3L Height (Feet): 5 Height (Inches): 4.00 Weight (Pounds): 130 General Appearance: no apparent distress EENT: other - vented Respiratory/Chest: decreased breath sounds Abdomen: soft Objective no change Alessandro Price MD Dec 16, 2018 13:59
--- NOTE | 2018-12-16 15:46 | NUR ---
NURSE NOTES: Notified Dr Price regarding the vanco random for this patient. Vanco random is 17.7.
--- NOTE | 2018-12-16 16:23 | NUR ---
NURSE NOTES: Patient complaining that he is hot. Patient given fan. Addendum: 12/16/18 at 1627 by Joan Timmons RN Patient oral care performed at this time.
--- NOTE | 2018-12-16 19:30 | NUR ---
HAND-OFF: Report given to SONG Vargas. Patient VS stable at this time with no sign of acute distress.
--- NOTE | 2018-12-16 19:31 | NUR ---
NURSE NOTES: Report received from SONG Franco. Pt A/Ox4, kiswahili speaking. blacktop spreader shows SR. Pt on 3L NC, tolerating well. No current diet present, pt to have ST eval tomorrow. Pt anuric. Accuchecks Q6h, with no coverage. See WCP for skin alteration. Pt has D10 running @ 30 ml/hr. A LH20g, and a LFA20g peripheral IV present, patent and asymptomatic. A DEEPTI AV shunt seen. Bed in lowest position, bed alarms placed. Call light within reach. Family at bedside. Will continue to monitor and with patients plan of care.
--- NOTE | 2018-12-16 19:34 | General Progress Note ---
Assessment/Plan Assessment/Plan Assessment/Plan Problem List: (1) S/P BKA (below knee amputation) ICD Codes: Z89.519 - Acquired absence of unspecified leg below knee SNOMED: 36827672, 644739706 (2) Hx of BKA ICD Codes: Z89.519 - Acquired absence of unspecified leg below knee SNOMED: 097326478, 826747869 (3) Severe sepsis ICD Codes: A41.9 - Sepsis, unspecified organism; R65.20 - Severe sepsis without septic shock SNOMED: 00740680 (4) Diabetes mellitus ICD Codes: E11.9 - Type 2 diabetes mellitus without complications SNOMED: 25350116 (5) ESRF (end stage renal failure) ICD Codes: N18.6 - End stage renal disease SNOMED: 46534097 (6) Leukocytosis ICD Codes: D72.829 - Elevated white blood cell count, unspecified SNOMED: 215395052, 275489174 (7) CHF (congestive heart failure) ICD Codes: I50.9 - Heart failure, unspecified SNOMED: 39772631 (8) Anemia Assessment/Plan Elevated residuals Dysphasia G-tube Macrocytic anemia Diarrhea - C Difff (-) Occult blood stool positive Elevated LFTs KUB negative Reglan 5 mg ATC Monitor H&H, PRN transfusions PPI Trend LFTs, s/p amputation persistent leukocytosis>>> fu ID pending possible paracentesis Subjective Allergies: Coded Allergies: PENICILLINS (Unverified Allergy, Mild, 12/05/18) PHENYTOIN (Verified Allergy, Unknown, 10/17/18) Uncoded Allergies: PENICILLIN (Allergy, Mild, 11/17/18) Subjective Extubated ETT and NGT out wants to eat Objective Last 24 Hour Vital Signs Date Time Temp Pulse Resp B/P (MAP) Pulse Ox O2 Delivery O2 Flow Rate FiO2 12/16/18 18:00 64 21 131/52 (78) 99 12/16/18 17:00 66 31 118/47 (70) 100 12/16/18 16:00 69 12/16/18 16:00 3.0 12/16/18 16:00 Nasal Cannula 3.0 12/16/18 16:00 98.1 68 32 124/46 (72) 100 12/16/18 15:00 69 22 128/37 (67) 100 12/16/18 14:00 69 25 122/44 (70) 100 12/16/18 13:15 Nasal Cannula 3.0 32 12/16/18 13:15 100 Nasal Cannula 3.0 32 12/16/18 13:15 82 24 Nasal Cannula 3.0 32 12/16/18 13:12 Nasal Cannula 3.0 32 12/16/18 13:00 71 26 139/56 (83) 100 12/16/18 13:00 3.0 12/16/18 12:00 Mechanical Ventilator 12/16/18 12:00 98.0 68 22 137/46 (76) 100 12/16/18 12:00 69 12/16/18 12:00 30 12/16/18 11:05 66 16 30 12/16/18 11:00 68 25 129/63 (85) 100 12/16/18 10:00 68 23 134/65 (88) 100 12/16/18 09:57 100 12/16/18 09:32 68 16 30 12/16/18 09:29 68 12 30 12/16/18 09:00 69 24 131/77 (95) 100 12/16/18 08:00 Mechanical Ventilator 12/16/18 08:00 70 12/16/18 08:00 30 12/16/18 08:00 97.7 69 22 148/62 (90) 100 12/16/18 07:29 68 16 30 12/16/18 07:00 69 19 142/56 (84) 100 12/16/18 06:00 67 19 142/56 (84) 100 12/16/18 05:20 67 16 30 12/16/18 05:00 67 20 145/63 (90) 100 12/16/18 04:00 Mechanical Ventilator 12/16/18 04:00 30 12/16/18 04:00 69 12/16/18 04:00 98.0 69 24 150/57 (88) 100 12/16/18 03:53 71 18 Mechanical Ventilator 30 12/16/18 03:35 72 17 30 12/16/18 03:00 70 28 146/67 (93) 100 12/16/18 02:00 72 26 131/59 (83) 12/16/18 01:19 75 25 30 12/16/18 01:00 75 18 128/45 (72) 100 12/16/18 00:00 72 12/16/18 00:00 98.0 71 27 128/45 (72) 100 12/16/18 00:00 Mechanical Ventilator 12/15/18 23:00 74 20 133/54 (80) 100 12/15/18 22:56 79 19 30 12/15/18 22:00 70 24 127/43 (71) 100 12/15/18 21:00 69 16 30 12/15/18 21:00 70 18 138/51 (80) 100 12/15/18 20:00 30 12/15/18 20:00 Mechanical Ventilator 12/15/18 20:00 69 12/15/18 20:00 97.9 70 20 122/48 (72) 100 Intake and Output 12/15/18 12/16/18 19:00 07:00 Intake Total 260 ml 395 ml Output Total 0 ml 0 ml Balance 260 ml 395 ml Free Water 100 ml 100 ml IV Total 155 ml Tube Feeding 160 ml 140 ml Output Urine Total 0 ml 0 ml Laboratory Tests 12/16/18 05:30: White Blood Count 16.2H, Red Blood Count 3.51L, Hemoglobin 11.0L, Hematocrit 33.9L, Mean Corpuscular Volume 96, Mean Corpuscular Hemoglobin 31.4H, Mean Corpuscular Hemoglobin Concent 32.5, Red Cell Distribution Width 17.0H, Platelet Count 130L, Mean Platelet Volume 11.2H, Neutrophils (%) (Auto) , Lymphocytes (%) (Auto) , Monocytes (%) (Auto) , Eosinophils (%) (Auto) , Basophils (%) (Auto) , Differential Total Cells Counted 100, Neutrophils % ( Manual) 87H, Lymphocytes % (Manual) 9L, Monocytes % (Manual) 3, Eosinophils % ( Manual) 1, Basophils % (Manual) 0, Band Neutrophils 0, Platelet Estimate DecreasedL, Platelet Morphology Normal, Hypochromasia 1+, Anisocytosis 1+, Macrocytosis 1+, Target Cells Rare, Sodium Level 134L, Potassium Level 3.8, Chloride Level 100, Carbon Dioxide Level 24, Anion Gap 10, Blood Urea Nitrogen 92H, Creatinine 4.3H, Estimat Glomerular Filtration Rate 13.9, Glucose Level 64L , Calcium Level 8.5, Phosphorus Level 3.9, Magnesium Level 2.4, Total Bilirubin 2.9H, Direct Bilirubin 2.3H, Aspartate Amino Transf (AST/SGOT) 22, Alanine Aminotransferase (ALT/SGPT) 7L, Alkaline Phosphatase 216H, Total Protein 6.3L, Albumin 1.6L, Globulin 4.7, Albumin/Globulin Ratio 0.3L 12/16/18 14:45: Random Vancomycin Level 17.7 Height (Feet): 5 Height (Inches): 4.00 Weight (Pounds): 130 Objective Thin man NCAT, (+) ETT and NGT supple CTA RR abd soft (L) JOSE RAMON, (R) Moises Lester MD Dec 16, 2018 19:34
[2018-12-16] MEDS: Betadine 4oz Bottle TOPIC SCH (20:32)
[2018-12-16] MEDS: Meropenem 500 MG in NS 55 ML IVPB SCH (20:33)
--- NOTE | 2018-12-16 23:12 | General Progress Note ---
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 12/11/18 -Cont vancomycin and meropenen -Pt with good mental status, -Pulmonary consult noted, -ID consult noted, cont broad spectrum IV abx -Surgery consult appreciated, rec amputation, -MRI right foot and ankle: +osteomyelitis and fluid collection likely abscess -Vascular and podiatry consult appreciated -daily care per surgery -Cont pain management - monitor BP -s/p R AKA #Troponemia likely 2/2 type 2 NSTEMI -Trend trop and EKG - unremarkable -cardiology consult appreciated #Leukocytosis likly 2/2 infection -Flow cytometry pending -Hematology consult appreciated #Dysphagia -GI consult appreciated -repeat swallow study s/p extubation #DM now hypoglycemic -hypoglycemia likley 2/2 sepsis -hold antiDM medications -FSG Q6hrs -Monitor respiratory status #ESRD on HD (MWF) via R arm fistula #HyperKalemia #HypoNA -no signs of fluid overload -nephrology consult appreciated -CTM electrolytes -HD per renal -Last HD 12/10 #Ascites -s/p paracenthesis 6 removed -s/p albumin Code: DNR/DNI I spent 75 minutes on this patient's case, and 45 mins was dedicated to critical care Critical Care Services performed include: Telemetry Review Hemodynamic measurement interpretation Laboratory data review and interpretation Radiology image review and interpretation Ventilator setting review, management, and adjustment Interpretation of ABG's Discussion of patient's care with ICU team, ICU Nursing staff and/or consulting services Time of note may not represent time of encounter Subjective Allergies: Coded Allergies: PENICILLINS (Unverified Allergy, Mild, 12/05/18) PHENYTOIN (Verified Allergy, Unknown, 10/17/18) Uncoded Allergies: PENICILLIN (Allergy, Mild, 11/17/18) Subjective S/P R AKA, BP stable, pt extubated to HI this AM, doing well, code status changed to DNR/DNI, downgrade to stepdown unit Objective Last 24 Hour Vital Signs Date Time Temp Pulse Resp B/P (MAP) Pulse Ox O2 Delivery O2 Flow Rate FiO2 12/16/18 22:15 99 Nasal Cannula 3.0 32 12/16/18 22:15 Nasal Cannula 3.0 32 12/16/18 20:00 67 12/16/18 18:00 64 21 131/52 (78) 99 12/16/18 17:00 66 31 118/47 (70) 100 12/16/18 16:00 69 12/16/18 16:00 3.0 12/16/18 16:00 Nasal Cannula 3.0 12/16/18 16:00 98.1 68 32 124/46 (72) 100 12/16/18 15:00 69 22 128/37 (67) 100 12/16/18 14:00 69 25 122/44 (70) 100 12/16/18 13:15 Nasal Cannula 3.0 32 12/16/18 13:15 100 Nasal Cannula 3.0 32 12/16/18 13:15 82 24 Nasal Cannula 3.0 32 12/16/18 13:12 Nasal Cannula 3.0 32 12/16/18 13:00 71 26 139/56 (83) 100 12/16/18 13:00 3.0 12/16/18 12:00 Mechanical Ventilator 12/16/18 12:00 98.0 68 22 137/46 (76) 100 12/16/18 12:00 69 12/16/18 12:00 30 12/16/18 11:05 66 16 30 12/16/18 11:00 68 25 129/63 (85) 100 12/16/18 10:00 68 23 134/65 (88) 100 12/16/18 09:57 100 12/16/18 09:32 68 16 30 12/16/18 09:29 68 12 30 12/16/18 09:00 69 24 131/77 (95) 100 12/16/18 08:00 Mechanical Ventilator 12/16/18 08:00 70 12/16/18 08:00 30 12/16/18 08:00 97.7 69 22 148/62 (90) 100 12/16/18 07:29 68 16 30 12/16/18 07:00 69 19 142/56 (84) 100 12/16/18 06:00 67 19 142/56 (84) 100 12/16/18 05:20 67 16 30 12/16/18 05:00 67 20 145/63 (90) 100 12/16/18 04:00 Mechanical Ventilator 12/16/18 04:00 30 12/16/18 04:00 69 12/16/18 04:00 98.0 69 24 150/57 (88) 100 12/16/18 03:53 71 18 Mechanical Ventilator 30 12/16/18 03:35 72 17 30 12/16/18 03:00 70 28 146/67 (93) 100 12/16/18 02:00 72 26 131/59 (83) 12/16/18 01:19 75 25 30 12/16/18 01:00 75 18 128/45 (72) 100 12/16/18 00:00 72 12/16/18 00:00 98.0 71 27 128/45 (72) 100 12/16/18 00:00 Mechanical Ventilator Intake and Output 12/15/18 12/16/18 18:59 06:59 Intake Total 260 ml 415 ml Output Total 0 ml 0 ml Balance 260 ml 415 ml Free Water 100 ml 100 ml IV Total 155 ml Tube Feeding 160 ml 160 ml Output Urine Total 0 ml 0 ml Laboratory Tests 12/16/18 05:30: White Blood Count 16.2H, Red Blood Count 3.51L, Hemoglobin 11.0L, Hematocrit 33.9L, Mean Corpuscular Volume 96, Mean Corpuscular Hemoglobin 31.4H, Mean Corpuscular Hemoglobin Concent 32.5, Red Cell Distribution Width 17.0H, Platelet Count 130L, Mean Platelet Volume 11.2H, Neutrophils (%) (Auto) , Lymphocytes (%) (Auto) , Monocytes (%) (Auto) , Eosinophils (%) (Auto) , Basophils (%) (Auto) , Differential Total Cells Counted 100, Neutrophils % ( Manual) 87H, Lymphocytes % (Manual) 9L, Monocytes % (Manual) 3, Eosinophils % ( Manual) 1, Basophils % (Manual) 0, Band Neutrophils 0, Platelet Estimate DecreasedL, Platelet Morphology Normal, Hypochromasia 1+, Anisocytosis 1+, Macrocytosis 1+, Target Cells Rare, Sodium Level 134L, Potassium Level 3.8, Chloride Level 100, Carbon Dioxide Level 24, Anion Gap 10, Blood Urea Nitrogen 92H, Creatinine 4.3H, Estimat Glomerular Filtration Rate 13.9, Glucose Level 64L , Calcium Level 8.5, Phosphorus Level 3.9, Magnesium Level 2.4, Total Bilirubin 2.9H, Direct Bilirubin 2.3H, Aspartate Amino Transf (AST/SGOT) 22, Alanine Aminotransferase (ALT/SGPT) 7L, Alkaline Phosphatase 216H, Total Protein 6.3L, Albumin 1.6L, Globulin 4.7, Albumin/Globulin Ratio 0.3L 12/16/18 14:45: Random Vancomycin Level 17.7 Height (Feet): 5 Height (Inches): 4.00 Weight (Pounds): 130 Objective General: calm, appears stated age, intubated Head: normocephalic, without obvious abnormality, atraumatic Eyes: conjunctivae/corneas clear. PERRL, EOM's intact Throat: lips, mucosa, and tongue normal. MMM Neck: supple, symmetrical, trachea midline, and no JVD Lungs: b/l air entry Heart: regular rate and rhythm, S1, S2 normal, no murmur, click, rub or gallop Abdomen: soft, non-tender, non-distended, bowel sounds normal; no masses or organomegaly Extremities: L BKA, R AKA with sindhu, healing well, no signs of infection Pulses: +1 pulse Skin: skin color, texture, turgor normal; no rashes or lesions Neurologic: grossly normal Frieda Miller MD Dec 16, 2018 23:12
[2018-12-16] MEDS ORDERED: Hydromorphone 0.5mg/0.5ml inj IVP PRN (23:45)
[2018-12-17] VITALS: BP 134/68
[2018-12-17] MEDS ORDERED: Morphine Sulfate 4mg/ml Inj (IV USE ONLY) IVP PRN ×2 (01:00→20:23)
[2018-12-17] MEDS ORDERED: LORazepam Inj 2mg/ml 1ml IV PRN ×2 (01:00→20:23)
[2018-12-17] MEDS ORDERED: Metoclopramide 10mg/2ml Inj IVP PRN ×2 (01:00→20:23)
[2018-12-17 04:00] VITALS: BP 129/63
[2018-12-17 04:34] LABS: HEMATOCRIT 33.8 % (42.0-52.0); HEMOGLOBIN 10.8 G/DL (14.2-18.0); MEAN CORPUSCULAR VOLUME 98 FL (80-99); PLATELET COUNT 161 K/UL (150-450); RED BLOOD COUNT 3.45 M/UL (4.70-6.10); RED CELL DISTRIBUTION WIDTH 17.2 % (11.6-14.8); WHITE BLOOD COUNT 15.5 K/UL (4.8-10.8)
[2018-12-17 05:17] LABS: ALANINE AMINOTRANSFERASE < 6 U/L (12-78); ALBUMIN 1.5 G/DL (3.4-5.0); ALBUMIN/GLOBULIN RATIO 0.3 (1.0-2.7); ALKALINE PHOSPHATASE 164 U/L (46-116); ANION GAP 11 mmol/L (5-15); ASPARTATE AMINO TRANSFERASE 27 U/L (15-37); BILIRUBIN,TOTAL 2.7 MG/DL (0.2-1.0); BLOOD UREA NITROGEN 99 mg/dL (7-18); CALCIUM 8.1 MG/DL (8.5-10.1); CARBON DIOXIDE 22 MMOL/L (21-32); CHLORIDE 99 MMOL/L (98-107); CREATININE 4.6 MG/DL (0.55-1.30); PHOSPHORUS 5.6 MG/DL (2.5-4.9); POTASSIUM 4.4 MMOL/L (3.5-5.1); SODIUM 132 MMOL/L (136-145)
--- NOTE | 2018-12-17 07:30 | NUR ---
NURSE NOTES: Received patient from [facility]arg[facility]. Patient VS stable at this time. Patient is alert and oriented at this time. Patient responds to questions by mouthing words and nodding yes or shaking head for no. Patient on 2L NC at this time with O2 saturation of 100%. Patient has an order for ST evaluation today to obtain a safe diet order. patient has sacral stage 2 pressure ulcer and right hip old wound. Dressings intact at this time. Patient anuric. Patient status post right AKA on 12/11 and has history of left BKA. Patient has left forearm 20G PIV and left hand 20G PIV. Patient running D10W at 30mL/hr at this time. Patient has a right upper arm AV shunt. No dialysis scheduled for today. Bed in low position with bed alarm on and call light in reach at this time.
[2018-12-17 08:00] VITALS: BP 125/58
[2018-12-17] MEDS ORDERED: Pyridoxine 50mg tab NG SCH (09:00)
[2018-12-17] MEDS ORDERED: Docusate 100mg/10ml Liq NG SCH (09:00)
[2018-12-17] MEDS: Renvela 800mg Pkt NG SCH ×3 (09:56→18:21)
--- NOTE | 2018-12-17 10:59 | Pulmonology Progress Note ---
Assessment/Plan Problems: (1) Acute respiratory failure (2) Severe sepsis (3) ESRF (end stage renal failure) (4) Diabetes mellitus (5) Decubitus ulcer of right heel, stage 4 (6) Acute metabolic encephalopathy (7) S/P BKA (below knee amputation) Assessment/Plan afebrile wbc lower PRBC ordered sputum has Staph aureus, MRSA on Meropenen and Diflucan Urine has ESBL off bipap, tolerating nasal cannula dvt prophylaxis. aspiration precaution f/u cultures swallow evaluation dc planning Subjective ROS Limited/Unobtainable: No Interval Events: tolerating extubation Constitutional: Reports: no symptoms HEENT: Repors: no symptoms Allergies: Coded Allergies: PENICILLINS (Unverified Allergy, Mild, 12/05/18) PHENYTOIN (Verified Allergy, Unknown, 10/17/18) Uncoded Allergies: PENICILLIN (Allergy, Mild, 11/17/18) Objective Last 24 Hour Vital Signs Date Time Temp Pulse Resp B/P (MAP) Pulse Ox O2 Delivery O2 Flow Rate FiO2 12/17/18 04:00 Nasal Cannula 3.0 12/17/18 04:00 97.0 62 18 129/63 (85) 100 12/17/18 04:00 3.0 12/17/18 04:00 63 12/17/18 00:00 3.0 12/17/18 00:00 Nasal Cannula 3.0 12/17/18 00:00 63 12/17/18 00:00 98.6 67 16 134/68 (90) 100 12/16/18 22:15 99 Nasal Cannula 3.0 32 12/16/18 22:15 Nasal Cannula 3.0 32 12/16/18 20:00 97.1 67 16 149/91 (110) 100 12/16/18 20:00 67 12/16/18 20:00 3.0 12/16/18 20:00 Nasal Cannula 3.0 12/16/18 18:00 64 21 131/52 (78) 99 12/16/18 17:00 66 31 118/47 (70) 100 12/16/18 16:00 69 12/16/18 16:00 3.0 12/16/18 16:00 Nasal Cannula 3.0 12/16/18 16:00 98.1 68 32 124/46 (72) 100 12/16/18 15:00 69 22 128/37 (67) 100 12/16/18 14:00 69 25 122/44 (70) 100 12/16/18 13:15 Nasal Cannula 3.0 32 12/16/18 13:15 100 Nasal Cannula 3.0 32 12/16/18 13:15 82 24 Nasal Cannula 3.0 32 12/16/18 13:12 Nasal Cannula 3.0 32 12/16/18 13:00 71 26 139/56 (83) 100 12/16/18 13:00 3.0 12/16/18 12:00 Mechanical Ventilator 12/16/18 12:00 98.0 68 22 137/46 (76) 100 12/16/18 12:00 69 12/16/18 12:00 30 12/16/18 11:05 66 16 30 12/16/18 11:00 68 25 129/63 (85) 100 Intake and Output 12/16/18 12/17/18 19:00 07:00 Intake Total 150 ml 425 ml Output Total 0 ml 0 ml Balance 150 ml 425 ml IV Total 150 ml 425 ml Tube Feeding 0 ml Output Urine Total 0 ml 0 ml # Bowel Movements 1 1 General Appearance: cachetic HEENT: normocephalic, atraumatic Respiratory/Chest: crackles/rales Cardiovascular: normal peripheral pulses, normal rate Abdomen: soft, non tender, no organomegaly Genitourinary: normal external genitalia Extremities: no cyanosis Skin: no lesions Laboratory Tests 12/16/18 14:45: Random Vancomycin Level 17.7 12/17/18 03:22: White Blood Count 15.5H, Red Blood Count 3.45L, Hemoglobin 10.8L, Hematocrit 33.8L, Mean Corpuscular Volume 98, Mean Corpuscular Hemoglobin 31.4H, Mean Corpuscular Hemoglobin Concent 32.0, Red Cell Distribution Width 17.2H, Platelet Count 161, Mean Platelet Volume 11.4H, Neutrophils (%) (Auto) , Lymphocytes (%) (Auto) , Monocytes (%) (Auto) , Eosinophils (%) (Auto) , Basophils (%) (Auto) , Sodium Level 132L, Potassium Level 4.4, Chloride Level 99 , Carbon Dioxide Level 22, Anion Gap 11, Blood Urea Nitrogen 99H, Creatinine 4.6H, Estimat Glomerular Filtration Rate 12.8, Glucose Level 78, Calcium Level 8.1L, Phosphorus Level 5.6H, Magnesium Level 2.3, Total Bilirubin 2.7H, Direct Bilirubin 2.0H, Aspartate Amino Transf (AST/SGOT) 27, Alanine Aminotransferase ( ALT/SGPT) < 6L, Alkaline Phosphatase 164H, C-Reactive Protein, Quantitative 11.7H, Pro-B-Type Natriuretic Peptide 85819L, Total Protein 6.3L, Albumin 1.5L, Globulin 4.8, Albumin/Globulin Ratio 0.3L Current Medications Medications (Trade) Dose Ordered Sig/Ronald Route PRN Reason Start Time Stop Time Status Last Admin Dose Admin Artificial Tears (Akwa-Tears) 1 drop QIDPRN PRN BOTH EYES dry eyes 12/17/18 00:00 01/14/19 00:00 Dextrose 1,000 ml @ 30 mls/hr Q24H IV 12/16/18 22:30 01/15/19 12:59 Dextrose (Dextrose 50%) 25 ml Q30M PRN IV Hypoglycemia 12/16/18 22:45 01/03/19 22:44 Dextrose (Dextrose 50%) 50 ml Q30M PRN IV Hypoglycemia 12/16/18 22:45 01/03/19 22:44 Docusate Sodium (Colace) 200 mg DAILY NG 12/17/18 09:00 01/10/19 08:59 12/17/18 09:56 Fluconazole/ Sodium Chloride 100 ml @ 100 mls/hr Q24H IV 12/16/18 23:00 12/22/18 22:59 12/16/18 23:46 Hydromorphone HCl (Dilaudid) 0.5 mg Q4H PRN IVP For Pain 12/16/18 23:45 12/19/18 11:44 Lansoprazole (Prevacid) 30 mg BID NG 12/17/18 09:00 01/08/19 08:59 12/17/18 09:57 Lorazepam (Ativan 2mg/ml 1ml) 2 mg Q4H PRN IV For Anxiety 12/17/18 01:00 12/18/18 08:59 Meropenem 500 mg/ Sodium Chloride 55 ml @ 110 mls/hr Q24H IVPB 12/17/18 21:00 12/18/18 20:59 Metoclopramide HCl (Reglan) 5 mg Q8H PRN IVP Nausea & Vomiting 12/17/18 01:00 01/10/19 08:59 Morphine Sulfate (Morphine Sulfate) 4 mg Q4H PRN IVP SEVERE BREAKTHROUGH PAIN 12/17/18 01:00 12/18/18 08:59 Povidone Iodine (Betadine María) 1 applic QHS TOPIC 12/17/18 21:00 01/05/19 20:59 Pyridoxine HCl (Vitamin B6) 25 mg DAILY NG 12/17/18 09:00 01/07/19 08:59 12/17/18 09:57 Sevelamer Carbonate (Renvela) 800 mg THREE TIMES A DAY NG 12/17/18 09:00 01/07/19 08:59 12/17/18 09:56 Tamia Lerma MD Dec 17, 2018 10:59
--- NOTE | 2018-12-17 11:02 | Nephrology Progress Note ---
Assessment/Plan Problem List: (1) ESRF (end stage renal failure) (2) Leukocytosis Assessment: sepsis (3) CHF (congestive heart failure) (4) Acute respiratory failure (5) Hyperbilirubinemia (6) Elevated troponin I level Assessment admitted with sepsis and shortness of breath (1) ESRD (end stage renal disease) right arm fistula (2) Possible Fluid overload, unspecified (3) h/o Bradycardia (4) Anemia (5) h/o Pleural effusion (6) Elevated troponin (7) Allergy Dialntin & PCN (8) Elevated Bili Plan blood work OK intubated on Vent HD last 12/14 next 12/18 - patient wants to continue dialysis on Meropenem , Vanco- I will dose Vanco- redose 12/17 IV bolus as needed adjust BP meds 2D Echo 55% EjFx stop beta blockers for low HR hydralazin and procardia as needed reviewe CXR : Pneumonia per consultants Subjective ROS Limited/Unobtainable: No Constitutional: Reports: malaise, weakness Objective Objective Last 24 Hour Vital Signs Date Time Temp Pulse Resp B/P (MAP) Pulse Ox O2 Delivery O2 Flow Rate FiO2 12/17/18 04:00 Nasal Cannula 3.0 12/17/18 04:00 97.0 62 18 129/63 (85) 100 12/17/18 04:00 3.0 12/17/18 04:00 63 12/17/18 00:00 3.0 12/17/18 00:00 Nasal Cannula 3.0 12/17/18 00:00 63 12/17/18 00:00 98.6 67 16 134/68 (90) 100 12/16/18 22:15 99 Nasal Cannula 3.0 32 12/16/18 22:15 Nasal Cannula 3.0 32 12/16/18 20:00 97.1 67 16 149/91 (110) 100 12/16/18 20:00 67 12/16/18 20:00 3.0 12/16/18 20:00 Nasal Cannula 3.0 12/16/18 18:00 64 21 131/52 (78) 99 12/16/18 17:00 66 31 118/47 (70) 100 12/16/18 16:00 69 12/16/18 16:00 3.0 12/16/18 16:00 Nasal Cannula 3.0 12/16/18 16:00 98.1 68 32 124/46 (72) 100 12/16/18 15:00 69 22 128/37 (67) 100 12/16/18 14:00 69 25 122/44 (70) 100 12/16/18 13:15 Nasal Cannula 3.0 32 12/16/18 13:15 100 Nasal Cannula 3.0 32 12/16/18 13:15 82 24 Nasal Cannula 3.0 32 12/16/18 13:12 Nasal Cannula 3.0 32 12/16/18 13:00 71 26 139/56 (83) 100 12/16/18 13:00 3.0 12/16/18 12:00 Mechanical Ventilator 12/16/18 12:00 98.0 68 22 137/46 (76) 100 12/16/18 12:00 69 12/16/18 12:00 30 12/16/18 11:05 66 16 30 Intake and Output 12/16/18 12/17/18 19:00 07:00 Intake Total 150 ml 425 ml Output Total 0 ml 0 ml Balance 150 ml 425 ml IV Total 150 ml 425 ml Tube Feeding 0 ml Output Urine Total 0 ml 0 ml # Bowel Movements 1 1 Laboratory Tests 12/16/18 14:45: Random Vancomycin Level 17.7 12/17/18 03:22: White Blood Count 15.5H, Red Blood Count 3.45L, Hemoglobin 10.8L, Hematocrit 33.8L, Mean Corpuscular Volume 98, Mean Corpuscular Hemoglobin 31.4H, Mean Corpuscular Hemoglobin Concent 32.0, Red Cell Distribution Width 17.2H, Platelet Count 161, Mean Platelet Volume 11.4H, Neutrophils (%) (Auto) , Lymphocytes (%) (Auto) , Monocytes (%) (Auto) , Eosinophils (%) (Auto) , Basophils (%) (Auto) , Sodium Level 132L, Potassium Level 4.4, Chloride Level 99 , Carbon Dioxide Level 22, Anion Gap 11, Blood Urea Nitrogen 99H, Creatinine 4.6H, Estimat Glomerular Filtration Rate 12.8, Glucose Level 78, Calcium Level 8.1L, Phosphorus Level 5.6H, Magnesium Level 2.3, Total Bilirubin 2.7H, Direct Bilirubin 2.0H, Aspartate Amino Transf (AST/SGOT) 27, Alanine Aminotransferase ( ALT/SGPT) < 6L, Alkaline Phosphatase 164H, C-Reactive Protein, Quantitative 11.7H, Pro-B-Type Natriuretic Peptide 59347T, Total Protein 6.3L, Albumin 1.5L, Globulin 4.8, Albumin/Globulin Ratio 0.3L Height (Feet): 5 Height (Inches): 4.00 Weight (Pounds): 128 General Appearance: no apparent distress Cardiovascular: normal rate Respiratory/Chest: decreased breath sounds Abdomen: distended Objective no change Alessandro Price MD Dec 17, 2018 11:02
--- NOTE | 2018-12-17 11:20 | General Progress Note ---
Assessment/Plan Assessment/Plan ASSESSMENT/RECS: # Leukocytosis/Elevated white blood cell count, unspecified likely related to underlying stress reaction, smoking, or underlying infection (in this case with esbl) --> have reviewed peripheral smear and bandemia/neutrophilia noted --> esr and crp elevated on prior labs --> continue on meropenem and vancomycin started by ID team --> monitor for resolution 28k-->21k-->24-->21k-->24-->25-->24k-->24k --> flow cytometry reviewed and is negative for abnormal clonal population of cells # Anemia of chronic disease due to underlying chronic medical issues, multifactorial --> Anemia workup has been reviewed, Ferritin 1678 --> No evidence of hemolysis is noted, peripheral smear has been reviewed. --> Hgb goal >7. Transfuse prn. --> Epogen or iron at this time is not particularly indicated --> Medications have been reviewed --> trend hgb 11-->10.8 # Thrombocytopenia is due to sepsis --> trending down currently 102k-->130k-->161k # Coagulopathy with elevated inr --> consider repeat in one week --> obtain a mixing study if pTT rises any further # Sepsis, elevated white count --> on meropenem and vancomycin, as per id --> appreciate ID recs # End-stage renal disease on hemodialysis --> appreciate nephro recs --> hd as needed # R foot infection vs UTI vs PNA --> appreciate ID recs --> right AKA 12/11/18 # Acute hypercapnic respiratory failure --> intubated --> appreciate pulm recs # Intubated The timing of this note does not necessarily reflect the time of the patient was seen. Greatly appreciate consultation! Subjective Constitutional: Denies: no symptoms, chills, diaphoresis, fever, malaise, weakness, other HEENT: Denies: no symptoms, eye pain, blurred vision, tearing, double vision, ear pain, ear discharge, nose pain, nose congestion, throat pain, throat swelling, mouth pain, mouth swelling, other Cardiovascular: Denies: no symptoms, chest pain, edema, irregular heart rate, lightheadedness, palpitations, syncope, other Respiratory: Denies: no symptoms, cough, orthopnea, shortness of breath, SOB with excertion, SOB at rest, sputum, stridor, wheezing, other Gastrointestinal/Abdominal: Denies: no symptoms, abdomen distended, abdominal pain, black stools, tarry stools, blood in stool, constipated, diarrhea, difficulty swallowing, nausea, poor appetite, poor fluid intake, rectal bleeding , vomiting, other Genitourinary: Denies: no symptoms, burning, discharge, frequency, flank pain, hematuria, incontinence, pain, urgency, other Neurologic/Psychiatric: Denies: no symptoms, anxiety, depressed, emotional problems, headache, numbness, paresthesia, pre-existing deficit, seizure, tingling, tremors, weakness, other Endocrine: Denies: no symptoms, excessive sweating, flushing, intolerance to cold, intolerance to heat, increased hunger, increased thirst, increased urine, unexplained weight gain, unexplained weight loss, other Allergies: Coded Allergies: PENICILLINS (Unverified Allergy, Mild, 12/05/18) PHENYTOIN (Verified Allergy, Unknown, 10/17/18) Uncoded Allergies: PENICILLIN (Allergy, Mild, 11/17/18) Subjective 12/07: seen by bedside, leukocytosis trending up at 24, on abx, hgb 7.6, no events 12/09: Pt is resting in bed, wbc remains elevated, 12/10: on abx, wbc is better, anemia panel reviewed, getting hd 12/11: Pt is s/p code blue, pt intubated and transferred to ICU, right AKA schedule today. wbc elevated at 24 12/12: seen by bedside, appears weak and lethargic , failed weaning, wbc elevated. 12/13: remains intubated, cards consulted, on vent, not alert 12/14: labs have been reviewed, on abx, plt lower 12/15: refusing blood sugar and they have been re-ordered 12/17: remains on boad spectrum abx, 2l nc, vanc given Objective Last 24 Hour Vital Signs Date Time Temp Pulse Resp B/P (MAP) Pulse Ox O2 Delivery O2 Flow Rate FiO2 12/17/18 04:00 Nasal Cannula 3.0 12/17/18 04:00 97.0 62 18 129/63 (85) 100 12/17/18 04:00 3.0 12/17/18 04:00 63 12/17/18 00:00 3.0 12/17/18 00:00 Nasal Cannula 3.0 12/17/18 00:00 63 12/17/18 00:00 98.6 67 16 134/68 (90) 100 12/16/18 22:15 99 Nasal Cannula 3.0 32 12/16/18 22:15 Nasal Cannula 3.0 32 12/16/18 20:00 97.1 67 16 149/91 (110) 100 12/16/18 20:00 67 12/16/18 20:00 3.0 12/16/18 20:00 Nasal Cannula 3.0 12/16/18 18:00 64 21 131/52 (78) 99 12/16/18 17:00 66 31 118/47 (70) 100 12/16/18 16:00 69 12/16/18 16:00 3.0 12/16/18 16:00 Nasal Cannula 3.0 12/16/18 16:00 98.1 68 32 124/46 (72) 100 12/16/18 15:00 69 22 128/37 (67) 100 12/16/18 14:00 69 25 122/44 (70) 100 12/16/18 13:15 Nasal Cannula 3.0 32 12/16/18 13:15 100 Nasal Cannula 3.0 32 12/16/18 13:15 82 24 Nasal Cannula 3.0 32 12/16/18 13:12 Nasal Cannula 3.0 32 12/16/18 13:00 71 26 139/56 (83) 100 12/16/18 13:00 3.0 12/16/18 12:00 Mechanical Ventilator 12/16/18 12:00 98.0 68 22 137/46 (76) 100 12/16/18 12:00 69 12/16/18 12:00 30 Intake and Output 12/16/18 12/17/18 19:00 07:00 Intake Total 150 ml 425 ml Output Total 0 ml 0 ml Balance 150 ml 425 ml IV Total 150 ml 425 ml Tube Feeding 0 ml Output Urine Total 0 ml 0 ml # Bowel Movements 1 1 Laboratory Tests 12/16/18 14:45: Random Vancomycin Level 17.7 12/17/18 03:22: White Blood Count 15.5H, Red Blood Count 3.45L, Hemoglobin 10.8L, Hematocrit 33.8L, Mean Corpuscular Volume 98, Mean Corpuscular Hemoglobin 31.4H, Mean Corpuscular Hemoglobin Concent 32.0, Red Cell Distribution Width 17.2H, Platelet Count 161, Mean Platelet Volume 11.4H, Neutrophils (%) (Auto) , Lymphocytes (%) (Auto) , Monocytes (%) (Auto) , Eosinophils (%) (Auto) , Basophils (%) (Auto) , Sodium Level 132L, Potassium Level 4.4, Chloride Level 99 , Carbon Dioxide Level 22, Anion Gap 11, Blood Urea Nitrogen 99H, Creatinine 4.6H, Estimat Glomerular Filtration Rate 12.8, Glucose Level 78, Calcium Level 8.1L, Phosphorus Level 5.6H, Magnesium Level 2.3, Total Bilirubin 2.7H, Direct Bilirubin 2.0H, Aspartate Amino Transf (AST/SGOT) 27, Alanine Aminotransferase ( ALT/SGPT) < 6L, Alkaline Phosphatase 164H, C-Reactive Protein, Quantitative 11.7H, Pro-B-Type Natriuretic Peptide [id number], Total Protein 6.3L, Albumin 1.5L, Globulin 4.8, Albumin/Globulin Ratio 0.3L Height (Feet): 5 Height (Inches): 4.00 Weight (Pounds): 128 Objective VITAL SIGNS: Reviewed GENERAL: Alert and responsiv HEAD AND NECK: Oral examination, no thrush. Neck is supple. No JVD. HEART: Regular. No gallop or murmur. ABDOMEN: Soft. Positive bowel sounds. Nt, no ogm LUNGS: Few bilateral rhonchi. No definite rales on exam. on bipap and 2l nc now SKIN: No rash. Wounds were reviewed. Extremities: right AKA as well as L Vadim Sandhu MD Dec 17, 2018 11:20
[2018-12-17 12:00] VITALS: BP 128/59
--- NOTE | 2018-12-17 12:00 | NUR ---
NURSE NOTES: [facility] nephrology notified regarding dialysis scheduled for tomorrow. Spoke with SONG Fierro.
--- NOTE | 2018-12-17 12:05 | GI Progress Note ---
Assessment/Plan Problems: (1) Anemia ICD Codes: D64.9 - Anemia, unspecified SNOMED: 958109687 (2) Anxiety disorder ICD Codes: F41.9 - Anxiety disorder, unspecified SNOMED: 177166648 (3) Sepsis ICD Codes: A41.9 - Sepsis, unspecified organism SNOMED: 81127105 (4) Acute respiratory failure ICD Codes: J96.00 - Acute respiratory failure, unspecified whether with hypoxia or hypercapnia SNOMED: 34736152 (5) Diabetes mellitus ICD Codes: E11.9 - Type 2 diabetes mellitus without complications SNOMED: 79481015 Status: unchanged Status Narrative Discussed with Dr. Salomon. Assessment/Plan Elevated residuals Dysphasia G-tube Macrocytic anemia Diarrhea - C Difff (-) Occult blood stool positive Elevated LFTs KUB negative s/p paracentesis with 6L of yield, r/o SBP Reglan 5 mg ATC Monitor H&H, PRN transfusions PPI Trend LFTs, s/p amputation persistent leukocytosis>>> fu ID The patient was seen and examined at bedside and all new and available data was reviewed in the patients chart. I agree with the above findings, impression and plan. (Patient seen earlier today. Signature stamp does not reflect patient encounter time.). - Antione Salomon MD Subjective Subjective Limited Objective Last 24 Hour Vital Signs Date Time Temp Pulse Resp B/P (MAP) Pulse Ox O2 Delivery O2 Flow Rate FiO2 12/17/18 04:00 Nasal Cannula 3.0 12/17/18 04:00 97.0 62 18 129/63 (85) 100 12/17/18 04:00 3.0 12/17/18 04:00 63 12/17/18 00:00 3.0 12/17/18 00:00 Nasal Cannula 3.0 12/17/18 00:00 63 12/17/18 00:00 98.6 67 16 134/68 (90) 100 12/16/18 22:15 99 Nasal Cannula 3.0 32 12/16/18 22:15 Nasal Cannula 3.0 32 12/16/18 20:00 97.1 67 16 149/91 (110) 100 12/16/18 20:00 67 12/16/18 20:00 3.0 12/16/18 20:00 Nasal Cannula 3.0 12/16/18 18:00 64 21 131/52 (78) 99 12/16/18 17:00 66 31 118/47 (70) 100 12/16/18 16:00 69 12/16/18 16:00 3.0 12/16/18 16:00 Nasal Cannula 3.0 12/16/18 16:00 98.1 68 32 124/46 (72) 100 12/16/18 15:00 69 22 128/37 (67) 100 12/16/18 14:00 69 25 122/44 (70) 100 12/16/18 13:15 Nasal Cannula 3.0 32 12/16/18 13:15 100 Nasal Cannula 3.0 32 12/16/18 13:15 82 24 Nasal Cannula 3.0 32 12/16/18 13:12 Nasal Cannula 3.0 32 12/16/18 13:00 71 26 139/56 (83) 100 12/16/18 13:00 3.0 Intake and Output 12/16/18 12/17/18 19:00 07:00 Intake Total 150 ml 425 ml Output Total 0 ml 0 ml Balance 150 ml 425 ml IV Total 150 ml 425 ml Tube Feeding 0 ml Output Urine Total 0 ml 0 ml # Bowel Movements 1 1 Laboratory Tests Test 12/16/18 14:45 12/17/18 03:22 Random Vancomycin Level 17.7 ug/mL White Blood Count 15.5 K/UL (4.8-10.8) H Red Blood Count 3.45 M/UL (4.70-6.10) L Hemoglobin 10.8 G/DL (14.2-18.0) L Hematocrit 33.8 % (42.0-52.0) L Mean Corpuscular Volume 98 FL (80-99) Mean Corpuscular Hemoglobin 31.4 PG (27.0-31.0) H Mean Corpuscular Hemoglobin Concent 32.0 G/DL (32.0-36.0) Red Cell Distribution Width 17.2 % (11.6-14.8) H Platelet Count 161 K/UL (150-450) Mean Platelet Volume 11.4 FL (6.5-10.1) H Neutrophils (%) (Auto) % (45.0-75.0) Lymphocytes (%) (Auto) % (20.0-45.0) Monocytes (%) (Auto) % (1.0-10.0) Eosinophils (%) (Auto) % (0.0-3.0) Basophils (%) (Auto) % (0.0-2.0) Sodium Level 132 MMOL/L (136-145) L Potassium Level 4.4 MMOL/L (3.5-5.1) Chloride Level 99 MMOL/L (98-107) Carbon Dioxide Level 22 MMOL/L (21-32) Anion Gap 11 mmol/L (5-15) Blood Urea Nitrogen 99 mg/dL (7-18) H Creatinine 4.6 MG/DL (0.55-1.30) H Estimat Glomerular Filtration Rate 12.8 mL/min (>60) Glucose Level 78 MG/DL (74-106) Calcium Level 8.1 MG/DL (8.5-10.1) L Phosphorus Level 5.6 MG/DL (2.5-4.9) H Magnesium Level 2.3 MG/DL (1.8-2.4) Total Bilirubin 2.7 MG/DL (0.2-1.0) H Direct Bilirubin 2.0 MG/DL (0.0-0.3) H Aspartate Amino Transf (AST/SGOT) 27 U/L (15-37) Alanine Aminotransferase (ALT/SGPT) < 6 U/L (12-78) L Alkaline Phosphatase 164 U/L (46-116) H C-Reactive Protein, Quantitative 11.7 mg/dL (0.00-0.90) H Pro-B-Type Natriuretic Peptide 26342 pg/mL (0-125) H Total Protein 6.3 G/DL (6.4-8.2) L Albumin 1.5 G/DL (3.4-5.0) L Globulin 4.8 g/dL Albumin/Globulin Ratio 0.3 (1.0-2.7) L Height (Feet): 5 Height (Inches): 4.00 Weight (Pounds): 128 General Appearance: WD/WN, no apparent distress, alert Cardiovascular: normal rate Respiratory/Chest: normal breath sounds, no respiratory distress Abdominal Exam: normal bowel sounds, non tender, soft Extremities: non-tender Azael Pratt ESE TEACHER Dec 17, 2018 12:05
--- NOTE | 2018-12-17 12:16 | NUR ---
RD ASSESSMENT & RECOMMENDATIONS SEE CARE ACTIVITY FOR COMPLETE ASSESSMENT DAILY ESTIMATED NEEDS: Needs based on ESRD on HD, wounds, pulmonary/ 56kg 30-35 kcals/kg 1623-3674 total kcals 1.5-2.0 g protein/kg 84-112 g total protein Fluid per MD, on HD mL/kg total fluid mLs NUTRITION DIAGNOSIS: * Increased kcal and protein needs r/t wound healing and renal dysfunction as evidenced by pt w/ partial thickness wound @ sacrum and necrotic wounds @ Right lower extremity and R foot, ESRD dx, on HD. * Swallowing difficulty R/T dysphagia, respiratory status as evidenced by LINOLEUM TILE LAYER previously recommended NPO, nonoral feedings, s/p code blue, now extubated w/ OGT in place but pt refusing TF, LINOLEUM TILE LAYER eval pending. CURRENT DIET:NPO CURRENT TF:Nepro @40ml/hr x24 hrs + PS x1 -> pt refusing TF at this time PO DIET RECOMMENDATIONS: IF SAFE FOR PO -> RENAL DIET/ texture per LINOLEUM TILE LAYER + Nepro BID ENTERAL NUTRITION RECOMMENDATIONS: IF NOT SAFE FOR PO-> Nepro @ 40ml/hr x 24 hrs + Prosource 1pkt QD to provide 960ml, 1728kcal, 77g + 11g prot, 698ml free water * Rec to continue current TF order if pt fails LINOLEUM TILE LAYER eval * HOB over 30 degrees/ water flush per MD ADDITIONAL RECOMMENDATIONS: 1) Wound healing: Nephrovite x 1, Sy 1pkt BID 2) Calibrated bedscale wt for accurate CBW- obtain dry wt post HD 3) Monitor lytes and renal fxn 4) Monitor BGs, need for hypoglycemic agents- h/o DM 5) F/up w/ LINOLEUM TILE LAYER eval 6) W/ oral diet -> Nepro 1 tetra david BID w/ meals
--- NOTE | 2018-12-17 12:29 | NUR ---
NOTE REGARDING SWALLOWING STATUS: SEE SWALLOW EVAL (LIMITED) IN CARE ACTIVITY SECTION. REFERRED FOR RE-EVAL OF SWALLOW SKILLS BY DR HEWITT AND DR BRAVO ON THE CASE 12/16/18. SEE PRIOR SWALLOW EVAL OF 12/06/18. DYSPHAGIA RISK FACTORS FOR THIS 68 Y.O.M.: ONE DAY S/P INTUBATION 12/11 TO 12/16/18 (AND OGT PULLED OUT ALSO PER PATIENT REQUEST) NO TUBE FEEDINGS PER PT ([facility]STER NOT AVAILABLE AND PHONE OUT OF SERVICE. CURRENTLY ON 3 LITERS OF 02 GOOD SATS AND RR (SEE REPORT). CURRENT CXR STATES STABLE BILATERAL INTERSTITIAL AND AIRSPACE OPACITIES AND SMALL RIGHT PLEURAL EFFUSION). INITIALLY ADMITTED 12/04/18 FOR: ACUTE WEAKNESS, SEPSIS DUE TO PNA (AND HAD HCAP 10/27 18) VS. UTI VS FOOT INFECTION, RESP DISTRESS NEEDED BIPAP DURING ADMIT AND NOW PER CHART H/O HCAP, CVA APHASIA, COPD, DM2, HTN, MDD/ANXIETY, HTN, ANEMIA, ESRD WITH HD (WEAK YESTERDAY SINCE HE DID NOT HAVE HD, CHF, MUS WEAKNESS, EMPHYSEMA, RESP FAILURE, FLUID OVERLOAD. POLST STATES NOW NO TF (PREVIOUSLY OK) AT [facility] AND [facility] WAS ON REG TEXTURE AND THIN LIQUIDS BUT GETTING NEPRO NOT CONSISTENTLY ALERT. MOSTLY EDENTULOUS (FEW TEETH). NPO EXCEPT MEDS INITIAL IMPRESSIONS: QUESTIONABLE DEGREE OF PERSISTENT AND SIGNIFICANT OROPHARYNGEAL DYSPHAGIA NOT ABLE TO ASSESS FULLY PATIENT IS NOT CONSISTENTLY ALERT FOR PO TRIALS AT THIS TIME. PER RN, PATIENT APPEARED TO TOLERATE CRUSHED MEDS WITH APPLESAUCE W/O OVERT ASPIRATION (MAY HAVE SILENT ASP RISK WHICH CANNOT BE R/O W/O MODIFIED BARIUM SWALLOW STUDY) NOT SAFE FOR PO AT THIS TIME AND LIKELY WOULD NOT TAKE ENOUGH. RECOMMENDATIONS: CONTINUE WITH NO PO INCLUDES MEDS IF POSSIBLE IF NEEDS MEDS AND CANNOT GIVE IV, CONSIDER CRUSH AND PUT IN NECTAR THICK LIQUIDS TSP ONLY) WITH POSTED ASP PRECAUTIONS. MOD BARIUM SWALLOW STUDY WHEN ALERT AND STABLE. CONTINUE WITH DYSPHAGIA MANAGEMENT AND TX NEEDS ENT TO CHECK VOCAL FOLDS SINCE NO VOICE AFTER FIRST SWALLOW EVAL. EDUCATED/TRAINED STAFF IN ORAL CARE/MEDS IF NEEDED D/W RN (RANDY) AND LEFT MESSAGE WITH DR HEWITT Addendum: 12/17/18 at 1246 by JAMIE MARTI CASH PERSON SPOKE WITH SISTER, RASHIDA, WHO SAID PATIENT IS SPEAKING TO GOD AND IS READY TO GO WITH GOD. SPOKE WITH DR HEWITT REGARDING ABOVE AND SHE AGREES. DIGITAL PRODUCTION MANAGER AND RN TALKING TO FAMILY ABOUT TAKING HIM TO .
[2018-12-17] MEDS ORDERED: Vancomycin 1 GM in D5W 275 ML IVPB ONE (13:00)
[2018-12-17 16:00] VITALS: BP 114/57
--- NOTE | 2018-12-17 17:00 | NUR ---
Social Service Note SEVERO met with patient's sister Shazia and friend Margarita at patient's bedside. CM Coordinator provided Yoruba translation. Patient only opened eyes briefly during conversation. Sister grateful to SEVERO in assisting for her to obtain visa to visit brother. POLST signed by sister yesterday indicating DNR/DNI and comfort focused care with no artificial feeding per patient request. SEVERO discussed dialysis and hospice. Sister states to further dialysis and would like patient to transition peacefully. Sister is in agreement with hospice. SEVERO contacted [facility] and spoke with the DON [phone]. Per DASIA preferred hospice is [facility]. SEVERO faxed and emailed referral to [facility] [phone] (f) . SEVERO faxed referral to [facility] [phone]. Impending dc for tomorrow. No dialysis tomorrow Dr. Garcia aware. Will follow up.
--- NOTE | 2018-12-17 17:14 | Infectious Diseases Prog Note ---
Assessment/Plan Assessment/Plan ASSESSMENT AND PLAN: 1. right ankle/foot/leg infected wound/gangrene/necrosis/?ischemia/osteomyelitis , sepsis, esbl e.coli uti, MRSA pneumonia, acinetobacter pna, leukocytosis persists, fungemia risk - s/p right aka, extubated now - vancomycin and meropenem, diflucan - d/w Dr. Price - patient now comfort care, no further abx per d/w RN - will sign off 2. The patient has end-stage renal disease on hemodialysis. He has a shunt. No hemodialysis line. 3. pvd - bilateral leg amputation 4. Anemia, hx uti 5. Elevated creatinine. 6. Renal failure. 7. The patient has history of diabetes. 8. Hypertension. 9. COPD. 10. CHF. 11. Hypertension and diabetes treatment per primary. 12. Allergies to penicillin and phenytoin, tolerates meropenem. 13. Social history is negative for smoking, alcohol, or drug abuse. 14. Family history is noncontributory. 15. MAR was noted. 16. Case discussed with RN. 17. Continue treatment per primary consultants. 18. Case communicated with Dr. Frieda Clay. 19. Orders were noted and entered. 20. Continue treatment per primary consultants. 21. mrsa and vre colonization Subjective Constitutional: Reports: fatigue; Denies: fever HEENT: Denies: congestion Respiratory: Denies: shortness of breath Cardiovascular: Denies: chest pain Gastrointestinal/Abdominal: Denies: nausea, vomiting, diarrhea Genitourinary: Reports: other - no negro Skin: Denies: rash Hematologic: Denies: bleeding Musculoskeletal: Denies: pain Allergies: Coded Allergies: PENICILLINS (Unverified Allergy, Mild, 12/05/18) PHENYTOIN (Verified Allergy, Unknown, 10/17/18) Uncoded Allergies: PENICILLIN (Allergy, Mild, 11/17/18) Objective Vital Signs Last 24 Hour Vital Signs Date Time Temp Pulse Resp B/P (MAP) Pulse Ox O2 Delivery O2 Flow Rate FiO2 12/17/18 16:00 Nasal Cannula 3.0 12/17/18 16:00 3.0 12/17/18 16:00 98.5 67 22 114/57 (76) 92 12/17/18 12:00 3.0 12/17/18 12:00 96.1 63 18 128/59 (82) 100 3/25/19 12:00 Nasal Cannula 3.0 12/17/18 12:00 63 12/17/18 08:00 95.9 60 18 125/58 (80) 100 12/17/18 08:00 62 12/17/18 08:00 Nasal Cannula 3.0 12/17/18 08:00 3.0 12/17/18 04:00 Nasal Cannula 3.0 12/17/18 04:00 97.0 62 18 129/63 (85) 100 12/17/18 04:00 3.0 12/17/18 04:00 63 12/17/18 00:00 3.0 12/17/18 00:00 Nasal Cannula 3.0 12/17/18 00:00 63 12/17/18 00:00 98.6 67 16 134/68 (90) 100 12/16/18 22:15 99 Nasal Cannula 3.0 32 12/16/18 22:15 Nasal Cannula 3.0 32 12/16/18 20:00 97.1 67 16 149/91 (110) 100 12/16/18 20:00 67 12/16/18 20:00 3.0 12/16/18 20:00 Nasal Cannula 3.0 12/16/18 18:00 64 21 131/52 (78) 99 12/16/18 17:00 66 31 118/47 (70) 100 Height (Feet): 5 Height (Inches): 4.00 Weight (Pounds): 128 General Appearance: no acute distress HEENT: normocephalic, atraumatic, anicteric, EOMI, supple, no JVD Respiratory/Chest: no accessory muscle use, crackles/rales, rhonchi - bilaterally Cardiovascular: normal rate, regular rhythm, no gallop/murmur, no JVD Abdomen: normal bowel sounds, soft, non tender, no organomegaly, non distended Genitourinary: other - no negro Extremities: other - bilateral leg amputation Skin: no rash Neurologic/Psychiatric: carpenters II-XII grossly normal, alert Lymphatic: no neck adenopathy Musculoskeletal: other - bilateral leg amputation Objective Chest x-ray - 12/07/18 - Comparison: 12/05/2018 Findings: Interim placement of a nasogastric tube, tip projecting at the level gastric fundus, proximal port probably beyond the gastroesophageal junction. Bilateral interstitial and airspace opacities appear similar to the previous study. Right arm and innominate venous stents are again demonstrated. MRI - right ankle - Impression: Marrow edema, suspicious for osteomyelitis, involving the posterior calcaneus, talus, middle and lateral cuneiforms Multiple fluid collections versus very edematous phlegmon, as described. These could represent abscesses Evidence of heel ulceration and marked thinning of the skin, consistent with stated clinical history of ulceration and necrotic wound Chest x-ray - 12/09/18 - COMPARISON: Chest x-ray dated 12/07/18 FINDINGS: Lungs: No significant interval change of bilateral interstitial and airspace opacities. Pleural space: Unremarkable. The costophrenic angles are sharp. No visible pneumothorax. Heart: Unremarkable. No cardiomegaly. Mediastinum: Unremarkable. Bones/joints: Degenerative changes throughout the visualized spine and shoulder joints. Vasculature: Unchanged positioning of the right arm and innominate vein stents. Atherosclerotic calcifications within the aortic arch. Tubes, lines and devices: Stable positioning of the NG tube. Telemetry leads overlie the thorax. IMPRESSION: No significant interval change of bilateral interstitial and airspace opacities. Chest x-ray - 12/11/18 - Procedure: XRAY Chest x-ray Comparison: 12/09/2018 A single view chest radiograph was obtained. Findings: Endotracheal tube is just above the akhil in good position. Patchy interstitial densities demonstrated. NG tube noted. SVC stent and other stents in the right upper arm demonstrated. Heart is enlarged. Bones are osteopenic. Chest x-ray - 12/13/18 - IMPRESSION: A single view chest radiograph was obtained. Findings: Slightly heterogeneous interstitial disease noted probably on the basis of heart failure. Correlate clinically. Tubes and lines are stable. IMPRESSION: Suspected mild CHF/interstitial edema. Chest x-ray - 12/15/18 - IMPRESSION: 1. Bilateral interstitial airspace opacities are similar to slightly improved from prior study. 2. Likely small right pleural effusion. Chest x-ray - 11/18/18 - COMPARISON: Chest x-ray 12/15/18 738 FINDINGS: Lungs: Stable bilateral interstitial and airspace opacities. Pleural space: Stable small right pleural effusion. No pneumothorax. Heart: Unremarkable. No cardiomegaly. Mediastinum: Unremarkable. Bones/joints: Unremarkable. Vasculature: Stable right innominate artery stent. Tubes, lines and devices: Interval removal of the NG tube. Stable endotracheal tube. IMPRESSION: 1. Interval removal of the NG tube. 2. Stable bilateral interstitial and airspace opacities. 3. Stable small right pleural effusion. Microbiology Date/Time Source Procedure Growth Status 12/05/18 01:43 Blood Blood Culture - Final NO GROWTH AFTER 5 DAYS Complete 12/14/18 10:00 Sputum Gram Stain - Final Resulted 12/14/18 10:00 Sputum Culture - Preliminary A.baumanii Complx - Mdr Resulted 12/09/18 12:30 Stool Clostridium difficile Toxin Assay - Final Complete 12/05/18 11:30 Urine,Clean Catch Urine Culture - Final Escherichia Coli - Esbl Complete 12/04/18 20:55 Rectum VRE Culture - Final Enterococcus Faecium - Vre Complete Laboratory Tests Test 12/17/18 03:22 White Blood Count 15.5 K/UL (4.8-10.8) H Red Blood Count 3.45 M/UL (4.70-6.10) L Hemoglobin 10.8 G/DL (14.2-18.0) L Hematocrit 33.8 % (42.0-52.0) L Mean Corpuscular Volume 98 FL (80-99) Mean Corpuscular Hemoglobin 31.4 PG (27.0-31.0) H Mean Corpuscular Hemoglobin Concent 32.0 G/DL (32.0-36.0) Red Cell Distribution Width 17.2 % (11.6-14.8) H Platelet Count 161 K/UL (150-450) Mean Platelet Volume 11.4 FL (6.5-10.1) H Neutrophils (%) (Auto) % (45.0-75.0) Lymphocytes (%) (Auto) % (20.0-45.0) Monocytes (%) (Auto) % (1.0-10.0) Eosinophils (%) (Auto) % (0.0-3.0) Basophils (%) (Auto) % (0.0-2.0) Sodium Level 132 MMOL/L (136-145) L Potassium Level 4.4 MMOL/L (3.5-5.1) Chloride Level 99 MMOL/L (98-107) Carbon Dioxide Level 22 MMOL/L (21-32) Anion Gap 11 mmol/L (5-15) Blood Urea Nitrogen 99 mg/dL (7-18) H Creatinine 4.6 MG/DL (0.55-1.30) H Estimat Glomerular Filtration Rate 12.8 mL/min (>60) Glucose Level 78 MG/DL (74-106) Calcium Level 8.1 MG/DL (8.5-10.1) L Phosphorus Level 5.6 MG/DL (2.5-4.9) H Magnesium Level 2.3 MG/DL (1.8-2.4) Total Bilirubin 2.7 MG/DL (0.2-1.0) H Direct Bilirubin 2.0 MG/DL (0.0-0.3) H Aspartate Amino Transf (AST/SGOT) 27 U/L (15-37) Alanine Aminotransferase (ALT/SGPT) < 6 U/L (12-78) L Alkaline Phosphatase 164 U/L (46-116) H C-Reactive Protein, Quantitative 11.7 mg/dL (0.00-0.90) H Pro-B-Type Natriuretic Peptide 01225 pg/mL (0-125) H Total Protein 6.3 G/DL (6.4-8.2) L Albumin 1.5 G/DL (3.4-5.0) L Globulin 4.8 g/dL Albumin/Globulin Ratio 0.3 (1.0-2.7) L Current Medications Medications (Trade) Dose Ordered Sig/Ronald Route PRN Reason Start Time Stop Time Status Last Admin Dose Admin Artificial Tears (Akwa-Tears) 1 drop QIDPRN PRN BOTH EYES dry eyes 12/17/18 00:00 01/14/19 00:00 Dextrose 1,000 ml @ 30 mls/hr Q24H IV 12/16/18 22:30 01/15/19 12:59 Dextrose (Dextrose 50%) 25 ml Q30M PRN IV Hypoglycemia 12/16/18 22:45 01/03/19 22:44 Dextrose (Dextrose 50%) 50 ml Q30M PRN IV Hypoglycemia 12/16/18 22:45 01/03/19 22:44 Docusate Sodium (Colace) 200 mg DAILY NG 12/17/18 09:00 01/10/19 08:59 12/17/18 09:56 Fluconazole/ Sodium Chloride 100 ml @ 100 mls/hr Q24H IV 12/16/18 23:00 12/22/18 22:59 12/16/18 23:46 Hydromorphone HCl (Dilaudid) 0.5 mg Q4H PRN IVP For Pain 12/16/18 23:45 12/19/18 11:44 Lansoprazole (Prevacid) 30 mg BID NG 12/17/18 09:00 01/08/19 08:59 12/17/18 09:57 Lorazepam (Ativan 2mg/ml 1ml) 2 mg Q4H PRN IV For Anxiety 12/17/18 01:00 12/18/18 08:59 Meropenem 500 mg/ Sodium Chloride 55 ml @ 110 mls/hr Q24H IVPB 12/17/18 21:00 12/18/18 20:59 Metoclopramide HCl (Reglan) 5 mg Q8H PRN IVP Nausea & Vomiting 12/17/18 01:00 01/10/19 08:59 Morphine Sulfate (Morphine Sulfate) 4 mg Q4H PRN IVP SEVERE BREAKTHROUGH PAIN 12/17/18 01:00 12/18/18 08:59 Povidone Iodine (Betadine María) 1 applic QHS TOPIC 12/17/18 21:00 01/05/19 20:59 Pyridoxine HCl (Vitamin B6) 25 mg DAILY NG 12/17/18 09:00 01/07/19 08:59 12/17/18 09:57 Sevelamer Carbonate (Renvela) 800 mg THREE TIMES A DAY NG 12/17/18 09:00 01/07/19 08:59 12/17/18 13:42 Anshu Munguia MD Dec 17, 2018 17:14
--- NOTE | 2018-12-17 17:18 | NUR ---
NURSE NOTES: Dialysis canceled because patient is comfort care awaiting hospice placement. SONG Fierro and [facility] dialysis notified.
--- NOTE | 2018-12-17 18:45 | NUR ---
NURSE NOTES: Patient cleaned and turned at this time.
--- NOTE | 2018-12-17 19:15 | NUR ---
HAND-OFF: Report given to SONG Gutierrez. Patient VS stable at this time with no sign of acute distress. Patient had a blood sugar of 69 at 1830. Patient given orange juice at 1845. Endorsed to reassess blood sugar. Patient also given applesauce at 1845.
--- NOTE | 2018-12-17 19:15 | NUR ---
NURSE NOTES: Report received from Joan Timmons RN. Patient seen in bed in semi thompson position. Alert, verbally responsive, able to make needs known. Denies any pain at this time. Currently patient is on Room air and sp02 is 98%. Patient has Right AKA with sindhu at this time. Iv site to left FA 20g and is intact. IVF of D10w running 30cc/hr. No acute distress is present at this time. Bed is in lowest position. Call light is within easy reach while in bed. Will continue to monitor
[2018-12-17 20:00] VITALS: BP 123/65
--- NOTE | 2018-12-17 20:00 | NUR ---
NURSE NOTES: Patient was transferred to MED/SURG room 417-2 via bed accompanied by 2 RN and 1 DATA PROGRAMMER. Report given at bed side to SONG Go. Patient is in stable condition at this time.
--- NOTE | 2018-12-17 20:00 | NUR ---
NURSE NOTES: Pt is transferred from [facility] in stable condition. Pt is awake and verbal. Vitals stable. Pt is on 2L nasal canula. Report received from SONG Dietrich. Per Kaur, pt is comfort care only. Wound dressing are dry and intact. Pt is oriented to the unit. Belongings checked. Bed low in position,side rails up and call light within reach. Pt will be monitored.
[2018-12-17] MEDS ORDERED: Hydromorphone 0.5mg/0.5ml inj IVP PRN (20:22)
[2018-12-17] MEDS ORDERED: Artificial Tears 1.4% Op Soln BOTH EYES PRN ×2 (20:22)
[2018-12-17] MEDS ORDERED: Betadine 4oz Bottle TOPIC SCH (21:00)
[2018-12-17] MEDS ORDERED: Meropenem 500 MG in NS 55 ML IVPB SCH ×4 (21:00)
[2018-12-17] MEDS: Dextrose 10% 1,000 ML IV SCH (22:07)
--- NOTE | 2018-12-17 22:07 | General Progress Note ---
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 12/11/18 -Cont vancomycin and meropenen -Pt with good mental status, -Pulmonary consult noted, -ID consult noted, cont broad spectrum IV abx -Surgery consult appreciated, rec amputation, -MRI right foot and ankle: +osteomyelitis and fluid collection likely abscess -Vascular and podiatry consult appreciated -daily care per surgery -Cont pain management - monitor BP -s/p R AKA #Troponemia likely 2/2 type 2 NSTEMI -Trend trop and EKG - unremarkable -cardiology consult appreciated #Leukocytosis likly 2/2 infection -Flow cytometry pending -Hematology consult appreciated #Dysphagia -GI consult appreciated -repeat swallow study s/p extubation #DM now hypoglycemic -hypoglycemia likley 2/2 sepsis -hold antiDM medications -FSG Q6hrs -Monitor respiratory status #ESRD on HD (MWF) via R arm fistula #HyperKalemia #HypoNA -no signs of fluid overload -nephrology consult appreciated -CTM electrolytes -HD per renal -Last HD 12/10 #Ascites -s/p paracenthesis 6 removed -s/p albumin Code: DNR/DNI I spent 45 min on this patients care, and 38 min was dedicated to counseling and /or care coordination Time of note may not represent time of encounter Subjective Date patient seen: Dec 17, 2018 Allergies: Coded Allergies: PENICILLINS (Unverified Allergy, Mild, 12/05/18) PHENYTOIN (Verified Allergy, Unknown, 10/17/18) Uncoded Allergies: PENICILLIN (Allergy, Mild, 11/17/18) Subjective S/P R AKA, BP stable, pt somnolent, awakes to verbal stimuli Objective Last 24 Hour Vital Signs Date Time Temp Pulse Resp B/P (MAP) Pulse Ox O2 Delivery O2 Flow Rate FiO2 12/17/18 16:00 Nasal Cannula 3.0 12/17/18 16:00 3.0 12/17/18 16:00 98.5 67 22 114/57 (76) 92 12/17/18 15:26 66 12/17/18 12:00 3.0 12/17/18 12:00 96.1 63 18 128/59 (82) 100 12/17/18 12:00 Nasal Cannula 3.0 12/17/18 12:00 63 12/17/18 08:00 95.9 60 18 125/58 (80) 100 12/17/18 08:00 62 12/17/18 08:00 Nasal Cannula 3.0 12/17/18 08:00 3.0 12/17/18 04:00 Nasal Cannula 3.0 12/17/18 04:00 97.0 62 18 129/63 (85) 100 12/17/18 04:00 3.0 12/17/18 04:00 63 12/17/18 00:00 3.0 12/17/18 00:00 Nasal Cannula 3.0 12/17/18 00:00 63 12/17/18 00:00 98.6 67 16 134/68 (90) 100 12/16/18 22:15 99 Nasal Cannula 3.0 32 12/16/18 22:15 Nasal Cannula 3.0 32 Intake and Output 12/16/18 12/17/18 19:00 07:00 Intake Total 150 ml 455 ml Output Total 0 ml 0 ml Balance 150 ml 455 ml IV Total 150 ml 455 ml Tube Feeding 0 ml Output Urine Total 0 ml 0 ml # Bowel Movements 1 1 Laboratory Tests 12/17/18 03:22: White Blood Count 15.5H, Red Blood Count 3.45L, Hemoglobin 10.8L, Hematocrit 33.8L, Mean Corpuscular Volume 98, Mean Corpuscular Hemoglobin 31.4H, Mean Corpuscular Hemoglobin Concent 32.0, Red Cell Distribution Width 17.2H, Platelet Count 161, Mean Platelet Volume 11.4H, Neutrophils (%) (Auto) , Lymphocytes (%) (Auto) , Monocytes (%) (Auto) , Eosinophils (%) (Auto) , Basophils (%) (Auto) , Sodium Level 132L, Potassium Level 4.4, Chloride Level 99 , Carbon Dioxide Level 22, Anion Gap 11, Blood Urea Nitrogen 99H, Creatinine 4.6H, Estimat Glomerular Filtration Rate 12.8, Glucose Level 78, Calcium Level 8.1L, Phosphorus Level 5.6H, Magnesium Level 2.3, Total Bilirubin 2.7H, Direct Bilirubin 2.0H, Aspartate Amino Transf (AST/SGOT) 27, Alanine Aminotransferase ( ALT/SGPT) < 6L, Alkaline Phosphatase 164H, C-Reactive Protein, Quantitative 11.7H, Pro-B-Type Natriuretic Peptide 23365W, Total Protein 6.3L, Albumin 1.5L, Globulin 4.8, Albumin/Globulin Ratio 0.3L Height (Feet): 5 Height (Inches): 4.00 Weight (Pounds): 128 Objective General: calm, appears stated age, Head: normocephalic, without obvious abnormality, atraumatic Eyes: conjunctivae/corneas clear. PERRL, EOM's intact Throat: lips, mucosa, and tongue normal. MMM Neck: supple, symmetrical, trachea midline, and no JVD Lungs: b/l air entry Heart: regular rate and rhythm, S1, S2 normal, no murmur, click, rub or gallop Abdomen: soft, non-tender, non-distended, bowel sounds normal; no masses or organomegaly Extremities: L BKA, R AKA with sindhu, healing well, no signs of infection Pulses: +1 pulse Skin: skin color, texture, turgor normal; no rashes or lesions Neurologic: grossly normal Frieda Miller MD Dec 17, 2018 22:07
[2018-12-17] MEDS: Betadine 4oz Bottle TOPIC SCH (22:14)
[2018-12-18] VITALS: BP 137/55
[2018-12-18 04:00] VITALS: BP 135/74
--- NOTE | 2018-12-18 07:20 | NUR ---
HAND-OFF: Report given to Ruth Pabon RN.Pt is awake alert and verbal. No acute distress noted. Informed Ruth to get a diet order for patient.
--- NOTE | 2018-12-18 07:21 | NUR ---
NURSE NOTES: Received patient awake, alert and oriented, sitting up comfortably in bed. IV site at left forearm, 20 gauge, infusing dextrose 10 with water @ 30ml/hour. Nasal cannula @ 3L/min. Bed at lowest level with 3 side rails up. Call light within reach. In no apparent distress at this time. Will continue to monitor.
[2018-12-18 08:00] VITALS: BP 142/74
--- NOTE | 2018-12-18 09:10 | General Progress Note ---
Assessment/Plan Problem List: (1) S/P BKA (below knee amputation) ICD Codes: Z89.519 - Acquired absence of unspecified leg below knee SNOMED: 69864960, 647452842 (2) Hx of BKA ICD Codes: Z89.519 - Acquired absence of unspecified leg below knee SNOMED: 673215191, 979128161 (3) Severe sepsis ICD Codes: A41.9 - Sepsis, unspecified organism; R65.20 - Severe sepsis without septic shock SNOMED: 18355172 (4) Diabetes mellitus ICD Codes: E11.9 - Type 2 diabetes mellitus without complications SNOMED: 40266701 (5) ESRF (end stage renal failure) ICD Codes: N18.6 - End stage renal disease SNOMED: 63973186 (6) Leukocytosis ICD Codes: D72.829 - Elevated white blood cell count, unspecified SNOMED: 706919430, 316789106 (7) CHF (congestive heart failure) ICD Codes: I50.9 - Heart failure, unspecified SNOMED: 65175119 (8) Anemia ICD Codes: D64.9 - Anemia, unspecified SNOMED: 830608772 Assessment/Plan comfort measure per patient request swallow eval for today Subjective ROS Limited/Unobtainable: Yes Allergies: Coded Allergies: PENICILLINS (Unverified Allergy, Mild, 12/05/18) PHENYTOIN (Verified Allergy, Unknown, 10/17/18) Uncoded Allergies: PENICILLIN (Allergy, Mild, 11/17/18) Objective Last 24 Hour Vital Signs Date Time Temp Pulse Resp B/P (MAP) Pulse Ox O2 Delivery O2 Flow Rate FiO2 12/18/18 04:00 96.7 67 18 135/74 (94) 97 12/18/18 04:00 Nasal Cannula 3.0 12/18/18 02:23 100 Nasal Cannula 3.0 32 12/18/18 02:23 Nasal Cannula 3.0 32 12/18/18 00:00 98.0 65 19 137/55 (82) 100 12/18/18 00:00 Nasal Cannula 3.0 12/17/18 20:00 98.0 63 16 123/65 (84) 98 12/17/18 20:00 Nasal Cannula 3.0 12/17/18 16:00 Nasal Cannula 3.0 12/17/18 16:00 3.0 12/17/18 16:00 98.5 67 22 114/57 (76) 92 12/17/18 15:26 66 12/17/18 12:00 3.0 12/17/18 12:00 96.1 63 18 128/59 (82) 100 12/17/18 12:00 Nasal Cannula 3.0 12/17/18 12:00 63 Intake and Output 12/17/18 12/18/18 19:00 07:00 Intake Total 635.000 ml 425 ml Output Total 0 ml Balance 635.000 ml 425 ml IV Total 635.000 ml 425 ml Output Urine Total 0 ml # Bowel Movements 4 Height (Feet): 5 Height (Inches): 4.00 Weight (Pounds): 129 General Appearance: alert EENT: normal ENT inspection Neck: normal alignment Cardiovascular: normal rate Respiratory/Chest: decreased breath sounds Abdomen: normal bowel sounds, non tender, soft Extremities: non-tender Antione Salomon MD Dec 18, 2018 09:10
[2018-12-18] MEDS: Pyridoxine 50mg tab NG SCH (10:04)
[2018-12-18] MEDS: Renvela 800mg Pkt NG SCH ×3 (10:04→18:18)
[2018-12-18] MEDS: Docusate 100mg/10ml Liq NG SCH (10:04)
--- NOTE | 2018-12-18 10:13 | NUR ---
*-* DISCHARGE PLANNING *-* PATIENT HAS BEEN REFERRED BACK TO: [facility] P:[phone] F:[phone] Addendum: 12/18/18 at 1213 by TERESA GARCIA SPOKE WITH [facility] STATED PER DNO THEY ARE NOT ACCEPTING THE PATIENT DUE TO NON-COMPLIANCE
--- NOTE | 2018-12-18 10:15 | NUR ---
Social Service Note SEVERO and Dr. Torres met with patient. Patient today has indicated he would like to continue with dialysis and remain DNR/DNI. SW updated correction that patient will continue with dialysis, [facility] [phone]. SEVERO informed [facility] to hold referral at this time.
[2018-12-18 12:00] VITALS: BP 144/75
--- NOTE | 2018-12-18 12:14 | NUR ---
*-* DISCHARGE PLANNING *-* PATIENT HAS BEEN REFERRED TO: [facility] P:[phone] F:[phone]
--- NOTE | 2018-12-18 12:44 | Pulmonology Progress Note ---
Assessment/Plan Problems: (1) Acute respiratory failure (2) Severe sepsis (3) ESRF (end stage renal failure) (4) Diabetes mellitus (5) Decubitus ulcer of right heel, stage 4 (6) Acute metabolic encephalopathy (7) S/P BKA (below knee amputation) (8) End stage liver disease (9) Ascites Assessment/Plan afebrile wbc lower PRBC ordered sputum has Staph aureus, MRSA on Meropenen and Diflucan Urine has ESBL off bipap, tolerating nasal cannula dvt prophylaxis. aspiration precaution f/u cultures swallow evaluation dc planning Subjective ROS Limited/Unobtainable: No Constitutional: Reports: no symptoms HEENT: Repors: no symptoms Allergies: Coded Allergies: PENICILLINS (Unverified Allergy, Mild, 12/05/18) PHENYTOIN (Verified Allergy, Unknown, 10/17/18) Uncoded Allergies: PENICILLIN (Allergy, Mild, 11/17/18) Objective Last 24 Hour Vital Signs Date Time Temp Pulse Resp B/P (MAP) Pulse Ox O2 Delivery O2 Flow Rate FiO2 12/18/18 12:00 97.1 60 16 144/75 (98) 96 12/18/18 09:00 Nasal Cannula 3.0 12/18/18 08:00 97.2 65 18 142/74 (96) 96 12/18/18 08:00 Nasal Cannula 3.0 12/18/18 04:00 96.7 67 18 135/74 (94) 97 12/18/18 04:00 Nasal Cannula 3.0 12/18/18 02:23 100 Nasal Cannula 3.0 32 12/18/18 02:23 Nasal Cannula 3.0 32 12/18/18 00:00 98.0 65 19 137/55 (82) 100 12/18/18 00:00 Nasal Cannula 3.0 12/17/18 20:00 98.0 63 16 123/65 (84) 98 12/17/18 20:00 Nasal Cannula 3.0 12/17/18 16:00 Nasal Cannula 3.0 12/17/18 16:00 3.0 12/17/18 16:00 98.5 67 22 114/57 (76) 92 12/17/18 15:26 66 Intake and Output 12/17/18 12/18/18 19:00 07:00 Intake Total 635.000 ml 425 ml Output Total 0 ml Balance 635.000 ml 425 ml IV Total 635.000 ml 425 ml Output Urine Total 0 ml # Bowel Movements 4 General Appearance: cachetic HEENT: normocephalic Respiratory/Chest: chest wall non-tender, lungs clear Cardiovascular: normal peripheral pulses, normal rate Abdomen: normal bowel sounds, no organomegaly Microbiology Date/Time Source Procedure Growth Status 12/16/18 05:30 Blood Blood Culture - Preliminary NO GROWTH AFTER 24 HOURS Resulted Current Medications Medications (Trade) Dose Ordered Sig/Ronald Route PRN Reason Start Time Stop Time Status Last Admin Dose Admin Artificial Tears (Akwa-Tears) 1 drop QIDPRN PRN BOTH EYES dry eyes 12/17/18 20:22 01/16/19 20:21 Dextrose 1,000 ml @ 30 mls/hr Q24H IV 12/17/18 20:30 01/15/19 12:59 12/17/18 22:07 Dextrose (Dextrose 50%) 25 ml Q30M PRN IV Hypoglycemia 12/17/18 20:45 01/03/19 22:44 Dextrose (Dextrose 50%) 50 ml Q30M PRN IV Hypoglycemia 12/17/18 20:45 01/03/19 22:44 Docusate Sodium (Colace) 200 mg DAILY NG 12/18/18 09:00 01/10/19 08:59 12/18/18 10:04 Fluconazole/ Sodium Chloride 100 ml @ 100 mls/hr Q24H IV 12/18/18 23:00 12/25/18 22:59 Hydromorphone HCl (Dilaudid) 0.5 mg Q4H PRN IVP For Pain 12/17/18 20:22 12/24/18 20:21 Lansoprazole (Prevacid) 30 mg BID NG 12/18/18 09:00 01/08/19 08:59 12/18/18 10:05 Lorazepam (Ativan 2mg/ml 1ml) 2 mg Q4H PRN IV For Anxiety 12/17/18 20:23 12/24/18 20:22 Meropenem 500 mg/ Sodium Chloride 55 ml @ 110 mls/hr Q24H IVPB 12/18/18 21:00 12/23/18 20:59 Metoclopramide HCl (Reglan) 5 mg Q8H PRN IVP Nausea & Vomiting 12/17/18 20:23 01/16/19 20:22 Morphine Sulfate (Morphine Sulfate) 4 mg Q4H PRN IVP SEVERE BREAKTHROUGH PAIN 12/17/18 20:23 12/24/18 20:22 Polymyxin B Sulfate 969086 units/Dextrose 275 ml @ 275 mls/hr EVERY 12 HOURS IV 12/19/18 09:00 12/26/18 08:59 Polymyxin B Sulfate 948886 units/Dextrose 550 ml @ 550 mls/hr EVERY 12 HOURS IV 12/18/18 13:00 12/18/18 23:59 Povidone Iodine (Betadine María) 1 applic QHS TOPIC 12/17/18 21:00 01/05/19 20:59 12/17/18 22:14 Pyridoxine HCl (Vitamin B6) 25 mg DAILY NG 12/18/18 09:00 01/07/19 08:59 12/18/18 10:04 Sevelamer Carbonate (Renvela) 800 mg THREE TIMES A DAY NG 12/18/18 09:00 01/07/19 08:59 12/18/18 10:04 Tamia Lerma MD Dec 18, 2018 12:44
--- NOTE | 2018-12-18 13:01 | Nephrology Progress Note ---
Assessment/Plan Problem List: (1) ESRF (end stage renal failure) (2) Leukocytosis Assessment: sepsis (3) CHF (congestive heart failure) (4) Acute respiratory failure (5) Hyperbilirubinemia (6) Elevated troponin I level Assessment admitted with sepsis and shortness of breath (1) ESRD (end stage renal disease) right arm fistula (2) Possible Fluid overload, unspecified (3) h/o Bradycardia (4) Anemia (5) h/o Pleural effusion (6) Elevated troponin (7) Allergy Dialntin & PCN (8) Elevated Bili Plan blood work OK intubated on Vent HD last 12/14 next 12/18 - patient wants to continue dialysis on Meropenem , Vanco- I will dose Vanco- redose 12/17 IV bolus as needed adjust BP meds 2D Echo 55% EjFx stop beta blockers for low HR hydralazin and procardia as needed reviewe CXR : Pneumonia per consultants Subjective ROS Limited/Unobtainable: No Constitutional: Reports: malaise, weakness Objective Objective Last 24 Hour Vital Signs Date Time Temp Pulse Resp B/P (MAP) Pulse Ox O2 Delivery O2 Flow Rate FiO2 12/18/18 12:00 97.1 60 16 144/75 (98) 96 12/18/18 09:00 Nasal Cannula 3.0 12/18/18 08:00 97.2 65 18 142/74 (96) 96 12/18/18 08:00 Nasal Cannula 3.0 12/18/18 04:00 96.7 67 18 135/74 (94) 97 12/18/18 04:00 Nasal Cannula 3.0 12/18/18 02:23 100 Nasal Cannula 3.0 32 12/18/18 02:23 Nasal Cannula 3.0 32 12/18/18 00:00 98.0 65 19 137/55 (82) 100 12/18/18 00:00 Nasal Cannula 3.0 12/17/18 20:00 98.0 63 16 123/65 (84) 98 12/17/18 20:00 Nasal Cannula 3.0 12/17/18 16:00 Nasal Cannula 3.0 12/17/18 16:00 3.0 12/17/18 16:00 98.5 67 22 114/57 (76) 92 12/17/18 15:26 66 Intake and Output 12/17/18 12/18/18 19:00 07:00 Intake Total 635.000 ml 425 ml Output Total 0 ml Balance 635.000 ml 425 ml IV Total 635.000 ml 425 ml Output Urine Total 0 ml # Bowel Movements 4 Height (Feet): 5 Height (Inches): 4.00 Weight (Pounds): 129 General Appearance: no apparent distress Cardiovascular: normal rate Respiratory/Chest: decreased breath sounds Abdomen: distended Objective no change Alessandro Price MD Dec 18, 2018 13:01
[2018-12-18] MEDS: Polymyxin B Sulfate 500,000 units in D5W 550ml IV SCH ×2 (13:33→23:06)
--- NOTE | 2018-12-18 13:39 | NUR ---
ST NOTE: SWALLOW/SPEECH/COGNITION STATUS: FOLLOWED UP PT'S CONDITIONS. PT SEEN AT BEDSIDE IN PM. ALERT, COOPERATIVE, ABLE TO EXPRESS WANTS AND NEEDS VERBALLY, FOLLOWS DIRECTIONS. PT'S SISTER IS AT BEDSIDE. VOICE SEEMS SLIGHTLY LOW VOLUME AND HOARSE. PER RNYUMIKO, PT WAS ABLE TO TOLERATE CRUSHED MED WITH PUREED WITHOUT OVERT S/S OF ASPIRATION. GIVEN PO TRIALS: NECTAR THICK LIQUIDS VIA TSP. PT EDENTULOUS, MILDLY INCREASED ORAL TRANSIT TIME AND OROPHARYNGEAL TRANSIT TIME, FAIR LARYNGEAL ELEVATION, NO OVERT S/S OF ASPIRATION. DUE TO SCHEDULING CONFLICT, UNABLE TO COMPLETE MODIFIED BARIUM SWALLOW STUDY AT THIS TIME FOR QUALITY OF LIFE, SLOWLY INITIATE THE SAFEST DIET, LIQUIFIED PUREED, LIKE NECTAR THICK SOUP CONSISTENCY WITH NECTAR THICK LIQUIDS WITH 1TO1 FEEDING. POSTED ASPIRATION PRECAUTIONS SIGN D/W THE STAFF
--- NOTE | 2018-12-18 14:49 | General Progress Note ---
Assessment/Plan Assessment/Plan ASSESSMENT/RECS: # Leukocytosis/Elevated white blood cell count, unspecified likely related to underlying stress reaction, smoking, or underlying infection (in this case with esbl) --> have reviewed peripheral smear and bandemia/neutrophilia noted --> esr and crp elevated on prior labs --> continue on meropenem and vancomycin started by ID team --> monitor for resolution 28k-->21k-->24-->21k-->24-->25-->24k-->24k-->16k --> flow cytometry reviewed and is negative for abnormal clonal population of cells # Anemia of chronic disease due to underlying chronic medical issues, multifactorial --> Anemia workup has been reviewed, Ferritin 1678 --> No evidence of hemolysis is noted, peripheral smear has been reviewed. --> Hgb goal >7. Transfuse prn. --> Epogen or iron at this time is not particularly indicated --> Medications have been reviewed --> trend hgb 11-->10.8-->10.8 # Thrombocytopenia is due to sepsis --> trending down currently 102k-->130k-->161k # Coagulopathy with elevated inr --> consider repeat in one week --> obtain a mixing study if pTT rises any further # Sepsis, elevated white count --> on meropenem and vancomycin, as per id --> appreciate ID recs # End-stage renal disease on hemodialysis --> appreciate nephro recs --> hd as needed # R foot infection vs UTI vs PNA --> appreciate ID recs --> right AKA 12/11/18 # Acute hypercapnic respiratory failure --> intubated --> appreciate pulm recs # Intubated The timing of this note does not necessarily reflect the time of the patient was seen. Greatly appreciate consultation! Subjective Allergies: Coded Allergies: PENICILLINS (Unverified Allergy, Mild, 12/05/18) PHENYTOIN (Verified Allergy, Unknown, 10/17/18) Uncoded Allergies: PENICILLIN (Allergy, Mild, 11/17/18) Subjective 12/07: seen by bedside, leukocytosis trending up at 24, on abx, hgb 7.6, no events 12/09: Pt is resting in bed, wbc remains elevated, 12/10: on abx, wbc is better, anemia panel reviewed, getting hd 12/11: Pt is s/p code blue, pt intubated and transferred to ICU, right AKA schedule today. wbc elevated at 24 12/12: seen by bedside, appears weak and lethargic , failed weaning, wbc elevated. 12/13: remains intubated, cards consulted, on vent, not alert 12/14: labs have been reviewed, on abx, plt lower 12/15: refusing blood sugar and they have been re-ordered 12/17: remains on boad spectrum abx, 2l nc, vanc given 12/18: remains on abx, ivf, 2L nc, no complaints currently Objective Last 24 Hour Vital Signs Date Time Temp Pulse Resp B/P (MAP) Pulse Ox O2 Delivery O2 Flow Rate FiO2 12/18/18 12:00 97.1 60 16 144/75 (98) 96 12/18/18 09:39 98 Nasal Cannula 3.0 32 12/18/18 09:39 Nasal Cannula 3.0 32 12/18/18 09:00 Nasal Cannula 3.0 12/18/18 08:00 97.2 65 18 142/74 (96) 96 12/18/18 08:00 Nasal Cannula 3.0 12/18/18 04:00 96.7 67 18 135/74 (94) 97 12/18/18 04:00 Nasal Cannula 3.0 12/18/18 02:23 100 Nasal Cannula 3.0 32 12/18/18 02:23 Nasal Cannula 3.0 32 12/18/18 00:00 98.0 65 19 137/55 (82) 100 12/18/18 00:00 Nasal Cannula 3.0 12/17/18 20:00 98.0 63 16 123/65 (84) 98 12/17/18 20:00 Nasal Cannula 3.0 12/17/18 16:00 Nasal Cannula 3.0 12/17/18 16:00 3.0 12/17/18 16:00 98.5 67 22 114/57 (76) 92 12/17/18 15:26 66 Intake and Output 12/17/18 12/18/18 19:00 07:00 Intake Total 635.000 ml 425 ml Output Total 0 ml Balance 635.000 ml 425 ml IV Total 635.000 ml 425 ml Output Urine Total 0 ml # Bowel Movements 4 Height (Feet): 5 Height (Inches): 4.00 Weight (Pounds): 129 Objective VITAL SIGNS: Reviewed GENERAL: Alert and responsiv HEAD AND NECK: Oral examination, no thrush. Neck is supple. No JVD. HEART: Regular. No gallop or murmur. ABDOMEN: Soft. Positive bowel sounds. Nt, no ogm LUNGS: Few bilateral rhonchi. No definite rales on exam. on bipap and 2l nc now SKIN: No rash. Wounds were reviewed. Extremities: right AKA as well as L Vadim Sandhu MD Dec 18, 2018 14:49
--- NOTE | 2018-12-18 15:52 | General Progress Note ---
Progress Note Progress Note family here from [place]. spoke with them all at bedside. he is fully awake and alert today. he looks much better and has significantly improved we discussed care and how he is doing we discussed plans we discussed how surgery went patient says "thank you" to myself and all staff family thankful and state he always wanted to live as long as possible they are planning to take him to [place] soon staple removal in 6-8 weeks. plans given to family for care Damian Michaels Dec 18, 2018 15:52
[2018-12-18 16:00] VITALS: BP 147/60
[2018-12-18] MEDS ORDERED: NS 275ml ONE (18:57)
--- NOTE | 2018-12-18 19:17 | Diagnostic Imaging Report ---
APPROVED REPORT CPT Code: 88856 Present Symptoms Comments: RIGHT ARM PAIN. RIGHT UPPER EXTREMITY: Venous imaging reveals patency of the internal jugular, subclavian, axillary and brachial veins. The cephalic and basilic veins are also patent. Doppler indicates normal spontaneous flow within these venous segments.
--- NOTE | 2018-12-18 19:18 | NUR ---
HAND-OFF: Report given to SONG Ram.
[2018-12-18 20:00] VITALS: BP 141/70
--- NOTE | 2018-12-18 20:30 | NUR ---
NURSE NOTES: Pt is in bed, awake and alert. No acute distress noted. No SOB. Pt is on 5L n/c, 02 sat @ 100%. HD is being done by [facility] HD service. Vitals stable. Wound dressing dry and intact. Bed low in position,side rails up and call light within reach. Pt will be monitored.
[2018-12-18] MEDS ORDERED: Meropenem 500 MG in NS 55 ML IVPB SCH (21:00)
[2018-12-18] MEDS ORDERED: Tubing IV Secondary IV ONE (21:23)
[2018-12-18] MEDS: Dextrose 10% 1,000 ML IV SCH (22:09)
[2018-12-18] MEDS: Betadine 4oz Bottle TOPIC SCH (22:09)
--- NOTE | 2018-12-18 22:50 | General Progress Note ---
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 12/11/18 -Cont vancomycin and meropenen -Pt with good mental status, awake and alert this AM -Pulmonary consult noted, -ID consult noted, cont broad spectrum IV abx -Surgery consult appreciated, rec amputation, -MRI right foot and ankle: +osteomyelitis and fluid collection likely abscess -Vascular and podiatry consult appreciated -daily care per surgery -Cont pain management - monitor BP -s/p R AKA #Troponemia likely 2/2 type 2 NSTEMI -Trend trop and EKG - unremarkable -cardiology consult appreciated #Leukocytosis likly 2/2 infection -Flow cytometry pending -Hematology consult appreciated #Dysphagia -GI consult appreciated -repeat swallow study s/p extubation #DM -hold antiDM medications -FSG Q6hrs -Monitor respiratory status #ESRD on HD (MWF) via R arm fistula #HyperKalemia #HypoNA -no signs of fluid overload -nephrology consult appreciated -CTM electrolytes -HD per renal -Last HD 12/10 #Ascites -s/p paracenthesis 6 removed -s/p albumin #Goals of care -pt awake and alert, states he agrees with DNR/DNI status, states that he would like to continue with dialysis and medical treatment Code: DNR/DNI I spent 45 min on this patients care, and 38 min was dedicated to counseling and /or care coordination Time of note may not represent time of encounter Subjective Date patient seen: Dec 18, 2018 Allergies: Coded Allergies: PENICILLINS (Unverified Allergy, Mild, 12/05/18) PHENYTOIN (Verified Allergy, Unknown, 10/17/18) Uncoded Allergies: PENICILLIN (Allergy, Mild, 11/17/18) Subjective Pt awake and alert this AM, discussed code status and goals of care with SW at bedside, pt agreed to DNR/DNI, states that he still wants to continue with dialysis. Objective Last 24 Hour Vital Signs Date Time Temp Pulse Resp B/P (MAP) Pulse Ox O2 Delivery O2 Flow Rate FiO2 12/18/18 20:00 97.1 73 18 141/70 (93) 100 12/18/18 16:00 98.1 67 19 147/60 (89) 98 12/18/18 15:38 97.1 12/18/18 12:00 97.1 60 16 144/75 (98) 96 12/18/18 09:39 98 Nasal Cannula 3.0 32 12/18/18 09:39 Nasal Cannula 3.0 32 12/18/18 09:00 Nasal Cannula 3.0 12/18/18 08:00 97.2 65 18 142/74 (96) 96 12/18/18 08:00 Nasal Cannula 3.0 12/18/18 04:00 96.7 67 18 135/74 (94) 97 12/18/18 04:00 Nasal Cannula 3.0 12/18/18 02:23 100 Nasal Cannula 3.0 32 12/18/18 02:23 Nasal Cannula 3.0 32 12/18/18 00:00 98.0 65 19 137/55 (82) 100 12/18/18 00:00 Nasal Cannula 3.0 Intake and Output 12/17/18 12/18/18 19:00 07:00 Intake Total 635.000 ml 425 ml Output Total 0 ml Balance 635.000 ml 425 ml IV Total 635.000 ml 425 ml Output Urine Total 0 ml # Bowel Movements 4 Height (Feet): 5 Height (Inches): 4.00 Weight (Pounds): 129 Objective General: calm, appears stated age, awake alert Head: normocephalic, without obvious abnormality, atraumatic Eyes: conjunctivae/corneas clear. PERRL, EOM's intact Throat: lips, mucosa, and tongue normal. MMM Neck: supple, symmetrical, trachea midline, and no JVD Lungs: b/l air entry Heart: regular rate and rhythm, S1, S2 normal, no murmur, click, rub or gallop Abdomen: soft, non-tender, non-distended, bowel sounds normal; no masses or organomegaly Extremities: L BKA, R AKA with sindhu, healing well, no signs of infection Pulses: +1 pulse Skin: skin color, texture, turgor normal; no rashes or lesions Neurologic: grossly normal Frieda Miller MD Dec 18, 2018 22:50
--- NOTE | 2018-12-18 22:53 | General Progress Note ---
Advance Care Planning Advance Care Planning Advance Care Planning [facility] An independent Hospitalist group, where every patient is our [facility] Internal Medicine Hospitalist Advanced Care Planning Note Please contact us at Date of Discussion: A [id number] discussion with the pt regarding the patient's advanced care planning took place during this hospitalization on the above date. The discussion included the explanation and discussion of advance directives and associated forms/documents, as well as the patient's current code status. We also discussed at length the patient's medical conditions (both acute and chronic), general prognosis, treatment options, and goals of care. The following summarizes the discussion: Advance Care Planning/Goals of Care: - Will attempt to fill out an AD and/or POLST with the patient prior to discharge, if not already completed - Continue current evaluation and management of any acute and chronic medical issues - Will continue to support the patient/family - Will continue to discuss both short- and long-term goals of care DPOA-HC/Surrogate Decision Maker: Sister: Shazia Code Status: DNR/DNI Advanced Care Planning Forms/Documents Completed: Deferred until later encounter/visit A total of 30 minutes was spent on this discussion, including counseling, answering questions, and completing, if any, pertinent advanced care planning forms/documents. Time of note may not reflect time of encounter. Frieda Miller MD Dec 18, 2018 22:53
[2018-12-19] VITALS: BP 146/80
[2018-12-19 04:00] VITALS: BP 116/61
--- NOTE | 2018-12-19 05:31 | NUR ---
NURSE NOTES: Pt is in bed, awake and alert. Patient complains of pain 8/10. Dilaudid 0.5mg given as ordered PRN. Vitals stable. Pt will be monitored.
[2018-12-19 07:07] LABS: ALANINE AMINOTRANSFERASE 8 U/L (12-78); ALBUMIN 1.6 G/DL (3.4-5.0); ALBUMIN/GLOBULIN RATIO 0.3 (1.0-2.7); ALKALINE PHOSPHATASE 150 U/L (46-116); ANION GAP 10 mmol/L (5-15); ASPARTATE AMINO TRANSFERASE 25 U/L (15-37); BLOOD UREA NITROGEN 80 mg/dL (7-18); CALCIUM 7.3 MG/DL (8.5-10.1); CARBON DIOXIDE 26 MMOL/L (21-32); CHLORIDE 92 MMOL/L (98-107); CREATININE 4.1 MG/DL (0.55-1.30); PHOSPHORUS 6.1 MG/DL (2.5-4.9); POTASSIUM 4.4 MMOL/L (3.5-5.1); SODIUM 128 MMOL/L (136-145)
[2018-12-19 07:10] LABS: HEMATOCRIT 33.6 % (42.0-52.0); HEMOGLOBIN 10.9 G/DL (14.2-18.0); MEAN CORPUSCULAR VOLUME 98 FL (80-99); PLATELET COUNT 185 K/UL (150-450); RED BLOOD COUNT 3.42 M/UL (4.70-6.10); RED CELL DISTRIBUTION WIDTH 16.4 % (11.6-14.8); WHITE BLOOD COUNT 15.5 K/UL (4.8-10.8)
[2018-12-19 07:12] LABS: BILIRUBIN,DIRECT 1.6 MG/DL (0.0-0.3)
--- NOTE | 2018-12-19 07:20 | NUR ---
HAND-OFF: Report given to Jayna So RN.Pt is awake and alert. Reports no pain now.
--- NOTE | 2018-12-19 07:47 | NUR ---
NURSE NOTES: Patient received in stable condition, resting in bed at this time. Alert and oriented, breathing unlabored with nasal cannula on 3L/min. Denies pain at this time. Bed locked in low position, call light placed within reach. Will continue to monitor.
[2018-12-19 08:00] VITALS: BP 122/62
[2018-12-19] MEDS: Docusate 100mg/10ml Liq NG SCH (08:13)
[2018-12-19] MEDS: Renvela 800mg Pkt NG SCH (08:13)
[2018-12-19] MEDS: Pyridoxine 50mg tab NG SCH (08:14)
[2018-12-19] MEDS ORDERED: POLYMYXIN B SULFATE IV SCH (09:00)
[2018-12-19] MEDS ORDERED: D5W IV SCH (09:00)
--- NOTE | 2018-12-19 09:01 | General Progress Note ---
Assessment/Plan Problem List: (1) S/P BKA (below knee amputation) ICD Codes: Z89.519 - Acquired absence of unspecified leg below knee SNOMED: 99353677, 065737529 (2) Hx of BKA ICD Codes: Z89.519 - Acquired absence of unspecified leg below knee SNOMED: 035187907, 124306500 (3) Severe sepsis ICD Codes: A41.9 - Sepsis, unspecified organism; R65.20 - Severe sepsis without septic shock SNOMED: 85777924 (4) Diabetes mellitus ICD Codes: E11.9 - Type 2 diabetes mellitus without complications SNOMED: 74000627 (5) ESRF (end stage renal failure) ICD Codes: N18.6 - End stage renal disease SNOMED: 59955631 (6) Leukocytosis ICD Codes: D72.829 - Elevated white blood cell count, unspecified SNOMED: 122973991, 157283742 (7) CHF (congestive heart failure) ICD Codes: I50.9 - Heart failure, unspecified SNOMED: 88478342 (8) Anemia ICD Codes: D64.9 - Anemia, unspecified SNOMED: 870557684 Assessment/Plan comfort measure per patient request on puree renal diet with min po intake pending dc and transfer to [place] Subjective ROS Limited/Unobtainable: Yes Allergies: Coded Allergies: PENICILLINS (Unverified Allergy, Mild, 12/05/18) PHENYTOIN (Verified Allergy, Unknown, 10/17/18) Uncoded Allergies: PENICILLIN (Allergy, Mild, 11/17/18) Objective Last 24 Hour Vital Signs Date Time Temp Pulse Resp B/P (MAP) Pulse Ox O2 Delivery O2 Flow Rate FiO2 12/19/18 08:00 95.9 66 18 122/62 (82) 97 12/19/18 04:00 97.8 66 20 116/61 (79) 96 12/19/18 00:00 97.0 68 20 146/80 (102) 99 12/18/18 21:00 Nasal Cannula 3.0 12/18/18 20:00 97.1 73 18 141/70 (93) 100 12/18/18 16:00 98.1 67 19 147/60 (89) 98 12/18/18 15:38 97.1 12/18/18 12:00 97.1 60 16 144/75 (98) 96 3/26/19 09:39 98 Nasal Cannula 3.0 32 12/18/18 09:39 Nasal Cannula 3.0 32 Intake and Output 12/18/18 12/19/18 18:59 06:59 Intake Total 575 ml Balance 575 ml Intake Oral 60 ml IV Total 515 ml Laboratory Tests 12/19/18 06:15: White Blood Count 15.5H, Red Blood Count 3.42L, Hemoglobin 10.9L, Hematocrit 33.6L, Mean Corpuscular Volume 98, Mean Corpuscular Hemoglobin 31.8H, Mean Corpuscular Hemoglobin Concent 32.4, Red Cell Distribution Width 16.4H, Platelet Count 185, Mean Platelet Volume 10.9H, Neutrophils (%) (Auto) , Lymphocytes (%) (Auto) , Monocytes (%) (Auto) , Eosinophils (%) (Auto) , Basophils (%) (Auto) , Differential Total Cells Counted 100, Neutrophils % ( Manual) 89H, Lymphocytes % (Manual) 5L, Monocytes % (Manual) 5, Eosinophils % ( Manual) 0, Basophils % (Manual) 1, Band Neutrophils 0, Platelet Estimate Adequate, Platelet Morphology Normal, Anisocytosis 1+, Macrocytosis 1+, Target Cells 1+, Sodium Level 128L, Potassium Level 4.4, Chloride Level 92L, Carbon Dioxide Level 26, Anion Gap 10, Blood Urea Nitrogen 80H, Creatinine 4.1H, Estimat Glomerular Filtration Rate 14.7, Glucose Level 79, Calcium Level 7.3L, Phosphorus Level 6.1H, Magnesium Level 2.3, Total Bilirubin 2.0H, Direct Bilirubin 1.6H, Aspartate Amino Transf (AST/SGOT) 25, Alanine Aminotransferase ( ALT/SGPT) 8L, Alkaline Phosphatase 150H, C-Reactive Protein, Quantitative 8.7H, Pro-B-Type Natriuretic Peptide > 18661X, Total Protein 6.6, Albumin 1.6L, Globulin 5.0, Albumin/Globulin Ratio 0.3L, Random Vancomycin Level 22.9 Height (Feet): 5 Height (Inches): 4.00 Weight (Pounds): 127 General Appearance: alert EENT: normal ENT inspection Neck: supple Cardiovascular: normal rate Respiratory/Chest: decreased breath sounds Abdomen: normal bowel sounds, non tender, soft Extremities: non-tender Antione Salomon MD Dec 19, 2018 09:01
[2018-12-19] MEDS ORDERED: Lactulose 20gm/30ml UDC ORAL SCH (10:15)
--- NOTE | 2018-12-19 11:00 | NUR ---
PRONOUNCEMENT: No Code. Called to pronounce patient. Absence of spontaneous respirations, no cardiac or breath sounds on auscultation. Pupils fixed and dilated. No carotid pulse or chest movement. Patient at 1100. notified PER . Phone call placed to Family, but there was no answer
--- NOTE | 2018-12-19 11:32 | NUR ---
NURSE NOTES: Patient , time of pronouncement 1100. [employer] called, spoke with [employer] sales representative Rosemarie who stated the patient was not a donor candidate Ref# [id number]. Attempted to reach sister on file, phone number not in service. Patient was cleaned and placed in bag for security [place] [facility] [place] only had 1 belongings: dentures, which was placed in its case next to the patient.
[2018-12-19] MEDS ORDERED: Tubing IV Secondary IV ONE (12:59)
--- NOTE | 2018-12-20 20:08 | Discharge Summary ---
Discharge Summary Hospital Course Date of Admission Dec 04, 2018 at 20:18 Date of Discharge Dec 19, 2018 at 13:00 Admitting Diagnosis resp distress Reason for Hospitalization: sepsis 2/2 RLE infection HPI Emile Weber is a 68 year old male who was admitted on Dec 04, 2018 at 20: 18 for Respiratory Distress Consultations Surgery, ID, nephrology, pulmonary, vascular surgery, podiatry Hospital Course Assessment 68 year old male with PMH of DM, ESRD on HD (MWF - Last 12/03/18), s/p L BKA, L chronic pressure ulcer and PVD was transferred from SNF for acute onset of shortness of breath and altered mental status, admitted for severe sepsis likely 2/2 R foot infection vs UTI vs PNA. Pt was started on broad spectrum antibiotics per ID recs, RLE was evaluated by surgery, vascular and podiatry teams, recommended amputation for ischemic gangrene, however pt refused. Hospitalization course complicated by acute respiratory failure and was intubated for airway protection. While intubated, pt had good mental status, was able to communicate that he would like RLE amputated due to chronic infection. Pt had AKA on 12/11 with no surgical complications, incision site well healed. Pt failed multiple attempts to wean off of ventilator, likely 2/2 deconditioning and large ascites. Pt had paracenthesis with 6 L removed with albumin infusion post procedure. Pt along with sister had decided to change his code status to DNR/DNI, and requested for him to be extubated, with no reintubation. Pt was successfully extubated to OR and transferred to step down unit. Pt noted to be more lethargic likely 2/2 acute hypercapnic respiratory failure. Pt found to be pulseless with absence of spontaneous respirations and no cardiac or breath sounds on auscultation. Pt was pronounced at 1100, family was notified. Discharge Condition Upon Discharge: other - Discharge Disposition Patient Angela,Frieda OATES Dec 20, 2018 20:08
== END 2018-12-19 13:00 | disposition expired | DRG 853 ==
LOC: EDBD 19:02 → EMR 19:50 → 2W 20:18 → EDBEDREQ 21:21 → ICU 12-11 02:04 → 2W 12-16 18:49 → 4E 12-17 20:14
PROC: 5A1D70Z Performance of Urinary Filtration, Intermittent, Less than 6 Hours Per Day (ICD-10-PCS; principal; 2018-12-04)
PROC: 0Y6C0Z3 Detachment at Right Upper Leg, Low, Open Approach (ICD-10-PCS; 2018-12-11)
PROC: 0BH17EZ Insertion of Endotracheal Airway into Trachea, Via Natural or Artificial Opening (ICD-10-PCS; 2018-12-11)
PROC: 5A1955Z Respiratory Ventilation, Greater than 96 Consecutive Hours (ICD-10-PCS; 2018-12-11)
PROC: 0W9G3ZZ Drainage of Peritoneal Cavity, Percutaneous Approach (ICD-10-PCS; 2018-12-14)
DX: A41.9 Sepsis, unspecified organism (principal); L89.614 Pressure ulcer of right heel, stage 4; N18.6 End stage renal disease; G93.41 Metabolic encephalopathy; J96.02 Acute respiratory failure with hypercapnia; J15.212 Pneumonia due to Methicillin resistant Staphylococcus aureus; I21.4 Non-ST elevation (NSTEMI) myocardial infarction; N39.0 Urinary tract infection, site not specified; I13.2 Hypertensive heart and chronic kidney disease with heart failure and with stage 5 chronic kidney disease, or end stage renal disease; I96 Gangrene, not elsewhere classified; J44.0 Chronic obstructive pulmonary disease with (acute) lower respiratory infection; D68.9 Coagulation defect, unspecified; M86.171 Other acute osteomyelitis, right ankle and foot; R18.8 Other ascites; E87.1 Hypo-osmolality and hyponatremia; Z99.2 Dependence on renal dialysis; R65.20 Severe sepsis without septic shock; E11.22 Type 2 diabetes mellitus with diabetic chronic kidney disease; I50.9 Heart failure, unspecified; E11.649 Type 2 diabetes mellitus with hypoglycemia without coma; Z89.512 Acquired absence of left leg below knee; I73.89 Other specified peripheral vascular diseases; E87.5 Hyperkalemia; D64.9 Anemia, unspecified; R19.7 Diarrhea, unspecified; R13.10 Dysphagia, unspecified; Z93.1 Gastrostomy status; F41.9 Anxiety disorder, unspecified; E80.6 Other disorders of bilirubin metabolism; Z51.5 Encounter for palliative care; Z66 Do not resuscitate; D69.6 Thrombocytopenia, unspecified
CPT/HCPCS: 36415; 36600; 71045; 71275; 74018; 75635; 76700; 76942; 80053; 80061; 80202; 81001; 81003; 82140; 82248; 82270; 82378; 82550; 82607; 82728; 82746; 82784; 82803; 82962; 82977; 83540; 83550; 83605; 83615; 83690; 83735; 83880; 84100; 84165; 84443; 84484; 84550; 85007; 85025; 85044; 85060; 85379; 85610; 85651; 85730; 86140; 86334; 86710; 86850; 86900; 86901; 86920; 87040; 87070; 87081; 87086; 87181; 87205; 87324; 88104; 93005; 93306; 93925; 93970; 94002; 94003; 94150; 94640; 94660; 94664; 94760; 96365; 96367; 96368; 96375; 99285; A4246; J0171; J2765